=== PATIENT | female | born 1980 | race Caucasian/White ===

== ENCOUNTER → 2020-04-21 11:07 | Outpatient (BNVA) | payer OTHER, SELFPAY | PROVIDERS: Visit Provider Urology | DX: Z76.89 Persons encountering health services in other specified circumstances (principal) | CPT/HCPCS: 99212 ==

== ENCOUNTER 2020-05-02 12:10 | Outpatient (REF) | payer OTHER, SELFPAY ==
[2020-05-02 13:33] LABS: MANUAL DIFF FLAG NO
[2020-05-02 13:48] LABS: Basophils Percent Auto 0.5 % (0-2); Eosinophils Absolute Auto 0.1 X10*3/uL (0.0-0.4); Eosinophils Percent Auto 1.3 % (0-4); Hematocrit 39.8 % (37-47); Hemoglobin 13.7 g/dl (12.0-16.0); Imm Gran Abs Auto 0.02 X10*3/uL (0.00-0.03); Imm Gran Pct Auto 0.2 % (0.0-0.4); Lymphocytes Absolute Auto 1.7 X10*3/uL (1.2-4.9); Lymphocytes Percent Auto 19.8 % (20-40); Mean Corpuscular HGB Conc 34.4 g/dl (31.0-35.0); Mean Corpuscular Hemoglobin 33.8 pg (27.0-33.0); Mean Corpuscular Volume 98.3 fL (80-98); Mean Platelet Volume 10.6 fL (9.4-12.3); Monocytes Absolute Auto 0.6 X10*3/uL (0.1-1.2); Monocytes Percent Auto 7.7 % (2-11); Neutrophils Absolute Auto 5.9 X10*3/uL (2.0-8.3); Neutrophils Percent Auto 70.5 % (45-73); Platelet Count 312 X10*3/uL (160-400); Red Blood Count 4.05 X10*6/uL (4.20-5.50); Red Cell Distribution Width 11.7 % (11.0-16.0); White Blood Count 8.3 X10*3/uL (4.8-10.8)
[2020-05-02 13:51] LABS: Glucose Urine UA NEG (NEG); Leukocyte Esterase Urine NEG (NEG); Nitrite Urine NEG (NEG); PH 5.5 (5.0-8.0); Specific Gravity - Urine 1.025 (1.005-1.025); Urine Blood 2+ (NEG); Urine Ketones NEG (NEG); Urine Protein NEG (NEG-TRACE)
[2020-05-02 13:53] LABS: Appearance Urine HAZY; Color Urine YELLOW
[2020-05-02 14:01] LABS: UACC CULT YES
[2020-05-02 14:02] LABS: Bacteria Urine TRACE /LPF; Squamous Epithelial Cell Urine TRACE /LPF
[2020-05-02 14:38] LABS: Alanine Aminotransferase 17 U/L (0-31); Albumin Level 3.7 g/dL (3.5-5.0); Alkaline Phosphatase 40 U/L (39-117); Anion Gap 12 (12-20); Aspartate Amino Transferase 18 U/L (5-31); Bilirubin Total 0.6 mg/dL (0.0-1.0); Blood Urea Nitrogen 17 mg/dL (9-16); Calcium 8.5 mg/dL (8.4-10.2); Carbon Dioxide 23 mmol/L (22-29); Chloride 104 mmol/L (96-108); Estimated Glomerular Filt Rate > 60; Glucose Random 90 mg/dL (60-115); Potassium 4.1 mmol/l (3.3-5.1); Sodium 135 mmol/L (135-145); Total Protein 6.8 g/dL (6.5-8.0)
[2020-05-02 15:42] LABS: TSH reflex Free T4 1.54 mIU/mL (0.32-4.0)
[2020-05-09 14:22] LABS: Creatinine Random Urine 99 mg/dL (20-275); Metanephrine, Free Rand Ur 133 mcg/g cr (32-134); Normetanephrine, Free Rand Ur 228 mcg/g cr (67-390); Total Metanephrine, Free RU 361 mcg/g cr (94-445)
== END 2020-05-02 12:11 | disposition home or self-care (01) ==
LOC: HO.10HDL 12:10
PROVIDERS: Visit Provider Internal Medicine
DX: I10 Essential (primary) hypertension (principal); R00.0 Tachycardia, unspecified
CPT/HCPCS: 36415; 80053; 81001; 83835; 84443; 85025; 87086

== ENCOUNTER 2020-05-04 08:07 | Outpatient (REF) | payer OTHER, SELFPAY ==
--- NOTE | 2020-05-04 08:12 | US_ITS ---
EXAMINATION: US RENAL ARTERY DOPPLER CLINICAL INFORMATION: Essential hypertension COMPARISON: Ultrasound of October 13, [address] scan of January 10, 2015 TECHNIQUE: Renal ultrasound. . Real-time ultrasound and Doppler techniques (integrating B-mode 2D vascular images, Doppler spectral analysis and color flow Doppler imaging) were utilized to interrogate the renal arteries and aorta. FINDINGS: The right kidney measures 7.0 cm x 3.4 cm x 4.7 cm in sagittal, AP and transverse dimensions. There is a 1.3 x 1.1 x 1.5 cm simple-appearing midpole cyst. No hydronephrosis. No solid renal mass is seen. No cortical thinning is noted. There is normal cortical echogenicity with no evidence of medical renal disease. No obstructing calculi are identified. The left kidney measures 10.9 cm x 5.2 cm x 4.9 cm in sagittal, AP and transverse dimensions. There is a 1 cm midpole cyst which appears complex but is unchanged compared to study of October 13, 2017. There are regions of increased echogenicity consistent with calculi with 2 larger echogenic structures within the lower pole one measuring 3 mm in diameter and the other one 5 mm in diameter consistent with nonobstructing calculi. No hydronephrosis or cortical thinning. RENAL ARTERY VELOCITIES: Right: Proximally: 84 cm/s. Mid: 100 cm/s. Distal: 148 cm/s. Left: Proximally: 122 cm/s. Mid: 77 cm/s. Distally: 44 cm/s. The aortic velocity is 87 cm/s. The renal aortic ratio is 1.7 on the right and 1.4 on the left. These values are within normal limits. Segmental resistive indices: Right: Upper pole 0.52 Mid pole 0.59 Lower pole 0.56 Left: Upper pole 0.51 Midpole 0.57 Lower pole: 0.57 Both renal veins are patent. US/US renal doppler IMPRESSION: 1. Stable bilateral renal cysts with mildly complex left renal cyst compared to study of October 13, 2017. This has the appearance of a Bosniak 2F cyst however has been stable for greater than two-year period. 2. There is no evidence of hemodynamically significant renal artery stenosis. 3. Left nephrolithiasis. Previously noted right renal calculi not definitely identified.
== END 2020-05-04 08:08 | disposition home or self-care (01) ==
LOC: HO.US 08:07
PROVIDERS: PCP Internal Medicine; Visit Provider Urology
DX: N20.0 Calculus of kidney (principal); I10 Essential (primary) hypertension
CPT/HCPCS: 76775; 93975

== ENCOUNTER 2020-06-06 11:11 | Outpatient (REF) | payer OTHER, SELFPAY ==
[2020-06-06 14:18] LABS: Glucose Urine UA NEG (NEG); Leukocyte Esterase Urine 1+ (NEG); Nitrite Urine NEG (NEG); Specific Gravity - Urine 1.015 (1.005-1.025); Urine Blood 2+ (NEG); Urine Ketones NEG (NEG); Urine Protein NEG (NEG-TRACE)
[2020-06-06 14:23] LABS: Appearance Urine HAZY; Color Urine YELLOW
[2020-06-06 14:31] LABS: Cholesterol 168 mg/dL; HDL Cholesterol 53 mg/dL; LDL Cholesterol Calculated 93 mg/dl; Triglycerides 110 mg/dL
[2020-06-06 14:41] LABS: Mucus Urine 1+ /LPF; RBC Urine 0 /HPF (0); Squamous Epithelial Cell Urine 2+ /LPF
== END 2020-06-06 11:12 | disposition home or self-care (01) ==
LOC: HO.10HDL 11:11
PROVIDERS: PCP Internal Medicine; Visit Provider Internal Medicine
DX: R09.89 Other specified symptoms and signs involving the circulatory and respiratory systems (principal); R00.0 Tachycardia, unspecified; I10 Essential (primary) hypertension
CPT/HCPCS: 80061; 81001; 81003; 87086

== ENCOUNTER → 2020-06-14 08:33 | Outpatient (BNVA) | payer OTHER, SELFPAY | PROVIDERS: PCP Internal Medicine; Visit Provider Internal Medicine | DX: I10 Essential (primary) hypertension (principal); R09.89 Other specified symptoms and signs involving the circulatory and respiratory systems; R06.02 Shortness of breath; M45.9 Ankylosing spondylitis of unspecified sites in spine | CPT/HCPCS: 93005; 99202 ==

== ENCOUNTER → 2020-07-12 10:37 | Outpatient (REF) | payer OTHER, SELFPAY ==
--- NOTE | 2020-07-12 10:43 | CA_ITS ---
Acquisition Time: 2020-07-12 11:36:45 Total Exercise Time: 00:10:38 Test Indications: Dyspnea Medications: SEE CHART Protocol: BATOOL Max HR: 169 BPM 93% of Pred: 181 BPM Max BP: 180/100 mmHG Max Work Load: 12.7 METS Exercise stress ECHO using Batool protocol, total of 10 min 38 sec. METS 12.70 , TAPHR up to 93 % . Pt tolerated well. Denies any anginal sx. EKG with occ. PVC's. ECHO images taken at rest and immediately after peak exercise. Defenity contrast used. Hypertensive response to exercise. Test reviewed with Dr. Beebe. No ischemic changes seen during exercise or in recovery Referred By: Sameer Beebe Overread By: Deepthi Forde
--- NOTE | 2020-07-12 10:43 | CA_ITS ---
Transthoracic Echocardiogram Patient (Last, First, Middle): Erendira Joel, Gender: Female Date of : 1980 Age: 39 Procedure Date: 07/12/2020 Procedure Type: Transthoracic Echocardiogram Location: OP Height: 154.94 cm Weight: 58.97 kg BSA: 1.57 m2 Heart Rate: bpm BP: 135 / 90 mmHg Stunner Animal: [id number] Referring MD: Sameer Beebe MD Symptoms: R06.02 - Shortness of breath Study Quality: Good ECG Rhythm: Sinus Conclusions: - The left ventricular systolic function is normal. The visually estimated ejection fraction is between 60-65%. - No obvious valvular pathology seen on this study. Findings Left Ventricle Normal left ventricular cavity size. There is mildly increased left ventricular wall thickness. The left ventricular systolic function is normal. The visually estimated ejection fraction is between 60-65%. There is no evidence of regional wall motion abnormalities. Diastolic function is normal for age. Right Ventricle Normal right ventricular cavity size and systolic function. Atria The left atrium is normal in size. The right atrium is normal in size. Aortic Valve There is a normal trileaflet aortic valve. There is no aortic valve stenosis. There is no aortic valve regurgitation. Mitral Valve The mitral valve appears normal. There is trace mitral valve regurgitation. There is no mitral valve stenosis. Pulmonic Valve The pulmonic valve was not well visualized. Tricuspid Valve Normal tricuspid valve structure. There is trace tricuspid valve regurgitation. The pulmonary artery systolic pressure is normal. Great Vessels The aortic annulus, sinuses of valsalva, and asc aorta are normal in size. Venous The inferior vena cava is normal in size and collapses greater than 50% with inspiration. Pericardium/Pleural There is no evidence of pericardial effusion. Prior Study Comparison No prior study available for comparison. Recommendations, Care & Conclusions No obvious valvular pathology seen on this study. Measurements M-Mode Liner Measurements Normals - Women/Men IVSd: 1.36 0.6-0.9/0.6-1.0 cm LVIDd: 3.87 3.9-5.3/4.2-5.9 cm LVIDd Index: 2.46 1.9-3.2 cm/m2 LVPWd: 1.15 0.6-0.9/0.6-1.0 cm LV Mass: 209.80 67-162/88-224g LV Mass Index: 133.63 43-95/49-115 g/m2 M-Mode Volumes LV EDV: 64.70 2D Linear Measurements IVSd: 1.19 0.6-0.9/0.6-1.0 cm LVIDd: 4.12 3.9-5.3/4.2-5.9 cm LVIDd Index: 2.62 2.4-3.2/2.2-3.1 cm/m2 LVIDs: 2.76 2.0-3.6 cm LVPWd: 1.20 0.7-1.1 cm Ao Root: 2.60 2.1-3.5 cm LA Diam: 3.50 2.7-3.8/3.0-4.0 cm LAIDs Index: 2.23 1.5-2.3 cm/m2 LV Mass: 214.20 67-162/88-224 g LV Mass Index: 136.43 43-95/49-115 g/m2 LVOT Diam: 1.90 3.0+(-)1.3 cm 2D Systolic Function EF 4C: 68.20 >55% EF 2C: 53.00 >55% EF BiP: 62.20 >55% Mitral Valve MV Pk E: 0.63 MV PK A: 0.55 MV Decel Time: 148.00 E/A: 1.20 E'Lateral: 10.30 E'Medial: 8.61 E/E' Med: 7.30 E/E' Lat: 6.10 PHT: 43.00 MVA PHT: 5.12 Decel [place]: 4.[address] Valve AoV Pk [address]: 1.33 AoV Pk Grad: 7.[address]: 1.[address]: 0.76 LVOT VTI: 0.22 LVOT Pk Grad: 5.00 LVOT Mn Grad: 3.00 LVOT Diam: 1.90 LVOT Area: 2.84 Diastolic Function MV Pk E: 0.63 MV Pk A: 0.55 E/A: 1.20 E'Medial: 8.61 E/E' Med: 7.30 E' Laterial: 10.30 E/E' Lat: 6.[address]: 1.94 TR Pk Grad: 15.00 RA Press: 3.00 Great Vessels Aorta Ao Root-2D: 2.60 2.0-3.7 cm Ao Asc: 2.70 2.1-3.4 cm Updated in Other Vendor System with Status of Final Sameer Beebe MD electronically signed on 07/14/2020 4:01:42 PM with status of Final
== END ==
LOC: HO.CARD 10:37
PROVIDERS: Visit Provider Internal Medicine
DX: R06.02 Shortness of breath (principal)
CPT/HCPCS: 93306; 93350; Q9957

== ENCOUNTER → 2020-07-19 09:01 | Outpatient (BNVA) | payer OTHER, SELFPAY | PROVIDERS: PCP Internal Medicine; Visit Provider Internal Medicine | DX: R09.89 Other specified symptoms and signs involving the circulatory and respiratory systems (principal); R06.02 Shortness of breath; M45.9 Ankylosing spondylitis of unspecified sites in spine | CPT/HCPCS: 99212 ==

== ENCOUNTER 2020-07-21 18:06 | Outpatient (REF) | payer OTHER, SELFPAY | END 2020-07-21 18:07 | disposition home or self-care (01) | LOC: HO.LNP 18:06 | PROVIDERS: Visit Provider Internal Medicine | DX: J02.9 Acute pharyngitis, unspecified (principal); Z20.822 Contact with and (suspected) exposure to COVID-19 | CPT/HCPCS: U0003 ==

== ENCOUNTER → 2020-08-30 12:33 | Outpatient (BNVA) | payer OTHER, SELFPAY | PROVIDERS: PCP Internal Medicine; Visit Provider Internal Medicine | DX: R09.89 Other specified symptoms and signs involving the circulatory and respiratory systems (principal); R06.02 Shortness of breath; M54.9 Dorsalgia, unspecified; Z79.899 Other long term (current) drug therapy | CPT/HCPCS: Q3014 ==

== ENCOUNTER 2021-03-13 09:36 | Outpatient (REF) | payer OTHER, SELFPAY ==
[2021-03-13 10:07] LABS: Appearance Urine HAZY; Color Urine YELLOW; Glucose Urine UA NEG (NEG); Leukocyte Esterase Urine 2+ (NEG); Nitrite Urine NEG (NEG); Specific Gravity - Urine 1.025 (1.005-1.025); Urine Blood 2+ (NEG); Urine Ketones NEG (NEG); Urine Protein NEG (NEG-TRACE)
[2021-03-13 10:23] LABS: Bacteria Urine 2+ /LPF; Squamous Epithelial Cell Urine 2+ /LPF
== END 2021-03-13 09:37 | disposition home or self-care (01) ==
LOC: HO.10HDL 09:36
PROVIDERS: Visit Provider Urology
DX: N39.0 Urinary tract infection, site not specified (principal)
CPT/HCPCS: 81001; 87086

== ENCOUNTER 2021-06-26 17:19 | Outpatient (REF) | payer OTHER, SELFPAY | END 2021-06-26 17:20 | disposition home or self-care (01) | LOC: HO.LNP 17:19 | PROVIDERS: Visit Provider Nurse Practitioner Family | DX: R35.0 Frequency of micturition (principal) | CPT/HCPCS: 87086 ==

== ENCOUNTER 2021-07-23 10:03 | Outpatient (REF) | payer OTHER, SELFPAY ==
[2021-07-23 15:51] LABS: CT PCR NOT DETECTED (Not Detect.); NG PCR NOT DETECTED (Not Detect.)
[2021-07-24 15:47] LABS: BV Int Neg Control Negative (Negative); BV Int Pos Control Positive (Positive)
[2021-07-25 22:26] LABS: HPV mRNA E6/E7 rflx Not Detected (Not Detected)
== END 2021-07-23 10:04 | disposition home or self-care (01) ==
LOC: HO.LAB 10:03
PROVIDERS: PCP Internal Medicine; Visit Provider Advanced Practice Midwife
DX: Z01.411 Encounter for gynecological examination (general) (routine) with abnormal findings (principal); Z11.51 Encounter for screening for human papillomavirus (HPV); R10.2 Pelvic and perineal pain; Z20.2 Contact with and (suspected) exposure to infections with a predominantly sexual mode of transmission
CPT/HCPCS: 81003; 81025; 87086; 87480; 87491; 87510; 87591; 87624; 87660; 88142

== ENCOUNTER 2021-07-26 15:32 | Outpatient (REF) | payer OTHER, SELFPAY ==
--- NOTE | ~2021-07-26 | MM_ITS ---
EXAMINATION: MM SCREENING DIGITAL BREAST TOMOSYNTHESIS, BILATERAL CLINICAL INFORMATION: Screening. Asymptomatic. The lifetime risk of breast cancer based on the Tyrer-Cuzick Model is 11.8%. COMPARISON: Mammography: None TECHNIQUE: Digital mammography is performed in craniocaudal and mediolateral oblique views along with computer-aided detection (CAD). Digital breast tomosynthesis is performed in implant-displaced craniocaudal and implant-displaced mediolateral oblique views along with computer-aided detection (CAD). Synthesized 2D images are generated from the tomosynthesis. FINDINGS: The breasts are heterogeneously dense, which may obscure small masses (ACR BI-RADS breast composition Category c). There are no significant masses, abnormal calcifications, or other abnormalities. MM/MM tomosynthesis screen imp BI IMPRESSION: No mammographic evidence of malignancy. ASSESSMENT: BI-RADS 1: Negative RECOMMENDATION: Routine annual mammography screening. This patient's information was entered into a reminder system with a target due date for their next mammogram.
== END 2021-07-26 15:33 | disposition home or self-care (01) ==
LOC: HO.MAMMO 15:32
PROVIDERS: PCP Internal Medicine; Visit Provider Advanced Practice Midwife
DX: Z12.31 Encounter for screening mammogram for malignant neoplasm of breast (principal); Z98.82 Breast implant status
CPT/HCPCS: 77063; 77067

== ENCOUNTER 2021-08-07 11:30 | Outpatient (REF) | payer OTHER, SELFPAY ==
[2021-08-08 03:43] LABS: Syphilis Screen Nonreactive (Nonreactive)
[2021-08-08 03:46] LABS: HBc Num1 0.08 S/CO (0.00-0.79); HIV AB/AG Nonreactive (Nonreactive); HIV Num 1 0.08 S/CO (0.00-0.99); Hepatitis B Core Antibody Nonreactive (Nonreactive)
[2021-08-08 04:00] LABS: ~HepC Num1 0.09 S/CO (0.00-0.79); ~Hepatitis C Antibody Nonreactive (Nonreactive)
== END 2021-08-07 11:31 | disposition home or self-care (01) ==
LOC: HO.10HDL 11:30
PROVIDERS: Visit Provider Advanced Practice Midwife
DX: Z11.4 Encounter for screening for human immunodeficiency virus [HIV] (principal); Z20.2 Contact with and (suspected) exposure to infections with a predominantly sexual mode of transmission
CPT/HCPCS: 36415; 86704; 86780; 86803; 87389

== ENCOUNTER 2021-08-15 11:06 | Outpatient (REF) | payer OTHER, SELFPAY ==
--- NOTE | ~2021-08-15 | US_ITS ---
EXAMINATION: US PELVIS CLINICAL INFORMATION: Pelvic and perineal pain COMPARISON: None TECHNIQUE: Ultrasound of the pelvis is performed using both transabdominal and transvaginal transducers along with Doppler. Transvaginal imaging is performed due to inadequate visualization transabdominally. FINDINGS: The uterus is anteverted and measures 8.1 x 3.3 x 5.5 cm in dimension. No focal uterine lesion is seen. Endometrial thickness is normal measuring 0.6 cm. The ovaries are normal-appearing. The right ovary measures 3.5 x 1.2 x 2.9 cm. The left ovary measures 2.9 x 1.5 x 2 cm. There is no fluid in the pelvis. US/US pelvic and transvaginal IMPRESSION: Unremarkable exam.
== END 2021-08-15 11:07 | disposition home or self-care (01) ==
LOC: HO.US 11:06
PROVIDERS: Absent Provider Nurse Practitioner Family; PCP Internal Medicine; Visit Provider Advanced Practice Midwife
DX: R10.2 Pelvic and perineal pain (principal)
CPT/HCPCS: 76830; 76856

== ENCOUNTER 2021-08-20 12:47 | Outpatient (REF) | payer OTHER, SELFPAY ==
[2021-08-20 14:03] LABS: Hematocrit 38.8 % (37.0-47.0); Hemoglobin 13.2 g/dl (12.0-16.0); Mean Corpuscular Hemoglobin 33.4 pg (27.0-33.0); Mean Corpuscular Volume 98.2 fL (80.0-98.0); Mean Platelet Volume 10.5 fL (9.4-12.3); Platelet Count 310 X10*3/uL (160-400); Red Blood Count 3.95 X10*6/uL (4.20-5.50); Red Cell Distribution Width 11.6 % (11.0-16.0); White Blood Count 7.9 X10*3/uL (4.8-10.8)
[2021-08-20 14:25] LABS: Creatinine Urine 115.25 mg/dL; Microalbum/Creatinine Ratio Ur 7.8 ug/mg cr
[2021-08-20 14:33] LABS: Alanine Aminotransferase 18 U/L (0-31); Albumin Level 3.7 g/dL (3.5-5.0); Alkaline Phosphatase 47 U/L (39-117); Anion Gap 11 (12-20); Aspartate Amino Transferase 17 U/L (5-31); Bilirubin Direct 0.2 mg/dL (0.0-0.5); Bilirubin Total 0.5 mg/dL (0.0-1.0); Blood Urea Nitrogen 17 mg/dL (9-16); Carbon Dioxide 24 mmol/L (22-29); Chloride 106 mmol/L (96-108); Estimated Glomerular Filt Rate > 60; Glucose Random 88 mg/dL (60-115); Potassium 4.2 mmol/L (3.3-5.1); Sodium 137 mmol/L (135-145); Total Protein 6.7 g/dL (6.5-8.0)
== END 2021-08-20 12:48 | disposition home or self-care (01) ==
LOC: HO.10HDL 12:47
PROVIDERS: Visit Provider Physician Assistant
DX: I10 Essential (primary) hypertension (principal)
CPT/HCPCS: 36415; 80048; 80076; 82043; 85027

== ENCOUNTER 2021-08-25 13:00 | Emergency (ER) | payer OTHER, SELFPAY ==
--- NOTE | ~2021-08-25 | CT_ITS ---
EXAMINATION: CT HEAD WITHOUT CONTRAST CLINICAL INFORMATION: Hypertension. Headache. Nausea. COMPARISON: None TECHNIQUE: Contiguous axial imaging was performed from the skull base to vertex without intravenous administration of contrast. This CT examination was performed using dose optimization techniques as appropriate, variously including the following: *Automated exposure control *Adjustment of mA and/or kV according to patient size (this includes techniques or standardized protocols for targeted exams where dose is matched to indication/reason for exam; i.e. extremities or head) *Use of iterative reconstruction technique DLP: 609 mGy-cm FINDINGS: There is no evidence of acute intracranial hemorrhage or territorial infarction. No abnormal mass effect or midline shift is seen. Wang to white matter differentiation is well preserved. No extra-axial fluid collections are identified. The ventricles are normal in size. There is no abnormal attenuation within the brain parenchyma. The osseous structures and soft tissues are normal. The mastoid air cells and visualized portions of the paranasal sinuses are well aerated. CT/CT head/brain wo con IMPRESSION: Unremarkable exam.
[2021-08-25 13:14] VITALS: BP 140/89; PULSE 94; RESP 16; TEMP 36.5; O2SAT 100; BMI 24.5
--- NOTE | 2021-08-25 13:46 | ECG_ITS ---
Test Reason : hypertension Blood Pressure : / mmHG Vent. Rate : 070 BPM Atrial Rate : 070 BPM P-R Int : 154 ms QRS Dur : 086 ms QT Int : 384 ms P-R-T Axes : 046 039 030 degrees QTc Int : 414 ms Normal sinus rhythm with sinus arrhythmia Normal ECG No previous ECGs available Referred By: Maddi Garvey Electronically Signed By:Lewis Dotson
--- NOTE | 2021-08-25 13:48 | ED.GENADULT ---
HPI - General Adult General Chief complaint: General Medical <Maddi Garvey NP - Last Filed: 08/25/21 15:57> Stated complaint: high bp <Maddi Garvey NP - Last Filed: 08/25/21 15:57> Time Seen by Provider: 08/25/21 13:25 <Maddi Garvey NP - Last Filed: 08/25/21 15:57> Source: patient <Maddi Garvey NP - Last Filed: 08/25/21 15:57> Mode of arrival: ambulatory <Maddi Garvey NP - Last Filed: 08/25/21 15:57> Limitations: no limitations <Maddi Garvey NP - Last Filed: 08/25/21 15:57> History of Present Illness HPI narrative: 40yo female with past medical history significant for ankylosing spondylitis on embrel, tachycardia, chronic UTI, nephrolithiasis here with reports of intermittent headaches/nausea for the last month. Patient tells me that she has had some elevated blood pressure over the last year. She has been seen by her primary care doctor and they been monitoring it. She had been seen by Dr. Beebe from Cardiology and was started on amlodipine 5 mg daily. Patient reports she was intermittently compliant with this. She did have an outpatient stress test last year which she tells me was normal. Patient tells me she was trying to manage her blood pressure by exercising, limiting sodium and caffeine in her diet. Patient reports that she was doing this dental about 1 month ago when she started to have some headaches and nausea. She is our primary care doctor and she started back on her amlodipine 5 mg on August 20. She tells me she has been monitor her blood pressure and stool was noted that her diastolic blood pressure was over 100. She called back her primary care doctor and they added hydrochlorothiazide 12.5 mg which she has been taking for the last 48 hours. Patient tells me that she feels like her blood pressure is still elevated. She has been having continued headaches and nausea and after speaking to her primary care doctor today it was recommended she come to the emergency room to have a CT scan of her head. Patient tells me that she had labs, urine testing on August 20 by her primary care doctor which were all normal. She is scheduled to have an outpatient renal ultrasound on September 04. She has had a previous renal US 2020 was negative for renal artery stenosis <Maddi Garvey NP - Last Filed: 08/25/21 15:57> Related Data Home medications: Home Medications Medication Instructions Recorded Confirmed fexofenadine 180 mg tablet 180 mg PO DAILY PRN 05/03/21 08/20/21 etanercept 50 mg/mL (1 mL) mg SUBCUT 06/26/21 08/20/21 subcutaneous cartridge (Enbrel Mini) Previous Rx's Medication Instructions Recorded amlodipine 5 mg tablet 5 mg PO DAILY 30 Days #30 tab 08/20/21 hydrochlorothiazide 12.5 mg tablet 12.5 mg PO DAILY 30 Days #30 tab 08/23/21 <Maddi Garvey NP - Last Filed: 08/25/21 15:57> Allergies/adverse reactions: Allergies Allergy/AdvReac Type Severity Reaction Status Date / Time No Known Allergies Allergy Verified 08/29/21 11:36 <Maddi Garvey NP - Last Filed: 08/25/21 15:57> Review of Systems Review of Systems: Yes all other systems are reviewed and are negative <HEBERT Barillas Last Filed: 08/25/21 15:57> Constitutional: Constitutional: Reports no additional constitutional complaints, Denies body ache(s), Denies chills, Denies fever(s), Reports headache(s) and Denies weakness <Maddi Garvey NP - Last Filed: 08/25/21 15:57> Eyes: Eyes: Reports no additional eye complaints and Denies change in vision <Maddi Garvey NP - Last Filed: 08/25/21 15:57> ENT: Reports system reviewed and no additional complaints, except as documented, Denies dizziness, Reports headache(s), Denies nasal congestion, Denies nasal discharge and Denies neck pain <Maddi Garvey NP - Last Filed: 08/25/21 15:57> Cardiovascular: Cardiovascular: Reports no additional cardiovascular complaints, Denies chest pain, Denies leg edema and Denies dyspnea <HEBERT Barillas Last Filed: 08/25/21 15:57> Respiratory: Respiratory: Reports no additional respiratory complaints, Denies cough and Denies dyspnea <Maddi Garvey NP - Last Filed: 08/25/21 15:57> Gastrointestinal: Gastrointestinal: Reports no additional gastrointestinal complaints, Denies abdominal pain, Denies diarrhea, Reports nausea and Denies vomiting <Maddi Garvey NP - Last Filed: 08/25/21 15:57> Genitourinary: Genitourinary: Reports no additional female genitourinary complaints and Denies urinary incontinence <Maddi Garvey NP - Last Filed: 08/25/21 15:57> Musculoskeletal: Musculoskeletal: Reports no additional musculoskeletal complaints, Denies back pain, Denies arthralgias, Denies joint swelling, Denies neck pain, Denies numbness and Denies tingling <Maddi Garvey NP - Last Filed: 08/25/21 15:57> Integumentary/Breasts: Skin/Breast: Reports system reviewed and no additional complaints, except as docu and Denies rash <Maddi Garvey NP - Last Filed: 08/25/21 15:57> Neurologic: Reports system reviewed and no additional complaints, except as documented, Denies dizziness, Reports headache(s), Denies numbness, Denies tingling and Denies weakness <Maddi Garvey NP - Last Filed: 08/25/21 15:57> [facility], [facility] Past Medical History Attestation statement: The following information was validated with the patient. <Maddi Garvey NP - Last Filed: 08/25/21 15:57> Source: old records reviewed and nursing notes reviewed <Maddi Garevy NP - Last Filed: 08/25/21 15:57> Medical History: Medical History Ankylosing spondylitis Benign essential hypertension Echocardiogram abnormal (~12/2009) GERD without esophagitis History of kidney stones Labile hypertension Tachycardia Vitamin D deficiency <Maddi Garvey NP - Last Filed: 08/25/21 15:57> Surgical History: Surgical History History of arthroscopy of left knee History of augmentation of both breasts History of section History of cystoscopy History of esophagogastroduodenoscopy (EGD) <HEBERT Barillas Last Filed: 08/25/21 15:57> Family History Family History: Family History Father Hypercholesteremia Hypertension Mother Hypercholesteremia Hypertension Diabetes Maternal Grandmother History of breast cancer <HEBERT Barillas Last Filed: 08/25/21 15:57> Social History Social History: Social History Housing: House Alcohol intake: never Patient Tobacco Use Status: Never used Tobacco e-Cigarette/Vaping Use: Never Used Second Hand Smoke Exposure: No service: No Current occupational status: employed Cognitive needs: No Hearing needs: No Vision needs: No <HEBERT Barillas Last Filed: 08/25/21 15:57> Physical Exam ED Vital Signs: Vital Signs - 24 hr 08/25/21 13:14 Temperature 97.7 F Pulse Rate 94 Respiratory Rate 16 Blood Pressure 140/89 H Pulse Oximetry 100 BMI result Body Mass Index 24.5 <HEBERT Barillas Last Filed: 08/25/21 15:57> Const General: cooperative, healthy appearing, comfortable and no acute distress <HEBERT Barillas Last Filed: 08/25/21 15:57> Nutritional Appearance: average body habitus <HEBERT Barillas Last Filed: 08/25/21 15:57> Orientation/consciousness: patient oriented x3 <HEBERT Barillas Last Filed: 08/25/21 15:57> Limitations: no limitations <HEBERT Barillas Last Filed: 08/25/21 15:57> HENMT Head: Yes normal to inspection <HEBERT Barillas Last Filed: 08/25/21 15:57> Ears: hearing grossly normal bilaterally and TM's normal bilaterally <HEBERT Barillas Last Filed: 08/25/21 15:57> General nose exam: Normal external nose present <Maddi Garvey NP - Last Filed: 08/25/21 15:57> Face and sinus: Yes normal facial exam <Maddi Garvey NP - Last Filed: 08/25/21 15:57> Mouth: Normal oral and palatal mucosa present <Maddi Garvey NP - Last Filed: 08/25/21 15:57> Teeth and gingiva: dentition normal <Maddi Garvey NP - Last Filed: 08/25/21 15:57> Throat: Yes posterior oropharynx normal and Yes tonsils normal <Maddi Garvey NP - Last Filed: 08/25/21 15:57> Eyes General: appearance normal, both eyes and all related structures <Maddi Garvey NP - Last Filed: 08/25/21 15:57> Visual Dillon: normal visual dillon by confrontation <Maddi Garvey NP - Last Filed: 08/25/21 15:57> Alignment and Position: alignment normal <Maddi Garvey NP - Last Filed: 08/25/21 15:57> Periorbital: periorbital findings normal <Maddi Garvey NP - Last Filed: 08/25/21 15:57> Eyelids: Yes eyelids normal <Maddi Garvey NP - Last Filed: 08/25/21 15:57> Conjunctivae: conjunctivae normal <Maddi Garvey NP - Last Filed: 08/25/21 15:57> Sclerae: sclerae normal <Maddi Garvey NP - Last Filed: 08/25/21 15:57> Corneas: corneas normal <Maddi Garvey NP - Last Filed: 08/25/21 15:57> Pupils: Equal, round and reactive pupils present <Maddi Garvey NP - Last Filed: 08/25/21 15:57> EOM: EOMs intact bilaterally <Maddi Garvey NP - Last Filed: 08/25/21 15:57> Direct Ophthalmoscopy: normal light reflex <Maddi Garvey NP - Last Filed: 08/25/21 15:57> Neck Neck: Yes normal visual inspection, Yes full ROM and Yes no lymphadenopathy <Maddi Garvey NP - Last Filed: 08/25/21 15:57> Chest Chest palpation & inspection: normal inspection of the chest <Maddi Garvey NP - Last Filed: 08/25/21 15:57> Resp Effort & Inspection: normal respiratory effort <Maddi Garvey NP - Last Filed: 08/25/21 15:57> Auscultation: clear to auscultation bilaterally <Maddi Garvey NP - Last Filed: 08/25/21 15:57> Cardio Rate: regular rate <Maddi Garvey NP - Last Filed: 08/25/21 15:57> Rhythm: regular rhythm <Maddi Garvey NP - Last Filed: 08/25/21 15:57> GI Inspection: Yes normal to inspection <Maddi Garvey NP - Last Filed: 08/25/21 15:57> Palpation (GI): Soft to palpation and nontender <Maddi Garvey [employer] - Last Filed: 08/25/21 15:57> General: Yes no CVA tenderness <Maddi Garvey NP - Last Filed: 08/25/21 15:57> Back/Spine/Pelvis Back: no CVA tenderness <Maddi Garvey NP - Last Filed: 08/25/21 15:57> Skin General skin exam: no rashes or lesions noted <Maddi Garvey NP - Last Filed: 08/25/21 15:57> Neuro General: patient oriented x3 and moves all extremities <Maddi Garvey NP - Last Filed: 08/25/21 15:57> Cranial nerves: Yes CN's II-XII intact bilaterally, Yes Equal, round and reactive pupils present, Yes Bilaterally intact EOM present, Yes Nystagmus not present, Yes Normal facial strength present and Yes Midline tongue present <Maddi Garvey NP - Last Filed: 08/25/21 15:57> Gait exam (Neuro): Normal gait present <HEBERT Barillas Last Filed: 08/25/21 15:57> Motor exam (neuro): 5/5 motor strength present throughout <Maddi Garvey NP - Last Filed: 08/25/21 15:57> Sensory Exam: Normal double simultaneous stimulation for sensation <Maddi Garvey NP - Last Filed: 08/25/21 15:57> Extrem General: Yes normal to inspection, Yes no pedal edema and Yes no calf tenderness <HEBERT Barillas Last Filed: 08/25/21 15:57> Course Course Course Narrative: 40-year-old female here with reports of headache and nausea with associated high blood pressure and despite starting Norvasc on August 20 and hydrochlorothiazide on August 23. Normal neuro exam. Blood pressure 140/98. Patient had outpatient labs, urine testing on August 20 by her primary care doctor and I do not believe that we need to repeat those. She is scheduled for an outpatient renal ultrasound on August 07 and has already been worked up for renal artery stenosis. Will check EKG, CT head due to symptomatic hypertension 1540-EKG shows no signs of LVH. CT head negative for any intracranial abnormality. Discussed this with the patient. Her blood pressure here is 140/98. At this point would not change her medications. She can follow up as scheduled with her outpatient provider for any medication adjustments. Reviewed worrisome signs and symptoms of when to return to the emergency department. Comfortable discharge home. <HEBERT Barillas Last Filed: 08/25/21 15:57> Medical Decision Making Medical Records Medical records reviewed: Yes I reviewed the patient's medical records. <Maddi Garvey NP - Last Filed: 08/25/21 15:57> Lab Data Lab results reviewed: Yes I reviewed the patient's lab results. <HEBERT Barillas Last Filed: 08/25/21 15:57> Labs: Lab Results 08/25/21 Range/Units 14:06 Urine Test NEGATIVE (NEGATIVE) <HEBERT Barillas Last Filed: 08/25/21 15:57> Imaging Data CT scan - head: Attestation: I personally reviewed and interpreted this imaging study as follows: <Maddi Garvey NP - Last Filed: 08/25/21 15:57> Radiologist's impression: FINDINGS: There is no evidence of acute intracranial hemorrhage or territorial infarction. No abnormal mass effect or midline shift is seen. Wang to white matter differentiation is well preserved. No extra-axial fluid collections are identified. The ventricles are normal in size. There is no abnormal attenuation within the brain parenchyma. The osseous structures and soft tissues are normal. The mastoid air cells and visualized portions of the paranasal sinuses are well aerated. ? CT/CT head/brain wo con IMPRESSION: Unremarkable exam. <Maddi Garvey NP - Last Filed: 08/25/21 15:57> ECG Data Attestation: I personally reviewed and interpreted this ECG as follows: <Maddi Garvey NP - Last Filed: 08/25/21 15:57> Interpretation: Normal sinus rhythm with a rate of 70, normal [place], normal QRS, normal QT <HEBERT Barillas Last Filed: 08/25/21 15:57> Discharge Plan Discharge Clinical Impression: Hypertension <HEBERT Barillas Last Filed: 08/25/21 15:57> Patient Disposition: Home, Self-Care <HEBERT Barillas Last Filed: 08/25/21 15:57> Instructions: Hypertension (ED) <HEBERT Barillas Last Filed: 08/25/21 15:57> Additional Instructions: Continue your home medication Follow-up with primary care doctor as scheduled <Maddi Garvey NP - Last Filed: 08/25/21 15:57> Prescriptions: No Action hydrochlorothiazide 12.5 mg tablet 12.5 mg PO DAILY 30 Days Qty: 30 0RF fexofenadine 180 mg tablet 180 mg PO DAILY PRN (Reason: allergy symptoms) 0RF amlodipine 5 mg tablet 5 mg PO DAILY 30 Days Qty: 30 0RF Enbrel Mini 50 mg/mL (1 mL) cartridge subcut 0RF <HEBERT Barillas Last Filed: 08/25/21 15:57> Referrals: Juanpablo Javier MD [Primary Care Provider] - 1 week <Maddi Garvey NP - Last Filed: 08/25/21 15:57> Interventions: ED Discharge Assessment Last Done: 08/25/21 16:08 <Maddi Garvey NP - Last Filed: 08/25/21 15:57> Discharge Date/Time: 08/25/21 16:09 <Maddi Garvey NP - Last Filed: 08/25/21 15:57>
[2021-08-25 14:14] LABS: UPreg QC Valid YES; Urine Pregnancy NEGATIVE (NEGATIVE)
== END 2021-08-25 16:09 | disposition home or self-care (01) ==
PROVIDERS: Nurse Practitioner Family; Emergency Provider Emergency Medicine; PCP Internal Medicine
DX: I10 Essential (primary) hypertension (principal); R51.9 Headache, unspecified
CPT/HCPCS: 70450; 81025; 93005; 99283; 99284

== ENCOUNTER → 2021-08-29 11:36 | Outpatient (BNVA) | payer OTHER, SELFPAY | PROVIDERS: PCP Internal Medicine; Visit Provider Advanced Practice Midwife ==

== ENCOUNTER 2021-09-04 14:46 | Outpatient (REF) | payer OTHER, SELFPAY ==
--- NOTE | ~2021-09-04 | US_ITS ---
EXAMINATION: US RETROPERITONEAL LIMITED (RENAL ONLY) CLINICAL INFORMATION: Calculus of kidney. COMPARISON: Renal ultrasound 05/04/2020 and 10/13/2017. X-ray KUB 04/08/2017 and 04/20/2016. CT abdomen and pelvis 01/10/2015. TECHNIQUE: Real-time imaging of the kidneys. FINDINGS: RIGHT KIDNEY: 11.0 x 4.0 x 6.1 cm (SAG x AP x TRV). The kidney is normal in size, contour, and echogenicity. Renal cortical thickness is normal. No hydronephrosis. There is anechoic cyst measuring 1.8 x 1.2 x 1.8 cm in the midpole. There are multiple tiny echogenic calcification seen with the largest in the midpole measuring 0.22 x 1 0.15 x 0.17 cm. LEFT KIDNEY: 11.4 x 4.7 x 4.6 cm (SAG x AP x TRV). The kidney is normal in size, contour, and echogenicity. Renal cortical thickness is normal. No focal parenchymal lesions or hydronephrosis. There are several echogenic stones with the largest stone in the midpole measuring 0.3 x 0.2 cm. US/US renal BI IMPRESSION: There are multiple left echogenic stones with largest echogenic0.3 cm stone. No caliectasis or hydronephrosis. Small cyst right kidney midpole.
== END 2021-09-04 14:47 | disposition home or self-care (01) ==
LOC: HO.US 14:46
PROVIDERS: PCP Internal Medicine; Visit Provider Urology
DX: N20.0 Calculus of kidney (principal)
CPT/HCPCS: 76775

== ENCOUNTER → 2021-09-11 10:16 | Outpatient (BNVA) | payer OTHER, SELFPAY | PROVIDERS: PCP Internal Medicine; Visit Provider Urology | DX: N39.0 Urinary tract infection, site not specified (principal); Z87.442 Personal history of urinary calculi | CPT/HCPCS: Q3014 ==

== ENCOUNTER 2021-11-09 12:42 | Outpatient (REF) | payer OTHER, SELFPAY ==
[2021-11-09 13:00] LABS: MANUAL DIFF FLAG NO
[2021-11-09 13:50] LABS: Basophils Percent Auto 0.3 % (0-2); Eosinophils Absolute Auto 0.1 X10*3/uL (0.0-0.4); Eosinophils Percent Auto 1.8 % (0-4); Hematocrit 36.8 % (37.0-47.0); Hemoglobin 12.5 g/dl (12.0-16.0); Imm Gran Abs Auto 0.02 X10*3/uL (0.00-0.03); Imm Gran Pct Auto 0.3 % (0.0-0.4); Lymphocytes Absolute Auto 1.9 X10*3/uL (1.2-4.9); Lymphocytes Percent Auto 26.2 % (20-40); Mean Corpuscular Hemoglobin 32.8 pg (27.0-33.0); Mean Corpuscular Volume 96.6 fL (80.0-98.0); Mean Platelet Volume 10.2 fL (9.4-12.3); Monocytes Absolute Auto 0.7 X10*3/uL (0.1-1.2); Monocytes Percent Auto 8.9 % (2-11); Neutrophils Absolute Auto 4.6 x10*3/uL (2.0-8.3); Neutrophils Percent Auto 62.5 % (45-73); Platelet Count 318 X10*3/uL (160-400); Red Blood Count 3.81 X10*6/uL (4.20-5.50); Red Cell Distribution Width 12.1 % (11.0-16.0); White Blood Count 7.3 X10*3/uL (4.8-10.8)
[2021-11-09 14:14] LABS: Alanine Aminotransferase 25 U/L (0-31); Albumin Level 3.8 g/dL (3.5-5.0); Alkaline Phosphatase 51 U/L (39-117); Anion Gap 10 (12-20); Aspartate Amino Transferase 19 U/L (5-31); Bilirubin Total 0.7 mg/dL (0.0-1.0); Blood Urea Nitrogen 14 mg/dL (9-16); Calcium 9.1 mg/dL (8.4-10.2); Carbon Dioxide 27 mmol/L (22-29); Chloride 103 mmol/L (96-108); Cholesterol 187 mg/dL; Estimated Glomerular Filt Rate > 60; Glucose Fasting 86 mg/dL (60-99); HDL Cholesterol 51 mg/dL; LDL Cholesterol Calculated 122 mg/dl; Potassium 4.2 mmol/L (3.3-5.1); Sodium 136 mmol/L (135-145); Total Protein 6.7 g/dL (6.5-8.0); Triglycerides 70 mg/dL
[2021-11-09 14:39] LABS: TSH reflex Free T4 2.52 uIU/mL (0.32-4.0); Vitamin D 25-OH Total 26.6 ng/mL (>30)
[2021-11-09 15:06] LABS: Appearance Urine CLEAR; Color Urine YELLOW; Glucose Urine UA NEG (NEG); Leukocyte Esterase Urine 1+ (NEG); Nitrite Urine NEG (NEG); Specific Gravity - Urine 1.015 (1.005-1.025); UACC Culture Trigger YES; Urine Blood 1+ (NEG); Urine Ketones NEG (NEG); Urine Protein NEG (NEG-TRACE)
[2021-11-09 15:21] LABS: WBC Urine 0-2 /HPF (0-4)
[2021-11-09 15:22] LABS: Bacteria Urine 1+ /LPF; Squamous Epithelial Cell Urine 1+ /LPF
[2021-11-11 15:47] LABS: TS Negative Control Passed; TS Panel A 0; TS Panel B 1; TS Positive Control Passed; TSpotTB Negative (Negative)
== END 2021-11-09 12:43 | disposition home or self-care (01) ==
LOC: HO.LAB 12:42
PROVIDERS: Physician Assistant; PCP Internal Medicine; Visit Provider Internal Medicine
DX: Z00.00 Encounter for general adult medical examination without abnormal findings (principal); I10 Essential (primary) hypertension; E55.9 Vitamin D deficiency, unspecified; R76.12 Nonspecific reaction to cell mediated immunity measurement of gamma interferon antigen response without active tuberculosis
CPT/HCPCS: 36415; 80053; 80061; 81001; 81003; 82306; 84443; 85025; 86481; 87086

== ENCOUNTER 2022-03-18 17:09 | Outpatient (REF) | payer OTHER, SELFPAY ==
[2022-03-18 17:24] LABS: MANUAL DIFF FLAG NO
[2022-03-18 17:42] LABS: Basophils Percent Auto 0.4 % (0-2); Eosinophils Absolute Auto 0.1 X10*3/uL (0.0-0.4); Eosinophils Percent Auto 1.2 % (0-4); Hematocrit 38.1 % (37.0-47.0); Hemoglobin 12.8 g/dl (12.0-16.0); Imm Gran Abs Auto 0.03 X10*3/uL (0.00-0.03); Imm Gran Pct Auto 0.4 % (0.0-0.4); Lymphocytes Percent Auto 26.3 % (20-40); Mean Corpuscular HGB Conc 33.6 g/dl (31.0-35.0); Mean Corpuscular Hemoglobin 32.4 pg (27.0-33.0); Mean Corpuscular Volume 96.5 fL (80.0-98.0); Mean Platelet Volume 9.6 fL (9.4-12.3); Monocytes Absolute Auto 0.7 X10*3/uL (0.1-1.2); Monocytes Percent Auto 8.7 % (2-11); Neutrophils Absolute Auto 4.8 x10*3/uL (2.0-8.3); Platelet Count 308 X10*3/uL (160-400); Red Blood Count 3.95 X10*6/uL (4.20-5.50); Red Cell Distribution Width 12.1 % (11.0-16.0); White Blood Count 7.6 X10*3/uL (4.8-10.8)
[2022-03-18 17:46] LABS: Appearance Urine Clear; Color Urine Yellow; Glucose Urine UA Negative (Negative); Leukocyte Esterase Urine Trace (Negative); Nitrite Urine Negative (Negative); PH 5.5 (5.0-9.0); UMIC TRIGGER UACC YES; Urine Blood Moderate (2+) (Negative); Urine Ketones Negative (Negative); Urine Protein Negative (Neg-Trace)
[2022-03-18 17:55] LABS: Bacteria Urine None Seen (None Seen); Hyaline Casts Urine 0-2 /LPF (0-2); RBC Urine 0-2 /HPF (0-2); Squamous Epithelial Cell Urine 0-2 /HPF (0-2); WBC Urine 0-5 /HPF (0-5)
[2022-03-18 18:30] LABS: Erythrocyte Sedimentation Rate 6 MM/HR (0-20)
== END 2022-03-18 17:10 | disposition home or self-care (01) ==
LOC: HO.LAB 17:09
PROVIDERS: PCP Internal Medicine; Visit Provider Internal Medicine
DX: R10.32 Left lower quadrant pain (principal)
CPT/HCPCS: 36415; 81001; 85025; 85652

== ENCOUNTER 2022-03-25 07:17 | Outpatient (REF) | payer OTHER, SELFPAY ==
[2022-03-25 07:26] LABS: MANUAL DIFF FLAG NO
[2022-03-25 07:48] LABS: Basophils Percent Auto 0.5 % (0-2); Eosinophils Absolute Auto 0.1 X10*3/uL (0.0-0.4); Eosinophils Percent Auto 1.7 % (0-4); Hematocrit 39.5 % (37.0-47.0); Hemoglobin 13.6 g/dl (12.0-16.0); Imm Gran Abs Auto 0.02 X10*3/uL (0.00-0.03); Imm Gran Pct Auto 0.3 % (0.0-0.4); Lymphocytes Absolute Auto 1.7 X10*3/uL (1.2-4.9); Lymphocytes Percent Auto 26.1 % (20-40); Mean Corpuscular HGB Conc 34.4 g/dl (31.0-35.0); Mean Corpuscular Hemoglobin 33.1 pg (27.0-33.0); Mean Corpuscular Volume 96.1 fL (80.0-98.0); Mean Platelet Volume 9.7 fL (9.4-12.3); Monocytes Absolute Auto 0.6 X10*3/uL (0.1-1.2); Monocytes Percent Auto 9.9 % (2-11); Neutrophils Percent Auto 61.5 % (45-73); Platelet Count 313 X10*3/uL (160-400); Red Blood Count 4.11 X10*6/uL (4.20-5.50); Red Cell Distribution Width 11.7 % (11.0-16.0); White Blood Count 6.4 X10*3/uL (4.8-10.8)
[2022-03-25 08:19] LABS: Free T4 (Free Thyroxine) 1.51 ng/dL (0.71-1.85); Insulin 4 uU/mL (2-29); Vitamin D 25-OH Total 29.3 ng/mL (>30)
[2022-03-25 08:59] LABS: Gamma Glutamyl Transpeptidase 11 U/L (7-33)
[2022-03-25 09:09] LABS: Alanine Aminotransferase 15 U/L (0-31); Albumin Level 4.2 g/dL (3.5-5.0); Alkaline Phosphatase 58 U/L (39-117); Anion Gap 16 (12-20); Aspartate Amino Transferase 18 U/L (5-31); Bilirubin Total 0.9 mg/dL (0.0-1.0); Blood Urea Nitrogen 20 mg/dL (9-16); C Reactive Protein 0.03 mg/dL (< or = 0.50); Calcium 9.3 mg/dL (8.4-10.2); Carbon Dioxide 21 mmol/L (22-29); Chloride 105 mmol/L (96-108); Cholesterol 194 mg/dL; Estimated Glomerular Filt Rate > 60; Glucose Random 92 mg/dL (60-115); HDL Cholesterol 56 mg/dL; LDL Cholesterol Calculated 129 mg/dl; Sodium 138 mmol/L (135-145); Total Protein 7.1 g/dL (6.5-8.0); Triglycerides 48 mg/dL
[2022-03-27 05:52] LABS: DHEA Sulfate 161 mcg/dL (15-205); Follicle Stimulating Hormone 18.3 mIU/mL; Lutenizing Hormone 70.6 mIU/mL; Triiodothyronine T3 Free 3.7 pg/mL (2.3-4.2)
[2022-03-27 11:12] LABS: Thyroglobulin Antibodies <1 IU/mL (< or = 1); Thyroid Peroxidase Antibodies 2 IU/mL (<9)
[2022-03-27 12:37] LABS: Calcium (PTHI) 9.4 mg/dL (8.6-10.2); PTHI 36 pg/mL (16-77)
[2022-03-27 15:42] LABS: Venous Lead <1.0 mcg/dL (<3.5)
[2022-03-28 17:07] LABS: Mercury, Blood <4 mcg/L (<=10)
[2022-03-29 21:36] LABS: Estradiol Ultra Sensitive 253 pg/mL
[2022-03-30 11:52] LABS: Progesterone 0.7 ng/mL
[2022-03-30 13:21] LABS: Triiodothyronine T3 Reverse 15 ng/dL (8-25)
[2022-03-30 20:47] LABS: Testosterone, Free 3.5 pg/mL (0.1-6.4); Testosterone, Total 41 ng/dL (2-45)
[2022-03-31 02:02] LABS: Dihydrotestosterone 19 ng/dL (< OR = 20)
== END 2022-03-25 07:18 | disposition home or self-care (01) ==
LOC: HO.LAB 07:17
PROVIDERS: PCP Internal Medicine; Visit Provider Internal Medicine
DX: E03.9 Hypothyroidism, unspecified (principal); F32.81 Premenstrual dysphoric disorder; E11.9 Type 2 diabetes mellitus without complications; E55.9 Vitamin D deficiency, unspecified; D64.9 Anemia, unspecified; E28.2 Polycystic ovarian syndrome; E78.5 Hyperlipidemia, unspecified; K76.0 Fatty (change of) liver, not elsewhere classified; R53.83 Other fatigue
CPT/HCPCS: 36415; 80053; 80061; 82306; 82627; 82642; 82670; 82977; 83001; 83002; 83090; 83525; 83655; 83825; 83970; 84144; 84402; 84403; 84439; 84443; 84481; 84482; 85025; 86140; 86376; 86800

== ENCOUNTER 2022-07-11 16:30 | Outpatient (REF) | payer OTHER, SELFPAY ==
--- NOTE | ~2022-07-11 | US_ITS ---
EXAMINATION: US RETROPERITONEAL LIMITED (RENAL ONLY) CLINICAL INFORMATION: Calculus of kidney. COMPARISON: Renal ultrasound 09/04/2021 and 05/04/2020. X-ray abdomen KUB 04/08/2017. CT abdomen and pelvis 01/11/2015. TECHNIQUE: Real-time imaging of the kidneys. FINDINGS: RIGHT KIDNEY: 11.4 x 3.6 x 4.5 cm (SAG x AP x TRV). The kidney is normal in size, contour, and echogenicity. Renal cortical thickness is normal. No hydronephrosis. Echogenic structures likely nonobstructing stones largest 3 x 2 x 4 mm LEFT KIDNEY: 11.3 x 6.1 x 4.8 cm (SAG x AP x TRV). The kidney is normal in size, contour, and echogenicity. Renal cortical thickness is normal. No focal parenchymal lesions or hydronephrosis. Multiple nonobstructing stones largest lower pole 3 x 3 x 3 mm. US/US renal BI IMPRESSION: * Redemonstration of Bilateral nonobstructing kidney stones. * No ultrasound evidence of renal obstruction or hydronephrosis.
== END 2022-07-11 16:31 | disposition home or self-care (01) ==
LOC: HO.US 16:30
PROVIDERS: PCP Internal Medicine; Visit Provider Urology
DX: N20.0 Calculus of kidney (principal)
CPT/HCPCS: 76775

== ENCOUNTER 2022-08-12 12:31 | Outpatient (REF) | payer OTHER, SELFPAY ==
--- NOTE | ~2022-08-12 | MM_ITS ---
EXAMINATION: MM SCREENING DIGITAL BREAST TOMOSYNTHESIS, BILATERAL CLINICAL INFORMATION: Screening. Asymptomatic. The lifetime risk of breast cancer based on the Tyrer-Cuzick Model is 13%. COMPARISON: Mammography: 07/26/2021 (baseline) TECHNIQUE: Digital mammography is performed in craniocaudal and mediolateral oblique views along with computer-aided detection (CAD). Digital breast tomosynthesis is performed in implant-displaced craniocaudal and implant-displaced mediolateral oblique views along with computer-aided detection (CAD). Synthesized 2D images are generated from the tomosynthesis. FINDINGS: There are scattered areas of fibroglandular density (ACR BI-RADS breast composition Category b). There are no significant masses, abnormal calcifications, or other abnormalities. No architectural abnormality or developing density or significant change from prior baseline exam. The implant contours are smooth and similar to the baseline study. The axilla are unremarkable. No significant changes. MM/MM tomosynthesis screen imp BI IMPRESSION: No mammographic evidence of malignancy. ASSESSMENT: BI-RADS 1: Negative RECOMMENDATION: Routine annual mammography screening. This patient's information was entered into a reminder system with a target due date for their next mammogram.
== END 2022-08-12 12:32 | disposition home or self-care (01) ==
LOC: HO.MAMMO 12:31
PROVIDERS: PCP Internal Medicine; Visit Provider Advanced Practice Midwife
DX: Z12.31 Encounter for screening mammogram for malignant neoplasm of breast (principal)
CPT/HCPCS: 77063; 77067

== ENCOUNTER → 2022-08-14 09:44 | Outpatient (BNVA) | payer OTHER, SELFPAY | PROVIDERS: PCP Internal Medicine; Visit Provider Nurse Practitioner Family | DX: N20.0 Calculus of kidney (principal); N39.0 Urinary tract infection, site not specified | CPT/HCPCS: 51798 ==

== ENCOUNTER 2022-11-19 08:33 | Outpatient (REF) | payer OTHER, SELFPAY ==
[2022-11-19 08:52] LABS: MANUAL DIFF FLAG NO
[2022-11-19 10:00] LABS: Basophils Percent Auto 0.6 % (0-2); Eosinophils Absolute Auto 0.2 X10*3/uL (0.0-0.4); Eosinophils Percent Auto 3.1 % (0-4); Hemoglobin 12.1 g/dl (12.0-16.0); Imm Gran Abs Auto 0.02 X10*3/uL (0.00-0.03); Imm Gran Pct Auto 0.4 % (0.0-0.4); Lymphocytes Absolute Auto 1.7 X10*3/uL (1.2-4.9); Lymphocytes Percent Auto 35.7 % (20-40); Mean Corpuscular HGB Conc 33.6 g/dl (31.0-35.0); Mean Corpuscular Hemoglobin 33.2 pg (27.0-33.0); Mean Corpuscular Volume 98.6 fL (80.0-98.0); Mean Platelet Volume 10.5 fL (9.4-12.3); Monocytes Absolute Auto 0.6 X10*3/uL (0.1-1.2); Neutrophils Absolute Auto 2.3 x10*3/uL (2.0-8.3); Neutrophils Percent Auto 48.2 % (45-73); Platelet Count 265 X10*3/uL (160-400); Red Blood Count 3.65 X10*6/uL (4.20-5.50); Red Cell Distribution Width 11.9 % (11.0-16.0); White Blood Count 4.9 X10*3/uL (4.8-10.8)
[2022-11-19 10:22] LABS: Appearance Urine Clear; Color Urine Yellow; Glucose Urine UA Negative (Negative); Leukocyte Esterase Urine Small (1+) (Negative); Nitrite Urine Negative (Negative); PH 6.5 (5.0-9.0); UMIC TRIGGER UACC YES; Urine Blood Large (3+) (Negative); Urine Ketones Negative (Negative); Urine Protein Negative (Neg-Trace)
[2022-11-19 10:36] LABS: Bacteria Urine Trace (None Seen); Hyaline Casts Urine 0-2 /LPF (0-2); RBC Urine 0-2 /HPF (0-2); UACC Culture Trigger YES
[2022-11-19 10:42] LABS: Alanine Aminotransferase 65 U/L (0-31); Albumin Level 3.9 g/dL (3.5-5.0); Alkaline Phosphatase 57 U/L (39-117); Anion Gap 11 (12-20); Aspartate Amino Transferase 26 U/L (5-31); Bilirubin Total 1.1 mg/dL (0.0-1.0); Blood Urea Nitrogen 17 mg/dL (9-16); Calcium 9.3 mg/dL (8.4-10.2); Carbon Dioxide 26 mmol/L (22-29); Chloride 107 mmol/L (96-108); Cholesterol 189 mg/dL; Estimated Glomerular Filt Rate > 60; Glucose Fasting 90 mg/dL (60-99); HDL Cholesterol 63 mg/dL; LDL Cholesterol Calculated 116 mg/dl; Potassium 4.5 mmol/L (3.3-5.1); Sodium 139 mmol/L (135-145); Total Protein 6.6 g/dL (6.5-8.0); Triglycerides 50 mg/dL
[2022-11-19 11:12] LABS: Folate 11.3 ng/mL (> or = 4.0); TSH reflex Free T4 1.87 uIU/mL (0.32-4.0); Vitamin B12 862 pg/mL (200-900); Vitamin D 25-OH Total 31.9 ng/mL (>30)
== END 2022-11-19 08:34 | disposition home or self-care (01) ==
LOC: HO.LAB 08:33
PROVIDERS: PCP Internal Medicine; Visit Provider Internal Medicine
DX: Z00.00 Encounter for general adult medical examination without abnormal findings (principal); I10 Essential (primary) hypertension; E78.00 Pure hypercholesterolemia, unspecified; E55.9 Vitamin D deficiency, unspecified; E53.8 Deficiency of other specified B group vitamins; R82.90 Unspecified abnormal findings in urine
CPT/HCPCS: 36415; 80053; 80061; 81001; 81003; 82306; 82607; 82746; 84443; 85025; 87086

== ENCOUNTER 2023-09-15 12:39 | Outpatient (REF) | payer OTHER, SELFPAY ==
[2023-09-15 13:55] LABS: MANUAL DIFF FLAG NO
[2023-09-15 14:08] LABS: Basophils Percent Auto 0.3 % (0-2); Eosinophils Absolute Auto 0.1 X10*3/uL (0.0-0.4); Eosinophils Percent Auto 0.6 % (0-4); Hematocrit 36.7 % (37.0-47.0); Hemoglobin 12.5 g/dl (12.0-16.0); Imm Gran Abs Auto 0.02 X10*3/uL (0.00-0.03); Imm Gran Pct Auto 0.2 % (0.0-0.4); Lymphocytes Absolute Auto 2.4 X10*3/uL (1.2-4.9); Lymphocytes Percent Auto 22.8 % (20-40); Mean Corpuscular HGB Conc 34.1 g/dl (31.0-35.0); Mean Corpuscular Hemoglobin 33.2 pg (27.0-33.0); Mean Corpuscular Volume 97.6 fL (80.0-98.0); Mean Platelet Volume 10.2 fL (9.4-12.3); Monocytes Percent Auto 9.3 % (2-11); Neutrophils Absolute Auto 7.1 x10*3/uL (2.0-8.3); Neutrophils Percent Auto 66.8 % (45-73); Platelet Count 302 X10*3/uL (160-400); Red Blood Count 3.76 X10*6/uL (4.20-5.50); Red Cell Distribution Width 12.2 % (11.0-16.0); White Blood Count 10.7 X10*3/uL (4.8-10.8)
[2023-09-15 14:44] LABS: Alanine Aminotransferase 12 U/L (0-31); Albumin Level 3.7 g/dL (3.5-5.0); Alkaline Phosphatase 51 U/L (39-117); Anion Gap 11 (12-20); Aspartate Amino Transferase 12 U/L (5-31); Bilirubin Total 0.4 mg/dL (0.0-1.0); Blood Urea Nitrogen 16 mg/dL (9-16); Calcium 8.8 mg/dL (8.4-10.2); Carbon Dioxide 24 mmol/L (22-29); Chloride 107 mmol/L (96-108); Estimated Glomerular Filt Rate > 60; Glucose Random 99 mg/dL (60-115); Potassium 3.4 mmol/L (3.3-5.1); Sodium 139 mmol/L (135-145); Total Protein 6.7 g/dL (6.5-8.0)
== END 2023-09-15 12:40 | disposition home or self-care (01) ==
LOC: HO.10HDL 12:39
PROVIDERS: Visit Provider Nurse Practitioner
DX: L23.89 Allergic contact dermatitis due to other agents (principal)
CPT/HCPCS: 36415; 80053; 85025

== ENCOUNTER 2023-09-16 09:20 | Outpatient (AMB) | payer OTHER, SELFPAY ==
--- NOTE | 2023-09-16 09:21 | A.OFFPC_ITS ---
Vital Signs 09/16/23 09:23 Height 5 ft 1 in Weight 132 lb 8 oz BMI 25.0 BP 120/64 Blood Pressure Location Lt brachial Position Sitting Pulse 88 Pulse Source Pulse Oximeter Pulse Oximetry (%) 98 Oxygen Delivery Method Room Air Intake Visit Reasons: ? allergy ? hives Intake Note: Patient is here today to follow up on hives on left side of her rib area, on going for two week. No changes to food, lotion, soap, medication. Sonar Watchstander Required: No It Consulting Director: Not Required per policy Accompanied by: Self / Same As Patient Allergies No Known Allergies Allergy (Verified 10/13/23 03:15) Medication List - Last Reconciled 10/13/23 by Juanpablo Javier MD bupropion HCl XL (Wellbutrin XL) 300 mg PO QAM etanercept (Enbrel Mini) 50 mg subcut QWEEK fexofenadine 180 mg PO DAILY PRN Tobacco use date assessed: 09/16/23 Dental Screening Dental Screen Date: 09/16/23 Did you have a dental visit in the last 12 months?: Yes Did you have a dental problem in the last 6 months where you did not have access to dental care?: No Was dental information given to patient?: Patient has dentist HPI ? allergy ? hives HPI Details Patient comes in today for further evaluation States that she has been breaking out repeatedly in hives all over for more than a week now She went to an urgent care center this past Friday (3 days ago) for the same complaints and was started on oral Prednisone, which she is still currently on, and notes that her rash have been subsiding gradually States that she used to go to [facility] for allergy treatments but have not been back to see them in several years and will need a new referral to go back there again She denies any recent travel and states that she has not eaten or drank anything out of the ordinary lately She denies any fever or sore throat but relates that she's had a recurrent non- productive cough for the past couple of weeks Denies any chest pains, no SOB No nausea/vomiting but relates that she still has on and off left lower abdominal pain No change in bowel habits noted but she still sees (+) blood in her stools at times States that she had some labs done at [facility] yesterday that were ordered by the practitioner at the urgent care center that she was seen by recently and would like to know how they came out [facility] Medical History Ankylosing spondylitis Benign essential hypertension Echocardiogram abnormal (~12/2009) GERD without esophagitis History of kidney stones Labile hypertension Tachycardia Vitamin D deficiency Surgical History History of augmentation of both breasts History of esophagogastroduodenoscopy (EGD) History of cystoscopy History of arthroscopy of left knee History of section Family History Father Hypercholesteremia Hypertension Mother Hypercholesteremia Hypertension Diabetes Maternal Grandmother History of breast cancer Social History Housing: House Alcohol intake: never Patient Tobacco Use Status: Never used Tobacco e-Cigarette/Vaping Use: Never Used Second Hand Smoke Exposure: No service: No Current occupational status: employed Current occupational exposures/hazards: No Cognitive needs: No Hearing needs: No Vision needs: Yes Questionnaire PHQ-9 Over the last 2 weeks, how often have you been bothered by any of the following problems? 1. Little interest or pleasure in doing things: more than half the days 2. Feeling down, depressed, or hopeless: several days 3. Trouble falling or staying asleep, or sleeping too much: more than half the days 4. Feeling tired or having little energy: more than half the days 5. Poor appetite or overeating: several days 6. Feeling bad about yourself - or that you are a failure or have let yourself or your family down: not at all 7. Trouble concentrating on things, such as reading the newspaper or watching television: several days 8. Moving or speaking so slowly that other people could have noticed. Or the opposite - being so fidgety or restless that you have been moving around a lot more than usual: more than half the days 9. Thoughts that you would be better off or of hurting yourself in some way: not at all Total score: 11 Depression Screening Interpretation: Positive Depression Screening Follow-up: Existing condition and In treatment Depression Screening Done: Yes 13350 - PHQ-9 Billing: Yes Source: Developed by Drs. Pierce Clemente, Ciara Khalil, Maikel Zimmer and colleagues, with an educational joseline from [employer]. Thrive Questionnaire Date Thrive assessed: 09/16/23 I am a: Patient What is your living situation today?: I have a steady place to live Within the past 12 months, did the food you bought not last and you didn't have the money to get more?: Never true Within the past 12 months, did you worry whether your food would run out before you got money to buy more?: Never true Do you have trouble paying for medicines?: No Do you have trouble getting transportation to medical appointments?: No Do you have trouble paying your heating and electricity bill?: No Do you have trouble taking care of your child, family member or friend?: No Do you have trouble with day-to-day activities such as bathing, preparing meals, shopping, managing finances, etc.?: No Are you currently unemployed and looking for a job?: No Are you interested in more education?: No Currently or been in a relationship where the following occur: no concerns reported THRIVE Score: 0 AUDIT C Alcohol Use Questionnaire (AUDIT-C) 1. How often do you have a drink containing alcohol?: Monthly or less 2. How many drinks containing alcohol do you have on a typical day when you are drinking?: 1 or 2 3. How often do you have six or more drinks on one occasion?: Never Total Score: 1 Score Reviewed/Action Taken: Yes KEYA-7 AMB Questionnaire KEYA-7 Date KEYA - 7 assessed: 09/16/23 Feeling nervous, anxious, or on edge: 0 = Not at all Not being able to stop or control worryin = Not at all Worrying too much about different things: 0 = Not at all Trouble relaxin = Not at all Being so restless that it is hard to sit still: 0 = Not at all Becoming easily annoyed or irritable: 0 = Not at all Feeling afraid as if something awful might happen: 0 = Not at all Total KEYA-7 score (0-4 normal; 5-9 mild; 10-14 moderate; 15-21 severe): 0 Source: Developed by Ciara Rodríguez. Remi, Maikel Zimmer and colleagues, with an educational joseline from [employer]. Review of Systems Const Denies chills, Denies fatigue, Denies fever(s) and Denies headache(s) ENT Denies dysphagia, Denies dizziness, Denies otalgia, Denies headache(s) and Denies sore throat Card Denies chest pain, Denies palpitations and Denies dyspnea Resp Denies chest congestion, Reports cough (on and off, non-productive), Denies hemoptysis and Denies dyspnea GI Reports abdominal pain (over the left lower quadrant), Reports hematochezia (at times), Denies constipation, Denies dysphagia, Denies heartburn, Denies diarrhea, Denies nausea and Denies vomiting Denies difficulty voiding, Denies nocturia, Denies dysuria and Denies urinary urgency Musc Reports back pain (lower back) and Reports arthralgias Skin/Breast Reports rash (scattered erythematous urticarial rash/lesions) Neuro Denies dizziness and Denies headache(s) Endo Denies fatigue and Denies palpitations Physical exam (Primary Care) Vital Signs: Last Vital Signs Pulse 88 09/16/23 09:23 BP 120/64 09/16/23 09:23 Pulse Ox 98 09/16/23 09:23 Oxygen Delivery Method Room Air 09/16/23 09:23 BMI result Body Mass Index 25.0 Tobacco/Smoking Status: Tobacco use Status Tobacco use date assessed 09/16/23 09/16/23 09:31 Patient Tobacco Use Status Never used Tobacco 09/16/23 09:31 e-Cigarette/Vaping Use Never Used 09/16/23 09:31 PHQ-9: PHQ-9 Score PHQ-9: Total score 11 09/16/23 09:59 Depression Screening Interpretation: Positive Depression Screening Follow-up: Existing condition and In treatment Thrive Assessment: Date of Thrive Assessment Date Thrive assessed 09/16/23 09/16/23 09:31 Currently or been in a relationship where the following occur: no concerns reported Const General: no acute distress and alert HENMT Ears: TM's normal bilaterally and EAC's normal Throat: Yes posterior oropharynx normal and Yes tonsils normal Neck Neck: Yes no lymphadenopathy and Yes supple Thyroid: Thyroid normal Resp Auscultation: clear to auscultation bilaterally, no rales and no wheezes Cardio Rate: regular rate Rhythm: regular rhythm Heart sounds: no murmurs GI Palpation (GI): Soft to palpation, Tenderness to palpation present (GI) (mild) in the LLQ, no guarding, not rigid and No Rebound tenderness present Auscultation: normal bowel sounds General: Yes no CVA tenderness Back/Spine/Pelvis Back: no CVA tenderness Thoracic/Lumbar Spine: lumbar spinal tenderness Skin Other: (+) scattered erythematous urticarial lesions, especially over her back Extrem General: Yes no clubbing, cyanosis or edema Results Reviewed Results Reviewed: Laboratory Tests 09/15/23 12:50 WBC 10.7 Hgb 12.5 Hct 36.7 L Plt Count 302 Sodium 139 Potassium 3.4 Creatinine 0.73 Estimated GFR > 60 Random Glucose 99 Calcium 8.8 AST 12 ALT 12 Assessment and Plan Assessment & Plan (1) Urticaria: Code(s): L50.9 - Urticaria, unspecified Plan: Results of her labs done yesterday reviewed and discussed with patient Will send her for some additional labs ADOLFO for further evaluation Continue oral Prednisone taper for now Per request, will refer her back to [facility] for allergy evaluation and management/treatment (2) Blood in stool: Code(s): K92.1 - Melena Plan: Will refer her to GI for further evaluation and management of her on and off (+) blood in her stool (3) Ankylosing spondylitis: Code(s): M45.9 - Ankylosing spondylitis of unspecified sites in spine Qualifiers: Ankylosing spondylitis location: unspecified site of spine Qualified Code(s): M45.9 - Ankylosing spondylitis of unspecified sites in spine Plan: Continue Enbrel 50 mg once a week Follow up with rheumatology (Dr. [facility] at [facility]) as scheduled (4) Recurrent cough: Code(s): R05.8 - Other specified cough Plan: Will send patient for chest x-rays for further evaluation (5) Benign essential hypertension: Code(s): I10 - Essential (primary) hypertension Plan: Reinforced low sodium diet - goal is systolic BP of at 120 mm or less Was on Amlodipine 5 mg QD and HCTZ 12.5 mg QD in the past but patient stopped taking her Rx last year when they ran out a few months ago and she could not get them refilled at the pharmacy Her blood pressure appears to be doing well since and we have held off on starting her back on her BP meds Have reminded patient to continue monitoring her blood pressure regularly (6) Nephrolithiasis: Code(s): N20.0 - Calculus of kidney Plan: Renal US last done in June 2022 still showed (+) non-obstructing renal stones bilaterally Follow up with urology as scheduled for continuing management (7) Allergic rhinitis: Code(s): J30.9 - Allergic rhinitis, unspecified Qualifiers: Allergic rhinitis trigger: unspecified Allergic rhinitis seasonality: unspecified Qualified Code(s): J30.9 - Allergic rhinitis, unspecified Plan: Continue Fexofenadine 180 mg QD PRN (8) Mood disorder: Code(s): F39 - Unspecified mood [affective] disorder Plan: Continue Wellbutrin XL 300 mg QAM Plan Follow up as scheduled in December 2023 Orders: Orders Erythrocyte Sedimentation Rate 09/16/23 L50.9 - Urticaria, unspecified IgE Antibody (Anti-IgE IgG) 09/16/23 L50.9 - Urticaria, unspecified XR chest 2V 09/16/23 R05.9 - Cough, unspecified C Reactive Protein 09/16/23 L50.9 - Urticaria, unspecified TSH reflex Free T4 09/16/23 L50.9 - Urticaria, unspecified Referrals Allergy & Immunology Referral L50.9 - Urticaria, unspecified Gastroenterology Referral K92.1 - Melena Coding Level of Care Code Est Pt Level 4 (29425) Diagnoses Urticaria L50.9 Blood in stool K92.1 Ankylosing spondylitis, unspecified site of spine M45.9 Ankylosing spondylitis location: unspecified site of spine Recurrent cough R05.8 Benign essential hypertension I10 Nephrolithiasis N20.0 Allergic rhinitis, unspecified seasonality, unspecified trigger J30.9 Allergic rhinitis trigger: unspecified Allergic rhinitis seasonality: unspecified Mood disorder F39
[2023-09-16 09:23] VITALS: BP 120/64; PULSE 88; O2SAT 98; BMI 25.0
== END 2023-09-16 10:03 | disposition home or self-care (01) ==
PROVIDERS: PCP Internal Medicine; Visit Provider Internal Medicine
DX: L50.9 Urticaria, unspecified (principal); M45.9 Ankylosing spondylitis of unspecified sites in spine; F39 Unspecified mood [affective] disorder; K92.1 Melena; R05.8 Other specified cough; I10 Essential (primary) hypertension; N20.0 Calculus of kidney; J30.9 Allergic rhinitis, unspecified
CPT/HCPCS: 99214

== ENCOUNTER 2023-09-16 10:12 | Outpatient (REF) | payer OTHER, SELFPAY ==
--- NOTE | ~2023-09-16 | XR_ITS ---
EXAMINATION: XR CHEST CLINICAL INFORMATION: Cough unspecified. COMPARISON: Chest radiograph of 04/17/2008. TECHNIQUE: 2 views of the chest were obtained. FINDINGS: Levoscoliosis of the lumbar spine. There is no gross pneumothorax. Heart size is normal. Mild degenerative changes in the thoracic spine. No gross pleural effusion. Slight hazy opacity in the lower right lung may represent an inflammatory/infectious process and/or atelectasis. XR/XR chest 2V IMPRESSION: Slight hazy opacity in the lower right lung may represent an inflammatory/infectious process and/or atelectasis. Recommend follow-up imaging in 4-6 weeks to confirm resolution and exclude underlying pathology. Report provided as requested to the referring clinician at the time of interpretation.
[2023-09-16 13:19] LABS: TSH reflex Free T4 1.87 uIU/mL (0.32-4.0)
[2023-09-16 13:23] LABS: C Reactive Protein < 0.04 mg/dL (< or = 0.50)
[2023-09-16 13:31] LABS: Erythrocyte Sedimentation Rate 7 MM/HR (0-20)
[2023-09-24 16:08] LABS: IgE Antibody (Anti-IgE IgG) 44 ng/mL (<168)
== END 2023-09-16 10:13 | disposition home or self-care (01) ==
LOC: HO.LAB 10:12
PROVIDERS: PCP Internal Medicine; Visit Provider Internal Medicine
DX: R05.9 Cough, unspecified (principal); L50.9 Urticaria, unspecified
CPT/HCPCS: 36415; 71046; 83520; 84443; 85652; 86140

== ENCOUNTER 2023-12-04 07:53 | Outpatient (AMB) | payer OTHER, SELFPAY ==
--- NOTE | 2023-12-04 07:56 | MHC.OFFVIS ---
Vital Signs 12/04/23 07:57 Height 5 ft 1 in Weight 132 lb 11.492 oz BMI 25.1 BP 117/76 Blood Pressure Location Lt brachial Position Sitting Pulse 70 Intake Visit Reasons: Recurrent blood in stool Intake Note: Erendira presents in the office as a new patient for recurrent blood in the stool. CC: She states that this has been a recurrent problem for years. 2 years ago she was in the ED because there was nothing but blood coming out. She was told she has a small hemorrhoid but it has not bothered her. She states that she does not suffer from diarrhea but when she has to have a BM she will have the urge to go instantly - she will sometimes need to dross puller. A year ago she was told it was a colitis flare up. She was given an antibiotic which stopped the bleeding but gave her diarrhea. Certified Midwife Required: No Allergies cat dander Allergy (Mild, Verified 12/04/23 08:00) Unknown dog dander Allergy (Mild, Verified 12/04/23 08:00) Unknown Seasonal Allergies Allergy (Mild, Verified 12/04/23 08:00) Unknown HPI HPI Recurrent blood in stool: Details: 43-year-old female here for initial evaluation of rectal bleeding . She is referred by Juanpablo Javier of [facility] primary care. 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 Visualized Chest: Lung bases are clear. No pleural effusion. The heart is normal in size. No pericardial effusion. Diaphragm: Normal. Liver: Normal. Gallbladder: No CT evidence of gallbladder pathology. Bile ducts: No biliary ductal dilation. Spleen: Normal. Pancreas: Normal. Adrenal glands: Mild thickening of the left adrenal gland. Kidneys and ureters: There is a 1.9 cm renal cyst in the lower pole of the right kidney. No follow-up acquired. There is also a nonobstructing renal calculus in the right kidney. No hydronephrosis or suspicious masses. Bladder: Normal. Stomach, small bowel, and large bowel: There appears to be relatively diffuse wall thickening of the left colon suggesting relatively focal colitis. Appendix: Normal. Peritoneum, omentum, and mesentery: No ascites or pneumoperitoneum. No omental or mesenteric lesions. Lymph nodes: No enlarged lymph nodes. Blood vessels: Normal. No aneurysm. No evidence of venous thrombosis. Abdominal and pelvic wall: Unremarkable. Reproductive organs: Unremarkable. Bones: No acute abnormality. IMPRESSION: Left colitis. This is likely infectious or inflammatory. I have personally reviewed the images and I agree with this report. WSN: [id number] TODAY'S VISIT She has been seeing large strands of RB in her stools, she was seen at [facility] a few years ago and she was told she has a colitis (she was also vomiting) and she was treated with doxy. This was about 2 years ago. She is also experiencing fecal urgency about once a month. It will be so sudden that she will have to dross puller if she is driving. She had one recent episode of urgent vomiting as well. she was told she a small hemorrhoid when she was , she has never had a colonoscopy. No alarm sx, no FHX of stomach, colon or cancers of the GI sx. She will be seeing an abe teacher and so far no food allergies. She is on Enbrel. She will notice upper abd bloating with eating, and her body feels better when she can't eat. She uses OTC prilosec prn for her stomach. She has agreeable to a colonoscopy to diagnose the bleeding and make sure there is no concerning causes. There are no prior problems with anesthesia or sedation. She denies any cardiac or respiratory problems. There are no infectious disease problems. At this point I think a trial of Creon could be prudent but will also get some stool samples to see if there is any reason to suspect inflammatory bowel disease or exocrine pancreatic insufficiency. ROV 6 weeks. [facility] Medical History COVID-19 BP (high blood pressure) Tachycardia History of kidney stones Labile hypertension Shortness of breath Acute pharyngitis Elevated blood pressure reading Abdominal pain in female Urinary frequency Positive QuantiFERON-TB Gold test Annual physical exam Left lower quadrant abdominal pain Tachycardia Echocardiogram abnormal (~12/2009) GERD without esophagitis Vitamin D deficiency Ankylosing spondylitis Benign essential hypertension Surgical History History of augmentation of both breasts History of esophagogastroduodenoscopy (EGD) History of cystoscopy History of arthroscopy of left knee History of section Family History Father Hypercholesteremia Hypertension Mother Hypercholesteremia Hypertension Diabetes Maternal Grandmother History of breast cancer Social History Housing: House Alcohol intake: never Patient Tobacco Use Status: Never used Tobacco e-Cigarette/Vaping Use: Never Used Second Hand Smoke Exposure: No service: No Current occupational status: employed Current occupational exposures/hazards: No Cognitive needs: No Hearing needs: No Vision needs: Yes Review of Systems Const Denies fatigue, Denies fever(s), Denies night sweats, Denies poor appetite and Denies weight loss ENT Reports Normal hearing present, Denies dental pain, Denies dysphagia, Denies hearing loss, Denies mouth pain, Denies odynophagia, Denies throat swelling, Denies tongue swelling and Reports other (Dentition adequate) Card Reports no additional complaints Resp Reports no additional complaints GI Details: Denies abdominal pain, Denies melena, Reports bloating, Denies hematochezia, Denies constipation, Denies GI cramping, Denies dysphagia, Denies excessive flatus, Denies early satiety, Reports heartburn, Denies diarrhea, Reports loose stools, Reports nausea, Denies odynophagia, Reports vomiting and Denies hematemesis Musc Reports myalgias and Reports arthralgias Skin/Breast Denies pruritus, Denies lesions, Denies rash and Denies jaundice Neuro Reports Normal hearing present and Denies Abnormal speech present Endo Denies fatigue Aller/Immun Denies throat swelling and Denies tongue swelling Physical Exam Vital Signs: Last Vital Signs Pulse 70 12/04/23 07:57 BP 117/76 12/04/23 07:57 BMI result Body Mass Index 25.1 Const General: cooperative, no acute distress, well developed and well groomed Nutritional Appearance: average body habitus and well nourished Orientation/consciousness: oriented to person, oriented to place and oriented to time Limitations: No language barrier HEENT Head: Yes normocephalic and Yes atraumatic Eyes General: appearance normal, both eyes and all related structures Pupils: Equal, round and reactive pupils present Neck Neck: Yes normal visual inspection and Yes no lymphadenopathy Thyroid: Thyroid normal Resp Effort & Inspection: normal respiratory effort and able to speak in complete sentences Auscultation: clear to auscultation bilaterally Cardio Rate: regular rate Rhythm: regular rhythm Heart sounds: Normal, physiologic split S2 sound present Peripheral pulses: radial pulses present and posterior tibial pulses present GI Inspection: No distended and No Abdominal panniculus present Palpation (GI): Soft to palpation, nontender, no guarding, not rigid and No hepatosplenomegaly present Percussion: Yes normal to percussion Auscultation: normal bowel sounds Rectal Exam - Female: deferred Skin General skin exam: no rashes or lesions noted, turgor normal, skin not dry, no jaundice, No spider nevi and no striae Rashes: no rashes Nails: normal Neuro General: oriented to person, oriented to place and oriented to time Cranial nerves: Yes Equal, round and reactive pupils present and Yes Normal hearing present Speech: No Abnormal speech present Extrem General: Yes normal to inspection, No clubbing, No cyanosis and No edema Psych Appearance: grossly normal and well kempt Mental Status: mental status grossly normal Speech and movement: Normal speech and movement present Affect: normal affect Attitude: cooperative Thought process: Normal thought process present and not confabulating Thought content: Normal thought content present Insight: Fair insight present (Psych) and Limited insight present (Psych) Judgement: Fair judgement present (Psych) and Limited judgement present (Psych) Results Reviewed Results Reviewed: Laboratory Tests 09/15/23 09/16/23 12:50 10:43 WBC 10.7 RBC 3.76 L Hgb 12.5 Hct 36.7 L MCV 97.6 MCH 33.2 H Plt Count 302 Estimated GFR > 60 Total Bilirubin 0.4 AST 12 ALT 12 Alkaline Phosphatase [address] abdomen and pelvis 2021 from [facility] FINDINGS: [employer] Con[employer] Operator View Findings, Lines and Tubes: None. Visualized Chest: Lung bases are clear. No pleural effusion. The heart is normal in size. No pericardial effusion. Diaphragm: Normal. Liver: Normal. Gallbladder: No CT evidence of gallbladder pathology. Bile ducts: No biliary ductal dilation. Spleen: Normal. Pancreas: Normal. Adrenal glands: Mild thickening of the left adrenal gland. Kidneys and ureters: There is a 1.9 cm renal cyst in the lower pole of the right kidney. No follow-up acquired. There is also a nonobstructing renal calculus in the right kidney. No hydronephrosis or suspicious masses. Bladder: Normal. Stomach, small bowel, and large bowel: There appears to be relatively diffuse wall thickening of the left colon suggesting relatively focal colitis. Appendix: Normal. Peritoneum, omentum, and mesentery: No ascites or pneumoperitoneum. No omental or mesenteric lesions. Lymph nodes: No enlarged lymph nodes. Blood vessels: Normal. No aneurysm. No evidence of venous thrombosis. Abdominal and pelvic wall: Unremarkable. Reproductive organs: Unremarkable. Bones: No acute abnormality. IMPRESSION: Left colitis. This is likely infectious or inflammatory. I have personally reviewed the images and I agree with this report. WSN: [id number] Assessment & Plan Assessment & Plan (1) Hematochezia: Code(s): K92.1 - Melena Category: Medical (2) Pre-op examination: Code(s): Z01.818 - Encounter for other preprocedural examination Category: Medical (3) Fecal urgency: Code(s): R15.2 - Fecal urgency Category: Medical Plan She has been seeing large strands of RB in her stools, she was seen at [facility] a few years ago and she was told she has a colitis (she was also vomiting) and she was treated with doxy. This was about 2 years ago. She is also experiencing fecal urgency about once a month. It will be so sudden that she will have to dross puller if she is driving. She had one recent episode of urgent vomiting as well. she was told she a small hemorrhoid when she was , she has never had a colonoscopy. No alarm sx, no FHX of stomach, colon or cancers of the GI sx. She will be seeing an abe teacher and so far no food allergies. She is on Enbrel. She will notice upper abd bloating with eating, and her body feels better when she can't eat. She uses OTC prilosec prn for her stomach. She has agreeable to a colonoscopy to diagnose the bleeding and make sure there is no concerning causes. There are no prior problems with anesthesia or sedation. She denies any cardiac or respiratory problems. There are no infectious disease problems. At this point I think a trial of Creon could be prudent but will also get some stool samples to see if there is any reason to suspect inflammatory bowel disease or exocrine pancreatic insufficiency. ROV 6 weeks. Orders: Orders Pancreatic Elastase-1 Today K92.1 - Melena, R15.2 - Fecal urgency Colonoscopy - GI Use Only Today K92.1 - Melena, Z01.818 - Encounter for other preprocedural examination H Pylori Breath Test Today K92.1 - Melena, R15.2 - Fecal urgency Calprotectin, Fecal Today K92.1 - Melena, R15.2 - Fecal urgency C Reactive Protein Today K92.1 - Melena, R15.2 - Fecal urgency Medications: New sodium,potassium,mag sulfates 17.5-3.13-1.6 gram (Suprep Bowel Prep Kit) 480 mL orally; FOR COLONOSCOPY PREP 354 mL 0RF doyddb-dzignolz-yetnbiy 24,000-76,000 -120,000 unit (Creon) 2 caps PO BID 120 caps 3RF 30 days K58.9 - Irritable bowel syndrome without diarrhea Coding Level of Care Code New Pt Level 3 (92036) Diagnoses Hematochezia K92.1 Pre-op examination Z01.818 Fecal urgency R15.2
[2023-12-04 07:57] VITALS: BP 117/76; PULSE 70; BMI 25.1
== END 2023-12-04 08:58 | disposition home or self-care (01) ==
PROVIDERS: PCP Internal Medicine; Referring Provider Internal Medicine; Visit Provider Nurse Practitioner
DX: K92.1 Melena (principal); Z01.818 Encounter for other preprocedural examination; R15.2 Fecal urgency
CPT/HCPCS: 99203

== ENCOUNTER 2023-12-04 07:53 | Outpatient (REF) | payer OTHER, SELFPAY ==
[2023-12-04 11:24] LABS: C Reactive Protein < 0.04 mg/dL (< or = 0.50)
== END 2023-12-04 07:54 | disposition home or self-care (01) ==
LOC: HO.LAB 07:53
PROVIDERS: PCP Internal Medicine; Referring Provider Internal Medicine; Visit Provider Nurse Practitioner
DX: K92.1 Melena (principal); R15.2 Fecal urgency
CPT/HCPCS: 36415; 86140

== ENCOUNTER 2023-12-06 11:09 | Outpatient (REF) | payer OTHER, SELFPAY ==
[2023-12-13 10:59] LABS: Calprotectin, Fecal 84 mcg/g
[2023-12-15 20:33] LABS: Pancreatic Elastase-1 >500 mcg/g
== END 2023-12-06 11:10 | disposition home or self-care (01) ==
LOC: HO.LNP 11:09
PROVIDERS: Visit Provider Nurse Practitioner
DX: K92.1 Melena (principal); R15.2 Fecal urgency
CPT/HCPCS: 82656; 83993

== ENCOUNTER 2023-12-13 08:17 | Outpatient (REF) | payer OTHER, SELFPAY ==
--- NOTE | ~2023-12-13 | XR_ITS ---
EXAMINATION: XR ANKLE, LEFT CLINICAL INFORMATION: Trauma COMPARISON: Previous x-ray December 2019 TECHNIQUE: AP, lateral, and mortise views of the left ankle. FINDINGS: There is a nondisplaced fracture of the lateral malleolus. No other fracture seen. The ankle mortise is normal. There is lateral soft tissue swelling. XR/XR ankle LT min 3V IMPRESSION: Nondisplaced fracture of the left lateral malleolus. Findings will be communicated by the [employer] workflow talent acquisition partner.
== END 2023-12-13 08:18 | disposition home or self-care (01) ==
LOC: HO.XRAY 08:17
PROVIDERS: PCP Internal Medicine; Visit Provider Internal Medicine
DX: M25.572 Pain in left ankle and joints of left foot (principal)
CPT/HCPCS: 73610

== ENCOUNTER 2023-12-30 11:07 | Outpatient (REF) | payer OTHER, SELFPAY ==
--- NOTE | ~2023-12-30 | XR_ITS ---
EXAMINATION: XR ANKLE, LEFT CLINICAL INFORMATION: Pain ankle joints of foot. COMPARISON: 12/13/2023. TECHNIQUE: AP, lateral, and mortise views of the left ankle. FINDINGS: Lateral soft tissue swelling. Redemonstration of mildly displaced fracture of the lateral malleolus. Fracture line appears more conspicuous and there is mild displacement of the distal fracture fragment. XR/XR ankle LT min 3V IMPRESSION: Redemonstration of mildly displaced fracture of the lateral malleolus. Fracture line appears more conspicuous and there is mild displacement of the distal fracture fragment.
== END 2023-12-30 11:08 | disposition home or self-care (01) ==
LOC: HO.HOSX 11:07
PROVIDERS: Visit Provider Physician Assistant
DX: M25.571 Pain in right ankle and joints of right foot (principal)
CPT/HCPCS: 73610

== ENCOUNTER 2023-12-30 14:21 | Outpatient (AMB) | payer OTHER, SELFPAY ==
--- NOTE | 2023-12-30 14:26 | MHC.OFFVIS ---
Vital Signs 12/30/23 14:34 Height 5 ft 1 in Weight 132 lb BMI 24.9 Intake Visit Reasons: FC-left ankle fracture Intake Note: Erendira is a 43 year old female who presents today with a walking boot for a evaluation of her left ankle fx, DOI 12/12/23. Patient reports she was getting out of her jeep that is high off the ground and she feel rolling her ankle. Her pain is mainly on the lateral side of the ankle. Currently is having pain on the lateral aspect of her ankle and foot. Denies numbness and tingling in her toes. Allergies cat dander Allergy (Mild, Verified 12/30/23 14:33) Unknown dog dander Allergy (Mild, Verified 12/30/23 14:33) Unknown Seasonal Allergies Allergy (Mild, Verified 12/30/23 14:33) Unknown HPI HPI FC-left ankle fracture: Details: Erendira is a 43 year old female who presents today with a walking boot for a evaluation of her left ankle fx, DOI 12/12/23. Patient reports she was getting out of her jeep that is high off the ground and rolled her ankle. She points to where her pain is mainly located, along the lateral side of the ankle. Currently is having pain on the lateral aspect of her ankle and foot. Denies numbness and tingling in her toes. 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 She reports biking this past weekend with little discomfort but states that she tried to kept her ankle immobilized. [facility] Medical History COVID-19 BP (high blood pressure) Tachycardia History of kidney stones Labile hypertension Shortness of breath Acute pharyngitis Elevated blood pressure reading Abdominal pain in female Urinary frequency Positive QuantiFERON-TB Gold test Annual physical exam Left lower quadrant abdominal pain Tachycardia Echocardiogram abnormal (~12/2009) GERD without esophagitis Vitamin D deficiency Ankylosing spondylitis Benign essential hypertension Surgical History History of augmentation of both breasts History of esophagogastroduodenoscopy (EGD) History of cystoscopy History of arthroscopy of left knee History of section Family History Father Hypercholesteremia Hypertension Mother Hypercholesteremia Hypertension Diabetes Maternal Grandmother History of breast cancer Social History (Updated 12/30/23 @ 14:35 by Breanna Lebron) Housing: House Alcohol intake: never Patient Tobacco Use Status: Never used Tobacco e-Cigarette/Vaping Use: Never Used Second Hand Smoke Exposure: No service: No Current occupational status: employed 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 Current occupational exposures/hazards: No Cognitive needs: No Hearing needs: No Vision needs: Yes Review of Systems Const All systems reviewed & are unremarkable except as noted in HPI and below Physical Exam Vital Signs: BMI result Body Mass Index 24.9 Const General: cooperative, healthy appearing and no acute distress Resp Effort & Inspection: normal respiratory effort and able to speak in complete sentences Cardio Rate: regular rate Peripheral pulses: Peripheral pulses 2+ throughout GI Palpation (GI): Soft to palpation Skin Lesions: no lesions Rashes: no rashes Extrem Other: Left ankle lateral sided moderate edema accompanied by tenderness to palpation. Able to dorsifelx and plantarflex. Difficulty with platarflex due to weakness and pain. Full pronation and supination. Sensation intact. Pedal pulse intact. Office Procedures Fracture Care Fracture Billing Code: Fracture Billing Code Assessment & Plan Assessment & Plan (1) Fracture of lateral malleolus of left ankle: Code(s): S82.62XA - Displaced fracture of lateral malleolus of left fibula, initial encounter for closed fracture Category: Medical Plan Erendira is a 43 year old female who presents today with a walking boot for a evaluation of her left ankle fx, DOI 12/12/23. Patient reports she was getting out of her jeep that is high off the ground and rolled her ankle. She points to where her pain is mainly located, along the lateral side of the ankle. Currently is having pain on the lateral aspect of her ankle and foot. Denies numbness and tingling in her toes. 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 She reports biking this past weekend with little discomfort but states that she tried to kept her ankle immobilized. Patient has been in the boot for the past two weeks. She is able to demonstrate good ROM and therefore, I gave her a ankle lace up brace off the shelf while in the office today. She will also be referred to physical therapy to work on ROM and strengthening. She will remain out of work until her f/u appt. She will followup in 4 weeks, sooner if needed. X-rays obtained int he office today were reviewed by me, Tatianna Castro PA-C, and redemonstrated lateral malleolar fracture. Orders: Orders XR ankle LT min 3V Today M25.579 - Pain in unspecified ankle and joints of unspecified foot PT Evaluation and Treatment Today S82.62XA - Displaced fracture of lateral malleolus of left fibula, initial encounter for closed fracture Coding Level of Care Code New Pt Level 4 (80210) Diagnoses Fracture of lateral malleolus of left ankle S82.62XA CPT Codes Fracture Care - Fracture Billing Code: Fracture Billing Code ([id number])
[2023-12-30 14:34] VITALS: BMI 24.9
== END 2023-12-30 16:44 | disposition home or self-care (01) ==
PROVIDERS: PCP Internal Medicine; Visit Provider Physician Assistant
DX: S82.62XA Displaced fracture of lateral malleolus of left fibula, initial encounter for closed fracture (principal)
CPT/HCPCS: 99203

== ENCOUNTER 2024-01-13 09:37 | Outpatient (AMB) | payer OTHER, SELFPAY ==
[2024-01-13 09:39] VITALS: BP 100/86; PULSE 77; O2SAT 98; BMI 24.6
--- NOTE | 2024-01-13 09:39 | A.OFFPC_ITS ---
Vital Signs 01/13/24 09:39 Height 5 ft 1 in Weight 130 lb 0.3 oz BMI 24.6 BP 100/86 Blood Pressure Location Lt brachial Position Sitting Pulse 77 Pulse Source Pulse Oximeter Pulse Oximetry (%) 98 Oxygen Delivery Method Room Air Intake Visit Reasons: 6 month f/u Intake Note: Patient is here to follow up on 6 months Director Risk Required: No Allergies cat dander Allergy (Mild, Verified 01/13/24 10:09) Unknown dog dander Allergy (Mild, Verified 01/13/24 10:09) Unknown Seasonal Allergies Allergy (Mild, Verified 01/13/24 10:09) Unknown Medication List - Last Reconciled 01/13/24 by Juanpablo Javier MD bupropion HCl XL (Wellbutrin XL) 300 mg PO QAM celecoxib 200 mg PO DAILY etanercept (Enbrel Mini) 50 mg subcut QWEEK fexofenadine 180 mg PO DAILY PRN fluticasone propionate 50 mcg/actuation sprays intranasal woznkc-hocarfmo-nllfvxv 24,000-76,000 -120,000 unit (Creon) 2 caps PO BID 30 days sodium,potassium,mag sulfates 17.5-3.13-1.6 gram (Suprep Bowel Prep Kit) 480 mL orally; FOR COLONOSCOPY PREP Tobacco use date assessed: 09/16/23 Dental Screening Dental Screen Date: 01/13/24 Did you have a dental visit in the last 12 months?: Yes Did you have a dental problem in the last 6 months where you did not have access to dental care?: No Was dental information given to patient?: Patient has dentist HPI 6 month f/u HPI Details Patient comes in today for her follow up visit States that her left ankle still feels slightly sore at times but has been doing a lot better lately; her walking boot was removed when she was last seen by orthopedics a couple of weeks ago Notes that her ankle feels more stable after her recent physical therapy sessions Thinks that she currently has a bout of stomach virus again, with on and off nausea/vomiting and some diarrhea for the past couple of days although she feels that her symptoms are starting to ease up today She was seen by GI a few weeks ago for her recurrent blood in her stool and was supposed to be scheduled for colonoscopy for further evaluation but she has not yet heard back from GI about her schedule States that she also stopped taking her Wellbutrin XL a few weeks ago as she did not notice any improvement in her heart rate even when she is sleeping while she was on it Admits that her anxiety has gotten somewhat worse since but she is scheduled for her next appointment with her psychiatrist next week and she will be discussing these further with them She is also now seeing APRIL for allergy testing - was advised that her initial tests showed (+) allergies to several tree pollens and she is still undergoing further testings for additional allergies She currently denies any headaches or dizziness Denies any chest pains, no increased SOB Still has some mild nausea at times but denies any vomiting; relates (+) abdominal cramping at times with on and off mild diarrhea athough she feels that her symptoms are starting to ease up this morning She is also still on Enbrel for her ankylosing spondylitis and continues to follow up with rheumatology at the [facility] Medical History COVID-19 BP (high blood pressure) Tachycardia History of kidney stones Labile hypertension Shortness of breath Acute pharyngitis Elevated blood pressure reading Abdominal pain in female Urinary frequency Positive QuantiFERON-TB Gold test Annual physical exam Left lower quadrant abdominal pain Tachycardia Echocardiogram abnormal (~12/2009) GERD without esophagitis Vitamin D deficiency Ankylosing spondylitis Benign essential hypertension Surgical History History of augmentation of both breasts History of esophagogastroduodenoscopy (EGD) History of cystoscopy History of arthroscopy of left knee History of section Family History Father Hypercholesteremia Hypertension Mother Hypercholesteremia Hypertension Diabetes Maternal Grandmother History of breast cancer Social History Housing: House Alcohol intake: never Patient Tobacco Use Status: Never used Tobacco e-Cigarette/Vaping Use: Never Used Second Hand Smoke Exposure: No service: No Current occupational status: employed 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 How often do you have a drink containing alcohol?: Monthly or less 2. How many drinks containing alcohol do you have on a typical day when you are drinking?: 1 or 2 3. How often do you have six or more drinks on one occasion?: Never Total Score: 1 Score Reviewed/Action Taken: Yes KEYA-7 AMB Questionnaire KEYA-7 Date KEYA - 7 assessed: 09/16/23 Feeling nervous, anxious, or on edge: 0 = Not at all Not being able to stop or control worryin = Not at all Worrying too much about different things: 0 = Not at all Trouble relaxin = Not at all Being so restless that it is hard to sit still: 0 = Not at all Becoming easily annoyed or irritable: 0 = Not at all Feeling afraid as if something awful might happen: 0 = Not at all Total KEYA-7 score (0-4 normal; 5-9 mild; 10-14 moderate; 15-21 severe): 0 Source: Developed by Drs. Pierce Clemente, Ciara Khalil, Maikel Zimmer and colleagues, with an educational joseline from [employer]. Review of Systems Const Denies chills, Denies fatigue, Denies fever(s) and Denies headache(s) ENT Denies dysphagia, Denies dizziness, Denies otalgia, Denies headache(s), Denies neck pain, Denies odynophagia and Denies sore throat Card Denies chest pain, Denies palpitations and Denies dyspnea Resp Denies chest congestion, Denies cough, Denies hemoptysis and Denies dyspnea GI Reports abdominal pain (over the left lower quadrant, on and off), Reports hematochezia (at times), Denies constipation, Denies dysphagia, Denies he artburn, Reports diarrhea, Reports nausea (on and off over the past couple of days), Denies odynophagia and Denies vomiting Denies difficulty voiding, Denies nocturia, Denies dysuria and Denies urinary urgency Musc Reports back pain (lower back), Reports arthralgias (pain in left ankle has improved a lot) and Denies neck pain Skin/Breast Reports rash (scattered erythematous urticarial rash/lesions, on and off) Neuro Denies dizziness and Denies headache(s) Endo Denies fatigue and Denies palpitations Physical exam (Primary Care) Vital Signs: Last Vital Signs Pulse 77 01/13/24 09:39 BP 100/86 01/13/24 09:39 Pulse Ox 98 01/13/24 09:39 Oxygen Delivery Method Room Air 01/13/24 09:39 BMI result Body Mass Index 24.6 Tobacco/Smoking Status: Tobacco use Status Tobacco use date assessed 09/16/23 01/13/24 09:41 Patient Tobacco Use Status Never used Tobacco 01/13/24 09:41 e-Cigarette/Vaping Use Never Used 01/13/24 09:41 Thrive Assessment: Date of Thrive Assessment Date Thrive assessed 09/16/23 01/13/24 09:41 Const General: no acute distress and alert HENMT Ears: TM's normal bilaterally and EAC's normal Throat: Yes posterior oropharynx normal and Yes tonsils normal Neck Neck: Yes no lymphadenopathy and Yes supple Thyroid: Thyroid normal Resp Auscultation: clear to auscultation bilaterally, no rales and no wheezes Cardio Rate: regular rate Rhythm: regular rhythm Heart sounds: no murmurs GI Palpation (GI): Soft to palpation, Tenderness to palpation present (GI) (mild) in the LLQ, no guarding and No Rebound tenderness present Auscultation: normal bowel sounds General: Yes no CVA tenderness Back/Spine/Pelvis Back: no CVA tenderness Thoracic/Lumbar Spine: lumbar spinal tenderness (mild) Skin Other: (+) scattered erythematous urticarial lesions, especially over her back Extrem General: Yes no clubbing, cyanosis or edema Left lower extremity: ankle Details: tenderness (minimal) Location: of the lateral malleolus; no swelling Assessment and Plan Assessment & Plan (1) Ankylosing spondylitis: Code(s): M45.9 - Ankylosing spondylitis of unspecified sites in spine Qualifiers: Ankylosing spondylitis location: unspecified site of spine Qualified Code(s): M45.9 - Ankylosing spondylitis of unspecified sites in spine Plan: Continue Enbrel 50 mg once a week Follow up with rheumatology (Dr. Sheffield at the [facility]) as scheduled (2) Urticaria: Code(s): L50.9 - Urticaria, unspecified Plan: Patient is now going to [facility] for allergy evaluation and management/treatment States that she tested positive for some tree pollens but is still undergoing further evaluation at this time Will try to request for copies of her OV notes and test results sent over for review and documentation (3) Blood in stool: Code(s): K92.1 - Melena Plan: She was referred to and was recently seen by GI She also mentioned to them about her frequent diarrhea and recent bouts of fecal urgency She was advised that they are going to schedule her for a colonoscopy for further evaluation and she is currently still waiting to hear from them as to when she will be scheduled Follow up with GI as scheduled (4) Benign essential hypertension: Code(s): I10 - Essential (primary) hypertension Plan: Reinforced low sodium diet - goal is systolic BP of at 120 mm or less She was on Amlodipine 5 mg QD and HCTZ 12.5 mg QD in the past but patient stopped taking her Rx last year when they ran out a and she could not get them refilled at the pharmacy right away Her blood pressure appears to be doing well since and we have held off on starting her back on her BP meds so far Have reminded patient to continue monitoring her blood pressure regularly (5) Opacity of lung on imaging study: Code(s): R91.8 - Other nonspecific abnormal finding of lung field Plan: She had a faint/hazy opacity at the right lower lobe seen on chest x-rays done back in August 2023 when she was experiencing recurrent coughing for a while States that her cough has completely cleared up since and she denies any recent acute respiratory symptoms Will just have her get a repeat chest x-ray in 4 months when she goes for her annual labs to follow up and ensure resolution of her previous chest x-ray findings (6) Nephrolithiasis: Code(s): N20.0 - Calculus of kidney Plan: Renal US last done in June 2022 still showed (+) non-obstructing renal stones bilaterally Follow up with urology as scheduled for continuing management (7) Allergic rhinitis: Code(s): J30.9 - Allergic rhinitis, unspecified Qualifiers: Allergic rhinitis seasonality: unspecified Allergic rhinitis trigger: unspecified Qualified Code(s): J30.9 - Allergic rhinitis, unspecified Plan: Continue Fexofenadine 180 mg QD PRN (8) Fracture of lateral malleolus of left ankle: Code(s): S82.62XA - Displaced fracture of lateral malleolus of left fibula, initial encounter for closed fracture Qualifiers: Encounter type: sequela Fracture alignment: nondisplaced Fracture type: closed Qualified Code(s): S82.65XS - Nondisplaced fracture of lateral malleolus of left fibula, sequela Plan: Her injury was sustained on 12/12/23 - reports that she was getting out of her jeep (which is quite high off the ground) when she slipped and fell and rolled her ankle She requested for an ankle x-ray due to increased pain and swelling in the ankle and x-rays revealed a nondisplaced fracture of the left lateral malleolus She was advised to start wearing a boot and was referred to orthopedics and she has been following up with orhtopedics since She has not required surgical correction and states that her recent physical therapy sessions have helped a lot in alleviating the pain and weakness in her ankle when she is walking - she now no longer needs or has her walking boot on Follow up with orthopedics as scheduled (9) Mood disorder: Code(s): F39 - Unspecified mood [affective] disorder Plan: She was on Wellbutrin XL 300 mg QAM but she self-discontinued this a few weeks ago when she noticed that her heart rate stayed up even when she was sleeping Admits that her anxiety has increased since she stopped taking her Rx States that she has a follow up appointment with psychiatry next week and plans to discuss these further with them Plan To return in 4 months for her next annual physical examination Patient is advised to try getting her labs done BEFORE she comes in for her annual PE in April 2024 Orders: Orders Comprehensive S[place]ag. Panel Fast 4 Months E78.00 - Pure hypercholesterolemia, unspecified, Z00.00 - Encounter for general adult medical examination without abnormal findings UA CC w/rflx Micro + Cult 4 Months R30.0 - Dysuria, Z00.00 - Encounter for general adult medical examination without abnormal findings Vitamin D 25-OH Total 4 Months E55.9 - Vitamin D deficiency, unspecified, Z00.00 - Encounter for general adult medical examination without abnormal findings XR chest 2V 4 Months R91.8 - Other nonspecific abnormal finding of lung field Complete Blood Count Auto Diff 4 Months D64.9 - Anemia, unspecified, Z00.00 - Encounter for general adult medical examination without abnormal findings Lipid Panel 4 Months E78.00 - Pure hypercholesterolemia, unspecified, Z00.00 - Encounter for general adult medical examination without abnormal findings TSH reflex Free T4 4 Months E78.00 - Pure hypercholesterolemia, unspecified, Z00.00 - Encounter for general adult medical examination without abnormal fin dings Coding Level of Care Code Est Pt Level 4 (38236) Diagnoses Ankylosing spondylitis, unspecified site of spine M45.9 Ankylosing spondylitis location: unspecified site of spine Urticaria L50.9 Blood in stool K92.1 Benign essential hypertension I10 Opacity of lung on imaging study R91.8 Nephrolithiasis N20.0 Allergic rhinitis, unspecified seasonality, unspecified trigger J30.9 Allergic rhinitis seasonality: unspecified Allergic rhinitis trigger: unspecified Closed nondisplaced fracture of lateral malleolus of left fibula, sequela S82.65XS Encounter type: sequela Fracture alignment: nondisplaced Fracture type: closed Mood disorder F39
== END 2024-01-13 10:17 | disposition home or self-care (01) ==
PROVIDERS: PCP Internal Medicine; Visit Provider Internal Medicine
DX: M45.9 Ankylosing spondylitis of unspecified sites in spine (principal); F39 Unspecified mood [affective] disorder; L50.9 Urticaria, unspecified; K92.1 Melena; I10 Essential (primary) hypertension; R91.8 Other nonspecific abnormal finding of lung field; N20.0 Calculus of kidney; J30.9 Allergic rhinitis, unspecified; S82.65XA Nondisplaced fracture of lateral malleolus of left fibula, initial encounter for closed fracture
CPT/HCPCS: 99214

== ENCOUNTER 2024-01-22 09:07 | Outpatient (AMB) | payer OTHER, SELFPAY ==
[2024-01-22 09:15] VITALS: BP 117/85; PULSE 63; BMI 25.1
--- NOTE | 2024-01-22 09:15 | MHC.OFFVIS ---
Vital Signs 01/22/24 09:15 Height 5 ft 1 in Weight 132 lb 11.492 oz BMI 25.1 BP 117/85 Blood Pressure Location Lt brachial Position Sitting Pulse 63 Intake Visit Reasons: 6 week follow up Intake Note: Erendira presents to in office today in follow up of rectal bleeding. CC: Patient states that she would like to have colonoscopy as soon as possible. She states that last week she was having abdominal pain, diarrhea, and vomiting. Eap Clinician Required: No Accompanied by: Self / Same As Patient Allergies cat dander Allergy (Mild, Verified 01/22/24 09:19) Unknown dog dander Allergy (Mild, Verified 01/22/24 09:19) Unknown Seasonal Allergies Allergy (Mild, Verified 01/22/24 09:19) Unknown No Known Drug Allergies Allergy (Unknown, Verified 01/22/24 09:19) none HPI HPI 6 week follow up: Details: Assessment & Plan (1) Hematochezia: Code(s): K92.1 - Melena Category: Medical (2) Pre-op examination: Code(s): Z01.818 - Encounter for other preprocedural examination Category: Medical (3) Fecal urgency: Code(s): R15.2 - Fecal urgency Category: Medical Plan She has been seeing large strands of RB in her stools, she was seen at [facility] a few years ago and she was told she has a colitis (she was also vomiting) and she was treated with doxy. This was about 2 years ago. She is also experiencing fecal urgency about once a month. 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 She had one recent episode of urgent vomiting as well. she was told she a small hemorrhoid when she was , she has never had a colonoscopy. No alarm sx, no FHX of stomach, colon or cancers of the GI sx. She will be seeing an woodworking belt sander and so far no food allergies. She is on Enbrel. She will notice upper abd bloating with eating, and her body feels better when she can't eat. She uses OTC prilosec prn for her stomach. She has agreeable to a colonoscopy to diagnose the bleeding and make sure there is no concerning causes. There are no prior problems with anesthesia or sedation. She denies any cardiac or respiratory problems. There are no infectious disease problems. At this point I think a trial of Creon could be prudent but will also get some stool samples to see if there is any reason to suspect inflammatory bowel disease or exocrine pancreatic insufficiency. ROV 6 weeks. Orders: Orders Pancreatic Elastase-1 Today K92.1 - Melena, R15.2 - Fecal urgency Colonoscopy - GI Use Only Today K92.1 - Melena, Z01.818 - Encounter for other preprocedural examination H Pylori Breath Test Today K92.1 - Melena, R15.2 - Fecal urgency Calprotectin, Fecal Today K92.1 - Melena, R15.2 - Fecal urgency C Reactive Protein Today K92.1 - Melena, R15.2 - Fecal urgency Medications: New sodium,potassium,mag sulfates 17.5-3.13-1.6 gram (Suprep Bowel Prep Kit) 480 mL orally; FOR COLONOSCOPY PREP 354 mL 0RF ilfoeg-lttdenzh-hqafybd 24,000-76,000 -120,000 unit (Creon) 2 caps PO BID 120 caps 3RF 30 days K58.9 - Irritable bowel syndrome without diarrhea LABS: Laboratory Tests 12/04/23 12/06/23 10:25 10:20 C-Reactive Protein < 0.04 Stool Calprotectin 84 Stool Pancreat Elastase >500 COLONOSCOPY 05/17/2024 BIOPSY TODAY'S VISIT The crejazmin did help her gas, but she was sick for 2 days out of the blue with nausea vomiting and diarrhea. Then it just seemed to mysteriously Vanish. During this time she saw her new primary care provider at [place] and they did lab work which at least did not show any elevated white counts. She continues with her allergy testing and she does have some environmental allergies including trees but they have not yet proceeded to the food allergy testing. This will be interesting. Her fecal calprotectin is borderline elevated. I am uncertain if this is affected much by her Enbrel usually it would not be. This could be a harbinger of inflammatory bowel disease but also can cover other sources of inflammation including food allergies viral infections etc.. I think the colonoscopy will be diagnostic. We failed to get the H pylori breath test so will get that today. At this point I am going to add dicyclomine to see if bowel irritability is part of the problem and she can use this as needed or when she has a severe attack to see if it is helpful. She wants to be put on a cancellation list for her colonoscopy since she works a rotating schedule and does sometimes have days off during the week. I have sent a note to the schedulers and also encouraged her to call them to make sure the communication lines are clear. ROV 6 weeks. [facility] Medical History COVID-19 BP (high blood pressure) Tachycardia History of kidney stones Labile hypertension Shortness of breath Acute pharyngitis Elevated blood pressure reading Abdominal pain in female Urinary frequency Positive QuantiFERON-TB Gold test Annual physical exam Left lower quadrant abdominal pain Tachycardia Echocardiogram abnormal (~12/2009) GERD without esophagitis Vitamin D deficiency Ankylosing spondylitis Benign essential hypertension Surgical History History of augmentation of both breasts History of esophagogastroduodenoscopy (EGD) History of cystoscopy History of arthroscopy of left knee History of section Family History Father Hypercholesteremia Hypertension Mother Hypercholesteremia Hypertension Diabetes Maternal Grandmother History of breast cancer Social History Housing: House Alcohol intake: never Patient Tobacco Use Status: Never used Tobacco e-Cigarette/Vaping Use: Never Used Second Hand Smoke Exposure: No service: No Current occupational status: employed 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 Current occupational exposures/hazards: No Cognitive needs: No Hearing needs: No Vision needs: Yes Review of Systems Const Denies fatigue, Denies fever(s), Denies night sweats, Denies poor appetite and Denies weight loss ENT Reports Normal hearing present, Denies dental pain, Denies dysphagia, Denies hearing loss, Denies mouth pain, Denies odynophagia, Denies throat swelling, Denies tongue swelling and Reports other (Dentition adequate) Card Reports no additional complaints Resp Reports no additional complaints GI Details: Denies abdominal pain, Denies melena, Denies bloating, Denies hematochezia, Denies constipation, Denies GI cramping, Denies dysphagia, Denies excessive flatus, Denies early satiety, Reports heartburn, Reports diarrhea, Reports nausea, Denies odynophagia, Reports vomiting and Denies hematemesis Skin/Breast Denies pruritus, Denies lesions, Denies rash and Denies jaundice Neuro Reports Normal hearing present and Denies Abnormal speech present Endo Denies fatigue Aller/Immun Denies throat swelling and Denies tongue swelling Physical Exam Vital Signs: Last Vital Signs Pulse 63 01/22/24 09:15 BP 117/85 01/22/24 09:15 BMI result Body Mass Index 25.1 Const General: cooperative, no acute distress, well developed and well groomed Nutritional Appearance: average body habitus and well nourished Orientation/consciousness: oriented to person, oriented to place and oriented to time Limitations: No language barrier HEENT Head: Yes normocephalic and Yes atraumatic Eyes General: appearance normal, both eyes and all related structures Pupils: Equal, round and reactive pupils present Neck Neck: Yes normal visual inspection and Yes no lymphadenopathy Thyroid: Thyroid normal Resp Effort & Inspection: normal respiratory effort and able to speak in complete sentences Auscultation: clear to auscultation bilaterally Cardio Rate: regular rate Rhythm: regular rhythm Heart sounds: Normal, physiologic split S2 sound present Peripheral pulses: radial pulses present and posterior tibial pulses present GI Inspection: No distended and No Abdominal panniculus present Palpation (GI): Soft to palpation, nontender, no guarding, not rigid and No hepatosplenomegaly present Percussion: Yes normal to percussion Auscultation: normal bowel sounds Rectal Exam - Female: deferred Skin General skin exam: no rashes or lesions noted, turgor normal, skin not dry, no jaundice, No spider nevi and no striae Rashes: no rashes Nails: normal Neuro General: oriented to person, oriented to place and oriented to time Cranial nerves: Yes Equal, round and reactive pupils present and Yes Normal hearing present Speech: No Abnormal speech present Extrem General: Yes normal to inspection, No clubbing, No cyanosis and No edema Psych Appearance: grossly normal and well kempt Mental Status: mental status grossly normal Speech and movement: Normal speech and movement present Affect: normal affect Attitude: cooperative Thought process: Normal thought process present and not confabulating Thought content: Normal thought content present Insight: Fair insight present (Psych) Judgement: Fair judgement present (Psych) Assessment & Plan Assessment & Plan (1) GERD without esophagitis: Code(s): K21.9 - Gastro-esophageal reflux disease without esophagitis Category: Medical (2) Blood in stool: Code(s): K92.1 - Melena Category: Medical (3) Nausea vomiting and diarrhea: Code(s): R11.2 - Nausea with vomiting, unspecified; R19.7 - Diarrhea, unspecified Category: Medical Plan The creon did help her gas, but she was sick for 2 days out of the blue with nausea vomiting and diarrhea. Then it just seemed to mysteriously Vanish. During this time she saw her new primary care provider at the [place] and they did lab work which at least did not show any elevated white counts. She continues with her allergy testing and she does have some environmental allergies including trees but they have not yet proceeded to the food allergy testing. This will be interesting. Her fecal calprotectin is borderline elevated. I am uncertain if this is affected much by her Enbrel usually it would not be. This could be a harbinger of inflammatory bowel disease but also can cover other sources of inflammation including food allergies viral infections etc.. I think the colonoscopy will be diagnostic. We failed to get the H pylori breath test so will get that today. At this point I am going to add dicyclomine to see if bowel irritability is part of the problem and she can use this as needed or when she has a severe attack to see if it is helpful. She wants to be put on a cancellation list for her colonoscopy since she works a rotating schedule and does sometimes have days off during the week. I have sent a note to the schedulers and also encouraged her to call them to make sure the communication lines are clear. ROV 6 weeks. Medications: New dicyclomine 20 mg PO QID PRN 120 tabs 3RF abdominal pain 30 days Coding Level of Care Code Est Pt Level 3 (40374) Diagnoses GERD without esophagitis K21.9 Blood in stool K92.1 Nausea vomiting and diarrhea R11.2; R19.7
== END 2024-01-22 09:52 | disposition home or self-care (01) ==
PROVIDERS: PCP Internal Medicine; Referring Provider Internal Medicine; Visit Provider Nurse Practitioner
DX: K21.9 Gastro-esophageal reflux disease without esophagitis (principal); K92.1 Melena; R11.2 Nausea with vomiting, unspecified; R19.7 Diarrhea, unspecified
CPT/HCPCS: 99213

== ENCOUNTER 2024-01-22 09:07 | Outpatient (REF) | payer OTHER, SELFPAY ==
[2024-01-23 10:51] LABS: H Pylori Breath Test Negative (Negative)
== END 2024-01-22 09:08 | disposition home or self-care (01) ==
LOC: HO.LNP 09:07
PROVIDERS: PCP Internal Medicine; Visit Provider Nurse Practitioner
DX: K21.9 Gastro-esophageal reflux disease without esophagitis (principal); K92.1 Melena; R11.2 Nausea with vomiting, unspecified; R19.7 Diarrhea, unspecified; R15.2 Fecal urgency
CPT/HCPCS: 83013; 99212

== ENCOUNTER 2024-01-27 08:11 | Outpatient (REF) | payer OTHER, SELFPAY ==
--- NOTE | ~2024-01-27 | XR_ITS ---
EXAMINATION: XR ANKLE, LEFT CLINICAL INFORMATION: Pain in the ankle COMPARISON: X-ray left ankle December 2023 TECHNIQUE: AP, lateral, and mortise views of the left ankle. FINDINGS: transverse fracture of the distal fibula remains conspicuous laterally. Suspect partial osseous bridging along the medial aspect of the fracture. Remaining bones joints and soft tissues unremarkable. XR/XR ankle LT min 3V IMPRESSION: Suspect partial osseous bridging of the distal fibular fracture. Electronically signed by: Bk Abbott MD 02/20/2024 07:19 AM EDT
== END 2024-01-27 08:12 | disposition home or self-care (01) ==
LOC: HO.HOSX 08:11
PROVIDERS: PCP Internal Medicine; Visit Provider Physician Assistant
DX: S82.65XS Nondisplaced fracture of lateral malleolus of left fibula, sequela (principal)
CPT/HCPCS: 73610

== ENCOUNTER 2024-01-27 08:11 | Outpatient (AMB) | payer OTHER, SELFPAY ==
--- NOTE | 2024-01-27 08:23 | A.OFFVIS_ITS ---
Vital Signs 01/27/24 08:24 Height 5 ft 1 in Weight 132 lb BMI 24.9 Intake Visit Reasons: OV - left ankle fx, DOI 12/12/23(ROM check) Intake Note: Erendira is a 43 year old female who presents today for a ROM check of her left ankle fx, DOI 12/12/23. Patient reports she is doing well. She mentions that she was working with [facility] and she notices improvements in her ROM. Allergies cat dander Allergy (Mild, Verified 01/27/24 08:23) Unknown dog dander Allergy (Mild, Verified 01/27/24 08:23) Unknown Seasonal Allergies Allergy (Mild, Verified 01/27/24 08:23) Unknown No Known Drug Allergies Allergy (Unknown, Verified 01/27/24 08:23) none HPI HPI OV - left ankle fx, DOI 12/12/23(ROM check): Details: 43-year-old female who presents in the office today for a ROM check and follow- up of a left ankle lateral malleolus fracture, which occurred on 12/12/23 status post rolling her ankle while getting out of her Jeep. I last saw the patient in the office on 12/30/23 when she supplied with a lace up ankle brace and referred to physical therapy. She was also to remain out of work until her follow-up. ? ? While in the office today, the patient reports she is doing well. She confirms working with [facility] and states she has noticed improvements in her ROM.? [facility] Medical History COVID-19 BP (high blood pressure) Tachycardia History of kidney stones Labile hypertension Shortness of breath Acute pharyngitis Elevated blood pressure reading Abdominal pain in female Urinary frequency Positive QuantiFERON-TB Gold test Annual physical exam Left lower quadrant abdominal pain Tachycardia Echocardiogram abnormal (~12/2009) GERD without esophagitis Vitamin D deficiency Ankylosing spondylitis Benign essential hypertension Surgical History History of augmentation of both breasts History of esophagogastroduodenoscopy (EGD) History of cystoscopy History of arthroscopy of left knee History of section Family History Father Hypercholesteremia Hypertension Mother Hypercholesteremia Hypertension Diabetes Maternal Grandmother History of breast cancer Social History Housing: House Alcohol intake: never Patient Tobacco Use Status: Never used Tobacco e-Cigarette/Vaping Use: Never Used Second Hand Smoke Exposure: No service: No Current occupational status: employed 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 Current occupational exposures/hazards: No Cognitive needs: No Hearing needs: No Vision needs: Yes Review of Systems Const All systems reviewed & are unremarkable except as noted in HPI and below Physical Exam Vital Signs: BMI result Body Mass Index 24.9 Const General: cooperative, healthy appearing and no acute distress Resp Effort & Inspection: normal respiratory effort and able to speak in complete sentences Cardio Rate: regular rate Peripheral pulses: Peripheral pulses 2+ throughout GI Palpation (GI): Soft to palpation Skin Lesions: no lesions Rashes: no rashes Extrem Other: Left ankle: Normal to inspection. No ecchymosis, erythema, or edema. No tenderness to palpation over the lateral malleolus at the fracture site. Patient is able to demonstrate dorsiflexion, plantar flexion, pronation and supination. Negative anterior drawer. Sensation intact. Pedal Pulse intact.? ? Assessment & Plan Assessment & Plan (1) Fracture of lateral malleolus of left ankle: Code(s): S82.62XA - Displaced fracture of lateral malleolus of left fibula, initial encounter for closed fracture Category: Medical Qualifiers: Encounter type: sequela Fracture alignment: nondisplaced Fracture type: closed Qualified Code(s): S82.65XS - Nondisplaced fracture of lateral malleolus of left fibula, sequela Plan Ms. Joel is a 43-year-old female who presents in the office today for a ROM check and follow-up of a left ankle lateral malleolus fracture, which occurred on 12/12/23 status post rolling her ankle while getting out of her Jeep. I last saw the patient in the office on 12/30/23 when she supplied with a lace up ankle brace and referred to physical therapy. She was also to remain out of work until her follow-up. ? ? While in the office today, the patient reports she is doing well. She confirms working with [facility] and states she has noticed improvements in her ROM.? ? The patient may return to normal activities as tolerated. She will complete all remaining sessions of physical therapy. She may return to work full-time regular duty. Follow-up will be PRN, or sooner if needed. ? ? X-rays of the left ankle which were obtained while in the office today and were reviewed by me, Tatianna Castro PA-C, revealed routine healing of a left lateral malleolus fracture. ? Orders: Orders XR ankle LT min 3V Today M25.579 - Pain in unspecified ankle and joints of unspecified foot Patient Instructions: Scribed by Sally Pimentel medical office asst, for Tatianna Castro PA-C on 01/27/2024 at 8:27 am, EST.? Coding Level of Care Code Global (09054) Diagnoses Closed nondisplaced fracture of lateral malleolus of left fibula, sequela S82.65XS Encounter type: sequela Fracture alignment: nondisplaced Fracture type: closed
[2024-01-27 08:24] VITALS: BMI 24.9
== END 2024-01-27 08:48 | disposition home or self-care (01) ==
PROVIDERS: PCP Internal Medicine; Visit Provider Physician Assistant
DX: S82.65XS Nondisplaced fracture of lateral malleolus of left fibula, sequela (principal)
CPT/HCPCS: 99213

== ENCOUNTER 2024-03-09 08:39 | Outpatient (REF) | payer OTHER, SELFPAY ==
--- NOTE | ~2024-03-09 | MM_ITS ---
EXAMINATION: MM SCREENING DIGITAL BREAST TOMOSYNTHESIS, BILATERAL CLINICAL INFORMATION: Screening. Asymptomatic. COMPARISON: Mammography: Comparison is made with relevant avialable priors. TECHNIQUE: Digital mammography is performed in craniocaudal and mediolateral oblique views along with computer-aided detection (CAD). Digital breast tomosynthesis is performed in implant-displaced craniocaudal and implant-displaced mediolateral oblique views along with computer-aided detection (CAD). FINDINGS: There are scattered areas of fibroglandular density (ACR BI-RADS breast composition Category b). Bilateral retropectoral implants are stable appearing. There are no significant masses, abnormal calcifications, or other abnormalities. MM/MM tomosynthesis screen imp BI IMPRESSION: There are no significant changes from prior study. ASSESSMENT: BI-RADS BI-RADS 2 - Benign Findings RECOMMENDATION: Routine annual mammography screening. 1 year F/U This patient's information was entered into a reminder system with a target due date for their next mammogram. Electronically signed by: Alexandrea Schmidt DO 03/22/2024 03:56 PM EDT
== END 2024-03-09 08:40 | disposition home or self-care (01) ==
LOC: HO.MAMMO 08:39
PROVIDERS: PCP Internal Medicine; Referring Provider Nurse Practitioner Family; Visit Provider Nurse Practitioner Family
DX: Z12.31 Encounter for screening mammogram for malignant neoplasm of breast (principal)
CPT/HCPCS: 77063; 77067

== ENCOUNTER → 2024-03-09 08:45 | Outpatient (BNV) | payer OTHER, SELFPAY | PROVIDERS: PCP Internal Medicine; Referring Provider Nurse Practitioner Family; Visit Provider Internal Medicine | DX: Z12.31 Encounter for screening mammogram for malignant neoplasm of breast (principal) | CPT/HCPCS: 77063; 77067 ==

== ENCOUNTER 2024-05-18 10:41 | Outpatient (AMB) | payer OTHER, SELFPAY ==
[2024-05-18 11:16] VITALS: BP 110/60; PULSE 71; O2SAT 97; BMI 25.2
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
== END 2024-05-18 12:36 | disposition home or self-care (01) ==
PROVIDERS: PCP Internal Medicine; Visit Provider Internal Medicine
DX: M45.9 Ankylosing spondylitis of unspecified sites in spine (principal); F39 Unspecified mood [affective] disorder; L50.9 Urticaria, unspecified; K92.1 Melena; I10 Essential (primary) hypertension; R51.9 Headache, unspecified; R91.8 Other nonspecific abnormal finding of lung field; N20.0 Calculus of kidney; J30.9 Allergic rhinitis, unspecified; S82.65XS Nondisplaced fracture of lateral malleolus of left fibula, sequela

== ENCOUNTER 2024-05-18 12:00 | Day surgery (SDC) | payer OTHER, SELFPAY ==
[2024-05-14 15:13] VITALS: BMI 24.6
[2024-05-18 13:41] VITALS: BMI 25.2
[2024-05-18 13:47] LABS: UPreg QC Valid YES
[2024-05-18 13:48] VITALS: BP 133/81; PULSE 68; RESP 16; TEMP 36.6; O2SAT 100
[2024-05-18 13:51] LABS: Urine Pregnancy NEGATIVE (NEGATIVE)
[2024-05-18] MEDS: Lactated Ringers 1,000 ML 100 ML IVCONT (14:15)
--- NOTE | 2024-05-18 14:55 | P.HPSUR_ITS ---
Pre-Procedural Eval Section A - 24 Hr Update-Section A only Date of Service: 05/18/24 Section B - Complete if H&P > 30 days Chief Complaint: Fecal urgency Details of Present Illness: nausea and rectal bleeding Relevant Family History (Specify if Yes): No Relevant Social History: None Present Medications: see Short Stay Collaborative assessment Medical History: Significant History (OVID-19 BP (high blood pressure) Tachycardia History of kidney stones Labile hypertension Shortness of breath Acute pharyngitis Elevated blood pressure reading Abdominal pain in female Urinary frequency Positive QuantiFERON-TB Gold test Annual physical exam Left lower quadrant abdominal pain Tachyca) History of Previous Operations: Relevant previous surgery/procedure and date(s) (History of augmentation of both breasts History of esophagogastroduodenoscopy (EGD) History of cystoscopy History of arthroscopy of left knee History of section) Allergies: Allergies Allergy/AdvReac Type Severity Reaction Status Date / Time cat dander Allergy Mild Unknown Verified 05/18/24 11:43 dog dander Allergy Mild Unknown Verified 05/18/24 11:43 Seasonal Allergies Allergy Mild Unknown Verified 05/18/24 11:43 Review of Systems Sugical H&P ROS: Negative: Constitution, Cardiovascular, Respiratory, Neurological, Psychiatric, Hem-Onc, Allergic/Immunologic, Gastrointestinal, Genitourinary, Musculoskeletal, Integumentary, Endocrine and Eyes/Ears/No se/Throat Exam Surgical H&P Exam: Normal: HEENT, Normal: Heart, Normal: Lungs, Normal: Extremities, Normal: Abdomen, Normal: Skin and Normal: Neurological Plan Diagnosis/Plan: Unchanged I have reviewed the history and physical and performed a pertinent physical examination on my patient. No changes have occurred unless specified. nausea and rectal bleeding, EGD and colo for Ix Time Spent With Patient Time: Total time managing care of this patient today ____ minutes.
--- NOTE | 2024-05-18 15:51 | HO.OPN-COLON ---
Colonoscopy Operative Note Operative Note Date of Service: 05/18/24 Narrative: Operative Information Procedure Description: EGD, Colonoscopy Indication:nausea and abn bowel habits Anesthesia: MAC FLEXIBLE TRANSORAL UPPER GASTROINTESTINAL ENDOSCOPY AND COLONOSCOPY PROCEDURE NOTE UPPER ENDOSCOPY Consent: Indications for the procedure and potential complications of bleeding, perforation, reaction to medications and missed diagnosis were discussed with the patient and informed consent was obtained. Instrument: Olympus GIF H 190 J mid size upper endoscope Monitoring: Vital signs and clinical assessment, continuous EKG monitoring, Pulse oximetry, Carbon Dioxide monitoring and blood pressure monitoring were done throughout the procedure. Procedure: The patient was placed in the left lateral decubitis position and pre-procedure medications were administered and a bite block was placed. The endoscope was inserted into the mouth and advanced under direct vision to the third part of duodenum. A careful inspection was made as the upper endoscope was withdrawn including a retroflexed examination of the proximal stomach; Findings and interventions are described below. Findings: Larynx:normal Esophagus: GE junction at 35 cm, diaphragm hiatus at 37 cm, consistent with 2 cm sliding hiatal hernia, midl esophagitis noted, bx taken Stomach: patchy erythema with erosions. Biopsies were obtained. Grade 2 flap valve on retroflexed examination of the cardia. Duodenum: Normal bulb and descending duodenum, bx taken Intervention: Biopsies as noted above, COLONOSCOPY Instrument: Olympus variable stiffness pediatric scope 190L Colonoscopy Monitoring: Vital signs and clinical assessment, continuous EKG monitoring, Pulse oximetry, Carbon Dioxide monitoring and blood pressure monitoring were done throughout the procedure. Colon withdrawal time was 15 minutes. Procedure: The patient was placed in the left lateral decubitis position and pre-procedure medications were administered. After a digital rectal examination of the ano-rectum, the video colonoscope was inserted into the rectum and advanced through the colon to the cecum/TI. The colonoscope was slowly withdrawn in a retrograde panoramic fashion and the colon mucosa was carefully examined including a retroflexed view of the rectum. Findings and interventions are described below. Procedure Difficulty:moderate Findings: Tortuous colon ++ Terminal Ileum-normal- superficially intubated Random colon bx taken Cecum:normal Ascending Colon: normal Transverse Colon -normal Descending Colon:normal Sigmoid Colon: normal Rectum: Retroflexion with small internal hemorrhoids, grade I Anorectum - normal Colon preparation: [place] Bowel Preparation Scale Right colon; 1-2 Transverse colon: 2- Left colon; 1-2 (0 = Unprepared colon segment with mucosa not seen due to solid stool that cannot be cleared. 1 = Portion of mucosa of the colon segment seen, but other areas of the colon segment not well seen due to staining, residual stool and/or opaque liquid. 2 = Minor amount of residual staining, small fragments of stool and/or opaque liquid, but mucosa of colon segment seen well. 3 = Entire mucosa of colon segment seen well with no residual staining, small fragments of stool or opaque liquid) Impression and Post Procedure Diagnosis: Endoscopy Findings: esophagitis erosive gastritis hiatal hernia Colonoscopy Findings: tortuous colon internal hemorrhoids Plan: Await Pathology results Repeat Colonoscopy in 1 year due to fair prep on right side or earlier if clinically indicated High fiber diet leaflet avoid straining at stool, epsom salts and sitz bath, anusol supps or cream consider PPI given she has nausea Above findings were reviewed with the patient and relevant handouts were provided if indicated.
[2024-05-18 15:57] VITALS: BP 113/68; PULSE 72; RESP 18; TEMP 36.1; O2SAT 98
[2024-05-18 16:12] VITALS: BP 120/82; PULSE 78; RESP 18; TEMP 36.8; O2SAT 98
--- NOTE | 2024-05-18 17:11 | P.CONAN_ITS ---
HPI - Anesthesia Eval Consult details Narrative: 43 F for egd/colonoscopy PMF Active Problems Active Problems: All Active Problems Nausea vomiting and diarrhea (Acute) Opacity of lung on imaging study (Acute) Fracture of lateral malleolus of left ankle (Acute) Closed left ankle fracture (Acute) Left ankle pain (Acute) Fecal urgency (Acute) Pre-op examination (Acute) Hematochezia (Acute) Mood disorder (Acute) Recurrent cough (Acute) Urticaria (Acute) Blood in stool (Acute) Lipoma (Acute) HTN (hypertension) (Acute) Allergic rhinitis (Acute) Tachycardia (Acute) Chronic UTI (urinary tract infection) (Acute) Nephrolithiasis (Acute) Benign essential hypertension (Acute) GERD without esophagitis (Acute) Vitamin D deficiency (Acute) Ankylosing spondylitis (Acute) Past Medical History Medical History Nephrolithiasis Mood disorder Positive QuantiFERON-TB Gold test Urinary frequency Echocardiogram abnormal (~12/2009) GERD without esophagitis Vitamin D deficiency History of kidney stones Ankylosing spondylitis Tachycardia Benign essential hypertension Family History Family History Father Hypercholesteremia Hypertension Mother Hypercholesteremia Hypertension Diabetes Maternal Grandmother History of breast cancer Family history of problems with anesthesia: No Surgical History Surgical History History of augmentation of both breasts History of esophagogastroduodenoscopy (EGD) History of cystoscopy History of arthroscopy of left knee History of section History of Problems with Anesthesia: No Social History Social History Housing: House Are you a primary healthcare financial analyst to a significant other at home: No Do you presently have visiting nurse or other home services: No Alcohol intake: never Patient Tobacco Use Status: Never used Tobacco e-Cigarette/Vaping Use: Never Used Second Hand Smoke Exposure: No service: No Current occupational status: employed 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 Current occupational exposures/hazards: No Cognitive needs: No Hearing needs: No Vision needs: Yes Meds Allergies Allergy/AdvReac Type Severity Reaction Status Date / Time cat dander Allergy Mild Unknown Verified 05/18/24 11:43 dog dander Allergy Mild Unknown Verified 05/18/24 11:43 Seasonal Allergies Allergy Mild Unknown Verified 05/18/24 11:43 Home Medications ?Medication ?Instructions ?Recorded ?Confirmed ?Last Taken ?Type fexofenadine 180 mg tablet 180 mg PO DAILY PRN allergy 05/03/21 05/18/24 Unknown History symptoms etanercept 50 mg/mL (1 mL) 50 mg subcut QWEEK 10/30/21 05/18/24 Unknown History subcutaneous cartridge (Enbrel Mini) celecoxib 200 mg capsule 200 mg PO DAILY 12/04/23 05/18/24 Unknown History Exam Height,Weight and Vital Signs: Height 5 ft 1 in Weight 133 lb 4 oz Last Vital Signs Temp 98.3 F 05/18/24 16:12 Pulse 78 05/18/24 16:12 Resp 18 05/18/24 16:12 BP 120/82 05/18/24 16:12 Pulse Ox 98 05/18/24 16:12 O2 Del Method Room Air 05/18/24 16:12 Pertinent Lab Results Pertinent Lab Results: Laboratory Tests 05/18/24 13:28 Urine Test NEGATIVE Airway Mallampati Class: II TM Dist: >3cm Neck ROM: Full Loose/Missing/Broken Teeth: Yes Assessment and Plan Assessment Anesthesia Assessment: Anesthesia Plan Discussed and Chart Reviewed Final Anesthetic Review Family History of Problems with Anesthesia: No History of Problems with Anesthesia: No NPO: Yes ASA Class: II Final Preanesthetic Review: No Changes in Pt Med Stat, Meds/Allgs Chart Reviewed, Consent Obtained/Reviewed and Anes Risks/Benef Reviewed Patient Risk: Low Procedure Risk: Low Anesthetic Plan Anesthetic Plan: MAC: Disposition: Standard PACU
== END 2024-05-18 16:19 | disposition home or self-care (01) ==
PROVIDERS: Anesthesiology; PCP Internal Medicine; Visit Provider Internal Medicine Gastroenterology
PROC: (CPT 45380; principal; 2024-05-18 14:00)
DX: K56.2 Volvulus (principal); K64.0 First degree hemorrhoids; K20.90 Esophagitis, unspecified without bleeding; K29.00 Acute gastritis without bleeding; K44.9 Diaphragmatic hernia without obstruction or gangrene; K21.9 Gastro-esophageal reflux disease without esophagitis; I10 Essential (primary) hypertension; R15.2 Fecal urgency; K92.1 Melena; Z79.899 Other long term (current) drug therapy
CPT/HCPCS: 45380; 43239; 81025; 88305; 88313; 88342; 96127

== ENCOUNTER → 2024-05-18 12:00 | Outpatient (BNV) | payer OTHER, SELFPAY | PROVIDERS: PCP Internal Medicine; Visit Provider Internal Medicine Gastroenterology | DX: R11.0 Nausea (principal); K20.90 Esophagitis, unspecified without bleeding; K29.70 Gastritis, unspecified, without bleeding; R19.4 Change in bowel habit; Q43.8 Other specified congenital malformations of intestine; K64.0 First degree hemorrhoids | CPT/HCPCS: 43239; 45380 ==

== ENCOUNTER 2024-06-15 10:46 | Outpatient (AMB) | payer OTHER, SELFPAY ==
--- NOTE | 2024-06-15 10:48 | A.OFFVIS_ITS ---
Intake Visit Reasons: Recurrent UTI Follow Up(Needs Ultrasound) Intake Note: Patient is present for RECURRENT UTI F/U Urology Medication:NONE Antibiotic Allergy:NONE Blood Thinner:NONE [employer] [facility] Consultant Required: No Allergies cat dander Allergy (Mild, Verified 06/15/24 10:49) Unknown dog dander Allergy (Mild, Verified 06/15/24 10:49) Unknown Seasonal Allergies Allergy (Mild, Verified 06/15/24 10:49) Unknown HPI Comments Details: Erendira is a pleasant female. She is a patient of Dr. Javier. She is seen for the following urologic conditions - nephrolithiasis - recurring UTI Telemedicine evaluation 15 minute consultation [employer] Margie Video Remains on Enbrel for RA Known small stones bilateral - no recent US Needs letter for [facility] detailing that senior care Embrel use is associated with an immunocompromised state that can result in recurrent UTIs. Letter prepared and mailed to Erendira Urinary Tract Infection:?They present for recurrent UTI's - has had symptoms 5 times early 2015. Embrel since 2004 for RA ?The first infection began years ago.?The frequency of recurrences has been 2016 3 over past 6 months.?Therapy has included symptomatic use of antibiotics ? 2016 suppressive antibiotic regimen - doxy with side effects, macrobid ? - probiotic ? - symptomatic.?Prior cultures have shown 04/07 streptococcus.?Recent labs included a urinalysis, showing significant pyruria and blood.?Recent testing included Jan 2016 - KUB - possible renal stone ? an ultrasound, Feb 2016 - bilateral 4mm stones, emptying bladder effectively ? , a cystoscopy - cystitis 03/08.?Relevant medical history? diabetes? No ? constipation? No ? incomplete bladder emptying? No ? renal stones? Yes ? genitourinary surgery? No ? association of infections with intercourse? No ? history of vesicoureteral reflux? No ?Self-administered antibiotics 11/06 - Normal cystoscopy. Biopsies taken. Moderate edema. Suppression antibiotics for 3 months..?Therapeutic plan will include see in 6m - imaging for stones.?Risk, benefits and alternatives to therapy were discussed regarding the use and timing of prescribed medications. Pertinent side effects and interactions for medications were highlighted and adherence emphasized. Nephrolithiasis/Urolithiasis:?They are here for further evaluation of nephrolithiasis.?24 Hour urine evaluation 08/09 - Low Urine volume < 2.0 liters, High oxalate > 30mg, Low calcium <200, High Citrate.?Prior imaging includes 04/08 , a renal ultrasound, showing radiodense stone(s), bilaterally 5mm - 10/08 , a renal ultrasound, showing radiodense stone(s) 3mm R, 4mm L - 09/11 renal ultrasound with small stone on left, right renal cyst - 07/15 renal ultrasound multiple bilateral small 3 mm stones ?The stone's maximum size is <5mm.?UA today shows high specific gravity suggestive of relative dehydration.?Current therapeutic plan will be to continue with imaging surveillance, General advice to maintain good fluid intake for urine greater than 1.5 L per day, reduce salt and reduce protein and acid loads was provided [facility] Medical History Nephrolithiasis Mood disorder Positive QuantiFERON-TB Gold test Urinary frequency Echocardiogram abnormal (~12/2009) GERD without esophagitis Vitamin D deficiency History of kidney stones Ankylosing spondylitis Tachycardia Benign essential hypertension Surgical History History of augmentation of both breasts History of esophagogastroduodenoscopy (EGD) History of cystoscopy History of arthroscopy of left knee History of section Family History Father Hypercholesteremia Hypertension Mother Hypercholesteremia Hypertension Diabetes Maternal Grandmother History of breast cancer Social History Housing: House Are you a primary medicare contact specialist to a significant other at home: No Do you presently have visiting nurse or other home services: No Alcohol intake: never Patient Tobacco Use Status: Never used Tobacco e-Cigarette/Vaping Use: Never Used Second Hand Smoke Exposure: No service: No Current occupational status: employed 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 Current occupational exposures/hazards: No Cognitive needs: No Hearing needs: No Vision needs: Yes Review of Systems Const All systems reviewed & are unremarkable except as noted in HPI and below Reports no additional complaints Resp Reports no additional complaints GI Reports no additional complaints Reports as per HPI Musc Reports no additional complaints Physical Exam Telemedicine evaluation Appropriate responses Regular breathing rate and rhythm HEENT Head: Yes normal to inspection Ears: hearing grossly normal bilaterally Eyes General: appearance normal, both eyes and all related structures Neck Neck: Yes normal visual inspection Chest Chest palpation & inspection: normal inspection of the chest Resp Effort & Inspection: normal respiratory effort and able to speak in complete sentences Telehealth Telehealth Telehealth Platform: [employer] Location of provider rendering services: practice address Location of patient: address on file Patient Identification confirmed using: Name, : Yes Telehealth method: video Patient verbally consented to treatment: Yes Patient verbally consented to billing insurance company: Yes Patient informed of any privacy concerns related to visit: Yes Minutes spent on Phone/Video with Pt.: 15 Assessment & Plan Assessment & Plan (1) Chronic UTI (urinary tract infection): Code(s): N39.0 - Urinary tract infection, site not specified Category: Medical (2) Immunocompromised state due to drug therapy: Code(s): D84.821 - Immunodeficiency due to drugs; Z79.899 - Other long term acute care registered nurse (current) drug therapy Category: Medical Plan renal US Vit C Orders: Orders US renal BI 1 Month N20.0 - Calculus of kidney Medications: New ascorbic acid (vitamin C) 1 g PO DAILY 90 tabs 1RF 90 days N39.0 - Urinary tract infection, site not specified Patient Instructions: Imaging studies, laboratory and physical exam results were discussed and reviewed in detail. No major barriers to patient understanding were identified. An opportunity to ask questions regarding the treatment plan was provided. All questions were answered. The patient expressed understanding and agreement with the above treatment plan. The patient is aware they should contact our office by phone for worsening of their current condition or the appearance of new urologic symptoms. Compliance is encouraged with any medications and followup testing that is ordered. It is a privilege to participate in the urologic care of your patient. If you have any questions or concerns regarding treatment for the above conditions, or other urologic issues, please do not hesitate to contact me. The office telephone contact is [phone]. This note is constructed using voice recognition software. While every effort has been made to ensure accuracy roentgenologist errors may have been included. Yours sincerely, Dr Tariq Celis MD, [facility] - Urology Providers of Expert, Compassionate Care for the Genitourinary System Coding Level of Care Code Tele Est Pt Level 4 (54681) Diagnoses Chronic UTI (urinary tract infection) N39.0 Immunocompromised state due to drug therapy D84.821; Z79.899
--- OUTSIDE RECORDS SUMMARY | 2024-06-15 10:48 | XMS_ITS ---
Author Name Department of Vetera Affairs ([place]) Organization [facility] of [facility] ([place]) Address [address] [place] [address] Care Team Providers Care Fur Feeder Name Role Phone TRINH FRANCO Primary Care [...] Gibson's Name Patient's Relationship to Policy Gibson CAREMARK PRESCRIPT ION [facility] Dec 21, 2022 [id number] [phone] Jelani ALVAREZ PATIENT [employer] ([id number]) PRESCRIPT ION GIC Jun 07, 2022 [id number] Jelani ALVAREZ PATIENT [facility] ORGANIZAT ION [facility] Jun 07, 2022 [id number] [phone] Jelani ALVAREZ PATIENT Selected Encounter This section includes the information on record at [place] for the Encounter. Date/Time Encounter Type Encounter Description Reason Pro vider Source October 22, 2023 12:24 PM Outpatient Encounter PRIMARY CARE/MEDICINE IHE Encounter Template Text not used by VA Plan of Treatment: Future Appointments (+ 6 months) and Future Tests (+/- 45 days) The Plan of Treatment section includes future care activities for the patient from all [place] [facility]. This section includes future appointments and future orders which are active, pending or scheduled. Future Appointments This section includes appointments that were scheduled to occur 6 months from the date of the Encounter, up to a maximum of 20 appointments. The data comes from all [facility]. Appointment Date/Time Appointment Type Appointme nt Facility Name Jan 12, 2024 02:30 PM [facility] Jan 16, 2024 11:00 AM AM[facility]ULATORY [facility]AB [facility] Jan 22, 2024 09:15 AM [facility] Jan 28, 2024 09[facility]00 AM [facility] Feb 25, 2024 09:30 AM [facility]AB [facility] Feb 27, 2024 01:30 PM [facility] Mar 09, 2024 08:45 AM [facility]UL[facility] Apr 16, 2024 11:00 AM [facility] Advance Directives: All historical and current Section Date Range: From patient's date of to the date document was created. This section includes ALL of a patient's completed or amended [place] Advance and Rescinded Directives. The entries below indicate that a directive exists for the patient, but an actual copy is not included with this document. The data comes from all [facility]. Date Advance Directives Provider Source Mar 25, 2023 ADVANCE DIRECTIVE PETROS MOTLEY [facility] Encounter Notes: All associated encounter notes This section contains the clinical notes associated to the Encounter. Date/Time Encounter Note(s) Provider Source October 22, 2023 12:24 PM NURSING NOTE: LOCAL TITLE: NURSING NOTE STANDARD TITLE: NURSING NOTE DATE OF NOTE: OCTOBER 22, 2023@12:24 ENTRY DATE: OCTOBER 22, 2023@12:24:31 AUTHOR: CONCHA BENTON EXP COSIGNER: URGENCY: STATUS: COMPLETED REquested most recent mammogram from [facility] mammo dept by fax /es/ Concha Benton, RN, BSN Women's Healthcare Navigator, RN Signed: 10/22/2023 12:24 CONCHA BENTON
--- OUTSIDE RECORDS SUMMARY | 2024-06-15 10:48 | XMS_ITS ---
Author Name Department of Vetera Affairs ([place]) Organization [facility] ([place]) Address [address] [place] [address] Care Team Providers Care Cleaner Wall Name Role Phone TRINH FRANCO Primary Care [...] Relationship to Policy Gibson CAREMARK PRESCRIPT ION [facility] Dec 21, 2022 [id number] Jelani ALVAREZ PATIENT [employer] ([id number]) PRESCRIPT ION GIC Jun 07, 2022 [id number] [phone] Jelani ALVAREZ PATIENT [facility] CE ORGANIZAT ION [facility] Jun 07, 2022 [id number] Jelani ALVAREZ PATIENT Selected Encounter This section includes the information on record at [place] for the Encounter. Date/Time Encounter Type Encounter Description Reason Pro vider Source Jan 13, 2024 07:43 AM Outpatient Encounter PRIMARY CARE/MEDICINE IHE Encounter Template Text not used by VA Plan of Treatment: Future Appointments (+ 6 months) and Future Tests (+/- 45 days) The Plan of Treatment section includes future care activities for the patient from all [place] [facility]. This section includes future appointments and future orders which are active, pending or scheduled. Future Appointments This section includes appointments that were scheduled to occur 6 months from the date of the Encounter, up to a maximum of 20 appointments. The data comes from all [place] treatment [facility]. Appointment Date/Time Appointment Type Appointme nt Facility Name Jan 16, 2024 11:00 AM AMBULATORY - REHAB [facility] Jan 22, 2024 09:15 AM AMBULATORY - [place]IC[place] [facility] Jan 28, 2024 09:00 AM AMBULATORY - [place]ICINE [place] [facility] Feb 25, 2024 09:30 AM AMBULATORY - REHAB [facility] Feb 27, 2024 01:30 PM AMBULATORY - [facility] [place] [facility] Mar 09, 2024 08:45 AM AMBULATORY - MEDICINE [place] [facility] Apr 16, 2024 11:00 AM AMBULATORY - [facility] [place] [facility] [place] [facility] May 06, 2024 01:00 PM AMBULATORY - MEDICINE [place] [facility] [place] [facility] May 14, 2024 11:00 AM AMBULATORY - [place] [place] [facility] [place] [facility] May 14, 2024 01:00 PM AMBULATORY - PS[place]IATRY [place] [facility] [place] [facility] May 28, 2024 01:00 PM AMBULATORY - PS[place]IATRY [place] [facility] [place] [facility] Jun 11, 2024 01:30 PM AMBULATORY - PS[place]IATRY [place] [facility] [place] [facility] Jun 11, 2024 02:00 PM AMBULATORY - PS[place]CHIATRY [place] [facility] [place] [facility] Jun 15, 2024 10:45 AM AMBULATORY - MEDICINE [place] [facility] [place] [facility] Jun 18, 2024 01:00 PM AMBULATORY - PS[place]CHIATRY [place] [facility] [place] [facility] Jun 25, 2024 01:00 PM AMBULATORY - PS[facility]CHIATRY [place] [facility] [place] [facility] Jul 02, 2024 01:00 PM AMBULATORY - PS[facility]CHIATRY [place] [facility] [place] [facility] Jul 09, 2024 01:00 PM AMBULATORY - PS[facility]CHIATRY [place] [facility] [place] [facility] Lab Results: +/- 30 days of the encounter This section includes the Chemistry and Hematology Lab Results on record with [place] for the patient. Radiology Reports and Pathology Reports are provided separately, in subsequent sections. Lab Results This section contains the Chemistry/Hematology Results that were resulted 30 days before or 30 daysafter the date of the Encounter. Date/Time Source Result Type Result - Unit Interpretation Reference Range Comment Jan 12, 2024 03:32 PM [facility] BASIC METABOLIC PANEL (non-fasting) Specimen Type: SERUM No comment entered. Ordering Provider: TRINH FRANCO Report Released Date/Time: Jan 12, 2024 03:18 PM Reporting Lab: [address] [address] Performing Lab: [address] [address] UREA NITROGEN 18 mg/dL 7-25 GLUCOSE 108 mg/dL H 65-100 SODIUM 136 mmol/L 135-145 POTASSIUM 4.4 mmol/L 3.5-5.0 CHLORIDE 103 mmol/L 100-110 CO2 27 meq/L 20-30 CREATININE, Serum 0.90 mg/dL 0.50-1.40 eGFR(CKD-EPI 2020) 81 mL/min >60 Jan 12, 2024 03:32 PM [facility] LIPID PANEL FASTING Specimen Type: SERUM No comment entered. Ordering Provider: TRINH FRANCO Report Released Date/Time: Jan 12, 2024 03:18 PM Reporting Lab: [address] [id number] Performing Lab: [address] [address] CHOLESTEROL 200 mg/dL H TRIGLYCERIDE 64 mg/dL 0-150 LDL calculated 127 mg/dL 0-129 CHOL/HDL 3.3 HDL CHOLESTEROL 60 mg/dL 40-60 Jan 12, 2024 03:32 PM [facility] LIVER FUNCTION Specimen Type: SERUM No comment entered. Ordering Provider: TRINH FRANCO Report Released Date/Time: Jan 12, 2024 03:18 PM Reporting Lab: [facility] [address] [facility] [address] Performing Lab: [facility] [address] [facility] [address] PROTEIN,TOTAL 7.2 g/dL 6.0-8.3 ALBUMIN 3.8 g/dL 3.5-5.0 ALKALINE PHOSPHATASE 49 U/L 40-150 AST 15 U/L 5-34 ALT 18 U/L BILIRUBIN, TOTAL 0.8 mg/dL 0.2-1.2 Jan 12, 2024 03:32 PM [facility] CBC AND DIFF (AUTO) Specimen Type: BLOOD No comment entered. Ordering Provider: TRINH FRANCO Report Released Date/Time: Jan 12, 2024 03:18 PM Reporting Lab: [facility] [address] [facility] [address] Performing Lab: [address] [address] WBC 7.29 10*3/uL 4.50-11.00 RBC 3.82 10*6/uL L 3.93-5.16 HGB 12.6 g/dL 12-15.2 HCT 36.7 36.6-45.6 MCV 96.1 fL 82-99 MCHC 34.3 g/dL 30.8-35.1 PLT 308 10*3/uL 140-360 RDW-CV 11.7 L 12.0-16.0 MONO, ABS 0.86 10*3/uL 0.30-1.10 MCH 33.0 pg H 26.2-32.6 NEUT % 57.7 43.7-75.8 LYMPH % 27.8 14.0-42.3 MONO % 11.8 5.1-13.7 EOS % 1.9 0.4-6.8 BASO % 0.4 0.1-2.0 NEUT, ABS 4.20 10*3/uL 2.20-7.60 LYMPH, ABS 2.03 10*3/uL 1.00-3.20 EOS, ABS 0.14 10*3/uL 0.03-0.44 BASO, ABS 0.03 10*3/uL 0.01-0.13 IMMATURE GRAN % 0.4 0.0-0.7 IMMATURE GRAN, ABS 0.03 10*3/uL 0.00-0.06 NRBC % 0.0 0.0-0.0 NRBC, ABS 0.00 10*3/uL 0.00-0.00 Jan 12, 2024 03:32 PM [facility] HEMOGLOBIN A1C PANEL Specimen Type: BLOOD Comment: Values obtained from A1C measurements can vary. For atypical A1C assays, a reported value of 7.0 could actually be between 6.72 and 7.28 if measured by a reference method. A reported value of 9.0 could actually be between 8.73 and 9.27. Ref: http://www.ngs p.org/CAPdata. asp Ordering Provider: TRINH FRANCO Report Released Date/Time: Jan 12, 2024 03:18 PM Reporting Lab: [address] [address] Performing Lab: [address] [address] HEMOGLOBIN A1C 4.6 4.0-5.6 Jan 12, 2024 03:32 PM [facility] TSH Specimen Type: SERUM No comment entered. Ordering Provider: TRINH FRANCO Report Released Date/Time: Jan 12, 2024 03:18 PM Reporting Lab: [address] [address] Performing Lab: [address] [address] TSH 1.67 u[IU]/mL 0.35-5.00 Advance Directives: All historical and current Section Date Range: From patient's date of to the date document was created. This section includes ALL of a patient's completed or amended [place] Advance and Rescinded Directives. The entries below indicate that a directive exists for the patient, but an actual copy is not included with this document. The data comes from all [place] facilities. Date Advance Directives Provider Source Mar 25, 2023 ADVANCE DIRECTIVE PETROS MOTLEY [facility] Encounter Notes: All associated encounter notes This section contains the clinical notes associated to the Encounter. Date/Time Encounter Note(s) Provider Source Jan 13, 2024 07:43 AM ADMINISTRATIVE NOT E: LOCAL TITLE: ADMINISTRATIVE NOTE STANDARD TITLE: ADMINISTRATIVE NOTE DATE OF NOTE: JAN 13, 2024@07:43 ENTRY DATE: JAN 13, 2024@07:43:51 AUTHOR: KAYLA FIELD EXP COSIGNER: URGENCY: STATUS: COMPLETED ADMINISTRATIVE NOTE Has ADDENDA PCP requested JOSE R from [facility] for PAP, Mammo, recent office notes and labs. Fax sent, confirmation received. /mat/ KAYLA FIELD Advanced Cross Cut Sawyer Signed: 01/13/2024 07:45 01/13/2024 ADDENDUM STATUS: COMPLETED Also requested records from [facility] for Radiology reports, office visit notes. Fax sent, confirmation received. /mat/ KAYLA FIELD Advanced Cross Cut Sawyer Signed: 01/13/2024 07:47 KAYLA FIELD [place] [facility]
--- OUTSIDE RECORDS SUMMARY | 2024-06-15 10:48 | XMS_ITS | Encounter Summary ---
Author Name Department of Vetera Affairs ([place]) Organization [facility] of [facility] ([place]) Address [address] [place] [address] Care Team Providers Care Manager Psychiatry Name Role Phone TRINH FRANCO Primary Care [...] Relationship to Policy Gibson CAREMARK PRESCRIPT ION [facility] Dec 21, 2022 [id number] Jelani ALVAREZ PATIENT [employer] ([id number]) PRESCRIPT ION GIC Jun 07, 2022 [id number] [phone] Jelani ALVAREZ PATIENT [facility] CE ORGANIZAT ION [facility] Jun 07, 2022 [id number] [phone] Jelani ALVAREZ PATIENT Selected Encounter This section includes the information on record at [place] for the Encounter. Date/Time Encounter Type Encounter Description Reason Pro vider Source November 03, 2023 03:16 PM Outpatient Encounter PRIMARY CARE/MEDICINE IHE Encounter Template Text not used by VA Plan of Treatment: Future Appointments (+ 6 months) and Future Tests (+/- 45 days) The Plan of Treatment section includes future care activities for the patient from all [place] [facility]. This section includes future appointments and future orders which are active, pending or scheduled. Future Appointments This section includes appointments that were scheduled to occur 6 months from the date of the Encounter, up to a maximum of 20 appointments. The data comes from all [facility]. Appointment Date/Time Appointment Type Appointme nt Facility Name Jan 12, 2024 02:30 PM AMBULATORY MEDICINE [facility] Jan 16, 2024 11:00 AM AMBULATORY - REHAB [facility] Jan 22, 2024 09:15 AM [facility] Jan 28, 2024 09:00 AM AMBULATORY [facility] Feb 25, 2024 09:30 AM AMBULATORY - REHAB [facility] Feb 27, 2024 01:30 PM [facility] Mar 09, 2024 08:45 AM [facility] Apr 16, 2024 11:00 AM AMBULATORY PSYCHIATRY [facility] Advance Directives: All historical and current Section Date Range: From patient's date of to the date document was created. This section includes ALL of a patient's completed or amended [place] Advance and Rescinded Directives. The entries below indicate that a directive exists for the patient, but an actual copy is not included with this document. The data comes from all [facility]. Date Advance Directives Provider Source Mar 25, 2023 ADVANCE DIRECTIVE [facility] Encounter Notes: All associated encounter notes This section contains the clinical notes associated to the Encounter. Date/Time Encounter Note(s) Provider Source November 03, 2023 03:16 PM PRIMARY CARE SECURE MESSAGING: LOCAL TITLE: PRIMARY CARE SECURE MESSAGING STANDARD TITLE: PRIMARY CARE SECURE MESSAGING DATE OF NOTE: NOVEMBER 03, 2023@15:16 ENTRY DATE: NOVEMBER 03, 2023@16:16:41 AUTHOR: SHAAN INGRAM COSIGNER: URGENCY: STATUS: COMPLETED PRIMARY CARE SECURE MESSAGING Has ADDENDA ------Original Message ------ Sent: 11/03/2023 02:39 PM ET From: JAYLAN ALVAREZ To: Tracie GUERRERO,_PRIMARYCARE_SPOPC Subject: General:Referral Good afternoon, I am following up on this referral for fbi sharpshooter. I don't think I have received one yet. Although I did have an appointment with my current fbi sharpshooter (Dr. Sheffield) which I was not aware of, if that is the case I need a referral to a different fbi sharpshooter at a different group since I am looking for a second opinion. /mat/ MARY INGRAM ADVANCED MAIL CLERKS SUPERVISOR Signed: 11/03/2023 16:16 Receipt Acknowledged By: 11/05/2023 14:57 /mat/ CAROLYNN CINTRON RN-BC REGISTERED NURSE 11/05/2023 ADDENDUM STATUS: COMPLETED Reply sent to via secure message /CAROLYNN Eckert RN-BC REGISTERED NURSE Signed: 11/05/2023 15:04 SHAAN INGRAM [place] CNTRL [facility]
--- OUTSIDE RECORDS SUMMARY | 2024-06-15 10:48 | XMS_ITS | Encounter Summary ---
Author Name [facility] ([place]) Organization [facility] ([place]) Address [address] [place] [address] Care Team Providers Care Dealmaker Name Role Phone TRINH FRANCO Primary Care [...] Relationship to Policy Gibson CAREMARK PRESCRIPT ION [facility] Dec 21, 2022 [id number] [phone] Jelani ALVAREZ PATIENT [facility] ([id number]) PRESCRIPT ION [facility] Jun 07, 2022 [id number] Jelani ALVAREZ PATIENT [facility] CE ORGANIZAT ION [facility] Jun 07, 2022 [id number] [phone] Jelani ALVAREZ PATIENT Selected Encounter This section includes the information on record at [place] for the Encounter. Date/Time Encounter Type Encounter Description Reason Pro vider Source Dec 30, 2023 12:00 AM Outpatient Encounter EVENT (HISTORICAL) IHE Encounter Template Text not used by [facility] Plan of Treatment: Future Appointments (+ 6 months) and Future Tests (+/- 45 days) The Plan of Treatment section includes future care activities for the patient [facility] [place] [facility] This section includes future appointments and future orders which are active, pending or scheduled. Future Appointments This section includes appointments that were scheduled to occur 6 months from the date of the Encounter, up to a maximum of 20 appointments. The data comes from all [place] treatment facilities. Appointment Date/Time Appointment Type Appointme nt Facility Name Jan 12, 2024 02:30 PM [place]UL[place]ORY [place] [facility] Jan 16, 2024 11:00 AM AMBULATORY - REHAB [facility] Jan 22, 2024 09:15 AM [place] [facility] Jan 28, 2024 09:00 AM [place] [facility] Feb 25, 2024 09:30 AM AMBULATORY - REHAB [facility] Feb 27, 2024 01:30 PM AMBULATORY [place] [facility] [place] [facility] Mar 09, 2024 08:45 AM [place] [facility] Apr 16, 2024 11:00 AM AM[place]ULATORY [place] [facility] [place] [facility] May 06, 2024 01:00 PM AM[place]ULATORY [place] [facility] [place] [facility] May 14, 2024 11:00 AM AMBULATORY [place]RY [place] [facility] [place] [place] [facility] May 14, 2024 01:00 PM AMBULATORY - [place]RY [place] [facility] [place] [facility] May 28, 2024 01:00 PM AMBULATORY - [place]ATRY [place] [facility] [place] [facility] Jun 11, 2024 01:30 PM AMBULATORY - [place] [facility] [place] [facility] Jun 11, 2024 02:00 PM AMBULATORY - [place]RY [place] [facility] [place] [facility] Jun 15, 2024 10:45 AM AM[place]ULATORY [place] [facility] [place] [place] [facility] Jun 18, 2024 01:00 PM AMBULATORY - PS[place]ATRY [place] [facility] [place] [facility] Jun 25, 2024 01:00 PM AMBULATORY - [place] [facility] [place] [facility] Lab Results: +/- 30 days of the encounter This section includes the Chemistry and Hematology Lab Results on record with [place] for the patient. Radiology Reports and Pathology Reports are provided separately, in subsequent sections. Lab Results This section contains the Chemistry/Hematology Results that were resulted 30 days before or 30 daysafter the date of the Encounter. Date/Time Source Result Type Result - Unit Interpretation Reference Range Comment Jan 12, 2024 03:32 PM [facility] BASIC METABOLIC PANEL (non-fasting) Specimen Type: SERUM No comment entered. Ordering Provider: RTINH FRANCO Report Released Date/Time: Jan 12, 2024 03:18 PM Reporting Lab: [address] [address] Performing Lab: [address] [address] UREA NITROGEN 18 mg/dL 7-25 GLUCOSE 108 mg/dL H 65-100 SODIUM 136 mmol/L 135-145 POTASSIUM 4.4 mmol/L 3.5-5.0 CHLORIDE 103 mmol/L 100-110 CO2 27 meq/L 20-30 CREATININE, Serum 0.90 mg/dL 0.50-1.40 eGFR(CKD-EPI 2020) 81 mL/min >60 Jan 12, 2024 03:32 PM [facility] LIPID PANEL FASTING Specimen Type: SERUM No comment entered. Ordering Provider: TRINH FRANCO Report Released Date/Time: Jan 12, 2024 03:18 PM Reporting Lab: [address] [address] Performing Lab: [address] [address] CHOLESTEROL 200 mg/dL H TRIGLYCERIDE 64 mg/dL 0-150 LDL calculated 127 mg/dL 0-129 CHOL/HDL 3.3 HDL CHOLESTEROL 60 mg/dL 40-60 Jan 12, 2024 03:32 PM [facility] LIVER FUNCTION Specimen Type: SERUM No comment entered. Ordering Provider: TRINH FRANCO Report Released Date/Time: Jan 12, 2024 03:18 PM Reporting Lab: [address] [address] Performing Lab: [facility] [address] [facility] [address] PROTEIN,TOTAL 7.2 g/dL 6.0-8.3 ALBUMIN 3.8 g/dL 3.5-5.0 ALKALINE PHOSPHATASE 49 U/L 40-150 AST 15 U/L 5-34 ALT 18 U/L BILIRUBIN, TOTAL 0.8 mg/dL 0.2-1.2 Jan 12, 2024 03:32 PM [facility] CBC AND DIFF (AUTO) Specimen Type: BLOOD No comment entered. Ordering Provider: TRINH FRANCO Report Released Date/Time: Jan 12, 2024 03:18 PM Reporting Lab: [facility] [address] [facility] [address] Performing Lab: [facility] [address] [facility] [address] WBC 7.29 10*3/uL 4.50-11.00 RBC 3.82 10*6/uL [...] 10*3/uL 0.00-0.00 Jan 12, 2024 03:32 PM [facility] HEMOGLOBIN A1C PANEL Specimen Type: BLOOD Comment: [...] Jan 12, 2024 03:18 PM Reporting Lab: [facility] [address] [facility] [address] Performing Lab: [address] [address] HEMOGLOBIN A1C 4.6 4.0-5.6 Jan 12, 2024 03:32 PM [facility] TSH Specimen Type: SERUM No comment entered. Ordering Provider: TRINH FRANCO Report Released Date/Time: Jan 12, 2024 03:18 PM Reporting Lab: [facility] [address] [facility] [address] Performing Lab: [facility] [address] [facility] [address] TSH 1.67 u[IU]/mL 0.35-5.00 Advance Directives: All historical and current Section Date Range: From patient's date of to the date document was created. This section includes ALL of a patient's completed or amended [place] Advance and Rescinded Directives. The entries below indicate that a directive exists for the patient, but an actual copy is not included with this document. The data comes from all [place] facilities. Date Advance Directives Provider Source Mar 25, 2023 ADVANCE DIRECTIVE PETROS MOTLEY [facility] Encounter Notes: All associated encounter notes This section contains the clinical notes associated to the Encounter. Date/Time Encounter Note(s) Provider Source Dec 30, 2023 12:00 AM NONVA NOTE: LOCAL TITLE: NON-VA OUTPATIENT NOTES STANDARD TITLE: NONVA NOTE DATE OF NOTE: DEC 30, 2023 ENTRY DATE: JAN 15, 2024@13:26:21 AUTHOR: ZENIA AGUIAR EXP COSIGNER: URGENCY: STATUS: COMPLETED VistA Imaging - Scanned Document SCANNED DOCUMENT SIGNATURE NOT REQUIRED Electronically Filed: 01/15/2024 by: ZENIA HAM [place] [facility]
--- OUTSIDE RECORDS SUMMARY | 2024-06-15 10:48 | XMS_ITS | Encounter Summary ---
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 Name Role Phone TRINH FRANCO Primary Care Provider Lisa junior Insurance Providers: All historical and current Section [...] Relationship to Policy Gibson CAREMARK PRESCRIPT ION [facility] Dec 21, 2022 [id number] Jelani ALVAREZ PATIENT [facility] ([id number]) PRESCRIPT ION [facility] Jun 07, 2022 [id number] Jelani ALVAREZ PATIENT [facility] CE ORGANIZAT ION [facility] Jun 07, 2022 [id number] Jelani ALVAREZ PATIENT Selected Encounter This section includes the information on record at [place] for the Encounter. Date/Time Encounter Type Encounter Description Reason Provider Source Jan 16, 2024 11:00 AM SELF CARE MNGMENT TRAINING PHYSICAL THERAPY ICD-10-CM M84.472A Pathological fracture, left ankle, init encntr for fracture ISAURO COLEMAN Junior Encounter Template Text not used by [place] Assessments - Encounter Diagnoses This section includes the primary and secondary diagnoses documented for the Encounter. Date/Time Primary/Secondary Diagnosis Diagnosis Name Provider Source Jan 16, 2024 12:17 PM PRIMARY Pathological fracture, left ankle, init encntr for fracture KEN COLEMAN [facility] Plan of Treatment: Future Appointments (+ 6 months) and Future Tests (+/- 45 days) The Plan of Treatment section includes future care activities for the [facility] [place] [facility] This section includes future appointments and future orders which are active, pending or scheduled. Future Appointments This section includes appointments that were scheduled to occur 6 months from the date of the Encounter, up to a maximum of 20 appointments. The data comes from all [place] treatment facilities. Appointment Date/Time Appointment Type Appointme nt Facility Name Jan 22, 2024 09:15 AM AM[place]ULATORY [place] [facility] Jan 28, 2024 09:00 AM AMBULATORY - [place]ICINE [place] [facility] Feb 25, 2024 09:30 AM AMBULATORY - REHAB [facility] Feb 27, 2024 01:30 PM AMBULATORY - PS[place]CHIATRY [place] [facility] Mar 09, 2024 08:45 AM AMBULATORY - MEDICINE [place] [facility] Apr 16, 2024 11:00 AM AMBULATORY - PSYCHIATRY [place] [facility] [place] [place] [facility] May 06, 2024 01:00 PM AMBULATORY - MEDICINE [place] [facility] May 14, 2024 11:00 AM AMBULATORY - PS[place]CHIATRY [place] [facility] [place] [facility] May 14, 2024 01:00 PM AMBULATORY - PSYCHIATRY [place] [facility] [place] [facility] May 28, 2024 01:00 PM AMBULATORY - PSYCHIATRY [place] [facility] [place] [facility] Jun 11, 2024 01:30 PM AMBULATORY - PSYCHIATRY [place] [facility] [place] [facility] Jun 11, 2024 02:00 PM AMBULATORY - PSYCHIATRY [place] [facility] [place] [facility] Jun 15, 2024 10:45 AM AMBULATORY - MEDICINE [place] [facility] [place] [place] [facility] Jun 18, 2024 01:00 PM AMBULATORY - PSYCHIATRY [place] [facility] [place] [facility] Jun 25, 2024 01:00 PM [facility] Jul 02, 2024 01:00 PM [facility] Jul 09[facility] 2024 01:00 PM [facility] Jul 16, 2024 01:00 PM AMBULATORY - PSYCHIATRY [facility] Lab Results: +/- 30 days of the encounter This section includes the Chemistry and Hematology Lab Results on record with [place] for the patient. Radiology Reports and Pathology Reports are provided separately, in subsequent sections. Lab Results This section contains the Chemistry/Hematology Results that were resulted 30 days before or 30 daysafter the date of the Encounter. Date/Time Source Result Type Result - Unit Interpretation Reference Range Comment Jan 12, 2024 03:32 PM [facility] BASIC METABOLIC PANEL (non-fasting) Specimen Type: SERUM No comment entered. Ordering Provider: TRINH FRANCO Report Released Date/Time: Jan 12, 2024 03:18 PM Reporting Lab: [facility] [address] [facility] [address] Performing Lab: [facility] [address] [facility] [address] UREA NITROGEN 18 mg/dL 7-25 GLUCOSE 108 mg/dL H 65-100 SODIUM 136 mmol/L 135-145 POTASSIUM 4.4 mmol/L 3.5-5.0 CHLORIDE 103 mmol/L 100-110 CO2 27 meq/L 20-30 CREATININE, Serum 0.90 mg/dL 0.50-1.40 eGFR(CKD-EPI 2020) 81 mL/min >60 Jan 12, 2024 03:32 PM [facility] LIPID PANEL FASTING Specimen Type: SERUM No comment entered. Ordering Provider: TRINH FRANCO Report Released Date/Time: Jan 12, 2024 03:18 PM Reporting Lab: [facility] [address] [facility] [address] Performing Lab: [address] [address] CHOLESTEROL 200 mg/dL H TRIGLYCERIDE 64 mg/dL 0-150 LDL calculated 127 mg/dL 0-129 CHOL/HDL 3.3 HDL CHOLESTEROL 60 mg/dL 40-60 Jan 12, 2024 03:32 PM [facility] LIVER FUNCTION Specimen Type: SERUM No comment entered. Ordering Provider: TRINH FRANCO Report Released Date/Time: Jan 12, 2024 03:18 PM Reporting Lab: [address] [address] Performing Lab: [address] [address] PROTEIN,TOTAL 7.2 g/dL 6.0-8.3 ALBUMIN 3.8 g/dL 3.5-5.0 ALKALINE PHOSPHATASE 49 U/L 40-150 AST 15 U/L 5-34 ALT 18 U/L BILIRUBIN, TOTAL 0.8 mg/dL 0.2-1.2 Jan 12, 2024 03:32 PM [facility] CBC AND DIFF (AUTO) Specimen Type: BLOOD No comment entered. Ordering Provider: TRINH FRANCO Report Released Date/Time: Jan 12, 2024 03:18 PM Reporting Lab: [address] [address] Performing Lab: [address] [address] WBC 7.29 10*3/uL 4.50-11.00 RBC 3.82 10*6/uL [...] 10*3/uL 0.00-0.00 Jan 12, 2024 03:32 PM [facility] HEMOGLOBIN A1C PANEL Specimen Type: BLOOD Comment: [...] Jan 12, 2024 03:18 PM Reporting Lab: [facility] [address] [facility] [facility] [facility] [address] Performing Lab: [facility] [address] [facility] [facility] [address] HEMOGLOBIN A1C 4.6 4.0-5.6 Jan 12, 2024 03:32 PM [facility] TSH Specimen Type: SERUM No comment entered. Ordering Provider: TRINH FRANCO Report Released Date/Time: Jan 12, 2024 03:18 PM Reporting Lab: [facility] [address] [facility] [facility] [facility] [address] Performing Lab: [address] [address] TSH 1.67 u[IU]/mL 0.35-5.00 Social History: Smoking Status (Most current) and Tobacco Use (All prior to encounter date) This section includes the most current, and the historical, smoking and tobacco- related health factors from the [place] facility where the Encounter took place. Current Smoking Status This section includes the most current smoking, or tobacco-related health factor, from the [place] facility where the Encounter took place. Date/Time Current Smoking Status Comment Claudia tello Mar 18, 2023 09:00 AM VA-TOBACCO NEVER USED [facility] Advance Directives: All historical and current Section Date Range: From patient's date of to the date document was created. This section includes ALL of a patient's completed or amended [place] Advance and Rescinded Directives. The entries below indicate that a directive exists for the patient, but an actual copy is not included with this document. The data comes from all [place] facilities. Date Advance Directives Provider Source Mar 25, 2023 ADVANCE DIRECTIVE PETROS MOTLEY [facility] Encounter Notes: All associated encounter notes This section contains the clinical notes associated to the Encounter. Date/Time Encounter Note(s) Provider Source Jan 16, 2024 11:04 AM PHYSICAL THERAPY C ONSULT: [facility] TITLE: PHYSICAL THERAPY CONSULT STANDARD TITLE: PHYSICAL THERAPY CONSULT DATE OF NOTE: JAN 16, 2024@11:04 ENTRY DATE: JAN 16, 2024@11:04:38 AUTHOR: KEN COLEMAN COSIGNER: URGENCY: STATUS: COMPLETED Initial Evaluation date: 01/16/24 Progress Note Date: 02/16/24 Treatment #: eval Treatment time: 40 Diagnosis:Pathological Fracture, left Ankle, Initial Encounter for Fracture(ICD-10-CM M84.472A) Provider:TRINH FRANCO PT Treatment Precautions: Patient identified by full name and date of SUBJECTIVE: History of Current injury: Patient states they were getting out of their jeep 12/12/23, rolled their ankle out to the side and felt a pop and then had pain and swelling in the outside of the L ankle. Notes they went an got an x-ray the next day and was diagnosed with a displaced lateral malleolus fracture. Notes they have been RICE'ing. Saw Ortho at [facility] who recommended use of a boot. Patient is now out of boot and has transitioned to a lace up ankle brace. Currently only using the lace up ankle brace as need. Notes at their last ortho appt they got updated x- ray; was told the fracture remains displaced. Patient reports difficulty descending stairs, hiking and walking on uneven surfaces, martial arts. Notes they have begun to resume a lot of their normal exercise activities like biking, walking, martial arts, but is limiting their intensity. Patient reports their next appt with [facility] is january 26. 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 Patient Goal: learn what they can do to help rehab their ankle Number of days per week with pain: 12/27 SANE report Please rate your ability to use your injured area on a 0% to 100% scale, with 0% being unable to use the injured area and 100% being normal use of injured area in your daily activity: 80% OBJECTIVE: Red flags: Recent Trauma- Age (50+)- Hx of Cancer- Fever/chills/night sweats- Unexplained weight loss- Recent infection- Immunosuppression- Night pain- Saddle anesthesia- Bowel/bladder dysfunction- LE neurological deficit- Psychosocial flags: mental health dx+ entrenched/unhelpful beliefs about pain- clinically relevant catastrophization- signs of kinesiophobia- * = pain during testing ROM: Ankle Dorsiflexion L: 10 R: Ankle Plantarflexion L: 50* R: Ankle inversion L: 40 R: Ankle Eversion L: 20 R: Strength: Ankle DF L: 5/5 R: /5 Ankle DF L: 2+/5 R: /5 Ankle INV L: 4/5 R: /5 Ankle EV L: 4/5 R: /5 Palpation: min TTP distal lateral malleolus Joint Mobility: INTERVENTIONS: Therapeutic Exercise: Mins: Manual therapy: Mins: Neuro re-ed: Mins: Other: Mins: Modalities: Mins: [] contraindication screen completed prior to modality [] skin intact pre/post modality Access Code: [email or web address] URL: [email or web address] Date: 01/16/2024 Prepared by: Ken Coleman Exercises - Heel Raises with Counter Support - 1 x daily - 7 x weekly - 2-3 sets - 10-20 reps - Toe Raises with Counter Support - 1 x daily - 7 x weekly - 2-3 sets - 10-20 reps - Clamshell with Resistance - 1 x daily - 7 x weekly - 2-3 sets - 10-20 reps - Side Stepping with Resistance at Ankles - 1 x daily - 7 x weekly - 2-3 sets - 10-20 reps - Single Leg Stance on Foam Pad - 1 x daily - 7 x weekly - 3-5 sets - 30 hold - Long Sitting Ankle Inversion with Resistance - 1 x daily - 7 x weekly - 2-3 sets - 15-25 reps - Long Sitting Ankle Eversion with Resistance - 1 x daily - 7 x weekly - 2-3 sets - 15-25 reps Patient education: Mins: 20 Discussed potential etiology of symptoms with patient including potential structures involved and how this relates to exercises prescribed and POC discussing frequency and duration of services to be provided with patient verbalizing good understanding and agreement with POC. Provided written HEP to patient with therex from today reviewing proper form sets reps and frequency and safety precautions with patient verbalizing and demonstrating good understanding in clinic. Discussed typical rates of tissue healing for muscles tendons and bones. Discussed importance of avoiding any high intesity activities, avoiding any activity that involves impact. Advised slow progression of activity focusing more in light cardiovascular exercise, less on martial arts. ASSESSMENT: Patient is a 43yo seen for physical therapy evaluation following referral for L ankle fx. PMH significant for Exposure to potentially hazardous substance, Blood in stool, History of dysthymia, HTN - Hypertension, Vitamin D Deficiency, GERD - Gastro-Esophageal Reflux Disease, Allergic Rhinitis, History of nephrolithiasis, - Ankylosing spondylitis. Patient presents with primary complaint of L anterior/lateral ankle pain after forceful L ankle inversion getting out of their jeep resulting in displaced L lateral malleolus fracture. Pain rated 0/10 at current and at best, 5/10 at worst on NPRS. Primary aggravating factors include descending stairs, hiking and walking on uneven surfaces, martial arts. On physical assessment, patient present with normal L ankle ROM, some mild pain into plantarflexion ROM. IMpaired L ankle strength noted in plantarflexion, inversion, eversion. Today, provided education for tissue healing times and activities to modify or avoid, as well as guidelines for activity progression. Also provided written HEP for carryover at home. Patient verbalizes good understanding of education provided today. Patient reports these symptoms impact their ability to complete their normal daily tasks descending stairs, hiking and walking on uneven surfaces, martial arts. Patient requires skilled physical therapy services in order to address these impairments ad activity limitations and to achieve patient goal of learn what they can do to help rehab their ankle . GOALS: in 4-6weeks, patient will demonstrate: consistent carryover of HEP 5/7 days per week with patient able to independently teach back 75% of exercises 2pt decrease in pain level at worst to improve patient ability to complete most symptomatic tasks 10% improvement on SANE score to improve patient ability to complete typical daily tasks decrease in total days with pain by 2 days to improve patient QOL 10deg improvement in L ankle DF ROM 1/2 grade improvement in L ankle EV MMT 1/2 grade improvement in L ankle INV MMT full grade improvement in L ankle PF MMT PLAN: Discussed POC with patient who verbalizes agreement with skilled PT services focusing on progressive ankle and hip strengthening, LE flexibility, HPE teaching and progression, education regarding activity progression. Follow up in 4 weeks. [x]Low impact cardio: [x]Nustep []Recumbent bike []Recumbent elliptical []TM []Manual: []STM/DTM []METs/SCS []IASTM []Joint mobilizations [x]Therex: []Progressive UQ [x]Progressive Core [x]Progressive LQ []UQ flex [] Lumbar flex [x]LQ flex [x]Foam rolling [x]Proprioception []Neuro Re-education: []Static []Dynamic []Dual-Task [x]Education: []Posture []Ergonomics [x]Bodymechanics [x]Self-care strategies [] PNE []Modalities(PRN): []Heat/Ice []Estim/Tens []Mechanical traction []K-tape [] Biofreeze /es/ KEN COLEMAN PT, DPT PHYSICAL THERAPIST Signed: 01/16/2024 12:17 KEN COLEMAN [facility]
--- OUTSIDE RECORDS SUMMARY | 2024-06-15 10:48 | XMS_ITS | Encounter Summary ---
Author Name [facility] [place] [facility] [facility] [place] Address [address] [place] [address] Care Team Providers Care Sweep Molder Name Role Phone JAYDE FRANCO Primary Care Provider Unavailabl e Insurance [...] Relationship to Policy Gibson [facility] Dec 21, 2022 [id number] Jelani ALVAREZ PATIENT [employer] ([id number]) PRESCRIPT ION GIC Jun 07, 2022 [id number] Jelani ALVAREZ PATIENT [facility] CE ORGANIZAT ION [facility] [employer] Y Jun 07, 2022 [id number] Jelani ALVAREZ PATIENT Selected Encounter This section includes the information on record at [place] for the Encounter. Date/Time Encounter Type Encounter Description Reason Provider Source Jan 12, 2024 02:30 PM OFFICE O/P EST MOD 30 MIN PRIMARY CARE/MEDICINE ICD-10-CM I10 Essential (primary) hypertension JAYDE FRANCO E Encounter Template Text not used by [place] Assessments - Encounter Diagnoses This section includes the primary and secondary diagnoses documented for the Encounter. Date/Time Primary/Secondary Diagnosis Diagnosis Name Provider Source Jan 12, 2024 03:33 PM PRIMARY Essential (primary) hypertension JAYDE FRANCO [facility] [place] [facility] Jan 12, 2024 03:33 PM SECONDARY Allergic rhinitis, unspecified SALVADORJAYDE VALERA [facility] [place] [facility] Jan 12, 2024 03:33 PM SECONDARY Ankylosing spondylitis of unspecified sites in spine SALVADORJAYDE VALERA [facility] [place] [facility] Jan 12, 2024 03:33 PM SECONDARY Personal history of urinary calculi JAYDE FRANCO [facility] [place] [facility] Jan 12, 2024 03:33 PM SECONDARY Post-traumatic stress disorder, unspecified SALVADORJAYDE VALERA [facility] [place] [facility] Plan of Treatment: Future Appointments (+ 6 months) and Future Tests (+/- 45 days) The Plan of Treatment section includes future care activities for the patient [facility] [place] [facility] This section includes future appointments and future orders which are active, pending or scheduled. Future Appointments This section includes appointments that were scheduled to occur 6 months from the date of the Encounter, up to a maximum of 20 appointments. The data comes from all [place] treatment facilities. Appointment Date/Time Appointment Type Appointme nt Facility Name Jan 16, 2024 11:00 AM AMBULATORY - REHAB [facility] Jan 22, 2024 09:15 AM AMBULATORY - MEDICINE DE [facility] [place] [facility] Jan 28, 2024 09:00 AM AMBULATORY - MEDICINE DE [facility] [place] [facility] Feb 25, 2024 09:30 AM AMBULATORY - RE[facility]AB [facility] Feb 27, 2024 01:30 PM AMBULATORY - PSYCHIATRY [facility] [place] [facility] Mar 09, 2024 08:45 AM AMBULATORY - MEDICINE DE [facility] [place] [facility] Apr 16, 2024 11:00 AM AMBULATORY - PSYCHIATRY [facility] [place] [facility] May 06, 2024 01:00 PM AMBULATORY - MEDICINE DE [facility] [place] [facility] May 14, 2024 11:00 AM AMBULATORY - PSYCHIATRY [facility] [place] [facility] May 14, 2024 01:00 PM AMBULATORY - PSYCHIATRY [facility] [place] [facility] May 28, 2024 01:00 PM AMBULATORY - PSYCHIATRY [facility] [place] [facility] Jun 11, 2024 01:30 PM AMBULATORY - PSYCHIATRY [facility] [place] [facility] Jun 11, 2024 02:00 PM AMBULATORY - PSYCHIATRY [facility] [place] [facility] Jun 15, 2024 10:45 AM AMBULATORY - MEDICINE DE [facility] [place] [facility] Jun 18, 2024 01:00 PM AMBULATORY - PSYCHIATRY [facility] [place] [facility] Jun 25, 2024 01:00 PM AMBULATORY - PSYCHIATRY [facility] [place] [facility] Jul 02, 2024 01:00 PM AMBULATORY - PSYCHIATRY [facility] [place] [facility] Jul 09, 2024 01:00 PM [facility] Lab Results: +/- 30 days of the encounter This section includes the Chemistry and Hematology Lab Results on record with [place] for the patient. Radiology Reports and Pathology Reports are provided separately, in subsequent sections. Lab Results This section contains the Chemistry/Hematology Results that were resulted 30 days before or 30 daysafter the date of the Encounter. Date/Time Source Result Type Result - Unit Interpretation Reference Range Comment Jan 12, 2024 03:32 PM [facility] BASIC METABOLIC PANEL (non-fasting) Specimen Type: SERUM No comment entered. Ordering Provider: JAYDE FRANCO Report Released Date/Time: Jan 12, 2024 03:18 PM Reporting [facility]: [facility] [address] [address] Performing Lab: [facility] [address] [address] UREA NITROGEN 18 mg/dL 7-25 GLUCOSE 108 mg/dL H 65-100 SODIUM 136 mmol/L 135-145 POTASSIUM 4.4 mmol/L 3.5-5.0 CHLORIDE 103 mmol/L 100-110 CO2 27 meq/L 20-30 CREATININE, Serum 0.90 mg/dL 0.50-1.40 eGFR(CKD-EPI 2020) 81 mL/min >60 Jan 12, 2024 03:32 PM [facility] LIPID PANEL FASTING Specimen Type: SERUM No comment entered. Ordering Provider: JAYDE FRANCO Report Released Date/Time: Jan 12, 2024 03:18 PM Reporting Lab: [address] [address] Performing Lab: [address] [address] CHOLESTEROL 200 mg/dL H TRIGLYCERIDE 64 mg/dL 0-150 LDL calculated 127 mg/dL 0-129 CHOL/HDL 3.3 HDL CHOLESTEROL 60 mg/dL 40-60 Jan 12, 2024 03:32 PM [facility] LIVER FUNCTION Specimen Type: SERUM No comment entered. Ordering Provider: JAYDE FRANCO Report Released Date/Time: Jan 12, 2024 03:18 PM Reporting Lab: [address] [address] Performing Lab: [address] [address] PROTEIN,TOTAL 7.2 g/dL 6.0-8.3 ALBUMIN 3.8 g/dL 3.5-5.0 ALKALINE PHOSPHATASE 49 U/L 40-150 AST 15 U/L 5-34 ALT 18 U/L BILIRUBIN, TOTAL 0.8 mg/dL 0.2-1.2 Jan 12, 2024 03:32 PM [facility] CBC AND DIFF (AUTO) Specimen Type: BLOOD No comment entered. Ordering Provider: JAYDE FRANCO Report Released Date/Time: Jan 12, 2024 03:18 PM Reporting Lab: [address] [address] Performing Lab: [address] [address] WBC 7.29 10*3/uL 4.50-11.00 RBC 3.82 10*6/uL [...] 10*3/uL 0.00-0.00 Jan 12, 2024 03:32 PM [facility] HEMOGLOBIN A1C PANEL Specimen Type: BLOOD Comment: Values obtained from A1C measurements can vary. For atypical A1C assays, a reported value of 7.0 could actually be between 6.72 and 7.28 if measured by a reference method. A reported value of 9.0 could actually be between 8.73 and 9.27. Ref: http://www.ngs p.org/CAPdata. asp Ordering Provider: JAYDE FRANCO Report Released Date/Time: Jan 12, 2024 03:18 PM Reporting Lab: [address] [address] Performing Lab: [address] [address] HEMOGLOBIN A1C 4.6 4.0-5.6 Jan 12, 2024 03:32 PM [facility] TSH Specimen Type: SERUM No comment entered. Ordering Provider: JAYDE FRANCO Report Released Date/Time: Jan 12, 2024 03:18 PM Reporting Lab: [facility] [address] [address] Performing Lab: [facility] [address] [address] TSH 1.67 u[IU]/mL 0.35-5.00 Vital Signs: All taken on the encounter date This section contains inpatient and outpatient Vital Signs collected on the date of the Encounter. Date/Time Temperature Pulse Blood Pressure Respiratory Rate SP02 Pain Height Weight Body Mass Index Source Jan 12, 2024 02:25 PM 99.2 83 124/88 16 95 2 61 133 25 [facility] Advance Directives: All historical and current Section Date Range: From patient's date of to the date document was created. This section includes ALL of a patient's completed or amended [place] Advance and Rescinded Directives. The entries below indicate that a directive exists for the patient, but an actual copy is not included with this document. The data comes from all [place] facilities. Date Advance Directives Provider Source Mar 25, 2023 ADVANCE DIRECTIVE [facility] Encounter Notes: All associated encounter notes This section contains the clinical notes associated to the Encounter. Date/Time Encounter Note(s) Provider Source Jan 15, 2024 01:31 PM [facility] DIALOG NOTE: LOCAL TITLE: [place] STANDARD TITLE: [facility] DIALOG NOTE DATE OF NOTE: JAN 15, 2024@13:31 ENTRY DATE: JAN 15, 2024@13:31:08 AUTHOR: JAYDE FRANCO EXP COSIGNER: URGENCY: STATUS: COMPLETED Hi Jaylan, All your blood work looks great! HGB A1C (WR): 4.6 WBC: 7.29 RBC: 3.82 HGB: 12.6 HCT: 36.7 MCV: 96.1 MCHC: 34.3 RDW: 11.7 PLT: 308 MCH: 33.0 Neut %: 57.7 Lymph %: 27.8 Bell %: 11.8 Eos %: 1.9 Baso %: 0.4 Neut, Abs: 4.20 Lymph, Abs: 2.03 Bell, Abs: 0.86 Eos, Abs: 0.14 Baso, Abs: 0.03 Immature Granulocytes %: 0.4 Immature Granulocytes, Abs: 0.03 NRBC%: 0.0 NRBC#: 0.00 TSH (Access): 1.67 GLUCOSE: 108 UREA NITROGEN: 18 SODIUM: 136 POTASSIUM: 4.4 CHLORIDE: 103 CO2: 27 CHOLESTEROL: 200 PROTEIN,TOTAL: 7.2 ALBUMIN: 3.8 ALKALINE PHOSPHATASE: 49 SGOT: 15 SGPT: 18 TRIGLYCERIDE: 64 LDL CHOL: 127 CHOL/HDL RATIO: 3.3 HDL: 60 BILIRUBIN,TOT.: 0.8 CREATININE-EGFR: 0.90 eGFR CKD-EPI 2020: 81 Below are a listing of upcoming appointments you have scheduled at [facility]: 01/16/2024 11:00 CWM/SO/PHYSICAL THERAPY C 01/18/2025 09:00 CWM/NO/PACT 5 If you have any questions please let me know otherwise see you at your next scheduled visit. Sincerely, CLAUDIA Cast Family Nurse Practitioner Women's Health & PACT 5 Primary Care [facility] [address] [address] [place] [address] [phone] [facility] [address] [place] [address] [place] [address] /mat/ CLAUDIA DE LOS SANTOS Nurse Practitioner Signed: 01/15/2024 13:32 Receipt Acknowledged By: 01/15/2024 21:40 /es/ AUDREY DESHPANDE, MSN, RN, CNL PRIMARY CARE TEAM NURSE [facility] FRANCO [facility] Jan 12, 2024 02:33 PM PRIMARY CARE NURSE PRACTITIONER OUTPATIENT NOTE: LOCAL TITLE: NURSE PRACTITIONER OUTPATIENT NOTE STANDARD TITLE: PRIMARY CARE NURSE PRACTITIONER OUTPATIENT NOTE DATE OF NOTE: JAN 12, 2024@14:33 ENTRY DATE: JAN 12, 2024@14:33:42 AUTHOR: JAYDE FRANCO EXP COSIGNER: URGENCY: STATUS: COMPLETED Chief complaint: Pt is a 43 who comes in for follow up of medical problems as noted below. HPI: - Ankylosing spondylitis follows with rheum wants to come here for care and expertise, on Enbrel for about 20 years and Celebrex as needed which is rare Fracture left ankle while getting out of her Jeep, out of work for at least a few weeks, going back to work. Lateral malleolus non displaced was put in walking boot, following with ortho and working with PT has appt next week to get cleared to go back to work. Going through [employer] ortho. HTN in the past she feels like it was when she was on OCPs, no longer on OCPs and does not want to be since then no issues with BP GERD and diarrhea, started seeing GI and was referred for Colonoscopy for stool urgency 2 years ago went to ER had colitis she had CT scan showing colitis will happen the referral was placed by Dr Javier. Sees Stephania Du. Takes Cromolyn BID with meals Having allergy testing done through [facility]. Takes daily Joselin wants referral from us Kidney stones, she reports chronic and follows with Dr Cervantes also with cystic kidneys as well also having stones also gets chronic UTIs and was told GFR mildly low in past never saw renal PTSD depression had been seeing online. She was on also tried Lexapro made her too tired so was then switched to Wellbutrin and she felt like heart rate was too high on that med SURGICAL HISTORY: C section -05/2009 b/l breast implants - 07/2019 FAMILY HISTORY: mother- alive -HTN, HLD, DM type 2, Kidney stones father- alive- HTN, HLD Maternal grandmother breast cancer, kidney stones SOCIAL HISTORY: single with 2 children Smoking denies Drugs denies Alcohol denies PMH: Active problems - Computerized Problem List is the source for the followin. Exposure to potentially hazardous substance Connect Snomed Code to ICD 10 Code refer to note dated 03/25/23 2. Blood in stool 3. History of dysthymia 4. HTN - Hypertension (SCT 50642010) 5. Vitamin D Deficiency (SCT 15916785) 6. GERD - Gastro-Esophageal Reflux Disease ([facility] [id number]) 7. Allergic Rhinitis ([facility] [id number]) 8. History of nephrolithiasis 9. - Ankylosing spondylitis Allergies: Patient has answered NKA The following VA and Non-VA meds were reconciled with patient: Active and Recently Outpatient Medications (excluding Supplies): Active Non-VA Medications Status 1) Non-VA CEPHALEXIN 500MG CAP 500MG BY MOUTH TWICE ACTIVE DAILY 2) Non-VA CHOLECALCIF 10MCG/ML (D3-400UNT/ML) DROP 1ML ACTIVE (10MCG) BY MOUTH ONCE DAILY 3) Non-VA ETANERCEPT 25MG/0.5ML INJ SYRINGE 25MG ACTIVE SUBCUTANEOUSLY ON FRIDAY Allergies: Patient has answered NKA VITAL SIGNS: 99.2 F [37.3 C] (01/12/2024 14:25) 83 (01/12/2024 14:25) 16 (01/12/2024 14:25) 124/88 (01/12/2024 14:25) 2 (01/12/2024 14:25) 61 in [154.9 cm] (01/12/2024 14:25) 133 lb [60.33 kg] (01/12/2024 14:25) BMI: 25.2 ROS General: no fever, no unexplained weight loss or gain CV: denies CP, SOB, palpitations Lung: denies Dyspnea, cough, wheezing Breast: denies discharge, lumps or pain : denies vaginal pain, discharge, pruritis Ext: denies edema, weakness, falls Skin: denies rash or other lesions Psych: denies SI PHYSI FADI EXAM General: No acute distress, speech is clear, forming sentences. CV: S1S2, RRR, no m/r/g Lung: CTAB, no wheeze, rhonchi, or crackles, good breath sounds to bases b/l Ext: no edema, warm and well perfused bilat. Skin: no lesions or rashes NEURO CN II-XII grossly intact, gait steady without shuffle MENTAL A&Ox3 Appropriate, Pleasant, Cooperative LAB RESULTS LAST 1440 HRS - NONE FOUND Future Clinic Visits 01/16/2024 11:00 CWM/SO/PHYSICAL THERAPY C ASSESSMENT AND PLAN: #Ankylosing spondylitis -Cont Enbrel as rx'd by Rheum -Celebrex PRN #HTN -BP stable at this time -Cont to monitor #diarrhea -Started Cromolyn and follows with GI at [place], referral placed #[facility]ergies -[facility] -Cont daily Joselin = #Kidney stones -Follows with urology -Monitor renal function #PTSD -depression, would like to reseatblished with MH -Denies SI knows crisis and WIC Return to clinic to see me in 12 months, RTC sooner if needed. Clinical Reminders Hepatitis C Testing: Patient declines HCV lab test. /Intentions/Contr aception: The patient is medically able to conceive. The patient states that they are not . An automated review of this patient's chart indicates the following order is potentially harmful: Orderable Item Status Start Stop NON-VA OUTSIDE STUDY PENDING 02/12/2024 Action following medication review: Counseling not indicated at this time Patient previously counseled regarding risks/benefits of medication(s) The patient does not desire within the next year. The patient is doing nothing to prevent . Folic Acid for Women 18-46: Patient declines Folic Acid at this time Medication Reconciliation: Outpatient: Has the patient been taking medications as documented in the EMLR? YES: The patient has been taking medications as documented in the EMLR. Essential Medication List for Review used to complete this medication reconciliation. INCLUDED IN THIS LIST: Alphabetical list of active outpatient prescriptions dispensed from this [place] (local) and dispensed from another [place] or DoD facility (remote) as well as inpatient orders (local, pending and active), local clinic medications, locally documented non-VA medications, and local prescriptions that have or been discontinued in the past 90 days. - All changes in medications, including all non-VA/Herbal/OTC medications were entered into CPRS. - If there were any medications the patient should no longer take, they were discontinued. - The patient/caregiver was instructed to update this list, discard old lists, and take this list to the next appointment, whether with a VA or non-VA provider. Follow-Up Pos PTSD/Depression: I have reviewed the results of the Mental Health screens and have evaluated the patient. Based on the evaluation, the following disposition plan will be implemented: Patient to be evaluated by Mental Health Routine/Non-emergent Mental Health Evaluation needed. /mat/ CLAUDIA DE LOS SANTOS Nurse Practitioner Signed: 01/12/2024 15:32 JAYDE FRANCO [facility] [place] [facility] Jan 12, 2024 02:27 PM PREVENTIVE MEDICINE NURSING NOTE: LOCAL TITLE: CLINICAL REMINDERS/NURSING STANDARD TITLE: PREVENTIVE MEDICINE NURSING NOTE DATE OF NOTE: JAN 12, 2024@14:27 ENTRY DATE: JAN 12, 2024@14:27:49 AUTHOR: GABI HERNANDEZ EXP COSIGNER: URGENCY: STATUS: COMPLETED PTSD Screening: PC-PTSD-5 A PTSD screening test (PC-PTSD-5) was positive (score=5). IN THE PAST MONTH, have you ever had any experience that was so frightening, horrible or traumatic. For example: A serious accident or fire a physical or sexual assault or abuse An earthquake or flood A war Seeing someone be killed or seriously injured Having a loved one through homicide or suicide 1. Have you ever experienced this kind of event? YES 2. Had nightmares about the event(s) or thought about the event(s) when you did not want to? YES 3. Tried hard not to think about the event(s) or went out of your way to avoid situations that reminded you of the event(s)? YES 4. Been constantly on guard, watchful, or easily startled? YES 5. [place] numb or detached from people, activities, or your surroundings? YES 6. [place] guilty or unable to stop blaming yourself or others for the event(s) or any problems the event(s) may have caused? YES Licensed Independent Provider notified of positive screen and need for follow-up. Name of provider notified: Jayde murry/ GABI HERNANDEZ LPN License Practical Nurse Signed: 01/12/2024 14:29 G[facility] HER[facility]NDEZ [facility]
--- OUTSIDE RECORDS SUMMARY | 2024-06-15 10:48 | XMS_ITS | Encounter Summary ---
Author Name [facility] [place] ([place]) Organization [facility] ([place]) Address [address] [place] [address] Care Team Providers Care Rod Mill Tender Name Role Phone JAYDE FRANCO Primary Care [...] Relationship to Policy Gibson CAREMARK PRESCRIPT ION [facility] Dec 21, 2022 [id number] Jelani ALVAREZ PATIENT [facility] ([id number]) PRESCRIPT ION [facility] Jun 07, 2022 [id number] Jelani ALVAREZ PATIENT [facility] ORGAN[facility] Jun 07, 2022 [id number] Jelani ALVAREZ PATIENT Selected Encounter This section includes the information on record at [place] for the Encounter. Date/Time Encounter Type Encounter Description Reason Provider Source Jan 01, 2024 08:25 AM Outpatient Encounter PRIMARY CARE/MEDICINE AUDREY DESHPANDE IHE Encounter Template Text not used by [facility] Plan of Treatment: Future Appointments (+ 6 months) and Future Tests (+/- 45 days) The Plan of Treatment section includes future care activities for the patient from all [place] [facility] This section includes future appointments and future [...] 12, 2024 02:30 PM AM[place]ULATORY [place]IC[place] [facility] Jan 16, 2024 11:00 AM AMBULATORY - REHAB [facility] Jan 22, 2024 09:15 AM [place]ORY [place] [facility] Jan 28, 2024 09:00 AM AM[place]ORY [place] [facility] Feb 25, 2024 09:30 AM AMBULATORY - REHAB [facility] Feb 27, 2024 01:30 PM AMBULATORY - PS[place]CHIATRY [facility] Mar 09, 2024 08:45 AM [place]ULATORY [place] [facility] Apr 16, 2024 11:00 AM AMBULATORY - PS[facility]CHIATRY [facility] May 06, 2024 01:00 PM AM[place]ULATORY [place] [facility] May 14, 2024 11:00 AM AMBULATORY - PS[facility]CHIATRY [facility] May 14, 2024 01:00 PM AMBULATORY - PS[facility]CHIATRY [facility] May 28, 2024 01:00 PM AMBULATORY - PS[facility]CHIATRY [facility] Jun 11, 2024 01:30 PM AMBULATORY - PS[facility]CHIATRY [facility] Jun 11, 2024 02:00 PM AMBULATORY - PS[facility]CHIATRY [facility] Jun 15, 2024 10:45 AM AMBULATORY - MEDICINE [place] [facility] Jun 18, 2024 01:00 PM AMBULATORY - PSYCHIATRY [facility] Jun 25, 2024 01:00 PM AMBULATORY - PS[facility]CHIATRY [facility] Jul 02, 2024 01:00 PM AMBULATORY - [facility]RY [facility] Lab Results: +/- 30 days of the encounter This section includes the Chemistry and Hematology Lab Results on record with [place] for the patient. Radiology Reports and Pathology Reports are provided separately, in subsequent sections. Lab Results This section contains the Chemistry/Hematology Results that were resulted 30 days before or 30 daysafter the date of the Encounter. Date/Time Source Result Type Result - Unit Interpretation Reference Range Comment Jan 12, 2024 03:32 PM [facility] BASIC METABOLIC PANEL (non-fasting) Specimen Type: SERUM No comment entered. Ordering Provider: JAYDE FRANCO Report Released Date/Time: Jan 12, 2024 03:18 PM Reporting Lab: [address] [address] Performing Lab: [address] [address] UREA NITROGEN 18 mg/dL 7-25 GLUCOSE 108 mg/dL H 65-100 SODIUM 136 mmol/L 135-145 POTASSIUM 4.4 mmol/L 3.5-5.0 CHLORIDE 103 mmol/L 100-110 CO2 27 meq/L 20-30 CREATININE, Serum 0.90 mg/dL 0.50-1.40 eGFR(CKD-EPI 2020) 81 mL/min >60 Jan 12, 2024 03:32 PM [facility] LIPID PANEL FASTING Specimen Type: SERUM No comment entered. Ordering Provider: JAYDE FRANCO Report Released Date/Time: Jan 12, 2024 03:18 PM Reporting Lab: [address] [address] Performing Lab: [address] [address] CHOLESTEROL 200 mg/dL H TRIGLYCERIDE 64 mg/dL 0-150 LDL calculated 127 mg/dL 0-129 CHOL/HDL 3.3 HDL CHOLESTEROL 60 mg/dL 40-60 Jan 12, 2024 03:32 PM [facility] LIVER FUNCTION Specimen Type: SERUM No comment entered. Ordering Provider: JAYDE FRANCO Report Released Date/Time: Jan 12, 2024 03:18 PM Reporting Lab: [facility] [address] [facility] [address] Performing Lab: [facility] [address] [facility] [address] PROTEIN,TOTAL 7.2 g/dL 6.0-8.3 ALBUMIN 3.8 g/dL 3.5-5.0 ALKALINE PHOSPHATASE 49 U/L 40-150 AST 15 U/L 5-34 ALT 18 U/L BILIRUBIN, TOTAL 0.8 mg/dL 0.2-1.2 Jan 12, 2024 03:32 PM [facility] CBC AND DIFF (AUTO) Specimen Type: BLOOD No comment entered. Ordering Provider: JAYDE FRANCO Report Released Date/Time: Jan 12, 2024 03:18 PM Reporting Lab: [facility] [address] [facility] [address] Performing Lab: [address] [address] WBC 7.29 10*3/uL 4.50-11.00 RBC 3.82 10*6/uL [...] 10*3/uL 0.00-0.00 Jan 12, 2024 03:32 PM [facility] HEMOGLOBIN A1C PANEL Specimen Type: BLOOD [...] Jan 12, 2024 03:18 PM Reporting Lab: [address] [address] Performing Lab: [address] [address] HEMOGLOBIN A1C 4.6 4.0-5.6 Jan 12, 2024 03:32 PM [facility] TSH Specimen Type: SERUM No comment entered. Ordering Provider: JAYDE FRANCO Report Released Date/Time: Jan 12, 2024 03:18 PM Reporting Lab: [address] [address] Performing Lab: [address] [address] TSH 1.67 u[IU]/mL 0.35-5.00 Advance Directives: All [...] Mar 25, 2023 ADVANCE DIRECTIVE PETROS MOTLEY [facility] Encounter Notes: All associated encounter notes This section contains the clinical notes associated to the Encounter. Date/Time Encounter Note(s) Provider Source Jan 01, 2024 02:46 PM ADDENDUM: LOCAL TITLE: Addendum STANDARD TITLE: ADDENDUM DATE OF NOTE: JAN 01, 2024@14:46:51 ENTRY DATE: JAN 01, 2024@14:46:51 AUTHOR: JAYDE FRANCO EXP COSIGNER: URGENCY: STATUS: COMPLETED Hi Jaylan, I will be seeing you on 01/12/24 and looking foward to our visit. I will put in a physical therapy consult for you to see [place]. They will call you for appointment. Have a great weekend see you on 01/11 Best Jayde TAYLOR /mat/ CLAUDIA DE LOS SANTOS Nurse Practitioner Signed: 01/01/2024 14:48 Receipt Acknowledged By: 01/01/2024 14:49 /es/ AUDREY DESHPANDE, MSN, RN, CNL PRIMARY CARE TEAM NURSE ========= --- Original Document --- 01/01/24 PRIMARY CARE SECURE MESSAGING: ------Original Message -------- Sent: 12/31/2023 04:45 PM ET From: JAYLAN ALVAREZ To: Yuli FRANCO_PRIMARY CARE_[facility] Subject: Appointment:Referral for physical therapy Attachments: [id number] (353.95 KB), [id number] (416.43 KB) Good afternoon, I am being transferred to this office for primary care. I recently broke my ankle and currently being treated through [facility]. They are referring me for physical therapy. My appointment with this office is not for two weeks. I am wondering if I can be referred for physical therapy through the [place] for this. I am attaching the report from the orthopedic doctor at [facility]. /DANTE Vazquez, RN, CNL PRIMARY CARE TEAM NURSE Signed: 01/01/2024 09:25 Receipt Acknowledged By: 01/01/2024 14:06 /CLAUDIA Luna Nurse Practitioner 01/01/2024 ADDENDUM STATUS: COMPLETED There is a message from November that she is not elgiable for primary care? She has appt with nm 01/11/23 just want to make sure its ok to place PT appt prior to her being seen? not sure how that works do you know? /CLAUDIA Luna Nurse Practitioner Signed: 01/01/2024 14:15 Receipt Acknowledged By: * AWAITING SIGNATURE * AUDREY DESHPANDE 01/01/2024 14:24 /meet Rivera shotgun shell assembly machine adjuster Staff Nurse 01/01/2024 ADDENDUM STATUS: COMPLETED Secure message sent via [facility] /DANTE Vazquez, RN, CNL PRIMARY CARE TEAM NURSE Signed: 01/01/2024 14:49 JAYDE FRANCO [facility] [facility] Jan 01, 2024 02:12 PM ADDENDUM: LOCAL TITLE: Addendum STANDARD TITLE: ADDENDUM DATE OF NOTE: JAN 01, 2024@14:12:56 ENTRY DATE: JAN 01, 2024@14:12:56 AUTHOR: JAYDE FRANCO EXP COSIGNER: URGENCY: STATUS: COMPLETED There is a message from November that she is not elgiable for primary care? She has appt with nm 01/11/23 just want to make sure its ok to place PT appt prior to her being seen? not sure how that works do you know? /CLAUDIA Luna Nurse Practitioner Signed: 01/01/2024 14:15 Receipt Acknowledged By: 01/01/2024 15:09 /meet DESHPANDE MSN, RN, CNL PRIMARY CARE TEAM NURSE 01/01/2024 14:24 /meet Rivera shotgun shell assembly machine adjuster Staff Nurse ========= --- Original Document --- 01/01/24 PRIMARY CARE SECURE MESSAGING: ------Original Message -------- Sent: 12/31/2023 04:45 PM ET From: JAYLAN AVLAREZ To: Yuli FRANCO_PRIMARY CARE_[facility] Subject: Appointment:Referral for physical therapy Attachments: [id number] (353.95 KB), [id number] (416.43 KB) Good afternoon, I am being transferred to this office for primary care. I recently broke my ankle and currently being treated through [facility]. They are referring me for physical therapy. My appointment with this office is not for two weeks. I am wondering if I can be referred for physical therapy through the [place] for this. I am attaching the report from the orthopedic doctor at [facility]. /mat/ DANTE BRUNER, RN, CNL PRIMARY CARE TEAM NURSE Signed: 01/01/2024 09:25 Receipt Acknowledged By: 01/01/2024 14:06 /CLAUDIA Luna Nurse Practitioner 01/01/2024 ADDENDUM STATUS: COMPLETED Fortino Krishna, I will be seeing you on 01/12/24 and looking foward to our visit. I will put in a physical therapy consult for you to see our team [place] in [place]. They will call you for appointment. Have a great weekend see you on 01/11 Best Jayde TAYLOR /CLAUDIA Luna Nurse Practitioner Signed: 01/01/2024 14:48 Receipt Acknowledged By: 01/01/2024 14:49 /meet DESHPANDE MSN, RN, CNL PRIMARY CARE TEAM NURSE 01/01/2024 ADDENDUM STATUS: COMPLETED Secure message sent via [facility] /DANTE Vazquez, RN, CNL PRIMARY CARE TEAM NURSE Signed: 01/01/2024 14:49 JAYDE FRANCO [facility] Jan 01, 2024 08:25 AM PRIMARY CARE SECUR E MESSAGING: LOCAL TITLE: PRIMARY CARE SECURE MESSAGING STANDARD TITLE: PRIMARY CARE SECURE MESSAGING DATE OF NOTE: JAN 01, 2024@08:25 ENTRY DATE: JAN 01, 2024@09:25:07 AUTHOR: AUDREY DESHPANDE EXP COSIGNER: URGENCY: STATUS: COMPLETED PRIMARY CARE SECURE MESSAGING Has ADDENDA ------Original Message -------- Sent: 12/31/2023 04:45 PM ET From: JAYLAN ALVAREZ To: Yuli FRANCO_PRIMARY CARE_[facility] Subject: Appointment:Referral for physical therapy Attachments: [id number] (353.95 KB), [id number] (416.43 KB) Good afternoon, I am being transferred to this office for primary care. I recently broke my ankle and currently being treated through [facility]. They are referring me for physical therapy. My appointment with this office is not for two weeks. I am wondering if I can be referred for physical therapy through the [place] for this. I am attaching the report from the orthopedic doctor at [facility]. /meet DESHPANDE, MSN, RN, CNL PRIMARY CARE TEAM NURSE Signed: 01/01/2024 09:25 Receipt Acknowledged By: 01/01/2024 14:06 /mat/ CLAUDIA DE LOS SANTOS Nurse Practitioner 01/01/2024 ADDENDUM STATUS: COMPLETED There is a message from November that she is not elgiable for primary care? She has appt with me 01/11/23 just want to make sure its ok to place PT appt prior to her being seen? not sure how that works do you know? /CLAUDIA Luna Nurse Practitioner Signed: 01/01/2024 14:15 Receipt Acknowledged By: * AWAITING SIGNATURE * AUDREY DESHPANDE 01/01/2024 14:24 /es/ Bridget Rivera RN Primary Care Staff Nurse 01/01/2024 ADDENDUM STATUS: COMPLETED Hi Jaylan, I will be seeing you on 01/12/24 and looking foward to our visit. I will put in a physical therapy consult for you to see our team [place]. They will call you for appointment. Have a great weekend see you on 01/11 Matthias TAYLOR /mat/ CLAUDIA DE LOS SANTOS Nurse Practitioner Signed: 01/01/2024 14:48 Receipt Acknowledged By: 01/01/2024 14:49 /mat/ AUDREY DESHPANDE MSN, RN, CNL PRIMARY CARE TEAM NURSE 01/01/2024 ADDENDUM STATUS: COMPLETED Secure message sent via [facility] /mat/ AUDREY DESHPANDE MSN, RN, CNL PRIMARY CARE TEAM NURSE Signed: 01/01/2024 14:49 AUDREY DESHPANDE [facility]
--- OUTSIDE RECORDS SUMMARY | 2024-06-15 10:48 | XMS_ITS | Encounter Summary ---
Author Name [facility] [place] Organization [facility] [place] Address [address] [place] [address] Care Team Providers Care Fisheries Biologist Name Role Phone TRINH FRANCO Primary Care [...] Relationship to Policy Gibson CAREMARK PRESCRIPT ION [facility] Dec 21, 2022 [id number] Jelani ALVAREZ PATIENT [employer] [facility] ([id number]) PRESCRIPT ION [facility] Jun 07, 2022 [id number] Jelani ALVAREZ PATIENT [facility] ORGANIZ[facility] ION [facility] Jun 07, 2022 [id number] Jelani ALVAREZ PATIENT Selected Encounter This section includes the information on record at [place] for the Encounter. Date/Time Encounter Type Encounter Description Reason Provider Source Aug 04, 2023 01:00 PM OFFICE O/P EST LOW 20 MIN [facility] - IND ICD-10-CM F34.1 Dysthymic disorder JENNIFER PALUMBO IHE Encounter Template Text not used by [place] Assessments - Encounter Diagnoses This section includes the primary and secondary diagnoses documented for the Encounter. Date/Time Primary/Secondary Diagnosis Diagnosis Name Provider Source Aug 04, 2023 01:15 PM PRIMARY Dysthymic disorder JENNIFER PALUMBO Plan of Treatment: Future Appointments (+ 6 months) and Future Tests (+/- 45 days) The Plan of Treatment section includes future care activities for the patient from all [place] [facility]. This section includes future appointments and future orders which are active, pending or scheduled. Future Appointments This section includes appointments that were scheduled to occur 6 months from the date of the Encounter, up to a maximum of 20 appointments. The data comes from all [place] treatment facilities. Appointment Date/Time Appointment Type Appointme nt Facility Name Jan 12, 2024 02:30 PM AMBULATORY - MEDICINE [facility] Jan 16, 2024 11:00 AM AMBULATORY - REHAB [facility] Jan 22, 2024 09:15 AM AMBULATORY MEDICINE [facility] Jan 28, 2024 09:00 AM AMBULATORY MEDICINE [facility] Social History: Smoking Status (Most current) and Tobacco Use (All prior to encounter date) This section includes the most current, and the historical, smoking and tobacco- related health factors from the [place] facility where the Encounter took place. Current Smoking Status This section includes the most current smoking, or tobacco-related health factor, from the [place] facility where the Encounter took place. Date/Time Current Smoking Status Comment Claudia tello Mar 18, 2023 09:00 AM [place]-TOBACCO NEVER USED [place] Advance Directives: All historical and current Section Date Range: From patient's date of to the date document was created. This section includes ALL of a patient's completed or amended [place] Advance and Rescinded Directives. The entries below indicate that a directive exists for the patient, but an actual copy is not included with this document. The data comes from all [place] facilities. Date Advance Directives Provider Source Mar 25, 2023 [facility] Encounter Notes: All associated encounter notes This section contains the clinical notes associated to the Encounter. Date/Time Encounter Note(s) Provider Source Aug 04, 2023 01:01 PM TELEHEALTH NOTE: LOCAL TITLE: VA VIDEO CONNECT PSYCHIATRIST NOTE STANDARD TITLE: TELEHEALTH NOTE DATE OF NOTE: AUG 04, 2023@13:01 ENTRY DATE: AUG 04, 2023@13:01:56 AUTHOR: JENNIFER PALUMBO COSIGNER: URGENCY: STATUS: COMPLETED VA Video Connect (VVC) Standard Documentation VVC Clinician Resources Only: E911 (Emergency Call Relay Center): [phone] National Veterans Crisis Line - 988 then press #1. [place] Suicide Coordinator [phone], Ext. [phone]; Back-up Ext. [phone] [place] Police, DAVID, Kassandra [phone] Introduction: Visit is being conducted by [place] [employer]. identified with 2 identifiers: [X] Full Name [X] Date of [ ] [place] ID Card Emergency Plan: confirmed and/or provided the following information in case of emergency or technology failure. PATIENT PHONE - PHONE NUMBER [CELLULAR] - Is patient phone number correct, if not, enter below: [place]'s phone number: JAYLAN ALVAREZ [address], [place], [address] [place]'s present location and address for appointment: same as above [place]'s emergency contact name and phone number: unchanged reported that location is private and safe: Yes Informed Consent: [place] informed of the risks and benefits of Telehealth video care. [place] has the right to refuse video services. If refuses video visit, a [id number] visit will be scheduled. [place] verbalized consent for this video visit: Yes [place] provided consent for any other persons present for visit: N/A If yes, who and relationship to patient: Secure visit: Visit was locked for security and privacy:Yes CHART REVIEW: seen for initial MH Consult 03/18/23 noting: is a 42 year old [facility] [place] [employer] [place], presenting newly to the [facility] to engage [facility] services and presenting for mental health due to frequent tearfulness. 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 [place] [employer] [facility] [employer]. She built a good group of friends who she stayed in touch with for a long time. 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 Is planning to pursue a claim about possible link between her RA and the anthrax vaccine. 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 She is open to trying an SSRI for mood. Will begin on Lexapro 10mg daily. NOTED AT LAST OP VISIT: reports she is sleeping well, crying much less ; just moved to [place] [facility], father helping to remodel, appreciative of his help. A/P: : improvement seen since starting Lexapro. No changes indicated or desired. PRESENTING SYMPTOMS AND CONDITION ON TODAY'S VISIT: reports I feel like I'm drowsy a lot. It helps me but I don't get as emotional as easily . REVIEW OF SYSTEMS MENTAL HEALTH: SLEEP: good MOOD: depressed sometimes with lack of motivation/ energy 3-4 days/ week, still gets emotional about of Grandmother last year PTSD symptoms: denied ANXIETY: some, I'm able to control it more. Feeling overwhelmed ANGER/IRRITABILITY/AGGRESSION: Denies SUBSTANCE USE: Alcohol: rare Illegal/non-prescribed drugs: denies TOBACCO: Non-smoker RAJIV/HYPOMANIA: None evident PSYCHOTIC FEATURES: None evident Suicidal Thoughts/Intent/plan: denied Social Status/ Stressors: [facility] (Apr 2023), work CURRENT PSYCH meds: Lexapro 10mg ADVERSE EFFECTS: a little tired MENTAL STATUS EXAMINATION - Appearance and behavior: [...] CONDITION AND OVERALL PROGRESS TOWARD TREATMENT GOALS: partial improvement seen since starting Lexapro but this is offset by ongoing c/o fatigue since starting the medication. We agreed to taper off this (cut to 5mg daily) and start on Wellbutrin 150mg daily increase to 300mg daily. i. Severity of Illness: ()none (x)mild ( )moderately ill ()severely ill ()very severely ill ii. Global Improvement: ()very much ( )much ( )min (x)none (x)min worse ()much worse ()very much worse iii. [...] Reinforced: If urgent treatment is needed, call [phone] or go to the nearest Emergency Room 2. To schedule or change an appointment, inquire about medication refills, etc: call office number during normal office hours Medication Reconciliation: Outpatient: Has the patient been taking medications as documented in the EMLR? YES: The patient has been taking medications as documented in the EMLR. Essential Medication List for Review used to complete this medication reconciliation. INCLUDED IN THIS LIST: Alphabetical list of active outpatient prescriptions dispensed from this [place] (local) and dispensed from another [place] or [facility] facility (remote) as well as inpatient orders [...] whether with a VA or non-VA provider. /mat/ JENNIFER PALUMBO M.D. Signed: 08/04/2023 13:17 JENNIFER PALUMBO [place]
--- OUTSIDE RECORDS SUMMARY | 2024-06-15 10:48 | XMS_ITS | Encounter Summary ---
Author Name Department [place] Organization [facility] ([place]) Address [address] [place] [address] Care Team Providers Care Boat Outboard Engine Mechanic Name Role Phone JAYDE FRANCO Primary Care [...] Relationship to Policy Gibson CAREMARK PRESCRIPT ION [facility] Dec 21, 2022 [id number] Jelani ALVAREZ PATIENT [employer] ([id number]) PRESCRIPT ION GIC Jun 07, 2022 [id number] Jelani ALVAREZ PATIENT [facility] ORGANIZAT ION [facility] Jun 07, 2022 [id number] Jelani ALVAREZ PATIENT Selected Encounter This section includes the information on record at [place] for the Encounter. Date/Time Encounter Type Encounter Description Reason Provider Source Jan 14, 2024 10:01 AM Outpatient Encounter PRIMARY CARE/MEDICINE SAMANTHA GRIFFIN IHE Encounter Template Text not used by [facility] Plan of Treatment: Future Appointments (+ 6 months) and Future Tests (+/- 45 days) The Plan of Treatment section includes future care activities for the patient from all [place] [facility]. This section includes future appointments and future orders which are active, pending or scheduled. Future Appointments This section includes appointments that were scheduled to occur 6 months from the date of the Encounter, up to a maximum of 20 appointments. The data comes from all [place] treatment facilities. Appointment Date/Time Appointment Type Appointme nt Facility Name Jan 16, 2024 11:00 AM AMBULATORY - REHAB [facility] Jan 22, 2024 09:15 AM AMBULATORY - MEDICINE [place] [facility] [place] [facility] Jan 28, 2024 09:00 AM AMBULATORY - MEDICINE [place] [facility] [place] [facility] Feb 25, 2024 09:30 AM AMBULATORY - REHAB [facility] Feb 27, 2024 01:30 PM AMBULATORY - PSYCHIATRY [place] [facility] [place] [facility] Mar 09, 2024 08:45 AM AMBULATORY - MEDICINE [place] [facility] [place] [facility] Apr 16, 2024 11:00 AM AMBULATORY - PSYCHIATRY [place] [facility] [place] [facility] May 06, 2024 01:00 PM AMBULATORY - MEDICINE [place] [facility] [place] [place] [facility] May 14, 2024 11:00 AM AMBULATORY - PS[place]CHIATRY [place] [facility] [place] [facility] May 14, 2024 01:00 PM AMBULATORY - PS[place]CHIATRY [place] [facility] [place] [place] [facility] May 28, 2024 01:00 PM AMBULATORY - PS[place]CHIATRY [place] [facility] [place] [facility] Jun 11, 2024 01:30 PM AMBULATORY - PS[place]CHIATRY [facility] [place] [facility] Jun 11, 2024 02:00 PM AMBULATORY - PSYCHIATRY [place] [facility] [place] [facility] Jun 15, 2024 10:45 AM AMBULATORY - MEDICINE [place] [facility] [place] [place] [facility] Jun 18, 2024 01:00 PM AMBULATORY - PSYCHIATRY [place] [facility] [place] [facility] Jun 25, 2024 01:00 PM AMBULATORY - PSYCHIATRY [facility] [place] [facility] Jul 02, 2024 01:00 PM AMBULATORY - PSYCHIATRY [place] [facility] [place] [facility] Jul 09, 2024 01:00 PM AMBULATORY - PSYCHIATRY [facility] Jul 16, 2024 01:00 PM AMBULATORY - PSYCHIATRY [facility] Lab Results: +/- 30 days of the encounter This section includes the Chemistry and Hematology Lab Results on record with [place] for the patient. Radiology Reports and Pathology Reports are provided separately, in subsequent sections. Lab Results This section contains the Chemistry/Hematology Results that were resulted 30 days before or 30 daysafter the date of the Encounter. Date/Time Source Result Type Result - Unit Interpretation Reference Range Comment Jan 12, 2024 03:32 PM [facility] BASIC METABOLIC PANEL (non-fasting) Specimen Type: SERUM No comment entered. Ordering Provider: JAYDE FRANCO Report Released Date/Time: Jan 12, 2024 03:18 PM Reporting Lab: [address] [phone] Performing Lab: [address] [address] UREA NITROGEN 18 mg/dL 7-25 GLUCOSE 108 mg/dL H 65-100 SODIUM 136 mmol/L 135-145 POTASSIUM 4.4 mmol/L 3.5-5.0 CHLORIDE 103 mmol/L 100-110 CO2 27 meq/L 20-30 CREATININE, Serum 0.90 mg/dL 0.50-1.40 eGFR(CKD-EPI 2020) 81 mL/min >60 Jan 12, 2024 03:32 PM [facility] LIPID PANEL FASTING Specimen Type: SERUM No comment entered. Ordering Provider: JAYDE FRANCO Report Released Date/Time: Jan 12, 2024 03:18 PM Reporting Lab: [address] [address] Performing Lab: [address] [address] CHOLESTEROL 200 mg/dL H TRIGLYCERIDE 64 mg/dL 0-150 LDL calculated 127 mg/dL 0-129 CHOL/HDL 3.3 HDL CHOLESTEROL 60 mg/dL 40-60 Jan 12, 2024 03:32 PM [facility] LIVER FUNCTION Specimen Type: SERUM No comment entered. Ordering Provider: JAYDE FRANCO Report Released Date/Time: Jan 12, 2024 03:18 PM Reporting Lab: [facility] [address] [facility] [address] Performing Lab: [address] [address] PROTEIN,TOTAL 7.2 g/dL 6.0-8.3 ALBUMIN 3.8 g/dL 3.5-5.0 ALKALINE PHOSPHATASE 49 U/L 40-150 AST 15 U/L 5-34 ALT 18 U/L BILIRUBIN, TOTAL 0.8 mg/dL 0.2-1.2 Jan 12, 2024 03:32 PM [facility] CBC AND DIFF (AUTO) Specimen Type: BLOOD No comment entered. Ordering Provider: JAYDE FRANCO Report Released Date/Time: Jan 12, 2024 03:18 PM Reporting Lab: [address] [address] Performing Lab: [address] [address] WBC 7.29 10*3/uL 4.50-11.00 RBC 3.82 10*6/uL [...] 10*3/uL 0.00-0.00 Jan 12, 2024 03:32 PM [facility] HEMOGLOBIN A1C PANEL Specimen Type: BLOOD [...] Jan 12, 2024 03:18 PM Reporting Lab: [facility] [address] [facility] [address] Performing Lab: [address] [address] HEMOGLOBIN A1C 4.6 4.0-5.6 Jan 12, 2024 03:32 PM [facility] TSH Specimen Type: SERUM No comment entered. Ordering Provider: JAYDE FRANCO Report Released Date/Time: Jan 12, 2024 03:18 PM Reporting Lab: [facility] [address] [facility] [address] Performing Lab: [address] [address] TSH 1.67 u[IU]/mL 0.35-5.00 Advance Directives: All [...] this document. The data comes from all [place] facilities. Date Advance Directives Provider Source Mar 25, 2023 ADVANCE DIRECTIVE PETROS MOTLEY [facility] Encounter Notes: All associated encounter notes This section contains the clinical notes associated to the Encounter. Date/Time Encounter Note(s) Provider Source Jan 15, 2024 08:29 PM PRIMARY CARE SECURE MESSAGING: LOCAL TITLE: PRIMARY CARE SECURE MESSAGING STANDARD TITLE: PRIMARY CARE SECURE MESSAGING DATE OF NOTE: JAN 15, 2024@20:29 ENTRY DATE: JAN 15, 2024@21:29:08 AUTHOR: SAMANTHA GRIFFIN EXP COSIGNER: URGENCY: STATUS: COMPLETED PRIMARY CARE SECURE MESSAGING Has ADDENDA ------Original Message --- Sent: 01/14/2024 11:05 AM ET From: JAYLAN ALVAREZ To: Yuli FRANCO_PRIMARY CARE_[facility] Subject: General:General Inquiry Sure, can I try [facility] or [facility] please? Maybe they would have a morning opening prior to April. Thank you Jaylan Alvarez ------Original Message --- Sent: 01/15/2024 09:29 PM ET From: SAMANTHA GRIFFIN To: JAYLAN ALVAREZ Subject: General:General Inquiry Fortino Krishna, I reached out to our community health care department to see if either of those facilities will be able to see you sooner. Just awaiting their reply. Thanks, Samantha Griffin, neonatal intensive care nurse/Women's health team nurse /meet GRIFFIN MSN, RN, CNL PRIMARY CARE TEAM NURSE Signed: 01/15/2024 21:29 01/16/2024 ADDENDUM STATUS: COMPLETED Jaylan from [facility] reached out and spoke with [place]. [place] has an appt 01/22/24 at 0915 office visit with Stephania Du at [facility]. is going to stay with [facility] Gastro. /meet GRIFFIN MSN, RN, CNL PRIMARY CARE TEAM NURSE Signed: 01/16/2024 08:28 SAMANTHA GRIFFIN [facility] Jan 14, 2024 10:01 AM PRIMARY CARE SECURE MESSAGING: LOCAL TITLE: PRIMARY CARE SECURE MESSAGING STANDARD TITLE: PRIMARY CARE SECURE MESSAGING DATE OF NOTE: JAN 14, 2024@10:01 ENTRY DATE: JAN 14, 2024@11:01:40 AUTHOR: SAMANTHA GRIFFIN EXP COSIGNER: URGENCY: STATUS: COMPLETED ------Original Message --- Sent: 01/01/2024 02:49 PM ET From: SAMANTHA GRIFFIN To: JAYLAN ALVAREZ Subject: General:General Inquiry Message from Jayde: Fortino Krishna, I will be seeing you on 01/12/24 and looking foward to our visit. I will put in a physical therapy consult for you to see our team [place] in [place]. They will call you for appointment. Have a great weekend see you on 01/11 Best Jayde SCHAEFERP ------Original Message --- Sent: 01/13/2024 10:41 AM ET From: JAYLAN ALVAREZ To: Yuli FRANCO_PRIMARY CARE_[facility] Subject: General:General Inquiry Good morning, it was nice meeting with you yesterday. I have a follow up [facility]ast[facility] September next week but the scheduling department had not yet reached out yet to schedule a colonoscopy. I called this morning to schedule since I have been having challenges with gastro the last few days but they were not able to schedule me until April. Does the [place] do colonoscopies or is there another location I could get referred to in order to see if there is earlier availability? Thank you Jaylan Alvarez ------Original Message --- Sent: 01/14/2024 11:01 AM ET From: SAMANTHA GRIFFIN To: JAYLAN ALVAERZ Subject: General:General Inquiry Fortino Krishna, The [place] does colonoscopies but only the [place], [place], [place] and [place], [place] locations. Other community Technical Publications Writer in this area- [facility] [place], [facility], I'm not sure if they would be able to schedule you in sooner. I can reach out to our community care department if there's another Technical Publications Writer that you would like to see? Please let us know. Thanks, Samantha Griffni, neonatal intensive care nurse/Women's health team nurse /mat/ SAMANTHA GRIFFIN, MSN, RN, CNL PRIMARY CARE TEAM NURSE Signed: 01/14/2024 11:01 SAMANTHA GRIFFIN [facility]
--- OUTSIDE RECORDS SUMMARY | 2024-06-15 10:48 | XMS_ITS | Encounter Summary ---
Author Name [place] Organization [facility] Address [address] [place] [address] Care Team Providers Care Roving Hand Name Role Phone TRINH FRANCO Primary Care [...] Relationship to Policy Gibson CAREMARK PRESCRIPT ION [facility] Dec 21, 2022 [id number] Jelani ALVAREZ PATIENT [employer] ([id number]) PRESCRIPT ION GIC Jun 07, 2022 [id number] Jelani ALVAREZ PATIENT [facility] ORGANIZAT ION [facility] Jun 07, 2022 [id number] [phone] Jelani ALVAREZ PATIENT Selected Encounter This section includes the information on record at [place] for the Encounter. Date/Time Encounter Type Encounter Description Reason Provider Source Dec 05, 2023 08:41 AM Outpatient Encounter PRIMARY CARE/MEDICINE STALIN JOHN Encounter Template Text not used by VA Plan of Treatment: Future Appointments (+ 6 months) and Future Tests (+/- 45 days) The Plan of Treatment section includes future care activities for the patient from all [place] [facility] This section includes future appointments and future orders which are active, pending or scheduled. Future Appointments This section includes appointments that were scheduled to occur 6 months from the date of the Encounter, up to a maximum of 20 appointments. The data comes from all [facility]. Appointment Date/Time Appointment Type Appointme nt Facility Name Jan 12, 2024 02:30 PM AMBULATORY MEDICINE [place] [facility] Jan 16, 2024 11:00 AM AMBULATORY - REHAB [facility] Jan 22, 2024 09:15 AM AMBULATORY MEDICINE [place] [facility] Jan 28, 2024 09:00 AM AMBULATORY MEDICINE [place] [facility] Feb 25, 2024 09:30 AM AMBULATORY REHAB [facility] Feb 27, 2024 01:30 PM AMBULATORY PS[place]CHIATRY [place] [facility] Mar 09, 2024 08:45 AM AMBULATORY MEDICINE [place] [facility] Apr 16, 2024 11:00 AM AMBULATORY - PS[place]CHIATRY [place] [facility] May 06, 2024 01:00 PM AMBULATORY MEDICINE [place] [facility] May 14, 2024 11:00 AM AMBULATORY - PS[place]CHIATRY [place] [facility] May 14, 2024 01:00 PM AMBULATORY - PS[place]CHIATRY [place] [facility] May 28, 2024 01:00 PM AMBULATORY - PS[place]CHIATRY [place] [facility] Advance Directives: All historical and current Section Date Range: From patient's date of to the date document was created. This section includes ALL of a patient's completed or amended [place] Advance and Rescinded Directives. The entries below indicate that a directive exists for the patient, but an actual copy is not included with this document. The data comes from all [facility]. Date Advance Directives Provider Source Mar 25, 2023 ADVANCE DIRECTIVE PETROS MOTLEY Encounter Notes: All associated encounter notes This section contains the clinical notes associated to the Encounter. Date/Time Encounter Note(s) Provider Source Dec 05, 2023 08:41 AM PRIMARY CARE SECFAVIAN E MESSAGING: LOCAL TITLE: PRIMARY CARE SECURE MESSAGING STANDARD TITLE: PRIMARY CARE SECURE MESSAGING DATE OF NOTE: DEC 05, 2023@08:41 ENTRY DATE: DEC 05, 2023@09:41:46 AUTHOR: STALIN OJHN EXP COSIGNER: URGENCY: STATUS: COMPLETED ------Original Message ----- Sent: 12/05/2023 09:41 AM ET From: STALIN JOHN To: JAYLAN ALVAREZ Subject: General:General Inquiry Good morning, We have been notified that you are no longer eligible for care or services through the [place] health system. We were advised that a letter has been mailed to you in August 2023 with information that you are ineligible for VA services. I wanted to reach out to you to encourage you to follow up with your non VA medical providers for any future needs. You will no longer be receiving your medications previously provided through the [place] pharmacy services so should reach out to your non VA provider for prescriptions going forward. If you have any questions, please reach out to the [place] eligibility/enrollment office at [phone] for inquiries. Best regardsStalin RN /mat/ ROBBIE CINTRONN RN-BC REGISTERED NURSE Signed: 12/05/2023 09:41 STALIN JOHN [place] [facility]
--- OUTSIDE RECORDS SUMMARY | 2024-06-15 10:48 | XMS_ITS | Encounter Summary ---
Author Name [place] Organization [facility] [place] Address [address] [place] [address] Care Team Providers Care Hybrid Tester Name Role Phone TRINH FRANCO Primary Care [...] Relationship to Policy Gibson CAREMARK PRESCRIPT ION [facility] Dec 21, 2022 [id number] [phone] Jelani ALVAREZ PATIENT [employer] ([id number]) PRESCRIPT ION GIC Jun 07, 2022 [id number] [phone] Jelani ALVAREZ PATIENT [facility] CE ORGANIZAT ION [facility] Jun 07, 2022 [id number] Jelani ALVAREZ PATIENT Selected Encounter This section includes the information on record at [place] for the Encounter. Date/Time Encounter Type Encounter Description Reason Provider Source November 05, 2023 02:04 PM Outpatient Encounter PRIMARY CARE/MEDICINE STALIN JOHN Encounter Template Text not used by VA Plan of Treatment: Future Appointments (+ 6 months) and Future Tests (+/- 45 days) The Plan of Treatment section includes future care activities for the patient from all [place] [facility]. This section includes future appointments and future orders which are active, pending or scheduled. Future Appointments This section includes appointments that were scheduled to occur 6 months from the date of the Encounter, up to a maximum of 20 appointments. The data comes from all [facility]. Appointment Date/Time Appointment Type Appointme nt Facility Name Jan 12, 2024 02:30 PM AMBULATORY MEDICINE [facility] Jan 16, 2024 11:00 AM AMBULATORY - REHAB [facility] Jan 22, 2024 09:15 AM AMBULATORY MEDICINE [facility] Jan 28, 2024 09:00 AM AMBULATORY [facility] Feb 25, 2024 09:30 AM AMBULATORY REHAB [facility] Feb 27, 2024 01:30 PM [facility] Mar 09, 2024 08:45 AM AMBULATORY MEDICINE [facility] [place] [facility] Apr 16, 2024 11:00 AM [facility] May 06, 2024 01:00 PM [facility]UL[facility]ORY [facility] Advance Directives: All historical and current Section Date Range: From patient's date of to the date document was created. This section includes ALL of a patient's completed or amended [place] Advance and Rescinded Directives. The entries below indicate that a directive exists for the patient, but an actual copy is not included with this document. The data comes from all [facility]. Date Advance Directives Provider Source Mar 25, 2023 ADVANCE DIRECTIVE PETROS MOTLEY [facility] Encounter Notes: All associated encounter notes This section contains the clinical notes associated to the Encounter. Date/Time Encounter Note(s) Provider Source November 05, 2023 02:04 PM PRIMARY CARE SECUR E MESSAGING: LOCAL TITLE: PRIMARY CARE SECURE MESSAGING STANDARD TITLE: PRIMARY CARE SECURE MESSAGING DATE OF NOTE: NOVEMBER 05, 2023@14:04 ENTRY DATE: NOVEMBER 05, 2023@15:04:41 AUTHOR: JOHN,STALIN EXP COSIGNER: URGENCY: STATUS: COMPLETED PRIMARY CARE SECURE MESSAGING Has ADDENDA ------Original Message ------ Sent: 11/05/2023 03:03 PM ET From: STALIN JOHN To: LAKEISHA ALVAREZALLYSSA Epperson Subject: General:General Inquiry Good afternoon, I see a previously discontinued [facility] rheumatology consult placed by Dr Neves in your chart, but am unsure if you were seen at that clinic. I would recommend that you contact the [place] community care dept in [place] at [phone] to discuss why consult was discontinued. Best regards, Stalin RN /es/ CAROLYNN CINTRON RN-BC REGISTERED NURSE Signed: 11/05/2023 15:04 12/05/2023 ADDENDUM STATUS: COMPLETED Also called [place] and left voicemail advising that would send her a secure message with information from the [place] health services for her to review. /mat/ CAROLYNN CINTRON RN-BC REGISTERED NURSE Signed: 12/05/2023 09:42 STALIN JOHN [place] [facility] [facility]
--- OUTSIDE RECORDS SUMMARY | 2024-06-15 10:49 | XMS_ITS | Encounter Summary ---
Author Name Department of [place] Organization [place] Address [address] [place] [id number] Care Team Providers Care Engineering Associate Name Role Phone TRINH FRANCO Primary [...] Relationship to Policy Gibson CAREMARK PRESCRIPT ION [facility] Dec 21, 2022 [id number] [phone] Jelani ALVAREZ PATIENT [employer] ([id number]) PRESCRIPT ION [facility] Jun 07, 2022 [id number] Jelani ALVAREZ PATIENT [facility] CE ORGANIZAT ION [facility] Jun 07, 2022 [id number] Jelani ALVAREZ PATIENT Selected Encounter This section includes the information on record at [place] for the Encounter. Date/Time Encounter Type Encounter Description Reason Pro vider Source IHE Encounter Template Text not used by VA Advance Directives: All historical and current Section Date Range: From patient's date of to the date document was created. This section includes ALL of a patient's completed or amended [place] Advance and Rescinded Directives. The entries below indicate that a directive exists for the patient, but an actual copy is not included with this document. The data comes from all [place] facilities. Date Advance Directives Provider Source Mar 25, 2023 ADVANCE DIRECTIVE PETROS MOTLEY
--- OUTSIDE RECORDS SUMMARY | 2024-06-15 10:49 | XMS_ITS ---
Author Name Department of Vetera Affairs ([place]) Organization Department [place] Address [address] [place] [address] Care Team Providers Care Financial Services Professional Name Role Phone TRINH FRANCO Primary Care [...] Relationship to Policy Gibson CAREMARK PRESCRIPT ION [facility] Dec 21, 2022 [id number] Jelani ALVAREZ PATIENT [facility] ([id number]) PRESCRIPT ION [facility] Jun 07, 2022 [id number] [phone] Jelani ALVAREZ PATIENT [facility] CE ORGANIZAT ION [facility] Jun 07, 2022 [id number] [phone] [phone] Jelani ALVAREZ PATIENT Selected Encounter This section includes the information on record at [place] for the Encounter. Date/Time Encounter Type Encounter Description Reason Pro vider Source Feb 25, 2024 03:50 PM Outpatient Encounter PHYSICAL THERAPY IHE Encounter Template Text not used by VA Plan of Treatment: Future Appointments (+ 6 months) and Future Tests (+/- 45 days) The Plan of Treatment section includes future care activities for the patient from all [place] [facility]. This section includes future appointments and future orders which are active, pending or scheduled. Future Appointments This section includes appointments that were scheduled to occur 6 months from the date of the Encounter, up to a maximum of 20 appointments. The data comes from all [place] treatment facilities. Appointment Date/Time Appointment Type Appointme nt Facility Name Feb 27, 2024 01:30 PM AMBULATORY [facility] [place] [facility] Mar 09, 2024 08:45 AM AMBULATORY - MEDICINE [facility] [place] [facility] Apr 16, 2024 11:00 AM AMBULATORY - PS[facility]IATRY [facility] [place] [facility] May 06, 2024 01:00 PM AMBULATORY - MEDICINE [facility] [place] [facility] May 14, 2024 11:00 AM AMBULATORY - PS[facility]CHIATRY [facility] [place] [facility] May 14, 2024 01:00 PM AMBULATORY - PS[facility]IATRY [facility] [place] [facility] May 28, 2024 01:00 PM AMBULATORY - PS[facility]CHIATRY [facility] [place] [facility] Jun 11, 2024 01:30 PM AMBULATORY - PS[facility]CHIATRY [facility] [place] [facility] Jun 11, 2024 02:00 PM AMBULATORY - PS[facility]CHIATRY [facility] [place] [facility] Jun 15, 2024 10:45 AM AMBULATORY - MEDICINE [facility] [place] [facility] Jun 18, 2024 01:00 PM AMBULATORY - PS[facility]CHIATRY [facility] [place] [facility] Jun 25, 2024 01:00 PM AMBULATORY - PS[facility]CHIATRY [facility] [place] [facility] Jul 02, 2024 01:00 PM AMBULATORY - PS[facility]CHIATRY [facility] [place] [facility] Jul 09, 2024 01:00 PM AMBULATORY [facility] PS[facility]CHIATRY [facility] [place] [facility] Jul 16, 2024 01:00 PM AMBULATORY - PS[facility]CHIATRY [facility] [place] [facility] Jul 19, 2024 10:00 AM AMBULATORY - PS[facility]CHIATRY [facility] [place] [facility] Jul 23, 2024 01:00 PM AMBULATORY - PS[facility]CHIATRY [facility] [place] [facility] Aug 19, 2024 02:00 PM AMBULATORY - MEDICINE [facility] Advance Directives: All historical and current Section Date Range: From patient's date of to the date document was created. This section includes ALL of a patient's completed or amended [place] Advance and Rescinded Directives. The entries below indicate that a directive exists for the patient, but an actual copy is not included with this document. The data comes from all [place] facilities. Date Advance Directives Provider Source Mar 25, 2023 ADVANCE DIRECTIVE PETROS MOTLEY [facility] Radiology Reports: +/- 30 days [...] the Encounter. The data comes from all [place] treatment facilities. Date/Time Radiology Report Provider Source Mar 09, 2024 08:45 AM OUTSIDE MAMMO/SCRE ENING, INCLUDING CAD, BILAT: JAYLAN ALVAREZ [id number] -1980 F Exm Date: MAR 09, 2024@08:45 Req Phys: TRINH FRANCO Pat Loc: CWM/NO/PACT 5 (Req'g Loc) Img Loc: OUTSIDE GENERAL RADIOLOGY Service: Unknown Screen: Patient is unable to answer or is unsure Screen Comment: cc exam (Case 196 COMPLETE) OUTSIDE MAMMO/SCREENING, INCLUDIN(RAD Detailed) CPT:33690 Reason for Study: screening Clinical History: Report Status: Electronically Filed Date Reported: MAR 09, 2024 Report: Community care exam; see CPRS/JLV for outside radiology report/results Impression: Community care exam; see CPRS/JLV for outside radiology report/results Primary Diagnostic Code: BI-RADS CATEGORY 2 (Benign) VERIFIED BY: / *ELECTRONICALLY FILED* [facility] Encounter Notes: All associated encounter notes This section contains the clinical notes associated to the Encounter. Date/Time Encounter Note(s) Provider Source Feb 25, 2024 03:50 PM CLERICAL NOTE: LOCAL TITLE: APPOINTMENT NO SHOW STANDARD TITLE: CLERICAL NOTE DATE OF NOTE: FEB 25, 2024@15:50 ENTRY DATE: FEB 25, 2024@15:50:51 AUTHOR: SERVANDO RUSS EXP COSIGNER: URGENCY: STATUS: COMPLETED Patient Name: JAYLAN ALVAREZ Patient SSN: [id number] Date and time of Appointment No show : 02/25/24 15:50 PATIENT PHONE - PHONE NUMBER [CELLULAR] - Patient's medical record was reviewed. Follow-up actions were determined and initiated: Please check/complete as applies: [X]Telephoned Directly [ ]Re-scheduled for next available appt [X]Sent a N0-show letter ( must call for appointment) [ ]Other (Emergent/Overbook, etc.): Additional Comments: Future Clinic Visits 02/27/2024 13:30 CWM/SO/VVC/MHC/PSYTR 1 05/06/2024 13:00 CWM/NO/RHEUMATOLOGY B 01/18/2025 09:00 CWM/NO/PACT 5 /es/ SERVANDO RUSS SUPERVISORY CHIROPRACTIC PHYSICIAN Signed: 02/25/2024 15:51 SERVANDO RUSS [place]
--- OUTSIDE RECORDS SUMMARY | 2024-06-15 10:49 | XMS_ITS | Encounter Summary ---
Author Name Department of [place] Affairs ([place]) Organization Department of [facility] ([place]) Address [address] [place] [address] Care Team Providers Care Fast Food Supervisor Name Role Phone TRINH FRANCO Primary Care [...] to Policy Gibson CAREMARK PRESCRIPT ION [facility] Dec 21, 2022 [id number] Jelani ALVAREZ PATIENT [facility] ([id number]) PRESCRIPT ION [facility] Jun 07, 2022 [id number] [phone] Jelani ALVAREZ PATIENT [facility] CE ORGANIZAT ION [facility] Jun 07, 2022 [id number] [id number] [phone] Jelani ALVAREZ PATIENT Selected Encounter This section includes the information on record at [place] for the Encounter. Date/Time Encounter Type Encounter Description Reason Pro vider Source Feb 17, 2024 12:00 AM Outpatient Encounter EVENT (HISTORICAL) IHE Encounter Template Text not used by VA Plan of Treatment: Future Appointments (+ 6 months) and Future Tests (+/- 45 days) The Plan of Treatment section includes future care activities for the patient from all [place] [facility]. This section includes future appointments and future orders which are active, pending or scheduled. Future Appointments This section includes appointments that were scheduled to occur 6 months from the date of the Encounter, up to a maximum of 20 appointments. The data comes from all [place] treatment facilities. Appointment Date/Time Appointment Type Appointme nt Facility Name Feb 25, 2024 09:30 AM AMBULATORY - REHAB [facility] Feb 27, 2024 01:30 PM AMBULATORY - PS[facility]CHIATRY [facility] [place] [facility] Mar 09, 2024 08:45 AM AMBULATORY - MEDICINE [facility] [place] [facility] Apr 16, 2024 11:00 AM AMBULATORY - PSYCHIATRY [facility] [place] [facility] May 06, 2024 01:00 PM AMBULATORY - MEDICINE [facility] [place] [facility] May 14, 2024 11:00 AM AMBULATORY - PSYCHIATRY [facility] [place] [facility] May 14, 2024 01:00 PM AMBULATORY - PSYCHIATRY [facility] [place] [facility] May 28, 2024 01:00 PM AMBULATORY - PSYCHIATRY [facility] [place] [facility] Jun 11, 2024 01:30 PM AMBULATORY - PSYCHIATRY [facility] [place] [facility] Jun 11, 2024 02:00 PM AMBULATORY - PSYCHIATRY [facility] [place] [facility] Jun 15, 2024 10:45 AM AMBULATORY - MEDICINE [facility] [place] [facility] Jun 18, 2024 01:00 PM AMBULATORY - PSYCHIATRY [facility] [place] [facility] Jun 25, 2024 01:00 PM AMBULATORY - PSYCHIATRY [facility] [place] [facility] Jul 02, 2024 01:00 PM AMBULATORY - PSYCHIATRY [facility] [place] [facility] Jul 09, 2024 01:00 PM AMBULATORY - PSYCHIATRY [facility] [place] [facility] Jul 16, 2024 01:00 PM AMBULATORY - PSYCHIATRY [facility] [place] [facility] Jul 19, 2024 10:00 AM AMBULATORY - PSYCHIATRY [facility] [place] [facility] Jul 23, 2024 01:00 PM AMBULATORY - PSYCHIATRY [place] [facility] Aug 19, 2024 02:00 PM AMBULATORY - MEDICINE [place] C [facility] Advance Directives: All historical and current [...] Provider Source Mar 25, 2023 ADVANCE DIRECTIVE TOLUDAVIDJunior [facility] Radiology [...] MAMMO/SCRE ENING, INCLUDING CAD, BILAT: JAYLAN ALVAREZ [id number] -1980 F Exm Date: MAR 09, 2024@08:45 Req Phys: TRINH FRANCO Pat Loc: CWM/NO/PACT 5 (Req'g Loc) Img Loc: OUTSIDE GENERAL RADIOLOGY Service: Unknown Screen: Patient is unable to answer or is unsure Screen Comment: cc exam (Case 196 COMPLETE) OUTSIDE MAMMO/SCREENING, INCLUDIN(RAD Detailed) CPT:76571 Reason for Study: screening Clinical History: Report Status: Electronically Filed Date Reported: MAR 09, 2024 Report: Community care exam; see CPRS/JLV for outside radiology report/results Impression: Community care exam; see CPRS/JLV for outside radiology report/results Primary Diagnostic Code: BI-RADS CATEGORY 2 (Benign) VERIFIED BY: / *ELECTRONICALLY FILED* [facility] Encounter Notes: All associated encounter notes This section contains the clinical notes associated to the Encounter. Date/Time Encounter Note(s) Provider Source Feb 17, 2024 12:00 AM NONVA CONSULT: LOCAL TITLE: COMMUNITY CARE-CONSULT RESULT NOTE STANDARD TITLE: NONVA CONSULT DATE OF NOTE: FEB 17, 2024 ENTRY DATE: MAR 15, 2024@13:59:07 AUTHOR: TONY ZAMORANO COSIGNER: URGENCY: STATUS: COMPLETED VistA Imaging - Scanned Document SCANNED DOCUMENT SIGNATURE NOT REQUIRED Electronically Filed: 03/15/2024 by: KIET ZAMORANO [employer] KIET ZAMORANO [facility]
--- OUTSIDE RECORDS SUMMARY | 2024-06-15 10:49 | XMS_ITS | Encounter Summary ---
Author Name Department of [place] Organization Department of [place] Address [address] [place] [address] Care Team Providers Care Director Oracle Database Name Role Phone TRINH FRANCO Primary Care [...] Relationship to Policy Gibson CAREMARK PRESCRIPT ION [facility] Dec 21, 2022 [id number] [phone] Jelani ALVAREZ PATIENT [facility] ([phone]) PRESCRIPT ION [facility] Jun 07, 2022 [id number] Jelani ALVAREZ PATIENT [facility] CE ORGANIZAT ION [facility] Jun 07, 2022 [id number] [id number] Jelani ALVAREZ PATIENT Selected Encounter This section includes the information on record at [place] for the Encounter. Date/Time Encounter Type Encounter Description Reason Provider Source Feb 27, 2024 01:58 PM QNHP OL DIG ASSMT&MGMT 11-20 CLINICAL PHARMACY ICD-10-CM J30.9 Allergic rhinitis, unspecified WHEELER,QUE N IHJunior Encounter Template Text not used by [place] Assessments - Encounter Diagnoses This section includes the primary and secondary diagnoses documented for the Encounter. Date/Time Primary/Secondary Diagnosis Diagnosis Name Provider Source Feb 27, 2024 02:30 PM PRIMARY Allergic rhinitis, unspecified LINNEA WHEELER [facility] ([id number]) Plan of Treatment: Future Appointments (+ 6 [...] 09, 2024 08:45 AM AMBULATORY - MEDICINE [place] [facility] [place] [facility] Apr 16, 2024 11:00 AM AMBULATORY - PSYCHIATRY [facility] [place] [facility] May 06, 2024 01:00 PM AMBULATORY - MEDICINE [place] [facility] [facility] May 14, 2024 11:00 AM AMBULATORY - PSYCHIATRY [facility] [place] [facility] May 14, 2024 01:00 PM AMBULATORY - PSYCHIATRY [facility] [place] [facility] May 28, 2024 01:00 PM AMBULATORY - PSYCHIATRY [facility] [place] [facility] Jun 11, 2024 01:30 PM AMBULATORY - PSYCHIATRY [facility] [place] [facility] Jun 11, 2024 02:00 PM AMBULATORY - PSYCHIATRY [facility] [place] [facility] Jun 15, 2024 10:45 AM AMBULATORY - MEDICINE [place] [facility] [place] [facility] Jun 18, 2024 01:00 PM AMBULATORY - PSYCHIATRY [facility] [place] [facility] Jun 25, 2024 01:00 PM AMBULATORY - PSYCHIATRY [facility] [place] [facility] Jul 02, 2024 01:00 PM AMBULATORY - PSYCHIATRY [facility] [place] [facility] Jul 09, 2024 01:00 PM AMBULATORY - PSYCHIATRY [facility] [place] [facility] Jul 16, 2024 01:00 PM AMBULATORY - PSYCHIATRY [place] [facility] [place] [facility] Jul 19, 2024 10:00 AM AMBULATORY - PSYCHIATRY [place] [facility] [place] [facility] Jul 23, 2024 01:00 PM AMBULATORY - PSYCHIATRY [place] [facility] [facility] Aug 19, 2024 02:00 PM AMBULATORY - MEDICINE [place] [facility] Advance Directives: All historical and current [...] Provider Source Mar 25, 2023 ADVANCE DIRECTIVE KAIA MOTLEYFIORDALIZAMONICA [facility] Radiology Reports: +/- 30 days [...] the Encounter. The data comes from all [place] treatment facilities. Date/Time Radiology Report Provider Source Mar 09, 2024 08:45 AM OUTSIDE MAMMO/SCRE ENING, INCLUDING CAD, BILAT: KIMJAYLAN Zhou [id number] -1980 F Exm Date: MAR 09, 2024@08:45 Req Phys: TRINH FRANCO Pat Loc: CWM/NO/PACT 5 (Req'g Loc) Img Loc: OUTSIDE GENERAL RADIOLOGY Service: Unknown Screen: Patient is unable to answer or is unsure Screen Comment: cc exam (Case 196 COMPLETE) OUTSIDE MAMMO/SCREENING, INCLUDIN(RAD Detailed) CPT:62529 Reason for Study: screening Clinical History: Report Status: Electronically Filed Date Reported: MAR 09, 2024 Report: Community care exam; see CPRS/JLV for outside radiology report/results Impression: Community care exam; see CPRS/JLV for outside radiology report/results Primary Diagnostic Code: BI-RADS CATEGORY 2 (Benign) VERIFIED BY: / *ELECTRONICALLY FILED* [facility] [place] [facility] Encounter Notes: All associated encounter notes This section contains the clinical notes associated to the Encounter. Date/Time Encounter Note(s) Provider Source Feb 27, 2024 01:58 PM PHARMACY OUTPATIEN T MEDICATION MGT NOTE: LOCAL TITLE: COMMUNITY PHARMACY PRESCRIPTION NOTE STANDARD TITLE: PHARMACY OUTPATIENT MEDICATION MGT NOTE DATE OF NOTE: FEB 27, 2024@13:58 ENTRY DATE: FEB 27, 2024@13:58:33 AUTHOR: LINNEA WHEELER COSIGNER: URGENCY: STATUS: COMPLETED [place] was approved for community care [facility] [place] [address] option 3 Tax ID: [id number] GROUP Referral Number: [id number] Priority: Routine Referral Issue Date: 2024-01-19 Expiration [...] can be considered. Time Spent: 30 MIN /meet WHEELER PHARMD CLINICAL FLORAL ARTIST Signed: 02/27/2024 14:30 Receipt Acknowledged By: 02/27/2024 15:24 /mat/ PERLA ARANDA [employer] LINNEA WHEELER [facility] ([id number])
--- OUTSIDE RECORDS SUMMARY | 2024-06-15 10:49 | XMS_ITS | Encounter Summary ---
Author Name Department of [place] Organization Department [place] Address [address] [place] [address] Care Team Providers Care Hot Plate Plywood Press Feeder Name Role Phone TRINH FRANCO Primary [...] Relationship to Policy Gibson CAREMARK PRESCRIPT ION [facility] Dec 21, 2022 [id number] Jelani ALVAREZ PATIENT [employer] [facility] ([id number]) PRESCRIPT ION [facility] Jun 07, 2022 [id number] [phone] Jelani ALVAREZ PATIENT [facility] ORGANIZAT ION [facility] STATE [facility] Y Jun 07, 2022 [id number] [phone] Jelani ALVAREZ PATIENT Selected Encounter This section includes the information on record at [place] for the Encounter. Date/Time Encounter Type Encounter Description Reason Pro vider Source Mar 09, 2024 12:00 AM Outpatient Encounter COMMUNITY CARE CONSULT IHE Encounter Template Text not used by VA Plan of Treatment: Future Appointments (+ 6 months) and Future Tests (+/- 45 days) The Plan of Treatment section includes future care activities for the patient from all [place] [facility]. This section includes future appointments and future orders which are active, pending or scheduled. Future Appointments This section includes appointments that were scheduled to occur 6 months from the date of the Encounter, up to a maximum of 20 appointments. The data comes from all [place] treatment facilities. Appointment Date/Time Appointment Type Appointme nt Facility Name Apr 16, 2024 11:00 AM AMBULATORY - PSYCHIATRY [facility] [place] [facility] May 06, 2024 01:00 PM AMBULATORY - MEDICINE [facility] [place] [facility] May 14, 2024 11:00 AM AMBULATORY - PSYCHIATRY [facility] [place] [facility] May 14, 2024 01:00 PM AMBULATORY - PSYCHIATRY [facility] [place] [facility] May 28, 2024 01:00 PM AMBULATORY - PSYCHIATRY [facility] [place] [facility] Jun 11, 2024 01:30 PM AMBULATORY - PSYCHIATRY [facility] [place] [facility] Jun 11, 2024 02:00 PM AMBULATORY - PSYCHIATRY [facility] [place] [facility] Jun 15, 2024 10:45 AM AMBULATORY - MEDICINE [facility] [place] [facility] Jun 18, 2024 01:00 PM AMBULATORY - PSYCHIATRY [facility] [place] [facility] Jun 25, 2024 01:00 PM AMBULATORY - PSYCHIATRY [facility] [place] [facility] Jul 02, 2024 01:00 PM AMBULATORY - PSYCHIATRY [facility] [place] [facility] Jul 09, 2024 01:00 PM AMBULATORY - PSYCHIATRY [facility] [place] [facility] Jul 16, 2024 01:00 PM AMBULATORY - PSYCHIATRY [facility] [place] [facility] Jul 19, 2024 10:00 AM AMBULATORY - PSYCHIATRY [facility] [place] [facility] Jul 23, 2024 01:00 PM AMBULATORY - PSYCHIATRY [facility] [place] [facility] Aug 19, 2024 02:00 PM AMBULATORY - MEDICINE [place] C [facility] [place] [facility] Advance Directives: All historical and current Section Date Range: From patient's date of to the date document was created. This section includes ALL of a patient's completed or amended [place] Advance and Rescinded Directives. The entries below indicate that a directive exists for the patient, but an actual copy is not included with this document. The data comes from all [place] facilities. Date Advance Directives Provider Source Mar 25, 2023 ADVANCE DIRECTIVE PETROS MOTLEY [facility] Radiology Reports: +/- 30 days of [...] the Encounter. The data comes from all [place] treatment facilities. Date/Time Radiology Report Provider Source Mar 09, 2024 08:45 AM OUTSIDE MAMMO/SCRE ENING, INCLUDING CAD, BILAT: JAYLAN ALVAREZ [id number] -1980 F Exm Date: MAR 09, 2024@08:45 Req Phys: TRINH FRANCO Pat Loc: CWM/NO/PACT 5 (Req'g Loc) Img Loc: OUTSIDE GENERAL RADIOLOGY Service: Unknown Screen: Patient is unable to answer or is unsure Screen Comment: cc exam (Case 196 COMPLETE) OUTSIDE MAMMO/SCREENING, INCLUDIN(RAD Detailed) CPT:14756 Reason for Study: screening Clinical History: Report Status: Electronically Filed Date Reported: MAR 09, 2024 Report: Community care exam; see CPRS/JLV for outside radiology report/results Impression: Community care exam; see CPRS/JLV for outside radiology report/results Primary Diagnostic Code: BI-RADS CATEGORY 2 (Benign) VERIFIED BY: / *ELECTRONICALLY FILED* [place] [facility] [place] [facility] Encounter Notes: All associated encounter notes This section contains the clinical notes associated to the Encounter. Date/Time Encounter Note(s) Provider Source Mar 09, 2024 12:00 AM NONVA CONSULT: LOCAL TITLE: COMMUNITY CARE-CONSULT RESULT NOTE STANDARD TITLE: NONVA CONSULT DATE OF NOTE: MAR 09, 2024 ENTRY DATE: MAR 23, 2024@12:02:43 AUTHOR: DAVID CABRERA EXP COSIGNER: URGENCY: STATUS: COMPLETED VistA Imaging - Scanned Document SCANNED DOCUMENT SIGNATURE NOT REQUIRED Electronically Filed: 03/23/2024 by: DAVID LLOYD [facility]
--- OUTSIDE RECORDS SUMMARY | 2024-06-15 10:49 | XMS_ITS | Encounter Summary ---
Author Name Department of [place] ([place]) Organization [facility] ([place]) Address [address] [place] [address] Care Team Providers Care Filler Spreader Name Role Phone TRINH FRANCO Primary Care [...] Relationship to Policy Gibson CAREMARK PRESCRIPT ION [facility] Dec 21, 2022 [id number] Jelani ALVAREZ PATIENT [facility] ([id number]) PRESCRIPT ION [facility] Jun 07, 2022 [id number] [phone] Jelani ALVAREZ PATIENT [facility] CE ORGANIZAT ION [facility] Jun 07, 2022 [id number] Jelani ALVAREZ PATIENT Selected Encounter This section includes the information on record at [place] for the Encounter. Date/Time Encounter Type Encounter Description Reason Pro vider Source Dec 08, 2023 12:00 AM Outpatient Encounter EVENT (HISTORICAL) IHE Encounter Template Text not used by VA Plan of Treatment: Future Appointments (+ 6 months) and Future Tests (+/- 45 days) The Plan of Treatment section includes future care activities for the patient from all [place] [facility]. This section includes future appointments and future orders which are active, pending or scheduled. Future Appointments This section includes appointments that were scheduled to occur 6 months from the date of the Encounter, up to a maximum of 20 appointments. The data comes from all [facility]. Appointment Date/Time Appointment Type Appointme nt Facility Name Jan 12, 2024 02:30 PM AMBULATORY MEDICINE [place] [facility] [place] [facility] Jan 16, 2024 11:00 AM AMBULATORY - REHAB [facility] Jan 22, 2024 09:15 AM AMBULATORY MEDICINE [place] [facility] [place] [facility] Jan 28, 2024 09:00 AM AMBULATORY MEDICINE [place] [facility] [place] [facility] Feb 25, 2024 09:30 AM AMBULATORY - REHAB [facility] Feb 27, 2024 01:30 PM AMBULATORY PSYCHIATRY [place] [facility] [place] [facility] Mar 09, 2024 08:45 AM AMBULATORY MEDICINE [place] [facility] [place] [facility] Apr 16, 2024 11:00 AM AMBULATORY - PSYCHIATRY [place] [facility] [place] [facility] May 06, 2024 01:00 PM AMBULATORY MEDICINE [place] [facility] [place] [facility] May 14, 2024 11:00 AM AMBULATORY - PSYCHIATRY [place] [facility] [place] [facility] May 14, 2024 01:00 PM AMBULATORY PSYCHIATRY [place] [facility] [place] [facility] May 28, 2024 01:00 PM AMBULATORY - PSYCHIATRY [place] [facility] [place] [facility] Advance Directives: All historical and current Section Date Range: From patient's date of to the date document was created. This section includes ALL of a patient's completed or amended [place] Advance and Rescinded Directives. The entries below indicate that a directive exists for the patient, but an actual copy is not included with this document. The data comes from all [facility]. Date Advance Directives Provider Source Mar 25, 2023 ADVANCE DIRECTIVE [facility] Encounter Notes: All associated encounter notes This section contains the clinical notes associated to the Encounter. Date/Time Encounter Note(s) Provider Source Dec 08, 2023 12:00 AM NONVA NOTE: LOCAL TITLE: NON-VA OUTPATIENT NOTES STANDARD TITLE: NONVA NOTE DATE OF NOTE: DEC 08, 2023 ENTRY DATE: FEB 20, 2024@09:12:32 AUTHOR: ZENIA AGUIAR EXP COSIGNER: URGENCY: STATUS: COMPLETED VistA Imaging - Scanned Document SCANNED DOCUMENT SIGNATURE NOT REQUIRED Electronically Filed: 02/20/2024 by: ZENIA HAM [place] [facility] [facility]
--- OUTSIDE RECORDS SUMMARY | 2024-06-15 10:49 | XMS_ITS | Encounter Summary ---
Author Name Department of Vetera Affairs ([place]) Organization Department of Veter[facility] [place] Affairs [place]) Address [address] [place] [address] Care Team Providers Care Freight Weigher Name Role Phone TRINH FRANCO Primary Care [...] Relationship to Policy Gibson CAREMARK PRESCRIPT ION [facility] Dec 21, 2022 [id number] Jelani ALVAREZ PATIENT [facility] ([id number]) PRESCRIPT ION [facility] Jun 07, 2022 [id number] Jelani ALVAREZ PATIENT [facility] CE ORGANIZAT ION [facility] Jun 07, 2022 [id number] [phone] [phone] Jelani ALVAREZ PATIENT Selected Encounter This section includes the information on record at [place] for the Encounter. Date/Time Encounter Type Encounter Description Reason Provider Source Feb 27, 2024 01:30 PM OFFICE O/P EST LOW 20 MIN [facility] - IND ICD-10-CM F34.1 Dysthymic disorder JENNIFER PLAUMBO IHE Encounter Template Text not used by ID Assessments - Encounter Diagnoses This section includes the primary and secondary diagnoses documented for the Encounter. Date/Time Primary/Secondary Diagnosis Diagnosis Name Provider Source Feb 27, 2024 01:49 PM PRIMARY Dysthymic disorder JENNIFER PALUMBO Plan of Treatment: Future Appointments (+ 6 months) and Future Tests (+/- 45 days) The Plan of Treatment section includes future care activities for the patient from all [place] treatmentfacount includes [facility]. This section includes future appointments and future orders which are active, pending or scheduled. Future Appointments This section includes appointments that were scheduled to occur 6 months from the date of the Encounter, up to a maximum of 20 appointments. The data comes from all ID treatment facilities. Appointment Date/Time Appointment Type Appointme nt Facility Name Mar 09, 2024 08:45 AM AMBULATORY - MEDICINE [place] [facility] [place] [facility] Apr 16, 2024 11:00 AM AMBULATORY - PSYCHIATRY [facility] [place] [facility] May 06, 2024 01:00 PM AMBULATORY - MEDICINE [facility] [place] [facility] May 14, 2024 11:00 AM AMBULATORY - PSYCHIATRY [facility] [place] [facility] May 14, 2024 01:00 PM AMBULATORY - PSYCHIATRY [facility] [place] [facility] May 28, 2024 01:00 PM AMBULATORY - PSYCHIATRY [facility] [place] [facility] Jun 11, 2024 01:30 PM AMBULATORY - PSYCHIATRY [facility] [place] [facility] Jun 11, 2024 02:00 PM AMBULATORY - PSYCHIATRY [facility] [place] [facility] Jun 15, 2024 10:45 AM AMBULATORY - MEDICINE [facility] [place] [facility] Jun 18, 2024 01:00 PM AMBULATORY - PSYCHIATRY [facility] [place] [facility] Jun 25, 2024 01:00 PM AMBULATORY - PSYCHIATRY [facility] [place] [facility] Jul 02, 2024 01:00 PM AMBULATORY - PSYCHIATRY [facility] [place] [facility] Jul 09, 2024 01:00 PM AMBULATORY - PSYCHIATRY [facility] [place] [facility] Jul 16, 2024 01:00 PM AMBULATORY - PSYCHIATRY [facility] [place] [facility] Jul 19, 2024 10:00 AM [facility] Jul 23, 2024 01:00 PM AMBULATORY - PSYCHIATRY ID [facility] Aug 19, 2024 02:00 PM AMBULATORY - MEDICINE [facility] Social History: Smoking Status (Most current) and Tobacco Use (All prior to encounter date) This section includes the most current, and the historical, smoking and tobacco- related health factors from the ID facility where the Encounter took place. Current Smoking Status This section includes the most current smoking, or tobacco-related health factor, from the ID facility where the Encounter took place. Date/Time Current Smoking Status Comment Claudia tello Mar 18, 2023 09:00 AM ID-TOBACCO NEVER USED WIRT Advance Directives: All historical and current Section Date Range: From patient's date of to the date document was created. This section includes ALL of a patient's completed or amended [place] Advance and Rescinded Directives. The entries below indicate that a directive exists for the patient, but an actual copy is not included with this document. The data comes from all ID facilities. Date Advance Directives Provider Source Mar 25, 2023 ADVANCE DIRECTIVE [facility]ROS [facility] Radiology Reports: +/- 30 [...] the Encounter. The data comes from all ID treatment facilities. Date/Time Radiology Report Provider Source Mar 09, 2024 08:45 AM OUTSIDE MAMMO/SCRE ENING, INCLUDING CAD, BILAT: JAYLAN ALVAREZ [id number] -[id number] F Exm Date: MAR 09, 2024@08:45 Req Phys: TRINH FRANCO Pat Loc: CWM/NO/PACT 5 (Req'g Loc) Img Loc: OUTSIDE GENERAL RADIOLOGY Service: Unknown Screen: Patient is unable to answer or is unsure Screen Comment: cc exam (Case [id number] COMPLETE) OUTSIDE MAMMO/SCREENING, INCLUDIN(RAD Detailed) CPT:38448 Reason for Study: screening Clinical History: Report Status: Electronically Filed Date Reported: MAR 09, 2024 Report: Community care exam; see CPRS/JLV for outside radiology report/results Impression: Community care exam; see CPRS/JLV for outside radiology report/results Primary Diagnostic Code: BI-RADS CATEGORY 2 (Benign) VERIFIED BY: / *ELECTRONICALLY FILED* ID [facility] [place] [facility] Encounter Notes: All associated encounter notes This section contains the clinical notes associated to the Encounter. Date/Time Encounter Note(s) Provider Source Feb 27, 2024 01:30 PM TELEHEALTH NOTE: LOCAL TITLE: ID [employer] CONNECT PSYCHIATRIST NOTE STANDARD TITLE: TELEHEALTH NOTE DATE OF NOTE: FEB 27, 2024@13:30 ENTRY DATE: FEB 27, 2024@13:31:06 AUTHOR: JENNIFER PALUMBO EXP COSIGNER: URGENCY: STATUS: COMPLETED [employer] (VVC) Standard Documentation VVC Clinician Resources Only: E911 (Emergency Call Relay Center): [phone] National Veterans Crisis Line - 988 then press #1. [facility] Suicide Coordinator [phone], Ext. [phone]; Back-up Ext. [phone] [place] Police, Kassandra HERNANDEZ [phone] Introduction: Visit is being conducted by ID [employer]. Ingalls identified with 2 identifiers: [X] Full Name [X] Date of [ ] ID ID Card Emergency Plan: Ingalls confirmed and/or provided the following information in case of emergency or technology failure. PATIENT PHONE - PHONE NUMBER [CELLULAR] - Is patient phone number correct, if not, enter below: Ingalls's phone number: JAYLAN ALVAREZ [address], [place], [address] Ingalls's present location and address for appointment: same as above 's emergency contact name and phone number: unchanged reported that location is private and safe: Yes Informed Consent: Ingalls informed of the risks and benefits of Telehealth video care. Ingalls has the right to refuse video services. If refuses video visit, a mikb-sv-dlnv visit will be scheduled. verbalized consent for this video visit: Yes provided consent for any other persons present for visit: N/A If yes, who and relationship to patient: Secure visit: Visit was locked for security and privacy:Yes CHART REVIEW: seen for initial MH Consult 03/18/23 noting: Nash is a 42 year old [facility] Ingalls, presenting newly to the [facility] to engage in services and presenting for mental health due to frequent tearfulness. She presents with with depression and also screens positive for PTSD due to her job, which was in [employer] in [facility] and [...] TIME OF INITIAL VISIT WITH MYSELF 04/29/23: Ingalls reports no prior MH treatment. 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 She built a good group of friends who she stayed in touch with for a long time. 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 She was working in [employer] in [facility], in Jul 2002 and saw a lot of bodies as a result of that and friends that didn't come home. Is planning to pursue a claim about possible link between her RA and the anthrax vaccine. 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 Works 65 hours/ week INITIAL ASSESSMENT/ DIAGNOSIS AND RECOMMENDATIONS: Ingalls presents with dysthymic disorder, possible PTSD. She [...] PRESENTING SYMPTOMS AND CONDITION ON TODAY'S VISIT: Ingalls reports the Lexapro was more effective, it [...] Reinforced: If urgent treatment is needed, call [phone] or go to the nearest Emergency Room 2. To schedule or change an appointment, inquire about medication refills, etc: call office number during normal office hours Suicide Screen: C-SSRS Screening [place]-Suicide Severity Rating Scale (C-SSRS Screener) 1. Over [...]
--- OUTSIDE RECORDS SUMMARY | 2024-06-15 10:49 | XMS_ITS ---
Author Name Department of Vetera Affairs ([place]) Organization [facility] Address [address] [place] [address] Care Team Providers Care Electronic Industrial Controls Mechanic Name Role Phone TRINH FRANCO Primary Care [...] Relationship to Policy Gibson CAREMARK PRESCRIPT ION [facility] Dec 21, 2022 [id number] [phone] Jelani ALVAREZ PATIENT [facility] ([id number]) PRESCRIPT ION [facility] Jun 07, 2022 [id number] [phone] Jelani ALVAREZ PATIENT [facility] CE ORGANIZAT ION [facility] Jun 07, 2022 [id number] [id number] [phone] Jelani ALVAREZ PATIENT Selected Encounter This section includes the information on record at [place] for the Encounter. Date/Time Encounter Type Encounter Description Reason Pro vider Source Jan 19, 2024 09:26 AM Outpatient Encounter [facility] - IND IHE Encounter Template Text not used by VA Plan of Treatment: Future Appointments (+ 6 months) and Future Tests (+/- 45 days) The Plan of Treatment section includes future care activities for the patient from all [place] [facility]. This section includes future appointments and future orders which are active, pending or scheduled. Future Appointments This section includes appointments that were scheduled to occur 6 months from the date of the Encounter, up to a maximum of 20 appointments. The data comes from all [place] treatment facilities. Appointment Date/Time Appointment Type Appointme nt Facility Name Jan 22, 2024 09:15 AM AMBULATORY - MEDICINE [place] [facility] [place] [facility] Jan 28, 2024 09:00 AM AMBULATORY - MEDICINE [facility] [place] [facility] Feb 25, 2024 09:30 AM AMBULATORY - REHAB [facility] Feb 27, 2024 01:30 PM AMBULATORY - PSYCHIATRY [place] [facility] [place] [facility] Mar 09, 2024 08:45 AM AMBULATORY - MEDICINE [place] C [facility] [facility] Apr 16, 2024 11:00 AM AMBULATORY - PSYCHIATRY [facility] [place] [facility] May 06, 2024 01:00 PM AMBULATORY - MEDICINE [facility] [place] [facility] May 14, 2024 11:00 AM AMBULATORY - PSYCHIATRY [facility] [place] [facility] May 14, 2024 01:00 PM AMBULATORY - PSYCHIATRY [facility] [place] [facility] May 28, 2024 01:00 PM AMBULATORY - PSYCHIATRY [facility] [place] [facility] Jun 11, 2024 01:30 PM AMBULATORY - PSYCHIATRY [facility] [place] [facility] Jun 11, 2024 02:00 PM AMBULATORY - PSYCHIATRY [facility] [place] [facility] Jun 15, 2024 10:45 AM AMBULATORY - MEDICINE [facility] [place] [facility] Jun 18, 2024 01:00 PM AMBULATORY - PSYCHIATRY [facility] [place] [facility] Jun 25, 2024 01:00 PM AMBULATORY - PSYCHIATRY [facility] [place] [facility] Jul 02, 2024 01:00 PM AMBULATORY - PSYCHIATRY [facility] [place] [facility] Jul 09, 2024 01:00 PM AMBULATORY - PSYCHIATRY [facility] [place] [facility] Jul 16, 2024 01:00 PM AMBULATORY - PSYCHIATRY [facility] Jul 19, 2024 10:00 AM AMBULATORY - PSYCHIATRY [facility] Lab Results: +/- 30 days of the encounter This section includes the Chemistry and Hematology Lab Results on record with [place] for the patient. Radiology Reports and Pathology Reports are provided separately, in subsequent sections. Lab Results This section contains the Chemistry/Hematology Results that were resulted 30 days before or 30 daysafter the date of the Encounter. Date/Time Source Result Type Result - Unit Interpretation Reference Range Comment Jan 12, 2024 03:32 PM [facility] BASIC METABOLIC PANEL (non-fasting) Specimen Type: SERUM No comment entered. Ordering Provider: TRINH FRANCO Report Released Date/Time: Jan 12, 2024 03:18 PM Reporting Lab: [address] [address] Performing Lab: [facility] [address] [facility] [address] UREA NITROGEN 18 mg/dL 7-25 GLUCOSE 108 mg/dL H 65-100 SODIUM 136 mmol/L 135-145 POTASSIUM 4.4 mmol/L 3.5-5.0 CHLORIDE 103 mmol/L 100-110 CO2 27 meq/L 20-30 CREATININE, Serum 0.90 mg/dL 0.50-1.40 eGFR(CKD-EPI 2020) 81 mL/min >60 Jan 12, 2024 03:32 PM [facility] LIPID PANEL FASTING Specimen Type: SERUM No comment entered. Ordering Provider: TRINH FRANCO Report Released Date/Time: Jan 12, 2024 03:18 PM Reporting Lab: [facility] [address] [facility] [address] Performing Lab: [address] [address] CHOLESTEROL 200 mg/dL H TRIGLYCERIDE 64 mg/dL 0-150 LDL calculated 127 mg/dL 0-129 CHOL/HDL 3.3 HDL CHOLESTEROL 60 mg/dL 40-60 Jan 12, 2024 03:32 PM [facility] LIVER FUNCTION Specimen Type: SERUM No comment entered. Ordering Provider: TRINH FRANCO Report Released Date/Time: Jan 12, 2024 03:18 PM Reporting Lab: [facility] [address] [facility] [address] Performing Lab: [address] [address] PROTEIN,TOTAL 7.2 g/dL 6.0-8.3 ALBUMIN 3.8 g/dL 3.5-5.0 ALKALINE PHOSPHATASE 49 U/L 40-150 AST 15 U/L 5-34 ALT 18 U/L BILIRUBIN, TOTAL 0.8 mg/dL 0.2-1.2 Jan 12, 2024 03:32 PM [facility] CBC AND DIFF (AUTO) Specimen Type: BLOOD No comment entered. Ordering Provider: TRINH FRANCO Report Released Date/Time: Jan 12, 2024 03:18 PM Reporting Lab: [address] [address] Performing Lab: [address] [address] WBC 7.29 10*3/uL 4.50-11.00 RBC 3.82 10*6/uL [...] 10*3/uL 0.00-0.00 Jan 12, 2024 03:32 PM [facility] HEMOGLOBIN A1C PANEL Specimen Type: BLOOD [...] Jan 12, 2024 03:18 PM Reporting Lab: [facility] [address] [facility] [address] Performing Lab: [address] [address] HEMOGLOBIN A1C 4.6 4.0-5.6 Jan 12, 2024 03:32 PM [facility] TSH Specimen Type: SERUM No comment entered. Ordering Provider: TRINH FRANCO Report Released Date/Time: Jan 12, 2024 03:18 PM Reporting Lab: [facility] [address] [facility] [address] Performing Lab: [address] [address] TSH 1.67 u[IU]/mL 0.35-5.00 Advance Directives: All [...] this document. The data comes from all [place] facilities. Date Advance Directives Provider Source Mar 25, 2023 ADVANCE DIRECTIVE PETROS MOTLEY [facility] Encounter Notes: All associated encounter notes This section contains the clinical notes associated to the Encounter. Date/Time Encounter Note(s) Provider Source Jan 19, 2024 09:26 AM ADMINISTRATIVE NOT E: LOCAL TITLE: ADMINISTRATIVE NOTE STANDARD TITLE: ADMINISTRATIVE NOTE DATE OF NOTE: JAN 19, 2024@09:26 ENTRY DATE: JAN 19, 2024@09:27:01 AUTHOR: SWEHTA LR EXP COSIGNER: URGENCY: STATUS: COMPLETED ADMINISTRATIVE NOTE Has ADDENDA Budget Consultant received a message from looking to make an appointment with provider. Left a call back of [phone]. /mat/ SWETHA LR WORK FROM HOME Signed: 01/19/2024 09:28 Receipt Acknowledged By: 01/19/2024 09:41 /mat/ ANDREW GROSSMAN ADVANCED WORK FROM HOME 01/19/2024 09:47 /mat/ January Painting ADVANCED WORK FROM HOME 01/19/2024 ADDENDUM STATUS: COMPLETED leader writer spoke to and scd'd next vvc appt 02/27/2024 @ 1330. vvc link sent at this time. /mat/ ANDREW GROSSMAN ADVANCED WORK FROM HOME Signed: 01/19/2024 09:43 SWETHA LR
--- OUTSIDE RECORDS SUMMARY | 2024-06-15 10:49 | XMS_ITS | Encounter Summary ---
Author Name Department of Vetera Affairs ([place]) Organization [facility] ([place]) Address [address] [place] [address] Care Team Providers Care Cd Mixer Helper Name Role Phone TRINH FRANCO Primary [...] Relationship to Policy Gibson CAREMARK PRESCRIPT ION [facility] Dec 21, 2022 [id number] Jelani ALVAREZ PATIENT [employer] ([id number]) PRESCRIPT ION [facility] Jun 07, 2022 [id number] Jelani ALVAREZ PATIENT [facility] CE ORGANIZAT ION [facility] Jun 07, 2022 [id number] [phone] Jelani ALVAREZ PATIENT Selected Encounter This section includes the information on record at [place] for the Encounter. Date/Time Encounter Type Encounter Description Reason Provider Source Feb 20, 2024 02:48 PM Outpatient Encounter PRIMARY CARE/MEDICINE JYOTI MENSAH Encounter Template Text not used by [facility] Plan of Treatment: Future Appointments (+ 6 months) and Future Tests (+/- 45 days) The Plan of Treatment section includes future care activities for the patient from all [place] [facility]. This section includes future appointments and future orders which are active, pending or scheduled. Future Appointments This section includes appointments that were scheduled to occur 6 months from the date of the Encounter, up to a maximum of 20 appointments. The data comes from all [place] treatment facilities. Appointment Date/Time Appointment Type Appointme nt Facility Name Feb 25, 2024 09:30 AM AMBULATORY - REHAB [facility] Feb 27, 2024 01:30 PM AMBULATORY - [facility]CHIATRY [facility] [place] [facility] Mar 09, 2024 08:45 AM AMBULATORY - MEDICINE [place] [facility] [place] [facility] Apr 16, 2024 11:00 AM AMBULATORY - PS[facility]CHIATRY [facility] [place] [facility] May 06, 2024 01:00 PM AMBULATORY - MEDICINE [facility] [place] [facility] May 14, 2024 11:00 AM AMBULATORY - PS[facility]CHIATRY [facility] [place] [facility] May 14, 2024 01:00 PM AMBULATORY - PSYCHIATRY [facility] [place] [facility] May 28, 2024 01:00 PM AMBULATORY - PS[facility]CHIATRY [facility] [place] [facility] Jun 11, 2024 01:30 PM AMBULATORY - PS[facility]CHIATRY [facility] [place] [facility] Jun 11, 2024 02:00 PM AMBULATORY - PS[facility]CHIATRY [facility] [place] [facility] Jun 15, 2024 10:45 AM AMBULATORY - MEDICINE [facility] [place] [facility] Jun 18, 2024 01:00 PM AMBULATORY - PSYCHIATRY [facility] [place] [facility] Jun 25, 2024 01:00 PM AMBULATORY - PSYCHIATRY [facility] [place] [facility] Jul 02, 2024 01:00 PM AMBULATORY - PSYCHIATRY [facility] [place] [facility] Jul 09, 2024 01:00 PM AMBULATORY - PSYCHIATRY [facility] [place] [facility] Jul 16, 2024 01:00 PM AMBULATORY - PSYCHIATRY [facility] [place] [facility] Jul 19, 2024 10:00 AM AMBULATORY - PSYCHIATRY [facility] [place] [facility] Jul 23, 2024 01:00 PM AMBULATORY - PSYCHIATRY [place] [facility] Aug 19, 2024 02:00 PM AMBULATORY - MED[facility] [place] [facility] Advance Directives: All historical and current Section Date Range: From patient's date of to the date document was created. This section includes ALL of a patient's completed or amended [place] Advance and Rescinded Directives. The entries below indicate that a directive exists for the patient, but an actual copy is not included with this document. The data comes from all [place] facilities. Date Advance Directives Provider Source Mar 25, 2023 ADVANCE DIRECTIVE [facility]ROS [facility] Radiology Reports: +/- 30 days of [...] the Encounter. The data comes from all [place] treatment facilities. Date/Time Radiology Report Provider Source Mar 09, 2024 08:45 AM OUTSIDE MAMMO/SCRE ENING, INCLUDING CAD, BILAT: JAYLAN ALVAREZ [id number] -1980 F Exm Date: MAR 09, 2024@08:45 Req Phys: TRINH FRANCO Pat Loc: CWM/NO/PACT 5 (Req'g Loc) Img Loc: OUTSIDE GENERAL RADIOLOGY Service: Unknown Screen: Patient is unable to answer or is unsure Screen Comment: cc exam (Case [id number] COMPLETE) OUTSIDE MAMMO/SCREENING, INCLUDIN(RAD Detailed) CPT:65668 Reason for Study: screening Clinical History: Report Status: Electronically Filed Date Reported: MAR 09, 2024 Report: Community care exam; see CPRS/JLV for outside radiology report/results Impression: Community care exam; see CPRS/JLV for outside radiology report/results Primary Diagnostic Code: BI-RADS CATEGORY 2 (Benign) VERIFIED BY: / *ELECTRONICALLY FILED* [facility] Encounter Notes: All associated encounter notes This section contains the clinical notes associated to the Encounter. Date/Time Encounter Note(s) Provider Source Feb 20, 2024 02:48 PM PRIMARY CARE SECUR E MESSAGING: LOCAL TITLE: PRIMARY CARE SECURE MESSAGING STANDARD TITLE: PRIMARY CARE SECURE MESSAGING DATE OF NOTE: FEB 20, 2024@14:48 ENTRY DATE: FEB 20, 2024@14:48:46 AUTHOR: JYOTI MENSAH EXP COSIGNER: URGENCY: STATUS: COMPLETED ------Original Message ------ Sent: 02/18/2024 10:21 PM ET From: JAYLAN ALVAREZ To: Yuli FRANCO_PRIMARY CARE_[employer] [facility] [facility] [employer] Subject: Medication:Prescriptions Good evening, I went to refill prescriptions but noticed they show as no longer available because my services were stopped and reactivated. The prescriptions I am looking to refill at this time are fexofenadine for allergies and vitamin D ------Original Message ------ Sent: 02/20/2024 02:48 PM ET From: JYOTI MENSAH To: JAYLAN ALVAREZ Subject: Medication:Prescriptions Hello I will forward this to your provider Take Care Jyoti Mensah RN /mat/ Jyoti Mensah RN, BSN Primary Care Nurse Change Management Analyst Signed: 02/20/2024 14:48 Receipt Acknowledged By: 02/24/2024 14:17 /mat/ CLAUDIA DE LOS SANTOS Nurse Practitioner JYOTI MENSAH [facility]
--- OUTSIDE RECORDS SUMMARY | 2024-06-15 10:50 | XMS_ITS | Encounter Summary ---
Author Name Department of Vetera Affairs ([place]) Organization [facility] ([place]) Address [address] [place] [address] Care Team Providers Care Summer Camp Counselor Name Role Phone TRINH FRANCO Primary Care [...] Relationship to Policy Gibson CAREMARK PRESCRIPT ION [facility] Dec 21, 2022 [id number] [phone] Jelani ALVAREZ PATIENT [employer] ([id number]) PRESCRIPT ION [facility] Jun 07, 2022 [id number] [phone] Jelani ALVAREZ PATIENT [facility] ORGANIZAT ION [facility] Jun 07, 2022 [id number] [phone] Jelani ALVAREZ PATIENT Selected Encounter This section includes the information on record at [place] for the Encounter. Date/Time Encounter Type Encounter Description Reason Pro vider Source May 06, 2024 01:00 PM Outpatient Encounter RHEUMATOLOGY/ARTHRITI S IHE Encounter Template Text not used by VA Plan of Treatment: Future Appointments (+ 6 months) and Future Tests (+/- 45 days) The Plan of Treatment section includes future care activities for the patient from all [place] [facility]. This section includes future appointments and future orders which are active, pending or scheduled. Future Appointments This section includes appointments that were scheduled to occur 6 months from the date of the Encounter, up to a maximum of 20 appointments. The data comes from all [facility] facilities. Appointment Date/Time Appointment Type Appointme nt Facility Name May 14, 2024 11:00 AM AMBULATORY - PS[facility]CHIATRY [facility] [place] [facility] May 14, 2024 01:00 PM AMBULATORY - PSYCHIATRY [facility] [place] [facility] May 28, 2024 01:00 PM AMBULATORY - PSYCHIATRY [facility] [place] [facility] Jun 11, 2024 01:30 PM AMBULATORY - PSYCHIATRY [facility] [place] [facility] Jun 11, 2024 02:00 PM AMBULATORY - PSYCHIATRY [place] [facility] [place] [facility] Jun 15, 2024 10:45 AM AMBULATORY - MEDICINE [place] [facility] [place] [facility] Jun 18, 2024 01:00 PM AMBULATORY - PSYCHIATRY [facility] [place] [facility] Jun 25, 2024 01:00 PM AMBULATORY - PSYCHIATRY [facility] [place] [facility] Jul 02, 2024 01:00 PM AMBULATORY - PSYCHIATRY [facility] [place] [facility] Jul 09, 2024 01:00 PM AMBULATORY - PSYCHIATRY [facility] [place] [facility] Jul 16, 2024 01:00 PM AMBULATORY - PSYCHIATRY [place] [facility] [place] [facility] Jul 19, 2024 10:00 AM AMBULATORY - PSYCHIATRY [facility] [place] [facility] Jul 23, 2024 01:00 PM AMBULATORY - PSYCHIATRY [facility] [place] [facility] Aug 19, 2024 02:00 PM AMBULATORY - MEDICINE [place] [facility] [place] [facility] Active, Pending, and Scheduled Orders This section includes a listing of several types of active, pending, and scheduled orders, including clinic medications orders, diagnostic test orders, procedure orders and consult orders; where the start date of the order is 45 days before the date of the Encounter or 45 days after the date of theEncounter. The data comes from all [place] treatment facilities. Test Date/Time Test Type Test Details Facility Name May 10, 2024 03:43 PM Consult Order COMMUNITY CARE-UROLOGY Cons Family Worker's Choice [facility] Lab Results: +/- 30 days of the encounter This section includes the Chemistry and Hematology Lab Results on record with [place] for the patient. Radiology Reports and Pathology Reports are provided separately, in subsequent sections. Lab Results This section contains the Chemistry/Hematology Results that were resulted 30 days before or 30 daysafter the date of the Encounter. Date/Time Source Result Type Result - Unit Interpretation Reference Range Comment May 10, 2024 08:51 AM [facility] HLA-B27 (QU) Specimen Type: BLOOD Comment: normalcy status - Abnormal Test Performed by [facility] [employer] [facility], [address] [place] [address] Rodger Bender M.D., Ph.D., Director of Laboratories , [facility] [id number] TEST PERFORMED AT: , Ordering Provider: LEANDRA BAEZ V Report Released Date/Time: May 06, 2024 01:47 PM Reporting Lab: [facility] [address] [facility] [address] Performing Lab: [facility] [address] [address] HLA-B27 Positive Negative May 10, 2024 08:51 AM [facility] T-SPOT TB PANEL Specimen Type: BLOOD Comment: A negative test [...] test. For additional information, please refer to http://education .Promisec/faq/ELW411 (This link is being provided for informational/ educational purposes only.) Test Performed by [facility], [employer] [facility], [address] [place] [address] Rodger Bender M.D., Ph.D., Director of Laboratories , [place] [id number] TEST PERFORMED AT: , Ordering Provider: LEANDRA BAEZ V Report Released Date/Time: May 06, 2024 01:47 PM Reporting Lab: [address] [address] Performing Lab: [facility] [address] [address] [id number] T (o) Negative Negative T-SPOT-PNLA 0 T-SPOT-PNLB 2 F-TPOO-SPDOO RL Passed [id number] RL Passed May 10, 2024 08:51 AM [facility] JOSEPH SCREEN/TITER Specimen Type: SERUM No comment entered. Ordering Provider: LEANDRA BAEZ V Report Released Date/Time: May 06, 2024 01:47 PM Reporting Lab: [facility] [address] [facility] [address] Performing Lab: [facility] [address] [facility] [address] JOSEPH SCREEN NEG NEG <1:40 May 10, 2024 08:51 AM [facility] HEPATITIS B CORE (Total) Ab Specimen Type: SERUM Comment: Hep B Core, [...] May 06, 2024 01:47 PM Reporting Lab: [address] [address] Performing Lab: [address] [address] HEPATITIS B CORE (Total) Ab Non Reactive Non Reactive May 10, 2024 08:51 AM [facility] HEPATITIS B SURFACE ANTIBODY (HBsAb)-WH Specimen Type : SERUM Comment: Hep B Core, Total: This [...] May 06, 2024 01:47 PM Reporting Lab: [address] [address] Performing Lab: [address] [address] HBsAb REACTIVE Non Reactive May 10, 2024 08:51 AM [facility] CBC Specimen Type: BLOOD No comment entered. Ordering Provider: LEANDRA BAEZ V Report Released Date/Time: May 06, 2024 01:47 PM Reporting Lab: [address] [address] Performing Lab: [address] [address] WBC 5.62 10*3/uL 4.50-11.00 RBC 3.76 10*6/uL L 3.93-5.16 HGB 12.3 g/dL 12-15.2 HCT 35.8 L 36.6-45.6 MCV 95.2 fL 82-99 MCHC 34.4 g/dL 30.8-35.1 PLT 322 10*3/uL 140-360 RDW-CV 11.8 L 12.0-16.0 MCH 32.7 pg H 26.2-32.6 May 10, 2024 08:51 AM [facility] HEPATITIS C ANTIBODY (HCV)-ARC Specimen Type: SERUM Comment: Hep C Ab: No HCV antibody detected. If recent infection is suspected or other evidence suggests HCV infection, consider HCV nucleic acid testing Ordering Provider: LEANDRA BAEZ V Report Released Date/Time: May 06, 2024 01:47 PM Reporting Lab: [address] [address] Performing Lab: [address] [address] HEPATITIS C ANTIBODY NON-REACTIVE NON-REACTI VE May 10, 2024 08:51 AM [facility] LIVER FUNCTION Specimen Type: SERUM No comment entered. Ordering Provider: LEANDRA BAEZ V Report Released Date/Time: May 06, 2024 01:47 PM Reporting Lab: [address] [address] Performing Lab: [address] [address] PROTEIN,TOTA L 6.3 g/dL 6.0-8.3 ALBUMIN 3.5 g/dL 3.5-5.0 ALKALINE PHOSPHATASE 46 U/L 40-150 AST 14 U/L 5-34 ALT 11 U/L BILIRUBIN, TOTAL 0.4 mg/dL 0.2-1.2 May 10, 2024 08:51 AM [facility] URIC ACID Specimen Type: SERUM No comment entered. Ordering Provider: LEANDRA BAEZ V Report Released Date/Time: May 06, 2024 01:47 PM Reporting Lab: [facility]ITALRJACK[facility]ENTERTRN [facility]USETS [facility] [address] [facility] [address] Performing Lab: [facility]OS[facility]ITALRL TRN [facility]ENTERUSETS [facility] [address] [facility] [address] URIC ACID 4.4 mg/dL 2.6-6 May 10, 2024 08:51 AM [facility]ITALRL TRN [facility]ENTERUSETS [facility] PO4 Specimen Type: SERUM No comment entered. Ordering Provider: LEANDRA BAEZ V Report Released Date/Time: May 06, 2024 01:47 PM Reporting Lab: [facility]OSPITALRJACKSON MEDICAL CENTERTRN [facility]ENTERUSEBR[facility] [address] [facility] [address] Performing Lab: [facility] HOSPITALRRUSSELLVILLE HOSPITALN [facility]ENTERUSEBROOKD[facility] [address] [facility] [address] PO4 4.0 mg/dL 2.5-5.0 May 10, 2024 08:[address] TSH Specimen Type: SERUM No comment entered. Ordering Provider: LEANDRA BAEZ V Report Released Date/Time: May 06, 2024 01:47 PM Reporting Lab: [facility] HOSPITALRRUSSELLVILLE HOSPITALN [facility]ENTERUSEBR[facility] [address] [facility] [address] Performing Lab: [facility] HOSPITALRRUSSELLVILLE HOSPITALN [facility]ENTERUSETS [facility] [address] [facility] [address] TSH 1.38 u[IU]/mL 0.35-5.00 May 10, 2024 08:[address] [facility] BASIC METABOLIC PANEL (non-fasting) Specimen Type: SERUM No comment entered. Ordering Provider: LEANDRA BAEZ V Report Released Date/Time: May 06, 2024 01:47 PM Reporting Lab: [facility] HOSPITALRRUSSELLVILLE HOSPITALN [facility]ENTERUSETS [facility] [address] [facility] [address] Performing Lab: [facility] HOSPITALRRUSSELLVILLE HOSPITALN [facility] CENTERUSETS [address] [address] UREA NITROGEN 20 mg/dL 7-25 GLUCOSE 83 [...] 64 134/95 16 100 8 139 26 [facility] Advance Directives: All historical and current Section Date Range: From patient's date of to the date document was created. This section includes ALL of a patient's completed or amended [place] Advance and Rescinded Directives. The entries below indicate that a directive exists for the patient, but an actual copy is not included with this document. The data comes from all [place] facilities. Date Advance Directives Provider Source Mar 25, 2023 ADVANCE DIRECTIVE EPTROS [facility] Radiology Reports: +/- 30 days of [...] the Encounter. The data comes from all [place] treatment facilities. Date/Time Radiology Report Provider Source May 10, 2024 10:36 AM HAND 3 OR MORE VIEWS: JAYLAN ALVAREZ Zhou [id number] -1980 F Exm Date: MAY 10, 2024@10:36 Req Phys: ELANDRA BAEZ V Pat Loc: CWM/NO/RHEUMATOLOGY B (Req'g L Img Loc: [facility]/BUILDING 1 Service: Unknown Screen: Patient answered no [facility] [place] [address] (Case 27 COMPLETE) FOOT 3 OR MORE VIEWS (RIGHT) (RAD Detailed) CPT:65681 Proc Modifiers : RIGHT CPT Modifiers : RT RIGHT SIDE Reason for Study: Evaluate for evid of spondyloarthropathy/erosion (Case 28 COMPLETE) FOOT 3 OR MORE VIEWS(LEFT) (RAD Detailed) CPT:22403 Proc Modifiers : LEFT CPT Modifiers : LT LEFT SIDE Clinical History: Pt with hx of on etanercept. Reports hand swelling Report Status: Verified Date Reported: MAY 10, 2024 Date Verified: MAY 10, 2024 Syrup Maker Cook E-Sig:/ES/ANTONELLA BEARD JR Report: Study: Weight-bearing AP, [...] Primary Interpreting Staff: ANTONELLA BEARD JR, Radiologist (Syrup Maker Cook) /EAD ANTONELLA BEARD JR [facility] May 10, 2024 10:35 AM SPINE LUMBOSACRAL MIN 4 VIEWS: JAYLAN ALVAREZ [id number] -1980 F Exm Date: MAY 10, 2024@10:35 Req Phys: LEANDRA BAEZ V Pat Loc: CWM/NO/RHEUMATOLOGY B (Req'g L Img Loc: [facility] Service: Unknown Screen: Patient answered no [facility] [place] [address] (Case 25 COMPLETE) SPINE LUMBOSACRAL MIN 4 VIEWS (RAD Detailed) CPT:51754 Reason for Study: Evaluate for evid of spondyloarthropathy Clinical History: Pt with hx of on etanercept Report Status: Verified Date Reported: MAY 10, 2024 Date Verified: MAY 10, 2024 Syrup Maker Cook E-Sig:/ES/ANTONELLA BEARD JR Report: Study: AP, left [...] Primary Interpreting Staff: ANTONELLA BEARD JR, Radiologist (Syrup Maker Cook) /ANTONELLA CANO JR [facility] May 10, 2024 10:35 AM SPINE CERVICAL, 4 OR 5 VIEWS: KIMJAYLAN TOURE [id number] -1980 F Exm Date: MAY 10, 2024@10:35 Req Phys: LEANDRA BAEZ V Pat Loc: CWM/NO/RHEUMATOLOGY B (Req'g L Img Loc: [facility] 1 Service: Unknown Screen: Patient answered no [facility]OSPITALRRUSSE[place] [address] (Case 26 COMPLETE) SPINE CERVICAL, 4 OR 5 VIEWS (RAD Detailed) CPT:26364 Reason for Study: Evaluate for evid of spondyloarthropathy Clinical History: Pt with hx of on etanercept Report Status: Verified Date Reported: MAY 10, 2024 Date Verified: MAY 10, 2024 Syrup Maker Cook E-Sig:/ES/ANTONELLA BEARD JR Report: Study: AP, lateral [...] Primary Interpreting Staff: ANTONELLA BEARD JR, Radiologist (Syrup Maker Cook) /ANTONELLA CANO JR [facility]OS[facility]ITALRRUSSELLVILLE HOSPITALN [facility] May 10, 2024 10:34 AM FOOT 3 OR MORE VIEWS (RIGHT): KIMJAYLAN G [id number] -1980 F Exm Date: MAY 10, 2024@10:34 Req Phys: LEANDRA BAEZ V Pat Loc: CWM/NO/RHEUMATOLOGY B (Req'g L Img Loc: [facility]/BUILDING 1 Service: Unknown Screen: Patient answered no [facility] [address] (Case 23 COMPLETE) HAND 3 OR MORE VIEWS(LEFT) (RAD Detailed) CPT:68702 Reason for Study: Evaluate for evid of erosion - bilateral exam (Case 24 COMPLETE) HAND3 OR MORE VIEWS(RIGHT) (RAD Detailed) CPT:48728 Clinical History: Pt with hx of on etanercept. Reports foot swelling also hx of kidney stones Report Status: Verified Date Reported: MAY 10, 2024 Date Verified: MAY 10, 2024 Syrup Maker Cook E-Sig:/ES/ANTONELLA BEARD JR Report: Study: AP, [place], [...] Primary Interpreting Staff: ANTONELLA BEARD JR, Radiologist (Syrup Maker Cook) /ANTONELLA CANO JR [facility] Encounter Notes: All associated encounter notes This section contains the clinical notes associated to the Encounter. Date/Time Encounter Note(s) Provider Source May 06, 2024 01:11 PM RHEUMATOLOGY CONSULT: LOCAL TITLE: CONSULT REPORT/RHEUMATOLOGY STANDARD TITLE: RHEUMATOLOGY CONSULT DATE OF NOTE: MAY 06, 2024@13:11 ENTRY DATE: MAY 06, 2024@13:11:51 AUTHOR: LEANDRA BAEZ V EXP COSIGNER: URGENCY: STATUS: COMPLETED CONSULT REPORT/RHEUMATOLOGY Has [...] states 2 years ago - was in [facility] and diagnosed with colitis - but on Abx - she has had recurrence of bowel symptoms - getting colonoscopy week before Thanksgiving. September [facility] + pain in outer hips. 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 /mat/ LEANDRA BAEZ STAFF PHYSICIAN Signed: 05/13/2024 13:49 LEANDRA BAEZ CNTRL W[facility]N [facility]
--- OUTSIDE RECORDS SUMMARY | 2024-06-15 10:50 | XMS_ITS | Encounter Summary ---
Author Name [facility] [place] Organization [facility] [place] [facility] [place] Address [address] [place] [address] Care Team Providers Care Radiography Technician Name Role Phone TRINH FRANCO Primary [...] Relationship to Policy Gibson CAREMARK PRESCRIPT ION [facility] Dec 21, 2022 [phone] Jelani ALVAREZ PATIENT [employer] ([id number]) PRESCRIPT ION [facility] Jun 07, 2022 [id number] [phone] Jelani ALVAREZ PATIENT [facility] CE ORGANIZAT ION [facility] Y Jun 07, 2022 [id number] [phone] Jelani ALVAREZ PATIENT Selected Encounter This section includes the information on record at [place] for the Encounter. Date/Time Encounter Type Encounter Description Reason Provider Source Apr 16, 2024 11:00 AM OFFICE O/P EST MOD 30 [facility] - IND ICD-10-CM F34.1 Dysthymic disorder JENNIFER PALUMBO IHE Encounter Template Text not used by [place] Assessments - Encounter Diagnoses This section includes the primary and secondary diagnoses documented for the Encounter. Date/Time Primary/Secondary Diagnosis Diagnosis Name Provider Source Apr 16, 2024 11:15 AM PRIMARY Dysthymic disorder JENNIFER PALUMBO Plan of Treatment: Future Appointments (+ 6 months) and Future Tests (+/- 45 days) The Plan of Treatment section includes future care activities for the patient from all [place] treatmentfa[facility] health ch[facility]ities. This section includes future appointments and future orders which are active, pending or scheduled. Future Appointments This section includes appointments that were scheduled to occur 6 months from the date of the Encounter, up to a maximum of 20 appointments. The data comes from all [place] treatment facilities. Appointment Date/Time Appointment Type Appointme nt Facility Name May 06, 2024 01:00 PM AMBULATORY [facility] MEDICINE [facility] [place] [facility] May 14, 2024 11:00 AM AMBULATORY - PSYCHIATRY [facility] [place] [facility] May 14, 2024 01:00 PM AMBULATORY - PSYCHIATRY [facility] [place] [facility] May 28, 2024 01:00 PM AMBULATORY - PSYCHIATRY [facility] [place] [facility] Jun 11, 2024 01:30 PM AMBULATORY - PSYCHIATRY [facility] [place] [facility] Jun 11, 2024 02:00 PM AMBULATORY - PSYCHIATRY [facility] [place] [facility] Jun 15, 2024 10:45 AM AMBULATORY - MEDICINE [facility] [place] [facility] Jun 18, 2024 01:00 PM AMBULATORY - PSYCHIATRY [facility] [place] [facility] Jun 25, 2024 01:00 PM AMBULATORY - PSYCHIATRY [facility] [place] [facility] Jul 02, 2024 01:00 PM AMBULATORY - PSYCHIATRY [facility] [place] [facility] Jul 09, 2024 01:00 PM AMBULATORY - PSYCHIATRY [facility] [place] [facility] Jul 16, 2024 01:00 PM AMBULATORY - PSYCHIATRY [facility] [place] [facility] Jul 19, 2024 10:00 AM AMBULATORY - PSYCHIATRY [facility] [place] [facility] Jul 23, 2024 01:00 PM AMBULATORY - PSYCHIATRY [facility] [place] [facility] Aug 19, 2024 02:00 PM AMBULATORY - MEDICINE [facility] [place] Active, Pending, and Scheduled Orders This section includes a listing of several types of active, pending, and scheduled orders, including clinic medications orders, diagnostic test orders, procedure orders and consult orders; where the start date of the order is 45 days before the date of the Encounter or 45 days after the date of theEncounter. The data comes from all [place] treatment facilities. Test Date/Time Test Type Test Details Facility Name May 10, 2024 03:43 PM Consult Order COMMUNITY CARE-UROLOGY Cons Prepress Stripper[employer] Choice [facility] Lab Results: +/- 30 days of the encounter This section includes the Chemistry and Hematology Lab Results on record with [place] for the patient. Radiology Reports and Pathology Reports are provided separately, in subsequent sections. Lab Results This section contains the Chemistry/Hematology Results that were resulted 30 days before or 30 daysafter the date of the Encounter. Date/Time Source Result Type Result - Unit Interpretation Reference Range Comment May 10, 2024 08:51 AM [facility] HLA-B27 (QU) Specimen Type: BLOOD Comment: normalcy status - Abnormal Test [facility] by [facility], [address] [place] [address] Rodger Bender M.D., Ph.D., Director of Laboratories , [place] [id number] TEST PERFORMED AT: , Ordering Provider: LEANDRA BAEZ V Report Released Date/Time: May 06, 2024 01:47 PM Reporting Lab: [facility] [address] [address] Performing Lab: [facility] [address] [address] HLA-B27 Positive Negative May 10, 2024 08:51 AM [facility] T-SPOT TB PANEL Specimen Type: BLOOD Comment: [...] For additional information, please refer to http://education .[employer]/faq/ICM873 (This link is being provided for informational/ educational purposes only.) Test Performed by [employer] [place], [facility], [address] [place] [address] Rodger Bender M.D., Ph.D., Director of Laboratories , [facility] [id number] TEST PERFORMED AT: , Ordering Provider: LEANDRA BAEZ V Report Released Date/Time: May 06, 2024 01:47 PM Reporting Lab: [facility] [employer] [facility] [employer] [address] Performing Lab: [facility] [employer] [facility] [address] [address] C-GAOQ-VSXUJ T (o) Negative Negative T-SPOT-PNLA 0 T-SPOT-PNLB 2 M-FZRZ-RLGBC RL Passed R-DPEX-HLVCJ RL Passed May 10, 2024 08:51 AM [facility] [employer] [facility] JOSEPH SCREEN/TITER Specimen Type: SERUM No comment entered. Ordering Provider: LEANDRA BAEZ V Report Released Date/Time: May 06, 2024 01:47 PM Reporting Lab: [facility] [employer] [facility] [address] [address] Performing Lab: [facility] [employer] [employer] [facility] [address] [facility] [address] JOSEPH SCREEN NEG NEG <1:40 May 10, 2024 08:51 AM [facility] HEPATITIS B CORE (Total) Ab Specimen Type: [...] May 06, 2024 01:47 PM Reporting Lab: [address] [address] Performing Lab: [address] [address] HEPATITIS B CORE (Total) Ab Non Reactive Non Reactive May 10, 2024 08:51 AM [facility] HEPATITIS B SURFACE ANTIBODY (HBsAb)-WH Specimen Type [...] May 06, 2024 01:47 PM Reporting Lab: [address] [address] Performing Lab: [address] [address] HBsAb REACTIVE Non Reactive May 10, 2024 08:51 AM [facility] CBC Specimen Type: BLOOD No comment entered. Ordering Provider: LEANDRA BAEZ V Report Released Date/Time: May 06, 2024 01:47 PM Reporting Lab: [facility] [address] [address] Performing Lab: [address] [address] WBC 5.62 10*3/uL 4.50-11.00 RBC 3.76 10*6/uL L 3.93-5.16 HGB 12.3 g/dL 12-15.2 HCT 35.8 L 36.6-45.6 MCV 95.2 fL 82-99 MCHC 34.4 g/dL 30.8-35.1 PLT 322 10*3/uL 140-360 RDW-CV 11.8 L 12.0-16.0 MCH 32.7 pg H 26.2-32.6 May 10, 2024 08:51 AM [facility] HEPATITIS C ANTIBODY (HCV)-ARC Specimen Type: SERUM Comment: Hep C Ab: No HCV antibody detected. If recent infection is suspected or other evidence suggests HCV infection, consider HCV nucleic acid testing Ordering Provider: LEANDRA BAEZ V Report Released Date/Time: May 06, 2024 01:47 PM Reporting Lab: [address] [address] Performing Lab: [address] [address] HEPATITIS C ANTIBODY NON-REACTIVE NON-REACTI VE May 10, 2024 08:51 AM [facility] LIVER FUNCTION Specimen Type: SERUM No comment entered. Ordering Provider: LEANDRA BAEZ V Report Released Date/Time: May 06, 2024 01:47 PM Reporting Lab: [address] [address] Performing Lab: [address] [address] PROTEIN,TOTA L 6.3 g/dL 6.0-8.3 ALBUMIN 3.5 g/dL 3.5-5.0 ALKALINE PHOSPHATASE 46 U/L 40-150 AST 14 U/L 5-34 ALT 11 U/L BILIRUBIN, TOTAL 0.4 mg/dL 0.2-1.2 May 10, 2024 08:51 AM [facility] URIC ACID Specimen Type: SERUM No comment entered. Ordering Provider: LEANDRA BAEZ V Report Released Date/Time: May 06, 2024 01:47 PM Reporting Lab: [facility] [place] [address] [address] Performing Lab: [address] [address] URIC ACID 4.4 mg/dL 2.6-6 May 10, 2024 08:51 AM [facility] PO4 Specimen Type: SERUM No comment entered. Ordering Provider: LEANDRA BAEZ V Report Released Date/Time: May 06, 2024 01:47 PM Reporting Lab: [address] [address] Performing Lab: [address] [address] PO4 4.0 mg/dL 2.5-5.0 May 10, 2024 08:51 AM [facility] TSH Specimen Type: SERUM No comment entered. Ordering Provider: LEANDRA BAEZ V Report Released Date/Time: May 06, 2024 01:47 PM Reporting Lab: [address] [address] Performing Lab: [facility] [address] TSH 1.38 u[IU]/mL 0.35-5.00 May 10, 2024 08:51 AM [facility] BASIC METABOLIC PANEL (non-fasting) Specimen Type: SERUM No comment entered. Ordering Provider: LEANDRA BAEZ V Report Released Date/Time: May 06, 2024 01:47 PM Reporting Lab: [address] [place] [address] Performing Lab: [place] [facility] [address] [address] UREA NITROGEN 20 mg/dL 7-25 GLUCOSE 83 [...] and tobacco- related health factors from the [place] facility where the Encounter took place. Current Smoking Status This section includes the most current smoking, or tobacco-related health factor, from the [place] facility where the Encounter took place. Date/Time Current Smoking Status Comment Facil ity Mar 18, 2023 09:00 AM VA-TO[facility]ACCO NEVER USED [place] Advance Directives: All historical and current Section Date Range: From patient's date of to the date document was created. This section includes ALL of a patient's completed or amended [place] Advance and Rescinded Directives. The entries below indicate that a directive exists for the patient, but an actual copy is not included with this document. The data comes from all [place] facilities. Date Advance Directives Provider Source Mar 25, 2023 ADVANCE DIRECTIVE [facility] Radiology Reports: +/- 30 [...] the Encounter. The data comes from all [place] treatment facilities. Date/Time Radiology Report Provider Source May 10, 2024 10:36 AM HAND 3 OR MORE VIEWS: JAYLAN ALVAREZ [id number] -1980 F Exm Date: MAY 10, 2024@10:36 Req Phys: LEANDRA BAEZ V Pat Loc: CWM/NO/RHEUMATOLOGY B (Req'g L Img Loc: [facility] Service: Unknown Screen: Patient answered no [facility] [place] [place] (Case 27 COMPLETE) FOOT 3 OR MORE VIEWS (RIGHT) (RAD Detailed) CPT:85009 Proc Modifiers : RIGHT CPT Modifiers : RT RIGHT SIDE Reason for Study: Evaluate for evid of spondyloarthropathy/erosion (Case 28 COMPLETE) FOOT 3 OR MORE VIEWS(LEFT) (RAD Detailed) CPT:83950 Proc Modifiers : LEFT CPT Modifiers : LT LEFT SIDE Clinical History: Pt with hx of on etanercept. Reports hand swelling Report Status: Verified Date Reported: MAY 10, 2024 Date Verified: MAY 10, 2024 Complaint Specialist E-Sig:/ES/ANTONELLA BEARD JR Report: Study: Weight-bearing AP, [...] Primary Interpreting Staff: ANTONELLA BEARD JR, Radiologist (Complaint Specialist) /EAD ANTONELLA BEARD JR [facility] May 10, 2024 10:35 AM SPINE LUMBOSACRAL MIN 4 VIEWS: JAYLAN ALVAREZ [id number] -1980 F Exm Date: MAY 10, 2024@10:35 Req Phys: LEANDRA BAEZ Loc: [facility]/NO/RHEUMATOLOGY B (Req'g L Img Loc: [facility] 1 Service: Unknown Screen: Patient answered no [facility] [place] [place] [address] (Case 25 COMPLETE) SPINE LUMBOSACRAL MIN 4 VIEWS (RAD Detailed) CPT:71099 Reason for Study: Evaluate for evid of spondyloarthropathy Clinical History: Pt with hx of on etanercept Report Status: Verified Date Reported: MAY 10, 2024 Date Verified: MAY 10, 2024 Complaint Specialist E-Sig:/ES/ANTONELLA BEARD JR Report: Study: AP, left [...] Primary Interpreting Staff: ANTONELLA BEARD JR, Radiologist (Complaint Specialist) /EAANTONELLA ODEN JR [facility] May 10, 2024 10:35 AM SPINE CERVICAL, 4 OR 5 VIEWS: JAYLAN ALVAREZ [id number] -1980 F Exm Date: MAY 10, 2024@10:35 Req Phys: LEANDRA BAEZ V Pat Loc: CWM/NO/RHEUMATOLOGY B (Req'g L Img Loc: [facility] 1 Service: Unknown Screen: Patient answered no [facility] [place] [place] [address] (Case 26 COMPLETE) SPINE CERVICAL, 4 OR 5 VIEWS (RAD Detailed) CPT:26380 Reason for Study: Evaluate for evid of spondyloarthropathy Clinical History: Pt with hx of on etanercept Report Status: Verified Date Reported: MAY 10, 2024 Date Verified: MAY 10, 2024 Complaint Specialist E-Sig:/ES/ANTONELLA BEARD JR Report: Study: AP, lateral [...] Primary Interpreting Staff: ANTONELLA BEARD JR, Radiologist (Complaint Specialist) /ANTONELLA CANO JR [facility] May 10, 2024 10:34 AM FOOT 3 OR MORE VIEWS (RIGHT): JAYLAN ALVAREZ [id number] -1980 F Exm Date: MAY 10, 2024@10:34 Req Phys: LEANDRA BAEZ V Pat Loc: CWM/NO/RHEUMATOLOGY B (Req'g L Img Loc: [facility] 1 Service: Unknown Screen: Patient answered no [facility] [place] [address] (Case 23 COMPLETE) HAND 3 OR MORE VIEWS(LEFT) (RAD Detailed) CPT:88947 Reason for Study: Evaluate for evid of erosion - bilateral exam (Case 24 COMPLETE) HAND3 OR MORE VIEWS(RIGHT) (RAD Detailed) CPT:35448 Clinical History: Pt with hx of on etanercept. Reports foot swelling also hx of kidney stones Report Status: Verified Date Reported: MAY 10, 2024 Date Verified: MAY 10, 2024 Complaint Specialist E-Sig:/ES/ANTONELLA BEARD JR Report: Study: AP, [place], [...] Primary Interpreting Staff: ANTONELLA BEARD JR, Radiologist (Complaint Specialist) /ANTONELLA CANO JR [facility] Encounter Notes: All associated encounter notes This section contains the clinical notes associated to the Encounter. Date/Time Encounter Note(s) Provider Source Apr 16, 2024 11:01 AM TELEHEALTH NOTE: LOCAL TITLE: [place] VIDEO CONNECT PSYCHIATRIST NOTE STANDARD TITLE: TELEHEALTH NOTE DATE OF NOTE: APR 16, 2024@11:01 ENTRY DATE: APR 16, 2024@11:02:17 AUTHOR: PALUMBO,JENNIFER G EXP COSIGNER: URGENCY: STATUS: COMPLETED [facility] ([facility]VC) Standard Documentation VVC Clinician Resources Only: E911 (Emergency Call Relay Center): [phone] National Veterans Crisis Line - 988 then press #1. DAVID Suicide Coordinator [phone], Ext. [phone]; Back-up Ext. [phone] [place] Police, Yuval HERNANDEZ [phone] Introduction: Visit is being conducted by [place] [facility] Connect. identified with 2 identifiers: [X] Full Name [X] Date of [ ] VA ID Card Emergency Plan: confirmed and/or provided the following information in case of emergency or technology failure. PATIENT PHONE - PHONE NUMBER [CELLULAR] - Is patient phone number correct, if not, enter below: 's phone number: JAYLAN ALVAREZ [address], [place], [address] [place]'s present location and address for appointment: same as above [place]'s emergency contact name and phone number: unchanged [place] reported that location is private and safe: Yes Informed Consent: [place] informed of the risks and benefits of Telehealth video care. [place] has the right to refuse video services. If refuses video visit, a [id number] visit will be scheduled. verbalized consent for this video visit: Yes provided consent for any other persons present for visit: N/A If yes, who and relationship to patient: Secure visit: Visit was locked for security and privacy:Yes CHART REVIEW: seen for initial MH Consult 03/18/23 noting: [place] is a 42 year old [employer] [facility] , [facility] and presenting for mental health due to frequent tearfulness. 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 [employer] [employer] [facility]. She built a good group of friends who she stayed in touch with for a long time. 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 Is planning to pursue a claim about possible link between her RA and the anthrax vaccine. 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 Works 65 hours/ week INITIAL ASSESSMENT/ DIAGNOSIS AND RECOMMENDATIONS: [place] presents with dysthymic disorder, possible PTSD. She [...] I recently traveled with my kids to [facility]. It was good. REVIEW OF SYSTEMS MENTAL [...] Reinforced: If urgent treatment is needed, call [phone] or go to the nearest Emergency Room 2. To schedule or change an appointment, inquire about medication refills, etc: call office number during normal office hours Diagnoses: History of dysthymia ([facility] [id number]) - Dysthymic disorder (ICD-10-CM F34.1) (Primary) /mat/ JENNIFER PALUMBO M.D. Signed: 04/16/2024 11:16 JENNIFER PALUMBOFIELD
--- OUTSIDE RECORDS SUMMARY | 2024-06-15 10:50 | XMS_ITS | Encounter Summary ---
Author Name [facility] [place] [facility] [place] Address [address] [place] [address] Care Team Providers Care [employer] Name Role Phone TRINH FRANCO Primary Care [...] to Policy Gibson CAREMARK PRESCRIPT ION [facility] Dec 21, 2022 [id number] Jelani ALVAREZ PATIENT [employer] ([id number]) PRESCRIPT ION GIC Jun 07, 2022 [id number] Jelani ALVAREZ PATIENT [facility] CE ORGANIZAT ION [facility] STATE [facility] Y Jun 07, 2022 [id number] [phone] Jelani ALVAREZ PATIENT Selected Encounter This section includes the information on record at [place] for the Encounter. Date/Time Encounter Type Encounter Description Reason Provider Source May 14, 2024 01:00 PM PSYTX W PT 45 MINUTES [facility] - IND ICD-10-CM F43.12 Post-traumatic stress disorder, chronic CAMPONOGARA,SA LIYAH IHE Encounter Template Text not used by [place] Assessments - Encounter Diagnoses This section includes the primary and secondary diagnoses documented for the Encounter. Date/Time Primary/Secondary Diagnosis Diagnosis Name Provider Source May 14, 2024 03:38 PM PRIMARY Post-traumatic stress disorder, chronic CAMPONOGARA,SA LIYAH [facility] [place] [facility] May 14, 2024 03:38 PM SECONDARY Major depressive disorder, recurrent, moderate CAMPONOGARA,SA LIYAH [place] [facility] [place] [facility] Plan of Treatment: Future Appointments (+ 6 months) and Future Tests (+/- 45 days) The Plan of Treatment section includes future care activities for the patient [facility] [place] [facility] This section includes future appointments [...] AMBULATORY - PSYCHIATRY [facility] [place] [facility] Jun 11, 2024 01:30 PM AMBULATORY - PSYCHIATRY [facility] [place] [facility] Jun 11, 2024 02:00 PM AMBULATORY - PSYCHIATRY [facility] [place] [facility] Jun 15, 2024 10:45 AM AMBULATORY - MEDICINE [place] [facility] [place] [facility] Jun 18, 2024 01:00 PM AMBULATORY - PSYCHIATRY [facility] [place] [facility] Jun 25, 2024 01:00 PM AMBULATORY - PSYCHIATRY [facility] [place] [facility] Jul 02, 2024 01:00 PM AMBULATORY - PSYCHIATRY [facility] [place] [facility] Jul 09, 2024 01:00 PM AMBULATORY - PSYCHIATRY [facility] [place] [facility] Jul 16, 2024 01:00 PM AMBULATORY - PSYCHIATRY [facility] [place] [facility] Jul 19, 2024 10:00 AM AMBULATORY - PSYCHIATRY [facility] [place] [facility] Jul 23, 2024 01:00 PM AMBULATORY - PSYCHIATRY [facility] [place] [facility] Aug 19, 2024 02:00 PM AMBULATORY - MEDICINE [facility] Active, Pending, and Scheduled Orders This section includes a listing of several types of active, pending, and scheduled orders, including clinic medications orders, diagnostic test orders, procedure orders and consult orders; where the start date of the order is 45 days before the date of the Encounter or 45 days after the date of theEncounter. The data comes from all [place] treatment facilities. Test Date/Time Test Type Test Details Facility Name May 10, 2024 03:43 PM Consult Order COMMUNITY CARE-UROLOGY Cons Heel Molder's Choice [facility] Lab Results: +/- 30 days of the encounter This section includes the Chemistry and Hematology Lab Results on record with [place] for the patient. Radiology Reports and Pathology Reports are provided separately, in subsequent sections. Lab Results This section contains the Chemistry/Hematology Results that were resulted 30 days before or 30 daysafter the date of the Encounter. Date/Time Source Result Type Result - Unit Interpretation Reference Range Comment May 10, 2024 08:51 AM [facility] HLA-B27 (QU) Specimen Type: BLOOD Comment: normalcy status - Abnormal Test Performed by [facility] [place], [facility], [address] [place] [address] Rodger Bender M.D., Ph.D., Director of Laboratories , [facility] [id number] TEST PERFORMED AT: , Ordering Provider: LEANDRA BAEZ V Report Released Date/Time: May 06, 2024 01:47 PM Reporting Lab: [facility] [address] [facility] [facility] [address] Performing Lab: [facility] [address] [address] HLA-B27 Positive Negative May 10, 2024 08:51 AM [facility] T-SPOT TB PANEL Specimen Type: BLOOD Comment: [...] For additional information, please refer to [email or web address] (This link is being provided for informational/ educational purposes only.) Test Performed by uMentionedGaetano, Opez [facility], [address] [place] [address] Rodger Bender M.D., Ph.D., Director of Laboratories , [facility] [id number] TEST PERFORMED AT: , Ordering Provider: LEANDRA BAEZ V Report Released Date/Time: May 06, 2024 01:47 PM Reporting Lab: [facility] [address] Performing Lab: [facility] [address] [address] G-VDYW-[id number] T (o) Negative Negative T-SPOT-PNLA 0 T-SPOT-PNLB 2 N-UTGV-KBSED RL Passed V-LQQB-PBTCQ RL Passed May 10, 2024 08:51 AM [facility] JOSEPH SCREEN/TITER Specimen Type: SERUM No comment entered. Ordering Provider: LEANDRA BAEZ V Report Released Date/Time: May 06, 2024 01:47 PM Reporting Lab: [facility] [address] [facility] [address] Performing Lab: [facility]24[employer] [facility] [address] [facility] [address] JOSEPH SCREEN NEG NEG <1:40 May 10, 2024 08:51 AM [facility] HEPATITIS B CORE (Total) Ab Specimen [...] May 06, 2024 01:47 PM Reporting Lab: [address] [address] Performing Lab: [address] [address] HEPATITIS B CORE (Total) Ab Non Reactive Non Reactive May 10, 2024 08:51 AM [facility] HEPATITIS B SURFACE ANTIBODY (HBsAb)-WH Specimen Type [...] May 06, 2024 01:47 PM Reporting Lab: [address] [address] Performing Lab: [address] [address] HBsAb REACTIVE Non Reactive May 10, 2024 08:51 AM [facility] CBC Specimen Type: BLOOD No comment entered. Ordering Provider: LEANDRA BAEZ V Report Released Date/Time: May 06, 2024 01:47 PM Reporting Lab: [facility] [address] [facility] [facility] [address] Performing Lab: [address] [address] WBC 5.62 10*3/uL 4.50-11.00 RBC 3.76 10*6/uL L 3.93-5.16 HGB 12.3 g/dL 12-15.2 HCT 35.8 L 36.6-45.6 MCV 95.2 fL 82-99 MCHC 34.4 g/dL 30.8-35.1 PLT 322 10*3/uL 140-360 RDW-CV 11.8 L 12.0-16.0 MCH 32.7 pg H 26.2-32.6 May 10, 2024 08:51 AM [facility] HEPATITIS C ANTIBODY (HCV)-ARC Specimen Type: SERUM Comment: Hep C Ab: No HCV antibody detected. If recent infection is suspected or other evidence suggests HCV infection, consider HCV nucleic acid testing Ordering Provider: LEANDRA BAEZ V Report Released Date/Time: May 06, 2024 01:47 PM Reporting Lab: [address] [address] Performing Lab: [address] [address] HEPATITIS C ANTIBODY NON-REACTIVE NON-REACTI VE May 10, 2024 08:51 AM [facility] LIVER FUNCTION Specimen Type: SERUM No comment entered. Ordering Provider: LEANDRA BAEZ V Report Released Date/Time: May 06, 2024 01:47 PM Reporting Lab: [address] [address] Performing Lab: [address] [address] PROTEIN,TOTA L 6.3 g/dL 6.0-8.3 ALBUMIN 3.5 g/dL 3.5-5.0 ALKALINE PHOSPHATASE 46 U/L 40-150 AST 14 U/L 5-34 ALT 11 U/L BILIRUBIN, TOTAL 0.4 mg/dL 0.2-1.2 May 10, 2024 08:51 AM [facility] URIC ACID Specimen Type: SERUM No comment entered. Ordering Provider: LEANDRA BAEZ V Report Released Date/Time: May 06, 2024 01:47 PM Reporting Lab: [facility] [address] [facility] [facility] [address] Performing Lab: [facility] [address] [facility] [address] URIC ACID 4.4 mg/dL 2.6-6 May 10, 2024 08:51 AM [facility] PO4 Specimen Type: SERUM No comment entered. Ordering Provider: LEANDRA BAEZ V Report Released Date/Time: May 06, 2024 01:47 PM Reporting Lab: [facility] [address] [facility] [facility] [address] Performing Lab: [facility] [address] [address] PO4 4.0 mg/dL 2.5-5.0 May 10, 2024 08:51 AM [facility] TSH Specimen Type: SERUM No comment entered. Ordering Provider: LEANDRA BAEZ V Report Released Date/Time: May 06, 2024 01:47 PM Reporting Lab: [facility] [address] [facility] [facility] [address] Performing Lab: [facility] [address] [address] TSH 1.38 u[IU]/mL 0.35-5.00 May 10, 2024 08:51 AM [facility] BASIC METABOLIC PANEL (non-fasting) Specimen Type: SERUM No comment entered. Ordering Provider: LEANDRA BAEZ V Report Released Date/Time: May 06, 2024 01:47 PM Reporting Lab: [facility] [address] [address] Performing Lab: [facility] [address] [facility] [facility] [address] UREA NITROGEN 20 mg/dL 7-25 GLUCOSE 83 [...] Facil ity May 14, 2024 01:00 PM [place]-TOBACCO NEVER U SED CIGARETTES [facility] Tobacco Use History This section includes a history of the smoking, or tobacco-related health factors, that were collected on or before the date of the Encounter. The data comes from the [place] facility where the Encounter took place. Date/Time Smoking Status/Tobacco Use Comment F acility May 14, 2024 01:00 PM [place]-TOBACCO NEVER U SED OTHER TYPE [facility] Advance Directives: All historical and current Section Date Range: From patient's date of to the date document was created. This section includes ALL of a patient's completed or amended [place] Advance and Rescinded Directives. The entries below indicate that a directive exists for the patient, but an actual copy is not included with this document. The data comes from all [place] facilities. Date Advance Directives Provider Source Mar 25, 2023 ADVANCE DIRECTIVE PETROS MOTLEY [facility] Radiology Reports: +/- 30 days of [...] HAND 3 OR MORE VIEWS: JAYLAN ALVAREZ [id number] -1980 F Exm Date: MAY 10, 2024@10:36 Req Phys: LEANDRA BAEZ V Pat Loc: CWM/NO/RHEUMATOLOGY B (Req'g L Img Loc: [facility]/BUILDING 1 Service: Unknown Screen: Patient answered no [facility] [place] [address] (Case 27 COMPLETE) FOOT 3 OR MORE VIEWS (RIGHT) (RAD Detailed) CPT:90066 Proc Modifiers : RIGHT CPT Modifiers : RT RIGHT SIDE Reason for Study: Evaluate for evid of spondyloarthropathy/erosion (Case 28 COMPLETE) FOOT 3 OR MORE VIEWS(LEFT) (RAD Detailed) CPT:97510 Proc Modifiers : LEFT CPT Modifiers : LT LEFT SIDE Clinical History: Pt with hx of on etanercept. Reports hand swelling Report Status: Verified Date Reported: MAY 10, 2024 Date Verified: MAY 10, 2024 Care Director Rn E-Sig:/ES/ANTONELLA BEARD JR Report: Study: Weight-bearing AP, [...] Primary Interpreting Staff: ANTONELLA BEARD JR, Radiologist (Care Director Rn) /ANTONELLA CANO JR [facility] May 10, 2024 10:35 AM SPINE LUMBOSACRAL MIN 4 VIEWS: JAYLAN ALVAREZ [id number] -1980 F Exm Date: MAY 10, 2024@10:35 Req Phys: LEANDRA BAEZ V Pat Loc: CWM/NO/RHEUMATOLOGY B (Req'g L Img Loc: [facility] 1 Service: Unknown Screen: Patient answered no [facility] [place] [address] (Case 25 COMPLETE) SPINE LUMBOSACRAL MIN 4 VIEWS (RAD Detailed) CPT:78235 Reason for Study: Evaluate for evid of spondyloarthropathy Clinical History: Pt with hx of on etanercept Report Status: Verified Date Reported: MAY 10, 2024 Date Verified: MAY 10, 2024 Care Director Rn E-Sig:/ES/ANTONELLA BEARD JR Report: Study: AP, left [...] Primary Interpreting Staff: ANTONELLA BEARD JR, Radiologist (Care Director Rn) /EAD ANTONELLA BEARD JR [facility] May 10, 2024 10:35 AM SPINE CERVICAL, 4 OR 5 VIEWS: JAYLAN ALVAREZ [id number] -1980 F Exm Date: MAY 10, 2024@10:35 Req Phys: LEANDRA BAEZ V Pat Loc: CWM/NO/RHEUMATOLOGY B (Req'g L Img Loc: [facility] 1 Service: Unknown Screen: Patient answered no [facility] [place] [address] (Case 26 COMPLETE) SPINE CERVICAL, 4 OR 5 VIEWS (RAD Detailed) CPT:10237 Reason for Study: Evaluate for evid of spondyloarthropathy Clinical History: Pt with hx of on etanercept Report Status: Verified Date Reported: MAY 10, 2024 Date Verified: MAY 10, 2024 Care Director Rn E-Sig:/ES/ANTONELLA BEARD JR Report: Study: AP, lateral [...] Primary Interpreting Staff: ANTONELLA BEARD JR, Radiologist (Care Director Rn) /ANTONELLA CANO JR [facility] May 10, 2024 10:34 AM FOOT 3 OR MORE VIEWS (RIGHT): JAYLAN ALVAREZ [id number] -1980 F Exm Date: MAY 10, 2024@10:34 Req Phys: LEANDRA BAEZ V Pat Loc: CWM/NO/RHEUMATOLOGY B (Req'g L Img Loc: [facility] 1 Service: Unknown Screen: [place] [address] (Case 23 COMPLETE) HAND 3 OR MORE VIEWS(LEFT) (RAD Detailed) CPT:80892 Reason for Study: Evaluate for evid of erosion - bilateral exam (Case 24 COMPLETE) HAND3 OR MORE VIEWS(RIGHT) (RAD Detailed) CPT:56372 Clinical History: Pt with hx of on etanercept. Reports foot swelling also hx of kidney stones Report Status: Verified Date Reported: MAY 10, 2024 Date Verified: MAY 10, 2024 Care Director Rn E-Sig:/ES/ANTONELLA BEARD JR Report: Study: AP, [place], [...] Primary Interpreting Staff: ANTONELLA BEARD JR, Radiologist (Care Director Rn) /ANTONELLA CANO JR [facility] Encounter Notes: All associated encounter notes This section contains the clinical notes associated to the Encounter. Date/Time Encounter Note(s) Provider Source May 14, 2024 02:56 PM TELEHEALTH CONSULT: LOCAL TITLE: CONSULT REPORT/[facility] [facility] VIDEO CONNECT PSYCHOLOGY NOTE STANDARD TITLE: TELEHEALTH CONSULT DATE OF NOTE: MAY 14, 2024@14:56 ENTRY DATE: MAY 14, 2024@14:56:34 AUTHOR: AZALEA RODRIGUEZ EXP COSIGNER: URGENCY: STATUS: COMPLETED [place] Video Connect (VVC) Standard Documentation VVC Clinician Resources Only: E911 (Emergency Call Relay Center): [phone] National RRsat Crisis Line - 988 then press #1. [facility] Suicide Coordinator [phone], Ext. [phone]; Back-up Ext. [phone] [place] Police, Kassandra HERNANDEZ [phone] Introduction: Visit is being conducted by [employer]. identified with 2 identifiers: [X] Full Name [X] Date of [ ] [place] ID Card Emergency Plan: confirmed and/or provided the following information in case of emergency or technology failure. PATIENT PHONE - PHONE NUMBER [CELLULAR] - Is patient phone number correct, if not, enter below: [place]'s phone number: JAYLAN ALVAREZ [address], [place], [address] [place]'s present location and address for appointment: see chart [place]'s emergency contact name and phone number: see chart [place] reported that location is private and safe: Yes Informed Consent: informed of the risks and benefits of Telehealth video care. has the right to refuse video services. If refuses video visit, a avib-ug-htyd visit will be scheduled. 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 She typically works 2nd shift. Her hobbies [...] the next session. HISTORY: Nash joined the [employer] in 1998 and served for 8 years. Nash worked in [employer] affairs in [facility] and was deployed twice. She reported seeing many bodies and that she lost friends in that deployment. See more below. 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 She stated that this was her first [...] intent and behavior (attempts and preparatory behavior). [place] is aware of actions to take if he/she feels unsafe including the use of the VCL ([phone]), 911, walk in services, and urgent care/emergency room. The is aware of how to contact the clinic should he/she require additional services prior to the next appointment. Please see CSSR below. MENTAL STATUS AND BEHAVIORAL OBSERVATIONS: Nash arrived to the appointment on time and was dressed appropriate to context. [place] was oriented x4, and her thought process was linear, logical, and coherent. There was no evidence of a thought disorder. She described her mood as depressed and her affect was expressive, stable, and consistent with stated mood. She was tearful at times. Speech and motor activity fell within normal limits. [place] was polite, cooperative, and engaged. DSM5 DIAGNOSES: Major Depressive Disorder, Moderate, Recurrent; R/O PTSD NEXT STEPS: Our next session is scheduled for 05/28 at 1pm [facility]. The plan is to continue diagnostic assessment, focused on PTSD, in the next session. Suicide Screen: C-SSRS Screening Mchenry-Suicide Severity Rating Scale (C-SSRS Screener) 1. Over [...] sexual orientation as: Straight or Heterosexual /mat/ Azalea Rodriguez Psy.D. SEXUAL TRAUMA/WOMEN'S PSYCHOLOGIST Signed: 05/14/2024 15:39 AZALEA RODRIGUEZ [facility]
--- OUTSIDE RECORDS SUMMARY | 2024-06-15 10:50 | XMS_ITS | Encounter Summary ---
Author Name Department of Vetera Affairs ([place]) Organization [facility] ([place]) Address [address] [place] [address] Care Team Providers Care Bisque Kiln Placer Name Role Phone TRINH FRANCO Primary Care [...] Relationship to Policy Gibson CAREMARK PRESCRIPT ION [facility] Dec 21, 2022 [id number] Jelani ALVAREZ PATIENT [employer] [facility] ([id number]) PRESCRIPT ION [facility] Jun 07, 2022 [id number] Jelani ALVAREZ PATIENT [facility] CE ORGANIZAT ION [facility] Jun 07, 2022 [id number] Jelani ALVAREZ PATIENT Selected Encounter This section includes the information on record at MD for the Encounter. Date/Time Encounter Type Encounter Description Reason Pro vider Source Mar 12, 2024 12:00 AM Outpatient Encounter EVENT (HISTORICAL) IHE Encounter Template Text not used by VA Plan of Treatment: Future Appointments (+ 6 months) and Future Tests (+/- 45 days) The Plan of Treatment section includes future care activities for the patient from all [facility]. This section includes future appointments and future orders which are active, pending or scheduled. Future Appointments This section includes appointments that were scheduled to occur 6 months from the date of the Encounter, up to a maximum of 20 appointments. The data comes from all MD treatment facilities. Appointment Date/Time Appointment Type Appointme nt Facility Name Apr 16, 2024 11:00 AM AMBULATORY [facility]AT[facility] [place] [facility] May 06, 2024 01:00 PM AMBULATORY [facility] MEDICINE [facility] [place] [facility] May 14, 2024 11:00 AM AMBULATORY - PS[facility]IATRY [facility] [place] [facility] May 14, 2024 01:00 PM AMBULATORY - PS[facility]CHIATRY [facility] [place] [facility] May 28, 2024 01:00 PM AMBULATORY [facility]RY [facility] [place] [facility] Jun 11, 2024 01:30 PM AMBULATORY - PS[facility]IATRY [facility] [place] [facility] Jun 11, 2024 02:00 PM AMBULATORY - PS[facility]IATRY [facility] [place] [facility] Jun 15, 2024 10:45 AM AMBULATORY - MEDICINE [facility] [place] [facility] Jun 18, 2024 01:00 PM AMBULATORY - PS[facility]CHIATRY [facility] [place] [facility] Jun 25, 2024 01:00 PM AMBULATORY - PS[facility]CHIATRY [facility] [place] [facility] Jul 02, 2024 01:00 PM AMBULATORY - PS[facility]CHIATRY [facility] [place] [facility] Jul 09, 2024 01:00 PM AMBULATORY - PSYCHIATRY [facility] [place] [facility] Jul 16, 2024 01:00 PM AMBULATORY - PS[facility]CHIATRY [facility] [place] [facility] Jul 19, 2024 10:00 AM AMBULATORY - PS[facility]CHIATRY [facility] [place] [facility] Jul 23, 2024 01:00 PM AMBULATORY - PS[facility]CHIATRY [facility] [place] [facility] Aug 19, 2024 02:00 PM AMBULATORY - MEDICINE [facility] [place] [facility] Advance Directives: All historical and current Section Date Range: From patient's date of to the date document was created. This section includes ALL of a patient's completed or amended VA Advance and Rescinded Directives. The entries below indicate that a directive exists for the patient, but an actual copy is not included with this document. The data comes from all MD facilities. Date Advance Directives Provider Source Mar 25, 2023 ADVANCE DIRECTIVE PETROS MOTLEY [facility] Radiology Reports: +/- 30 days [...] the Encounter. The data comes from all MD treatment facilities. Date/Time Radiology Report Provider Source Mar 09, 2024 08:45 AM OUTSIDE MAMMO/SCRE ENING, INCLUDING CAD, BILAT: JAYLAN ALVAREZ [id number] -1980 F Exm Date: MAR 09, 2024@08:45 Req Phys: TRINH FRANCO Pat Loc: CWM/NO/PACT 5 (Req'g Loc) Img Loc: OUTSIDE GENERAL RADIOLOGY Service: Unknown Screen: Patient is unable to answer or is unsure Screen Comment: cc exam (Case [id number] COMPLETE) OUTSIDE MAMMO/SCREENING, INCLUDIN(RAD Detailed) CPT:40182 Reason for Study: screening Clinical History: Report Status: Electronically Filed Date Reported: MAR 09, 2024 Report: Community care exam; see CPRS/JLV for outside radiology report/results Impression: Community care exam; see CPRS/JLV for outside radiology report/results Primary Diagnostic Code: BI-RADS CATEGORY 2 (Benign) VERIFIED BY: / *ELECTRONICALLY FILED* [facility] [place] [facility] Encounter Notes: All associated encounter notes This section contains the clinical notes associated to the Encounter. Date/Time Encounter Note(s) Provider Source Mar 12, 2024 12:00 AM NONVA DIAGNOSTIC S BRITTDY REPORT: LOCAL TITLE: NON-VA DIAGNOSTICS STANDARD TITLE: NONVA DIAGNOSTIC STUDY REPORT DATE OF NOTE: MAR 12, 2024 ENTRY DATE: JUN 08, 2024@12:12:34 AUTHOR: TONY ZAMORANO EXP COSIGNER: URGENCY: STATUS: COMPLETED VistA Imaging - Scanned Document SCANNED DOCUMENT SIGNATURE NOT REQUIRED Electronically Filed: 06/08/2024 by: KIET ZAMORANO Natural Resource Officer TONY ZAMORANO [facility] Mar 12, 2024 12:00 AM NONVA NOTE: LOCAL TITLE: NON-VA OUTPATIENT NOTES STANDARD TITLE: NONVA NOTE DATE OF NOTE: MAR 12, 2024 ENTRY DATE: JUN 08, 2024@12:14:31 AUTHOR: TONY ZAMORANO EXP COSIGNER: URGENCY: STATUS: COMPLETED VistA Imaging - Scanned Document SCANNED DOCUMENT SIGNATURE NOT REQUIRED Electronically Filed: 06/08/2024 by: KIET ZAMORANO Natural Resource Officer TONY ZAMORANO [facility]
--- OUTSIDE RECORDS SUMMARY | 2024-06-15 10:50 | XMS_ITS | Encounter Summary ---
Author Name Department of Vetera Affairs ([place]) Organization [facility] ([place]) Address [address] [place] [address] Care Team Providers Care Carton Counter Feeder Name Role Phone TRINH FRANCO Primary [...] Gibson CAREMARK PRESCRIPT ION [facility] Dec 21, 2022 [id number] [phone] Jelani ALVAREZ PATIENT [employer] ([id number]) PRESCRIPT ION [facility] Jun 07, 2022 [id number] Jelani ALVAREZ PATIENT [facility] ORGANIZAT ION [facility] Jun 07, 2022 [id number] Jelani ALVAREZ PATIENT Selected Encounter This section includes the information on record at [place] for the Encounter. Date/Time Encounter Type Encounter Description Reason Pro vider Source Mar 24, 2024 08:41 AM Outpatient Encounter PRIMARY CARE/MEDICINE IHE Encounter Template Text not used by VA Plan of Treatment: Future Appointments (+ 6 months) and Future Tests (+/- 45 days) The Plan of Treatment section includes future care activities for the patient from all [place] treatmentfacritical access hospitalities. This section includes future appointments and [...] AMBULATORY - [facility]IAT[facility] [place] [facility] May 06, 2024 01:00 PM AMBULATORY - MEDICINE [facility] [place] [facility] May 14, 2024 11:00 AM AMBULATORY - PSYCHIATRY [facility] [place] [facility] May 14, 2024 01:00 PM AMBULATORY - PS[facility]CHIATRY [facility] [place] [facility] May 28, 2024 01:00 PM AMBULATORY - PSYCHIATRY [facility] [place] [facility] Jun 11, 2024 01:30 PM AMBULATORY - PSYCHIATRY [facility] [place] [facility] Jun 11, 2024 02:00 PM AMBULATORY - PSYCHIATRY [facility] [place] [facility] Jun 15, 2024 10:45 AM AMBULATORY - MEDICINE [facility] [place] [facility] Jun 18, 2024 01:00 PM AMBULATORY - PSYCHIATRY [facility] [place] [facility] Jun 25, 2024 01:00 PM AMBULATORY - PSYCHIATRY [facility] [place] [facility] Jul 02, 2024 01:00 PM AMBULATORY - PSYCHIATRY [facility] [place] [facility] Jul 09, 2024 01:00 PM AMBULATORY - PSYCHIATRY [facility] [place] [facility] Jul 16, 2024 01:00 PM AMBULATORY - PSYCHIATRY [facility] [place] [facility] Jul 19, 2024 10:00 AM AMBULATORY - PSYCHIATRY [facility] [place] [facility] Jul 23, 2024 01:00 PM AMBULATORY - PSYCHIATRY [facility] [place] [facility] Aug 19, 2024 02:00 PM AMBULATORY - MEDICINE [facility] [place] [facility] Advance Directives: All historical and current [...] ADVANCE DIRECTIVE PETROS MOTLEY [facility] Radiology Reports: +/- 30 days of [...] MAMMO/SCRE ENING, INCLUDING CAD, BILAT: JAYLAN ALVAREZ [id number] -1980 F Exm Date: MAR 09, 2024@08:45 Req Phys: TRINH FRANCO Pat Loc: CWM/NO/PACT 5 (Req'g Loc) Img Loc: OUTSIDE GENERAL RADIOLOGY Service: Unknown Screen: Patient is unable to answer or is unsure Screen Comment: cc exam (Case [id number] COMPLETE) OUTSIDE MAMMO/SCREENING, INCLUDIN(RAD Detailed) CPT:82834 Reason for Study: screening Clinical History: Report Status: Electronically Filed Date Reported: MAR 09, 2024 Report: Community care exam; see CPRS/JLV for outside radiology report/results Impression: Community care exam; see CPRS/JLV for outside radiology report/results Primary Diagnostic Code: BI-RADS CATEGORY 2 (Benign) VERIFIED BY: / *ELECTRONICALLY FILED* [facility] [place] [facility] Encounter Notes: All associated encounter notes This section contains the clinical notes associated to the Encounter. Date/Time Encounter Note(s) Provider Source Mar 24, 2024 08:44 AM LETTERS: LOCAL TITLE: PATIENT LETTER (T) STANDARD TITLE: LETTERS DATE OF NOTE: MAR 24, 2024@08:44 ENTRY DATE: MAR 24, 2024@08:44:08 AUTHOR: CONCHA BENTON COSIGNER: URGENCY: STATUS: COMPLETED [facility] Toll Free Number Primary Care Telephone Assistance can be reached at extension [phone] [facility] scheduling can be reached at extension [phone] [facility] scheduling can be reached at ext [phone] JAYLAN Zhou ALVAREZ [address], [place], [address] March 24, 2024 Dear Nash Alvarez, Thank you for having your mammogram done. I have received the results of the mammogram performed on March 09, 2024 at [place] [facility] and the study was normal (BI-RADS 2, Density B). According to the recommendations of the [place] [employer], you should have this study repeated in 1 year. If you have any changes to your breasts or any concerns, please call to have an exam. Please feel free to call with any questions at [phone]. Sincerely, CLAUDIA Cast [facility] [place], [place] Sincerely, Your Primary Care Team [facility] [address] [facility] [address] [place] [address] [place] [address] [phone] [facility] [address] [place] [address] [place] [address] [phone] [facility] [address] [facility] [place] [id number] [place] [address] CONCHA BENTON [place] [facility] Mar 24, 2024 08:41 AM [place] NOTE : LOCAL TITLE: SMART BREAST IMAGING FOLLOW-UP STANDARD TITLE: [place] NOTE DATE OF NOTE: MAR 24, 2024@08:41 ENTRY DATE: MAR 24, 2024@08:41:59 AUTHOR: CONCHA BENTON EXP COSIGNER: URGENCY: STATUS: COMPLETED Record prior or outside mammogram: Written Report Available Outside report Received on: March 24, 2024 Location: [facility] Breast Tomosynthesis Date: March 09, 2024 Patient does not have dense breast tissue Interpretation of results and decision making Summary of results: BIRAD 2:Density B Radiologist recommends the following: Return for screening mammogram in one year Method patient contacted by: Non-Registered Letter Date: March 24, 2024 Additional Information: Additional Information: /mat/ Concha Benton RN, BSN Women's Healthcare Navigator, RN Signed: 03/24/2024 08:43 Receipt Acknowledged By: 03/30/2024 11:33 /mat/ EVANS MELTON ORDER ENTRY SPECIALIST CONCHA BENTON [facility]
--- OUTSIDE RECORDS SUMMARY | 2024-06-15 10:50 | XMS_ITS | Encounter Summary ---
Author Name [facility] of [facility] ([place]) Organization [facility] of [facility] ([place]) Address [address] [place] [address] Care Team Providers Care Research Affiliate Name Role Phone TRINH FRANCO Primary Care [...] Relationship to Policy Gibson CAREMARK PRESCRIPT ION [facility] Dec 21, 2022 [id number] [phone] Jelani ALVAREZ PATIENT [facility] ([id number]) PRESCRIPT ION GIC Jun 07, 2022 [id number] [phone] Jelani ALVAREZ PATIENT [facility] ORGANIZAT ION [facility] STATE AGENC Y Jun 07, 2022 [id number] [phone] Jelani ALVAREZ PATIENT Selected Encounter This section includes the information on record at [place] for the Encounter. Date/Time Encounter Type Encounter Description Reason Provider Source May 10, 2024 03:35 PM Outpatient Encounter PRIMARY CARE/MEDICINE SAMANTHA GRIFFIN IHE Encounter Template Text not used by [facility] Plan of Treatment: Future Appointments (+ 6 months) and Future Tests (+/- 45 days) The Plan of Treatment section includes future care activities for the patient from all [place] [facility]. This section includes future appointments [...] 14, 2024 11:00 AM AMBULATORY - PSYCHIATRY [place] [facility] [place] [place] [facility] May 14, 2024 01:00 PM AMBULATORY - PSYCHIATRY [place] [facility] [place] [facility] May 28, 2024 01:00 PM AMBULATORY - PSYCHIATRY [place] [facility] [place] [facility] Jun 11, 2024 01:30 PM AMBULATORY - PSYCHIATRY [place] [facility] [place] [facility] Jun 11, 2024 02:00 PM AMBULATORY - PSYCHIATRY [place] [facility] [place] [facility] Jun 15, 2024 10:45 AM AMBULATORY - MEDICINE [place] C [facility] [place] [facility] Jun 18, 2024 01:00 PM AMBULATORY - PSYCHIATRY [place] [facility] [place] [place] [facility] Jun 25, 2024 01:00 PM AMBULATORY - PSYCHIATRY [place] [facility] [place] [facility] Jul 02, 2024 01:00 PM AMBULATORY - PSYCHIATRY [place] [facility] [place] [facility] Jul 09, 2024 01:00 PM AMBULATORY - PSYCHIATRY [place] [facility] [place] [facility] Jul 16, 2024 01:00 PM AMBULATORY - PSYCHIATRY [place] [facility] [place] [facility] Jul 19, 2024 10:00 AM AMBULATORY - PSYCHIATRY [place] [facility] [place] [facility] Jul 23, 2024 01:00 PM AMBULATORY - PSYCHIATRY [place] [facility] [place] [facility] Aug 19, 2024 02:00 PM AMBULATORY - MEDICINE [place] C [facility] [place] [facility] Active, Pending, and Scheduled Orders This section includes a listing of several types of active, pending, and scheduled orders, including clinic medications orders, diagnostic test orders, procedure orders and consult orders; where the start date of the order is 45 days before the date of the Encounter or 45 days after the date of theEncounter. The data comes from all [place] treatment facilities. Test Date/Time Test Type Test Details Facility Name May 10, 2024 03:43 PM Consult Order COMMUNITY CARE-UROLOGY Cons Wool Hat Hydraulicker's Choice [facility] Lab Results: +/- 30 days of [...] Range Comment May 10, 2024 08:51 AM [facility] HLA-B27 (QU) Specimen Type: BLOOD Comment: normalcy status - Abnormal Test Performed by JRKICKZGaetano, Compare And Share [facility], [address] [place] [address] Rodger Bender M.D., Ph.D., Director of Laboratories , [facility] [id number] TEST PERFORMED AT: , Ordering Provider: LEADNRA BAEZ V Report Released Date/Time: May 06, 2024 01:47 PM Reporting Lab: [facility] [address] [facility] [address] Performing Lab: [facility] [address] [address] HLA-B27 Positive Negative May 10, 2024 08:51 AM [facility] T-SPOT TB PANEL Specimen Type: BLOOD [...] For additional information, please refer to http://education .[employer]/faq/ZBV139 (This link is being provided for informational/ educational purposes only.) Test Performed by JRKICKZConorLake Clear, Compare And Share [facility], [address] [place] [address] Rodger Bender M.D., Ph.D., Director of Laboratories , [place] [id number] TEST PERFORMED AT: , Ordering Provider: LEANDRA BAEZ V Report Released Date/Time: May 06, 2024 01:47 PM Reporting Lab: [address] [address] Performing Lab: [facility] [address] [address] M-[id number] T (o) Negative Negative T-SPOT-PNLA 0 T-SPOT-PNLB 2 Q-BZIS-UBHJX RL Passed T-KWQK-BUKVI RL Passed May 10, 2024 08:51 AM [facility] JOSEPH SCREEN/TITER Specimen Type: SERUM No comment entered. Ordering Provider: LEANDRA BAEZ V Report Released Date/Time: May 06, 2024 01:47 PM Reporting Lab: [address] [address] Performing Lab: [facility] [address] [facility] [address] JOSEPH SCREEN NEG NEG <1:40 May 10, 2024 08:51 AM [facility] HEPATITIS B CORE (Total) Ab Specimen [...] A Reactive result ( Positive prior to 10/14/13) may indicate either current or previous hepatitis B infection. Antibodies to Hepatitis B Core may be the only marker of recent hepatitis B infection during the window period when Hepatitis B surface antigen has disappeared and Hepatitis B surface antibodies are not yet detectable. Ordering Provider: LEANDRA BAEZ V Report Released Date/Time: May 06, 2024 01:47 PM Reporting Lab: [facility] [address] [facility] [address] Performing Lab: [address] [address] HEPATITIS B CORE (Total) Ab Non Reactive Non Reactive May 10, 2024 08:51 AM [facility] HEPATITIS B SURFACE ANTIBODY (HBsAb)-WH Specimen [...] May 06, 2024 01:47 PM Reporting Lab: [address] [address] Performing Lab: [address] [address] HBsAb REACTIVE Non Reactive May 10, 2024 08:51 AM [facility] CBC Specimen Type: BLOOD No comment entered. Ordering Provider: LEANDRA BAEZ V Report Released Date/Time: May 06, 2024 01:47 PM Reporting Lab: [address] [address] Performing Lab: [address] [address] WBC 5.62 10*3/uL 4.50-11.00 RBC 3.76 10*6/uL L 3.93-5.16 HGB 12.3 g/dL 12-15.2 HCT 35.8 L 36.6-45.6 MCV 95.2 fL 82-99 MCHC 34.4 g/dL 30.8-35.1 PLT 322 10*3/uL 140-360 RDW-CV 11.8 L 12.0-16.0 MCH 32.7 pg H 26.2-32.6 May 10, 2024 08:51 AM [facility] HEPATITIS C ANTIBODY (HCV)-ARC Specimen Type: SERUM Comment: Hep C Ab: No HCV antibody detected. If recent infection is suspected or other evidence suggests HCV infection, consider HCV nucleic acid testing Ordering Provider: LEANDRA BAEZ V Report Released Date/Time: May 06, 2024 01:47 PM Reporting Lab: [address] [address] Performing Lab: [address] [address] HEPATITIS C ANTIBODY NON-REACTIVE NON-REACTI VE May 10, 2024 08:51 AM [facility] LIVER FUNCTION Specimen Type: SERUM No comment entered. Ordering Provider: LEANDRA BAEZ V Report Released Date/Time: May 06, 2024 01:47 PM Reporting Lab: [address] [address] Performing Lab: [address] [address] PROTEIN,TOTA L 6.3 g/dL 6.0-8.3 ALBUMIN 3.5 g/dL 3.5-5.0 ALKALINE PHOSPHATASE 46 U/L 40-150 AST 14 U/L 5-34 ALT 11 U/L BILIRUBIN, TOTAL 0.4 mg/dL 0.2-1.2 May 10, 2024 08:51 AM [facility] URIC ACID Specimen Type: SERUM No comment entered. Ordering Provider: LEANDRA BAEZ V Report Released Date/Time: May 06, 2024 01:47 PM Reporting Lab: [facility] [place] [facility] [address] [facility] [address] Performing Lab: [facility] [address] [facility] [address] URIC ACID 4.4 mg/dL 2.6-6 May 10, 2024 08:51 AM [facility]ITALTRN [facility]ITAL[facility] PO4 Specimen Type: SERUM No comment entered. Ordering Provider: LEANDRA BAEZ V Report Released Date/Time: May 06, 2024 01:47 PM Reporting Lab: [facility]OSPITALTRN [facility]ITALUSEMARIA [facility] [address] [facility] [address] Performing Lab: [facility]OSPITALUSETS [address] [address] PO4 4.0 mg/dL 2.5-5.0 May 10, 2024 08:51 AM [facility] TSH Specimen Type: SERUM No comment entered. Ordering Provider: LEANDRA BAEZ V Report Released Date/Time: May 06, 2024 01:47 PM Reporting Lab: [facility]ERRMON[facility] HOSPITALN [facility]OSPITALUSE[address] [address] Performing Lab: [facility]ERRJ[facility] HOSPITALTRN [facility] HOSPITALUSETS [address] [address] TSH 1.38 u[IU]/mL 0.35-5.00 May 10, 2024 08:51 AM [facility] BASIC METABOLIC PANEL (non-fasting) Specimen Type: SERUM No comment entered. Ordering Provider: LEANDRA BAEZ V Report Released Date/Time: May 06, 2024 01:47 PM Reporting Lab: [facility] HOSPITALTRN [facility] HOSPITALUSETS [address] [address] Performing Lab: [facility]ERRMONRO[facility] COUNTY HOSPITALN [facility]OSPITALUSETS [address] [address] UREA NITROGEN 20 mg/dL 7-25 GLUCOSE 83 mg/dL 65-100 SODIUM 136 mmol/L 135-145 POTASSIUM 4.4 mmol/L 3.5-5.0 CHLORIDE 107 mmol/L 100-110 CO2 21 meq/L 20-30 CREATININE, Serum 0.75 mg/dL 0.50-1.40 eGFR(CKD-EPI 2020) >90 mL/min >60 Advance Directives: All historical and current Section [...] HAND 3 OR MORE VIEWS: JAYLAN ALVAREZ [id number] -1980 F Exm Date: MAY 10, 2024@10:36 Req Phys: LEANDRA BAEZ V Pat Loc: CWM/NO/RHEUMATOLOGY B (Req'g L Img Loc: [facility]/BUILDING 1 Service: Unknown Screen: Patient answered no [facility] [place] [address] (Case 27 COMPLETE) FOOT 3 OR MORE VIEWS (RIGHT) (RAD Detailed) CPT:68955 Proc Modifiers : RIGHT CPT Modifiers : RT RIGHT SIDE Reason for Study: Evaluate for evid of spondyloarthropathy/erosion (Case 28 COMPLETE) FOOT 3 OR MORE VIEWS(LEFT) (RAD Detailed) CPT:41199 Proc Modifiers : LEFT CPT Modifiers : LT LEFT SIDE Clinical History: Pt with hx of on etanercept. Reports hand swelling Report Status: Verified Date Reported: MAY 10, 2024 Date Verified: MAY 10, 2024 Automatic Casting Machine Operator E-Sig:/ES/ANTONELLA BEARD JR Report: Study: Weight-bearing [...] Primary Interpreting Staff: ANTONELLA BEARD JR, Radiologist (Automatic Casting Machine Operator) /ANTONELLA CANO JR [facility] May 10, 2024 10:35 AM SPINE LUMBOSACRAL MIN 4 VIEWS: JAYLAN ALVAREZ [id number] -1980 F Exm Date: MAY 10, 2024@10:35 Req Phys: LEANDRA BAEZ V Pat Loc: M/NO/RHEUMATOLOGY B (Req'g L Img Loc: [facility] 1 Service: Unknown Screen: Patient answered no [facility] [place] [place] [address] (Case 25 COMPLETE) SPINE LUMBOSACRAL MIN 4 VIEWS (RAD Detailed) CPT:74154 Reason for Study: Evaluate for evid of spondyloarthropathy Clinical History: Pt with hx of on etanercept Report Status: Verified Date Reported: MAY 10, 2024 Date Verified: MAY 10, 2024 Automatic Casting Machine Operator E-Sig:/ES/ANTONELLA BEARD JR Report: Study: AP, [...] Primary Interpreting Staff: ANTONELLA BEARD JR, Radiologist (Automatic Casting Machine Operator) /ANTONELLA CANO JR [facility] May 10, 2024 10:35 AM SPINE CERVICAL, 4 OR 5 VIEWS: JAYLAN ALVAREZ [id number] -1980 F Exm Date: MAY 10, 2024@10:35 Req Phys: LEANDRA BAEZ V Pat Loc: [facility]/NO/RHEUMATOLOGY B (Req'g L Img Loc: [facility] 1 Service: Unknown Screen: Patient answered no [facility] [place] [address] (Case 26 COMPLETE) SPINE CERVICAL, 4 OR 5 VIEWS (RAD Detailed) CPT:20504 Reason for Study: Evaluate for evid of spondyloarthropathy Clinical History: Pt with hx of on etanercept Report Status: Verified Date Reported: MAY 10, 2024 Date Verified: MAY 10, 2024 Automatic Casting Machine Operator E-Sig:/ES/ANTONELLA BEARD JR Report: Study: AP, [...] Primary Interpreting Staff: ANTONELLA BEARD JR, Radiologist (Automatic Casting Machine Operator) /ANTONELLA CANO JR [place] [facility] May 10, 2024 10:34 AM FOOT 3 OR MORE VIEWS (RIGHT): JAYLAN ALVAREZ [id number] -1980 F Exm Date: MAY 10, 2024@10:34 Req Phys: LEANDRA BAEZ V Pat Loc: CW/NO/RHEUMATOLOGY B (Req'g L Img Loc: [facility] 1 Service: Unknown Screen: Patient answered no [facility] [place] [address] (Case 23 COMPLETE) HAND 3 OR MORE VIEWS(LEFT) (RAD Detailed) CPT:26623 Reason for Study: Evaluate for evid of erosion - bilateral exam (Case 24 COMPLETE) HAND3 OR MORE VIEWS(RIGHT) (RAD Detailed) CPT:70808 Clinical History: Pt with hx of on etanercept. Reports foot swelling also hx of kidney stones Report Status: Verified Date Reported: MAY 10, 2024 Date Verified: MAY 10, 2024 Automatic Casting Machine Operator E-Sig:/ES/ANTONELLA BEARD JR Report: Study: AP, [...] Primary Interpreting Staff: ANTONELLA BEARD JR, Radiologist (Automatic Casting Machine Operator) /ANTONELLA CANO JR [place] [facility] [place] [facility] Encounter Notes: All associated encounter notes This section contains the clinical notes associated to the Encounter. Date/Time Encounter Note(s) Provider Source May 10, 2024 03:35 PM PRIMARY CARE [facility] E MESSAGING: LOCAL TITLE: PRIMARY CARE SECURE MESSAGING STANDARD TITLE: PRIMARY CARE SECURE MESSAGING DATE OF NOTE: MAY 10, 2024@15:35 ENTRY DATE: MAY 10, 2024@15:35:47 AUTHOR: SAMANTHA GRIFFIN EXP COSIGNER: URGENCY: STATUS: COMPLETED PRIMARY CARE SECURE MESSAGING Has ADDENDA ------Original Message ------- Sent: 05/10/2024 10:41 AM ET From: JAYLAN ALVAREZ To: Yuli FRANCO_PRIMARY CARE_[facility] Subject: Appointment:Community care appointment Good morning, I have an appointment with urologist Dr Celis at [facility] on June 15, 2024. I have been seeing Dr Celis for over ten years regarding kidney stones and uti etc. I am working on transferring all [place] healthcare needs to the [place] but I am wondering if I can have a community care referral to see Dr Celis for this appointment. ------Original Message ------- Sent: 05/10/2024 03:35 PM ET From: SAMANTHA GRIFFIN To: JAYLAN ALVAREZ Subject: Appointment:Community care appointment Fortino Krishna, Yes, we will place a community care Urology consult for you can continuing seeing Dr. Celis. Take good care Samantha Griffin, customer care agent/Women's health team nurse /mat/ SAMANTHA GRIFFIN, MSN, RN, CNL PRIMARY CARE TEAM NURSE Signed: 05/10/2024 15:35 05/10/2024 ADDENDUM STATUS: COMPLETED A CC Urology consult placed and held for provider signature /mat/ SAMANTHA GRIFFIN, MSN, RN, CNL PRIMARY CARE TEAM NURSE Signed: 05/10/2024 15:36 SAMANTHA GRIFFIN [place] [facility]
--- OUTSIDE RECORDS SUMMARY | 2024-06-15 10:50 | XMS_ITS ---
Author Name Department of Vetera Affairs ([place]) Organization [facility] ([place]) Address [address] [place] [address] Care Team Providers Care Machine Wood Sander Name Role Phone TRINH FRANCO Primary Care [...] Relationship to Policy Gibson CAREMARK PRESCRIPT ION [facility] Dec 21, 2022 [id number] Jelani ALVAREZ PATIENT [employer] ([id number]) PRESCRIPT ION GI Jun 07, 2022 [id number] Jelani ALVAREZ PATIENT [facility] CE ORGANIZAT ION [facility] STATE AGENC Y Jun 07, 2022 [id number] [phone] Jelani ALVAREZ PATIENT Selected Encounter This section includes the information on record at [place] for the Encounter. Date/Time Encounter Type Encounter Description Reason Pro vider Source Apr 06, 2024 12:00 AM Outpatient Encounter EVENT (HISTORICAL) IHE Encounter Template Text not used by VA Plan of Treatment: Future Appointments (+ 6 months) and Future Tests (+/- 45 days) The Plan of Treatment section includes future care activities for the patient from all [place] [facility]. This section includes future appointments and future orders which are active, pending or scheduled. Future Appointments This section includes appointments that were scheduled to occur 6 months from the date of the Encounter, up to a maximum of 20 appointments. The data comes from all [place] treatment facilities. Appointment Date/Time Appointment Type Appointme nt Facility Name Apr 16, 2024 11:00 AM AMBULATORY - PSYCHIATRY [place] [facility] [place] [facility] May 06, 2024 01:00 PM AMBULATORY - MEDICINE [place] [facility] May 14, 2024 11:00 AM AMBULATORY - PSYCHIATRY [facility] [place] [facility] May 14, 2024 01:00 PM AMBULATORY - PSYCHIATRY [place] [facility] [place] [facility] May 28, 2024 01:00 PM AMBULATORY - PSYCHIATRY [place] [facility] [place] [facility] Jun 11, 2024 01:30 PM AMBULATORY - PSYCHIATRY [facility] [place] [facility] Jun 11, 2024 02:00 PM AMBULATORY - PSYCHIATRY [place] [facility] [place] [facility] Jun 15, 2024 10:45 AM AMBULATORY - MEDICINE [place] [facility] Jun 18, 2024 01:00 PM AMBULATORY - PSYCHIATRY [place] [facility] [place] [facility] Jun 25, 2024 01:00 PM AMBULATORY - PSYCHIATRY [facility] [place] [facility] Jul 02, 2024 01:00 PM AMBULATORY - PSYCHIATRY [facility] [place] [facility] Jul 09, 2024 01:00 PM AMBULATORY - PSYCHIATRY [place] [facility] [place] [facility] Jul 16, 2024 01:00 PM AMBULATORY - PSYCHIATRY [facility] [place] [facility] Jul 19, 2024 10:00 AM AMBULATORY - PSYCHIATRY [facility] [place] [facility] Jul 23, 2024 01:00 PM AMBULATORY - PSYCHIATRY [place] [facility] [place] [facility] Aug 19, 2024 02:00 PM AMBULATORY - MEDICINE [place] [facility] Active, Pending, and Scheduled Orders This section includes a listing of several types of active, pending, and scheduled orders, including clinic medications orders, diagnostic test orders, procedure orders and consult orders; where the start date of the order is 45 days before the date of the Encounter or 45 days after the date of theEncounter. The data comes from all [facility] facilities. Test Date/Time Test Type Test Details Facility Name May 10, 2024 03:43 PM Consult Order COMMUNITY CARE-UROLOGY Cons Souvenir Assembler's Choice [place] [facility] Advance Directives: All historical and [...] Mar 25, 2023 ADVANCE DIRECTIVE PETROS [facility] Radiology Reports: +/- 30 [...] the Encounter. The data comes from all [facility] facilities. Date/Time Radiology Report Provider Source Mar 09, 2024 08:45 AM OUTSIDE MAMMO/SCRE ENING, INCLUDING CAD, BILAT: JAYLAN ALVAREZ [id number] -1980 F Exm Date: MAR 09, 2024@08:45 Req Phys: TRINH FRANCO Pat Loc: CWM/NO/PACT 5 (Req'g Loc) Img Loc: OUTSIDE GENERAL RADIOLOGY Service: Unknown Screen: Patient is unable to answer or is unsure Screen Comment: cc exam (Case 196 COMPLETE) OUTSIDE MAMMO/SCREENING, INCLUDIN(RAD Detailed) CPT:18043 Reason for Study: screening Clinical History: Report Status: Electronically Filed Date Reported: MAR 09, 2024 Report: Community care exam; see CPRS/JLV for outside radiology report/results Impression: Community care exam; see CPRS/JLV for outside radiology report/results Primary Diagnostic Code: BI-RADS CATEGORY 2 (Benign) VERIFIED BY: / *ELECTRONICALLY FILED* [facility] Encounter Notes: All associated encounter notes This section contains the clinical notes associated to the Encounter. Date/Time Encounter Note(s) Provider Source Apr 06, 2024 12:00 AM NONVA NOTE: LOCAL TITLE: NON-VA OUTPATIENT NOTES STANDARD TITLE: NONVA NOTE DATE OF NOTE: APR 06, 2024 ENTRY DATE: JUN 08, 2024@12:15:25 AUTHOR: TONY ZAMORANO COSIGNER: URGENCY: STATUS: COMPLETED VistA Imaging - Scanned Document SCANNED DOCUMENT SIGNATURE NOT REQUIRED Electronically Filed: 06/08/2024 by: KIET ZAMORANO Chemical Detection Expert KIET ZAMORANO [facility]
--- OUTSIDE RECORDS SUMMARY | 2024-06-15 10:50 | XMS_ITS | Encounter Summary ---
Author Name [facility] [place] Organization [facility] [place] Address [address] [place] [address] Care Team Providers Care Frame Builder Name Role Phone TRINH FRANCO Primary Care [...] Relationship to Policy Gibson CAREMARK [facility] Dec 21, 2022 [id number] Jelani ALVAREZ PATIENT [facility] ([id number]) [facility] Jun 07, 2022 [id number] Jelani ALVAREZ PATIENT [facility] CE ORGANIZAT ION [facility] Jun 07, 2022 [id number] Jelani ALVAREZ PATIENT Selected Encounter This section includes the information on record at [place] for the Encounter. Date/Time Encounter Type Encounter Description Reason Provider Source May 14, 2024 11:00 AM OFFICE O/P EST LOW 20 [facility] - IND ICD-10-CM F34.1 Dysthymic disorder JENNIFER PALUMBO IHE Encounter Template Text not used by [place] [...] activities for the [facility] [place] [facility]. This section includes future appointments and [...] 28, 2024 01:00 PM AMBULATORY - PSYCHIATRY [place] [facility] [place] [facility] Jun 11, 2024 01:30 PM AMBULATORY - PSYCHIATRY [facility] [place] [facility] Jun 11, 2024 02:00 PM AMBULATORY - PSYCHIATRY [facility] [place] [facility] Jun 15, 2024 10:45 AM AMBULATORY - MEDICINE DE C [facility] [place] [facility] Jun 18, 2024 01:00 PM AMBULATORY - PSYCHIATRY [facility] [place] [facility] Jun 25, 2024 01:00 PM AMBULATORY - PSYCHIATRY [facility] [place] [facility] Jul 02, 2024 01:00 PM AMBULATORY - PSYCHIATRY [facility] [place] [facility] Jul 09, 2024 01:00 PM AMBULATORY - PSYCHIATRY [facility] [place] [facility] Jul 16, 2024 01:00 PM AMBULATORY - PSYCHIATRY [facility] [place] [facility] Jul 19, 2024 10:00 AM AMBULATORY - PSYCHIATRY [facility] [place] [facility] Jul 23, 2024 01:00 PM AMBULATORY - PSYCHIATRY [facility] [place] [facility] Aug 19, 2024 02:00 PM AMBULATORY - MEDICINE DE C [facility] [place] [facility] Active, Pending, and Scheduled Orders This section includes a listing of several types of active, pending, and scheduled orders, including clinic medications orders, diagnostic test orders, procedure orders and consult orders; where the start date of the order is 45 days before the date of the Encounter or 45 days after the date of theEncounter. The data comes from all [place] treatment facilities. Test Date/Time Test Type Test Details Facility Name May 10, 2024 03:43 PM Consult Order [facility]-UROLOGY Cons Bar [facility] Lab Results: +/- 30 days [...] Range Comment May 10, 2024 08:51 AM [facility] HLA-B27 (QU) Specimen Type: BLOOD Comment: normalcy status - Abnormal Test [email or web address], [facility], [address] [place] [address] Rodger Bender M.D., Ph.D., Director of Laboratories , [place] [id number] TEST PERFORMED AT: , Ordering Provider: LEANDRA BAEZ V Report Released Date/Time: May 06, 2024 01:47 PM Reporting Lab: [facility] [address] [facility] [address] Performing Lab: [facility] [address] [address] HLA-B27 Positive Negative May 10, 2024 08:51 AM [facility] T-SPOT TB PANEL Specimen Type: BLOOD [...] For additional information, please refer to http://education .mana.bo/faq/EHN854 (This link is being provided for informational/ educational purposes only.) Test Performed by [facility], [facility], [address] [place] [address] Rodger Bender M.D., Ph.D., Director of Laboratories , [facility] [id number] TEST PERFORMED AT: , Ordering Provider: LEANDRA BAEZ V Report Released Date/Time: May 06, 2024 01:47 PM Reporting Lab: [facility] [address] [facility] [address] Performing Lab: [facility] [address] [address] E-QPES-FWAEG T (o) Negative Negative T-SPOT-PNLA 0 T-SPOT-PNLB 2 L-WAFF-NEUHY RL Passed P-HRZY-DAHEZ RL Passed May 10, 2024 08:51 AM [facility] JOSEPH SCREEN/TITER Specimen Type: SERUM No comment entered. Ordering Provider: LEANDRA BAEZ V Report Released Date/Time: May 06, 2024 01:47 PM Reporting Lab: [facility] [address] [facility] [address] Performing Lab: [facility] [address] [facility] [address] JOSEPH SCREEN NEG NEG <1:40 May 10, 2024 08:51 AM [facility] HEPATITIS B CORE (Total) Ab Specimen [...] May 06, 2024 01:47 PM Reporting Lab: [facility] [address] [facility] [address] Performing Lab: [address] [address] HEPATITIS B CORE (Total) Ab Non Reactive Non Reactive May 10, 2024 08:51 AM [facility] HEPATITIS B SURFACE ANTIBODY (HBsAb)-WH Specimen [...] May 06, 2024 01:47 PM Reporting Lab: [address] [address] Performing Lab: [address] [address] HBsAb REACTIVE Non Reactive May 10, 2024 08:51 AM [facility] CBC Specimen Type: BLOOD No comment entered. Ordering Provider: LEANDRA BAEZ V Report Released Date/Time: May 06, 2024 01:47 PM Reporting Lab: [facility] [address] [facility] [address] Performing Lab: [address] [address] WBC 5.62 10*3/uL 4.50-11.00 RBC 3.76 10*6/uL L 3.93-5.16 HGB 12.3 g/dL 12-15.2 HCT 35.8 L 36.6-45.6 MCV 95.2 fL 82-99 MCHC 34.4 g/dL 30.8-35.1 PLT 322 10*3/uL 140-360 RDW-CV 11.8 L 12.0-16.0 MCH 32.7 pg H 26.2-32.6 May 10, 2024 08:51 AM [facility] HEPATITIS C ANTIBODY (HCV)-ARC Specimen Type: SERUM Comment: Hep C Ab: No HCV antibody detected. If recent infection is suspected or other evidence suggests HCV infection, consider HCV nucleic acid testing Ordering Provider: LEANDRA BAEZ V Report Released Date/Time: May 06, 2024 01:47 PM Reporting Lab: [address] [address] Performing Lab: [address] [address] HEPATITIS C ANTIBODY NON-REACTIVE NON-REACTI VE May 10, 2024 08:51 AM [facility] LIVER FUNCTION Specimen Type: SERUM No comment entered. Ordering Provider: LEANDRA BAEZ V Report Released Date/Time: May 06, 2024 01:47 PM Reporting Lab: [address] [address] Performing Lab: [address] [address] PROTEIN,TOTA L 6.3 g/dL 6.0-8.3 ALBUMIN 3.5 g/dL 3.5-5.0 ALKALINE PHOSPHATASE 46 U/L 40-150 AST 14 U/L 5-34 ALT 11 U/L BILIRUBIN, TOTAL 0.4 mg/dL 0.2-1.2 May 10, 2024 08:51 AM [facility] URIC ACID Specimen Type: SERUM No comment entered. Ordering Provider: LEANDRA BAEZ V Report Released Date/Time: May 06, 2024 01:47 PM Reporting Lab: [facility]MAR [place] [facility] [address] [facility] [address] Performing Lab: [facility] ALMARL W[facility]N [facility] [address] [facility] [address] URIC ACID 4.4 mg/dL 2.6-6 May 10, 2024 08:51 AM [facility] ALMARL TRN [facility] PO4 Specimen Type: SERUM No comment entered. Ordering Provider: LEANDRA BAEZ V Report Released Date/Time: May 06, 2024 01:47 PM Reporting Lab: [facility]ITAL[facility] [address] [facility] [address] Performing Lab: [facility]ITALTRN [facility]ITAL[facility]ETS [address] [address] PO4 4.0 mg/dL 2.5-5.0 May 10, 2024 08:51 AM [facility]MARUAB MEDICAL WESTN [facility] TSH Specimen Type: SERUM No comment entered. Ordering Provider: LEANDRA BAEZ V Report Released Date/Time: May 06, 2024 01:47 PM Reporting Lab: [facility]MAR[facility]OSPITALTRN [facility] [address] [facility] [address] Performing Lab: [facility]MAR[facility]OSPITALTRN [facility]ITAL[facility]ETS [address] [address] TSH 1.38 u[IU]/mL 0.35-5.00 May 10, 2024 08:51 AM [facility] ALMARL [facility] BASIC METABOLIC PANEL (non-fasting) Specimen Type: SERUM No comment entered. Ordering Provider: LEANDRA BAEZ V Report Released Date/Time: May 06, 2024 01:47 PM Reporting Lab: [facility] ALMARGR[facility] HOSPITALTRN [facility]ITAL[facility] [address] [facility] [address] Performing Lab: [facility] ALMARGR[facility] HOSPITALTRN [facility]ITALUSETS [address] [address] UREA NITROGEN 20 mg/dL 7-25 GLUCOSE 83 [...] and tobacco- related health factors from the [place] facility where the Encounter took place. Current Smoking Status This section includes the most current smoking, or tobacco-related health factor, from the [place] facility where the Encounter took place. Date/Time Current Smoking Status Comment Facil ity Mar 18, 2023 09:00 AM [place]-TOBACCO NEVER USED [place] Advance Directives: All historical and current Section [...] PETROS MOTLEY [facility] Radiology Reports: +/- 30 [...] the Encounter. The data comes from all [place] treatment facilities. Date/Time Radiology Report Provider Source May 10, 2024 10:36 AM HAND 3 OR MORE VIEWS: JAYLAN ALVAREZ [id number] -1980 F Exm Date: MAY 10, 2024@10:36 Req Phys: LEANDRA BAEZ V Pat Loc: CWM/NO/RHEUMATOLOGY B (Req'g L Img Loc: [facility]/BUILDING 1 Service: Unknown Screen: Patient answered no [facility] [place] [place] [address] (Case 27 COMPLETE) FOOT 3 OR MORE VIEWS (RIGHT) (RAD Detailed) CPT:39717 Proc Modifiers : RIGHT CPT Modifiers : RT RIGHT SIDE Reason for Study: Evaluate for evid of spondyloarthropathy/erosion (Case 28 COMPLETE) FOOT 3 OR MORE VIEWS(LEFT) (RAD Detailed) CPT:59867 Proc Modifiers : LEFT CPT Modifiers : LT LEFT SIDE Clinical History: Pt with hx of on etanercept. Reports hand swelling Report Status: Verified Date Reported: MAY 10, 2024 Date Verified: MAY 10, 2024 Pewter Caster E-Sig:/ES/ANTONELLA BEARD JR Report: Study: Weight-bearing AP, [...] Primary Interpreting Staff: ANTONELLA BEARD JR, Radiologist (Pewter Caster) /ANTONELLA CANO JR [facility] May 10, 2024 10:35 AM SPINE LUMBOSACRAL MIN 4 VIEWS: JAYLAN ALVAREZ [id number] -1980 F Exm Date: MAY 10, 2024@10:35 Req Phys: LEANDRA BAEZ V Pat Loc: CWM/NO/RHEUMATOLOGY B (Req'g L Img Loc: [facility] 1 Service: Unknown Screen: Patient answered no [place] [address] (Case 25 COMPLETE) SPINE LUMBOSACRAL MIN 4 VIEWS (RAD Detailed) CPT:70291 Reason for Study: Evaluate for evid of spondyloarthropathy Clinical History: Pt with hx of on etanercept Report Status: Verified Date Reported: MAY 10, 2024 Date Verified: MAY 10, 2024 Pewter Caster E-Sig:/ES/ANTONELLA BEARD JR Report: Study: AP, left [...] Primary Interpreting Staff: ANTONELLA BEARD JR, Radiologist (Pewter Caster) /ANTONELLA CANO JR [place] RealOpsRL WSTRN MeetMeTixUSETS [facility] May 10, 2024 10:35 AM SPINE CERVICAL, 4 OR 5 VIEWS: JAYLAN ALVAREZ [id number] -1980 F Exm Date: MAY 10, 2024@10:35 Req Phys: LEANDRA BAEZ V Pat Loc: M/NO/RHEUMATOLOGY B (Req'g L Img Loc: [facility] 1 Service: Unknown Screen: Patient answered no [place] RealOpsRL SandagTRN Informaat [place] [address] (Case 26 COMPLETE) SPINE CERVICAL, 4 OR 5 VIEWS (RAD Detailed) CPT:92173 Reason for Study: Evaluate for evid of spondyloarthropathy Clinical History: Pt with hx of on etanercept Report Status: Verified Date Reported: MAY 10, 2024 Date Verified: MAY 10, 2024 Pewter Caster E-Sig:/MATEO/ANTONELLA BEARD JR Report: Study: AP, lateral and [...] Primary Interpreting Staff: ANTONELLA BEARD JR, Radiologist (Pewter Caster) /ANTONELLA CANO JR [facility] May 10, 2024 10:34 AM FOOT 3 OR MORE VIEWS (RIGHT): JAYLAN ALVAREZ [id number] -1980 F Exm Date: MAY 10, 2024@10:34 Req Phys: LEANDRA BAEZ V Pat Loc: CWM/NO/RHEUMATOLOGY B (Req'g L Img Loc: [facility]/BUILD[facility] 1 Service: Unknown Screen: [place] [address] (Case 23 COMPLETE) HAND 3 OR MORE VIEWS(LEFT) (RAD Detailed) CPT:42493 Reason for Study: Evaluate for evid of erosion - bilateral exam (Case 24 COMPLETE) HAND3 OR MORE VIEWS(RIGHT) (RAD Detailed) CPT:28874 Clinical History: Pt with hx of on etanercept. Reports foot swelling also hx of kidney stones Report Status: Verified Date Reported: MAY 10, 2024 Date Verified: MAY 10, 2024 Pewter Caster E-Sig:/ES/ANTONELLA BEARD JR Report: Study: AP, [place], [...] Primary Interpreting Staff: ANTONELLA BEARD JR, Radiologist (Pewter Caster) /ANTONELLA CANO JR [facility] Encounter Notes: All associated encounter notes This section contains the clinical notes associated to the Encounter. Date/Time Encounter Note(s) Provider Source May 14, 2024 11:02 AM TELEHEALTH NOTE: LOCAL TITLE: [place] VIDEO CONNECT PSYCHIATRIST NOTE STANDARD TITLE: TELEHEALTH NOTE DATE OF NOTE: MAY 14, 2024@11:02 ENTRY DATE: MAY 14, 2024@11:03:01 AUTHOR: JENNIFER PALUMBO COSIGNER: URGENCY: STATUS: COMPLETED [facility] Video Connect (VVC) Standard Documentation VVC Clinician Resources Only: E911 (Emergency Call Relay Center): [phone] National Veterans Crisis Line - 988 then press #1. CW Suicide Coordinator [phone], Ext. [phone]; Back-up Ext. [phone] [facility] Police, Kassandra HERNANDEZ [phone] Introduction: Visit is being conducted by [place] Video Connect. identified with 2 identifiers: [X] Full Name [X] Date of [ ] VA ID Card Emergency Plan: confirmed and/or provided the following information in case of emergency or technology failure. PATIENT PHONE - PHONE NUMBER [CELLULAR] - Is patient phone number correct, if not, enter below: Stratham's phone number: JAYLAN ALVAREZ [address], [place], [address] Stratham's present location and address for appointment: same as above Stratham's emergency contact name and phone number: unchanged reported that location is private and safe: Yes Informed Consent: Stratham informed of the risks and benefits of Telehealth video care. has the right to refuse video services. If refuses video visit, a [id number] visit will be scheduled. verbalized consent for this video visit: Yes provided consent for any other persons present for visit: N/A If yes, who and relationship to patient: Secure visit: Visit was locked for security and privacy:Yes CHART REVIEW: seen for initial MH Consult 03/18/23 noting: Stratham is a 42 year old [facility] [employer] [place], [facility] the [facility] to [facility] services and presenting for mental health due to frequent tearfulness. 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 She built a good group of friends who she stayed in touch with for a long time. 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 Is planning to pursue a claim about possible link between her RA and the anthrax vaccine. 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 Works 65 hours/ week INITIAL [...] SYMPTOMS AND CONDITION ON TODAY'S VISIT: reports my emotions are up and [...] If urgent treatment is needed, call [phone] or go to the nearest Emergency Room 2. To schedule or change an appointment, inquire about medication refills, etc: call office number during normal office hours Diagnoses: History of dysthymia ([facility] [id number]) - Dysthymic disorder (ICD-10-CM F34.1) (Primary) Chronic post-traumatic stress disorder (SCT [id number]) - Post-traumatic stress disorder, chronic (ICD-10-CM F43.12) /mateo/ JENNIFER PALUMBO M.D. Signed: 05/14/2024 11:16 JENNIFER PALUMBO
--- OUTSIDE RECORDS SUMMARY | 2024-06-15 10:50 | XMS_ITS | Encounter Summary ---
Author Name Department of [employer] Affairs ([place]) Organization Department of [facility] Affairs ([place]) Address [address] [place] [address] Care Team Providers Care Field Marketing Representative Name Role Phone TRINH FRANCO Primary Care [...] Relationship to Policy Gibson CAREMARK PRESCRIPT ION [facility] Dec 21, 2022 [id number] [phone] Jelani ALVAREZ PATIENT [employer] ([id number]) PRESCRIPT ION [facility] Jun 07, 2022 [id number] Jelani ALVAREZ PATIENT [facility] ORGANIZAT ION [facility] Jun 07, 2022 [id number] Jelani ALVAREZ PATIENT Selected Encounter This section includes the information on record at [place] for the Encounter. Date/Time Encounter Type Encounter Description Reason Provider Source May 13, 2024 09:40 AM Outpatient Encounter RHEUMATOLOGY/ARTHRI TIS LEANDRA RICHARD V IHJunior Encounter Template Text not used by [facility] Plan of Treatment: Future Appointments (+ 6 months) and Future Tests (+/- 45 days) The Plan of Treatment section includes future care activities for the patient from all [place] [facility] This section includes future appointments [...] AMBULATORY - PSYCHIATRY [facility] [place] [facility] May 14, 2024 01:00 PM AMBULATORY - PSYCHIATRY [facility] [place] [facility] May 28, 2024 01:00 PM AMBULATORY - PSYCHIATRY [facility] [place] [facility] Jun 11, 2024 01:30 PM AMBULATORY - PSYCHIATRY [facility] [place] [facility] Jun 11, 2024 02:00 PM AMBULATORY - PSYCHIATRY [facility] [place] [facility] Jun 15, 2024 10:45 AM AMBULATORY - MEDICINE [place] [facility] [place] [facility] Jun 18, 2024 01:00 PM AMBULATORY - PSYCHIATRY [facility] [place] [facility] Jun 25, 2024 01:00 PM AMBULATORY - PSYCHIATRY [facility] [place] [facility] Jul 02, 2024 01:00 PM AMBULATORY - PSYCHIATRY [facility] [place] [facility] Jul 09, 2024 01:00 PM AMBULATORY - PSYCHIATRY [facility] [place] [facility] Jul 16, 2024 01:00 PM AMBULATORY - PSYCHIATRY [facility] [place] [facility] Jul 19, 2024 10:00 AM AMBULATORY - PSYCHIATRY [facility] [place] [facility] Jul 23, 2024 01:00 PM AMBULATORY - PSYCHIATRY [facility] [place] [facility] Aug 19, 2024 02:00 PM AMBULATORY - MEDICINE [place] [facility] [place] [facility] Active, Pending, and Scheduled Orders This section includes a listing of several types of active, pending, and scheduled orders, including clinic medications orders, diagnostic test orders, procedure orders and consult orders; where the start date of the order is 45 days before the date of the Encounter or 45 days after the date of theEncounter. The data comes from all [place] treatment facilities. Test Date/Time Test Type Test Details Facility Name May 10, 2024 03:43 PM Consult Order COMMUNITY CARE-UROLOGY Cons Paver Operator's Choice [facility] Lab Results: +/- 30 days of [...] Range Comment May 10, 2024 08:51 AM [facility] HLA-B27 (QU) Specimen Type: BLOOD Comment: normalcy status - Abnormal Test Performed by [employer], [employer] [facility], [address] [place] [address] Rodger Bender M.D., Ph.D., Director of Laboratories , [facility] [id number] TEST PERFORMED AT: , Ordering Provider: LEANDRA RICHARD V Report Released Date/Time: May 06, 2024 01:47 PM Reporting Lab: [facility] [address] [facility] [address] Performing Lab: [facility] [address] [address] HLA-B27 Positive Negative May 10, 2024 08:51 AM [facility] T-SPOT TB PANEL Specimen Type: BLOOD [...] For additional information, please refer to http://[email or web address] .Radario/faq/ZNU866 (This link is being provided for informational/ educational purposes only.) Test Performed by [employer] [place], [employer] [facility], [address] [place] [address] Rodger Bender M.D., Ph.D., Director of Laboratories , [place] [id number] TEST PERFORMED AT: , Ordering Provider: LEANDRA RICHARD V Report Released Date/Time: May 06, 2024 01:47 PM Reporting Lab: [address] [address] Performing Lab: [facility] [address] [address] L-WMHF-YMPVT T (o) Negative Negative T-SPOT-PNLA 0 T-SPOT-PNLB 2 B-PCQI-YUDNZ RL Passed G-LLZX-MTXOA RL Passed May 10, 2024 08:51 AM [facility] JOSEPH SCREEN/TITER Specimen Type: SERUM No comment entered. Ordering Provider: LEANDRA RICHARD V Report Released Date/Time: May 06, 2024 01:47 PM Reporting Lab: [facility] [address] [facility] [address] Performing Lab: [facility] [address] [facility] [address] JOSEPH SCREEN NEG NEG <1:40 May 10, 2024 08:51 AM [facility] HEPATITIS B CORE (Total) Ab Specimen [...] are not yet detectable. Ordering Provider: LEANDRA RICHARD V Report Released Date/Time: May 06, 2024 01:47 PM Reporting Lab: [facility] [address] [facility] [address] Performing Lab: [facility] [address] HEPATITIS B CORE (Total) Ab Non Reactive Non Reactive May 10, 2024 08:51 AM [facility] HEPATITIS B SURFACE ANTIBODY (HBsAb)-WH Specimen [...] are not yet detectable. Ordering Provider: LEANDRA RICHARD V Report Released Date/Time: May 06, 2024 01:47 PM Reporting Lab: [address] [address] Performing Lab: [address] [address] HBsAb REACTIVE Non Reactive May 10, 2024 08:51 AM [facility] CBC Specimen Type: BLOOD No comment entered. Ordering Provider: LEANDRA RICHARD V Report Released Date/Time: May 06, 2024 01:47 PM Reporting Lab: [address] [address] Performing Lab: [address] [address] WBC 5.62 10*3/uL 4.50-11.00 RBC 3.76 10*6/uL L 3.93-5.16 HGB 12.3 g/dL 12-15.2 HCT 35.8 L 36.6-45.6 MCV 95.2 fL 82-99 MCHC 34.4 g/dL 30.8-35.1 PLT 322 10*3/uL 140-360 RDW-CV 11.8 L 12.0-16.0 MCH 32.7 pg H 26.2-32.6 May 10, 2024 08:51 AM [facility] HEPATITIS C ANTIBODY (HCV)-ARC Specimen Type: SERUM Comment: Hep C Ab: No HCV antibody detected. If recent infection is suspected or other evidence suggests HCV infection, consider HCV nucleic acid testing Ordering Provider: LEANDRA RICHARD V Report Released Date/Time: May 06, 2024 01:47 PM Reporting Lab: [address] [address] Performing Lab: [address] [address] HEPATITIS C ANTIBODY NON-REACTIVE NON-REACTI VE May 10, 2024 08:51 AM [facility] LIVER FUNCTION Specimen Type: SERUM No comment entered. Ordering Provider: LEANDRA RICHARD V Report Released Date/Time: May 06, 2024 01:47 PM Reporting Lab: [address] [address] Performing Lab: [address] [address] PROTEIN,TOTA L 6.3 g/dL 6.0-8.3 ALBUMIN 3.5 g/dL 3.5-5.0 ALKALINE PHOSPHATASE 46 U/L 40-150 AST 14 U/L 5-34 ALT 11 U/L BILIRUBIN, TOTAL 0.4 mg/dL 0.2-1.2 May 10, 2024 08:51 AM [facility] URIC ACID Specimen Type: SERUM No comment entered. Ordering Provider: LEANDRA RICHARD V Report Released Date/Time: May 06, 2024 01:47 PM Reporting Lab: [facility] [address] [facility] [address] Performing Lab: [facility] [address] [facility] [address] URIC ACID 4.4 mg/dL 2.6-6 May 10, 2024 08:51 AM [facility] PO4 Specimen Type: SERUM No comment entered. Ordering Provider: LEANDRA RICHARD V Report Released Date/Time: May 06, 2024 01:47 PM Reporting Lab: [facility] [address] [facility] [address] Performing Lab: [facility] [address] PO4 4.0 mg/dL 2.5-5.0 May 10, 2024 08:51 AM [facility] TSH Specimen Type: SERUM No comment entered. Ordering Provider: LEANDRA RICHARD V Report Released Date/Time: May 06, 2024 01:47 PM Reporting Lab: [facility] [address] [address] Performing Lab: [facility] [address] TSH 1.38 u[IU]/mL 0.35-5.00 May 10, 2024 08:51 AM [facility] BASIC METABOLIC PANEL (non-fasting) Specimen Type: SERUM No comment entered. Ordering Provider: LEANDRA RICHARD V Report Released Date/Time: May 06, 2024 01:47 PM Reporting Lab: [facility] [address] [address] Performing Lab: [facility] [address] [address] UREA NITROGEN 20 mg/dL 7-25 GLUCOSE 83 [...] the Encounter. The data comes from all [place] treatment facilities. Date/Time Radiology Report Provider Source May 10, 2024 10:36 AM HAND 3 OR MORE VIEWS: JAYLAN ALVAREZ [id number] -1980 F Exm Date: MAY 10, 2024@10:36 Req Phys: LEANDRA RICHARD V Pat Loc: CWM/NO/RHEUMATOLOGY B (Req'g L Img Loc: [facility]/BUILDING 1 Service: Unknown Screen: Patient answered no [place] [address] (Case 27 COMPLETE) FOOT 3 OR MORE VIEWS (RIGHT) (RAD Detailed) CPT:25411 Proc Modifiers : RIGHT CPT Modifiers : RT RIGHT SIDE Reason for Study: Evaluate for evid of spondyloarthropathy/erosion (Case 28 COMPLETE) FOOT 3 OR MORE VIEWS(LEFT) (RAD Detailed) CPT:71336 Proc Modifiers : LEFT CPT Modifiers : LT LEFT SIDE Clinical History: Pt with hx of on etanercept. Reports hand swelling Report Status: Verified Date Reported: MAY 10, 2024 Date Verified: MAY 10, 2024 Director Data Management E-Sig:/ES/ANTONELLA BEARD JR Report: Study: Weight-bearing AP, [...] Primary Interpreting Staff: ANTONELLA BEARD JR, Radiologist (Director Data Management) /ANTONELLA CANO JR [facility] May 10, 2024 10:35 AM SPINE LUMBOSACRAL MIN 4 VIEWS: JAYLAN ALVAREZ [id number] -1980 F Exm Date: MAY 10, 2024@10:35 Req Phys: LEANDRA RICHARD V Pat Loc: M/NO/RHEUMATOLOGY B (Req'g L Img Loc: [facility] 1 Service: Unknown Screen: Patient answered no [place] Protection PlusRAT[facility]ITALN [place] [address] (Case 25 COMPLETE) SPINE LUMBOSACRAL MIN 4 VIEWS (RAD Detailed) CPT:60089 Reason for Study: Evaluate for evid of spondyloarthropathy Clinical History: Pt with hx of on etanercept Report Status: Verified Date Reported: MAY 10, 2024 Date Verified: MAY 10, 2024 Director Data Management E-Sig:/ES/ANTONELLA BEARD JR Report: Study: AP, left [...] Primary Interpreting Staff: ANTONELLA BEARD JR, Radiologist (Director Data Management) /ANTONELLA CANO JR [facility] May 10, 2024 10:35 AM SPINE CERVICAL, 4 OR 5 VIEWS: JAYLAN ALVAREZ [id number] -1980 F Exm Date: MAY 10, 2024@10:35 Req Phys: LEANDRA RICHARD V Pat Loc: [facility]/NO/RHEUMATOLOGY B (Req'g L Img Loc: [facility] 1 Service: Unknown Screen: Patient answered no [facility] [place] [address] (Case 26 COMPLETE) SPINE CERVICAL, 4 OR 5 VIEWS (RAD Detailed) CPT:06586 Reason for Study: Evaluate for evid of spondyloarthropathy Clinical History: Pt with hx of on etanercept Report Status: Verified Date Reported: MAY 10, 2024 Date Verified: MAY 10, 2024 Director Data Management E-Sig:/ES/ANTONELLA BEARD JR Report: Study: AP, lateral [...] Primary Interpreting Staff: ANTONELLA BEARD JR, Radiologist (Director Data Management) /ANTONELLA CANO JR [facility] May 10, 2024 10:34 AM FOOT 3 OR MORE VIEWS (RIGHT): JAYLAN ALVAREZ [id number] -1980 F Exm Date: MAY 10, 2024@10:34 Req Phys: LEANDRA RICHARD V Pat Loc: CWM/NO/RHEUMATOLOGY B (Req'g L Img Loc: [facility] 1 Service: Unknown Screen: Patient answered no [facility] [address] (Case 23 COMPLETE) HAND 3 OR MORE VIEWS(LEFT) (RAD Detailed) CPT:72965 Reason for Study: Evaluate for evid of erosion - bilateral exam (Case 24 COMPLETE) HAND3 OR MORE VIEWS(RIGHT) (RAD Detailed) CPT:98788 Clinical History: Pt with hx of on etanercept. Reports foot swelling also hx of kidney stones Report Status: Verified Date Reported: MAY 10, 2024 Date Verified: MAY 10, 2024 Director Data Management E-Sig:/ES/ANTONELLA BEARD JR Report: Study: AP, [place], [...] Primary Interpreting Staff: ANTONELLA BEARD JR, Radiologist (Director Data Management) /ANTONELLA CANO JR [facility] [place] [facility] Encounter Notes: All associated encounter notes This section contains the clinical notes associated to the Encounter. Date/Time Encounter Note(s) Provider Source May 25, 2024 11:16 AM RHEUMATOLOGY [place] E MESSAGING: LOCAL TITLE: RHEUMATOLOGY SECURE MESSAGING STANDARD TITLE: RHEUMATOLOGY SECURE MESSAGING DATE OF NOTE: MAY 25, 2024@11:16 ENTRY DATE: MAY 25, 2024@11:16:56 AUTHOR: KATHY FRANCIS COSIGNER: URGENCY: STATUS: COMPLETED ------Original Message ------- Sent: 05/20/2024 03:17 PM ET From: JAYLAN ALVAREZ To: RHEUMATOLOGY_[facility]@ Subject: General:Follow up with Dr Richard Attachments: [id number].jpg (347.45 KB), [id number].jpg (554.95 KB), [id number].jpg (344.03 KB), [id number].jpg (180.36 KB) Good afternoon, I had a colonoscopy and endoscopy on Friday 05/18. I have attached the report from the initial findings. ------Original Message ------- Sent: 05/21/2024 09:46 AM ET From: LEANDRA RICHARD V To: JAYLAN ALVAREZ Subject: General:Follow up with Dr Richard Thank you so much for sharing. Did they change your medicine based on the findings?? ------Original Message ------- Sent: 05/21/2024 10:43 AM ET From: JAYLAN ALVAREZ To: RHEUMATOLOGY_[facility]@ Subject: General:Follow up with Dr Rihcard No, this was the report back from the surgeon on [facility] portal. I have not met with anyone else yet /mat/ KATHY FRANCIS LPN LICENSED PRACTICAL NURSE Signed: 05/25/2024 11:16 Receipt Acknowledged By: * AWAITING SIGNATURE * LEANDRA RICHARD T[facility]MY [facility] [place] [facility] May 13, 2024 01:55 PM RHEUMATOLOGY SECUR E MESSAGING: LOCAL TITLE: RHEUMATOLOGY SECURE MESSAGING STANDARD TITLE: RHEUMATOLOGY SECURE MESSAGING DATE OF NOTE: MAY 13, 2024@13:55 ENTRY DATE: MAY 13, 2024@13:55:44 AUTHOR: LEANDRA RICHARD V EXP COSIGNER: URGENCY: STATUS: COMPLETED ------Original Message ------- Sent: 05/13/2024 01:47 PM ET From: JAYLAN ALVAREZ To: RHEUMATOLOGY_[facility]@ Subject: General:Follow up with Dr Richard I stopped into the [facility] in [place] on Friday to sign the additional release they needed. The additional records should be sent shortly ------Original Message ------- Sent: 05/13/2024 01:55 PM ET From: LEANDRA RICHARD V To: JAYLAN ALVAREZ Subject: General:Follow up with Dr Richard Thank you. Your tests came back with a neg TB test, neg hep C and Hep B labs consistent with being immunized. I put in the request for the etanercept. /mat/ LEANDRA RICHARD STAFF PHYSICIAN Signed: 05/13/2024 13:55 LEANDRA RICHARD V [facility] [place] May 13, 2024 09:40 AM RHEUMATOLOGY SECUR E MESSAGING: LOCAL TITLE: RHEUMATOLOGY SECURE MESSAGING STANDARD TITLE: RHEUMATOLOGY SECURE MESSAGING DATE OF NOTE: MAY 13, 2024@09:40 ENTRY DATE: MAY 13, 2024@09:40:40 AUTHOR: LEANDRA RICHARD V EXP COSIGNER: URGENCY: STATUS: COMPLETED ------Original Message ------- Sent: 05/10/2024 09:19 AM ET From: JAYLAN ALVAREZ To: RHEUMATOLOGY_[facility]@ Subject: General:Follow up with Dr Richard Attachments: [id number].png (188.31 KB), [id number].png (204.66 KB), [id number].png (217.31 KB), [id number].png (215.21 KB) Good morning, I had an appointment with Dr Pace on 05/06. I am headed [facility] to sign a release of records but she asked me to send screen shots from portal since it may take some time for the information ------Original Message ------- Sent: 05/13/2024 09:40 AM ET From: LEANDRA RICHARD V To: JAYLAN ALVAREZ Subject: General:Follow up with Dr Richard Thank you for sending - I do see the positive quantiferon (TB) that we discussed. Thank you for signing the release. Please have them send the records to us. /mat/ LEANDRA RICHARD STAFF PHYSICIAN Signed: 05/13/2024 09:40 LEANDRA RICHARD V [facility]
--- OUTSIDE RECORDS SUMMARY | 2024-06-15 10:50 | XMS_ITS | Encounter Summary ---
Author Name [facility] [place] [facility] [place] Address [address] [place] [address] Care Team Providers Care Process Pumper Name Role Phone TRINH FRANCO Primary Care [...] Relationship to Policy Gibson CAREMARK PRESCRIPT ION [facility] Dec 21, 2022 [id number] Jelani ALVAREZ PATIENT [facility] ([id number]) PRESCRIPT ION GIC Jun 07, 2022 [id number] Jelani ALVAREZ PATIENT [facility] CE ORGANIZAT ION [facility] Jun 07, 2022 [id number] [phone] Jelani ALVAREZ PATIENT Selected Encounter This section includes the information on record at [place] for the Encounter. Date/Time Encounter Type Encounter Description Reason Provider Source May 28, 2024 01:00 PM PSYTX W PT 45 MINUTES [facility] - IND ICD-10-CM F43.12 Post-traumatic stress disorder, chronic CAMPONOGARA,SA LIYAH IHE Encounter Template Text not used by [place] Assessments - Encounter Diagnoses This section includes the primary and secondary diagnoses documented for the Encounter. Date/Time Primary/Secondary Diagnosis Diagnosis Name Provider Source May 28, 2024 03:18 PM PRIMARY Post-traumatic stress disorder, chronic CAMPBEVERLYA,SA LIYAH [facility] [place] [facility] May 28, 2024 03:18 PM SECONDARY Dysthymic disorder MARYURIA, LIYAH [facility] [place] [facility] Plan of Treatment: Future Appointments (+ 6 months) and Future Tests (+/- 45 days) The Plan of Treatment section includes future care activities for the patient from all [place] [facility] This section includes future appointments [...] AMBULATORY - PSYCHIATRY [facility] [place] [facility] Jun 11, 2024 02:00 PM AMBULATORY - PSYCHIATRY [facility] [place] [facility] Jun 15, 2024 10:45 AM AMBULATORY - MEDICINE [place] C [facility] [place] [facility] Jun 18, 2024 01:00 PM AMBULATORY - PSYCHIATRY [facility] [place] [facility] Jun 25, 2024 01:00 PM AMBULATORY - PSYCHIATRY [facility] [place] [facility] Jul 02, 2024 01:00 PM AMBULATORY - PSYCHIATRY [facility] [place] [facility] Jul 09, 2024 01:00 PM AMBULATORY - PSYCHIATRY [facility] [place] [facility] Jul 16, 2024 01:00 PM AMBULATORY - PSYCHIATRY [facility] [place] [facility] Jul 19, 2024 10:00 AM AMBULATORY - PSYCHIATRY [facility] [place] [facility] Jul 23, 2024 01:00 PM AMBULATORY - PSYCHIATRY [facility] [place] [facility] Aug 19, 2024 02:00 PM AMBULATORY - MEDICINE [place] C [facility] [place] [facility] Active, Pending, and Scheduled Orders This section [...] 03:43 PM Consult Order COMMUNITY CARE-UROLOGY Cons Respiratory Care Faculty's Choice [facility] Lab Results: +/- 30 days [...] Range Comment May 10, 2024 08:51 AM [facility] HLA-B27 (QU) Specimen Type: BLOOD Comment: normalcy status - Abnormal Test Performed by CalendargodGaetano, Sinimanes [facility], [address] [place] [address] Rodger Bender M.D., Ph.D., Director of Laboratories , [facility] [id number] TEST PERFORMED AT: , Ordering Provider: LEANDRA BAEZ V Report Released Date/Time: May 06, 2024 01:47 PM Reporting Lab: [facility] [address] [facility] [address] Performing Lab: [facility] [address] [address] HLA-B27 Positive Negative May 10, 2024 08:51 AM [facility] T-SPOT TB PANEL Specimen Type: [...] For additional information, please refer to [email or web address]/faq/UPJ768 (This link is being provided for informational/ educational purposes only.) Test Performed by Sagoon, Sinimanes [facility], [address] [place] [id number] Rodger Bender M.D., Ph.D., Director of Laboratories , [facility] [id number] TEST PERFORMED AT: , Ordering Provider: LEANDRA BAEZ V Report Released Date/Time: May 06, 2024 01:47 PM Reporting Lab: [facility] [address] [facility] [address] Performing Lab: [facility] [address] [address] G-[id number] T (o) Negative Negative T-SPOT-PNLA 0 T-SPOT-PNLB 2 B-SUGS-YNVUC RL Passed Y-ZVNH-RRIGP RL Passed May 10, 2024 08:51 AM [facility] JOSEPH SCREEN/TITER Specimen Type: SERUM No comment entered. Ordering Provider: LEANDRA BAEZ V Report Released Date/Time: May 06, 2024 01:47 PM Reporting Lab: [facility] [address] [facility] [address] Performing Lab: [facility] [address] [facility] [address] JOSEPH SCREEN NEG NEG <1:40 May 10, 2024 08:51 AM [facility] HEPATITIS B CORE (Total) Ab [...] May 06, 2024 01:47 PM Reporting Lab: [address] [address] Performing Lab: [address] [address] HEPATITIS B CORE (Total) Ab Non Reactive Non Reactive May 10, 2024 08:51 AM [facility] HEPATITIS B SURFACE ANTIBODY (HBsAb)-WH [...] May 06, 2024 01:47 PM Reporting Lab: [address] [address] Performing Lab: [address] [address] HBsAb REACTIVE Non Reactive May 10, 2024 08:51 AM [facility] CBC Specimen Type: BLOOD No comment entered. Ordering Provider: LEANDRA BAEZ V Report Released Date/Time: May 06, 2024 01:47 PM Reporting Lab: [facility] [address] [facility] [address] Performing Lab: [address] [address] WBC 5.62 10*3/uL 4.50-11.00 RBC 3.76 10*6/uL L 3.93-5.16 HGB 12.3 g/dL 12-15.2 HCT 35.8 L 36.6-45.6 MCV 95.2 fL 82-99 MCHC 34.4 g/dL 30.8-35.1 PLT 322 10*3/uL 140-360 RDW-CV 11.8 L 12.0-16.0 MCH 32.7 pg H 26.2-32.6 May 10, 2024 08:51 AM [facility] HEPATITIS C ANTIBODY (HCV)-ARC Specimen Type: SERUM Comment: Hep C Ab: No HCV antibody detected. If recent infection is suspected or other evidence suggests HCV infection, consider HCV nucleic acid testing Ordering Provider: LEANDRA BAEZ V Report Released Date/Time: May 06, 2024 01:47 PM Reporting Lab: [address] [address] Performing Lab: [address] [address] HEPATITIS C ANTIBODY NON-REACTIVE NON-REACTI VE May 10, 2024 08:51 AM [facility] LIVER FUNCTION Specimen Type: SERUM No comment entered. Ordering Provider: LEANDRA BAEZ V Report Released Date/Time: May 06, 2024 01:47 PM Reporting Lab: [address] [address] Performing Lab: [address] [address] PROTEIN,TOTA L 6.3 g/dL 6.0-8.3 ALBUMIN 3.5 g/dL 3.5-5.0 ALKALINE PHOSPHATASE 46 U/L 40-150 AST 14 U/L 5-34 ALT 11 U/L BILIRUBIN, TOTAL 0.4 mg/dL 0.2-1.2 May 10, 2024 08:51 AM [facility] URIC ACID Specimen Type: SERUM No comment entered. Ordering Provider: LEANDRA BAEZ V Report Released Date/Time: May 06, 2024 01:47 PM Reporting Lab: [facility] [address] [facility] [address] Performing Lab: [facility] [address] [facility] [address] URIC ACID 4.4 mg/dL 2.6-6 May 10, 2024 08:51 AM [facility] PO4 Specimen Type: SERUM No comment entered. Ordering Provider: LEANDRA BAEZ V Report Released Date/Time: May 06, 2024 01:47 PM Reporting Lab: [facility] [address] [address] Performing Lab: [facility] [address] [address] PO4 4.0 mg/dL 2.5-5.0 May 10, 2024 08:51 AM [facility] TSH Specimen Type: SERUM No comment entered. Ordering Provider: LEANDRA BAEZ V Report Released Date/Time: May 06, 2024 01:47 PM Reporting Lab: [facility] [address] [address] Performing Lab: [facility] [address] [address] TSH 1.38 u[IU]/mL 0.35-5.00 May 10, 2024 08:51 AM [facility] BASIC METABOLIC PANEL (non-fasting) Specimen Type: SERUM No comment entered. Ordering Provider: LEANDRA BAEZ V Report Released Date/Time: May 06, 2024 01:47 PM Reporting Lab: [facility] [address] [address] Performing Lab: [facility] [address] [address] UREA NITROGEN 20 mg/dL 7-25 GLUCOSE 83 [...] Facil ity May 14, 2024 01:00 PM PR-TOBACCO NEVER U SED CIGARETTES [facility] Tobacco Use History This section includes a history of the smoking, or tobacco-related health factors, that were collected on or before the date of the Encounter. The data comes from the [place] facility where the Encounter took place. Date/Time Smoking Status/Tobacco Use Comment F acility May 14, 2024 01:00 PM PR-TOBACCO NEVER U SED OTHER TYPE [facility] Advance Directives: All historical and [...] HAND 3 OR MORE VIEWS: JAYLAN ALVAREZ [id number] -1980 F Exm Date: MAY 10, 2024@10:36 Req Phys: LEANDRA BAEZ V Pat Loc: CWM/NO/RHEUMATOLOGY B (Req'g L Img Loc: [facility]/BUILDING 1 Service: Unknown Screen: Patient answered no [place] [address] (Case 27 COMPLETE) FOOT 3 OR MORE VIEWS (RIGHT) (RAD Detailed) CPT:49022 Proc Modifiers : RIGHT CPT Modifiers : RT RIGHT SIDE Reason for Study: Evaluate for evid of spondyloarthropathy/erosion (Case 28 COMPLETE) FOOT 3 OR MORE VIEWS(LEFT) (RAD Detailed) CPT:87018 Proc Modifiers : LEFT CPT Modifiers : LT LEFT SIDE Clinical History: Pt with hx of on etanercept. Reports hand swelling Report Status: Verified Date Reported: MAY 10, 2024 Date Verified: MAY 10, 2024 Digital Project Manager E-Sig:/ES/ANTONELLA BEARD JR Report: Study: Weight-bearing AP, [...] Primary Interpreting Staff: ANTONELLA BEARD JR, Radiologist (Digital Project Manager) /ANTONELLA CANO JR [facility] May 10, 2024 10:35 AM SPINE LUMBOSACRAL MIN 4 VIEWS: JAYLAN ALVAREZ [id number] -1980 F Exm Date: MAY 10, 2024@10:35 Req Phys: LEANDRA BAEZ V Pat Loc: CWM/NO/RHEUMATOLOGY B (Req'g L Img Loc: [facility] 1 Service: Unknown Screen: Patient answered no [facility] [place] [address] (Case 25 COMPLETE) SPINE LUMBOSACRAL MIN 4 VIEWS (RAD Detailed) CPT:85077 Reason for Study: Evaluate for evid of spondyloarthropathy Clinical History: Pt with hx of on etanercept Report Status: Verified Date Reported: MAY 10, 2024 Date Verified: MAY 10, 2024 Digital Project Manager E-Sig:/ES/ANTONELLA BEARD JR Report: Study: AP, left [...] Primary Interpreting Staff: ANTONELLA BEARD JR, Radiologist (Digital Project Manager) /EAD ANTONELLA BEARD JR [facility] May 10, 2024 10:35 AM SPINE CERVICAL, 4 OR 5 VIEWS: JAYLAN ALVAREZ [id number] -1980 F Exm Date: MAY 10, 2024@10:35 Req Phys: LEANDRA BAEZ V Pat Loc: M/NO/RHEUMATOLOGY B (Req'g L Img Loc: [facility] 1 Service: Unknown Screen: Patient answered no [facility] [place] [address] (Case 26 COMPLETE) SPINE CERVICAL, 4 OR 5 VIEWS (RAD Detailed) CPT:29400 Reason for Study: Evaluate for evid of spondyloarthropathy Clinical History: Pt with hx of on etanercept Report Status: Verified Date Reported: MAY 10, 2024 Date Verified: MAY 10, 2024 Digital Project Manager E-Sig:/ES/ANTONELLA BEARD JR Report: Study: AP, lateral [...] Primary Interpreting Staff: ANTONELLA BEARD JR, Radiologist (Digital Project Manager) /ANTONELLA CANO JR [facility] May 10, 2024 10:34 AM FOOT 3 OR MORE VIEWS (RIGHT): JAYLAN ALVAREZ [id number] -1980 F Exm Date: MAY 10, 2024@10:34 Req Phys: LEANDRA BAEZ V Pat Loc: M/NO/RHEUMATOLOGY B (Req'g L Img Loc: [facility] 1 Service: Unknown Screen: [place] [address] (Case 23 COMPLETE) HAND 3 OR MORE VIEWS(LEFT) (RAD Detailed) CPT:52476 Reason for Study: Evaluate for evid of erosion - bilateral exam (Case 24 COMPLETE) HAND3 OR MORE VIEWS(RIGHT) (RAD Detailed) CPT:22221 Clinical History: Pt with hx of on etanercept. Reports foot swelling also hx of kidney stones Report Status: Verified Date Reported: MAY 10, 2024 Date Verified: MAY 10, 2024 Digital Project Manager E-Sig:/ES/ANTONELLA BEARD JR Report: Study: AP, [place], [...] Primary Interpreting Staff: ANTONELLA BEARD JR, Radiologist (Digital Project Manager) /ANTONELLA CANO JR [facility] Encounter Notes: All associated encounter [...] appointment. We rescheduled for 06/11 at 2pm [facility]. /mat/ Azalea Rodriguez Psy.D. SEXUAL TRAUMA/WOMEN'S PSYCHOLOGIST Signed: 05/28/2024 15:20 Receipt Acknowledged By: 05/31/2024 14:15 /es/ NO[employer]CH FOUNDER AND CHIEF EXECUTIVE OFFICER AZALEA RODRIGUEZ [facility] May 28, 2024 02:55 PM TELEHEALTH NOTE: LOCAL TITLE: [place] VIDEO CONNECT PSYCHOLOGY NOTE STANDARD TITLE: TELEHEALTH NOTE DATE OF NOTE: MAY 28, 2024@14:55 ENTRY DATE: MAY 28, 2024@14:55:51 AUTHOR: AZALEA RODRIGUEZIGNER: URGENCY: STATUS: COMPLETED [facility] ([facility]VC) Standard Documentation VVC Clinician Resources Only: E911 (Emergency Call Relay Center): [phone] National Veterans Crisis Line - 988 then press #1. [facility] Suicide Coordinator [phone], Ext. [phone]; Back-up Ext. [phone] [place] Police, Kassandra HERNANDEZ [phone] Introduction: Visit is being conducted by [place] [facility]. [place] identified with 2 identifiers: [X] Full Name [X] Date of [ ] VA ID Card Emergency Plan: confirmed and/or provided the following information in case of emergency or technology failure. PATIENT PHONE - PHONE NUMBER [CELLULAR] - Is patient phone number correct, if not, enter below: [place]'s phone number: JAYLAN Epperson [address] [place], [place], [address] [place]'s present location and address for appointment: see chart 's emergency contact name and phone number: see chart reported that location is private and safe: Yes Informed Consent: [place] informed of the risks and benefits of Telehealth video care. [place] has the right to refuse video services. If refuses video visit, a aofn-ch-njot visit will be scheduled. Nash verbalized consent for this video visit: Yes [...] court of law and presented to a gelatin powder mixer), and DOD access for active duty service [...] intent and behavior (attempts and preparatory behavior). is aware of actions to take if he/she feels unsafe including the use of the VCL ([phone]), 911, walk in services, and urgent care/emergency [...] session is scheduled for 06/11 at 2pm [facility]. The plan is to continue [...] one occasion in the past year? Never /mat/ Azalea Rodriguez Psy.D. SEXUAL TRAUMA/WOMEN'S PSYCHOLOGIST Signed: 05/28/2024 15:19 AZALEA RODRIGUEZ CNTRL TRN [facility]
--- OUTSIDE RECORDS SUMMARY | 2024-06-15 10:50 | XMS_ITS ---
Author Name [facility] [place] [facility] [place] Address [address] [place] [address] Care Team Providers Care Electronic Gluer Name Role Phone TRINH FRANCO Primary Care [...] PRESCRIPT ION GIC Dec 21, 2022 [id number] Jelani ALVAREZ PATIENT [employer] ([id number]) PRESCRIPT ION GIC Jun 07, 2022 [id number] Jelani ALVAREZ PATIENT [facility] CE ORGANIZAT ION [facility] Jun 07, 2022 [id number] [id number] Jelani ALVAREZ PATIENT Selected Encounter This section includes the information on record at [place] for the Encounter. Date/Time Encounter Type Encounter Description Reason Provider Source May 14, 2024 01:34 PM QNHP OL DIG ASSMT&MGMT 21+ CLINICAL PHARMACY ICD-10-CM M45.9 Ankylosing spondylitis of unspecified sites in spine [facility] IHE Encounter Template Text not used by [place] Assessments - Encounter Diagnoses This section includes the primary and secondary diagnoses documented for the Encounter. Date/Time Primary/Secondary Diagnosis Diagnosis Name Provider Source May 14, 2024 01:54 PM PRIMARY Ankylosing spondylitis of unspecified sites in spine [facility] [place] [facility] Plan of Treatment: Future Appointments (+ 6 months) and Future Tests (+/- 45 days) The Plan of Treatment section includes future care activities for the patient from all [place] treatmentfacilities. This section includes future appointments and future orders which are active, pending or scheduled. Future Appointments This section includes appointments that were scheduled to occur 6 months from the date of the Encounter, up to a maximum of 20 appointments. The data comes from all [place] treatment facilities. Appointment Date/Time Appointment Type Appointme nt Facility Name May 28, 2024 01:00 PM AMBULATORY - PSYCHIATRY [facility] [place] [facility] Jun 11, 2024 01:30 PM AMBULATORY - PS[facility]CHIATRY [facility] [place] [facility] Jun 11, 2024 02:00 PM AMBULATORY - PSYCHIATRY [facility] [place] [facility] Jun 15, 2024 10:45 AM AMBULATORY - MEDICINE [place] C [place] [facility] Jun 18, 2024 01:00 PM AMBULATORY - PSYCHIATRY [facility] [place] [facility] Jun 25, 2024 01:00 PM AMBULATORY - PSYCHIATRY [facility] [place] [facility] Jul 02, 2024 01:00 PM AMBULATORY - PSYCHIATRY [facility] [place] [facility] Jul 09, 2024 01:00 PM AMBULATORY - PSYCHIATRY [facility] [place] [facility] Jul 16, 2024 01:00 PM AMBULATORY - PSYCHIATRY [facility] [place] [facility] Jul 19, 2024 10:00 AM AMBULATORY - PSYCHIATRY [facility] [place] [facility] Jul 23, 2024 01:00 PM AMBULATORY - PSYCHIATRY [facility] [place] [facility] Aug 19, 2024 02:00 PM AMBULATORY - MEDICINE [place] [place] [facility] Active, Pending, and Scheduled Orders This section includes a listing of several types of active, pending, and scheduled orders, including clinic medications orders, diagnostic test orders, procedure orders and consult orders; where the start date of the order is 45 days before the date of the Encounter or 45 days after the date of theEncounter. The data comes from all [place] treatment facilities. Test Date/Time Test Type Test Details Facility Name May 10, 2024 03:43 PM Consult Order COMMUNITY CARE-UROLOGY Cons [employer] Director's Choice [facility] Lab Results: +/- 30 days of the encounter This section includes the Chemistry and Hematology Lab Results on record with [place] for the patient. Radiology Reports and Pathology Reports are provided separately, in subsequent sections. Lab Results This section contains the Chemistry/Hematology Results that were resulted 30 days before or 30 daysafter the date of the Encounter. Date/Time Source Result Type Result - Unit Interpretation Reference Range Comment May 10, 2024 08:51 AM [facility] HLA-B27 (QU) Specimen Type: BLOOD Comment: normalcy status - Abnormal Test Performed by [employer], [employer] [facility], [address] [place] [address] Rodger Bender M.D., Ph.D., Director of Laboratories , [facility] [id number] TEST PERFORMED AT: , Ordering Provider: LEANDRA BAEZ V Report Released Date/Time: May 06, 2024 01:47 PM Reporting Lab: [facility] [address] [facility] [address] Performing Lab: [facility] [address] [address] HLA-B27 Positive Negative May 10, 2024 08:51 AM [facility] T-SPOT TB PANEL Specimen Type: BLOOD [...] For additional information, please refer to [email or web address]://education .Mikro Odeme | 3pay/faq/NWY031 (This link is being provided for informational/ educational purposes only.) Test Performed by [employer], [employer] [facility], [address] [place] [address] Rodger Bender M.D., Ph.D., Director of Laboratories , [facility] [id number] TEST PERFORMED AT: , Ordering Provider: LEANDRA BAEZ V Report Released Date/Time: May 06, 2024 01:47 PM Reporting Lab: [facility] [employer] [facility] [address] [facility] [address] Performing Lab: [facility] [employer] [facility] [address] [address] [id number] T (o) Negative Negative T-SPOT-PNLA 0 T-SPOT-PNLB 2 N-[id number] RL Passed C-[id number]-[id number] RL Passed May 10, 2024 08:51 AM [facility] JOSEPH SCREEN/TITER Specimen Type: SERUM No comment entered. Ordering Provider: LEANDRA BAEZ V Report Released Date/Time: May 06, 2024 01:47 PM Reporting Lab: [facility] [employer] [facility] [address] [facility] [address] Performing Lab: [facility] [employer] [address] [facility] [address] JOSEPH SCREEN NEG NEG <1:40 May 10, 2024 08:51 AM [facility] HEPATITIS B CORE (Total) Ab Specimen [...] May 06, 2024 01:47 PM Reporting Lab: [address] [address] Performing Lab: [address] [address] HEPATITIS B CORE (Total) Ab Non Reactive Non Reactive May 10, 2024 08:51 AM [facility] HEPATITIS B SURFACE ANTIBODY (HBsAb)-WH Specimen [...] May 06, 2024 01:47 PM Reporting Lab: [address] [address] Performing Lab: [address] [address] HBsAb REACTIVE Non Reactive May 10, 2024 08:51 AM [facility] CBC Specimen Type: BLOOD No comment entered. Ordering Provider: LEANDRA BAEZ V Report Released Date/Time: May 06, 2024 01:47 PM Reporting Lab: [address] [address] Performing Lab: [address] [address] WBC 5.62 10*3/uL 4.50-11.00 RBC 3.76 10*6/uL L 3.93-5.16 HGB 12.3 g/dL 12-15.2 HCT 35.8 L 36.6-45.6 MCV 95.2 fL 82-99 MCHC 34.4 g/dL 30.8-35.1 PLT 322 10*3/uL 140-360 RDW-CV 11.8 L 12.0-16.0 MCH 32.7 pg H 26.2-32.6 May 10, 2024 08:51 AM [facility] HEPATITIS C ANTIBODY (HCV)-ARC Specimen Type: SERUM Comment: Hep C Ab: No HCV antibody detected. If recent infection is suspected or other evidence suggests HCV infection, consider HCV nucleic acid testing Ordering Provider: LEANDRA BAEZ V Report Released Date/Time: May 06, 2024 01:47 PM Reporting Lab: [address] [address] Performing Lab: [address] [address] HEPATITIS C ANTIBODY NON-REACTIVE NON-REACTI VE May 10, 2024 08:51 AM [facility] LIVER FUNCTION Specimen Type: SERUM No comment entered. Ordering Provider: LEANDRA BAEZ V Report Released Date/Time: May 06, 2024 01:47 PM Reporting Lab: [address] [address] Performing Lab: [address] [address] PROTEIN,TOTA L 6.3 g/dL 6.0-8.3 ALBUMIN 3.5 g/dL 3.5-5.0 ALKALINE PHOSPHATASE 46 U/L 40-150 AST 14 U/L 5-34 ALT 11 U/L BILIRUBIN, TOTAL 0.4 mg/dL 0.2-1.2 May 10, 2024 08:51 AM [facility] [place] [facility] URIC ACID Specimen Type: SERUM No comment entered. Ordering Provider: LEANDRA BAEZ V Report Released Date/Time: May 06, 2024 01:47 PM Reporting Lab: [facility] [place] [facility] [address] [facility] [address] Performing Lab: [place] [facility] [address] [facility] [address] URIC ACID 4.4 mg/dL 2.6-6 May 10, 2024 08:51 AM [facility] [place] [facility] PO4 Specimen Type: SERUM No comment entered. Ordering Provider: LEANDRA BAEZ V Report Released Date/Time: May 06, 2024 01:47 PM Reporting Lab: [facility] [address] [facility] [address] Performing Lab: [facility] [address] [address] PO4 4.0 mg/dL 2.5-5.0 May 10, 2024 08:51 AM [facility] TSH Specimen Type: SERUM No comment entered. Ordering Provider: LEANDRA BEAZ V Report Released Date/Time: May 06, 2024 01:47 PM Reporting Lab: [facility] [address] [facility] [address] Performing Lab: [facility] [place] [address] [address] TSH 1.38 u[IU]/mL 0.35-5.00 May 10, 2024 08:51 AM [facility] BASIC METABOLIC PANEL (non-fasting) Specimen Type: SERUM No comment entered. Ordering Provider: LEANDRA BAEZ V Report Released Date/Time: May 06, 2024 01:47 PM Reporting Lab: [facility] [address] [facility] [address] Performing Lab: [facility] [address] [address] UREA NITROGEN 20 mg/dL 7-25 GLUCOSE 83 [...] and tobacco- related health factors from the [place] facility where the Encounter took place. Current Smoking Status This section includes the most current smoking, or tobacco-related health factor, from the [place] facility where the Encounter took place. Date/Time Current Smoking Status Comment Facil ity May 14, 2024 01:00 PM [place]-TOBACCO NEVER U SED CIGARETTES [facility] Tobacco Use History This section includes a history of the smoking, or tobacco-related health factors, that were collected on or before the date of the Encounter. The data comes from the [place] facility where the Encounter took place. Date/Time Smoking Status/Tobacco Use Comment F acility May 14, 2024 01:00 PM VA-TOBACCO NEVER U SED OTHER TYPE [facility] Advance Directives: All historical and current Section Date Range: From patient's date of to the date document was created. This section includes ALL of a patient's completed or amended [place] Advance and Rescinded Directives. The entries below indicate that a directive exists for the patient, but an actual copy is not included with this document. The data comes from all [place] facilities. Date Advance Directives Provider Source Mar [...] the Encounter. The data comes from all [place] treatment facilities. Date/Time Radiology Report Provider Source May 10, 2024 10:36 AM HAND 3 OR MORE VIEWS: JAYLAN ALVAREZ [id number] -1980 F Exm Date: MAY 10, 2024@10:36 Req Phys: LEANDRA BAEZ V Pat Loc: CWM/NO/RHEUMATOLOGY B (Req'g L Img Loc: [facility]/BUILDING 1 Service: Unknown Screen: Patient answered [place] [address] (Case 27 COMPLETE) FOOT 3 OR MORE VIEWS (RIGHT) (RAD Detailed) CPT:26250 Proc Modifiers : RIGHT CPT Modifiers : RT RIGHT SIDE Reason for Study: Evaluate for evid of spondyloarthropathy/erosion (Case 28 COMPLETE) FOOT 3 OR MORE VIEWS(LEFT) (RAD Detailed) CPT:73325 Proc Modifiers : LEFT CPT Modifiers : LT LEFT SIDE Clinical History: Pt with hx of on etanercept. Reports hand swelling Report Status: Verified Date Reported: MAY 10, 2024 Date Verified: MAY 10, 2024 [employer] Technician E-Sig:/ES/ANTONELLA BEARD JR Report: Study: Weight-bearing AP, [...] Primary Interpreting Staff: ANTONELLA BEARD JR, Radiologist ([employer] Technician) /ANTONELLA CANO JR [facility] May 10, 2024 10:35 AM SPINE LUMBOSACRAL MIN 4 VIEWS: JAYLAN ALVAREZ [id number] -1980 F Exm Date: MAY 10, 2024@10:35 Req Phys: LEANDRA BAEZ Loc: CWM/NO/RHEUMATOLOGY B (Req'g L Img Loc: [facility] 1 Service: Unknown Screen: [place] [address] (Case 25 COMPLETE) SPINE LUMBOSACRAL MIN 4 VIEWS (RAD Detailed) CPT:73227 Reason for Study: Evaluate for evid of spondyloarthropathy Clinical History: Pt with hx of on etanercept Report Status: Verified Date Reported: MAY 10, 2024 Date Verified: MAY 10, 2024 [employer] Opt[employer] Technician E-Sig:/ES/ANTONELLA BEARD JR Report: Study: AP, left [...] Primary Interpreting Staff: ANTONELLA BEARD JR, Radiologist ([employer] Technician) /EAD ANTONELLA BEARD JR [facility] May 10, 2024 10:35 AM SPINE CERVICAL, 4 OR 5 VIEWS: JAYLAN ALVAREZ Zhou [id number] -1980 F Exm Date: MAY 10, 2024@10:35 Req Phys: LEANDRA BAEZ V Pat Loc: M/NO/RHEUMATOLOGY B (Req'g L Img Loc: [facility] 1 Service: Unknown Screen: Patient answered no [facility] [place] [address] (Case 26 COMPLETE) SPINE CERVICAL, 4 OR 5 VIEWS (RAD Detailed) CPT:43103 Reason for Study: Evaluate for evid of spondyloarthropathy Clinical History: Pt with hx of on etanercept Report Status: Verified Date Reported: MAY 10, 2024 Date Verified: MAY 10, 2024 Precision Optics Technician E-Sig:/ES/ANTONELLA BEARD JR Report: Study: AP, lateral [...] Primary Interpreting Staff: ANTONELLA BEARD JR, Radiologist ([employer]ision Opt[employer] Technician) /ANTONELLA CANO JR [facility] May 10, 2024 10:34 AM FOOT 3 OR MORE VIEWS (RIGHT): JAYLAN ALVAREZ [id number] -1980 F Exm Date: MAY 10, 2024@10:34 Req Phys: LEANDRA BAEZ V Pat Loc: CWM/NO/RHEUMATOLOGY B (Req'g L Img Loc: [facility] 1 Service: Unknown Screen: [place] [address] (Case 23 COMPLETE) HAND 3 OR MORE VIEWS(LEFT) (RAD Detailed) CPT:30536 Reason for Study: Evaluate for evid of erosion - bilateral exam (Case 24 COMPLETE) HAND3 OR MORE VIEWS(RIGHT) (RAD Detailed) CPT:06046 Clinical History: Pt with hx of on etanercept. Reports foot swelling also hx of kidney stones Report Status: Verified Date Reported: MAY 10, 2024 Date Verified: MAY 10, 2024 Precision Optics Technician E-Sig:/ES/ANTONELLA BEARD JR Report: Study: AP, [place], [...] Primary Interpreting Staff: ANTONELLA BEARD JR, Radiologist ([employer]ision Opt[employer] Technician) /ANTONELLA CANO JR 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
--- OUTSIDE RECORDS SUMMARY | 2024-06-15 10:50 | XMS_ITS | Encounter Summary ---
Author Name [facility] [place] Address [address] [place] [address] Care Team Providers Care Assistance Coordinator Name Role Phone TRINH FRANCO Primary Care [...] Relationship to Policy Gibson [employer] PRESCRIPT ION [facility] Dec 21, 2022 [id number] [phone] Jelani ALVAREZ PATIENT [employer] ([id number]) PRESCRIPT ION GI Jun 07, 2022 [id number] Jelani ALVAREZ PATIENT [facility] ORGANIZAT ION [facility] STATE AGENC Y Jun 07, 2022 [id number] Jelani ALVAREZ PATIENT Selected Encounter This section includes the information on record at [place] for the Encounter. Date/Time Encounter Type Encounter Description Reason Pro vider Source Jan 22, 2024 12:00 AM Outpatient Encounter COMMUNITY CARE CONSULT IHE Encounter Template Text not used by [place] Plan of Treatment: Future Appointments (+ 6 months) and Future Tests (+/- 45 days) The Plan of Treatment section includes future care activities for the patient from all [place] [facility]. This section includes future appointments and future orders which are active, pending or scheduled. Future Appointments This section includes appointments that were scheduled to occur 6 months from the date of the Encounter, up to a maximum of 20 appointments. The data comes from all [place] treatment facilities. Appointment Date/Time Appointment Type Appointme nt Facility Name Jan 28, 2024 09:00 AM AMBULATORY - MEDICINE [place] [facility] Feb 25, 2024 09:30 AM AMBULATORY - REHAB [facility] Feb 27, 2024 01:30 PM AMBULATORY - PSYCHIATRY [facility] [place] [facility] Mar 09, 2024 08:45 AM AMBULATORY - MEDICINE [place] [facility] [place] [place] [facility] Apr 16, 2024 11:00 AM AMBULATORY - PSYCHIATRY [facility] [place] [facility] May 06, 2024 01:00 PM AMBULATORY - MEDICINE [facility] [place] [facility] May 14, 2024 11:00 AM AMBULATORY - PSYCHIATRY [facility] [place] [facility] May 14, 2024 01:00 PM AMBULATORY - PSYCHIATRY [facility] [place] [facility] May 28, 2024 01:00 PM AMBULATORY - PSYCHIATRY [facility] [place] [facility] Jun 11, 2024 01:30 PM AMBULATORY - PSYCHIATRY [facility] [place] [facility] Jun 11, 2024 02:00 PM AMBULATORY - PSYCHIATRY [facility] [place] [facility] Jun 15, 2024 10:45 AM AMBULATORY - MEDICINE [facility] [place] [place] [facility] Jun 18, 2024 01:00 PM AMBULATORY - PSYCHIATRY [facility] [place] [facility] Jun 25, 2024 01:00 PM AMBULATORY - PSYCHIATRY [facility] [place] [facility] Jul 02, 2024 01:00 PM AMBULATORY - PSYCHIATRY [facility] [place] [facility] Jul 09, 2024 01:00 PM AMBULATORY - PSYCHIATRY [facility] [place] [facility] Jul 16, 2024 01:00 PM AMBULATORY - PSYCHIATRY [facility] [place] [facility] Jul 19, 2024 10:00 AM AMBULATORY - PSYCHIATRY [facility] [facility] Jul 23, 2024 01:00 PM AMBULATORY - PSYCHIATRY [facility] Lab Results: +/- 30 days of the encounter This section includes the Chemistry and Hematology Lab Results on record with [place] for the patient. Radiology Reports and Pathology Reports are provided separately, in subsequent sections. Lab Results This section contains the Chemistry/Hematology Results that were resulted 30 days before or 30 daysafter the date of the Encounter. Date/Time Source Result Type Result - Unit Interpretation Reference Range Comment Jan 12, 2024 03:32 PM [facility] BASIC METABOLIC PANEL (non-fasting) Specimen Type: SERUM No comment entered. Ordering Provider: TRINH FRANCO Report Released Date/Time: Jan 12, 2024 03:18 PM Reporting Lab: [address] [address] Performing Lab: [address] [address] UREA NITROGEN 18 mg/dL 7-25 GLUCOSE 108 mg/dL H 65-100 SODIUM 136 mmol/L 135-145 POTASSIUM 4.4 mmol/L 3.5-5.0 CHLORIDE 103 mmol/L 100-110 CO2 27 meq/L 20-30 CREATININE, Serum 0.90 mg/dL 0.50-1.40 eGFR(CKD-EPI 2020) 81 mL/min >60 Jan 12, 2024 03:32 PM [facility] LIPID PANEL FASTING Specimen Type: SERUM No comment entered. Ordering Provider: TRINH FRANCO Report Released Date/Time: Jan 12, 2024 03:18 PM Reporting Lab: [address] [address] Performing Lab: [address] [address] CHOLESTEROL 200 mg/dL H TRIGLYCERIDE 64 mg/dL 0-150 LDL calculated 127 mg/dL 0-129 CHOL/HDL 3.3 HDL CHOLESTEROL 60 mg/dL 40-60 Jan 12, 2024 03:32 PM [facility] LIVER FUNCTION Specimen Type: SERUM No comment entered. Ordering Provider: TRINH FRANCO Report Released Date/Time: Jan 12, 2024 03:18 PM Reporting Lab: [facility] [address] [facility] [address] Performing Lab: [address] [address] PROTEIN,TOTAL 7.2 g/dL 6.0-8.3 ALBUMIN 3.8 g/dL 3.5-5.0 ALKALINE PHOSPHATASE 49 U/L 40-150 AST 15 U/L 5-34 ALT 18 U/L BILIRUBIN, TOTAL 0.8 mg/dL 0.2-1.2 Jan 12, 2024 03:32 PM [facility] CBC AND DIFF (AUTO) Specimen Type: BLOOD No comment entered. Ordering Provider: TRINH FRANCO Report Released Date/Time: Jan 12, 2024 03:18 PM Reporting Lab: [address] [address] Performing Lab: [address] [address] WBC 7.29 10*3/uL 4.50-11.00 RBC 3.82 10*6/uL [...] 10*3/uL 0.00-0.00 Jan 12, 2024 03:32 PM [facility] HEMOGLOBIN A1C PANEL Specimen Type: BLOOD [...] Jan 12, 2024 03:18 PM Reporting Lab: [facility] [address] [facility] [address] Performing Lab: [address] [address] HEMOGLOBIN A1C 4.6 4.0-5.6 Jan 12, 2024 03:32 PM [facility] TSH Specimen Type: SERUM No comment entered. Ordering Provider: TRINH FRANCO Report Released Date/Time: Jan 12, 2024 03:18 PM Reporting Lab: [facility] [address] [facility] [address] Performing Lab: [address] [address] TSH 1.67 u[IU]/mL 0.35-5.00 Advance Directives: All [...] this document. The data comes from all [place] facilities. Date Advance Directives Provider Source Mar 25, 2023 ADVANCE DIRECTIVE PETROS MOTLEY [facility] Encounter Notes: All associated encounter notes This section contains the clinical notes associated to the Encounter. Date/Time Encounter Note(s) Provider Source Jan 22, 2024 12:00 AM NONVA CONSULT: LOCAL TITLE: COMMUNITY CARE-CONSULT RESULT NOTE STANDARD TITLE: NONVA CONSULT DATE OF NOTE: JAN 22, 2024 ENTRY DATE: APR 22, 2024@15:06:08 AUTHOR: DAVID CABRERA EXP COSIGNER: URGENCY: STATUS: COMPLETED VistA Imaging - Scanned Document SCANNED DOCUMENT SIGNATURE NOT REQUIRED Electronically Filed: 04/22/2024 by: DAVID LLOYD CNTRL WSTRN [facility]
--- OUTSIDE RECORDS SUMMARY | 2024-06-15 10:51 | XMS_ITS ---
Author Name Department of Vetera Affairs ([place]) Organization Department of [facility] ([place]) Address [address] [place] [address] Care Team Providers Care Division Sales Manager Name Role Phone TRINH FRANCO Primary Care [...] to Policy Gibson CAREMARK PRESCRIPT ION [facility] Dec 21, 2022 [id number] Jelani ALVAREZ PATIENT [employer] SCRIP[employer] ([id number]) PRESCRIPT ION [facility] Jun 07, 2022 [id number] Jelani ALVAREZ PATIENT [facility] CE ORGANIZAT ION [facility] Jun 07, 2022 [id number] Jelani ALVAREZ PATIENT Selected Encounter This section includes the information on record at [place] for the Encounter. Date/Time Encounter Type Encounter Description Reason Provider Source Jun 11, 2024 02:44 PM Outpatient Encounter MENTAL HEALTH [facility] PALMER RODRIGUEZ Encounter Template Text not used by [place] Plan of Treatment: Future Appointments (+ 6 months) and Future Tests (+/- 45 days) The Plan of Treatment section includes future care activities for the patient from all [place] [facility]. This section includes future appointments and future orders which are active, pending or scheduled. Future Appointments This section includes appointments that were scheduled to occur 6 months from the date of the Encounter, up to a maximum of 20 appointments. The data comes from all [facility]. Appointment Date/Time Appointment Type Appointme nt Facility Name Jun 15, 2024 10:45 AM AMBULATORY - MEDICINE [place] C [facility] [place] [facility] Jun 18, 2024 01:00 PM AMBULATORY PSYCHIATRY NM [facility] [place] [facility] Jun 25, 2024 01:00 PM AMBULATORY PSYCHIATRY NM [facility] [place] [facility] Jul 02, 2024 01:00 PM AMBULATORY PSYCHIATRY NM [facility] [place] [facility] Jul 09, 2024 01:00 PM AMBULATORY PSYCHIATRY NM [facility] [place] [facility] Jul 16, 2024 01:00 PM AMBULATORY PSYCHIATRY NM [facility] [place] [facility] Jul 19, 2024 10:00 AM AMBULATORY - PSYCHIATRY NM [facility] [place] [facility] Jul 23, 2024 01:00 PM AMBULATORY PSYCHIATRY NM [facility] [place] [facility] Aug 19, 2024 02:00 PM AMBULATORY - MEDICINE NM C [facility] [place] [facility] Active, Pending, and Scheduled Orders This section includes a listing of several types of active, pending, and scheduled orders, including clinic medications orders, diagnostic test orders, procedure orders and consult orders; where the start date of the order is 45 days before the date of the Encounter or 45 days after the date of theEncounter. The data comes from all [facility]. Test Date/Time Test Type Test Details Facility Name May 10, 2024 03:43 PM Consult Order COMMUNITY CARE-UROLOGY Cons Mig Tig [facility] [place] [facility] Social History: Smoking Status (Most current) [...] Facil ity May 14, 2024 01:00 PM VA-TOBACCO NEVER U SED CIGARETTES [facility] Tobacco Use History This section includes a history of the smoking, or tobacco-related health factors, that were collected on or before the date of the Encounter. The data comes from the [place] facility where the Encounter took place. Date/Time Smoking Status/Tobacco Use Comment F acility May 14, 2024 01:00 PM VA-TOBACCO NEVER U SED OTHER TYPE [facility] [...] Mar 25, 2023 ADVANCE DIRECTIVE PETROS MOTLEY [facility] Encounter Notes: All associated encounter notes This section contains the clinical notes associated to the Encounter. Date/Time Encounter Note(s) Provider Source Jun 11, 2024 02:44 PM MENTAL HEALTH DIAGNOSTIC STUDY NOTE: LOCAL TITLE: MENTAL HEALTH DIAGNOSTIC STUDY STANDARD TITLE: MENTAL HEALTH DIAGNOSTIC STUDY NOTE DATE OF NOTE: JUN 11, 2024@14:44:55 ENTRY DATE: JUN 11, 2024@14:44:55 AUTHOR: ROBERT RODRIGUEZ EXP COSIGNER: URGENCY: STATUS: COMPLETED PCL-5 Date Given: 06/11/2024 Clinician: Robert Rodriguez Location: [facility] [place]: Jaylan Alvarze SSN: [id number] : [birth year]) Gender: Female PCL-5 Score: 39 This measure assesses an individual's perception of the distress associated with possible PTSD symptoms. It is not used to diagnose PTSD. Symptoms are rated from 0-4 in terms of distress they cause the individual. Scores that are greater than or equal to 31-33 suggest that the may meet the criteria for a PTSD diagnosis. However, it is important to use caution when using this cutoff since it is possible for some Veterans with scores lower than 31-33 to meet criteria for PTSD. Additional testing using a structured diagnostic interview, such as the Clinician Administered PTSD Scale for DSM-5, is recommended to confirm diagnostic status. Values range from 0 to 80 with higher scores indicating more probable PTSD. Questions and Answers: 1. Repeated, disturbing, and unwanted memories of the stressful experience? Quite a bit 2. Repeated, disturbing dreams of the stressful experience? Moderately 3. Suddenly feeling or acting as if the stressful experience were actually happening again (as if you were actually back there reliving it)? Not at all 4. Feeling very upset when something reminded you of the stressful experience? Quite a bit 5. Having strong physical reactions when something reminded you of the stressful experience (for example, heart pounding, trouble breathing, sweating)? Moderately 6. Avoiding memories, thoughts, or feelings related to the stressful experience? Moderately 7. Avoiding external reminders of the stressful experience (for example, people, places, conversations, activities, objects, or situations)? Quite a bit 8. Trouble remembering important parts of the stressful experience? Quite a bit 9. Having strong negative beliefs about yourself, other people, or the world (for example, having thoughts such as: I am bad, there is something seriously wrong with me, no one can be trusted, the world is completely dangerous)? Quite a bit 10. Blaming yourself or someone else for the stressful experience or what happened after it? Not at all 11. Having strong negative feelings such as fear, horror, anger, guilt, or shame? Moderately 12. Loss of interest in activities that you used to enjoy? Extremely 13. Feeling distant or cut off from other people? Quite a bit 14. Trouble experiencing positive feelings (for example, being unable to feel happiness or have loving feelings for people close to you)? A little bit 15. Irritable behavior, angry outbursts, or acting aggressively? Not at all 16. Taking too many risks or doing things that could cause you harm? Not at all 17. Being superalert or watchful or on guard? Quite a bit 18. Feeling jumpy or easily startled? Quite a bit 19. Having difficulty concentrating? Moderately 20. Trouble falling or staying asleep? Not at all Information contained in this note is based on a self-report assessment and is not sufficient to use alone for diagnostic purposes. Assessment results should be verified for accuracy and used in conjunction with other diagnostic activities and procedures. /mat/ Robert Rodriguez Psy.D. SEXUAL TRAUMA/WOMEN'S PSYCHOLOGIST Signed: 06/11/2024 15:13 ROBERT RODRIGUEZ CNTRL [facility]
--- OUTSIDE RECORDS SUMMARY | 2024-06-15 10:51 | XMS_ITS | Encounter Summary ---
Author Name Department of [place] Organization [facility] [place] Address [address] [place] [address] Care Team Providers Care Planograph Operator Name Role Phone TRINH FRANCO Primary [...] [facility] Dec 21, 2022 [id number] Jelani ALVAREZ PATIENT [employer] ([id number]) PRESCRIPT ION [facility] Jun 07, 2022 [id number] [phone] Jelani ALVAREZ PATIENT [facility] CE ORGANIZAT ION [facility] Jun 07, 2022 [id number] [phone] Jelani ALVAREZ PATIENT Selected Encounter This section includes the information on record at [place] for the Encounter. Date/Time Encounter Type Encounter Description Reason Provider Source Jun 11, 2024 02:00 PM PSYTX W PT 45 MINUTES MENTAL HEALTH CLINIC - IND ICD-10-CM F43.12 Post-traumatic stress disorder, chronic CAMPONOGARA,SA LIYAH IHE Encounter Template Text not used by [place] Assessments - Encounter Diagnoses This section includes the primary and secondary diagnoses documented for the Encounter. Date/Time Primary/Secondary Diagnosis Diagnosis Name Provider Source Jun 11, 2024 04:04 PM PRIMARY Post-traumatic stress disorder, chronic CAMPONOGARA,SA LIYAH [place] [facility] [place] [facility] Jun 11, 2024 04:04 PM SECONDARY Major depressive disorder, recurrent, moderate CAMPONOGARA,SA LIYAH [place] [facility] [place] [facility] Plan of Treatment: Future Appointments (+ 6 months) and Future Tests (+/- 45 days) The Plan of Treatment section includes future care activities for the patient from all [place] [facility] This section includes future appointments and future [...] - MEDICINE [place] C [facility] [place] [place] [facility] Jun 18, 2024 01:00 PM AMBULATORY - PSYCHIATRY NM [facility] [place] [place] [facility] Jun 25, 2024 01:00 PM AMBULATORY - PSYCHIATRY NM [facility] [place] [facility] Jul 02, 2024 01:00 PM AMBULATORY - PSYCHIATRY NM [facility] [place] [facility] Jul 09, 2024 01:00 PM AMBULATORY - PSYCHIATRY NM [facility] [place] [facility] Jul 16, 2024 01:00 PM AMBULATORY - PSYCHIATRY NM [facility] [place] [facility] Jul 19, 2024 10:00 AM AMBULATORY - PSYCHIATRY NM [facility] [place] [facility] Jul 23, 2024 01:00 PM AMBULATORY - PSYCHIATRY NM [facility] [place] [facility] Aug 19, 2024 02:00 PM AMBULATORY - MEDICINE NM C [facility]TR[facility] [place] [facility] Active, Pending, and Scheduled Orders This section includes a listing of several types of active, pending, and scheduled orders, including clinic medications orders, diagnostic test orders, procedure orders and consult orders; where the start date of the order is 45 days before the date of the Encounter or 45 days after the date of theEncounter. The data comes from all [place] treatment facilities. Test Date/Time Test Type Test Details Facility Name May 10, 2024 03:43 PM Consult Order COMMUNITY CARE-UROLOGY Cons Transverse Abdominal Muscle Surgeon's Choice [facility] Social History: Smoking Status (Most current) [...] Facil ity May 14, 2024 01:00 PM NM-TOBACCO NEVER U SED CIGARETTES [facility] Tobacco Use History This section includes a history of the smoking, or tobacco-related health factors, that were collected on or before the date of the Encounter. The data comes from the [place] facility where the Encounter took place. Date/Time Smoking Status/Tobacco Use Comment F acility May 14, 2024 01:00 PM NM-TOBACCO NEVER U SED OTHER TYPE [facility] Advance Directives: All historical and current [...] Mar 25, [address] [facility] Encounter Notes: All associated encounter notes This section contains the clinical notes associated to the Encounter. Date/Time Encounter Note(s) Provider Source Jun 11, 2024 01:46 PM TELEHEALTH NOTE: LOCAL TITLE: VA VIDEO CONNECT PSYCHOLOGY NOTE STANDARD TITLE: TELEHEALTH NOTE DATE OF NOTE: JUN 11, 2024@13:46 ENTRY DATE: JUN 11, 2024@13:46:07 AUTHOR: ROBERT RODRIGUEZ COSIGNER: URGENCY: STATUS: COMPLETED VA Video Connect (VVC) Standard Documentation VVC Clinician Resources Only: E911 (Emergency Call Relay Center): [phone] National Veterans Crisis Line - 988 then press #1. [place] Suicide Coordinator [phone], Ext. [phone]; Back-up Ext. [phone] [place] Police, Kassandra HERNANDEZ [phone] Introduction: Visit is being conducted by [place] Video Connect. identified with 2 identifiers: [X] Full Name [X] Date of [ ] VA ID Card Emergency Plan: [place] confirmed and/or provided the following information in case of emergency or technology failure. PATIENT PHONE - PHONE NUMBER [CELLULAR] - Is patient phone number correct, if not, enter below: Dos Rios's phone number: JAYLAN ALVAREZ [address], [place], [address] D[place] Rios's present location and address for appointment: see chart 's emergency contact name and phone number: see chart reported that location is private and safe: Yes Informed Consent: [place] informed of the risks and benefits of Telehealth video care. [place] has the right to refuse video services. If refuses video visit, a [id number] visit will be scheduled. verbalized consent for this video visit: Yes Dos [place]ios provided consent for any other persons present [...] court of law and presented to a tower erector helper), and DOD access for active duty service members. Provided Suicide Prevention Hotline number, and other contact numbers as necessary. [place] identified with 2 identifiers: [X] Patient Name [X] Visual recognition SESSION: 3 VISIT DURATION: 50 min DSM5 DIAGNOSES: PTSD; Major Depressive Disorder, Moderate, Recurrent RISK ASSESSMENT: Dos [place]ios endorsed passive suicidal ideation (i.e,. If something happened to me, I wouldn't mind My kids would be okay if I was gone Nothing matters ) but denied thoughts of killing or harming herself. She denied a history of suicidal intent and behavior (attempts and preparatory behavior). Nash is aware of actions to take if he/she feels unsafe including the use of the VCL ([phone]), 911, walk in services, and urgent care/emergency [...] prior to each session and reviewed weekly. Floating Derrick Operator reviewed with Nash the use of Behavioral [...] close to someone, she will lose them. Nash reported that her belief that she is [...] and produces feelings of shame. In addition, Dos [place]ios accepted information about online educational resources about PTSD and depression treatment options including https://www.ptsd.va.gov/a pps/decisionaid/ and https://www.ptsd.va.gov/a pps/AboutFace/. The plan is to engage in shared decision making and collaborative treatment planning in the next session. NEXT STEPS: Our next session is scheduled for 06/18 at 1pm [facility]. The plan is to engage in shared decision making regarding treatment plan. /mat/ Robert Rodriguez Psy.D. SEXUAL TRAUMA/WOMEN'S PSYCHOLOGIST Signed: 06/11/2024 16:08 ROBERT RODRIGUEZ CNTRL WSTRN [facility]
--- OUTSIDE RECORDS SUMMARY | 2024-06-15 10:51 | XMS_ITS | Encounter Summary ---
Author Name Department [place] Organization [place] Address [address] [place] [address] Care Team Providers Care Rubber Cutter And Shape Carver Name Role Phone TRINH FRANCO Primary Care [...] Relationship to Policy Gibson CAREMARK PRESCRIPT ION [facility] Dec 21, 2022 [id number] Jelani ALVAREZ PATIENT [employer] SCRIPTS ([id number]) PRESCRIPT ION [facility] Jun 07, 2022 [id number] Jelani ALVAREZ PATIENT [facility] CE ORGANIZAT ION [facility] Jun 07, 2022 [id number] [phone] [id number] [phone] Jelani ALVAREZ PATIENT Selected Encounter This section includes the information on record at [place] for the Encounter. Date/Time Encounter Type Encounter Description Reason Provider Source Jun 11, 2024 01:30 PM OFFICE O/P EST LOW 20 MIN MENTAL HEALTH CLINIC - IND ICD-10-CM F34.1 Dysthymic disorder JENNIFER PALUMBO IHE Encounter Template Text not used by [place] Assessments - Encounter Diagnoses This section includes the primary and secondary diagnoses documented for the Encounter. Date/Time Primary/Secondary Diagnosis Diagnosis Name Provider Source Jun 11, 2024 01:46 PM PRIMARY Dysthymic disorder JENNIFER PALUMBO Plan of Treatment: Future Appointments (+ 6 months) and Future Tests (+/- 45 days) The Plan of Treatment section includes future care activities for the patient from all [place] [facility]. This section includes future appointments and future orders which are active, pending or scheduled. Future Appointments This section includes appointments that were scheduled to occur 6 months from the date of the Encounter, up to a maximum of 20 appointments. The data comes from all [place] treatment [facility]. Appointment Date/Time Appointment Type Appointme nt Facility Name Jun 15, 2024 10:45 AM AMBULATORY - MEDICINE [place] [facility] [place] [facility] Jun 18, 2024 01:00 PM AMBULATORY - PSYCHIATRY [place] [facility] [place] [facility] Jun 25, 2024 01:00 PM AMBULATORY - PSYCHIATRY [place] [facility] [place] [facility] Jul 02, 2024 01:00 PM AMBULATORY - PSYCHIATRY [place] [facility] [place] [facility] Jul 09, 2024 01:00 PM AMBULATORY - PSYCHIATRY [place] [facility] [place] [facility] Jul 16, 2024 01:00 PM AMBULATORY - PSYCHIATRY [place] [facility] [place] [facility] Jul 19, 2024 10:00 AM AMBULATORY - PSYCHIATRY [place] [facility] [place] [facility] Jul 23, 2024 01:00 PM AMBULATORY - PSYCHIATRY [place] [facility] [place] [facility] Aug 19, 2024 02:00 PM AMBULATORY - MEDICINE [place] C [facility] [place] [facility] Active, Pending, and Scheduled Orders This section includes a listing of several types of active, pending, and scheduled orders, including clinic medications orders, diagnostic test orders, procedure orders and consult orders; where the start date of the order is 45 days before the date of the Encounter or 45 days after the date of theEncounter. The data comes from all [facility]. Test Date/Time Test Type Test Details Facility Name May 10, 2024 03:43 PM Consult Order COMMUNITY CARE-UROLOGY Cons Personal Lines Insurance Advisor's Choice [place] [facility] [facility] Social History: Smoking Status (Most current) and Tobacco Use (All prior to encounter date) This section includes the most current, and the historical, smoking and tobacco- related health factors from the [place] facility where the Encounter took place. Current Smoking Status This section includes the most current smoking, or tobacco-related health factor, from the [place] facility where the Encounter took place. Date/Time Current Smoking Status Comment Claudia tello Mar 18, 2023 09:00 AM VA-TOBACCO NEVER USED [place] Advance Directives: All historical and current Section Date Range: From patient's date of to the date document was created. This section includes ALL of a patient's completed or amended VA Advance and Rescinded Directives. The entries below indicate that a directive exists for the patient, but an actual copy is not included with this document. The data comes from all [place] facilities. Date Advance Directives Provider Source Mar 25, 2023 ADVANCE DIRECTIVE PETROS MOTLEY [facility] Encounter Notes: All associated encounter notes This section contains the clinical notes associated to the Encounter. Date/Time Encounter Note(s) Provider Source Jun 11, 2024 01:30 PM TELEHEALTH NOTE: LOCAL TITLE: [place] VIDEO CONNECT PSYCHIATRIST NOTE STANDARD TITLE: TELEHEALTH NOTE DATE OF NOTE: JUN 11, 2024@13:30 ENTRY DATE: JUN 11, 2024@13:31:41 AUTHOR: JENNIFER PALUMBO COSIGNER: URGENCY: STATUS: COMPLETED VA Video Connect (VVC) Standard Documentation VVC Clinician Resources Only: E911 (Emergency Call Relay Center): [phone] National Veterans Crisis Line - 988 then press #1. [facility] Suicide Coordinator [phone], Ext. [phone]; Back-up Ext. [phone] [place] Police, Kassandra HERNANDEZ [phone] Introduction: Visit is being conducted by [place] A[facility] - Financial Reconciliation Connect. [place] identified with 2 identifiers: [X] Full Name [X] Date of [ ] VA ID Card Emergency Plan: confirmed and/or provided the following information in case of emergency or technology failure. PATIENT PHONE - PHONE NUMBER [CELLULAR] - Is patient phone number correct, if not, enter below: 's phone number: JAYLAN ALVAREZ [address], [place], [address] Rumford's present location and address for appointment: same as above 's emergency contact name and phone number: unchanged reported that location is private and safe: Yes Informed Consent: informed of the risks and benefits of Telehealth video care. has the right to refuse video services. If refuses video visit, a [id number] visit will be scheduled. [place]ford verbalized consent for this video visit: Yes Rumford provided consent for any other persons present for visit: N/A If yes, who and relationship to patient: Secure visit: Visit was locked for security and privacy:Yes CHART REVIEW: seen for initial MH Consult 03/18/23 noting: Nash is a 42 year old [facility] [employer] [place], [facility] the [facility] to [facility] services and presenting for mental health due to frequent tearfulness. 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 [employer]. She built a good group of friends who she stayed in touch with for a long time. 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 She was working in [employer] affairs in [employer] [facility], in Jul 2002 and saw a lot of bodies as a result of that and friends that didn't come home. Is planning to pursue a claim about possible link between her RA and the anthrax vaccine. 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 Works 65 hours/ week [...] different agent. NOTED AT LAST OP VISIT: Rumford reports my emotions are up and down. [...] PRESENTING SYMPTOMS AND CONDITION ON TODAY'S VISIT: Rumford reports I've been good. Meeting with the [...] Reinforced: If urgent treatment is needed, call [phone] or go to the nearest Emergency Room 2. To schedule or change an appointment, inquire about medication refills, etc: call office number during normal office hours Diagnoses: History of dysthymia (SCT [id number]) - Dysthymic disorder (ICD-10-CM F34.1) (Primary) Chronic post-traumatic stress disorder (SCT [id number]) - Post-traumatic stress disorder, chronic (ICD-10-CM F43.12) /mat/ JENNIFER PALUMBO M.D. Signed: 06/11/2024 13:46 JENNIFER PALUMBO
== END 2024-06-15 11:37 | disposition home or self-care (01) ==
PROVIDERS: PCP Internal Medicine; Visit Provider Urology
DX: N39.0 Urinary tract infection, site not specified (principal); D84.821 Immunodeficiency due to drugs; Z79.899 Other long term (current) drug therapy
CPT/HCPCS: 99214

== ENCOUNTER → 2024-06-15 10:46 | Outpatient (BNVA) | payer OTHER, SELFPAY | PROVIDERS: PCP Internal Medicine; Visit Provider Urology ==

== ENCOUNTER 2024-06-30 14:45 | Outpatient (AMB) | payer OTHER, SELFPAY ==
[2024-06-30 14:48] VITALS: BP 120/87; BMI 27.7
--- NOTE | 2024-06-30 14:48 | A.OFFVIS_ITS ---
Vital Signs 06/30/24 14:48 Height 5 ft 1 in Weight 146 lb 13.246 oz BMI 27.7 BP 120/87 Blood Pressure Location Lt brachial Position Sitting Intake Visit Reasons: S/p colon Intake Note: Erendira present in follow up s/p EGD and colonoscopy. CC: Patient c/o a lot of nausea, she states that she feels that everytime she twist in different directions she gets nausea. Denies other GI symptoms today. Home Care Manager Rn Required: No Accompanied by: Self / Same As Patient Allergies cat dander Allergy (Mild, Verified 06/30/24 14:54) Unknown dog dander Allergy (Mild, Verified 06/30/24 14:54) Unknown Seasonal Allergies Allergy (Mild, Verified 06/30/24 14:54) Unknown No Known Drug Allergies Allergy (Unknown, Verified 06/30/24 14:54) none HPI HPI S/p colon: Details: Assessment & Plan (1) GERD without esophagitis: Code(s): K21.9 - Gastro-esophageal reflux disease without esophagitis Category: Medical (2) Blood in stool: Code(s): K92.1 - Melena Category: Medical (3) Nausea vomiting and diarrhea: Code(s): R11.2 - Nausea with vomiting, unspecified; R19.7 - Diarrhea, unspecified Category: Medical Plan The creon did help her gas, but she was sick for 2 days out of the blue with nausea vomiting and diarrhea. Then it just seemed to mysteriously Vanish. During this time she saw her new primary care provider at the [facility] and they did lab work which at least did not show any elevated white counts. She continues with her allergy testing and she does have some environmental allergies including trees but they have not yet proceeded to the food allergy testing. This will be interesting. Her fecal calprotectin is borderline elevated. I am uncertain if this is affected much by her Enbrel usually it would not be. This could be a harbinger of inflammatory bowel disease but also can cover other sources of inflammation including food allergies viral infections etc.. I think the colonoscopy will be diagnostic. We failed to get the H pylori breath test so will get that today. At this point I am going to add dicyclomine to see if bowel irritability is part of the problem and she can use this as needed or when she has a severe attack to see if it is helpful. She wants to be put on a cancellation list for her colonoscopy since she works a rotating schedule and does sometimes have days off during the week. I have sent a note to the schedulers and also encouraged her to call them to make sure the communication lines are clear. ROV 6 weeks. Medications: New dicyclomine 20 mg PO QID PRN 120 tabs 3RF abdominal pain 30 days LABS: EGD/ COLONOSCOPY 05/19/24 Findings: Larynx:normal Esophagus: GE junction at 35 cm, diaphragm hiatus at 37 cm, consistent with 2 cm sliding hiatal hernia, midl esophagitis noted, bx taken Stomach: patchy erythema with erosions. Biopsies were obtained. Grade 2 flap valve on retroflexed examination of the cardia. Duodenum: Normal bulb and descending duodenum, bx taken Findings: Tortuous colon ++ Terminal Ileum-normal- superficially intubated Random colon bx taken Cecum:normal Ascending Colon: normal Transverse Colon -normal Descending Colon:normal Sigmoid Colon: normal Rectum: Retroflexion with small internal hemorrhoids, grade I Anorectum - normal Impression and Post Procedure Diagnosis: Endoscopy Findings: esophagitis erosive gastritis hiatal hernia Colonoscopy Findings: tortuous colon internal hemorrhoids Plan: Await Pathology results Repeat Colonoscopy in 1 year due to fair prep on right side or earlier if clinically indicated High fiber diet leaflet avoid straining at stool, epsom salts and sitz bath, anusol supps or cream consider PPI given she has nausea BIOPSY Received: 05/19/24 Diagnosis A. Duodenum, biopsy: Duodenal mucosa with preserved villi and no specific change. B. Stomach, biopsy: Gastric antral and body mucosa with congested vessels and minimal chronic inactive gastritis with moderate reactive changes and focal active erosion in the antral mucosa; negative for H.pylori, intestinal metaplasia and dysplasia. C. Gastroesophageal junction, biopsy: Squamocolumnar mucosa with mild chronic inflammation; negative for intestinal metaplasia and dysplasia. D. Esophagus, random, biopsy: Squamous mucosa with rare intraepithelial neutrophils suggesting esophagitis, and fragment of columnar mucosa with mild chronic inflammation; negative for intestinal metaplasia and dysplasia. E. Terminal ileum and random colon, biopsy: Ileal and colonic mucosa with no specific change TODAY'S VISIT The procedure needs to be repeated in 1 year due to fair prep on the right side. She says her stooling was clear at the end of the prep, yet the report. She had suprep, so perhaps bisacodal with this and low fiber diet week before. She continues to have diarrhea but only right before her menses so this is likely. The procedure was well tolerated. The results were explained and the patient is agreeable to the follow-up interval as stated. Education was provided to tell any 1st degree relatives about their findings to be sure that they are screened by age 45. Educated that they will be put on a recall list when it is time for their repeat scope but should they move out of state or away from the hospital they will need to remember along with their primary to repeat the procedure in a timely fashion to avoid any adverse complications. The EGD showed an antral erosion. She has used omeprazole but not consistently, only when I have stomach pain. She does notice that pain and nausea seem to go together particularly when she is doing yoga. I have encouraged her to use the pantoprazole daily for at least 6 weeks to try to allow the ulcer to heal and see if that helps with the underlying nausea. She also has Zofran that was prescribed by her primary care provider. She is going through quite a lot of workup right now because there is definitely something going on with her immune system that her wastewater analyst lab analyst is having trouble pinning down. She does have diarrhea but this seems to be hormonal just before her menses. This is a relatively normal thing as is with some women, nausea right before the menses especially during the premenopausal. When the hormones begin becoming somewhat erratic. The Creon continues to work well in controlling her gas and bloating. ROV 6 mos. [facility] Medical History (Updated 06/30/24 @ 15:55 by Stephania Du, ANP-C) Blood in stool Hematochezia Pre-op examination Fecal urgency Left ankle pain Closed left ankle fracture Nephrolithiasis Mood disorder Positive QuantiFERON-TB Gold test Urinary frequency Echocardiogram abnormal (~12/2009) GERD without esophagitis Vitamin D deficiency History of kidney stones Ankylosing spondylitis Tachycardia Benign essential hypertension Surgical History (Updated 06/30/24 @ 14:55 by DONTE Valentin) H/O colonoscopy History of augmentation of both breasts History of esophagogastroduodenoscopy (EGD) History of cystoscopy History of arthroscopy of left knee History of section Family History Father Hypercholesteremia Hypertension Mother Hypercholesteremia Hypertension Diabetes Maternal Grandmother History of breast cancer Social History Housing: House Are you a primary care mgr to a significant other at home: No Do you presently have visiting nurse or other home services: No Alcohol intake: never Patient Tobacco Use Status: Never used Tobacco e-Cigarette/Vaping Use: Never Used Second Hand Smoke Exposure: No service: No Current occupational status: employed 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 Current occupational exposures/hazards: No Cognitive needs: No Hearing needs: No Vision needs: Yes Review of Systems Const Denies fatigue, Denies fever(s), Denies night sweats, Denies poor appetite and Denies weight loss ENT Reports Normal hearing present, Denies dental pain, Denies dysphagia, Denies hearing loss, Denies mouth pain, Denies odynophagia, Denies throat swelling, Denies tongue swelling and Reports other (Dentition adequate) Card Reports no additional complaints Resp Reports no additional complaints and Reports wheezing GI Details: Reports abdominal pain, Denies melena, Reports bloating, Denies hematochezia, Denies constipation, Denies GI cramping, Denies dysphagia, Denies excessive flatus, Denies early satiety, Denies heartburn, Denies diarrhea, Reports nausea, Denies odynophagia, Denies vomiting and Denies hematemesis Musc Reports back pain and Reports arthralgias Skin/Breast Reports alopecia, Denies pruritus, Denies lesions, Denies rash and Denies jaundice Neuro Reports Normal hearing present and Denies Abnormal speech present Endo Denies fatigue Aller/Immun Reports urticaria, Denies throat swelling, Denies tongue swelling and Reports wheezing Physical Exam Vital Signs: Last Vital Signs BP 120/87 06/30/24 14:48 BMI result Body Mass Index 27.7 Const General: cooperative, no acute distress, well developed and well groomed Nutritional Appearance: average body habitus and well nourished Orientation/consciousness: oriented to person, oriented to place and oriented to time Limitations: No language barrier HEENT Head: Yes normocephalic and Yes atraumatic Eyes General: appearance normal, both eyes and all related structures Pupils: Equal, round and reactive pupils present Neck Neck: Yes normal visual inspection and Yes no lymphadenopathy Thyroid: Thyroid normal Resp Effort & Inspection: normal respiratory effort and able to speak in complete sen tences Auscultation: clear to auscultation bilaterally Cardio Rate: regular rate Rhythm: regular rhythm Heart sounds: Normal, physiologic split S2 sound present Peripheral pulses: radial pulses present and posterior tibial pulses present GI Inspection: No distended and No Abdominal panniculus present Palpation (GI): Soft to palpation, nontender, no guarding, not rigid and No hepa tosplenomegaly present Percussion: Yes normal to percussion Auscultation: normal bowel sounds Rectal Exam - Female: deferred Skin General skin exam: no rashes or lesions noted, turgor normal, skin not dry, no jaundice, No spider nevi and no striae Rashes: no rashes Nails: normal Neuro General: oriented to person, oriented to place and oriented to time Cranial nerves: Yes Equal, round and reactive pupils present and Yes Normal hearing present Speech: No Abnormal speech present Extrem General: Yes normal to inspection, No clubbing, No cyanosis and No edema Psych Appearance: grossly normal and well kempt Mental Status: mental status grossly normal Speech and movement: Normal speech and movement present Affect: normal affect Attitude: cooperative Thought process: Normal thought process present and not confabulating Thought content: Normal thought content present Insight: Fair insight present (Psych) Assessment & Plan Assessment & Plan (1) Erosive gastritis: Code(s): K29.60 - Other gastritis without bleeding Category: Medical (2) GERD without esophagitis: Code(s): K21.9 - Gastro-esophageal reflux disease without esophagitis Category: Medical Plan The procedure needs to be repeated in 1 year due to fair prep on the right side. She says her stooling was clear at the end of the prep, yet the report. She had suprep, so perhaps bisacodal with this and low fiber diet week before. She continues to have diarrhea but only right before her menses so this is likely. The procedure was well tolerated. The results were explained and the patient is agreeable to the follow-up interval as stated. Education was provided to tell any 1st degree relatives about their findings to be sure that they are screened by age 45. Educated that they will be put on a recall list when it is time for their repeat scope but should they move out of state or away from the hospital they will need to remember along with their primary to repeat the procedure in a timely fashion to avoid any adverse complications. The EGD showed an antral erosion. She has used omeprazole but not consistently, only when I have stomach pain. She does notice that pain and nausea seem to go together particularly when she is doing yoga. I have encouraged her to use the pantoprazole daily for at least 6 weeks to try to allow the ulcer to heal and see if that helps with the underlying nausea. She also has Zofran that was prescribed by her primary care provider. She is going through quite a lot of workup right now because there is definitely something going on with her immune system that her wastewater analyst lab analyst is having bj rai pinning down. She does have diarrhea but this seems to be hormonal just before her menses. This is a relatively normal thing as is with some women, nausea right before the menses especially during the premenopausal. When the hormones begin becoming somewhat erratic. The Creon continues to work well in controlling her gas and bloating. ROV 6 mos. We will discuss her recall colonoscopy at the next visit. Medications: Changed From pantoprazole 40 mg PO DAILY 60 tabs 2RF To pantoprazole 40 mg PO BID 60 tabs 6RF Refilled [id number] 24,000-76,000 -120,000 unit (Creon) 2 caps PO BID 120 caps 3RF 30 days K58.9 - Irritable bowel syndrome, unspecified Coding Level of Care Code Est Pt Level 3 (13868) Diagnoses Erosive gastritis K29.60 GERD without esophagitis K21.9
--- OUTSIDE RECORDS SUMMARY | 2024-06-30 14:49 | XMS_ITS | Encounter Summary ---
Author Name [facility] of [facility] ([place] Organization [facility] Address [address] [place] [address] Care Team Providers Care Haulpak Driver Name Role Phone TRINH FRANCO Primary [...] Relationship to Policy Gibson [facility]EM[facility] Dec 21, 2022 [id number] Jelani ALVAREZ PATIENT [employer] ([id number]) [facility] Jun 07, 2022 [id number] [phone] Jelani ALVAREZ PATIENT [facility] Jun 07, 2022 [id number] [phone] Jelain ALVAREZ PATIENT Selected Encounter This section includes the information on record at [place] for the Encounter. Date/Time Encounter Type Encounter Description Reason Provider Source May 13, 2024 09:40 AM Outpatient Encounter RHEUMATOLOGY/ARTHRI TIS LEANDRA RICHARD V IHJunior Encounter Template Text not used by [facility] Plan of Treatment: Future Appointments (+ 6 months) and Future Tests (+/- 45 days) The Plan of Treatment section includes future care activities for the patient from all [place] [facility]. This section includes future appointments and future orders which are active, pending or scheduled. Future Appointments This section includes appointments that were scheduled to occur 6 months from the date of the Encounter, up to a maximum of 20 appointments. The data comes from all [facility]. Appointment Date/Time Appointment Type Appointme nt Facility Name May 14, 2024 11:00 AM AMBULATORY - PSYCHIATRY [place] [facility] [place] [facility] May 14, 2024 01:00 PM AMBULATORY - PSYCHIATRY [place] [facility] [place] [facility] May 28, 2024 01:00 PM AMBULATORY - PS[facility]CHIATRY [facility] [place] [place] [facility] Jun 11, 2024 01:30 PM AMBULATORY - PSYCHIATRY [place] [facility] [place] [facility] Jun 11, 2024 02:00 PM AMBULATORY PSYCHIATRY [place] [facility] [place] [facility] Jun 15, 2024 10:45 AM AMBULATORY - MEDICINE IN [place] [facility] [place] [facility] Jun 18, 2024 01:00 PM AMBULATORY - PSYCHIATRY [facility] [place] [place] [facility] Jul 02, 2024 01:00 PM AMBULATORY - PS[facility]CHIATRY [facility] [place] [place] [facility] Jul 09, 2024 01:00 PM AMBULATORY - PSYCHIATRY [place] [facility] [place] [facility] Jul 16, 2024 01:00 PM AMBULATORY - PSYCHIATRY [place] [facility] [place] [facility] Jul 19, 2024 10:00 AM AMBULATORY - PSYCHIATRY [place] [place] [facility] Jul 23, 2024 01:00 PM AMBULATORY - PSYCHIATRY [place] [facility] [place] [facility] Aug 19, 2024 02:00 PM AMBULATORY - MEDICINE IN [place] [facility] [place] [facility] Active, Pending, and Scheduled Orders This section includes a listing of several types of active, pending, and scheduled orders, including clinic medications orders, diagnostic test orders, procedure orders and consult orders; where the start date of the order is 45 days before the date of the Encounter or 45 days after the date of theEncounter. The data comes from all [facility]. Test Date/Time Test Type Test Details Facility Name May 10, 2024 03:43 PM Consult Order COMMUNITY CARE-UROLOGY Cons [facility] Lab Results: +/- 30 days of the encounter This section includes the Chemistry and Hematology Lab Results on record with [place] for the patient. Radiology Reports and Pathology Reports are provided separately, in subsequent sections. Lab Results This section contains the Chemistry/Hematology Results that were resulted 30 days before or 30 daysafter the date of the Encounter. Date/Time Source Result Type Result - Unit Interpretation Reference Range Comment May 10, 2024 08:51 AM [facility] HLA-B27 (QU) Specimen Type: BLOOD Comment: normalcy status - Abnormal Test Performed by [facility] [place] [facility] [place], [address] [place] [address] Rodger Bender M.D., Ph.D., Director of Laboratories , [place] [id number] TEST PERFORMED AT: , Ordering Provider: LEANDRA RICHARD V Report Released Date/Time: May 06, 2024 01:47 PM Reporting Lab: [facility] [address] [facility] [address] Performing Lab: [facility] [address] [address] HLA-B27 Positive Negative May 10, 2024 08:51 AM [facility] T-SPOT TB PANEL Specimen Type: BLOOD [...] For additional information, please refer to http://education .VeraLight/faq/FJU885 (This link is being provided for informational/ educational purposes only.) Test Performed by [facility], [place] [facility] [place], [address] [place] [address] Rodger Bender M.D., Ph.D., Director of Laboratories , [facility] [id number] TEST PERFORMED AT: , Ordering Provider: LEANDRA RICHARD V Report Released Date/Time: May 06, 2024 01:47 PM Reporting Lab: [address] [address] Performing Lab: [facility] [address] [address] [id number] T (o) Negative Negative T-SPOT-PNLA 0 T-SPOT-PNLB 2 F-YYIG-TTADX RL Passed O-LFAU-MJHCS RL Passed May 10, 2024 08:51 AM [facility] JOSEPH SCREEN/TITER Specimen Type: SERUM No comment entered. Ordering Provider: LEANDRA RICHARD V Report Released Date/Time: May 06, 2024 01:47 PM Reporting Lab: [facility] [address] [facility] [address] Performing Lab: [facility] [address] [facility] [address] JOSEPH SCREEN NEG NEG <1:40 May 10, 2024 08:51 AM [facility] HEPATITIS B CORE (Total) Ab Specimen [...] May 06, 2024 01:47 PM Reporting Lab: [facility] [address] [facility] [address] Performing Lab: [address] [address] HEPATITIS B CORE (Total) Ab Non Reactive Non Reactive May 10, 2024 08:51 AM [facility] HEPATITIS B SURFACE ANTIBODY (HBsAb)-WH Specimen [...] May 06, 2024 01:47 PM Reporting Lab: [address] [address] Performing Lab: [address] [address] HBsAb REACTIVE Non Reactive May 10, 2024 08:51 AM [facility] CBC Specimen Type: BLOOD No comment entered. Ordering Provider: LEANDRA RICHARD V Report Released Date/Time: May 06, 2024 01:47 PM Reporting Lab: [address] [address] Performing Lab: [address] [address] WBC 5.62 10*3/uL 4.50-11.00 RBC 3.76 10*6/uL L 3.93-5.16 HGB 12.3 g/dL 12-15.2 HCT 35.8 L 36.6-45.6 MCV 95.2 fL 82-99 MCHC 34.4 g/dL 30.8-35.1 PLT 322 10*3/uL 140-360 RDW-CV 11.8 L 12.0-16.0 MCH 32.7 pg H 26.2-32.6 May 10, 2024 08:51 AM [facility] HEPATITIS C ANTIBODY (HCV)-ARC Specimen Type: SERUM Comment: Hep C Ab: No HCV antibody detected. If recent infection is suspected or other evidence suggests HCV infection, consider HCV nucleic acid testing Ordering Provider: LEANDRA RICHARD V Report Released Date/Time: May 06, 2024 01:47 PM Reporting Lab: [address] [address] Performing Lab: [address] [address] HEPATITIS C ANTIBODY NON-REACTIVE NON-REACTI VE May 10, 2024 08:51 AM [facility] LIVER FUNCTION Specimen Type: SERUM No comment entered. Ordering Provider: LEANDRA RICHARD V Report Released Date/Time: May 06, 2024 01:47 PM Reporting Lab: [address] [address] Performing Lab: [address] [address] PROTEIN,TOTA L 6.3 g/dL 6.0-8.3 ALBUMIN 3.5 g/dL 3.5-5.0 ALKALINE PHOSPHATASE 46 U/L 40-150 AST 14 U/L 5-34 ALT 11 U/L BILIRUBIN, TOTAL 0.4 mg/dL 0.2-1.2 May 10, 2024 08:51 AM [facility] URIC ACID Specimen Type: SERUM No comment entered. Ordering Provider: LEANDRA RICHARD V Report Released Date/Time: May 06, 2024 01:47 PM Reporting Lab: [facility] [address] [facility] [address] Performing Lab: [facility] [place] [facility] [address] [facility] [address] URIC ACID 4.4 mg/dL 2.6-6 May 10, 2024 08:51 AM [facility] [place] [place] [facility] PO4 Specimen Type: SERUM No comment entered. Ordering Provider: LEANDRA RICHARD V Report Released Date/Time: May 06, 2024 01:47 PM Reporting Lab: [facility] [place] [facility] [address] [facility] [address] Performing Lab: [facility] [address] [facility] [address] PO4 4.0 mg/dL 2.5-5.0 May 10, 2024 08:51 AM [facility] TSH Specimen Type: SERUM No comment entered. Ordering Provider: LEANDRA RICHARD V Report Released Date/Time: May 06, 2024 01:47 PM Reporting Lab: [facility]TRN [facility]ITAL[facility] [address] [facility] [address] Performing Lab: [facility]TRN [facility] [address] [facility] [address] TSH 1.38 u[IU]/mL 0.35-5.00 May 10, 2024 08:51 AM [facility]N [facility] BASIC METABOLIC PANEL (non-fasting) Specimen Type: SERUM No comment entered. Ordering Provider: LEANDRA RICHARD V Report Released Date/Time: May 06, 2024 01:47 PM Reporting Lab: [facility] [place] [facility] [address] [facility] [address] Performing Lab: [facility]ITALR[facility] DOTHANTRN [facility]ITAL[facility] [address] [facility] [address] UREA NITROGEN 20 mg/dL 7-25 GLUCOSE 83 [...] this document. The data comes from all [place] facilities. Date Advance Directives Provider Source Mar 25, 2023 ADVANCE DIRECTIVE PETROS MOTLEY JENNYAmberly [facility] Radiology [...] the Encounter. The data comes from all [place] treatment facilities. Date/Time Radiology Report Provider Source May 10, 2024 10:36 AM HAND 3 OR MORE VIEWS: JAYLAN ALVAREZ [id number] -1980 F Exm Date: MAY 10, 2024@10:36 Req Phys: LEANDRA RICHARD V Pat Loc: CWM/NO/RHEUMATOLOGY B (Req'g L Img Loc: [facility] Service: Unknown Screen: Patient answered no [facility] [place] [address] (Case 27 COMPLETE) FOOT 3 OR MORE VIEWS (RIGHT) (RAD Detailed) CPT:13228 Proc Modifiers : RIGHT CPT Modifiers : RT RIGHT SIDE Reason for Study: Evaluate for evid of spondyloarthropathy/erosion (Case 28 COMPLETE) FOOT 3 OR MORE VIEWS(LEFT) (RAD Detailed) CPT:02090 Proc Modifiers : LEFT CPT Modifiers : LT LEFT SIDE Clinical History: Pt with hx of on etanercept. Reports hand swelling Report Status: Verified Date Reported: MAY 10, 2024 Date Verified: MAY 10, 2024 Maths Tutor E-Sig:/ES/ANTONELLA BEARD JR Report: Study: Weight-bearing AP, [...] Primary Interpreting Staff: ANTONELLA BEARD JR, Radiologist (Maths Tutor) /ANTONELLA CANO JR [facility] May 10, 2024 10:35 AM SPINE LUMBOSACRAL MIN 4 VIEWS: JAYLAN ALVAREZ [id number] -1980 F Exm Date: MAY 10, 2024@10:35 Req Phys: LEANDRA RICHARD V Pat Loc: CWM/NO/RHEUMATOLOGY B (Req'g L Img Loc: [facility] 1 Service: Unknown Screen: Patient answered no [place] [facility] [place] [address] (Case 25 COMPLETE) SPINE LUMBOSACRAL MIN 4 VIEWS (RAD Detailed) CPT:50217 Reason for Study: Evaluate for evid of spondyloarthropathy Clinical History: Pt with hx of on etanercept Report Status: Verified Date Reported: MAY 10, 2024 Date Verified: MAY 10, 2024 Maths Tutor E-Sig:/ES/ANTONELLA BEARD JR Report: Study: AP, left [...] Primary Interpreting Staff: ANTONELLA BEARD JR, Radiologist (Maths Tutor) /ANTONELLA CANO JR [facility] May 10, 2024 10:35 AM SPINE CERVICAL, 4 OR 5 VIEWS: JAYLAN ALVAREZ [id number] -1980 F Exm Date: MAY 10, 2024@10:35 Req Phys: LEANDRA RICHARD V Pat Loc: CWM/NO/RHEUMATOLOGY B (Req'g L Img Loc: [facility] 1 Service: Unknown Screen: Patient answered no [facility] [place] [place] (Case 26 COMPLETE) SPINE CERVICAL, 4 OR 5 VIEWS (RAD Detailed) CPT:38911 Reason for Study: Evaluate for evid of spondyloarthropathy Clinical History: Pt with hx of on etanercept Report Status: Verified Date Reported: MAY 10, 2024 Date Verified: MAY 10, 2024 Maths Tutor E-Sig:/ES/ANTONELLA BEARD JR Report: Study: AP, lateral [...] Primary Interpreting Staff: ANTONELLA BEARD JR, Radiologist (Maths Tutor) /EAD ANTONELLA BEARD JR [facility] May 10, 2024 10:34 AM FOOT 3 OR MORE VIEWS (RIGHT): JAYLAN ALVAREZ [id number] -1980 F Exm Date: MAY 10, 2024@10:34 Req Phys: LEANDRA RICHARD V Pat Loc: CWM/NO/RHEUMATOLOGY B (Req'g L Img Loc: [facility] 1 Service: Unknown Screen: Patient answered no [place] [address] (Case 23 COMPLETE) HAND 3 OR MORE VIEWS(LEFT) (RAD Detailed) CPT:16101 Reason for Study: Evaluate for evid of erosion - bilateral exam (Case 24 COMPLETE) HAND3 OR MORE VIEWS(RIGHT) (RAD Detailed) CPT:10727 Clinical History: Pt with hx of on etanercept. Reports foot swelling also hx of kidney stones Report Status: Verified Date Reported: MAY 10, 2024 Date Verified: MAY 10, 2024 Maths Tutor E-Sig:/ES/ANTONELLA BEARD JR Report: Study: AP, [place], [...] Primary Interpreting Staff: ANTONELLA BEARD JR, Radiologist (Maths Tutor) /ANTONELLA CANO JR [facility] Encounter Notes: All associated encounter notes This section contains the clinical notes associated to the Encounter. Date/Time Encounter Note(s) Provider Source May 25, 2024 11:16 AM RHEUMATOLOGY GigDropper MESSAGING: LOCAL TITLE: RHEUMATOLOGY SECURE MESSAGING STANDARD TITLE: RHEUMATOLOGY SECURE MESSAGING DATE OF NOTE: MAY 25, 2024@11:16 ENTRY DATE: MAY 25, 2024@11:16:56 AUTHOR: KATHY FRANCIS COSIGNER: URGENCY: STATUS: COMPLETED ------Original Message ------- Sent: 05/20/2024 03:17 PM ET From: JAYLAN ALVAREZ To: RHEUMATOLOGY_[facility]@ Subject: General:Follow up with Dr Richard Attachments: [id number].jpg (347.45 KB), [id number].jpg (554.95 KB), [id number].jpg (344.03 KB), [id number].jpg (363.36 KB) Good afternoon, I had a colonoscopy [...] 10:43 AM ET From: JAYLAN ALVAREZ To: RHEUMATOLOGY_[facility]@ Subject: General:Follow up with Dr Richard No, this was the report back from the surgeon on [facility] portal. I have not met with anyone else yet /mat/ KATHY FRANCIS LPN LICENSED PRACTICAL NURSE Signed: 05/25/2024 11:16 Receipt Acknowledged By: 06/27/2024 22:19 /meet RICHARD STAFF PHYSICIAN KATHY FRANCIS [facility] [place] [facility] May 13, 2024 01:55 PM RHEUMATOLOGY IsoteraUR E MESSAGING: LOCAL TITLE: RHEUMATOLOGY SECURE MESSAGING STANDARD TITLE: RHEUMATOLOGY SECURE MESSAGING DATE OF NOTE: MAY 13, 2024@13:55 ENTRY DATE: MAY 13, 2024@13:55:44 AUTHOR: LEANDRA RICHARD V EXP COSIGNER: URGENCY: STATUS: COMPLETED ------Original Message ------- Sent: 05/13/2024 01:47 PM ET From: JAYLAN ALVAREZ To: RHEUMATOLOGY_[facility]@ Subject: General:Follow up with Dr Richard I [facility] into [facility] [place] on Friday to sign the additional release [...] PHYSICIAN Signed: 05/13/2024 13:55 LEANDRA RICHARD V [facility] [place] [facility] May 13, 2024 09:40 AM RHEUMATOLOGY SECUR E MESSAGING: LOCAL TITLE: RHEUMATOLOGY SECURE MESSAGING STANDARD TITLE: RHEUMATOLOGY SECURE MESSAGING DATE OF NOTE: MAY 13, 2024@09:40 ENTRY DATE: MAY 13, 2024@09:40:40 AUTHOR: LEANDRA RICHARD V EXP COSIGNER: URGENCY: STATUS: COMPLETED ------Original Message ------- Sent: 05/10/2024 09:19 AM ET From: JAYLAN ALVAREZ To: RHEUMATOLOGY_[facility]@ Subject: General:Follow up with Dr Richard Attachments: [id number].png (188.31 KB), [id number].png (204.66 KB), [id number].png (217.31 KB), [id number].png (215.21 KB) Good morning, I had an [...] 09:40 LEANDRA RICHARD V [facility]
--- OUTSIDE RECORDS SUMMARY | 2024-06-30 14:50 | XMS_ITS ---
Author Name Department of Vetera Affairs ([place]) Organization [facility] Address [address] [place] [address] Care Team Providers Care Nail Sticker Name Role Phone TRINH FRANCO Primary Care [...] [facility] Dec 21, 2022 [id number] [phone] Jelani ALVAREZ PATIENT [employer] ([id number]) PRESCRIPT ION [facility] Jun 07, 2022 [id number] [phone] Jelani ALVAREZ PATIENT [facility] ORGANIZAT ION [facility] STATE AGENC Y Jun 07, 2022 [id number] [phone] Jelani ALVAREZ PATIENT Selected Encounter This section includes the information on record at [place] for the Encounter. Date/Time Encounter Type Encounter Description Reason Pro vider Source Jun 25, 2024 01:00 PM Outpatient Encounter [facility] Encounter Template Text not used by VA Plan of Treatment: Future Appointments (+ 6 months) and Future Tests (+/- 45 days) The Plan of Treatment section includes future care activities for the patient from all [place] [facility]. This section includes future appointments and [...] 02, 2024 01:00 PM AMBULATORY - PSYCHIATRY [facility] Jul 09, 2024 01:00 PM [facility] Jul 16, 2024 01:00 PM [facility] Jul 19, 2024 10:00 AM [facility] Jul 23, 2024 01:00 PM [facility] Aug 19, 2024 02:00 PM [facility]UL[facility] Social History: Smoking Status (Most current) [...] Facil ity May 14, 2024 01:00 PM DE-TOBACCO NEVER U SED CIGARETTES [facility] Tobacco Use History This section includes a history of the smoking, or tobacco-related health factors, that were collected on or before the date of the Encounter. The data comes from the [place] facility where the Encounter took place. Date/Time Smoking Status/Tobacco Use Comment F acility May 14, 2024 01:00 PM DE-TOBACCO NEVER U SED OTHER TYPE [facility] Advance Directives: All historical and current [...] Provider Source Mar 25, 2023 ADVANCE DIRECTIVE [facility]MON[facility] Encounter Notes: All associated encounter notes This section contains the clinical notes associated to the Encounter. Date/Time Encounter Note(s) Provider Source Jun 25, 2024 12:43 PM ADMINISTRATIVE NOTE: LOCAL TITLE: ADMINISTRATIVE NOTE STANDARD TITLE: ADMINISTRATIVE NOTE DATE OF NOTE: JUN 25, 2024@12:43 ENTRY DATE: JUN 25, 2024@12:44 AUTHOR: AZALEA RODRIGUEZ COSIGNER: URGENCY: STATUS: COMPLETED sent a secure message requesting to cancel 06/25 1pm [facility] appointment. We are scheduled for 07/02 at 1pm [facility]. /mat/ Azalea Rodriguez Psy.D. SEXUAL TRAUMA/WOMEN'S PSYCHOLOGIST Signed: 06/25/2024 12:44 Receipt Acknowledged By: * AWAITING SIGNATURE * NOBLE BURCH SABINA [facility]
--- OUTSIDE RECORDS SUMMARY | 2024-06-30 14:50 | XMS_ITS | Encounter Summary ---
Author Name Department of Vetera Affairs ([place]) Organization [facility] Address [address] [place] [address] Care Team Providers Care Link Trainer Mechanic Name Role Phone TRINH FRANCO Primary [...] [facility] Dec 21, 2022 [id number] [phone] Jelani ALVAREZ PATIENT [employer] ([id number]) PRESCRIPT ION [facility] Jun 07, 2022 [id number] [phone] Jelani ALVAREZ PATIENT [facility] ORGANIZAT ION [facility] Jun 07, 2022 [phone] Jelani ALVAREZ PATIENT Selected Encounter This section includes the information on record at [place] for the Encounter. Date/Time Encounter Type Encounter Description Reason Pro vider Source Jun 17, 2024 08:42 AM Outpatient Encounter TELEPHONE PRIMARY CARE IHE Encounter Template Text not used by [facility] Plan of Treatment: Future Appointments (+ 6 months) and Future Tests (+/- 45 days) The Plan of Treatment section includes future care activities for the patient from all [place] [facility]. This section includes future appointments and future orders which are active, pending or scheduled. Future Appointments This section includes appointments that were scheduled to occur 6 months from the date of the Encounter, up to a maximum of 20 appointments. The data comes from all [facility]. Appointment Date/Time Appointment Type Appointme nt Facility Name Jun 18, 2024 01:00 PM [facility] Jul 02, 2024 01:00 PM [facility] Jul 09, 2024 01:00 PM [facility] Jul 16, 2024 01:00 PM [facility] Jul 19, 2024 10:00 AM [facility] Jul 23, 2024 01:00 PM [facility] Aug 19, 2024 02:00 PM [facility] Active, Pending, and Scheduled Orders This section includes a listing of several types of active, pending, and scheduled orders, including clinic medications orders, diagnostic test orders, procedure orders and consult orders; where the start date of the order is 45 days before the date of the Encounter or 45 days after the date of theEncounter. The data comes from all [facility]. Test Date/Time Test Type Test Details Facility Name May 10, 2024 03:43 PM Consult Order COMMUNITY CARE-UROLOGY Cons Theatrical Rigger's Choice [facility] Social History: Smoking Status (Most current) and Tobacco Use (All prior to encounter date) This section includes the most current, and the historical, smoking and tobacco- related health factors from the [place] facility where the Encounter took place. Current Smoking Status This section includes the most current smoking, or tobacco-related health factor, from the [place] facility where the Encounter took place. Date/Time Current Smoking Status Nahomy tello May 14, 2024 01:00 PM [place]-TOBACCO NEVER U SED CIGARETTES [facility] Tobacco Use History This section includes a history of the smoking, or tobacco-related health factors, that were collected on or before the date of the Encounter. The data comes from the [place] facility where the Encounter took place. Date/Time Smoking Status/Tobacco Use Comment F acility May 14, 2024 01:00 PM VA-TOBACCO NEVER U SED OTHER TYPE [facility] Advance Directives: All historical and current Section Date Range: From patient's date of to the date document was created. This section includes ALL of a patient's completed or amended [place] Advance and Rescinded Directives. The entries below indicate that a directive exists for the patient, but an actual copy is not included with this document. The data comes from all [place] facilities. Date Advance Directives Provider Source Mar 25, 2023 ADVANCE DIRECTIVE [facility] Encounter Notes: All associated encounter notes This section contains the clinical notes associated to the Encounter. Date/Time Encounter Note(s) Provider Source Jun 17, 2024 08:42 AM PREVENTIVE MEDICIN E NURSING NOTE: LOCAL TITLE: CLINICAL REMINDERS/NURSING STANDARD TITLE: PREVENTIVE MEDICINE NURSING NOTE DATE OF NOTE: JUN 17, 2024@08:42 ENTRY DATE: JUN 17, 2024@08:42:46 AUTHOR: ALENA PULLIAM EXP COSIGNER: URGENCY: STATUS: COMPLETED Colonoscopy GAP Reminder: Recommendations are needed in the clinical reminder system following the patient's most recent colorectal cancer screening/surveillance test (Colonoscopy, Sigmoidoscopy or CT Colonography) Prior/outside colonoscopy results: [place] done 05/18/24, repeat 1yr Found in [facility] Date: May 18, 2024 Colonoscopy reminder set 1 year from JUN 17, 2024. Taken from [facility]: [facility] [place] 05/18/24 Provider: Dr. Weldon Colonoscopy report Plan: Await Pathology results Repeat Colonoscopy in 1 year due to fair prep on right side or earlier if clinically indicated High fiber diet leaflet avoid straining at stool, epsom salts and sitz bath, anusol supps or cream consider PPI given she has nausea /es/ Alena HOWELL RN CNL Primary Care RN Signed: 06/17/2024 08:44 ALENA PULLIAM [facility]
--- OUTSIDE RECORDS SUMMARY | 2024-06-30 14:50 | XMS_ITS | Encounter Summary ---
Author Name Department of [place] Organization [facility] ([place]) Address [address] [place] [address] Care Team Providers Care Director Of Acquisitions Name Role Phone TRINH FRANCO Primary Care [...] Relationship to Policy Gibson [place] PRESCRIPT ION [facility] Dec 21, 2022 [id number] [phone] Jelani ALVAREZ PATIENT [employer] ([id number]) PRESCRIPT ION [facility] Jun 07, 2022 [id number] [phone] Jelani ALVAREZ PATIENT [facility] CE ORGANIZAT ION [facility] Jun 07, 2022 [id number] [phone] Jelani ALVAREZ PATIENT Selected Encounter This section includes the information on record at [place] for the Encounter. Date/Time Encounter Type Encounter Description Reason Pro vider Source Jun 17, 2024 12:00 AM Outpatient Encounter EVENT (HISTORICAL) IHE Encounter Template Text not used by [facility] Plan of Treatment: Future Appointments (+ 6 months) and Future Tests (+/- 45 days) The Plan of Treatment section includes future care activities for the patient from all [place] [facility]. This section includes future appointments and future orders which are active, pending or scheduled. Future Appointments This section includes appointments that were scheduled to occur 6 months from the date of the Encounter, up to a maximum of 20 appointments. The data comes from all [facility]. Appointment Date/Time Appointment Type Appointme nt Facility Name Jun 18, 2024 01:00 PM [facility]ULAT[facility] Jul 02, 2024 01:00 PM [facility] Jul 09, 2024 01:00 PM [facility] Jul 16, 2024 01:00 PM [facility] Jul 19, 2024 10:00 AM [facility] Jul 23, 2024 01:00 PM [facility] Aug 19, 2024 02:00 PM [facility] Active, Pending, and Scheduled Orders This section includes a listing of several types of active, pending, and scheduled orders, including clinic medications orders, diagnostic test orders, procedure orders and consult orders; where the start date of the order is 45 days before the date of the Encounter or 45 days after the date of theEncounter. The data comes from all [facility]. Test Date/Time Test Type Test Details Facility Name May 10, 2024 03:43 PM Consult Order COMMUNITY CARE-UROLOGY Cons [employer] [facility] Social History: Smoking Status (Most current) and Tobacco Use (All prior to encounter date) This section includes the most current, and the historical, smoking and tobacco- related health factors from the [place] facility where the Encounter took place. Current Smoking Status This section includes the most current smoking, or tobacco-related health factor, from the [place] facility where the Encounter took place. Date/Time Current Smoking Status Nahomy tello May 14, 2024 01:00 PM [place]-TOBACCO NEVER U SED CIGARETTES [facility] Tobacco Use History This section includes a history of the smoking, or tobacco-related health factors, that were collected on or before the date of the Encounter. The data comes from the [place] facility where the Encounter took place. Date/Time Smoking Status/Tobacco Use Comment F acility May 14, 2024 01:00 PM VA-TOBACCO NEVER U SED OTHER TYPE [place] [facility] [place] [facility] Advance Directives: All historical and current Section Date Range: From patient's date of to the date document was created. This section includes ALL of a patient's completed or amended [place] Advance and Rescinded Directives. The entries below indicate that a directive exists for the patient, but an actual copy is not included with this document. The data comes from all [place] facilities. Date Advance Directives Provider Source Mar 25, 2023 ADVANCE DIRECTIVE PETROS MOTLEY
--- OUTSIDE RECORDS SUMMARY | 2024-06-30 14:50 | XMS_ITS | Encounter Summary ---
Author Name Department of Vetera Affairs ([place]) Organization Department of [facility] ([place]) Address [address] [place] [address] Care Team Providers Care Vocational Rehabilitation Technician Name Role Phone TRINH FRANCO Primary [...] Relationship to Policy Gibson CAREMARK PRESCRIPT ION [facility] Dec 21, 2022 [id number] Jelani ALVAREZ PATIENT [employer] ([id number]) PRESCRIPT ION GIC Jun 07, 2022 [id number] Jelani ALVAREZ PATIENT [facility] CE ORGANIZAT ION [facility] STATE [facility] Y Jun 07, 2022 [id number] Jelani ALVAREZ PATIENT Selected Encounter This section includes the information on record at [place] for the Encounter. Date/Time Encounter Type Encounter Description Reason Pro vider Source May 18, 2024 12:00 AM Outpatient Encounter EVENT (HISTORICAL) IHE Encounter Template Text not used by VA Plan of Treatment: Future Appointments (+ 6 months) and Future Tests (+/- 45 days) The Plan of Treatment section includes future care activities for the patient from all [facility]. This section includes future appointments and future orders which are active, pending or scheduled. Future Appointments This section includes appointments that were scheduled to occur 6 months from the date of the Encounter, up to a maximum of 20 appointments. The data comes from all [facility]. Appointment Date/Time Appointment Type Appointme nt Facility Name May 28, 2024 01:00 PM AMBULATORY - PSYCHIATRY [facility] [place] [facility] Jun 11, 2024 01:30 PM AMBULATORY - PSYCHIATRY [facility] [place] [facility] Jun 11, 2024 02:00 PM AMBULATORY PSYCHIATRY [facility] [place] [facility] Jun 15, 2024 10:45 AM AMBULATORY - MEDICINE [facility] [place] [facility] Jun 18, 2024 01:00 PM AMBULATORY PSYCHIATRY [facility] [place] [facility] Jul 02, 2024 01:00 PM AMBULATORY PSYCHIATRY [facility] [place] [facility] Jul 09, 2024 01:00 PM AMBULATORY PSYCHIATRY [facility] [place] [facility] Jul 16, 2024 01:00 PM AMBULATORY PSYCHIATRY [facility] [place] [facility] Jul 19, 2024 10:00 AM AMBULATORY PSYCHIATRY [facility] [place] [facility] Jul 23, 2024 01:00 PM AMBULATORY PSYCHIATRY [facility] [place] [facility] Aug 19, 2024 02:00 PM AMBULATORY - MEDICINE [facility] [place] [facility] Active, Pending, and Scheduled Orders This section includes a listing of several types of active, pending, and scheduled orders, including clinic medications orders, diagnostic test orders, procedure orders and consult orders; where the start date of the order is 45 days before the date of the Encounter or 45 days after the date of theEncounter. The data comes from all [facility]. 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 Radiology Reports and Pathology Reports are provided separately, in subsequent sections. Lab Results This section contains the Chemistry/Hematology Results that were resulted 30 days before or 30 daysafter the date of the Encounter. Date/Time Source Result Type Result - Unit Interpretation Reference Range Comment May 10, 2024 08:51 AM [facility] HLA-B27 (QU) Specimen Type: BLOOD Comment: normalcy status - Abnormal Test Performed by [facility], [facility], [address] [place] [address] Rodger Bender M.D., Ph.D., Director of Laboratories , [place] [id number] TEST PERFORMED AT: , Ordering Provider: LEANDRA BAEZ V Report Released Date/Time: May 06, 2024 01:47 PM Reporting Lab: [facility] [address] [facility] [address] Performing Lab: [facility] [address] [address] HLA-B27 Positive Negative May 10, 2024 08:51 AM [facility] T-SPOT TB PANEL Specimen Type: BLOOD [...] For additional information, please refer to http://education .[employer]/faq/GNH467 (This link is being provided for informational/ educational purposes only.) Test Performed by Gaetano Thomas, [facility], [address] [place], [place] Rodger Bender M.D., Ph.D., Director of Laboratories , CLIA [id number] TEST PERFORMED AT: , Ordering Provider: LEANDRA BAEZ V Report Released Date/Time: May 06, 2024 01:47 PM Reporting Lab: [facility] [address] [facility] [address] Performing Lab: [facility] [address] [address] H-[id number]-[id number] T (o) Negative Negative T-SPOT-PNLA 0 T-SPOT-PNLB 2 G-EZJO-MCQTP RL Passed Z-HUMP-MZINQ RL Passed May 10, 2024 08:51 AM [facility] JOSEPH SCREEN/TITER Specimen Type: SERUM No comment entered. Ordering Provider: LEANDRA BAEZ V Report Released Date/Time: May 06, 2024 01:47 PM Reporting Lab: [facility] [address] [facility] [address] Performing Lab: [facility] [address] [facility] [address] JOSEPH SCREEN NEG NEG <1:40 May 10, 2024 08:51 AM [facility] HEPATITIS B CORE (Total) Ab Specimen [...] May 06, 2024 01:47 PM Reporting Lab: [address] [address] Performing Lab: [address] [address] HEPATITIS B CORE (Total) Ab Non Reactive Non Reactive May 10, 2024 08:51 AM [facility] HEPATITIS B SURFACE ANTIBODY (HBsAb)-WH Specimen [...] May 06, 2024 01:47 PM Reporting Lab: [address] [address] Performing Lab: [address] [address] HBsAb REACTIVE Non Reactive May 10, 2024 08:51 AM [facility] CBC Specimen Type: BLOOD No comment entered. Ordering Provider: LEANDRA BAEZ V Report Released Date/Time: May 06, 2024 01:47 PM Reporting Lab: [address] [address] Performing Lab: [address] [address] WBC 5.62 10*3/uL 4.50-11.00 RBC 3.76 10*6/uL L 3.93-5.16 HGB 12.3 g/dL 12-15.2 HCT 35.8 L 36.6-45.6 MCV 95.2 fL 82-99 MCHC 34.4 g/dL 30.8-35.1 PLT 322 10*3/uL 140-360 RDW-CV 11.8 L 12.0-16.0 MCH 32.7 pg H 26.2-32.6 May 10, 2024 08:51 AM [facility] HEPATITIS C ANTIBODY (HCV)-ARC Specimen Type: SERUM Comment: Hep C Ab: No HCV antibody detected. If recent infection is suspected or other evidence suggests HCV infection, consider HCV nucleic acid testing Ordering Provider: LEANDRA BAEZ V Report Released Date/Time: May 06, 2024 01:47 PM Reporting Lab: [address] [address] Performing Lab: [address] [address] HEPATITIS C ANTIBODY NON-REACTIVE NON-REACTI VE May 10, 2024 08:51 AM [facility] LIVER FUNCTION Specimen Type: SERUM No comment entered. Ordering Provider: LEANDRA BAEZ V Report Released Date/Time: May 06, 2024 01:47 PM Reporting Lab: [address] [address] Performing Lab: [address] [address] PROTEIN,TOTA L 6.3 g/dL 6.0-8.3 ALBUMIN 3.5 g/dL 3.5-5.0 ALKALINE PHOSPHATASE 46 U/L 40-150 AST 14 U/L 5-34 ALT 11 U/L BILIRUBIN, TOTAL 0.4 mg/dL 0.2-1.2 May 10, 2024 08:51 AM [facility] URIC ACID Specimen Type: SERUM No comment entered. Ordering Provider: LEANDRA BAEZ V Report Released Date/Time: May 06, 2024 01:47 PM Reporting Lab: [address] [address] Performing Lab: [address] [address] URIC ACID 4.4 mg/dL 2.6-6 May 10, 2024 08:51 AM [facility] [place] [facility] PO4 Specimen Type: SERUM No comment entered. Ordering Provider: LEANDRA BAEZ V Report Released Date/Time: May 06, 2024 01:47 PM Reporting Lab: [facility] [place] [facility] [address] [facility] [address] Performing Lab: [facility] [address] [facility] [address] PO4 4.0 mg/dL 2.5-5.0 May 10, 2024 08:51 AM [facility] TRN [facility] TSH Specimen Type: SERUM No comment entered. Ordering Provider: LEANDRA BAEZ V Report Released Date/Time: May 06, 2024 01:47 PM Reporting Lab: [facility] [address] [facility] [address] Performing Lab: [facility]USETS [address] [address] TSH 1.38 u[IU]/mL 0.35-5.00 May 10, 2024 08:51 AM [facility] BASIC METABOLIC PANEL (non-fasting) Specimen Type: SERUM No comment entered. Ordering Provider: LEANDRA BAEZ V Report Released Date/Time: May 06, 2024 01:47 PM Reporting Lab: [facility]TR[facility]ETS [address] [address] Performing Lab: [facility] [place] [address] [address] UREA NITROGEN 20 mg/dL 7-25 GLUCOSE 83 [...] and tobacco- related health factors from the AR facility where the Encounter took place. Current Smoking Status This section includes the most current smoking, or tobacco-related health factor, from the AR facility where the Encounter took place. Date/Time Current Smoking Status Comment Claudia ity May 14, 2024 01:00 PM VA-TOBACCO NEVER U SED CIGARETTES [facility] Tobacco Use History This section includes a history of the smoking, or tobacco-related health factors, that were collected on or before the date of the Encounter. The data comes from the AR facility where the Encounter took place. Date/Time Smoking Status/Tobacco Use Comment F acility May 14, 2024 01:00 PM VA-TOBACCO NEVER U SED OTHER TYPE [facility] Advance Directives: All historical and current Section Date Range: From patient's date of to the date document was created. This section includes ALL of a patient's completed or amended [place] Advance and Rescinded Directives. The entries below indicate that a directive exists for the patient, but an actual copy is not included with this document. The data comes from all [place] facilities. Date Advance Directives Provider Source Mar 25, 2023 ADVANCE DIRECTIVE PETROS MOTLEY [facility] Radiology Reports: +/- 30 days [...] the Encounter. The data comes from all [place] treatment facilities. Date/Time Radiology Report Provider Source May 10, 2024 10:36 AM HAND 3 OR MORE VIEWS: JAYLAN ALVAREZ Zhou [id number] -1980 F Exm Date: MAY 10, 2024@10:36 Req Phys: LEANDRA BAEZ V Pat Loc: CWM/NO/RHEUMATOLOGY B (Req'g L Img Loc: [facility] 1 Service: Unknown Screen: Patient answered no [facility] JANET BARAKAT [id number] (Case 27 COMPLETE) FOOT 3 OR MORE VIEWS (RIGHT) (RAD Detailed) CPT:57478 Proc Modifiers : RIGHT CPT Modifiers : RT RIGHT SIDE Reason for Study: Evaluate for evid of spondyloarthropathy/erosion (Case 28 COMPLETE) FOOT 3 OR MORE VIEWS(LEFT) (RAD Detailed) CPT:73895 Proc Modifiers : LEFT CPT Modifiers : LT LEFT SIDE Clinical History: Pt with hx of on etanercept. Reports hand swelling Report Status: Verified Date Reported: MAY 10, 2024 Date Verified: MAY 10, 2024 [facility] E-Sig:/ES/ANTONELLA BEARD JR Report: Study: Weight-bearing AP, [...] Primary Interpreting Staff: ANTONELLA BEARD JR, Radiologist ([facility]) /EAD ANTONELLA BEARD JR [facility] May 10, 2024 10:35 AM SPINE LUMBOSACRAL MIN 4 VIEWS: JAYLAN ALVAREZ [id number] -1980 F Exm Date: MAY 10, 2024@10:35 Req Phys: LEANDRA BAEZ V Pat Loc: CWM/NO/RHEUMATOLOGY B (Req'g L Img Loc: [facility] 1 Service: Unknown Screen: Patient answered no [facility] [place] [address] (Case 25 COMPLETE) SPINE LUMBOSACRAL MIN 4 VIEWS (RAD Detailed) CPT:45737 Reason for Study: Evaluate for evid of spondyloarthropathy Clinical History: Pt with hx of on etanercept Report Status: Verified Date Reported: MAY 10, 2024 Date Verified: MAY 10, 2024 [facility] E-Sig:/ES/ANTONELLA BEARD JR Report: Study: AP, left [...] Primary Interpreting Staff: ANTONELLA BEARD JR, Radiologist ([facility]) /ANTONELLA CANO JR [facility] May 10, 2024 10:35 AM SPINE CERVICAL, 4 OR 5 VIEWS: JAYLAN ALVAREZ [id number] -1980 F Exm Date: MAY 10, 2024@10:35 Req Phys: LEANDRA BAEZ V Pat Loc: CWM/NO/RHEUMATOLOGY B (Req'g L Img Loc: [facility] 1 Service: Unknown Screen: Patient answered no [facility] [place] [address] (Case 26 COMPLETE) SPINE CERVICAL, 4 OR 5 VIEWS (RAD Detailed) CPT:39101 Reason for Study: Evaluate for evid of spondyloarthropathy Clinical History: Pt with hx of on etanercept Report Status: Verified Date Reported: MAY 10, 2024 Date Verified: MAY 10, 2024 [facility] E-Sig:/ES/ANTONELLA BEARD JR Report: Study: AP, lateral [...] Primary Interpreting Staff: ANTONELLA BEARD JR, Radiologist ([facility]) /ANTONELLA CANO JR [facility] May 10, 2024 10:34 AM FOOT 3 OR MORE VIEWS (RIGHT): JAYLAN ALVAREZ [id number] -1980 F Exm Date: MAY 10, 2024@10:34 Req Phys: LEANDRA BAEZ V Pat Loc: CWM/NO/RHEUMATOLOGY B (Req'g L Img Loc: [facility] 1 Service: Unknown Screen: Patient answered no [place] [address] (Case 23 COMPLETE) HAND 3 OR MORE VIEWS(LEFT) (RAD Detailed) CPT:12999 Reason for Study: Evaluate for evid of erosion - bilateral exam (Case 24 COMPLETE) HAND3 OR MORE VIEWS(RIGHT) (RAD Detailed) CPT:85572 Clinical History: Pt with hx of on etanercept. Reports foot swelling also hx of kidney stones Report Status: Verified Date Reported: MAY 10, 2024 Date Verified: MAY 10, 2024 [facility] E-Sig:/ES/ANTONELLA BEARD JR Report: Study: AP, [place], [...] Primary Interpreting Staff: ANTONELLA BEARD JR, Radiologist ([facility]) /ANTONELLA CANO JR [facility]
--- OUTSIDE RECORDS SUMMARY | 2024-06-30 14:50 | XMS_ITS ---
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 Coating Machine Operator Name Role Phone TRINH FRANCO [...] Policy Gibson CAREMARK PRESCRIPT ION [facility] Dec 21, 2022 [id number] [phone] Jelani ALVAREZ PATIENT [employer] ([id number]) PRESCRIPT ION GIC Jun 07, 2022 [id number] Jelani ALVAREZ PATIENT [facility] CE ORGANIZAT ION [facility] STATE [facility] Y Jun 07, 2022 [id number] Jelani ALVAREZ PATIENT Selected Encounter This [...] PRIMARY Post-traumatic stress disorder, chronic CAMPONOGARA,SA LIYAH [facility] Plan of Treatment: Future Appointments (+ 6 months) and Future Tests (+/- 45 days) The Plan of Treatment section includes future care activities for the patient from all [place] [facility]. This section includes future appointments and future orders which are active, pending or scheduled. Future Appointments This section includes appointments that were scheduled to occur 6 months from the date of the Encounter, up to a maximum of 20 appointments. The data comes from all [facility]. Appointment Date/Time Appointment Type Appointme nt Facility Name Jul 02, 2024 01:00 PM AMBULATORY [facility] Jul 09, 2024 01:00 PM AMBULATORY PS[facility]CHIATRY [facility] Jul 16, 2024 01:00 PM AMBULATORY [facility] Jul 19, 2024 10:00 AM AMBULATORY [facility] Jul 23, 2024 01:00 PM [facility] Aug 19, 2024 02:00 PM [facility] Active, Pending, and Scheduled Orders This section includes a listing of several types of active, pending, and scheduled orders, including clinic medications orders, diagnostic test orders, procedure orders and consult orders; where the start date of the order is 45 days before the date of the Encounter or 45 days after the date of theEncounter. The data comes from all [facility]. Test Date/Time Test Type Test Details Facility Name May 10, 2024 03:43 PM Consult Order COMMUNITY CARE-UROLOGY Cons School Cook's Choice [facility] Social History: Smoking Status (Most [...] 01:00 PM PR-TOBACCO NEVER U SED CIGARETTES [facility] Tobacco Use History This section includes a history of the smoking, or tobacco-related health factors, that were collected on or before the date of the Encounter. The data comes from the [place] facility where the Encounter took place. Date/Time Smoking Status/Tobacco Use Comment F acility May 14, 2024 01:00 PM VA-TOBACCO NEVER U SED OTHER TYPE [facility] Advance Directives: All historical [...] Mar 25, 2023 ADVANCE DIRECTIVE PETROS MOTLEY [facility] Encounter Notes: All associated encounter notes This section contains the clinical notes associated to the Encounter. Date/Time Encounter Note(s) Provider Source Jun 18, 2024 02:16 PM MENTAL HEALTH TREATMENT PLAN NOTE: LOCAL TITLE: MH TREATMENT PLAN STANDARD TITLE: MENTAL HEALTH TREATMENT PLAN NOTE DATE OF NOTE: JUN 18, 2024@14:16:50 ENTRY DATE: JUN 18, 2024@14:17:12 AUTHOR: ROBERT RODRIGUEZ EXP COSIGNER: URGENCY: STATUS: COMPLETED MH TREATMENT PLAN - May, @ 02:16PM Visit Date: May, @ 13:00 - CWM/NO/VVC/MHC/[facility] not assigned PRESENTING PROBLEM: Hokah presented to [facility] for individual psychotherapy to treat chronic depression [...] Date: 06/18/2025 Anticipated Discharge: 06/17/2025 Discharge Criteria: successfully completed treatment goals [place] utilizes effective coping skills PATIENT ACTION: PATIENT AGREED TO PLAN DISCUSSED. FAMILY ACTION: PATIENT DECLINED FAMILY PARTICIPATION. INTERDISCIPLINARY TEAM: ROBERT RODRIGUEZ: PSYCHOLOGIST COMMUNICATION: Relevant treatment options, including evidence-based interventions, were considered and discussed with the [place]ah. YES A copy of the treatment plan was given to the . YES Risks, benefits, and potential complications were discussed with the [place]. YES /mat/ Robert Rodriguez Psy.DKitty SEXUAL TRAUMA/WOMEN'S PSYCHOLOGIST Signed: 06/18/2024 14:17 ROBERT RODRIGUEZ [place] [facility]TRL [facility] [place] [facility] Jun 18, 2024 02:01 PM MENTAL HEALTH NOTE: LOCAL TITLE: CBT DEPRESSION THERAPY NOTE STANDARD TITLE: MENTAL HEALTH NOTE DATE OF NOTE: JUN 18, 2024@14:01 ENTRY DATE: JUN 18, 2024@14:02 AUTHOR: ROBERT RODRIGUEZ EXP COSIGNER: URGENCY: STATUS: COMPLETED [facility] (VVC) Standard Documentation [facility] Clinician Resources Only: E911 (Emergency Call Relay Center): [phone] National Veterans Crisis Line - 988 then press #1. [facility] Suicide Coordinator [phone], Ext. [phone]; Back-up Ext. [phone] [place] Police, Kassandra HERNANDEZ [phone] Introduction: Visit is being conducted by [employer]. [place]ah identified with 2 identifiers: [X] Full Name [X] Date of [ ] VA ID Card Emergency Plan: [place]ah confirmed and/or provided the following information in case of emergency or technology failure. PATIENT PHONE - PHONE NUMBER [CELLULAR] - Is patient phone number correct, if not, enter below: Hokah's phone number: JAYLAN ALVAREZ [address], [place], [address] 's present location and address for appointment: see chart 's emergency contact name and phone number: see chart Hokah reported that location is private and safe: Yes Informed Consent: informed of the risks and benefits of Telehealth video care. has the right to refuse video services. If refuses video visit, a uaip-qo-nyye visit will be scheduled. H[place]ah verbalized consent for this video visit: Yes H[place]ah provided consent for any other persons present [...] court of law and presented to a criminal court judge), and DOD access for active duty service members. Provided Suicide Prevention Hotline number, and other contact numbers as necessary. [place]ah identified with 2 identifiers: [X] Patient Name [X] Visual recognition COGNITIVE BEHAVIORAL THERAPY FOR DEPRESSION (CBT-D): INITIAL PHASE Time in session (in minutes): 50 SESSION NUMBER: 1 DIAGNOSIS: Primary (focus of treatment): Major Depressive Disorder, Moderate, Recurrent Secondary (if applicable): PTSD, Chronic ASSESSMENT Date Instrument Raw Trans Scale 06/18/2024 12:38 PHQ9 21 PHQ9 03/18/2023 10:12 PHQ9 10 PHQ9 RISK ASSESSMENT: endorsed passive suicidal ideation (i.e,. If something happened to me, I wouldn't mind My kids would be okay if I was gone Nothing matters ) but denied thoughts of killing or harming herself. She denied a history of suicidal intent and behavior (attempts and preparatory behavior). is aware of actions to take if he/she feels unsafe including the use of the VCL ([phone]), 911, walk in services, and urgent care/emergency [...] in today's session. FINAL SUMMARY AND FEEDBACK: Nash reported that she relates to having a negative cognitive triad with particularly negative beliefs about herself (e.g., I am inadequate) and the future (e.g., things will not get better). Nash described feeling frustrated by others at her job and in her personal life who do not put effort into improving themselves or their circumstances. PLAN Next session planned for agreed upon date/time of: 06/25 at 1pm [facility], continue CBT-D /mat/ Robert Rodriguez Psy.D. SEXUAL TRAUMA/WOMEN'S PSYCHOLOGIST Signed: 06/18/2024 14:10 ROBERT RODRIGUEZ PR [facility]TRL [facility] [place] [facility] Jun 18, 2024 12:43 PM MENTAL HEALTH DIAGNOSTIC STUDY NOTE: LOCAL TITLE: MENTAL HEALTH DIAGNOSTIC STUDY STANDARD TITLE: MENTAL HEALTH DIAGNOSTIC STUDY NOTE DATE OF NOTE: JUN 18, 2024@12:43:59 ENTRY DATE: JUN 18, 2024@12:43:59 AUTHOR: ROBERT RODRIGUEZ EXP COSIGNER: URGENCY: STATUS: COMPLETED Assessments were sent to the [place]ah via text/email. These assessments were completed by [...] TRAUMA/WOMEN'S PSYCHOLOGIST Signed: 06/18/2024 14:00 ROBERT RODRIGUEZ [facility]
== END 2024-06-30 15:34 | disposition home or self-care (01) ==
PROVIDERS: PCP Internal Medicine; Visit Provider Nurse Practitioner
DX: K29.60 Other gastritis without bleeding (principal); K21.9 Gastro-esophageal reflux disease without esophagitis
CPT/HCPCS: 99213

== ENCOUNTER 2025-01-27 16:24 | Outpatient (REF) | payer OTHER, SELFPAY ==
--- NOTE | ~2025-01-27 | US_ITS ---
EXAMINATION: US KIDNEY BILATERAL HISTORY: N20.0 - Calculus of kidney TECHNIQUE: Real-time grayscale ultrasound imaging of the kidneys was performed and images were reviewed. COMPARISON: Comparison is made with the prior examination dated 07/11/2022. FINDINGS: Right kidney: The right kidney measures 11.6 x 4.2 x 5.1 cm. Renal parenchymal echotexture and thickness are normal. Again seen is a septated cyst in the interpolar region measuring 1.9 x 1.4 x 1.8 cm. There is a 4 mm nonobstructing calculus at the lower pole. There is no hydronephrosis. Left Kidney: The left kidney measures 10.0 x 4.7 x 5.2 cm. Renal parenchymal echotexture and thickness are normal. There are no masses. There is a nonobstructing calculus at the lower pole measuring 2 mm. There is no hydronephrosis. US/US renal BI IMPRESSION: 1. Bilateral nephrolithiasis as described. 2. 1.9 x 1.4 x 1.8 cm septated right renal cyst. Electronically signed by: Pierce Madison MD 01/28/2025 07:03 AM EDT
--- OUTSIDE RECORDS SUMMARY | 2025-01-27 16:26 | XMS_ITS | Clinical Summary ---
Author Organization [employer] Address [address] [place] [address] [address] [place] [address] Care Team Providers Care Summer Child Caregiver Name Role Phone Unavailable Primary Care Provider Unavailabl e Allergies No known active allergies Medications etanercept (Enbrel) 50 MG/ML injection Inject 1 mL under the skin once a week. 07/23/2021 Active Social History Tobacco Use Types Packs/Day Years Used Date Smoking Tobacco: Never Passive Smoke Exposure: Never Smokeless Tobacco: Never Tobacco Cessation:Counseling Given: Not Answered Comments Unknown Sex and Gender Information Value Date Recorded Sex Assigned at Female 04/22/2022 10:33 AM EDT Legal Sex Female 10:33 AM EDT Gender Identity Female 04/22/2022 10:33 AM EDT Sexual Orientation Straight 06/07/2022 2: 47 PM EST Last Filed Vital Signs Vital Sign Reading Time Taken Comments Blood Pressure 116/70 10/28/2023 10:10 AM EDT Pulse 68 10/28/2023 10:10 AM EDT Temperature - - Respiratory Rate - - Oxygen Saturation - - Inhaled Oxygen Concentration - - Weight - - Height - - Body Mass Index - - Plan of Treatment Health Maintenance Due Date Last Done Comments Depression Screening 1980 HIV Screening 1980 Lipid Panel 1980 SDOH Screening 1980 Disability Screening 1980 Alcohol/Substance Use Screening 1992 Family Planning (PISQ) 10/19/1995 HPV Vaccines (1 - 3-dose series) 10/19/1995 Hepatitis C Screening 1998 DTaP/Tdap/Td Vaccines (1 - Tdap) 10/19/1999 Hepatitis B Vaccines (1 of 3 - 19+ 3-dose series) 10/19/1999 Pap Smear 2001 Cervical Cancer Screening 2010 HPV/Cotest 2010 Mammogram 2020 COVID-19 Vaccine ( - 2023-2 5 season) 2024 Dental X-Ray: Full Mouth 04/26/2024 04/25/2021 Dental Oral Exam 04/30/2024 10/28/2023, 06/07/2022 Dental Prophylaxis 04/30/2024 10/28/2023, 06/07/2022 Tobacco Screening 10/27/2024 10/28/2023 Dental X-Ray: Bitewings 10/28/2024 10/28/19 24, 06/07/2022 Influenza Vaccine (#1) 2025 Zoster Vaccines (1 of 2) 2030 RSV Patients and Patients Aged 60 years or older (1 - 1-dose 75+ series) 10/19/2055 HIB Vaccines Aged Out No longer eligi ble based on patient's age to complete this topic Hepatitis A Vaccines Aged Out No long er eligible based on patient's age to complete this topic IPV Vaccines Aged Out No longer eligi ble based on patient's age to complete this topic Meningococcal B Vaccine Aged Out No l onger eligible based on patient's age to complete this topic Meningococcal Vaccine Aged Out No [employer] eligible based on patient's age to complete this topic Pneumococcal Vaccine: Pediatrics (0 to 5 Years) and At-Risk Patients (6 to 49) Years Aged Out No longer eligible b ased on patient's age to complete this topic RSV under 20 months Aged Out No longe r eligible based on patient's age to complete this topic Rotavirus Vaccines Aged Out No longer eligible based on patient's age to complete this topic Procedures Procedure Name Priority Date/Time Associated Diagnosis Comments PROPHYLAXIS - ADULT Routine 10/28/2023 1 0:00 AM EDT Dental plaque BITEWINGS - 4 RADIOGRAPHIC IMAGES Routine 10/28/2023 10:00 AM EDT Dental plaque PERIODIC ORAL EVALUATION - ESTABLISHED PATIENT Routine 10/28/2023 10:00 AM EDT from Last 3 Months or Most Recently Relevant to Health Maintenance Insurance DENTAL - HSN PARTIAL (MEDICAID) DENTAL - HSN PARTIAL (MEDICAID)
== END 2025-01-27 16:25 | disposition home or self-care (01) ==
LOC: HO.US 16:24
PROVIDERS: PCP Nurse Practitioner Family; Visit Provider Urology
DX: N20.0 Calculus of kidney (principal)
CPT/HCPCS: 76775

== ENCOUNTER → 2025-01-27 16:26 | Outpatient (BNV) | payer OTHER, SELFPAY | PROVIDERS: PCP Nurse Practitioner Family; Visit Provider Radiology Diagnostic Radiology | DX: N20.0 Calculus of kidney (principal); N28.1 Cyst of kidney, acquired | CPT/HCPCS: 76775 ==

== ENCOUNTER 2025-02-16 08:56 | Outpatient (AMB) | payer OTHER, SELFPAY ==
--- OUTSIDE RECORDS SUMMARY | 2024-02-27 09:30 | XMS_ITS | Encounter Summary ---
Author Name [facility] Address [address] [place] [address] Care Team Providers Care Retail Warehouse Associate Name Role Phone TRINH FRANCO Primary Care Provider Unavailmatheus e Insurance Providers: All historical and current Section Date Range: From patient's date of to the date document was created. This section includes the names of all active insurance providers for the patient. Insurance Provider Type of Coverage Plan Name Start of Policy Coverage End of Policy Coverage Group Number Member ID Insurance Provider's Telephone Number Policy Gibson's Name Patient's Relationship to Policy Gibson [employer] ([id number]) PRESCRIPT ION [facility] Jun 07, 2022 [id number] PATIENT Selected Encounter This section includes the information on record at [place] for the Encounter. Date/Time Encounter Type Encounter Description Reason Provider Source Feb 27, 2024 01:30 PM OFFICE O/P EST LOW 20 [facility] - IND ICD-10-CM F34.1 Dysthymic disorder JENNIFER PALUMBO Junior Encounter Template Text not used by [facility] Assessments - Encounter Diagnoses This section includes the primary and secondary diagnoses documented for the Encounter. Date/Time Primary/Secondary Diagnosis Diagnosis Name Provider Source Feb 27, 2024 01:49 PM PRIMARY Dysthymic disorder JENNIFER PALUMBO Plan of Treatment: Future Appointments (+ 6 months) and Future Tests (+/- 45 days) The Plan of Treatment section includes future care activities for the patient [facility] This section includes future appointments and future orders which are active, pending or scheduled. Future Appointments This section includes appointments that were scheduled to occur 6 months from the date of the Encounter, up to a maximum of 20 appointments. The data comes from all [place] treatment facilities. Appointment Date/Time Appointment Type Appointme nt Facility Name Mar 09, 2024 08:45 AM [facility]BULATORY [facility] [place] [facility] Apr 16, 2024 11:00 AM AMBULATORY - PSYCHIATRY [facility] [place] [facility] May 06, 2024 01:00 PM AMBULATORY - MEDICINE [facility] [place] [facility] May 14, 2024 11:00 AM AMBULATORY - PS[facility]CHIATRY [facility] [place] [facility] May 14, 2024 01:00 PM AMBULATORY - PS[facility]CHIATRY [facility] [place] [facility] May 28, 2024 01:00 PM AMBULATORY - PS[facility]CHIATRY [facility] [place] [facility] Jun 11, 2024 01:30 PM AMBULATORY - PSYCHIATRY [facility] [place] [facility] Jun 11, 2024 02:00 PM AMBULATORY - PS[facility]CHIATRY [facility] [place] [facility] Jun 15, 2024 10:45 AM AMBULATORY - MEDICINE [facility] [place] [facility] Jun 18, 2024 01:00 PM AMBULATORY - PSYCHIATRY [facility] [place] [facility] Jul 02, 2024 01:00 PM AMBULATORY - PS[facility]CHIATRY [facility] [place] [facility] Jul 09, 2024 01:00 PM AMBULATORY - PS[facility]CHIATRY [facility] [place] [facility] Jul 16, 2024 01:00 PM AMBULATORY - PSYCHIATRY [facility] [place] [facility] Jul 19, 2024 10:00 AM AMBULATORY - PSYCHIATRY [facility] [place] [facility] Jul 23, 2024 01:00 PM AMBULATORY - PSYCHIATRY [facility] [place] [facility] Jul 30, 2024 01:00 PM AMBULATORY - PSYCHIATRY [facility] [place] [facility] Aug 13, 2024 01:00 PM AMBULATORY - PSYCHIATRY [facility] [place] [facility] Aug 19, 2024 02:00 PM AM[facility]ULATORY [facility] MEDICINE [facility] [place] [facility] Aug 20, 2024 01:00 PM AMBULATORY - PSYCHIATRY [facility] Social History: Smoking Status (Most current) and Tobacco Use (All prior to encounter date) This section includes the most current, and the historical, smoking and tobacco- related health factors from the [place] facility where the Encounter took place. Current Smoking Status This section includes the most current smoking, or tobacco-related health factor, from the [place] facility where the Encounter took place. Date/Time Current Smoking Status Comment Claudia tello Mar 18, 2023 09:00 AM [place]-TOBACCO NEVER USED [place] Advance Directives: All historical and current Section Date Range: From patient's date of to the date document was created. This section includes ALL of a patient's completed or amended [place] Advance and Rescinded Directives. The entries below indicate that a directive exists for the patient, but an actual copy is not included with this document. The data comes from all [place] facilities. Date Advance Directives Provider Source Mar 25, 2023 ADVANCE DIRECTIVE PETROS MOTLEY [facility] Radiology Reports: +/- 30 days of the encounter Radiology Reports For cases when an order for radiology services may have been completed prior to the date of the Encounter, the report list includes the Radiology Reports that were completed up to 30 days before dateof the Encounter. For cases when an order for radiology services may have been completed after the date of the Encounter, the report list also includes the Radiology Reports that were completed up to30 days after date of the Encounter. The data comes from all [place] treatment facilities. Date/Time Radiology Report Provider Source Mar 09, 2024 08:45 AM OUTSIDE MAMMO/SCRE ENING, INCLUDING CAD, BILAT: JAYLAN ALVAREZ [id number] -[phone] F Exm Date: MAR 09, 2024@08:45 Req Phys: TRINH FRANCO Pat Loc: CWM/NO/PACT 5 (Req'g Loc) Img Loc: OUTSIDE GENERAL RADIOLOGY Service: Unknown Screen: Patient is unable to answer or is unsure Screen Comment: cc exam (Case [id number] COMPLETE) OUTSIDE MAMMO/SCREENING, INCLUDIN(RAD Detailed) CPT:29726 Reason for Study: screening Clinical History: Report Status: Electronically Filed Date Reported: MAR 09, 2024 Report: Community care exam; see CPRS/JLV for outside radiology report/results Impression: Community care exam; see CPRS/JLV for outside radiology report/results Primary Diagnostic Code: BI-RADS CATEGORY 2 (Benign) VERIFIED BY: / *ELECTRONICALLY FILED* [facility] [place] [facility] Encounter Notes: All associated encounter notes This section contains the clinical notes associated to the Encounter. Date/Time Encounter Note(s) Provider Source Feb 27, 2024 01:30 PM TELEHEALTH NOTE: LOCAL TITLE: [place] [facility] PSYCHIATRIST NOTE STANDARD TITLE: TELEHEALTH NOTE DATE OF NOTE: FEB 27, 2024@13:30 ENTRY DATE: FEB 27, 2024@13:31:06 AUTHOR: JENNIFER PALUMBO COSIGNER: URGENCY: STATUS: COMPLETED Dynamics Direct Connect (VVC) Standard Documentation VVC Clinician Resources Only: E911 (Emergency Call Relay Center): [phone] National Veterans Crisis Line - 988 then press #1. [facility] Suicide Coordinator [phone], Ext. [phone]; Back-up Ext. [phone] [place] Police, Kassandra HERNANDEZ [phone] Introduction: Visit is being conducted by [place] [facility]. [place] identified with 2 identifiers: [X] Full Name [X] Date of [ ] [place] ID Card Emergency Plan: [place] confirmed and/or provided the following information in case of emergency or technology failure. PATIENT PHONE - PHONE NUMBER [CELLULAR] - Is patient phone number correct, if not, enter below: 's phone number: JAYLAN ALVAREZ [address], [place], [address] [place]'s present location and address for appointment: same as above [place]'s emergency contact name and phone number: unchanged reported that location is private and safe: Yes Informed Consent: [place] informed of the risks and benefits of Telehealth video care. [place] has the right to refuse video services. If refuses video visit, a [id number] visit will be scheduled. [place] verbalized consent for this video visit: Yes [place] provided consent for any other persons present for visit: N/A If yes, who and relationship to patient: Secure visit: Visit was locked for security and privacy:Yes CHART REVIEW: seen for initial MH Consult 03/18/23 noting: Nash is a [address] [facility] , [facility] and presenting for mental health due to frequent tearfulness. She presents with with depression and also screens positive for PTSD due to her job, which was in [employer] services in [facility] and reports that this, along with seeing people not come back was difficult and stays with her. This should be further assessed to determine the presence of PTSD but PCL5 does suggest the possibility of this (score of 47). Other factors that increase her stress include caring for her 18 year old son who has autism and her guilt over asking her 13 year old daughter to help her brother with many different things since she is a single, working mother. She also mentions being affected by the relationship she's currently in with a man she's been seeing for the past 4 years but who comes in and out of her life, sometimes on a weekly basis, so she has no security in the stability of this relationship and admits that this has greatly impacted her mood/tearfulness. Nash is interested in and would benefit from and is interested individual psychotherapy (such as CBT for depression or possibly an EBP for PTSD) and psychiatric care. PHQ-9 Depression Scale Score: 10 1. Little interest or pleasure in doing things Nearly every day 2. Feeling down, depressed, or hopeless Several days 3. Trouble falling or staying asleep, or sleeping too much More than half the days 4. Feeling tired or having little energy Several days 5. Poor appetite or overeating Not at all 6. Feeling bad about yourself or that you are a failure or have let yourself or your family down Several days 7. Trouble concentrating on things, such as reading the newspaper or watching television Several days 8. Moving or speaking so slowly that other people could have noticed. Or the opposite being so fidgety or restless that you have been moving around a lot more than usual Several days 9. Thoughts that you would be better off or of hurting yourself in some way Not at all 10. If you checked off any problems, how DIFFICULT have these problems made It for you to do your work, take care of things at home or get along with other people? Somewhat difficult PRESENTATION AT TIME OF INITIAL VISIT WITH MYSELF 04/29/23: reports no prior MH treatment. She states she has been feeling depressed as long as I can remember since her teens. States I get emotional easily, I can start crying all the sudden . She states she tries to occupy her time to make me feel there's some kind of purpose. If I don't there's no purpose. I always feel I need to accomplish something. I turn to the fitness world. I went to the b/c there was no plan for me. When not occupied the less I want to do, I isolate. There's an emptiness. It creates a loneliness . Family lacked communication, denies any specific circumstance . Triggers for crying thoughts of someone not being there. My grandmother 2 weeks ago. Then I think about my kids having to deal with that. The thoughts about not being there . Mostly can settle herself down after a few minutes. However depression remains in the background affects every aspect of your life . She states her children see her as a strong person, this isn't something I want them to deal with . Also experiences a sense of disconnect from her partner, an ex-Marine who is fearful of closeness. PSYCHIATRIC HISTORY: Hospitalizations: Patient denies. Suicide Attempts: Patient denies Violence: denies Depressive Episodes: chronic, may go for up to a couple of weeks when not present Manic episodes: denies; hx exercising 5 hours/day ([employer], [place] [employer]) plus a 5 mile hike, daily for as long as I can remember , in 2010 did body building x 3 years; body image I'm happy with how I am Trauma Hx/Symptoms: memories of mortuary affairs every couple of days Outpatient Treatment: none Past Medication Trials: none CURRENT MEDICATIONS: none SUBSTANCE USE HISTORY: Alcohol: a drink or two per month Drugs: none Tobacco: ( x )none; ( ) + use: ppd; ( ) tobacco cessation intervention provided REVIEW OF SYSTEMS A focused review of systems was performed, which noted chronic pain PMH: RA on Enbrel injections weekly; no BC (BF had vasectomy) ALL: NKDA FAMILY PSYCHIATRIC HISTORY: negative SOCIAL STATUS: has full custody of 2 children ages 13 and 18 year old, (18 year old with autism) HISTORY: Joined at age 17 in Jun, 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 [place] guards[employer]. She built a good group of friends who she stayed in touch with for a long time. 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 She was working in [employer] in [facility], in Jul 2002 and saw a lot of bodies as a result of that and friends that didn't come home. Is planning to pursue a claim about possible link between her RA and the anthrax vaccine. 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 She is open to trying an SSRI for mood. Will begin on Lexapro 10mg daily. NOTED AT LAST OP VISIT: partial improvement seen since starting Lexapro but this is offset by ongoing c/o fatigue since starting the medication. We agreed to taper off this (cut to 5mg daily) and start on Wellbutrin 150mg daily increase to 300mg daily. PRESENTING SYMPTOMS AND CONDITION ON TODAY'S VISIT: reports the Lexapro was more effective, it was putting me to sleep ; Wellbutrin I didn't find it as effective but was only on the higher dose for a couple of weeks while on it heart rate didn't go down lower than the 80s. REVIEW OF SYSTEMS MENTAL HEALTH: SLEEP: good MOOD: moods up and down , down a couple of days, don't want to deal with anyone, upset and crying, then I'm OK again for a week or so PTSD symptoms: denied ANXIETY: Feeling overwhelmed. Anxiety comes first, then the depression ANGER/IRRITABILITY/AGGRESSION: Denies SUBSTANCE USE: Alcohol: rare Illegal/non-prescribed drugs: denies TOBACCO: Non-smoker RAJIV/HYPOMANIA: None evident PSYCHOTIC FEATURES: None evident Suicidal Thoughts/Intent/plan: denied Social Status/ Stressors: new house (Apr 2023), work CURRENT PSYCH meds: none ADVERSE EFFECTS: n/a MED REC: on new meds for GI and allergies (in CPRS) MENTAL STATUS EXAMINATION - Appearance and behavior: Appears stated age, appropriately groomed and dressed, pleasant and cooperative - Speech and language: without impairment of rate, rhythm, inflection, volume, or fluency, without latency - Mood: as noted above - Affect: without lability or agitation, mildly constricted - Thought Process: Linear, logical; no loosening of associations or FOI - Thought Content: without delusions (paranoia, thought broadcasting, thought withdrawal, thought insertion, ideas of reference) - Perceptions: Denies auditory and visual hallucinations - IMPULSES/HARM: - Self-harm: denied - Harm to others: denied - Cognition: No noted impairment - Insight: no impairment evident - Judgment: no impairment evident NARRATIVE SUMMARY OF CURRENT CONDITION AND OVERALL PROGRESS TOWARD TREATMENT GOALS: best improvement seen was on Lexapro 10mg but was too sedating (less so at 5mg daily) vs Wellbutrin. Reviewing options she would like to try 5mg dose again, take QHS vs trying a different agent. i. Severity of Illness: ()none (x)mild (x )moderately ill ()severely ill ()very severely ill ii. Global Improvement: ()very much ( )much ( )min (x)none ()min worse ()much worse ()very much worse iii. RISK ASSESSEMENT: currently (x) no evidence of acute risk, no increase in risk factors () elevated based on: () acute risk noted but agrees to Safety Plan: () acute risk noted, emergency plan implemented INTERVENTION: -THERAPY: at least 16 minutes spend in individual counseling discussing psychological issues, coping strategies, current stressors -SOMATIC: reviewed and discussed medication options: risks, side effects alternatives understood and accepted; answered patient questions PLAN OF CARE/ RECOMMENDATIONS: 1. Recommended and discussed the following medications changes: as noted above 2. Tests or specialist referrals recommended, or old records desired, if any: none 3. Medical Necessity/ Psychiatric treatment goals for future visits: ( x) Sustain improvement ( x) Gain improvement toward remission ( x) Prevent decline in functioning ( x) Prevent hospitalization 4. Considered referral to psychotherapy program for any counseling needs: n/a 5. Considered referral to inpatient/IOP care: n/a 6. Considered referral nutrition program for any lifestyle/dietary needs: n/a 7. Follow-up plans; patient is scheduled for a follow-up appointment with myself in: 6 weeks, sooner if needed Additional Follow-Up instructions: 1. Reinforced: If urgent treatment is needed, call [phone] or go to the nearest Emergency Room 2. To schedule or change an appointment, inquire about medication refills, etc: call office number during normal office hours Suicide Screen: C-SSRS Screening [place]-Suicide Severity Rating Scale (C-SSRS Screener) 1. Over the past month, have you wished you were or wished you could go to sleep and not wake up? Yes 2. Over the past month, have you had any actual thoughts of killing yourself? No 3. Over the past month, have you been thinking about how you might do this? Response not required due to responses to other questions. 4. Over the past month, have you had these thoughts and had some intention of acting on them? Response not required due to responses to other questions. 5. Over the past month, have you started to work out or worked out the details of how to kill yourself? Response not required due to responses to other questions. 6. If yes, at any time in the past month did you intend to carry out this plan? Response not required due to responses to other questions. 7. In your lifetime, have you ever done anything, started to do anything, or prepared to do anything to end your life (for example, collected pills, obtained a gun, gave away valuables, went to the roof but didn't jump)? No 8. If YES, was this within the past 3 months? Response not required due to responses to other questions. /mat/ JENNIFER PALUMBO M.D. Signed: 02/27/2024 13:50 JENNIFER PALUMBO
--- OUTSIDE RECORDS SUMMARY | 2024-02-27 09:58 | XMS_ITS | Encounter Summary ---
Author Name [facility] Address [address] [place] [address] Care Team Providers Care Detonator Assembler Name Role Phone TRINH FRANCO Primary Care Provider Unavailabl e Insurance Providers: All historical and current [...] Patient's Relationship to Policy [employer] ([id number]) PRESCRIPT ION [facility] Jun 07, 2022 [id number] [phone] Jealni ALVAREZ PATIENT Selected Encounter This section includes the information on record at [place] for the Encounter. Date/Time Encounter Type Encounter Description Reason Provider Source Feb 27, 2024 01:58 PM QNHP OL DIG ASSMT&MGMT 11-20 CLINICAL PHARMACY ICD-10-CM J30.9 Allergic rhinitis, unspecified [facility] IHE Encounter Template Text not used by [place] Assessments - Encounter Diagnoses This section includes the primary and secondary diagnoses documented for the Encounter. Date/Time Primary/Secondary Diagnosis Diagnosis Name Provider Source Feb 27, 2024 02:30 PM PRIMARY Allergic rhinitis, unspecified WHEELER,QUE N [facility] ([id number]) Plan of Treatment: Future Appointments (+ 6 months) and Future Tests (+/- 45 days) The Plan of Treatment section includes future care activities for the patient [facility] This section includes future appointments and future orders which are active, pending or scheduled. Future Appointments This section includes appointments that were scheduled to occur 6 months from the date of the Encounter, up to a maximum of 20 appointments. The data comes from all [place] treatment facilities. Appointment Date/Time Appointment Type Appointme nt Facility Name Mar 09, 2024 08:45 AM AMBULATORY [facility] Apr 16, 2024 11:00 AM AMBULATORY - PSYCHIATRY [facility] May 06, 2024 01:00 PM AMBULATORY - MEDICINE [facility] [place] May 14, 2024 11:00 AM AMBULATORY - PS[facility]CHIATRY [facility] May 14, 2024 01:00 PM AMBULATORY - PS[facility]CHIATRY [facility] May 28, 2024 01:00 PM AMBULATORY - PS[facility]CHIATRY [facility] Jun 11, 2024 01:30 PM AMBULATORY - PS[facility]CHIATRY [facility] Jun 11, 2024 02:00 PM AMBULATORY - PS[facility]CHIATRY [facility] Jun 15, 2024 10:45 AM AMBULATORY - MEDICINE [facility] Jun 18, 2024 01:00 PM AMBULATORY - PS[facility]CHIATRY [facility] Jul 02, 2024 01:00 PM AMBULATORY - PS[facility]CHIATRY [facility] Jul 09, 2024 01:00 PM AMBULATORY - PSYCHIATRY [facility] Jul 16, 2024 01:00 PM AMBULATORY - PS[facility]CHIATRY [facility] Jul 19, 2024 10:00 AM AMBULATORY - PS[facility]CHIATRY [facility] Jul 23, 2024 01:00 PM AMBULATORY - PS[facility]CHIATRY [facility] [place] Jul 30, 2024 01:00 PM AMBULATORY - PSYCHIATRY [facility] Aug 13, 2024 01:00 PM AMBULATORY - PS[facility]CHIATRY [facility] Aug 19, 2024 02:00 PM AM[facility]ULATORY - [facility]IC[facility] Aug 20, 2024 01:00 PM AMBULATORY - PSYCHIATRY [facility] Advance Directives: All historical and current Section Date Range: From patient's date of to the date document was created. This section includes ALL of a patient's completed or amended [place] Advance and Rescinded Directives. The entries below indicate that a directive exists for the patient, but an actual copy is not included with this document. The data comes from all [place] facilities. Date Advance Directives Provider Source Mar 25, 2023 ADVANCE DIRECTIVE [facility] Rad[facility] Reports: +/- 30 days of the [...] the Encounter. The data comes from all [place] treatment facilities. Date/Time Radiology Report Provider Source Mar 09, 2024 08:45 AM OUTSIDE MAMMO/SCRE ENING, INCLUDING CAD, BILAT: JAYLAN ALVAREZ [id number] -1980 F Exm Date: MAR 09, 2024@08:45 Req Phys: TRINH FRANCO Pat Loc: C[facility]/NO/PACT 5 (Req'g Loc) Img Loc: OUTSIDE GENERAL RADIOLOGY Service: Unknown Screen: Patient is unable to answer or is unsure Screen Comment: cc exam (Case [id number] COMPLETE) OUTSIDE MAMMO/SCREENING, INCLUDIN(RAD Detailed) CPT:79690 Reason for Study: screening Clinical History: Report Status: Electronically Filed Date Reported: MAR 09, 2024 Report: Community care exam; see CPRS/JLV for outside radiology report/results Impression: Community care exam; see CPRS/JLV for outside radiology report/results Primary Diagnostic Code: BI-RADS CATEGORY 2 (Benign) VERIFIED BY: / *ELECTRONICALLY FILED* [facility] Encounter Notes: All associated encounter notes This section contains the clinical notes associated to the Encounter. Date/Time Encounter Note(s) Provider Source Feb 27, 2024 01:58 PM PHARMACY OUTPATIEN T MEDICATION MGT NOTE: LOCAL TITLE: [facility] PRESCRIPTION NOTE STANDARD TITLE: PHARMACY OUTPATIENT MEDICATION MGT NOTE DATE OF NOTE: FEB 27, 2024@13:58 ENTRY DATE: FEB 27, 2024@13:58:33 AUTHOR: LINNEA WHEELER EXP COSIGNER: URGENCY: STATUS: COMPLETED [place] was approved for community care [facility] [id number] option 3 Tax ID: [id number] GROUP Referral Number: [id number] Priority: Routine Referral Issue Date: 2024-01-19 Expiration Date: 2025-01-27 First Appointment Date: 2024-01-28 Received prescription for the following: eRx Drug : cromolyn 100 mg/5 mL oral concentrate eRx SIG : 100mg (1 amp) po BID,may increase to TID if needed Drug Form: Strength: Qty Qualifier: Original Quantity Qty Unit of Measure: MILLILITER Qty: 300 Days Supply: 30 Refills: 6 Substitutions: YES THE ABOVE MEDICATION(S) ARE NON-FORMULARY NON-VA PRESCRIPTION DETAILS Medical history relevant to this request: - Per 12/18/23 Office visit note: CC: the patient/guardian complains of allergic rhinitis, pruritus, and urticaria HPI: pt here for environmental testing for c/o hives and itching that breaks out w/o known trigger, no hive noted today, she also has bloating, gas, and vomiting sometimes. - P: isaías 180mg daily; Zyrtec 10mg at bedtime; Senismist 2 sprays each nostril daily, Cromolyn 1 vial in water twice a day. Follow up for food testing . - Per 02/17/24 Office visit note: Jaylan here for food testing for some GI symptoms, has not started Cromolyn as insurance would not pay for it, no distress noted during visit, previous record reviewed. + Current med list: allergra 180mg daily, Cromolyn 100mg/5ml oral conc, 1 vial in 8oz water BID may increase TID (not taking); Enbrel 50mg/ml weekly + Plan: isaías 180mg daily; Zyrtec 10mg at bedtime; Senismist 2 sprays each nostril daily, Cromolyn 1 vial in water twice a day ACTION TAKEN/STATUS OF NON-VA RX: [+] Initiate request for Non-formulary or Prior Authorization medication ( ) Contacted provider's office to consider a formulary therapeutic alternative ( ) Contacted provider's office for additional necessary information to review PA & N/F ( ) Requested PA & NF to be reviewed by Clinical Pharmacist Specialist ( ) Medication approved (+) Medication does not meet criteria and therapeutic alternative suggested PLEASE FAX TO CC OFFICE RE: Jaylan Alvarez (1980) From 02/17/24 office note, it is unclear if patient had tried Zyrtec 10mg at bedtime. It is also unclear if patient was found to be hypersensitive to any of the food. All the scores were listed as 0+. Of note, patient is on Enbrel 50mg weekly, unclear exactly when pt started this medication. Common side effects for Engrel include skin rash (1%-13%); diarrhea (3%-16%); pruritus (2%-5%); urticaria (1%-2%). Has patient tried to hold Enbrel or try a different medication to see if urticaria/GI adrs would resolve? Please provide any addition information regarding the use of Zyrtec 10mg as well as temporarily holding of Enbrel before Cromolyn conc. can be considered. Time Spent: 30 MIN /mat/ LINNEA WHEELER PHARMD CLINICAL DIRECTOR [facility] Signed: 02/27/2024 14:30 Receipt Acknowledged By: 02/27/2024 15:24 /mat/ PERLA ARANDA Assembly Detailer LINNEA WHEELER [facility] ([id number])
--- OUTSIDE RECORDS SUMMARY | 2024-04-16 07:00 | XMS_ITS | Encounter Summary ---
Author Name [facility] [place] [facility] [place] [facility] [place] Address [address] [place] [address] Care Team Providers Care Training Engineer Name Role Phone TRINH FRANCO Primary Care [...] Patient's Relationship to Policy [facility] [employer] ([id number]) PRESCRIPT ION [facility] Jun 07, 2022 [id number] ALVAREZ PATIENT Selected Encounter This section includes the information on record at [place] for the Encounter. Date/Time Encounter Type Encounter Description Reason Provider Source Apr 16, 2024 11:00 AM OFFICE O/P EST MOD 30 MIN [facility] - IND ICD-10-CM F34.1 Dysthymic disorder JENNIFER PALUMBO Junior Encounter Template Text not used by VA Assessments - Encounter Diagnoses This section includes the primary and secondary diagnoses documented for the Encounter. Date/Time Primary/Secondary Diagnosis Diagnosis Name Provider Source Apr 16, 2024 11:15 AM PRIMARY Dysthymic disorder JENNIFER PALUMBO Plan of Treatment: Future Appointments (+ 6 months) and Future Tests (+/- 45 days) The Plan of Treatment section includes future care activities for the patient from all VA treatmentfaunc healthities. This section includes future appointments and future orders which are active, pending or scheduled. Future Appointments This section includes appointments that were scheduled to occur 6 months from the date of the Encounter, up to a maximum of 20 appointments. The data comes from all [place] treatment facilities. Appointment Date/Time Appointment Type Appointme nt Facility Name May 06, 2024 01:00 PM AMBULATORY [facility]ICINE [facility] [place] [facility] May 14, 2024 11:00 AM AMBULATORY - PSYCHIATRY [facility] [place] [facility] May 14, 2024 01:00 PM AMBULATORY - PSYCHIATRY [facility] [place] [facility] May 28, 2024 01:00 PM AMBULATORY - PSYCHIATRY [facility] [place] [facility] Jun 11, 2024 01:30 PM AMBULATORY - PSYCHIATRY [facility] [place] [facility] Jun 11, 2024 02:00 PM AMBULATORY - PSYCHIATRY [facility] [place] [facility] Jun 15, 2024 10:45 AM AMBULATORY - MEDICINE [facility] [place] [facility] Jun 18, 2024 01:00 PM AMBULATORY - PSYCHIATRY [facility] [place] [facility] Jul 02, 2024 01:00 PM AMBULATORY - PSYCHIATRY [facility] [place] [facility] Jul 09, 2024 01:00 PM AMBULATORY - PSYCHIATRY [facility] [place] [facility] Jul 16, 2024 01:00 PM AMBULATORY - PSYCHIATRY [facility] [place] [facility] Jul 19, 2024 10:00 AM AMBULATORY - PSYCHIATRY [facility] [place] [facility] Jul 23, 2024 01:00 PM AMBULATORY - PSYCHIATRY [facility] [place] [facility] Jul 30, 2024 01:00 PM AMBULATORY - PSYCHIATRY [facility] [place] [facility] Aug 13, 2024 01:00 PM AMBULATORY - PSYCHIATRY [facility] [place] [facility] Aug 19, 2024 02:00 PM AMBULATORY - MEDICINE [facility] [place] [facility] Aug 20, 2024 01:00 PM AMBULATORY - PSYCHIATRY [facility] [place] [facility] Aug 27, 2024 01:00 PM AMBULATORY [facility]RY [facility] [place] [facility] Sep 10, 2024 01:00 PM AMBULATORY - PSYCHIATRY [facility] Sep 16, 2024 09:00 AM AMBULATORY - MEDICINE [facility] Lab Results: +/- 30 days of the encounter This section includes the Chemistry and Hematology Lab Results on record with VA for the patient. Radiology Reports and Pathology Reports are provided separately, in subsequent sections. Lab Results This section contains the Chemistry/Hematology Results that were resulted 30 days before or 30 daysafter the date of the Encounter. Date/Time Source Result Type Result - Unit Interpretation Reference Range Specimen Type Comment May 10, 2024 08:51 AM [facility] HLA-B27 (QU) BLOOD Specimen Type: BLOOD Comment: normalcy status - Abnormal Test Performed by [employer], [facility], [address] [place] [address] Rodger Bender M.D., Ph.D., Director of Laboratories , [facility] [id number] TEST PERFORMED AT: , Ordering Provider: LEANDRA BAEZ V Report Released Date/Time: May 06, 2024 01:47 PM Reporting Lab: [facility] [address] [facility] [address] Performing Lab: [facility] [address] [address] HLA-B27 Positive Negative May 10, 2024 08:51 AM [facility] T-SPOT TB PANEL BLOOD Specimen Type: BLOOD Comment: A negative test result does not exclude the possibility of exposure to or infection with Mycobacterium tuberculosis (M. tuberculosis). Patients with recent exposure to TB infected individuals exhibiting a negative T-SPOT.TB result should be considered for retesting within 6 weeks or if other relevant clinical symptoms indicate. Results from T-SPOT.TB testing must be used in conjunction with each individual's epidemiological history, current medical status, and results of other diagnostic evaluations. The T-SPOT.TB test is qualitative and results are reported as positive, borderline, or negative, given that the test controls perform as expected. In line with the Centers for Disease Control and Prevention's 2010 recommendation to report quantitative measurements alongside the qualitative result, the laboratory provides spot counts for informational purposes only. The T-SPOT.TB test should not be interpreted as a quantitative test. For additional information, please refer to http://education.[employer]/faq/FAQ21 5 (This link is being provided for informational/ educational purposes only.) Test Performed by [facility], [employer] [facility], [address] [place] [address] Rodger Bender M.D., Ph.D., Director of Laboratories , [place] [id number] TEST PERFORMED AT: , Ordering Provider: LEANDRA BAEZ V Report Released Date/Time: May 06, 2024 01:47 PM Reporting Lab: [address] [address] Performing Lab: [facility] [address] [address] [id number] (o) Negative Negative T-SPOT-PNLA 0 T-SPOT-PNLB 2 [id number] Passed [id number] Passed May 10, 2024 08:51 AM [facility] JOSEPH SCREEN/TITER SERUM Specimen Type: SERUM No comment entered. Ordering Provider: LEANDRA BAEZ V Report Released Date/Time: May 06, 2024 01:47 PM Reporting Lab: [facility] [address] [facility] [address] Performing Lab: [facility] [address] [facility] [address] JOSEPH SCREEN NEG NEG <1:40 May 10, 2024 08:51 AM [facility] HEPATITIS B SURFACE ANTIBODY (HBsAb)-WH SERUM Specimen Type: SERUM Comment: Hep B Core, Total: This test detects both IgG and IgM antibodies. A nonreactive final interpretation indicates that anti-HBc antibodies were not detected in the sample. Hep B Surface Ab: A 'Reactive' result indicates HBsAb results >/= 12.0 mIU/mL and immunity to HBV infection. This test detects both IgG and IgM antibodies. A Reactive result ( Positive prior to 04/05/13) may indicate either current or previous hepatitis B infection. Antibodies to Hepatitis B Core may be the only marker of recent hepatitis B infection during the window period when Hepatitis B surface antigen has disappeared and Hepatitis B surface antibodies are not yet detectable. Ordering Provider: LEANDRA BAEZ V Report Released Date/Time: May 06, 2024 01:47 PM Reporting Lab: [address] [address] Performing Lab: [address] [address] HBsAb REACTIVE Non Reactive May 10, 2024 08:51 AM [facility] HEPATITIS B CORE (Total) Ab SERUM Specimen Ty pe: SERUM Comment: Hep B Core, Total: This test detects both IgG and IgM antibodies. A nonreactive final interpretation indicates that anti-HBc antibodies were not detected in the sample. Hep B Surface Ab: A 'Reactive' result indicates HBsAb results >/= 12.0 mIU/mL and immunity to HBV infection. This test detects both IgG and IgM antibodies. A Reactive result ( Positive prior to 04/05/13) may indicate either current or previous hepatitis B infection. Antibodies to Hepatitis B Core may be the only marker of recent hepatitis B infection during the window period when Hepatitis B surface antigen has disappeared and Hepatitis B surface antibodies are not yet detectable. Ordering Provider: LEANDRA BAEZ V Report Released Date/Time: May 06, 2024 01:47 PM Reporting Lab: [address] [address] Performing Lab: [address] [address] HEPATITIS B CORE (Total) Ab Non Reactive Non Reactive May 10, 2024 08:51 AM [facility] HEPATITIS C ANTIBODY (HCV)-ARC SERUM Specimen Type: SERUM Comment: Hep C Ab: No HCV antibody detected. If recent infection is suspected or other evidence suggests HCV infection, consider HCV nucleic acid testing Ordering Provider: LEANDRA BAEZ V Report Released Date/Time: May 06, 2024 01:47 PM Reporting [facility]: [facility] [address] [facility] [address] Performing [facility]: [facility] [address] [address] HEPATITIS C ANTIBODY NON-REACTIVE NON-RE ACTIVE May 10, 2024 08:51 AM [facility] CBC BLOOD Specimen Type: BLOOD No comment entered. Ordering Provider: LEANDRA BAEZ V Report Released Date/Time: May 06, 2024 01:47 PM Reporting Lab: [facility] [address] [facility] [address] Performing Lab: [facility] [address] [address] WBC 5.62 10*3/uL 4.50-11.00 RBC 3.76 10*6/uL L 3.93-5.16 HGB 12.3 g/dL 12-15.2 HCT 35.8 L 36.6-45.6 MCV 95.2 fL 82-99 MCHC 34.4 g/dL 30.8-35.1 PLT 322 10*3/uL 140-360 RDW-CV 11.8 L 12.0-16.0 MCH 32.7 pg H 26.2-32.6 May 10, 2024 08:51 AM [facility] LIVER FUNCTION SERUM Specimen Type: SERUM No comment entered. Ordering Provider: LEANDRA BAEZ V Report Released Date/Time: May 06, 2024 01:47 PM Reporting Lab: [address] [address] Performing Lab: [address] [address] PROTEIN,TOTAL 6.3 g/dL 6.0-8.3 ALBUMIN 3.5 g/dL 3.5-5.0 ALKALINE PHOSPHATASE 46 U/L 40-150 AST 14 U/L 5-34 ALT 11 U/L BILIRUBIN, TOTAL 0.4 mg/dL 0.2-1.2 May 10, 2024 08:51 AM [facility] URIC ACID SERUM Specimen Type: SERUM No comment entered. Ordering Provider: LEANDRA BAEZ V Report Released Date/Time: May 06, 2024 01:47 PM Reporting Lab[facility] [address] [address] Performing Lab: [facility] [address] [facility] [address] URIC ACID 4.4 mg/dL 2.6-6 May 10, 2024 08:51 AM [facility] TSH SERUM Specimen Type: SERUM No comment entered. Ordering Provider: LEANDRA BAEZ V Report Released Date/Time: May 06, 2024 01:47 PM Reporting Lab: [facility] [address] [address] Performing Lab: [facility] [address] [address] TSH 1.38 u[IU]/mL 0.35-5.00 May 10, 2024 08:51 AM [facility] PO4 SERUM Specimen Type: SERUM No comment entered. Ordering Provider: LEANDRA BAEZ V Report Released Date/Time: May 06, 2024 01:47 PM Reporting Lab: [facility] [address] [address] Performing Lab: [facility] [address] PO4 4.0 mg/dL 2.5-5.0 May 10, 2024 08:51 AM [facility] BASIC METABOLIC PANEL (non-fasting) SERUM Spe cimen Type: SERUM No comment entered. Ordering Provider: LEANDRA BAEZ V Report Released Date/Time: May 06, 2024 01:47 PM Reporting Lab: [facility] [address] Performing [facility]: [facility] [address] [address] UREA NITROGEN 20 mg/dL 7-25 GLUCOSE 83 mg/dL 65-100 SODIUM 136 mmol/L 135-145 POTASSIUM 4.4 mmol/L 3.5-5.0 CHLORIDE 107 mmol/L 100-110 CO2 21 meq/L 20-30 CREATININE, Serum 0.75 mg/dL 0.50-1.40 eGFR(CKD-EPI 2020) >90 mL/min >60 Social History: Smoking Status (Most current) and Tobacco Use (All prior to encounter date) This section includes the most current, and the historical, smoking and tobacco- related health factors from the [place] facility where the Encounter took place. Current Smoking Status This section includes the most current smoking, or tobacco-related health factor, from the [place] facility where the Encounter took place. Date/Time Current Smoking Status Comment Facil ity Mar 18, 2023 09:00 AM [place]-TOBACCO NEVER USED [place] Advance Directives: All historical and current Section Date Range: From patient's date of to the date document was created. This section includes ALL of a patient's completed or amended [place] Advance and Rescinded Directives. The entries below indicate that a directive exists for the patient, but an actual copy is not included with this document. The data comes from all [place] facilities. Date Advance Directives Provider Source Mar 25, 2023 ADVANCE DIRECTIVE PETROS MOTLEY [facility] Radiology Reports: +/- 30 days of [...] the Encounter. The data comes from all [place] treatment facilities. Date/Time Radiology Report Provider Source May 10, 2024 10:36 AM HAND 3 OR MORE VIEWS: JAYLAN ALVAREZ Zhou [id number] -1980 F Exm Date: MAY 10, 2024@10:36 Req Phys: LEANDRA BAEZ V Pat Loc: CWM/NO/RHEUMATOLOGY B (Req'g L Img Loc: [facility] 1 Service: Unknown Screen: Patient answered no [facility] [place] [facility] [place] [address] (Case 27 COMPLETE) FOOT 3 OR MORE VIEWS (RIGHT) (RAD Detailed) CPT:29126 Proc Modifiers : RIGHT CPT Modifiers : RT RIGHT SIDE Reason for Study: Evaluate for evid of spondyloarthropathy/erosion (Case 28 COMPLETE) FOOT 3 OR MORE VIEWS(LEFT) (RAD Detailed) CPT:05309 Proc Modifiers : LEFT CPT Modifiers : LT LEFT SIDE Clinical History: Pt with hx of on etanercept. Reports hand swelling Report Status: Verified Date Reported: MAY 10, 2024 Date Verified: MAY 10, 2024 Broacher E-Sig:/ES/ANTONELLA BEARD JR Report: Study: Weight-bearing AP, lateral, and oblique views of the left and right feet. Comparison: None. Findings: The soft tissues appear normal with no soft tissue swelling, calcifications or radiopaque foreign body identified. The bony mineralization is normal. There is no bony fracture, dislocation or subluxation. The plantar arch is maintained bilaterally. No calcaneal spurs are identified. Mild hallux valgus deformity bilaterally with adjacent medial bunions. The foot joint spaces are normal and well-maintained. No joint space erosions are identified. No acute bony abnormality is seen. Impression: Hallux valgus with no arthropathy identified, as described above. Primary Diagnostic Code: No immediate attention required Primary Interpreting Staff: ANTONELLA BEARD JR, Radiologist (Broacher) /EAD ANTONELLA BEARD JR [facility] May 10, 2024 10:35 AM SPINE LUMBOSACRAL MIN 4 VIEWS: JAYLAN ALVAREZ [id number] -1980 F Exm Date: MAY 10, 2024@10:35 Req Phys: LEANDRA BAEZ V Pat Loc: CWM/NO/RHEUMATOLOGY B (Req'g L Img Loc: [facility] 1 Service: Unknown Screen: Patient answered no [facility] [place] [address] (Case 25 COMPLETE) SPINE LUMBOSACRAL MIN 4 VIEWS (RAD Detailed) CPT:66565 Reason for Study: Evaluate for evid of spondyloarthropathy Clinical History: Pt with hx of on etanercept Report Status: Verified Date Reported: MAY 10, 2024 Date Verified: MAY 10, 2024 Broacher E-Sig:/ES/ANTONELLA BEARD JR Report: Study: AP, left and right oblique, and lateral views of the lumbar spine. COMPARISON: None. FINDINGS: There are 5 lumbar type vertebral bodies identified. No pars interarticularis defects are identified. There is no radiographic evidence of ankylosing spondylitis. The lumbar spine intervertebral disc spaces are normal. The lumbar spine alignment is normal. The vertebral body heights are normal. The bony mineralization is normal. The sacroiliac joints are normal for age. The paraspinal soft tissues appear normal. Impression: No focal abnormality identified, as described above. Primary Diagnostic Code: No immediate attention required Primary Interpreting Staff: ANTONELLA BEARD JR, Radiologist (Broacher) /ANTONELLA CANO JR [facility]ROC[facility] May 10, 2024 10:35 AM SPINE CERVICAL, 4 OR 5 VIEWS: JAYLAN ALVAREZ [id number] -1980 F Exm Date: MAY 10, 2024@10:35 Req Phys: LEANDRA BAZE V Pat Loc: CWM/NO/RHEUMATOLOGY B (Req'g L Img Loc: [facility] 1 Service: Unknown Screen: Patient answered no [place] [facility] [employer] [facility] [place] [address] (Case 26 COMPLETE) SPINE CERVICAL, 4 OR 5 VIEWS (RAD Detailed) CPT:68936 Reason for Study: Evaluate for evid of spondyloarthropathy Clinical History: Pt with hx of on etanercept Report Status: Verified Date Reported: MAY 10, 2024 Date Verified: MAY 10, 2024 Broacher E-Sig:/ES/ANTONELLA BEARD JR Report: Study: AP, lateral and oblique views of the cervical spine. Comparison: None. Findings: The paraspinal soft tissues appear normal. The bony mineralization is normal. The cervical spine alignment is normal. The cervical spine intervertebral discs spaces appear normal. The vertebral body heights are normal. No bony fracture, dislocation or subluxation is identified. No bony neural foraminal impingement is identified on oblique views. Impression: No radiographic evidence of ankylosing spondylitis. Primary Diagnostic Code: No immediate attention required Primary Interpreting Staff: ANTONELLA BEARD JR, Radiologist (Broacher) /ANTONELLA CANO JR [place] [facility] SafeRoomsTRN [facility]OSPITALcitiserviROCKE[facility] May 10, 2024 10:34 AM FOOT 3 OR MORE VIEWS (RIGHT): JAYLAN ALVAREZ [id number] -1980 F Exm Date: MAY 10, 2024@10:34 Req Phys: LEANDRA BAEZ V Pat Loc: CWM/NO/RHEUMATOLOGY B (Req'g L Img Loc: [facility] 1 Service: Unknown Screen: Patient answered no [place] [address] (Case 23 COMPLETE) HAND 3 OR MORE VIEWS(LEFT) (RAD Detailed) CPT:70581 Reason for Study: Evaluate for evid of erosion - bilateral exam (Case 24 COMPLETE) HAND3 OR MORE VIEWS(RIGHT) (RAD Detailed) CPT:18176 Clinical History: Pt with hx of on etanercept. Reports foot swelling also hx of kidney stones Report Status: Verified Date Reported: MAY 10, 2024 Date Verified: MAY 10, 2024 Broacher E-Sig:/ES/ANTONELLA BEARD JR Report: Study: AP, Nordgaard, lateral, and oblique views of the left and right hands. COMPARISON: None. FINDINGS: The soft tissues are normal. No abnormal soft tissue calcifications are seen. The bony mineralization is normal. No juxta articular osteopenia is identified. No joint space erosions are seen. The hand joint spaces are normal and well-maintained. No bony fracture, dislocation or subluxation is identified. Impression: Normal bilateral hand radiographs. Primary Diagnostic Code: No immediate attention required Primary Interpreting Staff: ANTONELLA BEARD JR, Radiologist (Broacher) /ANTONELLA CANO JR [facility] Encounter Notes: All associated encounter notes This section contains the clinical notes associated to the Encounter. Date/Time Encounter Note(s) Provider Source Apr 16, 2024 11:01 AM TELEHEALTH NOTE: LOCAL TITLE: [place] VIDEO CONNECT PSYCHIATRIST NOTE STANDARD TITLE: TELEHEALTH NOTE DATE OF NOTE: APR 16, 2024@11:01 ENTRY DATE: APR 16, 2024@11:02:17 AUTHOR: JENNIFER PALUMBO EXP COSIGNER: URGENCY: STATUS: COMPLETED [facility] Connect (VVC) Standard Documentation VVC Clinician Resources Only: E911 (Emergency Call Relay Center): [phone] [facility] Crisis Line - 988 then press #1. CW Suicide Coordinator [phone], Ext. [phone]; Back-up Ext. [phone] [place] Police, Kassandra HERNANDEZ [phone] Introduction: Visit is being conducted by [place] [facility]. [place] identified with 2 identifiers: [X] Full Name [X] Date of [ ] VA ID Card Emergency Plan: [place] confirmed and/or provided the following information in case of emergency or technology failure. PATIENT PHONE - PHONE NUMBER [CELLULAR] - Is patient phone number correct, if not, enter below: [place]'s phone number: JAYLAN ALVAREZ [address], [place], [address] [place]'s present location and address for appointment: same as above 's emergency contact name and phone number: unchanged reported that location is private and safe: Yes Informed Consent: informed of the risks and benefits of Telehealth video care. [place] has the right to refuse video services. If refuses video visit, a [id number] visit will be scheduled. [place] verbalized consent for this video visit: Yes [place] provided consent for any other persons present for visit: N/A If yes, who and relationship to patient: Secure visit: Visit was locked for security and privacy:Yes CHART REVIEW: seen for initial MH Consult 03/18/23 noting: Nash is a [address] [facility] [employer] , presenting [facility] the [facility] to [facility] services and presenting for mental health due to frequent tearfulness. 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 [place] is interested in and would benefit from [...] TIME OF INITIAL VISIT WITH MYSELF 04/29/23: [place] reports no prior MH treatment. 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 [facility] She built a good group of friends who she stayed in touch with for a long time. 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 Is planning to pursue a claim about possible link between her RA and the anthrax vaccine. 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 She is open to trying an SSRI for mood. Will begin on Lexapro 10mg daily. NEXT VISIT NOTED: partial improvement seen since starting Lexapro but this is offset by ongoing c/o fatigue since starting the medication. We agreed to taper off this (cut to 5mg daily) and start on Wellbutrin 150mg daily increase to 300mg daily. NOTED AT LAST OP VISIT: reports the Lexapro was more effective, it was putting me to sleep ; Wellbutrin I didn't find it as effective but was only on the higher dose for a couple of weeks while on it heart rate didn't go down lower than the 80s. A/P: best improvement seen was on Lexapro 10mg but was too sedating (less so at 5mg daily) vs Wellbutrin. Reviewing options she would like to try 5mg dose again, take QHS vs trying a different agent. --------- -- PRESENTING SYMPTOMS AND CONDITION ON TODAY'S VISIT: reports less crying. Some anxiety but I recently traveled with my kids to [facility]. It was good. REVIEW OF SYSTEMS MENTAL HEALTH: SLEEP: good MOOD: not as emotional. I'm more productive PTSD symptoms: denied ANXIETY: Feeling overwhelmed ANGER/IRRITABILITY/AGGRESSION: Denies SUBSTANCE USE: Alcohol: rare Illegal/non-prescribed drugs: denies TOBACCO: Non-smoker RAJIV/HYPOMANIA: None evident PSYCHOTIC FEATURES: None evident Suicidal Thoughts/Intent/plan: denied Social Status/ Stressors: work is busy, kids CURRENT PSYCH meds: Lexapro 5mg daily ADVERSE EFFECTS: none MED REC: on new meds for GI and allergies (in CPRS), On embril lowers my immune system MENTAL STATUS EXAMINATION - Appearance and behavior: [...] CONDITION AND OVERALL PROGRESS TOWARD TREATMENT GOALS: improvement seen back on Lexapro 5mg dose again. No changes indicated or desired. i. Severity of Illness: ()none (x)mild ( )moderately ill ()severely ill ()very severely ill ii. Global Improvement: ()very much ( x)much ( x)min ( )none ()min worse ()much worse ()very much worse [...] for a follow-up appointment with myself in: 7-8 weeks, sooner if needed Additional Follow-Up instructions: 1. Reinforced: If urgent treatment is needed, call [phone] or go to the nearest Emergency Room 2. To schedule or change an appointment, inquire about medication refills, etc: call office number during normal office hours Diagnoses: History of dysthymia ([facility] [id number]) - Dysthymic disorder (ICD-10-CM F34.1) (Primary) /mat/ JENNIFER PALUMBO M.D. Signed: 04/16/2024 11:16 JENNIFER PALUMBO
--- OUTSIDE RECORDS SUMMARY | 2024-05-06 09:00 | XMS_ITS ---
Author Name [facility] Organization [facility] Address [address] [place] [address] Care Team Providers Care Cloud Services Architect Name Role Phone TRINH FRANCO Primary Care [...] Patient's Relationship to Policy [facility] [employer] ([id number]) PRESCRIPT ION [facility] Jun 07, 2022 [id number] ALVAREZ PATIENT Selected Encounter This section includes the information on record at NE for the Encounter. Date/Time Encounter Type Encounter Description Reason Pro vider Source May 06, 2024 01:00 PM Outpatient Encounter RHEUMATOLOGY/ARTHRITI S IHE Encounter Template Text not used by NE Plan of Treatment: Future Appointments (+ 6 months) and Future Tests (+/- 45 days) The Plan of Treatment section includes future care activities for the patient from all [place] treatmentfacilities. This section includes future appointments and future orders which are active, pending or scheduled. Future Appointments This section includes appointments that were scheduled to occur 6 months from the date of the Encounter, up to a maximum of 20 appointments. The data comes from all [place] treatment facilities. Appointment Date/Time Appointment Type Appointme nt Facility Name May 14, 2024 11:00 AM AMBULATORY [facility] [place] [facility] May 14, 2024 01:00 PM AMBULATORY [facility] [place] [facility] May 28, 2024 01:00 PM AMBULATORY [facility] [place] [facility] Jun 11, 2024 01:30 PM AMBULATORY - [facility]IAT[facility] [place] [facility] Jun 11, 2024 02:00 PM AMBULATORY - [facility] [place] [facility] Jun 15, 2024 10:45 AM [facility] [place] [facility] Jun 18, 2024 01:00 PM AMBULATORY [facility] [place] [facility] Jul 02, 2024 01:00 PM AMBULATORY - [facility] [place] [facility] Jul 09, 2024 01:00 PM AMBULATORY - [facility] [place] [facility] Jul 16, 2024 01:00 PM AMBULATORY [facility] [place] [facility] Jul 19, 2024 10:00 AM AMBULATORY - [facility] [place] [facility] Jul 23, 2024 01:00 PM AMBULATORY [facility] [place] [facility] Jul 30, 2024 01:00 PM AMBULATORY - [facility] [place] [facility] Aug 13, 2024 01:00 PM AMBULATORY [facility] [place] [facility] Aug 19, 2024 02:00 PM AM[facility]ULATORY [facility] [place] [facility] Aug 20, 2024 01:00 PM AMBULATORY [facility] [place] [facility] Aug 27, 2024 01:00 PM AMBULATORY - [facility] [place] [facility] Sep 10, 2024 01:00 PM AMBULATORY [facility] [place] [facility] Sep 16, 2024 09:00 AM AM[facility]ULATORY [facility]IC[facility] [place] [facility] Sep 17, 2024 01:00 PM AMBULATORY [facility] PS[facility]AT[facility] [place] [facility] Lab Results: +/- 30 days of the encounter This section includes the Chemistry and Hematology Lab Results on record with NE for the patient. Radiology Reports and Pathology Reports are provided separately, in subsequent sections. Lab Results This section contains the Chemistry/Hematology Results that were resulted 30 days before or 30 daysafter the date of the Encounter. Date/Time Source Result Type Result - Unit Interpretation Reference Range Specimen Type Comment May 10, 2024 08:51 AM [facility] HLA-B27 (QU) BLOOD Specimen Type: BLOOD Comment: normalcy status - Abnormal Test Performed by [facility], [facility], [address] [place] [address] Rodger Bender M.D., Ph.D., Director of Laboratories , [facility] [id number] TEST PERFORMED AT: , Ordering Provider: LEANDRA BAEZ V Report Released Date/Time: May 06, 2024 01:47 PM Reporting Lab: [facility] [address] [facility] [address] Performing Lab: [facility] [address] [address] HLA-B27 Positive Negative May 10, 2024 08:51 AM [facility] T-SPOT TB PANEL BLOOD Specimen Type: BLOOD [...] test. For additional information, please refer to http://education.Fluid.PernixData/faq/FAQ21 5 (This link is being provided for informational/ educational purposes only.) Test Performed by [facility], [facility], [address] [place], [place] Rodger Bender M.D., Ph.D., Director of Laboratories , CLIA [id number] TEST PERFORMED AT: , Ordering Provider: LEANDRA BAEZ V Report Released Date/Time: May 06, 2024 01:47 PM Reporting Lab: [facility] [address] [facility] [address] Performing Lab: [facility] [address] [address] O-EXHF-EXRPHR (o) Negative Negative T-SPOT-PNLA 0 T-SPOT-PNLB 2 B-DNJH-EATDXVA Passed W-JEFU-ROCKFNM Passed May 10, 2024 08:51 AM [facility] JOSEPH SCREEN/TITER SERUM Specimen Type: SERUM No comment entered. Ordering Provider: LEANDRA BAEZ V Report Released Date/Time: May 06, 2024 01:47 PM Reporting Lab: [facility] [address] [facility] [address] Performing Lab: [facility] [address] [facility] [address] JOSEPH SCREEN NEG NEG <1:40 May 10, 2024 08:51 AM [facility] HEPATITIS B SURFACE ANTIBODY (HBsAb)-WH SERUM Specimen [...] May 06, 2024 01:47 PM Reporting Lab: [address] [address] Performing Lab: [address] [address] HBsAb REACTIVE Non Reactive May 10, 2024 08:51 AM [facility] HEPATITIS B CORE (Total) Ab SERUM Specimen [...] May 06, 2024 01:47 PM Reporting Lab: [address] [address] Performing Lab: [address] [address] HEPATITIS B CORE (Total) Ab Non Reactive Non Reactive May 10, 2024 08:51 AM [facility] HEPATITIS C ANTIBODY (HCV)-ARC SERUM Specimen Type: SERUM Comment: Hep C Ab: No HCV antibody detected. If recent infection is suspected or other evidence suggests HCV infection, consider HCV nucleic acid testing Ordering Provider: LEANDRA BAEZ V Report Released Date/Time: May 06, 2024 01:47 PM Reporting Lab: [address] [address] Performing Lab: [address] [address] HEPATITIS C ANTIBODY NON-REACTIVE NON-RE ACTIVE May 10, 2024 08:51 AM [facility] CBC BLOOD Specimen Type: BLOOD No comment entered. Ordering Provider: LEANDRA BAEZ V Report Released Date/Time: May 06, 2024 01:47 PM Reporting Lab: [facility] [address] [facility] [address] Performing Lab: [facility] [address] [address] WBC 5.62 10*3/uL 4.50-11.00 RBC 3.76 10*6/uL L 3.93-5.16 HGB 12.3 g/dL 12-15.2 HCT 35.8 L 36.6-45.6 MCV 95.2 fL 82-99 MCHC 34.4 g/dL 30.8-35.1 PLT 322 10*3/uL 140-360 RDW-CV 11.8 L 12.0-16.0 MCH 32.7 pg H 26.2-32.6 May 10, 2024 08:51 AM [facility] LIVER FUNCTION SERUM Specimen Type: SERUM No comment entered. Ordering Provider: LEANDRA BAEZ V Report Released Date/Time: May 06, 2024 01:47 PM Reporting Lab: [address] [address] Performing Lab: [address] [address] PROTEIN,TOTAL 6.3 g/dL 6.0-8.3 ALBUMIN 3.5 g/dL 3.5-5.0 ALKALINE PHOSPHATASE 46 U/L 40-150 AST 14 U/L 5-34 ALT 11 U/L BILIRUBIN, TOTAL 0.4 mg/dL 0.2-1.2 May 10, 2024 08:51 AM [facility] URIC ACID SERUM Specimen Type: SERUM No comment entered. Ordering Provider: LEANDRA BAEZ V Report Released Date/Time: May 06, 2024 01:47 PM Reporting Lab: [address] [address] Performing Lab: [facility] [address] [facility] [address] URIC ACID 4.4 mg/dL 2.6-6 May 10, 2024 08:[address] [facility] TSH SERUM Specimen Type: SERUM No comment entered. Ordering Provider: LEANDRA BAEZ V Report Released Date/Time: May 06, 2024 01:47 PM Reporting Lab: [facility] [place] [facility] [address] [facility] [address] Performing Lab: [facility] [place] [facility] [address] [facility] [address] TSH 1.38 u[IU]/mL 0.35-5.00 May 10, 2024 08:[address] [facility] PO4 SERUM Specimen Type: SERUM No comment entered. Ordering Provider: LEANDRA BAEZ V Report Released Date/Time: May 06, 2024 01:47 PM Reporting Lab: [facility] [place] [facility] [address] [facility] [address] Performing Lab: [facility] [place] [facility] [address] [facility] [address] PO4 4.0 mg/dL 2.5-5.0 May 10, 2024 08:51 AM [facility] BASIC METABOLIC PANEL (non-fasting) SERUM Spe cimen Type: SERUM No comment entered. Ordering Provider: LEANDRA BAEZ V Report Released Date/Time: May 06, 2024 01:47 PM Reporting Lab: [facility] [place] [facility] [address] [facility] [address] Performing Lab: [facility] [address] [address] UREA NITROGEN 20 mg/dL 7-25 GLUCOSE 83 mg/dL 65-100 SODIUM 136 mmol/L 135-145 POTASSIUM 4.4 mmol/L 3.5-5.0 CHLORIDE 107 mmol/L 100-110 CO2 21 meq/L 20-30 CREATININE, Serum 0.75 mg/dL 0.50-1.40 eGFR(CKD-EPI 2020) >90 mL/min >60 Vital Signs: All taken on the encounter date This section contains inpatient and outpatient Vital Signs collected on the date of the Encounter. Date/Time Temperature Pulse Blood Pressure Respiratory Rate SP02 Pain Height Weight Body Mass Index Source May 06, 2024 01:09 PM 97.8 64 134/95 16 100 8 139 26 [facility] Advance Directives: All historical and current Section Date Range: From patient's date of to the date document was created. This section includes ALL of a patient's completed or amended [place] Advance and Rescinded Directives. The entries below indicate that a directive exists for the patient, but an actual copy is not included with this document. The data comes from all [place] facilities. Date Advance Directives Provider Source Mar 25, [address] [facility] Radiology Reports: +/- 30 days of [...] the Encounter. The data comes from all [place] treatment facilities. Date/Time Radiology Report Provider Source May 10, 2024 10:36 AM HAND 3 OR MORE VIEWS: KIMJAYLAN [id number] -1980 F Exm Date: MAY 10, 2024@10:36 Req Phys: LEANDRA BAEZ V Pat Loc: CWM/NO/RHEUMATOLOGY B (Req'g L Img Loc: [facility] 1 Service: Unknown Screen: Patient [place] [address] (Case 27 COMPLETE) FOOT 3 OR MORE VIEWS (RIGHT) (RAD Detailed) CPT:22998 Proc Modifiers : RIGHT CPT Modifiers : RT RIGHT SIDE Reason for Study: Evaluate for evid of spondyloarthropathy/erosion (Case 28 COMPLETE) FOOT 3 OR MORE VIEWS(LEFT) (RAD Detailed) CPT:71172 Proc Modifiers : LEFT CPT Modifiers : LT LEFT SIDE Clinical History: Pt with hx of on etanercept. Reports hand swelling Report Status: Verified Date Reported: MAY 10, 2024 Date Verified: MAY 10, 2024 Clay Temperer E-Sig:/ES/ANTONELLA BEARD JR Report: Study: Weight-bearing AP, [...] Primary Interpreting Staff: ANTONELLA BEARD JR, Radiologist (Clay Temperer) /ANTONELLA CANO JR [facility] May 10, 2024 10:35 AM SPINE LUMBOSACRAL MIN 4 VIEWS: JAYLAN ALVAREZ [id number] -1980 F Exm Date: MAY 10, 2024@10:35 Req Phys: LEANDRA BAEZ V Pat Loc: CWM/NO/RHEUMATOLOGY B (Req'g L Img Loc: [facility] 1 Service: Unknown Screen: Patient answered no [facility] [place] [address] (Case 25 COMPLETE) SPINE LUMBOSACRAL MIN 4 VIEWS (RAD Detailed) CPT:72946 Reason for Study: Evaluate for evid of spondyloarthropathy Clinical History: Pt with hx of on etanercept Report Status: Verified Date Reported: MAY 10, 2024 Date Verified: MAY 10, 2024 Clay Temperer E-Sig:/ES/ANTONELLA BEARD JR Report: Study: AP, left [...] Primary Interpreting Staff: ANTONELLA BEARD JR, Radiologist (Clay Temperer) /ANTONELLA CANO JR [facility] [place] [facility] May 10, 2024 10:35 AM SPINE CERVICAL, 4 OR 5 VIEWS: JAYLAN ALVAREZ [id number] -1980 F Exm Date: MAY 10, 2024@10:35 Req Phys: LEANDRA BAEZ V Pat Loc: CWM/NO/RHEUMATOLOGY B (Req'g L Img Loc: [facility] 1 Service: Unknown Screen: Patient answered no [facility] [place] [address] (Case 26 COMPLETE) SPINE CERVICAL, 4 OR 5 VIEWS (RAD Detailed) CPT:42666 Reason for Study: Evaluate for evid of spondyloarthropathy Clinical History: Pt with hx of on etanercept Report Status: Verified Date Reported: MAY 10, 2024 Date Verified: MAY 10, 2024 Clay Temperer E-Sig:/ES/ANTONELLA BEARD JR Report: Study: AP, lateral [...] Primary Interpreting Staff: ANTONELLA BEARD JR, Radiologist (Clay Temperer) /ANTONELLA CANO JR [facility] [place] [facility] May 10, 2024 10:34 AM FOOT 3 OR MORE VIEWS (RIGHT): JAYLAN ALVAREZ [id number] -1980 F Exm Date: MAY 10, 2024@10:34 Req Phys: LEANDRA BAEZ V Pat Loc: CWM/NO/RHEUMATOLOGY B (Req'g L Img Loc: [facility] 1 Service: Unknown Screen: Patient answered no [facility] [place] [address] (Case 23 COMPLETE) HAND 3 OR MORE VIEWS(LEFT) (RAD Detailed) CPT:99474 Reason for Study: Evaluate for evid of erosion - bilateral exam (Case 24 COMPLETE) HAND3 OR MORE VIEWS(RIGHT) (RAD Detailed) CPT:46039 Clinical History: Pt with hx of on etanercept. Reports foot swelling also hx of kidney stones Report Status: Verified Date Reported: MAY 10, 2024 Date Verified: MAY 10, 2024 Clay Temperer E-Sig:/ES/ANTONELLA BEARD JR Report: Study: AP, [place], [...] Primary Interpreting Staff: ANTONELLA BEARD JR, Radiologist (Clay Temperer) /ANTONELLA CANO JR [facility] Encounter Notes: All associated encounter notes This section contains the clinical notes associated to the Encounter. Date/Time Encounter Note(s) Provider Source May 06, 2024 01:11 PM RHEUMATOLOGY CONSULT: LOCAL TITLE: CONSULT REPORT/RHEUMATOLOGY STANDARD TITLE: RHEUMATOLOGY CONSULT DATE OF NOTE: MAY 06, 2024@13:11 ENTRY DATE: MAY 06, 2024@13:11:51 AUTHOR: LEANDRA BAEZ COSIGNER: URGENCY: STATUS: COMPLETED CONSULT REPORT/RHEUMATOLOGY Has ADDENDA Pt is a 43 yo transferring care from the community for treatment of spondyloarthropathy. 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 Currently still taking 50mg weekly states fingers swell sometimes no psoriasis in pt or family no hx of IBD in family - pt states 2 years ago - was in [facility] and diagnosed with colitis - but on Abx - she has had recurrence of bowel symptoms - getting colonoscopy week before Thanks. September [facility] + pain in outer hips. She is unaware of any xray changes no hx of red eyes or scleritis/uveitis + diffuse hair loss, no oral ulcer fingertips turn white in the cold One blood test for TB came back equivicol and she was sent to ID and determined not to have TB NKDA is allergic to trees, dogs and cats per allergy testing The following VA and Non-VA medications were reconciled with the patient: Active Outpatient Medications (including Supplies): CHOLECALCIF 50MCG (D3-2,000UNIT) TAB TAKE ONE TABLET BY ACTIVE MOUTH ONCE DAILY FOR VITAMIN SUPPLEMENTATION CREON 24,000UNIT EC CAP TAKE 2 CAPSULES BY MOUTH TWICE ACTIVE (S) DAILY ESCITALOPRAM OXALATE 10MG TAB TAKE ONE-HALF TABLET BY ACTIVE MOUTH EVERY EVENING FOR MOOD/DEPRESSION FEXOFENADINE HCL 180MG TAB TAKE ONE TABLET BY MOUTH ONCE ACTIVE DAILY FOR ALLERGIES Non-VA ETANERCEPT 25MG/0.5ML INJ SYRINGE 25MG ACTIVE SUBCUTANEOUSLY ON FRIDAY PMHX Kidney stones - she is not sure what type broken ankle (lateral maleolus last summer Frequent UTIs - last in October 2023 FamHx GM and brother kidney stones 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 Courtney's 10->14.5cm, Occiput to wall normal no achilles thickening, No trochanteric tenderness today. 7.29/36/308 normal diff; normal lytes, lfts and renal function; last glucose 108 tsh 1.67 no documented Hep serologies or TB test in our system Imp/plan - Spondyloarthropathy - well controlled for years on Etanercept for years - transferring care to [place] - will get baseline studies so NF can be entered (hep serologies and t-spot). Unclear reason why went straight to TNF inhibitor - no apparent spine involvement.Will check baseline films. Discussed that if swollen joint, should aspirate, jaleesa given hx of kidney stones, since that can be associated wtih crystalline arthritis. For now continue etanercept - if continues to be well controlled. At some point, may be able to decrease frequency. RTC 3-4 months; message or call with any issues /es/ LEANDRA BAEZ STAFF PHYSICIAN Signed: 05/12/2024 12:43 05/13/2024 ADDENDUM STATUS: COMPLETED T-spot negative. 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 /mat/ LEANDRA BAEZ STAFF PHYSICIAN Signed: 05/13/2024 13:49 LEANDRA BAEZ V [facility]
--- OUTSIDE RECORDS SUMMARY | 2024-05-14 07:00 | XMS_ITS | Encounter Summary ---
Author Name [facility] [place] Organization [facility] [place] [facility] [place] Address [address] [place] [address] Care Team Providers Care Manager Export Name Role Phone TRINH FRANCO Primary Care [...] Patient's Relationship to Policy [employer] ([phone]) PRESCRIPT ION [facility] Jun 07, 2022 [id number] ALVAREZ PATIENT Selected Encounter This section includes the information on record at [place] for the Encounter. Date/Time Encounter Type Encounter Description Reason Provider Source May 14, 2024 11:00 AM OFFICE O/P EST LOW 20 [facility] - IND ICD-10-CM F34.1 Dysthymic disorder JENNIFER PALUMBO Junior Encounter Template Text not used by [facility] Assessments - Encounter Diagnoses This section includes the primary and secondary diagnoses documented for the Encounter. Date/Time Primary/Secondary Diagnosis Diagnosis Name Provider Source May 14, 2024 11:15 AM PRIMARY Dysthymic disorder JENNIFER PALUMBO May 14, 2024 11:15 AM SECONDARY Post-traumatic stress disorder, chronic JENNIFER PALUMBO Plan of Treatment: Future Appointments (+ 6 months) and Future Tests (+/- 45 days) The Plan of Treatment section includes future care activities for the patient [facility] [place] [facility] This section includes future appointments and future orders which are active, pending or scheduled. Future Appointments This section includes appointments that were scheduled to occur 6 months from the date of the Encounter, up to a maximum of 20 appointments. The data comes from all [place] treatment facilities. Appointment Date/Time Appointment Type Appointme nt Facility Name May 28, 2024 01:00 PM AMBULATORY [facility]AT[facility] [place] [facility] Jun 11, 2024 01:30 PM AMBULATORY - PS[facility]RY [facility] [place] [facility] Jun 11, 2024 02:00 PM AMBULATORY - [facility]RY [facility] [place] [facility] Jun 15, 2024 10:45 AM AMBULATORY - MEDICINE [facility] [place] [facility] Jun 18, 2024 01:00 PM AMBULATORY [facility] PS[facility]RY [facility] [place] [facility] Jul 02, 2024 01:00 PM AMBULATORY - PS[facility]IATRY [facility] [place] [facility] Jul 09, 2024 01:00 PM AMBULATORY - PS[facility]IATRY [facility] [place] [facility] Jul 16, 2024 01:00 PM AMBULATORY - PS[facility]IATRY [facility] [place] [facility] Jul 19, 2024 10:00 AM AMBULATORY - PS[facility]IATRY [facility] [place] [facility] Jul 23, 2024 01:00 PM AMBULATORY - PS[facility]CHIATRY [facility] [place] [facility] Jul 30, 2024 01:00 PM AMBULATORY - PS[facility]IATRY [facility] [place] [facility] Aug 13, 2024 01:00 PM AMBULATORY - PS[facility]CHIATRY [facility] [place] [facility] Aug 19, 2024 02:00 PM AMBULATORY - MEDICINE [facility] [place] [facility] Aug 20, 2024 01:00 PM AMBULATORY - PS[facility]CHIATRY [facility] [place] [facility] Aug 27, 2024 01:00 PM AMBULATORY - PS[facility]CHIATRY [facility] [place] [facility] Sep 10, 2024 01:00 PM AMBULATORY - PS[facility]CHIATRY [facility] [place] [facility] Sep 16, 2024 09:00 AM AM[facility]ULATORY [facility] MEDICINE [facility] Sep 17, 2024 01:00 PM [facility] Sep 24, 2024 11:30 AM AMBULATORY - PSYCHIATRY [facility] Oct 08, 2024 01:00 PM AMBULATORY - PSYCHIATRY [facility] Lab Results: +/- 30 days of the encounter This section includes the Chemistry and Hematology Lab Results on record with [place] for the patient. Radiology Reports and Pathology Reports are provided separately, in subsequent sections. Lab Results This section contains the Chemistry/Hematology Results that were resulted 30 days before or 30 daysafter the date of the Encounter. Date/Time Source Result Type Result - Unit Interpretation Reference Range Specimen Type Comment May 10, 2024 08:51 AM [facility] HLA-B27 (QU) BLOOD Specimen Type: BLOOD Comment: normalcy status - Abnormal Test Performed by [facility], [facility], [address] [place] [address] Rodger Bender M.D., Ph.D., Director of Laboratories , [facility] [id number] TEST PERFORMED AT: , Ordering Provider: LEANDRA BAEZ V Report Released Date/Time: May 06, 2024 01:47 PM Reporting Lab: [facility] [address] [facility] [address] Performing Lab: [facility] [address] [address] HLA-B27 Positive Negative May 10, 2024 08:51 AM [facility] T-SPOT TB PANEL BLOOD Specimen Type: [...] test. For additional information, please refer to http://education.[place]/faq/FAQ21 5 (This link is being provided for informational/ educational purposes only.) Test Performed by [employer], [facility], [address] [place] [address] Rodger Bender M.D., Ph.D., Director of Laboratories , [place] [id number] TEST PERFORMED AT: , Ordering Provider: LEANDRA BAEZ V Report Released Date/Time: May 06, 2024 01:47 PM Reporting Lab: [facility] [address] [facility] [address] Performing Lab: [facility] [address] [address] R-[id number] (o) Negative Negative T-SPOT-PNLA 0 T-SPOT-PNLB 2 D-[id number] Passed F-SLDW-GWQRHUK Passed May 10, 2024 08:51 AM [facility] JOSEPH SCREEN/TITER SERUM Specimen Type: SERUM No comment entered. Ordering Provider: LEANDRA BAEZ V Report Released Date/Time: May 06, 2024 01:47 PM Reporting Lab: [facility] [address] [facility] [address] Performing Lab: [facility] [address] [facility] [address] JOSEPH SCREEN NEG NEG <1:40 May 10, 2024 08:51 AM [facility] HEPATITIS B CORE (Total) Ab SERUM [...] May 06, 2024 01:47 PM Reporting Lab: [address] [address] Performing Lab: [address] [address] HEPATITIS B CORE (Total) Ab Non Reactive Non Reactive May 10, 2024 08:51 AM [facility] HEPATITIS B SURFACE ANTIBODY (HBsAb)- SERUM Specimen Type: SERUM Comment: Hep B [...] May 06, 2024 01:47 PM Reporting Lab: [address] [address] Performing Lab: [address] [address] HBsAb REACTIVE Non Reactive May 10, 2024 08:51 AM [facility] HEPATITIS C ANTIBODY (HCV)-ARC SERUM Specimen Type: SERUM Comment: Hep C Ab: No HCV antibody detected. If recent infection is suspected or other evidence suggests HCV infection, consider HCV nucleic acid testing Ordering Provider: LEANDRA BAEZ V Report Released Date/Time: May 06, 2024 01:47 PM Reporting Lab: [address] [address] Performing Lab: [facility] [address] [address] HEPATITIS C ANTIBODY NON-REACTIVE NON-RE ACTIVE May 10, 2024 08:51 AM [facility] CBC BLOOD Specimen Type: BLOOD No comment entered. Ordering Provider: LEANDRA BAEZ V Report Released Date/Time: May 06, 2024 01:47 PM Reporting Lab: [address] [address] Performing Lab: [facility] [address] [address] WBC 5.62 10*3/uL 4.50-11.00 RBC 3.76 10*6/uL L 3.93-5.16 HGB 12.3 g/dL 12-15.2 HCT 35.8 L 36.6-45.6 MCV 95.2 fL 82-99 MCHC 34.4 g/dL 30.8-35.1 PLT 322 10*3/uL 140-360 RDW-CV 11.8 L 12.0-16.0 MCH 32.7 pg H 26.2-32.6 May 10, 2024 08:51 AM [facility] URIC ACID SERUM Specimen Type: SERUM No comment entered. Ordering Provider: LEANDRA BAEZ V Report Released Date/Time: May 06, 2024 01:47 PM Reporting Lab: [address] [address] Performing Lab: [address] [address] URIC ACID 4.4 mg/dL 2.6-6 May 10, 2024 08:51 AM [facility] LIVER FUNCTION SERUM Specimen Type: SERUM No comment entered. Ordering Provider: LEANDRA BAEZ V Report Released Date/Time: May 06, 2024 01:47 PM Reporting Lab: [facility] [place] [facility] [address] [facility] [address] Performing Lab: [facility] [place] [facility] [address] [facility] [address] PROTEIN,TOTAL 6.3 g/dL 6.0-8.3 ALBUMIN 3.5 g/dL 3.5-5.0 ALKALINE PHOSPHATASE 46 U/L 40-150 AST 14 U/L 5-34 ALT 11 U/L BILIRUBIN, TOTAL 0.4 mg/dL 0.2-1.2 May 10, 2024 08:51 AM [facility] [place] [facility] PO4 SERUM Specimen Type: SERUM No comment entered. Ordering Provider: LEANDRA BAEZ V Report Released Date/Time: May 06, 2024 01:47 PM Reporting Lab: [facility] [address] [facility] [address] Performing Lab: [facility] [address] [address] PO4 4.0 mg/dL 2.5-5.0 May 10, 2024 08:51 AM [facility] TSH SERUM Specimen Type: SERUM No comment entered. Ordering Provider: LEANDRA BAEZ V Report Released Date/Time: May 06, 2024 01:47 PM Reporting Lab: [facility] [place] [facility] [address] [facility] [address] Performing Lab: [place] [facility] [place] [place] [address] [address] TSH 1.38 u[IU]/mL 0.35-5.00 May 10, 2024 08:51 AM [facility] BASIC METABOLIC PANEL (non-fasting) SERUM Spe cimen Type: SERUM No comment entered. Ordering Provider: LEANDRA BAEZ V Report Released Date/Time: May 06, 2024 01:47 PM Reporting Lab: [facility] [place] [facility] [address] [facility] [address] Performing Lab: [facility] [place] [place] [address] [address] UREA NITROGEN 20 mg/dL 7-25 GLUCOSE 83 [...] and tobacco- related health factors from the [place] facility where the Encounter took place. Current Smoking Status This section includes the most current smoking, or tobacco-related health factor, from the [place] facility where the Encounter took place. Date/Time Current Smoking Status Comment Facil ity Mar 18, 2023 09:00 AM [place]-TOBACCO NEVER USED [place] Advance Directives: All historical and current Section Date Range: From patient's date of to the date document was created. This section includes ALL of a patient's completed or amended [place] Advance and Rescinded Directives. The entries below indicate that a directive exists for the patient, but an actual copy is not included with this document. The data comes from all [place] facilities. Date Advance Directives Provider Source Mar 25, 2023 ADVANCE DIRECTIVE PETROS MOTLEY [facility] Radiology Reports: +/- 30 days of [...] the Encounter. The data comes from all [place] treatment facilities. Date/Time Radiology Report Provider Source May 10, 2024 10:36 AM HAND 3 OR MORE VIEWS: JAYLAN ALVAREZ [id number] -1980 F Exm Date: MAY 10, 2024@10:36 Req Phys: LEANDRA BAEZ V Pat Loc: CWM/NO/RHEUMATOLOGY B (Req'g L Img Loc: [facility] 1 Service: Unknown Screen: Patient answered no [facility] [place] [facility] [place] [address] (Case 27 COMPLETE) FOOT 3 OR MORE VIEWS (RIGHT) (RAD Detailed) CPT:86906 Proc Modifiers : RIGHT CPT Modifiers : RT RIGHT SIDE Reason for Study: Evaluate for evid of spondyloarthropathy/erosion (Case 28 COMPLETE) FOOT 3 OR MORE VIEWS(LEFT) (RAD Detailed) CPT:62080 Proc Modifiers : LEFT CPT Modifiers : LT LEFT SIDE Clinical History: Pt with hx of on etanercept. Reports hand swelling Report Status: Verified Date Reported: MAY 10, 2024 Date Verified: MAY 10, 2024 Agate Setter E-Sig:/ES/ANTONELLA BEARD JR Report: Study: Weight-bearing AP, [...] Primary Interpreting Staff: ANTONELLA BEARD JR, Radiologist (Agate Setter) /ANTONELLA CANO JR [facility] May 10, 2024 10:35 AM SPINE CERVICAL, 4 OR 5 VIEWS: KIMJAYLAN Zhou [id number] -1980 F Exm Date: MAY 10, 2024@10:35 Req Phys: LEANDRA BAEZ V Pat Loc: CWM/NO/RHEUMATOLOGY B (Req'g L Img Loc: [facility] 1 Service: Unknown Screen: [place] [address] (Case 26 COMPLETE) SPINE CERVICAL, 4 OR 5 VIEWS (RAD Detailed) CPT:68849 Reason for Study: Evaluate for evid of spondyloarthropathy Clinical History: Pt with hx of on etanercept Report Status: Verified Date Reported: MAY 10, 2024 Date Verified: MAY 10, 2024 Agate Setter E-Sig:/ES/ANTONELLA BERAD JR Report: Study: AP, lateral and oblique [...] Primary Interpreting Staff: ANTONELLA BEARD JR, Radiologist (Agate Setter) /ANTONELLA CANO JR [place] [facility] May 10, 2024 10:35 AM SPINE LUMBOSACRAL MIN 4 VIEWS: JAYLAN ALVAREZ [id number] -1980 F Exm Date: MAY 10, 2024@10:35 Req Phys: LEANDRA BAEZ V Pat Loc: CWM/NO/RHEUMATOLOGY B (Req'g L Img Loc: [facility] 1 Service: Unknown Screen: Patient answered no [place] [facility] [place] [address] (Case 25 COMPLETE) SPINE LUMBOSACRAL MIN 4 VIEWS (RAD Detailed) CPT:22444 Reason for Study: Evaluate for evid of spondyloarthropathy Clinical History: Pt with hx of on etanercept Report Status: Verified Date Reported: MAY 10, 2024 Date Verified: MAY 10, 2024 Agate Setter E-Sig:/ES/ANTONELLA BEARD JR Report: Study: AP, left [...] Primary Interpreting Staff: ANTONELLA BEARD JR, Radiologist (Agate Setter) /ANTONELLA CANO JR [place] [facility] May 10, 2024 10:34 AM FOOT 3 OR MORE VIEWS (RIGHT): JAYLAN ALVAREZ [id number] -1980 F Exm Date: MAY 10, 2024@10:34 Req Phys: LEANDRA BAEZ V Pat Loc: CWM/NO/RHEUMATOLOGY B (Req'g L Img Loc: [facility] 1 Service: Unknown Screen: Patient answered no [place] [address] (Case 23 COMPLETE) HAND 3 OR MORE VIEWS(LEFT) (RAD Detailed) CPT:73470 Reason for Study: Evaluate for evid of erosion - bilateral exam (Case 24 COMPLETE) HAND3 OR MORE VIEWS(RIGHT) (RAD Detailed) CPT:49078 Clinical History: Pt with hx of on etanercept. Reports foot swelling also hx of kidney stones Report Status: Verified Date Reported: MAY 10, 2024 Date Verified: MAY 10, 2024 Agate Setter E-Sig:/ES/ANTONELLA BEARD JR Report: Study: AP, [place], [...] Primary Interpreting Staff: ANTONELLA BEARD JR, Radiologist (Agate Setter) /EAANTONELLA ODEN JR [facility] Encounter Notes: All associated encounter notes This section contains the clinical notes associated to the Encounter. Date/Time Encounter Note(s) Provider Source May 14, 2024 11:02 AM TELEHEALTH NOTE: LOCAL TITLE: [place] VIDEO CONNECT PSYCHIATRIST NOTE STANDARD TITLE: TELEHEALTH NOTE DATE OF NOTE: MAY 14, 2024@11:02 ENTRY DATE: MAY 14, 2024@11:03:01 AUTHOR: JENNIFER PALUMBO EXP COSIGNER: URGENCY: STATUS: COMPLETED [facility] Connect (VVC) Standard Documentation VVC Clinician Resources Only: E911 (Emergency Call Relay Center): [phone] National Veterans Crisis Line - 988 then press #1. DEYALorenzo Suicide Coordinator [phone], Ext. [phone]; Back-up Ext. [phone] [place] Police, Kassandra HERNANDEZ [phone] Introduction: Visit is being conducted by [place] Video Connect. [place] identified with 2 identifiers: [X] Full Name [X] Date of [ ] VA ID Card Emergency Plan: confirmed and/or provided the following information in case of emergency or technology failure. PATIENT PHONE - PHONE NUMBER [CELLULAR] - Is patient phone number correct, if not, enter below: 's phone number: JAYLAN ALVAREZ [address], [place], [address] 's present location and address for appointment: same as above [place]'s emergency contact name and phone number: unchanged reported that location is private and safe: Yes Informed Consent: [place] informed of the risks and benefits of Telehealth video care. [place] has the right to refuse video services. If refuses video visit, a jfxx-eo-[id number] visit will be scheduled. [place] verbalized consent for this video visit: Yes provided consent for any other persons present for visit: N/A If yes, who and relationship to patient: Secure visit: Visit was locked for security and privacy:Yes CHART REVIEW: seen for initial MH Consult 03/18/23 noting: [place] is a 42 year old [facility] [employer] [place], [facility] the [facility] to [facility] services and presenting for mental health due to frequent tearfulness. She presents with with depression and also screens positive for PTSD due to her job, which was in [employer] services in [facility], [place] and reports that this, along with seeing [...] that this has greatly impacted her mood/tearfulness. [place] is interested in and would benefit from [...] TIME OF INITIAL VISIT WITH MYSELF 04/29/23: [place] reports no prior MH treatment. 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 She built a good group of friends who she stayed in touch with for a long time. 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 Is planning to pursue a claim about possible link between her RA and the anthrax vaccine. 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 Works 65 hours/ week [...] Wellbutrin 150mg daily increase to 300mg daily. NEXT VISIT NOTED: best improvement seen was on Lexapro 10mg but was too sedating (less so at 5mg daily) vs Wellbutrin. Reviewing options she would like to try 5mg dose again, take QHS vs trying a different agent. NOTED AT LAST OP VISIT: improvement seen back on Lexapro 5mg dose again. No changes indicated or desired. --------- -- PRESENTING SYMPTOMS AND CONDITION ON TODAY'S VISIT: [place] reports my emotions are up and down. Crying easily. Going on the last 3 weeks. I had a situation at work a month ago when she came across a letter by a colleague which seemed like a suicide note, reminds her about loss of coworkers in . She is starting therapy today. REVIEW OF SYSTEMS MENTAL HEALTH: SLEEP: good [...] CONDITION AND OVERALL PROGRESS TOWARD TREATMENT GOALS: experiencing increased depression with reminder of losses in . We agree to increase Lexapro to 10mg dose again, hoping she can tolerate sedation this time. i. Severity of Illness: ()none (x)mild ( x)moderately ill ()severely ill ()very severely ill ii. Global Improvement: ()very much ( )much ( )min ( )none (x)min worse (x)much worse ()very much worse iii. RISK ASSESSEMENT: [...] for a follow-up appointment with myself in: 4 weeks, sooner if needed Additional Follow-Up instructions: 1. Reinforced: If urgent treatment is needed, call [phone] or go to the nearest Emergency Room 2. To schedule or change an appointment, inquire about medication refills, etc: call office number during normal office hours Diagnoses: History of dysthymia ([facility] [id number]) - Dysthymic disorder (ICD-10-CM F34.1) (Primary) Chronic post-traumatic stress disorder ([facility] [id number]) - Post-traumatic stress disorder, chronic (ICD-10-CM F43.12) /mat/ JENNIFER PALUMBO M.D. Signed: 05/14/2024 11:16 JENNIFER PALUMBOFIELD
--- OUTSIDE RECORDS SUMMARY | 2024-05-14 09:00 | XMS_ITS ---
Author Name [facility] Organization [facility] Address [address] [place] [address] Care Team Providers Care Escrow Secretary Name Role Phone TRINH FRANCO Primary Care [...] Patient's Relationship to Policy [facility] [employer] ([id number]) PRESCRIPT ION [facility] Jun 07, 2022 [id number] PATIENT Selected Encounter This section includes the information on record at NH for the Encounter. Date/Time Encounter Type Encounter Description Reason Provider Source May 14, 2024 01:00 PM PSYTX W PT 45 MINUTES [facility] - IND ICD-10-CM F43.12 Post-traumatic stress disorder, chronic CAMPONOGARA,SA LIYAH E Encounter Template Text not used by [place] Assessments - Encounter Diagnoses This section includes the primary and secondary diagnoses documented for the Encounter. Date/Time Primary/Secondary Diagnosis Diagnosis Name Provider Source May 14, 2024 03:38 PM PRIMARY Post-traumatic stress disorder, chronic CAMPONOGARA,SA LIYAH [place] [facility] [place] [facility] May 14, 2024 03:38 PM SECONDARY Major depressive disorder, recurrent, moderate CAMPONOGARA,SA LIYAH [facility] [place] [facility] Plan of Treatment: Future Appointments (+ 6 months) and Future Tests (+/- 45 days) The Plan of Treatment section includes future care activities for the patient from all [place] treatmentfacilities. This section includes future appointments and [...] AMBULATORY - PSYCHIATRY [facility] [place] [facility] Jun 11, 2024 01:30 PM AMBULATORY - PSYCHIATRY [facility] [place] [facility] Jun 11, 2024 02:00 PM AMBULATORY - PSYCHIATRY [facility] [place] [facility] Jun 15, 2024 10:45 AM AMBULATORY - MEDICINE [facility] [place] [facility] Jun 18, 2024 01:00 PM AMBULATORY - PSYCHIATRY [facility] [place] [facility] Jul 02, 2024 01:00 PM AMBULATORY - PSYCHIATRY [facility] [place] [facility] Jul 09, 2024 01:00 PM AMBULATORY - PSYCHIATRY [facility] [place] [facility] Jul 16, 2024 01:00 PM AMBULATORY - PSYCHIATRY [facility] [place] [facility] Jul 19, 2024 10:00 AM AMBULATORY - PSYCHIATRY [facility] [place] [facility] Jul 23, 2024 01:00 PM AMBULATORY - PSYCHIATRY [facility] [place] [facility] Jul 30, 2024 01:00 PM AMBULATORY - PSYCHIATRY [facility] [place] [facility] Aug 13, 2024 01:00 PM AMBULATORY - PSYCHIATRY [facility] [place] [facility] Aug 19, 2024 02:00 PM AMBULATORY - MEDICINE [facility] [place] [facility] Aug 20, 2024 01:00 PM AMBULATORY - PSYCHIATRY [facility] [place] [facility] Aug 27, 2024 01:00 PM AMBULATORY - PSYCHIATRY [facility] [place] [facility] Sep 10, 2024 01:00 PM AMBULATORY - [facility]IATRY [facility] Sep 16, 2024 09:00 AM AMBULATORY - MEDICINE [facility] Sep 17, 2024 01:00 PM [facility]BUL[facility] Sep 24, 2024 11:30 AM [facility]UL[facility] Oct 08, 2024 01:00 PM [facility] Lab Results: +/- 30 days of the encounter This section includes the Chemistry and Hematology Lab Results on record with NH for the patient. Radiology Reports and Pathology Reports are provided separately, in subsequent sections. Lab Results This section contains the Chemistry/Hematology Results that were resulted 30 days before or 30 daysafter the date of the Encounter. Date/Time Source Result Type Result - Unit Interpretation Reference Range Specimen Type Comment May 10, 2024 08:51 AM [facility] HLA-B27 (QU) BLOOD Specimen Type: BLOOD Comment: normalcy status - Abnormal Test Performed by [facility], [facility], [address] [place] [address] Rodger Bender M.D., Ph.D., Director of Laboratories , [facility] [id number] TEST PERFORMED AT: , Ordering Provider: LEANDRA BAEZ V Report Released Date/Time: May 06, 2024 01:47 PM Reporting Lab: [facility] [address] [facility] [address] Performing Lab: [facility] [address] [address] HLA-B27 Positive Negative May 10, 2024 08:51 AM [facility] T-SPOT TB PANEL BLOOD Specimen Type: BLOOD [...] test. For additional information, please refer to http://education.[employer]/faq/FAQ21 5 (This link is being provided for informational/ educational purposes only.) Test Performed by [facility], [employer] [facility], [address] [place] [address] Rodger Bender M.D., Ph.D., Director of Laboratories , [facility] [id number] TEST PERFORMED AT: , Ordering Provider: LEANDRA BAEZ V Report Released Date/Time: May 06, 2024 01:47 PM Reporting Lab: [address] [address] Performing Lab: [facility] [address] [address] J-[id number] (o) Negative Negative T-SPOT-PNLA 0 T-SPOT-PNLB 2 X-ETDD-CMEXFLE Passed W-WNMS-EGZITHG Passed May 10, 2024 08:51 AM [facility] JOSEPH SCREEN/TITER SERUM Specimen Type: SERUM No comment entered. Ordering Provider: LEANDRA BAEZ V Report Released Date/Time: May 06, 2024 01:47 PM Reporting Lab: [facility] [address] [facility] [address] Performing Lab: [facility] [address] [facility] [address] JOSEPH SCREEN NEG NEG <1:40 May 10, 2024 08:51 AM [facility] HEPATITIS B SURFACE ANTIBODY (HBsAb)-WH SERUM Specimen [...] May 06, 2024 01:47 PM Reporting Lab: [address] [address] Performing Lab: [address] [address] HBsAb REACTIVE Non Reactive May 10, 2024 08:51 AM [facility] HEPATITIS B CORE (Total) Ab SERUM Specimen [...] May 06, 2024 01:47 PM Reporting Lab: [address] [address] Performing Lab: [address] [address] HEPATITIS B CORE (Total) Ab Non Reactive Non Reactive May 10, 2024 08:51 AM [facility] HEPATITIS C ANTIBODY (HCV)-ARC SERUM Specimen Type: SERUM Comment: Hep C Ab: No HCV antibody detected. If recent infection is suspected or other evidence suggests HCV infection, consider HCV nucleic acid testing Ordering Provider: LEANDRA BAEZ V Report Released Date/Time: May 06, 2024 01:47 PM Reporting Lab: [address] [address] Performing Lab: [address] [address] HEPATITIS C ANTIBODY NON-REACTIVE NON-RE ACTIVE May 10, 2024 08:51 AM [facility] CBC BLOOD Specimen Type: BLOOD No comment entered. Ordering Provider: LEANDRA BAEZ V Report Released Date/Time: May 06, 2024 01:47 PM Reporting Lab: [address] [address] Performing Lab: [address] [address] WBC 5.62 10*3/uL 4.50-11.00 RBC 3.76 10*6/uL L 3.93-5.16 HGB 12.3 g/dL 12-15.2 HCT 35.8 L 36.6-45.6 MCV 95.2 fL 82-99 MCHC 34.4 g/dL 30.8-35.1 PLT 322 10*3/uL 140-360 RDW-CV 11.8 L 12.0-16.0 MCH 32.7 pg H 26.2-32.6 May 10, 2024 08:51 AM [facility] LIVER FUNCTION SERUM Specimen Type: SERUM No comment entered. Ordering Provider: LEANDRA BAEZ V Report Released Date/Time: May 06, 2024 01:47 PM Reporting Lab: [address] [address] Performing Lab: [address] [address] PROTEIN,TOTAL 6.3 g/dL 6.0-8.3 ALBUMIN 3.5 g/dL 3.5-5.0 ALKALINE PHOSPHATASE 46 U/L 40-150 AST 14 U/L 5-34 ALT 11 U/L BILIRUBIN, TOTAL 0.4 mg/dL 0.2-1.2 May 10, 2024 08:51 AM [facility] URIC ACID SERUM Specimen Type: SERUM No comment entered. Ordering Provider: LEANDRA BAEZ V Report Released Date/Time: May 06, 2024 01:47 PM Reporting Lab: [facility] [place] [facility] [address] [facility] [address] Performing Lab: [facility] [place] [address] [facility] [address] URIC ACID 4.4 mg/dL 2.6-6 May 10, 2024 08:51 AM [facility] TSH SERUM Specimen Type: SERUM No comment entered. Ordering Provider: LEANDRA BAEZ V Report Released Date/Time: May 06, 2024 01:47 PM Reporting Lab: [facility] [place] [facility] [address] [facility] [address] Performing Lab: [facility] [address] [facility] [address] TSH 1.38 u[IU]/mL 0.35-5.00 May 10, 2024 08:51 AM [facility] PO4 SERUM Specimen Type: SERUM No comment entered. Ordering Provider: LEANDRA BAEZ V Report Released Date/Time: May 06, 2024 01:47 PM Reporting Lab: [facility] [place] [facility] [address] [facility] [address] Performing Lab: [facility] [place] [facility] [address] [address] PO4 4.0 mg/dL 2.5-5.0 May 10, 2024 08:51 AM [facility] BASIC METABOLIC PANEL (non-fasting) SERUM Spe cimen Type: SERUM No comment entered. Ordering Provider: LEANDRA BAEZ V Report Released Date/Time: May 06, 2024 01:47 PM Reporting Lab: [facility] [place] [facility] [address] [facility] [address] Performing Lab: [facility] [address] [facility] [address] UREA NITROGEN 20 mg/dL 7-25 GLUCOSE 83 [...] Date/Time Current Smoking Status Comment Facil ity May 14, 2024 01:00 PM NH-TOBACCO NEVER U SED OTHER TYPE [facility] Tobacco Use History This section includes a history of the smoking, or tobacco-related health factors, that were collected on or before the date of the Encounter. The data comes from the [place] facility where the Encounter took place. Date/Time Smoking Status/Tobacco Use Comment F acility May 14, 2024 01:00 PM NH-TOBACCO NEVER U SED OTHER TYPE [facility] Advance Directives: All historical and current Section [...] Mar 25, 2023 ADVANCE DIRECTIVE PETROS MOTLEY Radiology Reports: +/- 30 days of the [...] HAND 3 OR MORE VIEWS: JAYLAN ALVAREZ [id number] -1980 F Exm Date: MAY 10, 2024@10:36 Req Phys: BAEZLEANDRA BARTON V Pat Loc: CWM/NO/RHEUMATOLOGY B (Req'g L Img Loc: [facility]/BUILDING 1 Service: Unknown Screen: Patient answered no [facility] [place] [address] (Case 27 COMPLETE) FOOT 3 OR MORE VIEWS (RIGHT) (RAD Detailed) CPT:45961 Proc Modifiers : RIGHT CPT Modifiers : RT RIGHT SIDE Reason for Study: Evaluate for evid of spondyloarthropathy/erosion (Case 28 COMPLETE) FOOT 3 OR MORE VIEWS(LEFT) (RAD Detailed) CPT:92466 Proc Modifiers : LEFT CPT Modifiers : LT LEFT SIDE Clinical History: Pt with hx of on etanercept. Reports hand swelling Report Status: Verified Date Reported: MAY 10, 2024 Date Verified: MAY 10, 2024 Wood Furniture Assembler E-Sig:/ES/ANTONELLA BEARD JR Report: Study: Weight-bearing AP, [...] Primary Interpreting Staff: ANTONELLA BEARD JR, Radiologist (Wood Furniture Assembler) /ANTONELLA CANO JR [facility] May 10, 2024 10:35 AM SPINE LUMBOSACRAL MIN 4 VIEWS: JAYLAN ALVAREZ [id number] -1980 F Exm Date: MAY 10, 2024@10:35 Req Phys: LEANDRA BAEZ V Pat Loc: CWM/NO/RHEUMATOLOGY B (Req'g L Img Loc: [facility] 1 Service: Unknown Screen: Patient answered no [facility] [place] [address] (Case 25 COMPLETE) SPINE LUMBOSACRAL MIN 4 VIEWS (RAD Detailed) CPT:26716 Reason for Study: Evaluate for evid of spondyloarthropathy Clinical History: Pt with hx of on etanercept Report Status: Verified Date Reported: MAY 10, 2024 Date Verified: MAY 10, 2024 Wood Furniture Assembler E-Sig:/ES/ANTONELLA BEARD JR Report: Study: AP, left [...] Primary Interpreting Staff: ANTONELLA BEARD JR, Radiologist (Wood Furniture Assembler) /EAANTONELLA ODEN JR [facility] May 10, 2024 10:35 AM SPINE CERVICAL, 4 OR 5 VIEWS: JAYLAN ALVAREZ [id number] -1980 F Exm Date: MAY 10, 2024@10:35 Req Phys: LEANDRA BAEZ V Pat Loc: CWM/NO/RHEUMATOLOGY B (Req'g L Img Loc: [facility] 1 Service: Unknown Screen: Patient answered no [facility] [place] [address] (Case 26 COMPLETE) SPINE CERVICAL, 4 OR 5 VIEWS (RAD Detailed) CPT:27481 Reason for Study: Evaluate for evid of spondyloarthropathy Clinical History: Pt with hx of on etanercept Report Status: Verified Date Reported: MAY 10, 2024 Date Verified: MAY 10, 2024 Wood Furniture Assembler E-Sig:/ES/ANTONELLA BEARD JR Report: Study: AP, lateral [...] Primary Interpreting Staff: ANTONELLA BEARD JR, Radiologist (Wood Furniture Assembler) /ANTONELLA CANO JR [facility] May 10, 2024 10:34 AM FOOT 3 OR MORE VIEWS (RIGHT): JAYLAN ALVAREZ [id number] -1980 F Exm Date: MAY 10, 2024@10:34 Req Phys: LEANDRA BAEZ V Pat Loc: CWM/NO/RHEUMATOLOGY B (Req'g L Img Loc: [facility] 1 Service: Unknown Screen: [place] [address] (Case 23 COMPLETE) HAND 3 OR MORE VIEWS(LEFT) (RAD Detailed) CPT:91919 Reason for Study: Evaluate for evid of erosion - bilateral exam (Case 24 COMPLETE) HAND3 OR MORE VIEWS(RIGHT) (RAD Detailed) CPT:42408 Clinical History: Pt with hx of on etanercept. Reports foot swelling also hx of kidney stones Report Status: Verified Date Reported: MAY 10, 2024 Date Verified: MAY 10, 2024 Wood Furniture Assembler E-Sig:/ES/ANTONELLA BEARD JR Report: Study: AP, [place], [...] Primary Interpreting Staff: ANTONELLA BEARD JR, Radiologist (Wood Furniture Assembler) /ANTONELLA CANO JR [facility] Encounter Notes: All associated encounter notes This section contains the clinical notes associated to the Encounter. Date/Time Encounter Note(s) Provider Source May 14, 2024 02:56 PM TELEHEALTH CONSULT: LOCAL TITLE: CONSULT REPORT/[employer] CONNECT PSYCHOLOGY NOTE STANDARD TITLE: TELEHEALTH CONSULT DATE OF NOTE: MAY 14, 2024@14:56 ENTRY DATE: MAY 14, 2024@14:56:34 AUTHOR: ROBERT RODRIGUEZ COSIGNER: URGENCY: STATUS: COMPLETED [facility] Video Connect (VVC) Standard Documentation VVC Clinician Resources Only: E911 (Emergency Call Relay Center): [phone] National [employer] Crisis Line - 988 then press #1. [facility] Suicide Coordinator [phone], Ext. [phone]; Back-up Ext. [phone] [place] Police, Kassandra HERNANDEZ [phone] Introduction: Visit is being conducted by [employer]. identified with 2 identifiers: [X] Full Name [X] Date of [ ] VA ID Card Emergency Plan: confirmed and/or provided the following information in case of emergency or technology failure. PATIENT PHONE - PHONE NUMBER [CELLULAR] - Is patient phone number correct, if not, enter below: 's phone number: JAYLAN ALVAREZ [address], [place], [address] 's present location and address for appointment: see chart [place]'s emergency contact name and phone number: see chart [place] reported that location is private and safe: Yes Informed Consent: informed of the risks and benefits of Telehealth video care. has the right to refuse video services. If refuses video visit, a [id number]-[id number]-vhkb visit will be scheduled. verbalized consent for this video visit: Yes provided consent for any other persons present for visit: N/A If yes, who and relationship to patient: Secure visit: Visit was locked for security and privacy:Yes INFORMED CONSENT TO PARTICIPATE IN ASSESSMENT: At beginning of session reviewed rights and limits of confidentiality, mandatory reporting situations, duty to warn and protect, Brizuela Warning, (if treatment team finds patient to be an acute danger to himself or others, that this information could be relayed to a court of law and presented to a food services coordinator), and DOD access for active duty service members. Provided Suicide Prevention Hotline number, and other contact numbers as necessary. Nash identified with 2 identifiers: [X] Patient Name [X] Visual recognition SESSION: 1 VISIT DURATION: 50 min SESSION FOCUS: history gathering, building rapport, identifying treatment goals PSYCHOSOCIAL HISTORY: Nash reported that her parents took good care of her physical needs but not her emotional needs. She described feeling unheard much of the time. Nash stated that her parents emphasized going to work and not taking a day off. She stated that her upbringing influenced her parenting style and work ethic. She has focused on providing more emotional support for her children. Nash reported that she has a 19-year-old son with autism spectrum disorder and a 15-year-old daughter. She is proud of how she has parented them and her emotional connection with both of them. Nash reported that she has a small support system. She described having a close friend who she grew up with and that they see eachother inconsistently. She does not feel she can confide in her parents for emotional support. 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 She typically works 2nd shift. Her hobbies include Jiu Jitsu, Yoga, and Biking for special causes. SESSION CONTENT: Nash reported that that she is seeking psychotherapy to address depressive episodes. She stated that her depressed moods accompany crying spells, low motivation, anhedonia, isolation, feelings of hopelessness and purposelessness, thoughts of , and fatigue. She described not wanting to deal with anything so she stays in bed when she is not working. Nash shared that her depressive episodes can last weeks to months, and return after 2-6 week reprieve. She indicated that her depressive episodes in part appear to be triggered by losses (i.e., grandmother's passing in Mar 2023) or reminders of loss (i.e., finding a coworker's suicide note). Nash reported that she has not engaged in her hobbies in the past 3 months due to depressed mood and her work schedule. She added that she had a 5-6 month depressive episode in 2022, around the time her grandmother passed, where she stopped engaging in non- essential activities. Nash explained that she went to work, but mostly laid in bed outside of work. She added that she stopped engaging in home projects and laundry. Nash explained that she had brief bouts of depression as a child and teenager when thinking about the day she may lose the people she loves. She stated that this would result in crying spells and low mood for several hours or days. Nash reported that she did not lose anyone close with her until she was in the but often had a sense of impending loss. Nash shared that she also struggles with feeling overwhelmed much of the time. She connected her overwhelm to fear and worry of losing her loved ones (i.e., her son going missing; her daughter not being situationally aware and possibly getting into situations that are not safe). Nash has been working with Dr. Louie for psychiatric medication management since May 2023. Substance use history, full trauma history, and PTSD will be assessed in the next session. HISTORY: Nash joined the [employer] in 1998 and served for 8 years. Nash worked in [employer] affairs in [facility] and was deployed twice. She reported seeing many bodies and that she lost friends in that deployment. See more below. 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 She stated that this was her first experience with loss. Nash noted that her aunt in a car accident a week later while she was still deployed. She lost her close friend from the to suicide years later. RISK ASSESSMENT: Nash reported that she feels purposeless when she is depressed. She endorsed passive suicidal ideation (i.e,. If something happened to me, I wouldn't mind My kids would be okay if I was gone Nothing matters ) but denied thoughts of killing or harming herself. She denied a history of suicidal intent and behavior (attempts and preparatory behavior). Nash is aware of actions to take if he/she feels unsafe including the use of the VCL ([phone]), 911, walk in services, and urgent care/emergency room. The is aware of how to contact the clinic should he/she require additional services prior to the next appointment. Please see CSSR below. MENTAL STATUS AND BEHAVIORAL OBSERVATIONS: [place] arrived to the appointment on time and was dressed appropriate to context. [place] was oriented x4, and her thought process was linear, logical, and coherent. There was no evidence of a thought disorder. She described her mood as depressed and her affect was expressive, stable, and consistent with stated mood. She was tearful at times. Speech and motor activity fell within normal limits. [place] was polite, cooperative, and engaged. DSM5 DIAGNOSES: Major Depressive Disorder, Moderate, Recurrent; R/O PTSD NEXT STEPS: Our next session is scheduled for 05/28 at 1pm [facility]. The plan is to continue diagnostic assessment, focused on PTSD, in the next session. Suicide Screen: C-SSRS Screening Rich-Suicide Severity Rating Scale (C-SSRS Screener) 1. Over the past month, have you wished you were or wished you could go to sleep and not wake up? No 2. Over the past month, have you [...] required due to responses to other questions. Tobacco Use Screening: The patient has never smoked cigarettes. The patient has never used other types of tobacco. Sexual Orientation: The patient thinks of their sexual orientation as: Straight or Heterosexual /mat/ Robert Rodriguez Psy.D. SEXUAL TRAUMA/WOMEN'S PSYCHOLOGIST Signed: 05/14/2024 15:39 ROBERT RODRIGUEZ CNTRL WSTRN [facility]
--- OUTSIDE RECORDS SUMMARY | 2024-05-14 09:34 | XMS_ITS ---
Author Name [facility] [facility] [place] [facility] [facility] [place] Address [address] [place] [address] Care Team Providers Care Sectionizer Name Role Phone TRINH FRANCO Primary Care [...] Patient's Relationship to Policy [facility] [employer] ([phone]) PRESCRIPT ION [facility] Jun 07, 2022 [id number] ALVAREZ PATIENT Selected Encounter This section includes the information on record at [place] for the Encounter. Date/Time Encounter Type Encounter Description Reason Provider Source May 14, 2024 01:34 PM QNHP OL DIG ASSMT&MGMT 21+ CLINICAL PHARMACY ICD-10-CM M45.9 Ankylosing spondylitis of unspecified sites in spine [facility] Encounter Template Text not used by [place] Assessments - Encounter Diagnoses This section includes the primary and secondary diagnoses documented for the Encounter. Date/Time Primary/Secondary Diagnosis Diagnosis Name Provider Source May 14, 2024 01:54 PM PRIMARY Ankylosing spondylitis of unspecified sites in spine VILMA,RICHELLE MICHELLE III [facility] Plan of Treatment: Future Appointments (+ 6 months) and Future Tests (+/- 45 days) The Plan of Treatment section includes [facility] care activities for the [facility] [place] [facility] This section includes future appointments and future orders which are active, pending or scheduled. Future Appointments This section includes appointments that were scheduled to occur 6 months from the date of the Encounter, up to a maximum of 20 appointments. The data comes from all [place] treatment facilities. Appointment Date/Time Appointment Type Appointme nt Facility Name May 28, 2024 01:00 PM AMBULATORY - PSYCHIATRY [facility] Jun 11, 2024 01:30 PM AMBULATORY - PSYCHIATRY [facility] [place] Jun 11, 2024 02:00 PM AMBULATORY - PSYCHIATRY [facility] [place] Jun 15, 2024 10:45 AM AMBULATORY - MEDICINE [facility] [place] [facility] Jun 18, 2024 01:00 PM AMBULATORY - PSYCHIATRY [facility] [place] Jul 02, 2024 01:00 PM AMBULATORY - PSYCHIATRY [facility] [place] Jul 09, 2024 01:00 PM AMBULATORY - PSYCHIATRY [facility] [place] Jul 16, 2024 01:00 PM AMBULATORY - PSYCHIATRY [facility] [place] Jul 19, 2024 10:00 AM AMBULATORY - PSYCHIATRY [facility] [place] Jul 23, 2024 01:00 PM AMBULATORY - PSYCHIATRY [facility] [place] Jul 30, 2024 01:00 PM AMBULATORY - PSYCHIATRY [facility] [place] Aug 13, 2024 01:00 PM AMBULATORY - PSYCHIATRY [facility] [place] Aug 19, 2024 02:00 PM AMBULATORY - MEDICINE [facility] [place] [facility] Aug 20, 2024 01:00 PM AMBULATORY - PSYCHIATRY [facility] [place] Aug 27, 2024 01:00 PM AMBULATORY - PSYCHIATRY [facility] [place] Sep 10, 2024 01:00 PM AMBULATORY - PSYCHIATRY [facility] [place] Sep 16, 2024 09:00 AM [facility] Sep 17, 2024 01:00 PM [facility] Sep 24, 2024 11:30 AM [facility] Oct 08, 2024 01:00 PM AMBULATORY - PSYCHIATRY [facility] Lab Results: +/- 30 days of the encounter This section includes the Chemistry and Hematology Lab Results on record with [place] for the patient. Radiology Reports and Pathology Reports are provided separately, in subsequent sections. Lab Results This section contains the Chemistry/Hematology Results that were resulted 30 days before or 30 daysafter the date of the Encounter. Date/Time Source Result Type Result - Unit Interpretation Reference Range Specimen Type Comment May 10, 2024 08:51 AM [facility] HLA-B27 (QU) BLOOD Specimen Type: BLOOD Comment: normalcy status - Abnormal Test Performed by [employer], [employer] [facility], [address] [place] [address] Rodger Bender M.D., Ph.D., Director of Laboratories , [facility] [id number] TEST PERFORMED AT: , Ordering Provider: LEANDRA BAEZ V Report Released Date/Time: May 06, 2024 01:47 PM Reporting Lab: [facility] [address] [facility] [address] Performing Lab: [facility] [address] [address] HLA-B27 Positive Negative May 10, 2024 08:51 AM [facility] T-SPOT TB PANEL BLOOD Specimen Type: [...] test. For additional information, please refer to http://education.DiObex/faq/FAQ21 5 (This link is being provided for informational/ educational purposes only.) Test Performed by [employer], [employer] [facility], [address] [place] [address] Rodger Bender M.D., Ph.D., Director of Laboratories , [place] [id number] TEST PERFORMED AT: , Ordering Provider: LEANDRA BAEZ V Report Released Date/Time: May 06, 2024 01:47 PM Reporting Lab: [facility] [address] [facility] [address] Performing Lab: [facility] [address] [address] C-[id number] (o) Negative Negative T-SPOT-PNLA 0 T-SPOT-PNLB 2 D-[id number] Passed E-[id number]-HCWRYIN Passed May 10, 2024 08:51 AM [facility] JOSEPH SCREEN/TITER SERUM Specimen Type: SERUM No comment entered. Ordering Provider: LEANDRA BAEZ V Report Released Date/Time: May 06, 2024 01:47 PM Reporting Lab: [facility] [address] [facility] [address] Performing Lab: [facility] [address] [facility] [address] JOSEPH SCREEN NEG NEG <1:40 May 10, 2024 08:51 AM [facility] HEPATITIS B SURFACE ANTIBODY (HBsAb)-WH SERUM [...] May 06, 2024 01:47 PM Reporting Lab: [address] [address] Performing Lab: [address] [address] HBsAb REACTIVE Non Reactive May 10, 2024 08:51 AM [facility] HEPATITIS B CORE (Total) Ab SERUM [...] May 06, 2024 01:47 PM Reporting Lab: [address] [address] Performing Lab: [address] [address] HEPATITIS B CORE (Total) Ab Non Reactive Non Reactive May 10, 2024 08:51 AM [facility] HEPATITIS C ANTIBODY (HCV)-ARC SERUM Specimen Type: SERUM Comment: Hep C Ab: No HCV antibody detected. If recent infection is suspected or other evidence suggests HCV infection, consider HCV nucleic acid testing Ordering Provider: LEANDRA BAEZ V Report Released Date/Time: May 06, 2024 01:47 PM Reporting Lab: [address] [address] Performing Lab: [address] [address] HEPATITIS C ANTIBODY NON-REACTIVE NON-RE ACTIVE May 10, 2024 08:51 AM [facility] CBC BLOOD Specimen Type: BLOOD No comment entered. Ordering Provider: LEANDRA BAEZ V Report Released Date/Time: May 06, 2024 01:47 PM Reporting Lab: [address] [address] Performing Lab: [address] [address] WBC 5.62 10*3/uL 4.50-11.00 RBC 3.76 10*6/uL L 3.93-5.16 HGB 12.3 g/dL 12-15.2 HCT 35.8 L 36.6-45.6 MCV 95.2 fL 82-99 MCHC 34.4 g/dL 30.8-35.1 PLT 322 10*3/uL 140-360 RDW-CV 11.8 L 12.0-16.0 MCH 32.7 pg H 26.2-32.6 May 10, 2024 08:51 AM [facility] LIVER FUNCTION SERUM Specimen Type: SERUM No comment entered. Ordering Provider: LEANDRA BAEZ V Report Released Date/Time: May 06, 2024 01:47 PM Reporting Lab: [address] [address] Performing Lab: [address] [address] PROTEIN,TOTAL 6.3 g/dL 6.0-8.3 ALBUMIN 3.5 g/dL 3.5-5.0 ALKALINE PHOSPHATASE 46 U/L 40-150 AST 14 U/L 5-34 ALT 11 U/L BILIRUBIN, TOTAL 0.4 mg/dL 0.2-1.2 May 10, 2024 08:51 AM [facility] [place] URIC ACID SERUM Specimen Type: SERUM No comment entered. Ordering Provider: LEANDRA BAEZ V Report Released Date/Time: May 06, 2024 01:47 PM Reporting Lab: [facility] [place] [facility] [address] [facility] [address] Performing Lab: [facility] [place] [facility] [address] [facility] [address] URIC ACID 4.4 mg/dL 2.6-6 May 10, 2024 08:51 AM [facility] [place] [facility] TSH SERUM Specimen Type: SERUM No comment entered. Ordering Provider: LEANDRA BAEZ V Report Released Date/Time: May 06, 2024 01:47 PM Reporting Lab: [facility] [place] [facility] [address] [facility] [address] Performing Lab: [facility] [place] [facility] [address] [facility] [address] TSH 1.38 u[IU]/mL 0.35-5.00 May 10, 2024 08:51 AM [facility] [place] [facility] PO4 SERUM Specimen Type: SERUM No comment entered. Ordering Provider: LEANDRA BAEZ V Report Released Date/Time: May 06, 2024 01:47 PM Reporting Lab: [facility] [place] [facility] [address] [facility] [address] Performing Lab: [place] [facility] [place] [facility] [address] [facility] [address] PO4 4.0 mg/dL 2.5-5.0 May 10, 2024 08:51 AM [facility] BASIC METABOLIC PANEL (non-fasting) SERUM Spe cimen Type: SERUM No comment entered. Ordering Provider: LEANDRA BAEZ V Report Released Date/Time: May 06, 2024 01:47 PM Reporting Lab: [facility] [place] [address] [address] Performing Lab: [place] [facility] [place] [address] [address] UREA NITROGEN 20 mg/dL 7-25 GLUCOSE 83 [...] and tobacco- related health factors from the [place] facility where the Encounter took place. Current Smoking Status This section includes the most current smoking, or tobacco-related health factor, from the [place] facility where the Encounter took place. Date/Time Current Smoking Status Comment Facil ity May 14, 2024 01:00 PM [place]-TOBACCO NEVER U SED OTHER TYPE [facility] Tobacco Use History This section includes a history of the smoking, or tobacco-related health factors, that were collected on or before the date of the Encounter. The data comes from the [place] facility where the Encounter took place. Date/Time Smoking Status/Tobacco Use Comment F acility May 14, 2024 01:00 [facility] Advance Directives: All historical and current Section Date Range: From patient's date of to the date document was created. This section includes ALL of a patient's completed or amended [place] Advance and Rescinded Directives. The entries below indicate that a directive exists for the patient, but an actual copy is not included with this document. The data comes from all [place] facilities. Date Advance Directives Provider Source Mar 25, 2023 ADVANCE DIRECTIVE [facility] Radiology Reports: +/- 30 days of the [...] the Encounter. The data comes from all [place] treatment facilities. Date/Time Radiology Report Provider Source May 10, 2024 10:36 AM HAND 3 OR MORE VIEWS: JAYLAN ALVAREZ [id number] -1980 F Exm Date: MAY 10, 2024@10:36 Req Phys: LEANDRA BAEZ V Pat Loc: [facility]/NO/RHEUMATOLOGY B (Req'g L Img Loc: [facility] 1 Service: Unknown Screen: Patient [place] [address] (Case 27 COMPLETE) FOOT 3 OR MORE VIEWS (RIGHT) (RAD Detailed) CPT:91761 Proc Modifiers : RIGHT CPT Modifiers : RT RIGHT SIDE Reason for Study: Evaluate for evid of spondyloarthropathy/erosion (Case 28 COMPLETE) FOOT 3 OR MORE VIEWS(LEFT) (RAD Detailed) CPT:46890 Proc Modifiers : LEFT CPT Modifiers : LT LEFT SIDE Clinical History: Pt with hx of on etanercept. Reports hand swelling Report Status: Verified Date Reported: MAY 10, 2024 Date Verified: MAY 10, 2024 Statistical Secretary E-Sig:/ES/ANTONELLA BEARD JR Report: Study: Weight-bearing AP, [...] Primary Interpreting Staff: ANTONELLA BEARD JR, Radiologist (Statistical Secretary) /EAANTONELLA ODEN JR [facility] May 10, 2024 10:35 AM SPINE LUMBOSACRAL MIN 4 VIEWS: JAYLAN ALVAREZ [id number] -1980 F Exm Date: MAY 10, 2024@10:35 Req Phys: LEANDRA BAEZ V Pat Loc: C[facility]/NO/RHEUMATOLOGY B (Req'g L Img Loc: [facility] 1 Service: Unknown Screen: Patient answered no [place] [address] (Case 25 COMPLETE) SPINE LUMBOSACRAL MIN 4 VIEWS (RAD Detailed) CPT:13827 Reason for Study: Evaluate for evid of spondyloarthropathy Clinical History: Pt with hx of on etanercept Report Status: Verified Date Reported: MAY 10, 2024 Date Verified: MAY 10, 2024 Statistical Secretary E-Sig:/ES/ANTONELLA BEARD JR Report: Study: AP, left [...] Primary Interpreting Staff: ANTONELLA BEARD JR, Radiologist (Statistical Secretary) /ANTONELLA CANO JR [facility] May 10, 2024 10:35 AM SPINE CERVICAL, 4 OR 5 VIEWS: JAYLAN ALVAREZ [id number] -1980 F Exm Date: MAY 10, 2024@10:35 Req Phys: LEANDRA BAEZ V Pat Loc: [facility]/NO/RHEUMATOLOGY B (Req'g L Img Loc: [facility] 1 Service: Unknown Screen: Patient answered no [place] [facility] [place] [address] (Case 26 COMPLETE) SPINE CERVICAL, 4 OR 5 VIEWS (RAD Detailed) CPT:47182 Reason for Study: Evaluate for evid of spondyloarthropathy Clinical History: Pt with hx of on etanercept Report Status: Verified Date Reported: MAY 10, 2024 Date Verified: MAY 10, 2024 Statistical Secretary E-Sig:/ES/ANTONELLA BEARD JR Report: Study: AP, lateral [...] Primary Interpreting Staff: ANTONELLA BEARD JR, Radiologist (Statistical Secretary) /ANTONELLA CANO JR [facility] May 10, 2024 10:34 AM FOOT 3 OR MORE VIEWS (RIGHT): JAYLAN ALVAREZ [id number] -1980 F Exm Date: MAY 10, 2024@10:34 Req Phys: LEANDRA BAEZ V Pat Loc: [facility]/NO/RHEUMATOLOGY B (Req'g L Img Loc: [facility] 1 Service: Unknown Screen: [place] [address] (Case 23 COMPLETE) HAND 3 OR MORE VIEWS(LEFT) (RAD Detailed) CPT:62545 Reason for Study: Evaluate for evid of erosion - bilateral exam (Case 24 COMPLETE) HAND3 OR MORE VIEWS(RIGHT) (RAD Detailed) CPT:07036 Clinical History: Pt with hx of on etanercept. Reports foot swelling also hx of kidney stones Report Status: Verified Date Reported: MAY 10, 2024 Date Verified: MAY 10, 2024 Statistical Secretary E-Sig:/ES/ANTONELLA BEARD JR Report: Study: AP, [place], [...] Primary Interpreting Staff: ANTONELLA BEARD JR, Radiologist (Statistical Secretary) /ANTONELLA CANO JR [facility] Encounter Notes: All associated encounter notes This section contains the clinical notes associated to the Encounter. Date/Time Encounter Note(s) Provider Source May 14, 2024 01:36 PM PHARMACY CONSULT: LOCAL TITLE: CONSULT REPORT/PRIOR AUTH FACILITY PADR STANDARD TITLE: PHARMACY CONSULT DATE OF NOTE: MAY 14, 2024@13:36 ENTRY DATE: MAY 14, 2024@13:37:03 AUTHOR: RICHELLE ESPARZA EXP COSIGNER: URGENCY: STATUS: COMPLETED The medical record has been reviewed with regard to this restricted drug request. Medication requested: ETANERCEPT 50MG/ML INJ SYRINGE Medication indication: Spondyloarthropathy Medical history relevant to this request: 43 y/o female with HTN, GERD, and Ankylosing spondylitis. Rheumatology note on 05/06/24: In 2006, developed knee pain and swelling - said blood work was positive for the gene for Ankylosing spondylitis - has been on Enbrel since 2006 - no other DMARDs. Currently still taking 50mg weekly T-spot negative. Hep c nonreactive, Hep B consistent with immunization (works in [facility]) The request is approved - The patient previously responded to a non-formulary or non-preferred agent and serious risk is associated with a change the preferred formulary alternative(s) /mat/ RICHELLE ESPARZA III Pharm.D Clinical Pharmacy Provider Signed: 05/14/2024 13:54 RICHELLE ESPARZA III [facility]
--- OUTSIDE RECORDS SUMMARY | 2024-05-28 09:00 | XMS_ITS | Encounter Summary ---
Author Name [facility] [place] [facility] [place] Address [address] [place] [address] Care Team Providers Care Head Bone Grinder Name Role Phone TRINH FRANCO Primary Care [...] Patient's Relationship to Policy [employer] ([id number]) PRESCRIPT ION GIC Jun 07, 2022 [id number] Jel[address] ALVAREZ PATIENT Selected Encounter This section includes the information on record at [place] for the Encounter. Date/Time Encounter Type Encounter Description Reason Provider Source May 28, 2024 01:00 PM PSYTX W PT 45 MINUTES [facility] - IND ICD-10-CM F43.12 Post-traumatic stress disorder, chronic CAMPONOGARA,SA LIYAH E Encounter Template Text not used by [place] Assessments - Encounter Diagnoses This section includes the primary and secondary diagnoses documented for the Encounter. Date/Time Primary/Secondary Diagnosis Diagnosis Name Provider Source May 28, 2024 03:18 PM PRIMARY Post-traumatic stress disorder, chronic CAMPONOGARA,SA LIYAH [place] [facility] [place] [facility] May 28, 2024 03:18 PM SECONDARY Dysthymic disorder SA LIYAH RODRIGUEZ [place] [facility] [place] [facility] Plan of Treatment: Future Appointments (+ 6 months) and Future Tests (+/- 45 days) The Plan of Treatment section includes future care activities for the patient from all [place] treatmentfacilities. This section includes future appointments and future orders which are active, pending or scheduled. Future Appointments This section includes appointments that were scheduled to occur 6 months from the date of the Encounter, up to a maximum of 20 appointments. The data comes from all [place] treatment facilities. Appointment Date/Time Appointment Type Appointme nt Facility Name Jun 11, 2024 01:30 PM AMBULATORY - PS[facility]CHIATRY [facility] [place] [facility] Jun 11, 2024 02:00 PM AMBULATORY - PSYCHIATRY [facility] [place] [facility] Jun 15, 2024 10:45 AM AMBULATORY - MEDICINE [facility] [place] [facility] Jun 18, 2024 01:00 PM AMBULATORY - PSYCHIATRY [facility] [place] [facility] Jul 02, 2024 01:00 PM AMBULATORY - PSYCHIATRY [facility] [place] [facility] Jul 09, 2024 01:00 PM AMBULATORY - PSYCHIATRY [facility] [place] [facility] Jul 16, 2024 01:00 PM AMBULATORY - PSYCHIATRY [facility] [place] [facility] Jul 19, 2024 10:00 AM AMBULATORY - PSYCHIATRY [facility] [place] [facility] Jul 23, 2024 01:00 PM AMBULATORY - PSYCHIATRY [facility] [place] [facility] Jul 30, 2024 01:00 PM AMBULATORY - PSYCHIATRY [facility] [place] [facility] Aug 13, 2024 01:00 PM AMBULATORY - PS[facility]CHIATRY [facility] [place] [facility] Aug 19, 2024 02:00 PM AMBULATORY - MEDICINE [facility] [place] [facility] Aug 20, 2024 01:00 PM AMBULATORY - PSYCHIATRY [facility] [place] [facility] Aug 27, 2024 01:00 PM AMBULATORY - PSYCHIATRY [facility] [place] [facility] Sep 10, 2024 01:00 PM AMBULATORY - PS[facility]CHIATRY [facility] [place] [facility] Sep 16, 2024 09:00 AM AMBULATORY - MED[facility] Sep 17, 2024 01:00 PM [facility] Sep 24, 2024 11:30 AM [facility] Oct 08, 2024 01:00 PM [facility] October 29, 2024 01:00 PM AMBULATORY - PSYCHIATRY [facility] Lab Results: +/- 30 days of the encounter This section includes the Chemistry and Hematology Lab Results on record with [place] for the patient. Radiology Reports and Pathology Reports are provided separately, in subsequent sections. Lab Results This section contains the Chemistry/Hematology Results that were resulted 30 days before or 30 daysafter the date of the Encounter. Date/Time Source Result Type Result - Unit Interpretation Reference Range Specimen Type Comment May 10, 2024 08:51 AM [facility] HLA-B27 (QU) BLOOD Specimen Type: BLOOD Comment: normalcy status - Abnormal Test Performed by [facility], [email or web address] [facility], [address] [place] [address] Rodger Bender M.D., Ph.D., Director of Laboratories , [facility] [id number] TEST PERFORMED AT: , Ordering Provider: LEANDRA BAEZ V Report Released Date/Time: May 06, 2024 01:47 PM Reporting Lab: [facility] [address] [facility] [address] Performing Lab: [facility] [address] [address] HLA-B27 Positive Negative May 10, 2024 08:51 AM [facility] T-SPOT TB PANEL BLOOD Specimen Type: [...] test. For additional information, please refer to http://education.[employer]/faq/FAQ21 5 (This link is being provided for informational/ educational purposes only.) Test Performed by [employer], [email or web address] [facility], [address] [place] [address] Rodger Bender M.D., Ph.D., Director of Laboratories , [place] [id number] TEST PERFORMED AT: , Ordering Provider: LEANDRA BAEZ V Report Released Date/Time: May 06, 2024 01:47 PM Reporting Lab: [facility] [address] [facility] [address] Performing Lab: [facility] [address] [address] A-[id number] (o) Negative Negative T-SPOT-PNLA 0 T-SPOT-PNLB 2 W-UKRU-[id number] Passed I-KRQQ-[id number] Passed May 10, 2024 08:51 AM [facility] JOSEPH SCREEN/TITER SERUM Specimen Type: SERUM No comment entered. Ordering Provider: LEANDRA BAEZ V Report Released Date/Time: May 06, 2024 01:47 PM Reporting Lab: [facility] [address] [facility] [address] Performing Lab: [facility] ADAC[facility] [address] [facility] [address] JOSEPH SCREEN NEG NEG <1:40 May 10, 2024 08:51 AM [facility] HEPATITIS B CORE (Total) Ab SERUM [...] May 06, 2024 01:47 PM Reporting Lab: [facility] [employer] [address] Performing Lab: [address] [address] HEPATITIS B CORE (Total) Ab Non Reactive Non Reactive May 10, 2024 08:51 AM [facility] HEPATITIS B SURFACE ANTIBODY (HBsAb)-WH SERUM [...] May 06, 2024 01:47 PM Reporting Lab: [facility] [employer] [address] Performing Lab: [address] [address] HBsAb REACTIVE Non Reactive May 10, 2024 08:51 AM [facility] HEPATITIS C ANTIBODY (HCV)-ARC SERUM Specimen Type: SERUM Comment: Hep C Ab: No HCV antibody detected. If recent infection is suspected or other evidence suggests HCV infection, consider HCV nucleic acid testing Ordering Provider: LEANDRA BAEZ V Report Released Date/Time: May 06, 2024 01:47 PM Reporting Lab: [address] [address] Performing Lab: [address] [address] HEPATITIS C ANTIBODY NON-REACTIVE NON-RE ACTIVE May 10, 2024 08:51 AM [facility] CBC BLOOD Specimen Type: BLOOD No comment entered. Ordering Provider: LEANDRA BAEZ V Report Released Date/Time: May 06, 2024 01:47 PM Reporting Lab: [address] [address] Performing Lab: [address] [address] WBC 5.62 10*3/uL 4.50-11.00 RBC 3.76 10*6/uL L 3.93-5.16 HGB 12.3 g/dL 12-15.2 HCT 35.8 L 36.6-45.6 MCV 95.2 fL 82-99 MCHC 34.4 g/dL 30.8-35.1 PLT 322 10*3/uL 140-360 RDW-CV 11.8 L 12.0-16.0 MCH 32.7 pg H 26.2-32.6 May 10, 2024 08:51 AM [facility] URIC ACID SERUM Specimen Type: SERUM No comment entered. Ordering Provider: LEANDRA BAEZ V Report Released Date/Time: May 06, 2024 01:47 PM Reporting Lab: [address] [address] Performing Lab: [address] [address] URIC ACID 4.4 mg/dL 2.6-6 May 10, 2024 08:51 AM [facility] LIVER FUNCTION SERUM Specimen Type: SERUM No comment entered. Ordering Provider: LEANDRA BAEZ V Report Released Date/Time: May 06, 2024 01:47 PM Reporting Lab: [facility] [address] [facility] [address] Performing [facility]: [facility]USE[facility] [address] [facility] [address] PROTEIN,TOTAL 6.3 g/dL 6.0-8.3 ALBUMIN 3.5 g/dL 3.5-5.0 ALKALINE PHOSPHATASE 46 U/L 40-150 AST 14 U/L 5-34 ALT 11 U/L BILIRUBIN, TOTAL 0.4 mg/dL 0.2-1.2 May 10, 2024 08:51 AM [facility] PO4 SERUM Specimen Type: SERUM No comment entered. Ordering Provider: LEANDRA BAEZ V Report Released Date/Time: May 06, 2024 01:47 PM Reporting Lab: [facility] [address] [facility] [address] Performing [facility]: [facility]ENTERUSETS [address] [address] PO4 4.0 mg/dL 2.5-5.0 May 10, 2024 08:51 AM [facility] TSH SERUM Specimen Type: SERUM No comment entered. Ordering Provider: LEANDRA BAEZ V Report Released Date/Time: May 06, 2024 01:47 PM Reporting Lab: [facility] [address] [facility] [address] Performing [facility]: [facility]ENTER[facility]ETS [address] [address] TSH 1.38 u[IU]/mL 0.35-5.00 May 10, 2024 08:51 AM [facility] BASIC METABOLIC PANEL (non-fasting) SERUM Spe cimen Type: SERUM No comment entered. Ordering Provider: LEANDRA BAEZ V Report Released Date/Time: May 06, 2024 01:47 PM Reporting Lab: [facility] [address] [address] Performing Lab: [facility] [address] [facility] [address] UREA NITROGEN 20 mg/dL 7-25 GLUCOSE 83 [...] and tobacco- related health factors from the [place] facility where the Encounter took place. Current Smoking Status This section includes the most current smoking, or tobacco-related health factor, from the [place] facility where the Encounter took place. Date/Time Current Smoking Status Comment Facil ity May 14, 2024 01:00 PM [place]-TOBACCO NEVER U SED CIGARETTES [facility] Tobacco Use History This section includes a history of the smoking, or tobacco-related health factors, that were collected on or before the date of the Encounter. The data comes from the [place] facility where the Encounter took place. Date/Time Smoking Status/Tobacco Use Comment F acility May 14, 2024 01:00 PM [place]-TOBACCO NEVER U SED OTHER TYPE [facility] Advance Directives: All historical and current Section Date Range: From patient's date of to the date document was created. This section includes ALL of a patient's completed or amended [place] Advance and Rescinded Directives. The entries below indicate that a directive exists for the patient, but an actual copy is not included with this document. The data comes from all [place] facilities. Date Advance Directives Provider Source Mar 25, 2023 ADVANCE DIRECTIVE [facility] Radiology Reports: +/- 30 days of the [...] the Encounter. The data comes from all [place] treatment facilities. Date/Time Radiology Report Provider Source May 10, 2024 10:36 AM HAND 3 OR MORE VIEWS: JAYLAN ALVAREZ [id number] -1980 F Exm Date: MAY 10, 2024@10:36 Req Phys: BAEZLEANDRA V Pat Loc: CWM/NO/RHEUMATOLOGY B (Req'g L Img Loc: [facility] 1 Service: Unknown Screen: Patient answered no [place] [address] (Case 27 COMPLETE) FOOT 3 OR MORE VIEWS (RIGHT) (RAD Detailed) CPT:90680 Proc Modifiers : RIGHT CPT Modifiers : RT RIGHT SIDE Reason for Study: Evaluate for evid of spondyloarthropathy/erosion (Case 28 COMPLETE) FOOT 3 OR MORE VIEWS(LEFT) (RAD Detailed) CPT:45597 Proc Modifiers : LEFT CPT Modifiers : LT LEFT SIDE Clinical History: Pt with hx of on etanercept. Reports hand swelling Report Status: Verified Date Reported: MAY 10, 2024 Date Verified: MAY 10, 2024 Hydraulic Jack Operator E-Sig:/ES/ANTONELLA BEARD JR Report: Study: Weight-bearing AP, [...] Primary Interpreting Staff: ANTONELLA BEARD JR, Radiologist (Hydraulic Jack Operator) /ANTONELLA CANO JR [facility] May 10, 2024 10:35 AM SPINE LUMBOSACRAL MIN 4 VIEWS: JAYLAN ALVAREZ [id number] -1980 F Exm Date: MAY 10, 2024@10:35 Req Phys: LEANDRA BAEZ V Pat Loc: CWM/NO/RHEUMATOLOGY B (Req'g L Img Loc: [facility] 1 Service: Unknown Screen: Patient answered no [facility] [place] [address] (Case 25 COMPLETE) SPINE LUMBOSACRAL MIN 4 VIEWS (RAD Detailed) CPT:02749 Reason for Study: Evaluate for evid of spondyloarthropathy Clinical History: Pt with hx of on etanercept Report Status: Verified Date Reported: MAY 10, 2024 Date Verified: MAY 10, 2024 Hydraulic Jack Operator E-Sig:/ES/ANTONELLA BEARD JR Report: Study: AP, left [...] Primary Interpreting Staff: ANTONELLA BEARD JR, Radiologist (Hydraulic Jack Operator) /ANTONELLA CANO JR [facility] May 10, 2024 10:35 AM SPINE CERVICAL, 4 OR 5 VIEWS: JAYLAN ALVAREZ [id number] -1980 F Exm Date: MAY 10, 2024@10:35 Req Phys: LEANDRA BAEZ Loc: CWM/NO/RHEUMATOLOGY B (Req'g L Img Loc: [facility] 1 Service: Unknown Screen: Patient answered no [facility] [place] [address] (Case 26 COMPLETE) SPINE CERVICAL, 4 OR 5 VIEWS (RAD Detailed) CPT:42834 Reason for Study: Evaluate for evid of spondyloarthropathy Clinical History: Pt with hx of on etanercept Report Status: Verified Date Reported: MAY 10, 2024 Date Verified: MAY 10, 2024 Hydraulic Jack Operator E-Sig:/ES/ANTONELLA BEARD JR Report: Study: AP, lateral [...] Primary Interpreting Staff: ANTONELLA BEARD JR, Radiologist (Hydraulic Jack Operator) /ANTONELLA CANO JR [facility] May 10, 2024 10:34 AM FOOT 3 OR MORE VIEWS (RIGHT): JAYLAN ALVAREZ [id number] -1980 F Exm Date: MAY 10, 2024@10:34 Req Phys: LEANDRA BAEZ V Pat Loc: CWM/NO/RHEUMATOLOGY B (Req'g L Img Loc: [facility] 1 Service: Unknown Screen: [place] [address] (Case 23 COMPLETE) HAND 3 OR MORE VIEWS(LEFT) (RAD Detailed) CPT:01933 Reason for Study: Evaluate for evid of erosion - bilateral exam (Case 24 COMPLETE) HAND3 OR MORE VIEWS(RIGHT) (RAD Detailed) CPT:25052 Clinical History: Pt with hx of on etanercept. Reports foot swelling also hx of kidney stones Report Status: Verified Date Reported: MAY 10, 2024 Date Verified: MAY 10, 2024 Hydraulic Jack Operator E-Sig:/ES/ANTONELLA BEARD JR Report: Study: AP, [place], [...] Primary Interpreting Staff: ANTONELLA BEARD JR, Radiologist (Hydraulic Jack Operator) /ANTONELLA CANO JR [facility] Encounter Notes: All associated encounter notes This section contains the clinical notes associated to the Encounter. Date/Time Encounter Note(s) Provider Source May 28, 2024 03:19 PM ADMINISTRATIVE NOTE: LOCAL TITLE: ADMINISTRATIVE NOTE STANDARD TITLE: ADMINISTRATIVE NOTE DATE OF NOTE: MAY 28, 2024@15:19 ENTRY DATE: MAY 28, 2024@15:20:01 AUTHOR: AZALEA RODRIGUEZ COSIGNER: URGENCY: STATUS: COMPLETED requested to cancel 06/11 1pm VVC appointment due to a conflicting appointment. We rescheduled for 06/11 at 2pm VV. /mat/ Azalea Rodriguez Psy.D. SEXUAL TRAUMA/WOMEN'S PSYCHOLOGIST Signed: 05/28/2024 15:20 Receipt Acknowledged By: 05/31/2024 14:15 /es/ NOBLE BURCH SUB PLANT MANAGER AZALEA RODRIGUEZ [place] [facility] May 28, 2024 02:55 PM TELEHEALTH NOTE: LOCAL TITLE: [place] VIDEO CONNECT PSYCHOLOGY NOTE STANDARD TITLE: TELEHEALTH NOTE DATE OF NOTE: MAY 28, 2024@14:55 ENTRY DATE: MAY 28, 2024@14:55:51 AUTHOR: AZALEA RODRIGUEZ COSIGNER: URGENCY: STATUS: COMPLETED [facility] ([facility]) Standard Documentation [facility] Clinician Resources Only: E911 (Emergency Call Relay Center): [phone] [facility] Crisis Line - 988 then press #1. [facility] Suicide Coordinator [phone], Ext. [phone]; Back-up Ext. [phone] [place] Police, Kassandra HERNANDEZ [phone] Introduction: Visit is being conducted by [place] [employer]. [place] identified with 2 identifiers: [X] Full Name [X] Date of [ ] VA ID Card Emergency Plan: confirmed and/or provided the following information in case of emergency or technology failure. PATIENT PHONE - PHONE NUMBER [CELLULAR] - Is patient phone number correct, if not, enter below: [place]'s phone number: JAYLAN ALVAREZ [address], [place], [address] 's present location and address for appointment: see chart [place]'s emergency contact name and phone number: see chart [place] reported that location is private and safe: Yes Informed Consent: [place] informed of the risks and benefits of Telehealth video care. [place] has the right to refuse video services. If refuses video visit, a [id number] visit will be scheduled. verbalized consent for this video visit: Yes [place] provided consent for any other persons present [...] court of law and presented to a warp tying machine tender), and DOD access for active duty service members. Provided Suicide Prevention Hotline number, and other contact numbers as necessary. Nash identified with 2 identifiers: [X] Patient Name [X] Visual recognition SESSION: 1 VISIT DURATION: 50 min SESSION FOCUS: history gathering, building rapport, identifying treatment goals PSYCHOSOCIAL HISTORY: Nash reported that her daughter's father is in recovery from substance use disorder (opiates). She stated that he remains inconsistently engaged in her daughter's life, but they have a positive relationship. She added that her daughter has recently started therapy to help cope and safely explore her gender identity, sexual orientation, and relationship with her father. Nash reported that she has been in an on-again, off-again relationship with a man for 5 years. She stated that he is dependable and demonstrates care by acts of service. Nash reported that they get along well when they are together and that he is happy in her presence. Nash reported that he has been unfaithful in the past and has excluded her from meeting anyone important to him (i.e., family, his teenage children). This is a source of a resentment, hurt, and distrust for her. Nash said that he is familiar, that they enjoy spending time together, and she has not been able to fully let him go when she's ended the relationship in the past. SESSION CONTENT: Nash was asked about additional traumatic and/or impactful experiences. Nash denied additional trauma history other than what was already shared in the previous session. 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 Nash explained that she frequently thinks about the service members who , especially those who in tragic ways, and how their loved ones must be experiencing their absence. Nash stated that she avoids watching crime related shows where there are autopsies and bodies, as it reminds her of it. SUBSTANCE USE: Nash denied history of substance misuse, abuse, and dependence. She reported consuming an average of 12 alcoholic beverages per year with no more than one drink per occasion. RISK ASSESSMENT: Nash endorsed passive suicidal ideation (i.e,. If something happened to me, I wouldn't mind My kids would be okay if I was gone Nothing matters ) but denied thoughts of killing or harming herself. She denied a history of suicidal intent and behavior (attempts and preparatory behavior). Nash is aware of actions to take if he/she feels unsafe including the use of the VCL ([phone]), 911, walk in services, and urgent care/emergency room. The is aware of how to contact the clinic should he/she require additional services prior to the next appointment. Please see CSSR below. MENTAL STATUS AND BEHAVIORAL OBSERVATIONS: Nash arrived to the appointment on time and was dressed appropriate to context. Nash was oriented x4, and her thought process was linear, logical, and coherent. There was no evidence of a thought disorder. She described her mood as depressed and her affect was expressive, stable, and consistent with stated mood. Speech and motor activity fell within normal limits. Nash was polite, cooperative, and engaged. DSM5 DIAGNOSES: Major Depressive Disorder, Moderate, Recurrent; R/O PTSD NEXT STEPS: Our next session is scheduled for 06/11 at 2pm [facility]. The plan is to continue diagnostic assessment, focused on PTSD, in the next session. Alcohol Use Screen (AUDIT-C): Alcohol Screen: SCREEN FOR ALCOHOL (AUDIT-C) An alcohol screening test (AUDIT-C) was negative (score=1). 1. How often did you have a drink containing alcohol in the past year? Consider a drink to be a 12 ounce can or bottle of regular beer, 8 ounces of malt liquor, a 5 ounce glass of table wine, or a 1.5 ounce shot of liquor (like scotch, gin, or vodka). Monthly or less 2. How many drinks containing alcohol did you have on a typical day when you were drinking in the past year? One or two drinks 3. How often did you have 4 or more drinks on one occasion in the past year? Never /es/ Azalea Rodriguez Psy.D. SEXUAL TRAUMA/WOMEN'S PSYCHOLOGIST Signed: 05/28/2024 15:19 AZALEA RODRIGUEZ [facility]
--- OUTSIDE RECORDS SUMMARY | 2024-06-11 09:30 | XMS_ITS | Encounter Summary ---
Author Name [facility] [place] Organization [place] Address [address] [place] [address] Care Team Providers Care Application Technician Name Role Phone TRINH FRANCO Primary Care [...] Patient's Relationship to Policy [facility] [employer] ([id number]) PRESCRIPT ION [facility] Jun 07, 2022 [id number] PATIENT Selected Encounter This section includes the information on record at [place] for the Encounter. Date/Time Encounter Type Encounter Description Reason Provider Source Jun 11, 2024 01:30 PM OFFICE O/P EST LOW 20 MIN [facility] - IND ICD-10-CM F34.1 Dysthymic disorder JENNIFER PALUMBO Junior Encounter Template Text not used by VA Assessments - Encounter Diagnoses This section includes the primary and secondary diagnoses documented for the Encounter. Date/Time Primary/Secondary Diagnosis Diagnosis Name Provider Source Jun 11, 2024 01:46 PM PRIMARY Dysthymic disorder JENNIFER PALUMBO Plan of Treatment: Future Appointments (+ 6 months) and Future Tests (+/- 45 days) The Plan of Treatment section includes future care activities for the patient [facility] This section includes future appointments and future orders which are active, pending or scheduled. Future Appointments This section includes appointments that were scheduled to occur 6 months from the date of the Encounter, up to a maximum of 20 appointments. The data comes from all [place] treatment facilities. Appointment Date/Time Appointment Type Appointme nt Facility Name Jun 15, 2024 10:45 AM AMBULATORY - MEDICINE [facility] [place] [facility] Jun 18, 2024 01:00 PM AMBULATORY - PSYCHIATRY [facility] [place] [facility] Jul 02, 2024 01:00 PM AMBULATORY - PSYCHIATRY [facility] [place] [facility] Jul 09, 2024 01:00 PM AMBULATORY - PSYCHIATRY [facility] [place] [facility] Jul 16, 2024 01:00 PM AMBULATORY - PSYCHIATRY [facility] [place] [facility] Jul 19, 2024 10:00 AM AMBULATORY - PSYCHIATRY [facility] [place] [facility] Jul 23, 2024 01:00 PM AMBULATORY - PSYCHIATRY [facility] [place] [facility] Jul 30, 2024 01:00 PM AMBULATORY - PSYCHIATRY [facility] [place] [facility] Aug 13, 2024 01:00 PM AMBULATORY - PSYCHIATRY [facility] [place] [facility] Aug 19, 2024 02:00 PM AMBULATORY - MEDICINE [facility] [place] [facility] Aug 20, 2024 01:00 PM AMBULATORY - PSYCHIATRY [facility] [place] [facility] Aug 27, 2024 01:00 PM AMBULATORY - PSYCHIATRY [facility] [place] [facility] Sep 10, 2024 01:00 PM AMBULATORY - PSYCHIATRY [facility] [place] [facility] Sep 16, 2024 09:00 AM AMBULATORY - MEDICINE [facility] [place] [facility] Sep 17, 2024 01:00 PM AMBULATORY - PSYCHIATRY [facility] [place] [facility] Sep 24, 2024 11:30 AM AMBULATORY - PSYCHIATRY [facility] [place] [facility] Oct 08, 2024 01:00 PM AMBULATORY - PSYCHIATRY [facility] [place] [facility] October 29, 2024 01:00 PM AMBULATORY - PSYCHIATRY [facility] [place] [facility] November 05, 2024 01:00 PM AMBULATORY PSYCHIATRY [place] [facility] [place] [facility] November 12, 2024 01:00 PM [facility]ORY [facility] Social History: Smoking Status (Most current) and Tobacco Use (All prior to encounter date) This section includes the most current, and the historical, smoking and tobacco- related health factors from the [place] facility where the Encounter took place. Current Smoking Status This section includes the most current smoking, or tobacco-related health factor, from the [place] facility where the Encounter took place. Date/Time Current Smoking Status Comment Facil ity Mar 18, 2023 09:00 AM [facility] [place] [facility] Advance Directives: All historical and current Section Date Range: From patient's date of to the date document was created. This section includes ALL of a patient's completed or amended VA Advance and Rescinded Directives. The entries below indicate that a directive exists for the patient, but an actual copy is not included with this document. The data comes from all [place] facilities. Date Advance Directives Provider Source Mar 25, 2023 ADVANCE DIRECTIVE [facility]ROS [facility] Encounter Notes: All associated encounter notes This section contains the clinical notes associated to the Encounter. Date/Time Encounter Note(s) Provider Source Jun 11, 2024 01:30 PM TELEHEALTH NOTE: LOCAL TITLE: VA VIDEO CONNECT PSYCHIATRIST NOTE STANDARD TITLE: TELEHEALTH NOTE DATE OF NOTE: JUN 11, 2024@13:30 ENTRY DATE: JUN 11, 2024@13:31:41 AUTHOR: JENNIFER PALUMBO COSIGNER: URGENCY: STATUS: COMPLETED VA Video Connect (VVC) Standard Documentation VVC Clinician Resources Only: E911 (Emergency Call Relay Center): [phone] National Veterans Crisis Line - 988 then press #1. DAVID Suicide Coordinator [phone], Ext. [phone]; Back-up Ext. [phone] [place] PoliceDAVID [place] [phone] Introduction: Visit is being conducted by [place] [employer] [facility]. [place] identified with 2 identifiers: [X] Full Name [X] Date of [ ] VA ID Card Emergency Plan: confirmed and/or provided the following information in case of emergency or technology failure. PATIENT PHONE - PHONE NUMBER [CELLULAR] - Is patient phone number correct, if not, enter below: 's phone number: JAYLAN ALVAREZ [address], [place], [address] [place]'s present location and address for appointment: same as above 's emergency contact name and phone number: unchanged reported that location is private and safe: Yes Informed Consent: [place] informed of the risks and benefits of Telehealth video care. [place] has the right to refuse video services. If refuses video visit, a hsob-ao-deyy visit will be scheduled. [place] verbalized consent for this video visit: Yes provided consent for any other persons present for visit: N/A If yes, who and relationship to patient: Secure visit: Visit was locked for security and privacy:Yes CHART REVIEW: seen for initial MH Consult 03/18/23 noting: Nash is a 42 year old [employer] [employer] , [facility] to [facility] services and presenting for mental health due to frequent tearfulness. 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 [place] [employer]. She built a good group of friends who she stayed in touch with for a long time. 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 Is planning to pursue a claim about possible link between her RA and the anthrax vaccine. 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 She [...] different agent. NOTED AT LAST OP VISIT: reports my emotions are up and down. Crying easily. Going on the last 3 weeks. I had a situation at work a month ago when she came across a letter by a colleague which seemed like a suicide note, reminds her about loss of coworkers in . She is starting therapy today. We agree to increase Lexapro to 10mg dose again, hoping she can tolerate sedation this time PRESENTING SYMPTOMS AND CONDITION ON TODAY'S VISIT: [place] reports I've been good. Meeting with the therapist every week. Lexapro has been working well. My moods are less up and down, less outbursts. It takes more to get me to cry. I don't feel as overwhelmed. REVIEW OF SYSTEMS MENTAL HEALTH: SLEEP: good MOOD: at times doesn't feel like doing things, feels down much of the time, not really enjoying things. Winter more challenging , deployment was in May PTSD symptoms: seasonal reminder friend took his life while deployed ANXIETY: improved ANGER/IRRITABILITY/AGGRESSION: Denies SUBSTANCE USE: Alcohol: rare Illegal/non-prescribed drugs: denies TOBACCO: Non-smoker RAJIV/HYPOMANIA: None evident PSYCHOTIC FEATURES: None evident Suicidal Thoughts/Intent/plan: denied Social Status/ Stressors: work is busy, kids CURRENT PSYCH meds: Lexapro 10mg daily ADVERSE EFFECTS: slight tiredness MED REC: on new meds for GI [...] AND OVERALL PROGRESS TOWARD TREATMENT GOALS: experiencing improvement since the increase in Lexapro to 10mg dose but remains dysphoric. She agrees to try increasing to 15mg daily. Note Wellbutrin not tolerated (c/o heart racing). i. Severity of Illness: ()none (x)mild ( x)moderately ill ()severely ill ()very severely ill ii. Global Improvement: ()very much ( )much (x )min ( )none (x)min worse ( )much worse ()very much worse iii. RISK ASSESSEMENT: [...] Reinforced: If urgent treatment is needed, call [phone] or go to the nearest Emergency Room 2. To schedule or change an appointment, inquire about medication refills, etc: call office number during normal office hours Diagnoses: History of dysthymia ([facility] [id number]) - Dysthymic disorder (ICD-10-CM F34.1) (Primary) Chronic post-traumatic stress disorder ([facility] [id number]) - Post-traumatic stress disorder, chronic (ICD-10-CM F43.12) /mat/ JENNIFER PALUMBO M.D. Signed: 06/11/2024 13:46 JENNIFER PALUMBOFIELD
--- OUTSIDE RECORDS SUMMARY | 2024-06-11 10:00 | XMS_ITS | Encounter Summary ---
Author Name [facility] [place] [place] Organization [place] Address [address] [place] [address] Care Team Providers Care Over Hauler Helper Name Role Phone TRINH FRANCO Primary Care [...] Patient's Relationship to Policy [facility] [employer] ([id number]) PRESCRIPT [facility]ON [facility] Jun 07, 2022 [id number] PATIENT Selected Encounter This section includes the information on record at [place] for the Encounter. Date/Time Encounter Type Encounter Description Reason Provider Source Jun 11, 2024 02:00 PM PSYTX W PT 45 MINUTES [facility]ENTAL [facility] CLINIC - IND ICD-10-CM F43.12 Post-traumatic stress disorder, chronic CAMPONOGARA,SA LIYAH E Encounter Template Text not used by [place] Assessments - Encounter Diagnoses This section includes the primary and secondary diagnoses documented for the Encounter. Date/Time Primary/Secondary Diagnosis Diagnosis Name Provider Source Jun 11, 2024 04:04 PM PRIMARY Post-traumatic stress disorder, chronic CAMPONOGARA,SA LIYAH [place] [facility] [place] [facility] Jun 11, 2024 04:04 PM SECONDARY Major depressive disorder, recurrent, moderate CAMPONOGARA,SA LIYAH [facility] [place] [facility] Plan of Treatment: Future Appointments (+ 6 months) and Future Tests (+/- 45 days) The Plan of Treatment section includes future care activities for the patient from all [place] treatmentfacilities. This section includes future appointments and future orders which are active, pending or scheduled. Future Appointments This section includes appointments that were scheduled to occur 6 months from the date of the Encounter, up to a maximum of 20 appointments. The data comes from all [place] treatment facilities. Appointment Date/Time Appointment Type Appointme nt Facility Name Jun 15, 2024 10:45 AM AMBULATORY - MEDICINE [facility] [place] [facility] Jun 18, 2024 01:00 PM AMBULATORY - PSYCHIATRY [facility] [place] [facility] Jul 02, 2024 01:00 PM AMBULATORY - PSYCHIATRY [facility] [place] [facility] Jul 09, 2024 01:00 PM AMBULATORY - PSYCHIATRY [facility] [place] [facility] Jul 16, 2024 01:00 PM AMBULATORY - PSYCHIATRY [facility] [place] [facility] Jul 19, 2024 10:00 AM AMBULATORY - PSYCHIATRY [facility] [place] [facility] Jul 23, 2024 01:00 PM AMBULATORY - PSYCHIATRY [facility] [place] [facility] Jul 30, 2024 01:00 PM AMBULATORY - PSYCHIATRY [facility] [place] [facility] Aug 13, 2024 01:00 PM AMBULATORY - PSYCHIATRY [facility] [place] [facility] Aug 19, 2024 02:00 PM AMBULATORY - MEDICINE [facility] [place] [facility] Aug 20, 2024 01:00 PM AMBULATORY - PSYCHIATRY [facility] [place] [facility] Aug 27, 2024 01:00 PM AMBULATORY - PSYCHIATRY [facility] [place] [facility] Sep 10, 2024 01:00 PM AMBULATORY - PSYCHIATRY [facility] [place] [facility] Sep 16, 2024 09:00 AM AMBULATORY - MEDICINE [facility] [place] [facility] Sep 17, 2024 01:00 PM AMBULATORY - PSYCHIATRY [facility] [place] [facility] Sep 24, 2024 11:30 AM AMBULATORY - PSYCHIATRY [facility] Oct 08, 2024 01:00 PM AMBULATORY - PSYCHIATRY [facility] October 29, 2024 01:00 PM [facility] November 05, 2024 01:00 PM AMBULATORY PSYCHIATRY [facility] November 12, 2024 01:00 PM AMBULATORY PSYCHIATRY [facility] Social History: Smoking Status (Most current) and Tobacco Use (All prior to encounter date) This section includes the most current, and the historical, smoking and tobacco- related health factors from the [place] facility where the Encounter took place. Current Smoking Status This section includes the most current smoking, or tobacco-related health factor, from the [place] facility where the Encounter took place. Date/Time Current Smoking Status Comment Facil ity May 14, 2024 01:00 PM [place]-TOBACCO NEVER U SED CIGARETTES [facility] Tobacco Use History This section includes a history of the smoking, or tobacco-related health factors, that were collected on or before the date of the Encounter. The data comes from the [place] facility where the Encounter took place. Date/Time Smoking Status/Tobacco Use Comment F acility May 14, 2024 01:00 PM [place]-TOBACCO NEVER U SED OTHER TYPE [facility] Advance Directives: All historical and current Section Date Range: From patient's date of to the date document was created. This section includes ALL of a patient's completed or amended [place] Advance and Rescinded Directives. The entries below indicate that a directive exists for the patient, but an actual copy is not included with this document. The data comes from all [place] facilities. Date Advance Directives Provider Source Mar 25, 2023 ADVANCE DIRECTIVE PETROS MOTLEY Encounter Notes: All associated encounter notes This section contains the clinical notes associated to the Encounter. Date/Time Encounter Note(s) Provider Source Jun 11, 2024 01:46 PM TELEHEALTH NOTE: LOCAL TITLE: [place] VIDEO CONNECT PSYCHOLOGY NOTE STANDARD TITLE: TELEHEALTH NOTE DATE OF NOTE: JUN 11, 2024@13:46 ENTRY DATE: JUN 11, 2024@13:46:07 AUTHOR: ROBERT RODRIGUEZ EXP COSIGNER: URGENCY: STATUS: COMPLETED VA Video Connect (VVC) Standard Documentation VVC Clinician Resources Only: E911 (Emergency Call Relay Center): [phone] National Veterans Crisis Line - 988 then press #1. [place] Suicide Coordinator [phone], Ext. [phone]; Back-up Ext. [phone] [place] Police, [place], [place] [phone] Introduction: Visit is being conducted by [place] [employer] Connect. identified with 2 identifiers: [X] Full Name [X] Date of [ ] VA ID Card Emergency Plan: confirmed and/or provided the following information in case of emergency or technology failure. PATIENT PHONE - PHONE NUMBER [CELLULAR] - Is patient phone number correct, if not, enter below: [place]'s phone number: JAYLAN ALVAREZ [address], [place], [address] [place]'s present location and address for appointment: see chart 's emergency contact name and phone number: see chart reported that location is private and safe: Yes Informed Consent: informed of the risks and benefits of Telehealth video care. [place] has the right to refuse video services. If refuses video visit, a iwfa-vv-rhby visit will be scheduled. verbalized consent for this video visit: Yes [place] provided consent for any other persons present [...] court of law and presented to a environmental officer), and DOD access for active duty service members. Provided Suicide Prevention Hotline number, and other contact numbers as necessary. identified with 2 identifiers: [X] Patient Name [X] Visual recognition SESSION: 3 VISIT DURATION: 50 min DSM5 DIAGNOSES: PTSD; Major Depressive Disorder, Moderate, Recurrent RISK ASSESSMENT: Nash endorsed passive suicidal ideation [...] unsafe including the use of the VCL ([phone]), 911, walk in services, and urgent care/emergency room. The is aware of how to contact the clinic should he/she require additional services prior to the next appointment. MENTAL STATUS AND BEHAVIORAL OBSERVATIONS: Nash arrived [...] limits. Nash was polite, cooperative, and engaged. ASSESSMENT: PCL-5 Monthly: 39, indicative of moderate PTSD symptoms. MEASUREMENT BASED CARE: Nash was educated about measurement based care (MBC). Nash agreed to utilize PCL-5 and PHQ-9 as outcome measures, to be completed prior to each session and reviewed weekly. Material Assistant reviewed with Nash the use of [facility] ([facility]) to facilitate Measurement Based Care (MBC). Nash requested the questionnaires be sent 30 minutes prior to sessions via TEXT. SESSION CONTENT: Nash completed PCL-5 interview to assess current PTSD symptomology. She had difficulty identifying an index trauma, as all her traumatic events occurred within a similar time frame and shared themes of loss. Nash ultimately identified her index trauma as her close friend's suicide. This was the first traumatic event to occur to her and it occurred around Christmastime. Her PTSD symptoms emerged when she returned home from deployment in 2002. Nash stated that she currently avoids trauma memories by avoiding gatherings with other people. She stated that social gatherings increase her anxiety and fear that she will lose others if she becomes a part of things. Nash denied feelings of self-blame and negative beliefs about others associated with her trauma history. She described negative beliefs about herself (i.e., I am not good enough for certain things in life) and the belief that if she becomes close to someone, she will lose them. reported that her belief that she is not good enough for others stems from a series of romantic relationships that follow a similar pattern. She described spending time one on one with her partners but never being integrated into their lives or introduced to other important people in their life. stated that this results in her feeling hidden and produces feelings of shame. In addition, accepted information about online educational resources about PTSD and depression treatment options including https://www.ptsd.va.gov/a pps/decisionaid/ and https://www.ptsd.va.gov/a pps/AboutFace/. The plan is to engage in shared decision making and collaborative treatment planning in the next session. NEXT STEPS: Our next session is scheduled for 06/18 at 1pm [facility]. The plan is to engage in shared decision making regarding treatment plan. /mat/ Robert Rodriguez Psy.D. SEXUAL TRAUMA/WOMEN'S PSYCHOLOGIST Signed: 06/11/2024 16:08 ROB[facility]
--- OUTSIDE RECORDS SUMMARY | 2024-06-18 09:00 | XMS_ITS | Encounter Summary ---
Author Name [facility] [place] Address [address] [place] [address] Care Team Providers Care Neon Glass Bender Name Role Phone TRINH FRANCO Primary Care [...] Patient's Relationship to Policy [facility] ([id number]) [facility] Jun 07, 2022 [id number] PATIENT Selected Encounter This section includes the information on record at [place] for the Encounter. Date/Time Encounter Type Encounter Description Reason Provider Source Jun 18, 2024 01:00 PM PSYTX W PT 45 MINUTES [facility] - IND ICD-10-CM F43.12 Post-traumatic stress disorder, chronic CAMPONOGARA,SA LIYAH E Encounter Template Text not used by [place] Assessments - Encounter Diagnoses This section includes the primary and secondary diagnoses documented for the Encounter. Date/Time Primary/Secondary Diagnosis Diagnosis Name Provider Source Jun 18, 2024 02:09 PM PRIMARY Post-traumatic stress disorder, chronic CAMPONOGARA,SA LIYAH [place] [facility] Plan of Treatment: Future Appointments (+ 6 months) and Future Tests (+/- 45 days) The Plan of Treatment section includes future care activities for the [facility] [place] [facility] This section includes future appointments and future orders which are active, pending or scheduled. Future Appointments This section includes appointments that were scheduled to occur 6 months from the date of the Encounter, up to a maximum of 20 appointments. The data comes from all [place] treatment facilities. Appointment Date/Time Appointment Type Appointme nt Facility Name Jul 02, 2024 01:00 PM [facility]UL[facility] [place] [facility] Jul 09, 2024 01:00 PM AMBULATORY [facility] [place] [facility] Jul 16, 2024 01:00 PM AMBULATORY [facility] [place] [facility] Jul 19, 2024 10:00 AM AMBULATORY [facility] [place] [facility] Jul 23, 2024 01:00 PM AMBUL[facility] [place] [facility] Jul 30, 2024 01:00 PM AMBULATORY [facility] [place] [facility] Aug 13, 2024 01:00 PM AMBULAT[facility] [place] [facility] Aug 19, 2024 02:00 PM AMBULATORY [facility] MEDICINE [facility] [place] [facility] Aug 20, 2024 01:00 PM AMBULATORY [facility] [place] [facility] Aug 27, 2024 01:00 PM AMBULATORY - [facility] [place] [facility] Sep 10, 2024 01:00 PM AMBULATORY [facility] [place] [facility] Sep 16, 2024 09:00 AM AMBULATORY - MEDICINE [facility] [place] [facility] Sep 17, 2024 01:00 PM AMBULATORY [facility] [place] [facility] Sep 24, 2024 11:30 AM AMBULATORY - [facility] [place] [facility] Oct 08, 2024 01:00 PM AMBULATORY - [facility] [place] [facility] October 29, 2024 01:00 PM AMBULATORY - [facility] [place] [facility] November 05, 2024 01:00 PM [facility] [place] [facility] November 12, 2024 01:00 PM AMBULATORY PSYCHIATRY [facility] November 19, 2024 01:00 PM AMBULATORY - PSYCHIATRY [facility] Dec 10, 2024 01:00 PM AMBULATORY PSYCHIATRY [facility] Social History: Smoking Status (Most current) and Tobacco Use (All prior to encounter date) This section includes the most current, and the historical, smoking and tobacco- related health factors from the [place] facility where the Encounter took place. Current Smoking Status This section includes the most current smoking, or tobacco-related health factor, from the [place] facility where the Encounter took place. Date/Time Current Smoking Status Comment Facil ity May 14, 2024 01:00 PM VA-TOBACCO NEVER U SED CIGARETTES [facility] Tobacco Use History This section includes a history of the smoking, or tobacco-related health factors, that were collected on or before the date of the Encounter. The data comes from the [place] facility where the Encounter took place. Date/Time Smoking Status/Tobacco Use Comment F acility May 14, 2024 01:00 PM VA-TOBACCO NEVER U SED OTHER TYPE [facility] Advance Directives: All historical and current Section Date Range: From patient's date of to the date document was created. This section includes ALL of a patient's completed or amended [place] Advance and Rescinded Directives. The entries below indicate that a directive exists for the patient, but an actual copy is not included with this document. The data comes from all [place] facilities. Date Advance Directives Provider Source Mar 25, 2023 ADVANCE DIRECTIVE PETROS MOTLEY [facility] Encounter Notes: All associated encounter notes This section contains the clinical notes associated to the Encounter. Date/Time Encounter Note(s) Provider Source Jun 18, 2024 02:16 PM MENTAL HEALTH TREATMENT PLAN NOTE: LOCAL TITLE: MH TREATMENT PLAN STANDARD TITLE: MENTAL HEALTH TREATMENT PLAN NOTE DATE OF NOTE: JUN 18, 2024@14:16:50 ENTRY DATE: JUN 18, 2024@14:17:12 AUTHOR: ROBERT RODRIGUEZ COSIGNER: URGENCY: STATUS: COMPLETED MH TREATMENT PLAN - May, @ 02:16PM Visit Date: May, @ 13:00 - CWM/NO/VVC/MHC/TERRIE JONES TC not assigned PRESENTING PROBLEM: Caballo presented to [facility] for individual psychotherapy to treat chronic depression and PTSD. STRENGTHS: Expressed desire/motivation for change Active partnership in T[place] Ability to care for others NEEDS: Good insight into problem(s) and is actively addressing the problem(s) TREATMENT PLAN: Problem: Problem/Need: [DEPRESSION]: I am experiencing depressive symptoms that include: depressed mood, crying spells, feelings of hopelessness, anhedonia, fatigue . Status: ACTIVE Goal: I want to decrease depression and improve mood. Status: ACTIVE Objective: I will engage more frequently in pleasant activities. Progress will be measured through PHQ-9 and PCL-5 Status: ACTIVE Projected Target: 07/18/2024 Intervention: [PSYCHOTHERAPY] My provider will work with me to achieve this goal and objective through CBT Status: ACTIVE Discipline: Mental Health Clinic Time Frame: One time per week for 20 weeks Providers: ROBERT RODRIGUEZ: PSYCHOLOGIST DISCIPLINE: Mental Health Clinic Entered Treatment: 06/18/2024 @ 02:15PM Review Date: 06/18/2025 Anticipated Discharge: 06/17/2025 Discharge Criteria: Caballo successfully completed treatment goals utilizes effective coping skills PATIENT ACTION: PATIENT AGREED TO PLAN DISCUSSED. FAMILY ACTION: PATIENT DECLINED FAMILY PARTICIPATION. INTERDISCIPLINARY TEAM: ROBERT RODRIGUEZ: PSYCHOLOGIST COMMUNICATION: Relevant treatment options, including evidence-based interventions, were considered and discussed with the Caballo. YES A copy of the treatment plan was given to the Caballo. YES Risks, benefits, and potential complications were discussed with the Caballo. YES /mat/ Robert Rodriguez Psy.D. SEXUAL TRAUMA/WOMEN'S PSYCHOLOGIST Signed: 06/18/2024 14:17 ROBERT RODRIGUEZ [place] [facility] [place] [facility] Jun 18, 2024 02:01 PM MENTAL HEALTH NOTE: LOCAL TITLE: CBT DEPRESSION THERAPY NOTE STANDARD TITLE: MENTAL HEALTH NOTE DATE OF NOTE: JUN 18, 2024@14:01 ENTRY DATE: JUN 18, 2024@14:02 AUTHOR: ROBERT RODRIGUEZ EXP COSIGNER: URGENCY: STATUS: COMPLETED [facility] Connect (VVC) Standard Documentation VVC Clinician Resources Only: E911 (Emergency Call Relay Center): [phone] National Veterans Crisis Line - 988 then press #1. DAVID Suicide Coordinator [phone], Ext. [phone]; Back-up Ext. [phone] [place] Police, Kassandra HERNANDEZ [phone] Introduction: Visit is being conducted by [place] [employer]. identified with 2 identifiers: [X] Full Name [X] Date of [ ] VA ID Card Emergency Plan: confirmed and/or provided the following information in case of emergency or technology failure. PATIENT PHONE - PHONE NUMBER [CELLULAR] - Is patient phone number correct, if not, enter below: Caballo's phone number: JAYLAN ALVAREZ [address], [place], [address] Caballo's present location and address for appointment: see chart Caballo's emergency contact name and phone number: see chart reported that location is private and safe: Yes Informed Consent: Caballo informed of the risks and benefits of Telehealth video care. has the right to refuse video services. If refuses video visit, a [id number] visit will be scheduled. verbalized consent for [...] court of law and presented to a judge's clerk), and [facility] access for active duty service members. Provided Suicide Prevention Hotline number, and other contact numbers as necessary. Caballo identified with 2 identifiers: [X] Patient Name [X] Visual recognition COGNITIVE BEHAVIORAL THERAPY FOR DEPRESSION (CBT-D): INITIAL PHASE Time in session (in minutes): 50 SESSION NUMBER: 1 DIAGNOSIS: Primary (focus of treatment): Major Depressive Disorder, Moderate, Recurrent Secondary (if applicable): PTSD, Chronic ASSESSMENT Date Instrument Raw Trans Scale 06/18/2024 12:38 PHQ9 21 PHQ9 03/18/2023 10:12 PHQ9 10 PHQ9 RISK ASSESSMENT: Nash endorsed passive suicidal ideation [...] unsafe including the use of the VCL ([phone]), 911, walk in services, and urgent care/emergency [...] thought disorder. She described her mood as frustrated and her affect was expressive, stable, and consistent with stated mood. She was tearful at times. Speech and motor activity fell within normal limits. Nash was polite, cooperative, and engaged. SESSION CONTENT: In this initial phase session of Cognitive Behavioral Therapy for Depression (CBT-D), the following therapeutic activities were performed: MOTIVATIONAL ENHANCEMENT --Identified short-term goals in several areas of functioning. --Identified the consequences or impact of the target diagnosis/problem (or other symptoms). --Identified the benefits of reducing the severity of the target diagnosis/problem. --Assessed attitude toward therapy. SOCIALIZATION TO CBT Nash reviewed evidence based treatment options for PTSD and Major Depressive Disorder. She chose CBT-D. Provided a brief description of CBT and how CBT relates to the treatment goals. Provided information about the efficacy of CBT. Described prioritized agenda setting. Described how the PHQ-9 will be completed and scored for each session. Described how homework will be assigned and discussed each session. Reviewed the length (16 sessions) and frequency (weekly or biweekly) of treatment. TREATMENT GOALS 's presenting problem: chronic depression with crying spells and feelings of hopelessness Treatment goals: increase engagement in valued and meaningful activities, reduce crying spells, experience more connection to others COLLABORATIVE HOMEWORK ASSIGNMENT: No assignment in today's session. FINAL SUMMARY AND FEEDBACK: reported that she relates to having a negative cognitive triad with particularly negative beliefs about herself (e.g., I am inadequate) and the future (e.g., things will not get better). Caballo described feeling frustrated by others at her job and in her personal life who do not put effort into improving themselves or their circumstances. PLAN Next session planned for agreed upon date/time of: 06/25 at 1pm [facility], continue CBT-D /es/ Robert Rodriguez Psy.D. SEXUAL TRAUMA/WOMEN'S PSYCHOLOGIST Signed: 06/18/2024 14:10 ROBERT RODRIGUEZ [place] [facility] [place] [facility] Jun 18, 2024 12:43 PM MENTAL HEALTH DIAGNOSTIC STUDY NOTE: LOCAL TITLE: MENTAL HEALTH DIAGNOSTIC STUDY STANDARD TITLE: MENTAL HEALTH DIAGNOSTIC STUDY NOTE DATE OF NOTE: JUN 18, 2024@12:43:59 ENTRY DATE: JUN 18, 2024@12:43:59 AUTHOR: ROBERT RODRIGUEZ EXP COSIGNER: URGENCY: STATUS: COMPLETED Assessments were sent to the Caballo via text/email. These assessments were completed by JAYLAN ALVAREZ) on their own device on 06/18/2024 12:38:48 PM. PATIENT HEALTH QUESTIONNAIRE-9 (PHQ-9) The patient reported symptoms consistent with a major depressive episode. Patient reported being bothered by the following over the last 2 weeks: 1. Little interest or pleasure: Nearly every day 2. Feeling down, depressed or hopeless: Nearly every day 3. Trouble sleeping: Several Days 4. Tired, low energy: Nearly every day 5. Poor appetite, over-eating: Nearly every day 6. Feelings of failure, guilt: Nearly every day 7. Trouble concentrating: More than half the days 8. Motor retardation, agitation: Nearly every day 9. Thoughts better off /hurting self: Not at all PHQ-9 total score = 21 1-4 = minimal symptoms 5-9= mild symptoms 10-14= moderate symptoms 15-19= moderately severe symptoms 20-27= severe depressive symptoms The patient stated that the depressive symptoms made it extremely difficult to work, take care of things at home, or get along with others. PTSD CHECKLIST (PCL-5) - WEEKLY Patient reported being bothered by the following over the past week: 1. Disturbing memories: Moderately 2. Disturbing dreams: Moderately 3. Re-experiencing events: Moderately 4. Cued distress: Moderately 5. Cued physical symptoms: Moderately 6. Avoiding internal reminders: Moderately 7. Avoiding external reminders: Quite a bit 8. Trouble with recall: Extremely 9. Negative beliefs: Quite a bit 10. Blaming self/others: Moderately 11. Negative feelings: Moderately 12. Loss of interest: Extremely 13. Feeling distant from others: Moderately 14. Feeling numb: Quite a bit 15. Feeling irritable: Moderately 16. Reckless behavior: A little bit 17. Being super-alert : Moderately 18. Feeling easily startled: Moderately 19. Difficulty concentrating: Extremely 20. Trouble sleeping: Quite a bit PCL-5 total score = 49 This measure assesses an individual's perception of [...] DSM-5, is recommended to confirm diagnostic status. /mat/ Robert Rodriguez Psy.D. SEXUAL TRAUMA/WOMEN'S PSYCHOLOGIST Signed: 06/18/2024 14:00 [facility]
--- OUTSIDE RECORDS SUMMARY | 2024-06-25 09:00 | XMS_ITS ---
Author Name [facility] ([place]) Address [address] [place] [address] Care Team Providers Care Recycling Collections Driver Name Role Phone TRINH FRANCO Primary Care [...] Patient's Relationship to Policy [employer] ([phone]) [facility] Jun 07, 2022 [id number] ALVAREZ PATIENT Selected Encounter This section includes the information on record at [place] for the Encounter. Date/Time Encounter Type Encounter Description Reason Pro vider Source Jun 25, 2024 01:00 PM Outpatient Encounter MENTAL HEALTH [facility] IHE Encounter Template Text not used by [place] Plan of Treatment: Future Appointments (+ 6 months) and Future Tests (+/- 45 days) The Plan of Treatment section includes future care activities for the patient from all [place] treatmentfacilities. This section includes future appointments and future orders which are active, pending or scheduled. Future Appointments This section includes appointments that were scheduled to occur 6 months from the date of the Encounter, up to a maximum of 20 appointments. The data comes from all [place] treatment facilities. Appointment Date/Time Appointment Type Appointme nt Facility Name Jul 02, 2024 01:00 PM AMBULATORY - [facility]IATRY [facility] [place] [facility] Jul 09, 2024 01:00 PM AMBULATORY - PS[facility]IATRY [facility] [place] [facility] Jul 16, 2024 01:00 PM AMBULATORY - PS[facility]IATRY [facility] [place] [facility] Jul 19, 2024 10:00 AM AMBULATORY - PS[facility]IATRY [facility] [place] [facility] Jul 23, 2024 01:00 PM AMBULATORY - PS[facility]CHIATRY [facility] [place] [facility] Jul 30, 2024 01:00 PM AMBULATORY - PS[facility]CHIATRY [facility] [place] [facility] Aug 13, 2024 01:00 PM AMBULATORY - PS[facility]CHIATRY [facility] [place] [facility] Aug 19, 2024 02:00 PM AMBULATORY - MEDICINE [facility] [place] [facility] Aug 20, 2024 01:00 PM AMBULATORY - PS[facility]CHIATRY [facility] [place] [facility] Aug 27, 2024 01:00 PM AMBULATORY - PSYCHIATRY [facility] [place] [facility] Sep 10, 2024 01:00 PM AMBULATORY - PSYCHIATRY [facility] [place] [facility] Sep 16, 2024 09:00 AM AMBULATORY - MEDICINE [facility] [place] [facility] Sep 17, 2024 01:00 PM AMBULATORY - PSYCHIATRY [facility] [place] [facility] Sep 24, 2024 11:30 AM AMBULATORY - PSYCHIATRY [facility] [place] [facility] Oct 08, 2024 01:00 PM AMBULATORY - PSYCHIATRY [facility] [place] [facility] October 29, 2024 01:00 PM AMBULATORY - PSYCHIATRY [facility] [place] [facility] November 05, 2024 01:00 PM AMBULATORY - PSYCHIATRY [facility] [place] [facility] November 12, 2024 01:00 PM AMBULATORY - PSYCHIATRY [facility] [place] [facility] November 19, 2024 01:00 PM AMBULATORY - PSYCHIATRY [facility] [place] [facility] Dec 10, 2024 01:00 PM AMBULATORY - PSYCHIATRY [facility] [place] [facility] Social History: Smoking Status (Most current) and Tobacco Use (All prior to encounter date) This section includes the most current, and the historical, smoking and tobacco- related health factors from the [place] facility where the Encounter took place. Current Smoking Status This section includes the most current smoking, or tobacco-related health factor, from the [place] facility where the Encounter took place. Date/Time Current Smoking Status Comment Facil ity May 14, 2024 01:00 PM VA-TOBACCO NEVER U SED CIGARETTES [facility] Tobacco Use History This section includes a history of the smoking, or tobacco-related health factors, that were collected on or before the date of the Encounter. The data comes from the [place] facility where the Encounter took place. Date/Time Smoking Status/Tobacco Use Comment F acility May 14, 2024 01:00 PM VA-TOBACCO NEVER U SED OTHER TYPE [facility] Advance Directives: All historical and current Section Date Range: From patient's date of to the date document was created. This section includes ALL of a patient's completed or amended [place] Advance and Rescinded Directives. The entries below indicate that a directive exists for the patient, but an actual copy is not included with this document. The data comes from all [place] facilities. Date Advance Directives Provider Source Mar 25, 2023 [facility] Encounter Notes: All associated encounter notes This section contains the clinical notes associated to the Encounter. Date/Time Encounter Note(s) Provider Source Jun 25, 2024 12:43 PM ADMINISTRATIVE NOTE: LOCAL TITLE: ADMINISTRATIVE NOTE STANDARD TITLE: ADMINISTRATIVE NOTE DATE OF NOTE: JUN 25, 2024@12:43 ENTRY DATE: JUN 25, 2024@12:44 AUTHOR: ROBERT RODRIGUEZ EXP COSIGNER: URGENCY: STATUS: COMPLETED sent a secure message requesting to cancel 06/25 1pm [facility] appointment. We are scheduled for 07/02 at 1pm [facility]. /mat/ Robert Rodriguez Psy.D. SEXUAL TRAUMA/WOMEN'S PSYCHOLOGIST Signed: 06/25/2024 12:44 Receipt Acknowledged By: * AWAITING SIGNATURE * NOBLE BURCH SABINA [facility]
--- OUTSIDE RECORDS SUMMARY | 2024-07-02 09:00 | XMS_ITS | Encounter Summary ---
Author Name [facility] Organization [facility] Address [address] [place] [address] Care Team Providers Care Lead Inspector Name Role Phone TRINH FRANCO Primary Care [...] Patient's Relationship to Policy [employer] ([id number]) PRESCRIPT ION [facility] Jun 07, 2022 [id number] PATIENT Selected Encounter This section includes the information on record at [place] for the Encounter. Date/Time Encounter Type Encounter Description Reason Provider Source Jul 02, 2024 01:00 PM PSYTX W PT 45 MINUTES [facility] - IND ICD-10-CM F43.12 Post-traumatic stress disorder, chronic CAMPONOGARA,SA LIYAH E Encounter Template Text not used by [place] Assessments - Encounter Diagnoses This section includes the primary and secondary diagnoses documented for the Encounter. Date/Time Primary/Secondary Diagnosis Diagnosis Name Provider Source Jul 02, 2024 02:43 PM PRIMARY Post-traumatic stress disorder, chronic CAMPONOGARA,SA LIYAH [facility] [place] [facility] Jul 02, 2024 02:43 PM SECONDARY Major depressive disorder, recurrent, moderate CAMPONOGARA,SA LIYAH [facility] [place] [facility] Plan of Treatment: Future Appointments (+ 6 months) and Future Tests (+/- 45 days) The Plan of Treatment section includes future care activities for the patient from all [place] treatmentfacilities. This section includes future appointments and future orders which are active, pending or scheduled. Future Appointments This section includes appointments that were scheduled to occur 6 months from the date of the Encounter, up to a maximum of 20 appointments. The data comes from all [place] treatment facilities. Appointment Date/Time Appointment Type Appointme nt Facility Name Jul 09, 2024 01:00 PM AMBULATORY - PSYCHIATRY [facility] [place] [facility] Jul 16, 2024 01:00 PM AMBULATORY - PS[facility]CHIATRY [facility] [place] [facility] Jul 19, 2024 10:00 AM AMBULATORY - PS[facility]CHIATRY [facility] [place] [facility] Jul 23, 2024 01:00 PM AMBULATORY - PS[facility]CHIATRY [facility] [place] [facility] Jul 30, 2024 01:00 PM AMBULATORY - PS[facility]CHIATRY [facility] [place] [facility] Aug 13, 2024 01:00 PM AMBULATORY - PS[facility]CHIATRY [facility] [place] [facility] Aug 19, 2024 02:00 PM AMBULATORY - MEDICINE [facility] [place] [facility] Aug 20, 2024 01:00 PM AMBULATORY - PS[facility]CHIATRY [facility] [place] [facility] Aug 27, 2024 01:00 PM AMBULATORY - PS[facility]CHIATRY [facility] [place] [facility] Sep 10, 2024 01:00 PM AMBULATORY - PS[facility]CHIATRY [facility] [place] [facility] Sep 16, 2024 09:00 AM AMBULATORY - MEDICINE [facility] [place] [facility] Sep 17, 2024 01:00 PM AMBULATORY - PSYCHIATRY [facility] [place] [facility] Sep 24, 2024 11:30 AM AMBULATORY - PS[facility]CHIATRY [facility] [place] [facility] Oct 08, 2024 01:00 PM AMBULATORY - PS[facility]CHIATRY [facility] [place] [facility] October 29, 2024 01:00 PM AMBULATORY - PS[facility]CHIATRY [facility] [place] [facility] November 05, 2024 01:00 PM [facility] November 12, 2024 01:00 PM [facility] November 19[facility] 2024 01:00 PM [facility] Dec 10, 2024 01:00 PM AMBULATORY - PSYCHIATRY [facility] Dec 17, 2024 01:00 PM AMBULATORY PSYCHIATRY [facility] Social History: Smoking Status (Most [...] 01:00 PM VA-TOBACCO NEVER U SED CIGARETTES [facility] Tobacco [...] the Encounter. Date/Time Encounter Note(s) Provider Source Jul 02, 2024 02:18 PM MENTAL HEALTH NOTE: LOCAL TITLE: CBT DEPRESSION THERAPY NOTE STANDARD TITLE: MENTAL HEALTH NOTE DATE OF NOTE: JUL 02, 2024@14:18 ENTRY DATE: JUL 02, 2024@14:18:15 AUTHOR: ROBERT RODRIGUEZ EXP COSIGNER: URGENCY: STATUS: COMPLETED [facility] ([facility]) Standard Documentation [facility] Clinician Resources Only: E911 (Emergency Call Relay Center): [phone] [facility] Crisis Line - 988 then press #1. CWLorenzo Suicide Coordinator [phone], Ext. [phone]; Back-up Ext. [phone] [place] Police, DEYALorenzo, Kassandra [phone] Introduction: Visit is being conducted by [place] [facility]. [place] identified with 2 identifiers: [X] Full Name [X] Date of [ ] VA ID Card Emergency Plan: [place] confirmed and/or provided the following information in case of emergency or technology failure. PATIENT PHONE - PHONE NUMBER [CELLULAR] - Is patient phone number correct, if not, enter below: 's phone number: JAYLAN ALVAREZ [address], [place], [address] 's present location and address for appointment: see chart 's emergency contact name and phone number: see chart [place] reported that location is private and safe: Yes Informed Consent: [place] informed of the risks and benefits of Telehealth video care. has the right to refuse video services. If refuses video visit, a [id number] visit will be scheduled. [place] verbalized consent for this video visit: Yes [place] provided consent for any other persons present for visit: N/A If yes, who and relationship to patient: Secure visit: Visit was locked for security and privacy:Yes --------- COGNITIVE BEHAVIORAL THERAPY FOR DEPRESSION (CBT-D): MIDDLE PHASE Time in session (in minutes): 50 SESSION NUMBER: 2 DIAGNOSIS: Major Depressive Disorder, Moderate, Recurrent Secondary (if applicable): PTSD, Chronic ASSESSMENT Date Instrument Raw Trans Scale 07/02/2024 12:34 PHQ9 13 PHQ9 06/18/2024 12:38 PHQ9 21 PHQ9 03/18/2023 10:12 PHQ9 10 PHQ9 Click below to perform PHQ-9 CHANGE IN PHQ-9 SCORE CHANGES IN ASSESSMENT SCORES FROM EARLIER ADMINISTRATIONS: [place] reported a reduction in her depressed mood. She stated that she has been engaging in more exercise and working less overtime which helped improve mood. Nash continues to report drowsiness in the morning and difficulty getting out of bed due to sleepiness. She attributes this to medication changes. MENTAL STATUS AND BEHAVIORAL OBSERVATIONS: Nash arrived [...] cooperative, and engaged. SESSION CONTENT: In this middle phase session of Cognitive Behavioral Therapy (CBT) for depression, the following therapeutic activities were performed: BRIDGE FROM LAST SESSION Therapist inquired about what the [place] found important or helpful from the last session and if the had any concerns about the last session. Therapist inquired about the degree to which the homework was completed and what was learned from the homework assessment. PRIORITIZED AGENDA The therapist and collaboratively developed a prioritized agenda. BEHAVIORAL STRATEGIES: The following behavioral strategies were discussed during the session: Identified Rojas Behaviors Activity Monitoring Identified Pleasant or Meaningful Activities Nash reported that she would like to increase engagement in exercise classes (jiu jitsu or boxing, yoga) and solo-exercise (hiking, pelaton bike at home). 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 Nash added that she finds it meaningful and pleasurable to bring her son to [employer] in the Spring and Fall too. Depression has made it difficult for her to feel motivated to attend exercise classes in recent months. Working significant overtime hours has been an added barrier in the past to engaging in other activities. She noted that prolonged drowsiness upon waking also makes it difficult for her to engage in some classes. Nash shared her tendency to want to lay in bed where she feels safe. She stated that she does not have much interest in creating or strengthening social relationships. Nash described a pattern of feeling like she does not belong or is not accepted. She stated that she often is in between extreme groups of people and provided several examples. Therapist employed the Guided Discovery method when incorporating cognitive and/or behavioral strategies COLLABORATIVE HOMEWORK ASSIGNMENT: The homework assignment for this session was: weekly activity monitoring The homework assignment and goal of the assignment was written down. The therapist inquired about 's understanding of the homework assignment and its rationale. Therapist and [place] discussed the likelihood that the will do the homework. Specific roadblocks or challenges for doing the homework were discussed. FINAL SUMMARY AND FEEDBACK: [place] reported that completing her activity log will be helpful for seeing how she is spending her time and where she can increase pleasurable or meaningful activities. [place] added that it also helps give her a sense of accountability. PLAN Next session planned for agreed upon date/time of: Fri 1pm [facility], continue CBT-D Homelessness/Food Insecurity Screen: In the past 2 months, have you been living in stable housing that you own, rent, or stay in as part of a household? Yes - Living in stable housing. Are you worried or concerned that in the next 2 months you may NOT have stable housing that you own, rent, or stay in as part of a household? No - Not worried about housing near future The [place] reports the following: Within the past 12 months, you worried whether your food would run out before you got money to buy more. Never true Within the past 12 months, the food you bought just didn't last and you didn't have money to get more. Never true /mat/ Robert Rodriguez Psy.D. SEXUAL TRAUMA/WOMEN'S PSYCHOLOGIST Signed: 07/02/2024 14:44 ROBERT RODRIGUEZ [facility] [place] [facility] Jul 02, 2024 12:39 PM MENTAL HEALTH DIAGNOSTIC STUDY NOTE: LOCAL TITLE: MENTAL HEALTH DIAGNOSTIC STUDY STANDARD TITLE: MENTAL HEALTH DIAGNOSTIC STUDY NOTE DATE OF NOTE: JUL 02, 2024@12:39:19 ENTRY DATE: JUL 02, 2024@12:39:20 AUTHOR: ROBERT RODRIGUEZ COSIGNER: URGENCY: STATUS: COMPLETED Assessments were sent to the [place] via text/email. These assessments were completed by JAYLAN ALVAREZ) on their own device on 07/02/2024 12:34:21 PM. PATIENT HEALTH QUESTIONNAIRE-9 (PHQ-9) The patient reported some symptoms of depression; symptoms are not consistent with a major depressive episode. Patient reported being bothered by the following over the last 2 weeks: 1. Little interest or pleasure: More than half the days 2. Feeling down, depressed or hopeless: More than half the days 3. Trouble sleeping: Several Days 4. Tired, low energy: Nearly every day 5. Poor appetite, over-eating: More than half the days 6. Feelings of failure, guilt: Several Days 7. Trouble concentrating: Several Days 8. Motor retardation, agitation: Several Days 9. Thoughts better off /hurting self: Not at all PHQ-9 total score = 13 1-4 = minimal symptoms 5-9= mild symptoms 10-14= moderate symptoms 15-19= moderately severe symptoms 20-27= severe depressive symptoms The patient stated that the depressive symptoms made it somewhat difficult to work, take care of things at home, or get along with others. PHQ-9 Total Score (past 180 days): 07/02/2024 13 06/18/2024 21 PTSD CHECKLIST (PCL-5) - WEEKLY Patient reported being bothered by the following over the past week: 1. Disturbing memories: Moderately 2. Disturbing dreams: Moderately 3. Re-experiencing events: Moderately 4. Cued distress: Quite a bit 5. Cued physical symptoms: Moderately 6. Avoiding internal reminders: Quite a bit 7. Avoiding external reminders: Quite a bit 8. Trouble with recall: Quite a bit 9. Negative beliefs: Quite a bit 10. Blaming self/others: Quite a bit 11. Negative feelings: Moderately 12. Loss of interest: Quite a bit 13. Feeling distant from others: Quite a bit 14. Feeling numb: Quite a bit 15. Feeling irritable: Quite a bit 16. Reckless behavior: A little bit 17. Being super-alert : Moderately 18. Feeling easily startled: Moderately 19. Difficulty concentrating: Extremely 20. Trouble sleeping: Moderately PCL-5 total score = 51 This measure assesses an individual's perception of [...] DSM-5, is recommended to confirm diagnostic status. PCL-5 Weekly Total Score (past 180 days): 07/02/2024 51 06/18/2024 Kevin /mat/ Robert Rodriguez Psy.D. SEXUAL TRAUMA/WOMEN'S PSYCHOLOGIST Signed: 07/02/2024 12:51 [facility]
--- OUTSIDE RECORDS SUMMARY | 2024-07-09 09:00 | XMS_ITS | Encounter Summary ---
Author Name [facility] [facility] Address [address] [place] [address] Care Team Providers Care Operations Project Manager Name Role Phone TRINH FRANCO Primary [...] Patient's Relationship to Policy [employer] ([phone]) PRESCRIPT ION [facility] Jun 07, 2022 [id number] [phone] Jelani ALVAREZ PATIENT Selected Encounter This section includes the information on record at [place] for the Encounter. Date/Time Encounter Type Encounter Description Reason Provider Source Jul 09, 2024 01:00 PM PSYTX W PT 45 MINUTES [facility] - IND ICD-10-CM F43.12 Post-traumatic stress disorder, chronic CAMPONOGARA,SA LIYAH E Encounter Template Text not used by [place] Assessments - Encounter Diagnoses This section includes the primary and secondary diagnoses documented for the Encounter. Date/Time Primary/Secondary Diagnosis Diagnosis Name Provider Source Jul 09, 2024 02:32 PM PRIMARY Post-traumatic stress disorder, chronic CAMPONOGARA,SA LIYAH [facility] [place] [facility] Jul 09, 2024 02:32 PM SECONDARY Major depressive disorder, recurrent, moderate CAMPONOGARA,SA LIYAH [facility] [place] [facility] Plan of Treatment: Future Appointments (+ 6 months) and Future Tests (+/- 45 days) The Plan of Treatment section includes future care activities for the patient from all [place] treatmentfacilities. This section includes future appointments and future orders which are active, pending or scheduled. Future Appointments This section includes appointments that were scheduled to occur 6 months from the date of the Encounter, up to a maximum of 20 appointments. The data comes from all [place] treatment facilities. Appointment Date/Time Appointment Type Appointme nt Facility Name Jul 16, 2024 01:00 PM AMBULATORY - [facility]IATRY [facility] [place] [facility] Jul 19, 2024 10:00 AM AMBULATORY - [facility] [place] [facility] Jul 23, 2024 01:00 PM AMBULATORY [facility] [place] [facility] Jul 30, 2024 01:00 PM [facility]UL[facility]ORY [facility] [place] [facility] Aug 13, 2024 01:00 PM [facility]UL[facility] [place] [facility] Aug 19, 2024 02:00 PM [facility]ULATORY [facility]ICINE [facility] [place] [facility] Aug 20, 2024 01:00 PM AMBULATORY [facility] [place] [facility] Aug 27, 2024 01:00 PM AMBUL[facility]ORY - [facility] [place] [facility] Sep 10, 2024 01:00 PM AMBUL[facility]ORY - [facility] [place] [facility] Sep 16, 2024 09:00 AM [facility] [place] [facility] Sep 17, 2024 01:00 PM AMBULATORY - PS[facility]CHIATRY [facility] [place] [facility] Sep 24, 2024 11:30 AM AMBULATORY - PS[facility]IAT[facility] [place] [facility] Oct 08, 2024 01:00 PM AMBULATORY - PS[facility]CHIATRY [facility] [place] [facility] October 29, 2024 01:00 PM AMBULATORY - PS[facility]CHIAT[facility] [place] [facility] November 05, 2024 01:00 PM AMBULATORY - PS[facility]IAT[facility] [place] [facility] November 12, 2024 01:00 PM [facility] [place] November 19, 2024 01:00 PM [facility] [place] [facility] [place] Dec 10, 2024 01:00 PM [facility] [place] Dec 17, 2024 01:00 PM [facility] [place] [facility] [place] Dec 22, 2024 10:15 AM [facility] Social History: Smoking Status (Most current) and Tobacco Use (All prior to encounter date) This section includes the most current, and the historical, smoking and tobacco- related health factors from the [place] facility where the Encounter took place. Current Smoking Status This section includes the most current smoking, or tobacco-related health factor, from the [place] facility where the Encounter took place. Date/Time Current Smoking Status Comment Facil ity May 14, 2024 01:00 PM VA-TOBACCO NEVER U SED CIGARETTES [facility] Tobacco Use History This section includes a history of the smoking, or tobacco-related health factors, that were collected on or before the date of the Encounter. The data comes from the [place] facility where the Encounter took place. Date/Time Smoking Status/Tobacco Use Comment F acility May 14, 2024 01:00 PM VA-TOBACCO NEVER U SED OTHER TYPE [facility] Advance Directives: All historical and current Section Date Range: From patient's date of to the date document was created. This section includes ALL of a patient's completed or amended [place] Advance and Rescinded Directives. The entries below indicate that a directive exists for the patient, but an actual copy is not included with this document. The data comes from all [place] facilities. Date Advance Directives Provider Source Mar 25, 2023 ADVANCE DIRECTIVE PETROS MOTLEY Encounter Notes: All associated encounter notes This section contains the clinical notes associated to the Encounter. Date/Time Encounter Note(s) Provider Source Jul 09, 2024 02:22 PM MENTAL HEALTH NOTE: LOCAL TITLE: CBT DEPRESSION THERAPY NOTE STANDARD TITLE: MENTAL HEALTH NOTE DATE OF NOTE: JUL 09, 2024@14:22 ENTRY DATE: JUL 09, 2024@14:22:44 AUTHOR: ROBERT RODRIGUEZ EXP COSIGNER: URGENCY: STATUS: COMPLETED [facility] ([facility]) Standard Documentation [facility] Clinician Resources Only: E911 (Emergency Call Relay Center): [phone] [facility] Crisis Line - 988 then press #1. CWLorenzo Suicide Coordinator [phone], Ext. [phone]; Back-up Ext. [phone] [place] Police, DEYALorenzo, Kassandra [phone] Introduction: Visit is being conducted by [place] [facility]. identified with 2 identifiers: [X] Full Name [X] Date of [ ] VA ID Card Emergency Plan: [place] confirmed and/or provided the following information in case of emergency or technology failure. PATIENT PHONE - PHONE NUMBER [CELLULAR] - Is patient phone number correct, if not, enter below: [place]'s phone number: JAYLAN ALVAREZ [address], [place], [address] [place]'s present location and address for appointment: see chart 's emergency contact name and phone number: see chart [place] reported that location is private and safe: Yes Informed Consent: informed of the risks and benefits of Telehealth video care. has the right to refuse video services. If refuses video visit, a [id number] visit will be scheduled. verbalized consent for this video visit: Yes provided consent for any other persons present for visit: N/A If yes, who and relationship to patient: Secure visit: Visit was locked for security and privacy:Yes --------- COGNITIVE BEHAVIORAL THERAPY FOR DEPRESSION (CBT-D): MIDDLE PHASE Time in session (in minutes): 50 SESSION NUMBER: 3 ASSESSMENT Date Instrument Raw Trans Scale 07/09/2024 12:34 PHQ9 23 PHQ9 07/02/2024 12:34 PHQ9 13 PHQ9 06/18/2024 12:38 PHQ9 21 PHQ9 03/18/2023 10:12 PHQ9 10 PHQ9 MENTAL STATUS/BEHAVIORAL OBSERVATIONS arrived to the appointment on time and was dressed appropriate to context. was oriented x4, and her thought process was linear, logical, and coherent. She described her mood as depressed and her affect was expressive, stable, and consistent with stated mood. Speech and motor activity fell within normal limits. Nash was polite, cooperative, and engaged. Nash denied suicidal and homicidal ideation, plan, and intent. SESSION CONTENT: In this middle phase session of Cognitive Behavioral Therapy (CBT) for depression, the following therapeutic activities were performed: BRIDGE FROM LAST SESSION Therapist inquired about what the found important or helpful from the last session and if the [place] had any concerns about the last session. Therapist inquired about the degree to which the homework was completed and what was learned from the homework assessment. PRIORITIZED AGENDA The therapist and [place] collaboratively developed a prioritized agenda. BEHAVIORAL STRATEGIES: The following behavioral strategies were discussed during the session: Identified Rojas Behaviors Activity Monitoring Behavioral Activation Nash did not complete the weekly activity log. She internally noted which activities result in pleasure and mastery. Nash shared a number of activities that brought her a sense of pleasure and mastery, including sleeping/resting ( I feel safe and comfortable ), working, exercise bike, and helping her son on the exercise bike. She stated that she did not feel motivated to do many activities outside of work. Nash discussed the sequence of thoughts and feelings that arose preventing her from attending her planned workouts. We discussed strategies for attending the workout when motivation is low (i.e., remember the rationale, the consequences of not moving). COGNITIVE STRATEGIES: The following cognitive strategies were discussed during the session: Identified Automatic Thoughts Noted and discussed in-session mood shift Monitored automatic thoughts and mood Identified Core Beliefs/Intermediate Beliefs/Compensatory Strategies Nash identified the belief that she does not matter. She noted that much of her time in recent years has been spent focusing on caring for others and her home while not taking care of herself. Nash stated that when she is not chosen for a job despite meeting qualifications, she wonders what she is doing wrong and what more she can do to fix it. Historically, Nash then extends herself further to be more involved and volunteer for more things in hopes of making helpful connections. Therapist employed the Guided Discovery method when incorporating cognitive and/or behavioral strategies COLLABORATIVE HOMEWORK ASSIGNMENT: The homework assignment for this session was: weekly activity log The homework assignment and goal of the assignment was written down. The therapist inquired about 's understanding of the homework assignment and its rationale. Therapist and discussed the likelihood that the will do the homework. Specific roadblocks or challenges for doing the homework were discussed. FINAL SUMMARY AND FEEDBACK: [place] denied any concerns about the therapeutic process thus far. She added that exposure to working in an environment that exposes her to a lot of traumatized individuals, and where trauma sometimes occurs (i.e., overdosed person), also impacts her mood. PLAN: The next session is scheduled for Fri at 1pm [facility]. Continue CBT-D. /es/ Robert Rodriguez Psy.D. SEXUAL TRAUMA/WOMEN'S PSYCHOLOGIST Signed: 07/09/2024 14:33 ROBERT RODRIGUEZ [facility] [place] [facility] Jul 09, 2024 12:52 PM MENTAL HEALTH DIAGNOSTIC STUDY NOTE: LOCAL TITLE: MENTAL HEALTH DIAGNOSTIC STUDY STANDARD TITLE: MENTAL HEALTH DIAGNOSTIC STUDY NOTE DATE OF NOTE: JUL 09, 2024@12:52:57 ENTRY DATE: JUL 09, 2024@12:52:57 AUTHOR: ROBERT RODRIGUEZ EXP COSIGNER: URGENCY: STATUS: COMPLETED Assessments were sent to the via text/email. These assessments were completed by JAYLAN ALVAREZ) on their own device on 07/09/2024 12:34:48 PM. PATIENT HEALTH QUESTIONNAIRE-9 (PHQ-9) The patient reported symptoms consistent with a major depressive episode. Patient reported being bothered by the following over the last 2 weeks: 1. Little interest or pleasure: Nearly every day 2. Feeling down, depressed or hopeless: Nearly every day 3. Trouble sleeping: Nearly every day 4. Tired, low energy: Nearly every day 5. Poor appetite, over-eating: Nearly every day 6. Feelings of failure, guilt: Nearly every day 7. Trouble concentrating: Nearly every day 8. Motor retardation, agitation: More than half the days 9. Thoughts better off /hurting self: Not at all PHQ-9 total score = 23 1-4 = minimal symptoms 5-9= mild symptoms 10-14= moderate symptoms 15-19= moderately severe symptoms 20-27= severe depressive symptoms The patient stated that the depressive symptoms made it extremely difficult to work, take care of things at home, or get along with others. PHQ-9 Total Score (past 180 days): 07/09/2024 23 07/02/2024 13 06/18/2024 21 PTSD CHECKLIST (PCL-5) - WEEKLY Patient reported being bothered by the following over the past week: 1. Disturbing memories: Quite a bit 2. Disturbing dreams: Extremely 3. Re-experiencing events: Quite a bit 4. Cued distress: Moderately 5. Cued physical symptoms: Quite a bit 6. Avoiding internal reminders: Quite a bit 7. Avoiding external reminders: Extremely 8. Trouble with recall: Extremely 9. Negative beliefs: Extremely 10. Blaming self/others: Quite a bit 11. Negative feelings: Quite a bit 12. Loss of interest: Extremely 13. Feeling distant from others: Quite a bit 14. Feeling numb: Quite a bit 15. Feeling irritable: Quite a bit 16. Reckless behavior: Moderately 17. Being super-alert : Quite a bit 18. Feeling easily startled: Quite a bit 19. Difficulty concentrating: Extremely 20. Trouble sleeping: Extremely PCL-5 total score = 65 This measure assesses an individual's perception of [...] PCL-5 Weekly Total Score (past 180 days): 07/09/2024 65 07/02/2024 51 06/18/2024 Kevin /mat/ Robert Rodriguez Psy.D. SEXUAL TRAUMA/WOMEN'S PSYCHOLOGIST Signed: 07/09/2024 14:22 ROBERT RODRIGUEZ [facility] [place]
--- OUTSIDE RECORDS SUMMARY | 2024-07-16 09:00 | XMS_ITS | Encounter Summary ---
Author Name [facility] Organization [facility] Address [address] [place] [address] Care Team Providers Care Quarter Folder Name Role Phone TRINH FRANCO Primary Care [...] Patient's Relationship to Policy [facility] [employer] ([id number]) PRESCRIPT [facility] Jun 07, 2022 [id number] PATIENT Selected Encounter This section includes the information on record at [place] for the Encounter. Date/Time Encounter Type Encounter Description Reason Provider Source Jul 16, 2024 01:00 PM PSYTX W PT 60 MINUTES [facility] - IND ICD-10-CM F33.1 Major depressive disorder, recurrent, moderate CAMPONOGARA,SA LIYAH E Encounter Template Text not used by [place] Assessments - Encounter Diagnoses This section includes the primary and secondary diagnoses documented for the Encounter. Date/Time Primary/Secondary Diagnosis Diagnosis Name Provider Source Jul 16, 2024 03:38 PM PRIMARY Major depressive disorder, recurrent, moderate CAMPONOGARA,SA LIYAH [facility] [place] [facility] Jul 16, 2024 03:38 PM SECONDARY Post-traumatic stress disorder, chronic CAMPONOGARA,SA LIYAH [facility] [place] [facility] Plan of Treatment: Future Appointments (+ 6 months) and Future Tests (+/- 45 days) The Plan of Treatment section includes future care activities for the patient from all [place] treatmentfacilities. This section includes future appointments and future orders which are active, pending or scheduled. Future Appointments This section includes appointments that were scheduled to occur 6 months from the date of the Encounter, up to a maximum of 20 appointments. The data comes from all [place] treatment facilities. Appointment Date/Time Appointment Type Appointme nt Facility Name Jul 19, 2024 10:00 AM AMBULATORY - PSYCHIATRY [facility] [place] [facility] Jul 23, 2024 01:00 PM AMBULATORY - PS[facility]IATRY [facility] [place] [facility] Jul 30, 2024 01:00 PM AMBULATORY - PS[facility]IATRY [facility] [place] [facility] Aug 13, 2024 01:00 PM AMBULATORY - PS[facility]CHIATRY [facility] [place] [facility] Aug 19, 2024 02:00 PM AMBULATORY - MEDICINE [facility] [place] [facility] Aug 20, 2024 01:00 PM AMBULATORY - PS[facility]CHIATRY [facility] [place] [facility] Aug 27, 2024 01:00 PM AMBULATORY - PS[facility]CHIATRY [facility] [place] [facility] Sep 10, 2024 01:00 PM AMBULATORY - PS[facility]CHIATRY [facility] [place] [facility] Sep 16, 2024 09:00 AM AMBULATORY - MEDICINE [facility] [place] [facility] Sep 17, 2024 01:00 PM AMBULATORY - PS[facility]CHIATRY [facility] [place] [facility] Sep 24, 2024 11:30 AM AMBULATORY - PS[facility]CHIATRY [facility] [place] [facility] Oct 08, 2024 01:00 PM AMBULATORY - PSYCHIATRY [facility] [place] [facility] October 29, 2024 01:00 PM AMBULATORY - PS[facility]CHIATRY [facility] [place] [facility] November 05, 2024 01:00 PM AMBULATORY - PS[facility]CHIATRY [facility] [place] [facility] November 12, 2024 01:00 PM AMBULATORY - PS[facility]CHIATRY [facility] [place] [facility] November 19, 2024 01:00 PM AMBULATORY - [facility]IATRY [facility] Dec 10, 2024 01:00 PM AMBULATORY - [facility]CHIATRY [facility] Dec 17, 2024 01:00 PM [facility] Dec 22, 2024 10:15 AM AM[facility]UL[facility] Dec 23, 2024 01:30 PM AMBULATORY - MEDICINE [facility] Social History: Smoking Status (Most current) and Tobacco Use (All prior to encounter date) This section includes the most current, and the historical, smoking and tobacco- related health factors from the [place] facility where the Encounter took place. Current Smoking Status This section includes the most current smoking, or tobacco-related health factor, from the [place] facility where the Encounter took place. Date/Time Current Smoking Status Comment Facil ity May 14, 2024 01:00 PM VA-TOBACCO NEVER U SED CIGARETTES [facility] Tobacco Use History This section includes a history of the smoking, or tobacco-related health factors, that were collected on or before the date of the Encounter. The data comes from the [place] facility where the Encounter took place. Date/Time Smoking Status/Tobacco Use Comment F acility May 14, 2024 01:00 PM VA-TOBACCO NEVER U SED OTHER TYPE [facility] Advance Directives: All historical and current Section Date Range: From patient's date of to the date document was created. This section includes ALL of a patient's completed or amended [place] Advance and Rescinded Directives. The entries below indicate that a directive exists for the patient, but an actual copy is not included with this document. The data comes from all [place] facilities. Date Advance Directives Provider Source Mar 25, 2023 ADVANCE DIRECTIVE PETROS MOTLEY Encounter Notes: All associated encounter notes This section contains the clinical notes associated to the Encounter. Date/Time Encounter Note(s) Provider Source Jul 16, 2024 03:31 PM MENTAL HEALTH NOTE: LOCAL TITLE: CBT DEPRESSION THERAPY NOTE STANDARD TITLE: MENTAL HEALTH NOTE DATE OF NOTE: JUL 16, 2024@15:31 ENTRY DATE: JUL 16, 2024@15:31:12 AUTHOR: ROBERT RODRIGUEZ EXP COSIGNER: URGENCY: STATUS: COMPLETED [facility] ([facility]VC) Standard Documentation [facility] Clinician Resources Only: E911 (Emergency Call Relay Center): [phone] [facility] Crisis Line - 988 then press #1. CWLorenzo Suicide Coordinator [phone], Ext. [phone]; Back-up Ext. [phone] [place] Police, Kassandra HERNANDEZ [phone] Introduction: Visit is being conducted by [place] [facility]. [place] identified with 2 identifiers: [X] Full Name [X] Date of [ ] VA ID Card Emergency Plan: confirmed and/or provided the following information in case of emergency or technology failure. PATIENT PHONE - PHONE NUMBER [CELLULAR] - Is patient phone number correct, if not, enter below: [place]'s phone number: JAYLAN ALVAREZ [address], [place], [address] 's present location and address for appointment: see chart [place]'s emergency contact name and phone number: see chart [place] reported that location is private and safe: Yes Informed Consent: informed of the risks and benefits of Telehealth video care. [place] has the right to refuse video services. If refuses video visit, a [id number] visit will be scheduled. verbalized consent for this video visit: Yes provided consent for any other persons present for visit: N/A If yes, who and relationship to patient: Secure visit: Visit was locked for security and privacy:Yes --------- COGNITIVE BEHAVIORAL THERAPY FOR DEPRESSION (CBT-D): MIDDLE PHASE Time in session (in minutes): 55. The length of this appt was necessary in order to attend to evidence-based practice, measurement-based care, safety concerns, and conducting effective and ethical psychotherapy. SESSION NUMBER: 4 DIAGNOSIS: Major Depressive Disorder, Moderate, Recurrent Secondary (if applicable): PTSD, Chronic ASSESSMENT Date Instrument Raw Trans Scale 07/16/2024 12:34 PHQ9 23 PHQ9 07/09/2024 12:34 PHQ9 23 PHQ9 07/02/2024 12:34 PHQ9 13 PHQ9 06/18/2024 12:38 PHQ9 21 PHQ9 03/18/2023 10:12 PHQ9 10 PHQ9 MENTAL STATUS/BEHAVIORAL OBSERVATIONS Nash arrived to the appointment on time and was dressed appropriate to context. Nash was oriented x4, and her thought process was linear, logical, and coherent. She described her mood as depressed and her affect was expressive, stable, and consistent with stated mood. Speech and motor activity fell within normal limits. was polite, cooperative, and engaged. denied suicidal and homicidal ideation, plan, and [...] behavioral strategies were discussed during the session: Activity Monitoring Identified Pleasant or Meaningful Activities Activity Scheduling [place] completed the weekly activity log. She noticed that she experiences less pleasure and mastery when she is less active (i.e., sleeping, laying in bed, mindless work) compared to when she is active (i.e., exercising, walking, running errands, helping the kids, working). Nash reported high pleasure and mastery when she engages in tasks that benefit others. She noted feeling energized, but not less depressed, when she engages in pleasurable or masterful activities. We discussed the rationale for increasing meaningful activities on a daily basis, especially in the mornings when her depression is most severe. She identified 1 task to do daily: stretching; and 1 task to do 2x this week: organize the basement. Therapist employed the Guided Discovery method when incorporating cognitive and/or behavioral strategies COLLABORATIVE HOMEWORK ASSIGNMENT: The homework assignment for this session was: weekly activity log, increase pleasurable activities The homework assignment and goal of the assignment was written down. The therapist inquired about 's understanding of the homework assignment and its rationale. Therapist and discussed the likelihood that the will do the homework. Specific roadblocks or challenges for doing the homework were discussed. FINAL SUMMARY AND FEEDBACK: noted that she ended the relationship with her partner of five years. She has blocked him to prevent future communications or opening that door back up. [place] processed her thoughts and feelings related to the end of their relationship and how it impacts her teenage daughter. PLAN Next session planned for agreed upon date/time of: Fri 1pm, continue CBT-D Additional notes regarding scheduling or plan: /mat/ Robert Rodriguez Psy.D. SEXUAL TRAUMA/WOMEN'S PSYCHOLOGIST Signed: 07/16/2024 15:39 ROBERT RODRIGUEZ [facility] [place] [facility] Jul 16, 2024 12:52 PM MENTAL HEALTH DIAGNOSTIC STUDY NOTE: LOCAL TITLE: MENTAL HEALTH DIAGNOSTIC STUDY STANDARD TITLE: MENTAL HEALTH DIAGNOSTIC STUDY NOTE DATE OF NOTE: JUL 16, 2024@12:52:04 ENTRY DATE: JUL 16, 2024@12:52:04 AUTHOR: ROBERT RODRIGUEZ EXP COSIGNER: URGENCY: STATUS: COMPLETED Assessments were sent to the via text/email. These assessments were completed by JAYLAN ALVAREZ) on their own device on 07/16/2024 12:34:54 PM. PATIENT HEALTH QUESTIONNAIRE-9 (PHQ-9) The patient [...] every day 6. Feelings of failure, guilt: More than half the days 7. Trouble concentrating: Nearly every day 8. Motor retardation, agitation: Nearly every day [...] others. PHQ-9 Total Score (past 180 days): 07/16/2024 23 07/09/2024 23 07/02/2024 13 06/18/2024 21 PTSD CHECKLIST (PCL-5) - WEEKLY Patient reported being bothered by the following over the past week: 1. Disturbing memories: Quite a bit 2. Disturbing dreams: Quite a bit 3. Re-experiencing events: Moderately 4. Cued distress: Moderately 5. Cued physical symptoms: Moderately 6. Avoiding internal reminders: Quite a bit 7. Avoiding external reminders: Moderately 8. Trouble with recall: Quite a bit 9. Negative beliefs: Quite a bit 10. Blaming self/others: Extremely 11. Negative feelings: Moderately 12. Loss of interest: Quite a bit 13. Feeling distant from others: Quite a bit 14. Feeling numb: Quite a bit 15. Feeling irritable: Quite a bit 16. Reckless behavior: A little bit 17. Being super-alert : Quite a bit 18. Feeling easily startled: Quite a bit 19. Difficulty concentrating: Quite a bit 20. Trouble sleeping: Extremely PCL-5 total score = 55 This measure assesses an individual's perception of [...] PCL-5 Weekly Total Score (past 180 days): 07/16/2024 55 07/09/2024 65 07/02/2024 51 06/18/2024 49 /mat/ Robert TatumDKitty SEXUAL TRAUMA/WOMEN'S PSYCHOLOGIST Signed: 07/16/2024 15:39 [facility]
--- OUTSIDE RECORDS SUMMARY | 2024-07-19 06:00 | XMS_ITS | Encounter Summary ---
Author Name [facility] Organization [facility] [place] Address [address] [place] [address] Care Team Providers Care Personal Trainer Name Role Phone TRINH FRANCO Primary Care [...] Patient's Relationship to Policy [facility] [employer] ([id number]) PRESCRIPT ION [facility] Jun 07, 2022 [id number] PATIENT Selected Encounter This section includes the information on record at [place] for the Encounter. Date/Time Encounter Type Encounter Description Reason Provider Source Jul 19, 2024 10:00 AM OFFICE O/P EST LOW 20 [facility] - IND ICD-10-CM F34.1 Dysthymic disorder SAUD LOUIE Junior Encounter Template Text not used by [facility] Assessments - Encounter Diagnoses This section includes the primary and secondary diagnoses documented for the Encounter. Date/Time Primary/Secondary Diagnosis Diagnosis Name Provider Source Jul 19, 2024 10:15 AM PRIMARY Dysthymic disorder SAUD LOUIE Jul 19, 2024 10:15 AM SECONDARY Post-traumatic stress disorder, chronic SAUD LOUIE Plan of Treatment: Future Appointments (+ 6 months) and Future Tests (+/- 45 days) The Plan of Treatment section includes future care activities for the patient from all [place] [facility]. This section includes future appointments and future orders which are active, pending or scheduled. Future Appointments This section includes appointments that were scheduled to occur 6 months from the date of the Encounter, up to a maximum of 20 appointments. The data comes from all [place] treatment facilities. Appointment Date/Time Appointment Type Appointme nt Facility Name Jul 23, 2024 01:00 PM AMBULATORY [facility] [place] [facility] Jul 30, 2024 01:00 PM AMBULATORY [facility] [place] [facility] Aug 13, 2024 01:00 PM AMBULATORY - [facility] [place] [facility] Aug 19, 2024 02:00 PM [facility]ULATORY [facility]ICINE [facility] [place] [facility] Aug 20, 2024 01:00 PM AM[facility]ULATORY [facility] [place] [facility] Aug 27, 2024 01:00 PM AMBULATORY - PS[facility] [place] [facility] Sep 10, 2024 01:00 PM AMBULATORY [facility] [place] [facility] Sep 16, 2024 09:00 AM [facility]ORY [facility] [place] [facility] Sep 17, 2024 01:00 PM AMBULATORY [facility] PS[facility] [place] [facility] Sep 24, 2024 11:30 AM AMBULATORY - PS[facility] [place] [facility] Oct 08, 2024 01:00 PM AMBULATORY - PS[facility] [place] [facility] October 29, 2024 01:00 PM AMBULATORY [facility] PS[facility] [place] [facility] November 05, 2024 01:00 PM AMBULATORY - PS[facility] [place] [facility] November 12, 2024 01:00 PM AMBULATORY - PS[facility] [place] [facility] November 19, 2024 01:00 PM AMBULATORY - PS[facility] [place] [facility] Dec 10, 2024 01:00 PM AMBULATORY - PS[facility] [place] [facility] Dec 17, 2024 01:00 PM AMBULATORY [facility] [place] [facility] Dec 22, 2024 10:15 AM AMBULATORY [facility] MEDICINE [facility] [place] [facility] Dec 23, 2024 01:30 PM AM[facility]ORY [facility]ICINE [facility] [place] [facility] Dec 31, 2024 01:00 PM AMBULATORY - PSYCHIATRY [facility] Social History: Smoking Status (Most current) and Tobacco Use (All prior to encounter date) This section includes the most current, and the historical, smoking and tobacco- related health factors from the [facility] facility where the Encounter took place. Current Smoking Status This section includes the most current smoking, or tobacco-related health factor, from the [place] facility where the Encounter took place. Date/Time Current Smoking Status Comment Facil ity Mar 18, 2023 09:00 AM VA-TOBACCO NEVER USED [place] Advance Directives: All historical and current Section Date Range: From patient's date of to the date document was created. This section includes ALL of a patient's completed or amended VA Advance and Rescinded Directives. The entries below indicate that a directive exists for the patient, but an actual copy is not included with this document. The data comes from all [place] facilities. Date Advance Directives Provider Source Mar 25, 2023 ADV[facility] DIRECTIVE [facility] Encounter Notes: All associated encounter notes This section contains the clinical notes associated to the Encounter. Date/Time Encounter Note(s) Provider Source Jul 19, 2024 10:16 AM ACCOUNTING OF DISC LOSURES NOTE: LOCAL TITLE: STATE PRESCRIPTION DRUG MONITORING PROGRAM STANDARD TITLE: ACCOUNTING OF DISCLOSURES NOTE DATE OF NOTE: JUL 19, 2024@10:16:16 ENTRY DATE: JUL 19, 2024@10:16:16 AUTHOR: SAUD LOUIE EXP COSIGNER: URGENCY: STATUS: COMPLETED This PDMP query was submitted by Saud Louie The clinical justification for this PDMP query is to review controlled substances prescribed outside of the VA, and any additional information that may become available, as an important component of standard clinical care, and in accordance with [facility] policy. Patient information was shared with the PDMP Appriss [place]. No prescription(s) for controlled substances outside the VA were found in the last 90 days. /mat/ SAUD LOUIE M.D. Signed: 07/19/2024 10:16 SAUD LOUIE [place] Jul 19, 2024 10:02 AM TELEHEALTH NOTE: LOCAL TITLE: VA VIDEO CONNECT PSYCHIATRIST NOTE STANDARD TITLE: TELEHEALTH NOTE DATE OF NOTE: JUL 19, 2024@10:02 ENTRY DATE: JUL 19, 2024@10:02:29 AUTHOR: SAUD LOUIE EXP COSIGNER: URGENCY: STATUS: COMPLETED VA Video Connect (VVC) Standard Documentation VVC Clinician Resources Only: E911 (Emergency Call Relay Center): [phone] [place] [facility] Crisis Line - 988 then press #1. [facility] Suicide Coordinator [phone], Ext. [phone]; Back-up Ext. [phone] [place] Police, Kassandra HERNANDEZ [phone] Introduction: Visit is being conducted by [place] [facility]. Banks identified with 2 identifiers: [X] Full Name [X] Date of [ ] VA ID Card Emergency Plan: Banks confirmed and/or provided the following information in case of emergency or technology failure. PATIENT PHONE - PHONE NUMBER [CELLULAR] - Is patient phone number correct, if not, enter below: Banks's phone number: JAYLAN ALVAREZ [address], [place], [address] 's present location and address for appointment: same as above Banks's emergency contact name and phone number: unchanged Banks reported that location is private and safe: Yes Informed Consent: informed of the risks and benefits of Telehealth video care. has the right to refuse video services. If refuses video visit, a iwxz-ce-avhw visit will be scheduled. verbalized consent for this video visit: Yes provided consent for any other persons present for visit: N/A If yes, who and relationship to patient: Secure visit: Visit was locked for security and privacy:Yes CHART REVIEW: seen for initial MH Consult 03/18/23 noting: is a 42 year old [employer] [employer] , [facility] to [facility] and presenting for mental health due to frequent tearfulness. She presents with with depression and also screens positive for PTSD due to her job, which was in [employer]gig services in [facility] and reports that this, along with [...] TIME OF INITIAL VISIT WITH MYSELF 04/29/23: Banks reports no prior MH treatment. 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 [employer]. She built a good group of friends who she stayed in touch with for a long time. 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 Is planning to pursue a claim about possible link between her RA and the anthrax vaccine. 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 She [...] take QHS vs trying a different agent. NEXT VISIT NOTED: We agree to increase Lexapro to 10mg dose again, hoping she can tolerate sedation this time NOTED AT LAST OP VISIT: Nash reports I've been good. Meeting with the therapist every week. Lexapro has been working well. My moods are less up and down, less outbursts. It takes more to get me to cry. I don't feel as overwhelmed. A: she remains dysphoric. She agrees to try increasing to 15mg daily. Note Wellbutrin not tolerated (c/o heart racing). Per psychologist 07/16/24: PHQ-9 total score = 23 The patient stated that the depressive symptoms made it extremely difficult to work, take care of things at home, or get along with others. PCL-5 Weekly Total Score (past 180 days): 07/16/2024 55 07/09/2024 65 07/02/2024 51 06/18/2024 49 Nash noted that she ended the relationship with her partner of five years. She has blocked him to prevent future communications or opening that door back up. Nash processed her thoughts and feelings related to the end of their relationship and how it impacts her teenage daughter. PRESENTING SYMPTOMS AND CONDITION ON TODAY'S VISIT: Banks reports we went up to 15mg Lexapro: I think I'm a little more under control with the emotions. Sometimes I feel fatigued. Sometimes I feel like I want to go back to bed. REVIEW OF SYSTEMS MENTAL HEALTH: SLEEP: good MOOD: some ups and downs but not with the emotions PTSD symptoms: its lessened ANXIETY: improved ANGER/IRRITABILITY/AGGRESSION: Denies SUBSTANCE USE: Alcohol: rare Illegal/non-prescribed drugs: denies TOBACCO: Non-smoker RAJIV/HYPOMANIA: None evident PSYCHOTIC FEATURES: None evident Suicidal Thoughts/Intent/plan: denied Social Status/ Stressors: work is busy, kids CURRENT PSYCH meds: Lexapro 15mg daily ADVERSE EFFECTS: slight tiredness MED REC: on new meds for GI and allergies (in CPRS), On embril lowers my immune system VS: 05/06/2024 13:09 97.8 64 16 134/95 139 MENTAL STATUS EXAMINATION - Appearance and behavior: [...] improvement since the increase in Lexapro to 15mg daily. Only signifant complaint is lethargy. She asks about trying a low dose of a stimulant. I told her I am not comfortable doing so at this time due to recent elevated BP readings and asked her to address this with her PCP. I did suggest she try using light therapy to help with winter blues. i. Severity of Illness: ()none (x)mild ( x)moderately ill ()severely ill ()very severely ill ii. Global Improvement: ()very much (x )much (x )min ( )none ( )min worse ( )much worse ()very much worse [...] for a follow-up appointment with myself in: 12 weeks, sooner if needed Additional Follow-Up instructions: 1. Reinforced: If urgent treatment is needed, call 211, [phone], 911 or go to the nearest Emergency Room 2. To schedule or change an appointment, inquire about medication refills, etc: call office number during normal office hours Diagnoses: History of dysthymia (SCT [id number]) - Dysthymic disorder (ICD-10-CM F34.1) (Primary) Chronic post-traumatic stress disorder (SCT [id number]) - Post-traumatic stress disorder, chronic (ICD-10-CM F43.12) /mat/ SAUD LOUIE M.D. Signed: 07/19/2024 10:16 SAUD LOUIE
--- OUTSIDE RECORDS SUMMARY | 2024-07-23 09:00 | XMS_ITS | Encounter Summary ---
Author Name [facility] Organization [facility] Address [address] [place] [address] Care Team Providers Care Director Of Logistics Name Role Phone TRINH FRANCO Primary Care [...] Patient's Relationship to Policy [facility] [employer] ([id number]) PRESCRIPT ION [facility] Jun 07, 2022 [id number] ALVAREZ PATIENT Selected Encounter This section includes the information on record at [place] for the Encounter. Date/Time Encounter Type Encounter Description Reason Provider Source Jul 23, 2024 01:00 PM PSYTX W PT 45 MINUTES [facility] - IND ICD-10-CM F43.12 Post-traumatic stress disorder, chronic CAMPONOGARA,SA LIYAH E Encounter Template Text not used by [place] Assessments - Encounter Diagnoses This section includes the primary and secondary diagnoses documented for the Encounter. Date/Time Primary/Secondary Diagnosis Diagnosis Name Provider Source Jul 23, 2024 03:36 PM PRIMARY Post-traumatic stress disorder, chronic CAMPONOGARA,SA LIYAH [facility] [place] [facility] Jul 23, 2024 03:36 PM SECONDARY Major depressive disorder, recurrent, moderate CAMPONOGARA,SA LIYAH [facility] [place] [facility] Plan of Treatment: Future Appointments (+ 6 months) and Future Tests (+/- 45 days) The Plan of Treatment section includes future care activities for the patient from all [place] treatmentfacilities. This section includes future appointments and future orders which are active, pending or scheduled. Future Appointments This section includes appointments that were scheduled to occur 6 months from the date of the Encounter, up to a maximum of 20 appointments. The data comes from all [place] treatment facilities. Appointment Date/Time Appointment Type Appointme nt Facility Name Jul 30, 2024 01:00 PM AMBULATORY - PSYCHIATRY [facility] [place] [facility] Aug 13, 2024 01:00 PM AMBULATORY - PSYCHIATRY [facility] [place] [facility] Aug 19, 2024 02:00 PM AMBULATORY - MEDICINE [facility] [place] [facility] Aug 20, 2024 01:00 PM AMBULATORY - PSYCHIATRY [facility] [place] [facility] Aug 27, 2024 01:00 PM AMBULATORY - PSYCHIATRY [facility] [place] [facility] Sep 10, 2024 01:00 PM AMBULATORY - PSYCHIATRY [facility] [place] [facility] Sep 16, 2024 09:00 AM AMBULATORY - MEDICINE [facility] [place] [facility] Sep 17, 2024 01:00 PM AMBULATORY - PSYCHIATRY [facility] [place] [facility] Sep 24, 2024 11:30 AM AMBULATORY - PSYCHIATRY [facility] [place] [facility] Oct 08, 2024 01:00 PM AMBULATORY - PSYCHIATRY [facility] [place] [facility] October 29, 2024 01:00 PM AMBULATORY - PSYCHIATRY [facility] [place] [facility] November 05, 2024 01:00 PM AMBULATORY - PSYCHIATRY [facility] [place] [facility] November 12, 2024 01:00 PM AMBULATORY - PSYCHIATRY [facility] [place] [facility] November 19, 2024 01:00 PM AMBULATORY - PSYCHIATRY [facility] [place] [facility] Dec 10, 2024 01:00 PM AMBULATORY - PSYCHIATRY [facility] [place] [facility] Dec 17, 2024 01:00 PM AMBULATORY - PSYCHIATRY [facility] [place] [facility] Dec 22, 2024 10:15 AM AMBULATORY - MEDICINE [facility] [place] [facility] Dec 23, 2024 01:30 PM AMBULATORY - MEDICINE [facility] [place] [facility] Dec 31, 2024 01:00 PM AMBULATORY - PSYCHIATRY [facility] [place] [facility] Jan 04, 2025 10:00 AM [facility]ULATORY - MEDICINE [facility] Lab Results: +/- 30 days of the encounter This section includes the Chemistry and Hematology Lab Results on record with [place] for the patient. Radiology Reports and Pathology Reports are provided separately, in subsequent sections. Lab Results This section contains the Chemistry/Hematology Results that were resulted 30 days before or 30 daysafter the date of the Encounter. Date/Time Source Result Type Result - Unit Interpretation Reference Range Specimen Type Comment Aug 19, 2024 02:32 PM [facility] VITAMIN D (25-OH) SERUM Specimen Type: SERUM No comment entered. Ordering Provider: LEANDRA BAEZ V Report Released Date/Time: Aug 19, 2024 02:18 PM Reporting Lab: [address] [address] Performing Lab: [facility] [address] [id number] VITAMIN D (25-OH) 18 ng/mL L 20-50 Aug 19, 2024 02:32 PM [facility] LIVER FUNCTION SERUM Specimen Type: SERUM No comment entered. Ordering Provider: LEANDRA BAEZ V Report Released Date/Time: Aug 19, 2024 02:18 PM Reporting Lab: [facility] [address] [address] Performing Lab: [facility] [address] [address] PROTEIN,TOTAL 7.0 g/dL 6.0-8.3 ALBUMIN 3.7 g/dL 3.5-5.0 ALKALINE PHOSPHATASE 49 U/L 40-150 AST 15 U/L 5-34 ALT 14 U/L BILIRUBIN, TOTAL 0.4 mg/dL 0.2-1.2 Aug 19, 2024 02:32 PM [facility] CBC BLOOD Specimen Type: BLOOD No comment entered. Ordering Provider: LEANDRA BAEZ V Report Released Date/Time: Aug 19, 2024 02:18 PM Reporting Lab: [address] [address] Performing Lab: [address] [address] WBC 6.15 10*3/uL 4.50-11.00 RBC 3.96 10*6/uL 3.93-5.16 HGB 13.2 g/dL 12-15.2 HCT 38.1 36.6-45.6 MCV 96.2 fL 82-99 MCHC 34.6 g/dL 30.8-35.1 PLT 295 10*3/uL 140-360 RDW-CV 11.6 L 12.0-16.0 MCH 33.3 pg H 26.2-32.6 Aug 19, 2024 02:32 PM [facility] BASIC METABOLIC PANEL (non-fasting) SERUM Spe cimen Type: SERUM No comment entered. Ordering Provider: LEANDRA BAEZ V Report Released Date/Time: Aug 19, 2024 02:18 PM Reporting Lab: [address] [address] Performing Lab: [address] [address] UREA NITROGEN 15 mg/dL 7-25 GLUCOSE 84 mg/dL 65-100 SODIUM 136 mmol/L 135-145 POTASSIUM 4.4 mmol/L 3.5-5.0 CHLORIDE 104 mmol/L 100-110 CO2 24 meq/L 20-30 CALCIUM 9.1 mg/dL 8.5-10.2 CREATININE, Serum 0.80 mg/dL 0.50-1.40 eGFR(CKD-EPI 2020) >90 mL/min >60 Social History: Smoking Status (Most current) and Tobacco Use (All prior to encounter date) This section includes the most current, and the historical, smoking and tobacco- related health factors from the [place] facility where the Encounter took place. Current Smoking Status This section includes the most current smoking, or tobacco-related health factor, from the [place] facility where the Encounter took place. Date/Time Current Smoking Status Comment Facil ity May 14, 2024 01:00 PM VA-TOBACCO NEVER U SED CIGARETTES [facility] Tobacco Use History This section includes a history of the smoking, or tobacco-related health factors, that were collected on or before the date of the Encounter. The data comes from the [place] facility where the Encounter took place. Date/Time Smoking Status/Tobacco Use Comment F acility May 14, 2024 01:00 PM VA-TOBACCO NEVER U SED OTHER TYPE [facility] Advance Directives: All historical and current Section Date Range: From patient's date of to the date document was created. This section includes ALL of a patient's completed or amended VA Advance and Rescinded Directives. The entries below indicate that a directive exists for the patient, but an actual copy is not included with this document. The data comes from all [place] facilities. Date Advance Directives Provider Source Mar 25, 2023 ADVANCE DIRECTIVE PETROS MOTLEY [facility] Encounter Notes: All associated encounter notes This section contains the clinical notes associated to the Encounter. Date/Time Encounter Note(s) Provider Source Jul 23, 2024 03:28 PM MENTAL HEALTH NOTE: LOCAL TITLE: CBT DEPRESSION THERAPY NOTE STANDARD TITLE: MENTAL HEALTH NOTE DATE OF NOTE: JUL 23, 2024@15:28 ENTRY DATE: JUL 23, 2024@15:29:02 AUTHOR: ROBERT RODRIGUEZ COSIGNER: URGENCY: STATUS: COMPLETED [facility] Connect ([facility]) Standard Documentation [facility] Clinician Resources Only: E911 (Emergency Call Relay Center): [phone] [facility] Crisis Line - 988 then press #1. DAVID Suicide Coordinator [phone], Ext. [phone]; Back-up Ext. [phone] [place] Police, Kassandra HERNANDEZ [phone] Introduction: Visit is being conducted by [place] [employer]. identified with 2 identifiers: [X] Full Name [X] Date of [ ] VA ID Card Emergency Plan: Parlier confirmed and/or provided the following information in case of emergency or technology failure. PATIENT PHONE - PHONE NUMBER [CELLULAR] - Is patient phone number correct, if not, enter below: 's phone number: JAYLAN ALVAREZ [address], [place], [address] Parlier's present location and address for appointment: see chart Parlier's emergency contact name and phone number: see chart reported that location is private and safe: Yes Informed Consent: informed of the risks and benefits of Telehealth video care. has the right to refuse video services. If refuses video visit, a [id number] visit will be scheduled. verbalized consent for this video visit: Yes provided consent for any other persons present for visit: N/A If yes, who and relationship to patient: Secure visit: Visit was locked for security and privacy:Yes --------- COGNITIVE BEHAVIORAL THERAPY FOR DEPRESSION (CBT-D): MIDDLE PHASE Time in session (in minutes): 60. The length of this appt was necessary in order to attend to evidence-based practice, measurement-based care, safety concerns, and conducting effective and ethical psychotherapy. SESSION NUMBER: 5 DIAGNOSIS: Major Depressive Disorder, Moderate, Recurrent Secondary [...] normal limits. was polite, cooperative, and engaged. Parlier denied suicidal and homicidal ideation, plan, and intent. ASSESSMENT Date Instrument Raw Trans Scale 07/23/2024 12:45 PHQ9 18 PHQ9 07/16/2024 12:34 PHQ9 23 PHQ9 07/09/2024 12:34 PHQ9 23 PHQ9 07/02/2024 12:34 PHQ9 13 PHQ9 06/18/2024 12:38 PHQ9 21 PHQ9 03/18/2023 10:12 PHQ9 10 PHQ9 CHANGE IN PHQ-9 SCORE CHANGES IN ASSESSMENT SCORES FROM EARLIER ADMINISTRATIONS: Reduction in depression this past week. SESSION CONTENT: In this middle phase session of Cognitive Behavioral Therapy (CBT) for depression, the following therapeutic activities were performed: BRIDGE FROM LAST SESSION Therapist inquired about what the Parlier found important or helpful from the last [...] Identified Pleasant or Meaningful Activities Activity Scheduling noticed a pattern of being less active and more depressed mid-week when she is usually around less people. She also noticed that she struggles to engage in pleasurable activities that are not also productive. Parlier identified intermediate beliefs that she must engage in productive activities in order to be successful and grow. She also shared that this results in a pattern of either engaging in productive, high exercise activities or very inactive periods (i.e., sleeping, laying in bed). Lethargy and fatigue continues to present as a barrier to getting out of bed in the mornings. She is addressing this side effect of lexapro with her psychiatrist. 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 Therapist employed the Guided Discovery method when incorporating cognitive and/or behavioral strategies COLLABORATIVE HOMEWORK ASSIGNMENT: The homework assignment for this session was: weekly activity log The homework assignment and goal of the assignment was written down. The therapist inquired about Parlier's understanding of the homework assignment and its rationale. Therapist and Parlier discussed the likelihood that the will do the homework. Specific roadblocks or challenges for doing the homework were discussed. FINAL SUMMARY AND FEEDBACK: Parlier reported that she finds the weekly activity logs helpful. She also started looking through the Pleasant Activities List. PLAN Next session planned for agreed upon date/time of: Fri 1pm [facility], continue CBT-D /es/ Robert Rodriguez PsZahra SEXUAL TRAUMA/WOMEN'S PSYCHOLOGIST Signed: 07/23/2024 15:37 ROBERT RODRIGUEZ [facility] [place] [facility] Jul 23, 2024 12:51 PM MENTAL HEALTH DIAGNOSTIC STUDY NOTE: LOCAL TITLE: MENTAL HEALTH DIAGNOSTIC STUDY STANDARD TITLE: MENTAL HEALTH DIAGNOSTIC STUDY NOTE DATE OF NOTE: JUL 23, 2024@12:51:47 ENTRY DATE: JUL 23, 2024@12:51:47 AUTHOR: ROBERT RODRIGUEZ EXP COSIGNER: URGENCY: STATUS: COMPLETED Assessments were sent to the via text/email. These assessments were completed by JAYLAN ALVAREZ) on their own device on 07/23/2024 12:45:13 PM. PATIENT HEALTH QUESTIONNAIRE-9 (PHQ-9) The patient reported symptoms consistent with a major depressive episode. Patient reported being bothered by the following over the last 2 weeks: 1. Little interest or pleasure: Nearly every day 2. Feeling down, depressed or hopeless: More than half the days 3. Trouble sleeping: Nearly every day 4. Tired, low energy: More than half the days 5. Poor appetite, over-eating: More than half the days 6. Feelings of failure, guilt: More than half the days 7. Trouble concentrating: More than half the days 8. Motor retardation, agitation: More than half the days 9. Thoughts better off /hurting self: Not at all PHQ-9 total score = 18 1-4 = minimal symptoms 5-9= mild symptoms 10-14= moderate symptoms 15-19= moderately severe symptoms 20-27= severe depressive symptoms The patient stated that the depressive symptoms made it very difficult to work, take care of things at home, or get along with others. PHQ-9 Total Score (past 180 days): 07/23/2024 18 07/16/2024 23 07/09/2024 23 07/02/2024 13 06/18/2024 21 PTSD CHECKLIST (PCL-5) - WEEKLY Patient reported being bothered by the following over the past week: 1. Disturbing memories: Quite a bit 2. Disturbing dreams: Quite a bit 3. Re-experiencing events: Quite a bit 4. Cued distress: Moderately 5. Cued physical symptoms: Moderately 6. Avoiding internal reminders: Moderately 7. Avoiding external reminders: Moderately 8. Trouble with recall: Quite a bit 9. Negative beliefs: Quite a bit 10. Blaming self/others: Quite a bit 11. Negative feelings: Moderately 12. Loss of interest: Extremely 13. Feeling distant from others: Quite a bit 14. Feeling numb: Quite a bit 15. Feeling irritable: Quite a bit 16. Reckless behavior: Moderately 17. Being super-alert : Moderately 18. Feeling easily startled: Quite a bit 19. Difficulty concentrating: Extremely 20. Trouble sleeping: Extremely PCL-5 total score = 56 This measure assesses an individual's perception of [...] PCL-5 Weekly Total Score (past 180 days): 07/23/2024 56 07/16/2024 55 07/09/2024 65 07/02/2024 51 06/18/2024 49 /mat/ Robert TatumD. SEXUAL TRAUMA/WOMEN'S PSYCHOLOGIST Signed: 07/23/2024 15:27 ROBERT RODRIGUEZ [facility]
--- OUTSIDE RECORDS SUMMARY | 2024-07-30 09:00 | XMS_ITS | Encounter Summary ---
Author Name [facility] Organization [facility] [place] Address [address] [place] [address] Care Team Providers Care Corrections Unit Supervisor Name Role Phone TRINH FRANCO Primary [...] Patient's Relationship to Policy [employer] ([phone]) PRESCRIPT ION [facility] Jun 07, 2022 [id number] AL[address] PATIENT Selected Encounter This section includes the information on record at [place] for the Encounter. Date/Time Encounter Type Encounter Description Reason Provider Source Jul 30, 2024 01:00 PM PSYTX W PT 45 MINUTES [facility] ICD-10-CM F33.1 Major depressive disorder, recurrent, moderate CAMPONOGARA,SA LIYAH E Encounter Template Text not used by [place] Assessments - Encounter Diagnoses This section includes the primary and secondary diagnoses documented for the Encounter. Date/Time Primary/Secondary Diagnosis Diagnosis Name Provider Source Aug 20, 2024 02:18 PM PRIMARY Major depressive disorder, recurrent, moderate CAMPONOGARA,SA LIYAH [place] [facility] [place] [facility] Aug 20, 2024 02:18 PM SECONDARY Post-traumatic stress disorder, chronic CAMPONOGARA,SA LIYAH [facility] [place] [facility] Plan of Treatment: Future Appointments (+ 6 months) and Future Tests (+/- 45 days) The Plan of Treatment section includes future care activities for the patient from all [place] treatmentfacilities. This section includes future appointments and future orders which are active, pending or scheduled. Future Appointments This section includes appointments that were scheduled to occur 6 months from the date of the Encounter, up to a maximum of 20 appointments. The data comes from all [place] treatment facilities. Appointment Date/Time Appointment Type Appointme nt Facility Name Aug 13, 2024 01:00 PM AMBULATORY - PSYCHIATRY [facility] [place] [facility] Aug 19, 2024 02:00 PM AMBULATORY - MEDICINE [facility] [place] [facility] Aug 20, 2024 01:00 PM AMBULATORY - PSYCHIATRY [facility] [place] [facility] Aug 27, 2024 01:00 PM AMBULATORY - PSYCHIATRY [facility] [place] [facility] Sep 10, 2024 01:00 PM AMBULATORY - PSYCHIATRY [facility] [place] [facility] Sep 16, 2024 09:00 AM AMBULATORY - MEDICINE [facility] [place] [facility] Sep 17, 2024 01:00 PM AMBULATORY - PSYCHIATRY [facility] [place] [facility] Sep 24, 2024 11:30 AM AMBULATORY - PSYCHIATRY [facility] [place] [facility] Oct 08, 2024 01:00 PM AMBULATORY - PSYCHIATRY [facility] [place] [facility] October 29, 2024 01:00 PM AMBULATORY - PSYCHIATRY [facility] [place] [facility] November 05, 2024 01:00 PM AMBULATORY - PSYCHIATRY [facility] [place] [facility] November 12, 2024 01:00 PM AMBULATORY - PSYCHIATRY [facility] [place] [facility] November 19, 2024 01:00 PM AMBULATORY - PSYCHIATRY [facility] [place] [facility] Dec 10, 2024 01:00 PM AMBULATORY - PSYCHIATRY [facility] [place] [facility] Dec 17, 2024 01:00 PM AMBULATORY - PSYCHIATRY [facility] [place] [facility] Dec 22, 2024 10:15 AM AMBULATORY - MEDICINE [facility] [place] [facility] Dec 23, 2024 01:30 PM AMBULATORY - MEDICINE [place] [facility] [place] [facility] Dec 31, 2024 01:00 PM AMBULATORY - PSYCHIATRY [place] [facility] [place] [facility] Jan 04, 2025 10:00 AM AMBULATORY - MEDICINE [facility] Lab Results: +/- 30 days of the encounter This section includes the Chemistry and Hematology Lab Results on record with [place] for the patient. Radiology Reports and Pathology Reports are provided separately, in subsequent sections. Lab Results This section contains the Chemistry/Hematology Results that were resulted 30 days before or 30 daysafter the date of the Encounter. Date/Time Source Result Type Result - Unit Interpretation Reference Range Specimen Type Comment Aug 19, 2024 02:32 PM [facility] VITAMIN D (25-OH) SERUM Specimen Type: SERUM No comment entered. Ordering Provider: LEANDRA BAEZ V Report Released Date/Time: Aug 19, 2024 02:18 PM Reporting [facility] [address] [facility] [phone] Performing Lab: [facility] [address] [facility] [address] VITAMIN D (25-OH) 18 ng/mL L 20-50 Aug 19, 2024 02:32 PM [facility] LIVER FUNCTION SERUM Specimen Type: SERUM No comment entered. Ordering Provider: LEANDRA BAEZ V Report Released Date/Time: Aug 19, 2024 02:18 PM Reporting [facility] [address] [facility] [phone] Performing Lab: [facility] [address] [facility] [address] PROTEIN,TOTAL 7.0 g/dL 6.0-8.3 ALBUMIN 3.7 g/dL 3.5-5.0 ALKALINE PHOSPHATASE 49 U/L 40-150 AST 15 U/L 5-34 ALT 14 U/L BILIRUBIN, TOTAL 0.4 mg/dL 0.2-1.2 Aug 19, 2024 02:[address] [facility] CBC BLOOD Specimen Type: BLOOD No comment entered. Ordering Provider: LEANDRA BAEZ V Report Released Date/Time: Aug 19, 2024 02:18 PM Reporting Lab: [facility] [address] [facility] [address] Performing Lab: [facility] [address] [facility] [address] WBC 6.15 10*3/uL 4.50-11.00 RBC 3.96 10*6/uL 3.93-5.16 HGB 13.2 g/dL 12-15.2 HCT 38.1 36.6-45.6 MCV 96.2 fL 82-99 MCHC 34.6 g/dL 30.8-35.1 PLT 295 10*3/uL 140-360 RDW-CV 11.6 L 12.0-16.0 MCH 33.3 pg H 26.2-32.6 Aug 19, 2024 02:[address] [facility] BASIC METABOLIC PANEL (non-fasting) SERUM Spe cimen Type: SERUM No comment entered. Ordering Provider: LEANDRA BAEZ V Report Released Date/Time: Aug 19, 2024 02:18 PM Reporting Lab: [facility] [address] [facility] [id number] Performing Lab: [address] [address] UREA NITROGEN 15 mg/dL 7-25 GLUCOSE 84 [...] and tobacco- related health factors from the [place] facility where the Encounter took place. Current Smoking Status This section includes the most current smoking, or tobacco-related health factor, from the [place] facility where the Encounter took place. Date/Time Current Smoking Status Comment Facil ity May 14, 2024 01:00 PM VA-TOBACCO NEVER U SED CIGARETTES [facility] Tobacco Use History This section includes a history of the smoking, or tobacco-related health factors, that were collected on or before the date of the Encounter. The data comes from the [place] facility where the Encounter took place. Date/Time Smoking Status/Tobacco Use Comment F acility May 14, 2024 01:00 PM VA-TOBACCO NEVER U SED OTHER TYPE [facility] Advance Directives: All historical and current Section Date Range: From patient's date of to the date document was created. This section includes ALL of a patient's completed or amended [place] Advance and Rescinded Directives. The entries below indicate that a directive exists for the patient, but an actual copy is not included with this document. The data comes from all [place] facilities. Date Advance Directives Provider Source Mar 25, [address] [facility] Encounter Notes: All associated encounter notes This section contains the clinical notes associated to the Encounter. Date/Time Encounter Note(s) Provider Source Jul 30, 2024 03:41 PM MENTAL HEALTH NOTE: LOCAL TITLE: CBT DEPRESSION THERAPY NOTE STANDARD TITLE: MENTAL HEALTH NOTE DATE OF NOTE: JUL 30, 2024@15:41 ENTRY DATE: JUL 30, 2024@15:41:45 AUTHOR: ROBERT RODRIGUEZ EXP COSIGNER: URGENCY: STATUS: COMPLETED [facility] Connect (VVC) Standard Documentation V[facility] Clinician Resources Only: E911 (Emergency Call Relay Center): [phone] National [facility] Crisis Line - 988 then press #1. [facility] Suicide Coordinator [phone], Ext. [phone]; Back-up Ext. [phone] JOHN Police, Kassandra HERNANDEZ [phone] Introduction: Visit is being conducted by [employer]. Hood identified with 2 identifiers: [X] Full Name [X] Date of [ ] VA ID Card Emergency Plan: Hood confirmed and/or provided the following information in case of emergency or technology failure. PATIENT PHONE - PHONE NUMBER [CELLULAR] - Is patient phone number correct, if not, enter below: 's phone number: JAYLAN ALVAREZ [address], [place], [address] 's present location and address for appointment: see chart 's emergency contact name and phone number: see chart reported that location is private and safe: Yes Informed Consent: informed of the risks and benefits of Telehealth video care. has the right to refuse video services. If refuses video visit, a [id number] visit will be scheduled. Hood verbalized consent for this video visit: Yes Hood provided consent for any other persons present for visit: N/A If yes, who and relationship to patient: Secure visit: Visit was locked for security and privacy:Yes --------- COGNITIVE BEHAVIORAL THERAPY FOR DEPRESSION (CBT-D): MIDDLE PHASE Time in session (in minutes): 50. The length of this appt was necessary in order to attend to evidence-based practice, measurement-based care, safety concerns, and conducting effective and ethical psychotherapy. SESSION NUMBER: 6 DIAGNOSIS: Major Depressive Disorder, Moderate, Recurrent Secondary (if applicable): PTSD, Chronic ASSESSMENT Date Instrument Raw Trans Scale 07/30/2024 12:37 PHQ9 18 PHQ9 07/23/2024 12:45 PHQ9 18 PHQ9 07/16/2024 12:34 [...] stable, and consistent with stated mood. She appeared sleepy during today's session. Speech and motor activity fell within normal limits. Nash was polite, cooperative, and engaged. Hood denied suicidal and homicidal ideation, plan, and intent. OTHER RELEVANT ASSESSMENT OBSERVATIONS reported that high levels of sleepiness and fatigue continue to interfere with behavioral activation. The onset of the fatigue suggests it is likely side effect to medication. This provider consulted with Hood's prescriber, Dr. Louie, who advised to request to move up her follow up appointment. SESSION CONTENT: In this middle phase session of Cognitive Behavioral Therapy (CBT) for depression, the following therapeutic activities were performed: BRIDGE FROM LAST SESSION Therapist inquired about what the Hood found important or helpful from the last session and if the Hood had any concerns about the last session. Therapist inquired about the degree to which the homework was completed and what was learned from the homework assessment. PRIORITIZED AGENDA The therapist and collaboratively developed a prioritized agenda. BEHAVIORAL STRATEGIES: The following behavioral strategies were discussed during the session: Identified Pleasant or Meaningful Activities Activity Scheduling Behavioral Activation reported that she is most motivated to do activities that help others or where others are depending on her. She struggled to do tasks that are only for herself due to fatigue and interfering automatic cognitions (i.e., I just want to sleep, it won't matter, the activity won't help me). We discussed triggers for sleepiness including: stress, warmth, being home when her kids are not, returning from dropping the children at school. identified activities that energize her or wake her up: walking in the cold, touching something cold, brief intense exercise, and lights on. She agreed to practice these strategies in circumstances where she is more prone to going back to bed and sleeping during the day. She also identified coping statements: ( I can sleep later, I won't wake up feeling refreshed anyway It's important to me to be productive ) COGNITIVE STRATEGIES: The following cognitive strategies were discussed during the session: Identified Automatic Thoughts Noted and discussed in-session mood shift Used 3-Column Thought Record Monitored automatic thoughts and mood Introduced the 3 column thought record as a way to track thought patterns. We went through several examples. Therapist employed the Guided Discovery method when incorporating cognitive and/or behavioral strategies COLLABORATIVE HOMEWORK ASSIGNMENT: The homework assignment for this session was: thought record, continue activity scheduling The homework assignment and goal of the assignment was written down. The therapist inquired about 's understanding of the homework assignment and its rationale. Therapist and Hood discussed the likelihood that the will do the homework. FINAL SUMMARY AND FEEDBACK: Hood reported that she would like to print out the thought records to work on them when she is upset or depression arises. PLAN Next session planned for agreed upon date/time of: 08/06 at 1pm [facility], continue CBT-D /es/ Robert Rodriguez Psy.D. SEXUAL TRAUMA/WOMEN'S PSYCHOLOGIST Signed: 07/30/2024 15:51 ROBERT RODRIGUEZ [place] [facility] [place] [facility] Jul 30, 2024 12:45 PM MENTAL HEALTH DIAGNOSTIC STUDY NOTE: LOCAL TITLE: MENTAL HEALTH DIAGNOSTIC STUDY STANDARD TITLE: MENTAL HEALTH DIAGNOSTIC STUDY NOTE DATE OF NOTE: JUL 30, 2024@12:45:52 ENTRY DATE: JUL 30, 2024@12:45:52 AUTHOR: ROBERT RODRIGUEZ COSIGNER: URGENCY: STATUS: COMPLETED Assessments were sent to the Hood via text/email. These assessments were completed by JAYLAN ALVAREZ) on their own device on 07/30/2024 12:37:33 PM. PATIENT HEALTH QUESTIONNAIRE-9 (PHQ-9) The patient reported symptoms consistent with a major depressive episode. Patient reported being bothered by the following over the last 2 weeks: 1. Little interest or pleasure: Nearly every day 2. Feeling down, depressed or hopeless: More than half the days 3. Trouble sleeping: More than half the days 4. Tired, low energy: Nearly every day [...] others. PHQ-9 Total Score (past 180 days): 07/30/2024 18 07/23/2024 18 07/16/2024 23 07/09/2024 23 07/02/2024 13 06/18/2024 21 PTSD CHECKLIST (PCL-5) - WEEKLY Patient reported being bothered by the following over the past week: 1. Disturbing memories: Extremely 2. Disturbing dreams: Extremely 3. Re-experiencing events: Quite a bit 4. Cued distress: Quite a bit 5. Cued physical symptoms: Quite a bit 6. Avoiding internal reminders: Quite a bit 7. Avoiding external reminders: Quite a bit 8. Trouble with recall: Quite a bit 9. Negative beliefs: Moderately 10. Blaming self/others: Moderately 11. Negative feelings: Moderately 12. Loss of interest: Extremely 13. Feeling distant from others: Quite a bit 14. Feeling numb: Quite a bit 15. Feeling irritable: Moderately 16. Reckless behavior: Moderately 17. Being super-alert : Quite a bit 18. Feeling easily startled: Quite a bit 19. Difficulty concentrating: Extremely 20. Trouble sleeping: Extremely PCL-5 total score = 60 This measure assesses an individual's perception of [...] PCL-5 Weekly Total Score (past 180 days): 07/30/2024 60 07/23/2024 56 07/16/2024 55 07/09/2024 65 07/02/2024 51 06/18/2024 49 /mat/ Robert Rodriguez Psy.D. SEXUAL TRAUMA/WOMEN'S PSYCHOLOGIST Signed: 07/30/2024 12:50 [facility]
--- OUTSIDE RECORDS SUMMARY | 2024-08-13 09:00 | XMS_ITS | Encounter Summary ---
Author Name [facility] [place] [facility] [place] Address [address] [place] [address] Care Team Providers Care Indian Trader Name Role Phone TRINH FRANCO Primary Care [...] Patient's Relationship to Policy [facility] [employer] ([id number]) [facility] Jun 07, 2022 [id number] AL[address] PATIENT Selected Encounter This section includes the information on record at [place] for the Encounter. Date/Time Encounter Type Encounter Description Reason Provider Source Aug 13, 2024 01:00 PM PSYTX W PT 60 MINUTES [facility] ICD-10-CM F33.1 Major depressive disorder, recurrent, moderate CAMPONOGARA,SA LIYAH E Encounter Template Text not used by [place] Assessments - Encounter Diagnoses This section includes the primary and secondary diagnoses documented for the Encounter. Date/Time Primary/Secondary Diagnosis Diagnosis Name Provider Source Aug 13, 2024 04:22 PM PRIMARY Major depressive disorder, recurrent, moderate CAMPONOGARA,SA LIYAH [facility] Aug 13, 2024 04:22 PM SECONDARY Post-traumatic stress disorder, chronic CAMPONOGARA,SA LIYAH [facility] Plan of Treatment: Future Appointments (+ 6 months) and Future Tests (+/- 45 days) The Plan of Treatment section includes future care activities for the patient from all [place] treatmentfacilities. This section includes future appointments and future orders which are active, pending or scheduled. Future Appointments This section includes appointments that were scheduled to occur 6 months from the date of the Encounter, up to a maximum of 20 appointments. The data comes from all [place] treatment facilities. Appointment Date/Time Appointment Type Appointme nt Facility Name Aug 19, 2024 02:00 PM [facility]ULATORY [facility]ICINE [facility] Aug 20, 2024 01:00 PM AMBULATORY - PS[facility]CHIATRY [facility] Aug 27, 2024 01:00 PM [facility]UL[facility] Sep 10, 2024 01:00 PM AMBULATORY - PS[facility]IATRY [facility] Sep 16, 2024 09:00 AM [facility]ULATORY [facility]ICINE [facility] Sep 17, 2024 01:00 PM AMBULATORY - PS[facility]IATRY [facility] Sep 24, 2024 11:30 AM AMBUL[facility] - [facility]ATRY [facility] Oct 08, 2024 01:00 PM AMBULATORY - PS[facility]IATRY [facility] October 29, 2024 01:00 PM AMBULATORY - PS[facility]AT[facility] November 05, 2024 01:00 PM AMBULATORY - PS[facility]ATRY [facility] November 12, 2024 01:00 PM AMBULATORY - PS[facility]IATRY [facility] November 19, 2024 01:00 PM AMBULATORY - PS[facility]IATRY [facility] Dec 10, 2024 01:00 PM AMBUL[facility] - [facility]AT[facility] Dec 17, 2024 01:00 PM AMBULATORY - PS[facility]IATRY [facility] Dec 22, 2024 10:15 AM [facility]UL[facility]ORY - MEDICINE [facility] Dec 23, 2024 01:30 PM AMBULATORY - MEDICINE [facility] Dec 31, 2024 01:00 PM AMBULATORY - PSYCHIATRY [facility] Jan 04, 2025 10:00 AM AMBULATORY - MEDICINE [facility] Jan 28, 2025 08:00 AM AMBULATORY - MEDICINE [facility] Jan 28, 2025 02:00 PM [facility] Lab Results: +/- 30 days of the encounter This section includes the Chemistry and Hematology Lab Results on record with [place] for the patient. Radiology Reports and Pathology Reports are provided separately, in subsequent sections. Lab Results This section contains the Chemistry/Hematology Results that were resulted 30 days before or 30 daysafter the date of the Encounter. Date/Time Source Result Type Result - Unit Interpretation Reference Range Specimen Type Comment Aug 19, 2024 02:32 PM [facility] LIVER FUNCTION SERUM Specimen Type: SERUM No comment entered. Ordering Provider: LEANDRA BAEZ V Report Released Date/Time: Aug 19, 2024 02:18 PM Reporting Lab: [address] [address] Performing Lab: [address] [address] PROTEIN,TOTAL 7.0 g/dL 6.0-8.3 ALBUMIN 3.7 g/dL 3.5-5.0 ALKALINE PHOSPHATASE 49 U/L 40-150 AST 15 U/L 5-34 ALT 14 U/L BILIRUBIN, TOTAL 0.4 mg/dL 0.2-1.2 Aug 19, 2024 02:32 PM [facility] VITAMIN D (25-OH) SERUM Specimen Type: SERUM No comment entered. Ordering Provider: LEANDRA BAEZ V Report Released Date/Time: Aug 19, 2024 02:18 PM Reporting Lab: [address] [address] Performing Lab: [address] [address] VITAMIN D (25-OH) 18 ng/mL L 20-50 Aug 19, 2024 02:32 PM [facility] CBC BLOOD Specimen Type: BLOOD No comment entered. Ordering Provider: LEANDRA BAEZ V Report Released Date/Time: Aug 19, 2024 02:18 PM Reporting Lab: [facility] [address] [facility] [address] Performing Lab: [address] [address] WBC 6.15 10*3/uL 4.50-11.00 RBC 3.96 10*6/uL 3.93-5.16 HGB 13.2 g/dL 12-15.2 HCT 38.1 36.6-45.6 MCV 96.2 fL 82-99 MCHC 34.6 g/dL 30.8-35.1 PLT 295 10*3/uL 140-360 RDW-CV 11.6 L 12.0-16.0 MCH 33.3 pg H 26.2-32.6 Aug 19, 2024 02:32 PM [facility] BASIC METABOLIC PANEL (non-fasting) SERUM Spe cimen Type: SERUM No comment entered. Ordering Provider: LEANDRA BAEZ V Report Released Date/Time: Aug 19, 2024 02:18 PM Reporting Lab: [address] [address] Performing Lab: [address] [address] UREA NITROGEN 15 mg/dL 7-25 GLUCOSE 84 [...] and tobacco- related health factors from the [place] facility where the Encounter took place. Current Smoking Status This section includes the most current smoking, or tobacco-related health factor, from the [place] facility where the Encounter took place. Date/Time Current Smoking Status Comment Facil ity May 14, 2024 01:00 PM VA-TOBACCO NEVER U SED OTHER TYPE [facility] Tobacco Use History This section includes a history of the smoking, or tobacco-related health factors, that were collected on or before the date of the Encounter. The data comes from the [place] facility where the Encounter took place. Date/Time Smoking Status/Tobacco Use Comment F acility May 14, 2024 01:00 PM VA-TOBACCO NEVER U SED OTHER TYPE [facility] [...] Encounter. Date/Time Encounter Note(s) Provider Source Aug 13, 2024 04:14 PM MENTAL HEALTH NOTE: LOCAL TITLE: CBT DEPRESSION THERAPY NOTE STANDARD TITLE: MENTAL HEALTH NOTE DATE OF NOTE: AUG 13, 2024@16:14 ENTRY DATE: AUG 13, 2024@16:14:44 AUTHOR: ROBERT RODRIGUEZ EXP COSIGNER: URGENCY: STATUS: COMPLETED [facility] ([facility]) Standard Documentation [facility] Clinician Resources Only: E911 (Emergency Call Relay Center): [phone] [facility] Crisis Line - 988 then press #1. DEYA Suicide Coordinator [phone], Ext. [phone]; Back-up Ext. [phone] [place] , Kassandra HERNANDEZ [phone] Introduction: Visit is being conducted by [facility]. identified with 2 identifiers: [X] Full Name [X] Date of [ ] VA ID Card Emergency Plan: confirmed and/or provided the following information in case of emergency or technology failure. PATIENT PHONE - PHONE NUMBER [CELLULAR] - Is patient phone number correct, if not, enter below: Penrose's phone number: JAYLAN ALVAREZ [address] [place], [place], [address] Penrose's present location and address for appointment: see chart Penrose's emergency contact name and phone number: see chart Penrose reported that location is private and safe: Yes Informed Consent: Penrose informed of the risks and benefits of Telehealth video care. Penrose has the right to refuse video services. If refuses video visit, a [id number] visit will be scheduled. Penrose verbalized consent for this video visit: Yes Penrose provided consent for any other persons present [...] conducting effective and ethical psychotherapy. SESSION NUMBER: 7 DIAGNOSIS: Major Depressive Disorder, Moderate, Recurrent Secondary (if applicable): PTSD, Chronic MENTAL STATUS/BEHAVIORAL OBSERVATIONS arrived to the appointment on time and was dressed appropriate to context. Nash was oriented x4, and her thought process was linear, logical, and coherent. She described her mood as depressed and her affect was expressive, stable, and consistent with stated mood. Speech and motor activity fell within normal limits. Penrose was polite, cooperative, and engaged. Penrose denied suicidal and homicidal ideation, plan, and intent. ASSESSMENT Date Instrument Raw Trans Scale 08/13/2024 12:59 PHQ9 14 PHQ9 07/30/2024 12:37 PHQ9 18 PHQ9 07/23/2024 12:45 PHQ9 18 PHQ9 07/16/2024 12:34 PHQ9 23 PHQ9 07/09/2024 12:34 PHQ9 23 PHQ9 07/02/2024 12:34 PHQ9 13 PHQ9 06/18/2024 12:38 PHQ9 21 PHQ9 03/18/2023 10:12 PHQ9 10 PHQ9 SESSION CONTENT: In this middle phase session of Cognitive Behavioral Therapy (CBT) for depression, the following therapeutic activities were performed: BRIDGE FROM LAST SESSION Therapist inquired about what the found important or helpful from the last session and if the Penrose had any concerns about the last session. Therapist inquired about the degree to which the homework was completed and what was learned from the homework assessment. PRIORITIZED AGENDA The therapist and Penrose collaboratively developed a prioritized agenda. BEHAVIORAL STRATEGIES: The following behavioral strategies were discussed during the session: Identified Pleasant or Meaningful Activities Activity Scheduling Behavioral Activation Nash reported a reduction in depression and PTSD symptoms that she attributes to increased activity. 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 Nash continues to report fatigue but noted she pushed through it. She stated that it was difficult to complete non-pleasurable tasks like groceries and laundry and asked her daughter to help. Nash felt content with increasing her activity. She stated that she reminded herself that it does not have to be an intense workout to be worthwhile. She also focused on having good sleep hygeine to improve rest, rather than pushing to stay up late and complete more tasks. COGNITIVE STRATEGIES: The following cognitive strategies were discussed during the session: Identified Automatic Thoughts Used 3-Column Thought Record Modified Dysfunctional Automatic Thoughts Identified cognitive errors Penrose reported that she had automatic thoughts like, Something is wrong with me that I cannot complete everything I need to. She was introduced to cognitive errors and stated that she relates to personalization and over-generalization. plans to review the cognitive distortion list further prior to next session. Therapist employed the Guided Discovery method when incorporating cognitive and/or behavioral strategies COLLABORATIVE HOMEWORK ASSIGNMENT: The homework assignment for this session was: review cognitive distortions, thought record The homework assignment and goal of the assignment was written down. The therapist inquired about Penrose's understanding of the homework assignment and its rationale. Therapist and discussed the likelihood that the will do the homework. Specific roadblocks or challenges for doing the homework were discussed. PLAN Next session planned for agreed upon date/time of: 08/20 at 1pm [facility], continue CBT-D /es/ Robert Camponogara Psy.D. SEXUAL TRAUMA/WOMEN'S PSYCHOLOGIST Signed: 08/13/2024 16:22 ROBERT RODRIGUEZ [facility] Aug 13, 2024 01:01 PM MENTAL HEALTH DIAGNOSTIC STUDY NOTE: LOCAL TITLE: MENTAL HEALTH DIAGNOSTIC STUDY STANDARD TITLE: MENTAL HEALTH DIAGNOSTIC STUDY NOTE DATE OF NOTE: AUG 13, 2024@13:01:51 ENTRY DATE: AUG 13, 2024@13:01:51 AUTHOR: ROBERT RODRIGUEZ EXP COSIGNER: URGENCY: STATUS: COMPLETED Assessments were sent to the Penrose via text/email. These assessments were completed by JAYLAN ALVAREZ) on their own device on 08/13/2024 12:59:45 PM. PATIENT HEALTH QUESTIONNAIRE-9 (PHQ-9) The patient reported some symptoms of depression; symptoms are not consistent with a major depressive episode. Patient reported being bothered by the following over the last 2 weeks: 1. Little interest or pleasure: Several Days 2. Feeling down, depressed or hopeless: Several Days 3. Trouble sleeping: Nearly every day 4. Tired, low energy: More than half the days 5. Poor appetite, over-eating: Several Days 6. Feelings of failure, guilt: More than half the days 7. Trouble concentrating: Several Days 8. Motor retardation, agitation: Nearly every day 9. Thoughts better off /hurting self: Not at all PHQ-9 total score = 14 1-4 = minimal symptoms 5-9= mild symptoms 10-14= moderate symptoms 15-19= moderately severe symptoms 20-27= severe depressive symptoms The patient stated that the depressive symptoms made it very difficult to work, take care of things at home, or get along with others. PHQ-9 Total Score (past 180 days): 08/13/2024 14 07/30/2024 18 07/23/2024 18 07/16/2024 23 07/09/2024 23 07/02/2024 13 06/18/2024 21 PTSD CHECKLIST (PCL-5) - WEEKLY Patient reported being bothered by the following over the past week: 1. Disturbing memories: Moderately 2. Disturbing dreams: Moderately 3. Re-experiencing events: Moderately 4. Cued distress: Moderately 5. Cued physical symptoms: Moderately 6. Avoiding internal reminders: Moderately 7. Avoiding external reminders: Moderately 8. Trouble with recall: Extremely 9. Negative beliefs: Moderately 10. Blaming self/others: Moderately 11. Negative feelings: Moderately 12. Loss of interest: Moderately 13. Feeling distant from others: Moderately 14. Feeling numb: Moderately 15. Feeling irritable: Moderately 16. Reckless behavior: Moderately 17. Being super-alert : Moderately 18. Feeling easily startled: Moderately 19. Difficulty concentrating: Moderately 20. Trouble sleeping: Extremely PCL-5 total score = 44 This measure assesses an individual's perception of [...] PCL-5 Weekly Total Score (past 180 days): 08/13/2024 44 07/30/2024 60 07/23/2024 56 07/16/2024 55 07/09/2024 65 07/02/2024 51 06/18/2024 49 /mat/ Robert Rodriguez Psy.D. SEXUAL TRAUMA/WOMEN'S PSYCHOLOGIST Signed: 08/13/2024 16:14 ROBERT RODRIGUEZ [facility]
--- OUTSIDE RECORDS SUMMARY | 2024-08-19 10:00 | XMS_ITS | Encounter Summary ---
Author Name [facility] [place] Address [address] [place] [address] Care Team Providers Care Technology Education Teacher Name Role Phone TRINH FRANCO Primary Care [...] Patient's Relationship to Policy [employer] ([id number]) PRESCRIPT ION [facility] Jun 07, 2022 [id number] [id number] [phone] Jelani ALVAREZ PATIENT Selected Encounter This section includes the information on record at [place] for the Encounter. Date/Time Encounter Type Encounter Description Reason Provider Source Aug 19, 2024 02:00 PM OFFICE O/P EST LOW 20 MIN RHEUMATOLOGY/ARTH RITIS ICD-10-CM M45.9 Ankylosing spondylitis of unspecified sites in spine LEANDRA BAEZ V Junior Encounter Template Text not used by [place] Assessments - Encounter Diagnoses This section includes the primary and secondary diagnoses documented for the Encounter. Date/Time Primary/Secondary Diagnosis Diagnosis Name Provider Source Sep 20, 2024 01:02 PM PRIMARY Ankylosing spondylitis of unspecified sites in spine [facility] [place] [facility] Sep 20, 2024 01:02 PM SECONDARY Personal history of urinary calculi LEANDRA BAEZ V [place] [facility] [place] [facility] Plan of Treatment: Future Appointments (+ 6 months) and Future Tests (+/- 45 days) The Plan of Treatment section includes future care activities for the patient from all [facility] treatmentfacilities. This section includes future appointments and future orders which are active, pending or scheduled. Future Appointments This section includes appointments that were scheduled to occur 6 months from the date of the Encounter, up to a maximum of 20 appointments. The data comes from all [place] treatment facilities. Appointment Date/Time Appointment Type Appointme nt Facility Name Aug 20, 2024 01:00 PM AMBULATORY - [facility]IATRY [facility] [place] [facility] Aug 27, 2024 01:00 PM AMBULATORY - PS[facility]IATRY [facility] [place] [facility] Sep 10, 2024 01:00 PM AMBULATORY - PS[facility]CHIATRY [facility] [place] [facility] Sep 16, 2024 09:00 AM AMBULATORY - MEDICINE [facility] [place] [facility] Sep 17, 2024 01:00 PM AMBULATORY - PSYCHIATRY [facility] [place] [facility] Sep 24, 2024 11:30 AM AMBULATORY - PS[facility]IATRY [facility] [place] [facility] Oct 08, 2024 01:00 PM AMBULATORY - PS[facility]CHIATRY [facility] [place] [facility] October 29, 2024 01:00 PM AMBULATORY - PS[facility]CHIATRY [facility] [place] [facility] November 05, 2024 01:00 PM AMBULATORY - PSYCHIATRY [facility] [place] [facility] November 12, 2024 01:00 PM AMBULATORY - PSYCHIATRY [facility] [place] [facility] November 19, 2024 01:00 PM AMBULATORY - PSYCHIATRY [facility] [place] [facility] Dec 10, 2024 01:00 PM AMBULATORY - PSYCHIATRY [facility] [place] [facility] Dec 17, 2024 01:00 PM AMBULATORY - PSYCHIATRY [facility] [place] [facility] Dec 22, 2024 10:15 AM AMBULATORY - MEDICINE [facility] [place] [facility] Dec 23, 2024 01:30 PM AMBULATORY - MEDICINE [facility] [place] [facility] Dec 31, 2024 01:00 PM AMBULATORY - PSYCHIATRY [facility] [place] [facility] Jan 04, 2025 10:00 AM AM[facility]ULATORY [facility] MEDIC[facility] [place] [facility] Jan 28, 2025 08:00 AM AM[facility]ULATORY [facility] MEDICINE [facility] [place] [facility] Jan 28, 2025 02:00 PM AMBULATORY - PSYCHIATRY [facility] [place] [facility] Jan 28, 2025 02:00 PM [facility] Lab Results: +/- 30 days of the [...] Type Comment Aug 19, 2024 02:32 PM [facility] LIVER FUNCTION SERUM Specimen Type: SERUM No comment entered. Ordering Provider: LEANDRA BAEZ V Report Released Date/Time: Aug 19, 2024 02:18 PM Reporting Lab: [address] [address] Performing Lab: [address] [address] PROTEIN,TOTAL 7.0 g/dL 6.0-8.3 ALBUMIN 3.7 g/dL 3.5-5.0 ALKALINE PHOSPHATASE 49 U/L 40-150 AST 15 U/L 5-34 ALT 14 U/L BILIRUBIN, TOTAL 0.4 mg/dL 0.2-1.2 Aug 19, 2024 02:32 PM [facility] VITAMIN D (25-OH) SERUM Specimen Type: SERUM No comment entered. Ordering Provider: LEANDRA BAEZ V Report Released Date/Time: Aug 19, 2024 02:18 PM Reporting Lab: [address] [address] Performing Lab: [address] [address] VITAMIN D (25-OH) 18 ng/mL L 20-50 Aug 19, 2024 02:32 PM [facility] CBC BLOOD Specimen Type: BLOOD No comment entered. Ordering Provider: LEANDRA BAEZ V Report Released Date/Time: Aug 19, 2024 02:18 PM Reporting Lab: [address] [address] Performing Lab: [address] [address] WBC 6.15 10*3/uL 4.50-11.00 RBC 3.96 10*6/uL 3.93-5.16 HGB 13.2 g/dL 12-15.2 HCT 38.1 36.6-45.6 MCV 96.2 fL 82-99 MCHC 34.6 g/dL 30.8-35.1 PLT 295 10*3/uL 140-360 RDW-CV 11.6 L 12.0-16.0 MCH 33.3 pg H 26.2-32.6 Aug 19, 2024 02:32 PM [facility] BASIC METABOLIC PANEL (non-fasting) SERUM Spe cimen Type: SERUM No comment entered. Ordering Provider: LEANDRA BAEZ V Report Released Date/Time: Aug 19, 2024 02:18 PM Reporting Lab: [address] [address] Performing Lab: [address] [address] UREA NITROGEN 15 mg/dL 7-25 GLUCOSE 84 [...] Pain Height Weight Body Mass Index Source Aug 19, 2024 02:08 PM 96.9 64 133/91 16 99 7 146 28 [facility] Social History: Smoking Status (Most current) and Tobacco Use (All prior to encounter date) This section includes the most current, and the historical, smoking and tobacco- related health factors from the [place] facility where the Encounter took place. Current Smoking Status This section includes the most current smoking, or tobacco-related health factor, from the [place] facility where the Encounter took place. Date/Time Current Smoking Status Comment Facil ity May 14, 2024 01:00 PM VA-TOBACCO NEVER U SED OTHER TYPE [facility] Tobacco Use History This section includes a history of the smoking, or tobacco-related health factors, that were collected on or before the date of the Encounter. The data comes from the [place] facility where the Encounter took place. Date/Time Smoking Status/Tobacco Use Comment F acility May 14, 2024 01:00 PM VA-TOBACCO NEVER U SED OTHER TYPE [facility] Advance Directives: All historical and [...] Source Mar 25, 2023 [facility]ANCE [facility]IVE [facility] Encounter Notes: All associated encounter notes This section contains the clinical notes associated to the Encounter. Date/Time Encounter Note(s) Provider Source Aug 19, 2024 02:20 PM RHEUMATOLOGY NOTE: LOCAL TITLE: RHEUMATOLOGY PROGRESS NOTE STANDARD TITLE: RHEUMATOLOGY NOTE DATE OF NOTE: AUG 19, 2024@14:20 ENTRY DATE: AUG 19, 2024@14:21:08 AUTHOR: LEANDRA BAEZ COSIGNER: URGENCY: STATUS: COMPLETED 43 yo with spondyloartrhopathy on etanercept. Still filling from outside. She has had a couple of canker sores - inside cheek - resolved. Had EGD Colon in APR - told ulcer in stomach - started on pantoprazole - no mention of inflam bowel disease. no side effects from etandercept - no injection site reactiions, no fever or infections. exam BP 132/90 by me HEENT no mm lesions, sclera/conjuctiva clear, hair is thin no focal alopecia chest CTA CV reg no edema abd benign msk no synovitis or effusion. no achilles thickening, DATA Clinical History: Pt with hx of on etanercept. Reports foot swelling also hx of kidney stones Report Status: Verified Date Reported: MAY 10, 2024 Date Verified: MAY 10, 2024 Marine Engineer Cpvec E-Sig:/ES/ANTONELLA BEARD JR Report: Study: AP, [place], [...] is identified. Impression: Normal bilateral hand radiographs. Foot films Clinical History: Pt with hx of on etanercept. Reports hand swelling Report Status: Verified Date Reported: MAY 10, 2024 Date Verified: MAY 10, 2024 Marine Engineer Cpvec E-Sig:/ES/ANTONELLA BEARD JR Report: Study: Weight-bearing AP, [...] with no arthropathy identified, as described above. (Case [id number] COMPLETE) SPINE LUMBOSACRAL MIN 4 VIEWS (RAD Detailed) CPT:31630 Reason for Study: Evaluate for evid of spondyloarthropathy Clinical History: Pt with hx of on etanercept Report Status: Verified Date Reported: MAY 10, 2024 Date Verified: MAY 10, 2024 Marine Engineer Cpvec E-Sig:/ES/ANTONELLA BEARD JR Report: Study: AP, left [...] No focal abnormality identified, as described above. Imp/plan - Spondyloarthropathy - well controlled on Etanercept RTC 3-4 months; message or call with any issues - tolerating without side effects. Wrote prescription from here - reminded her she can reach out in [facility] with med or other issues. labs today The following VA and Non-VA medications were reconciled with the patient: Active Outpatient Medications (including Supplies): CETIRIZINE HCL 10MG TAB TAKE ONE TABLET BY MOUTH ONCE ACTIVE (S) DAILY Indication: FOR ALLERGIES CHOLECALCIF 50MCG (D3-2,000UNIT) TAB TAKE ONE TABLET BY ACTIVE (S) MOUTH ONCE DAILY FOR VITAMIN SUPPLEMENTATION Indication: FOR VITAMIN D DEFICIENCY CREON 24,000UNIT EC CAP TAKE 2 CAPSULES BY MOUTH TWICE ACTIVE (S) DAILY ESCITALOPRAM OXALATE 10MG TAB TAKE ONE AND ONE-HALF ACTIVE (S) TABLETS BY MOUTH EVERY EVENING FOR MOOD/DEPRESSION Indication: FOR REPEATED EPISODES OF ANXIETY ETANERCEPT 50MG/ML INJ SURECLICK INJECT 50MG PENDING SUBCUTANEOUSLY Q FRIDAY Indication: SPONDYLOARTHROPATHY FEXOFENADINE HCL 180MG TAB TAKE ONE TABLET BY MOUTH ONCE ACTIVE (S) DAILY Indication: FOR ALLERGIES VIENVA TAB 28 TAKE 1 TABLET BY MOUTH ONCE DAILY FOR REYNA ACTIVE MENOPAUSE HORMONE TREATMENT Indication: FOR REYNA MENOPAUSE HORMONE TREATMENT Non-VA PANTOPRAZOLE NA 20MG EC TAB 20MG BY MOUTH EVERY ACTIVE MORNING 30 MINUTES BEFORE BREAKFAST Indication: Ulcer /es/ LEANDRA BAEZ STAFF PHYSICIAN Signed: 09/20/2024 13:02 LEANDRA BAEZ V [place] [facility]
--- OUTSIDE RECORDS SUMMARY | 2024-08-20 09:00 | XMS_ITS | Encounter Summary ---
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 Date/Time Encounter Type Encounter Description Reason Provider Source Aug 20, 2024 01:00 PM PSYTX W PT 45 MINUTES [facility] - IND ICD-10-CM F33.1 Major depressive disorder, recurrent, moderate CAMPONOGARA,SA LIYAH E Encounter Template Text not used by [place] Assessments - Encounter Diagnoses This section includes the primary and secondary diagnoses documented for the Encounter. Date/Time Primary/Secondary Diagnosis Diagnosis Name Provider Source Aug 20, 2024 04:02 PM PRIMARY Major depressive disorder, recurrent, moderate CAMPONOGARA,SA LIYAH [place] [facility] [place] [facility] Aug 20, 2024 04:02 PM SECONDARY Post-traumatic stress disorder, chronic CAMPONOGARA,SA LIYAH [facility] [place] [facility] Plan of Treatment: Future Appointments (+ 6 months) and Future Tests (+/- 45 days) The Plan of Treatment section includes future care activities for the patient from all [place] treatmentfacilities. This section includes future appointments and future orders which are active, pending or scheduled. Future Appointments This section includes appointments that were scheduled to occur 6 months from the date of the Encounter, up to a maximum of 20 appointments. The data comes from all [place] treatment facilities. Appointment Date/Time Appointment Type Appointme nt Facility Name Aug 27, 2024 01:00 PM AMBULATORY - PSYCHIATRY [facility] [place] [facility] Sep 10, 2024 01:00 PM AMBULATORY - PSYCHIATRY [facility] [place] [facility] Sep 16, 2024 09:00 AM AMBULATORY - MEDICINE [facility] [place] [facility] Sep 17, 2024 01:00 PM AMBULATORY - PSYCHIATRY [facility] [place] [facility] Sep 24, 2024 11:30 AM AMBULATORY - PSYCHIATRY [facility] [place] [facility] Oct 08, 2024 01:00 PM AMBULATORY - PSYCHIATRY [facility] [place] [facility] October 29, 2024 01:00 PM AMBULATORY - PSYCHIATRY [facility] [place] [facility] November 05, 2024 01:00 PM AMBULATORY - PSYCHIATRY [facility] [place] [facility] November 12, 2024 01:00 PM AMBULATORY - PSYCHIATRY [facility] [place] [facility] November 19, 2024 01:00 PM AMBULATORY - PSYCHIATRY [facility] [place] [facility] Dec 10, 2024 01:00 PM AMBULATORY - PSYCHIATRY [facility] [place] [facility] Dec 17, 2024 01:00 PM AMBULATORY - PSYCHIATRY [facility] [place] [facility] Dec 22, 2024 10:15 AM AMBULATORY - MEDICINE [facility] [place] [facility] Dec 23, 2024 01:30 PM AMBULATORY - MEDICINE [facility] [place] [facility] Dec 31, 2024 01:00 PM AMBULATORY - PSYCHIATRY [facility] [place] [facility] Jan 04, 2025 10:00 AM AMBULATORY - MEDICINE [place] [facility] [place] [facility] Jan 28, 2025 08:00 AM AMBULATORY - MEDICINE [facility] [place] [facility] Jan 28, 2025 02:00 PM AMBULATORY - PSYCHIATRY [facility] [place] [facility] Jan 28, 2025 02:00 PM AM[facility]ULATORY - [facility]RY [place] [facility] Jan 31, 2025 03:00 PM AMBULATORY - [facility]IATRY [place] [facility] Lab Results: +/- 30 days of [...] Type Comment Aug 19, 2024 02:32 PM [facility] LIVER FUNCTION SERUM Specimen Type: SERUM No comment entered. Ordering Provider: LEANDRA BAEZ V Report Released Date/Time: Aug 19, 2024 02:18 PM Reporting Lab: [address] [address] Performing Lab: [address] [address] PROTEIN,TOTAL 7.0 g/dL 6.0-8.3 ALBUMIN 3.7 g/dL 3.5-5.0 ALKALINE PHOSPHATASE 49 U/L 40-150 AST 15 U/L 5-34 ALT 14 U/L BILIRUBIN, TOTAL 0.4 mg/dL 0.2-1.2 Aug 19, 2024 02:32 PM [facility] VITAMIN D (25-OH) SERUM Specimen Type: SERUM No comment entered. Ordering Provider: LEANDRA BAEZ V Report Released Date/Time: Aug 19, 2024 02:18 PM Reporting Lab: [address] [address] Performing Lab: [address] [address] VITAMIN D (25-OH) 18 ng/mL L 20-50 Aug 19, 2024 02:32 PM [facility] CBC BLOOD Specimen Type: BLOOD No comment entered. Ordering Provider: LEANDRA BAEZ V Report Released Date/Time: Aug 19, 2024 02:18 PM Reporting Lab: [address] [address] Performing Lab: [address] [address] WBC 6.15 10*3/uL 4.50-11.00 RBC 3.96 10*6/uL 3.93-5.16 HGB 13.2 g/dL 12-15.2 HCT 38.1 36.6-45.6 MCV 96.2 fL 82-99 MCHC 34.6 g/dL 30.8-35.1 PLT 295 10*3/uL 140-360 RDW-CV 11.6 L 12.0-16.0 MCH 33.3 pg H 26.2-32.6 Aug 19, 2024 02:32 PM [facility] BASIC METABOLIC PANEL (non-fasting) SERUM Spe cimen Type: SERUM No comment entered. Ordering Provider: LEANDRA BAEZ V Report Released Date/Time: Aug 19, 2024 02:18 PM Reporting Lab: [address] [address] Performing Lab: [address] [address] UREA NITROGEN 15 mg/dL 7-25 GLUCOSE 84 [...] and tobacco- related health factors from the [place] facility where the Encounter took place. Current Smoking Status This section includes the most current smoking, or tobacco-related health factor, from the [place] facility where the Encounter took place. Date/Time Current Smoking Status Comment Facil ity May 14, 2024 01:00 PM VA-TOBACCO NEVER U SED OTHER TYPE [facility] Tobacco Use History This section includes a history of the smoking, or tobacco-related health factors, that were collected on or before the date of the Encounter. The data comes from the [place] facility where the Encounter took place. Date/Time Smoking Status/Tobacco Use Comment F acility May 14, 2024 01:00 PM VA-TOBACCO NEVER U SED OTHER TYPE [facility] Advance Directives: All historical and [...] 25, 2023 ADVANCE DIRECTIVE PETROS [facility] Encounter Notes: All associated encounter notes This section contains the clinical notes associated to the Encounter. Date/Time Encounter Note(s) Provider Source Aug 20, 2024 03:55 PM MENTAL HEALTH NOTE: LOCAL TITLE: CBT DEPRESSION THERAPY NOTE STANDARD TITLE: MENTAL HEALTH NOTE DATE OF NOTE: AUG 20, 2024@15:55 ENTRY DATE: AUG 20, 2024@15:55:59 AUTHOR: ROBERT RODRIGUEZ EXP COSIGNER: URGENCY: STATUS: COMPLETED [facility] ([facility]VC) Standard Documentation V[facility] Clinician Resources Only: E911 (Emergency Call Relay Center): [phone] National Veterans Crisis Line - 988 then press #1. DAVID Suicide Coordinator [phone], Ext. [phone]; Back-up Ext. [phone] [place] Police, Kassandra HERNANDEZ [phone] Introduction: Visit is being conducted by [facility] [employer] [facility]. identified with 2 identifiers: [X] Full Name [X] Date of [ ] VA ID Card Emergency Plan: confirmed and/or provided the following information in case of emergency or technology failure. PATIENT PHONE - PHONE NUMBER [CELLULAR] - Is patient phone number correct, if not, enter below: [place]'s phone number: JAYLAN ALVAREZ [address], [place], [address] [place]'s present location and address for appointment: see chart 's emergency contact name and phone number: see chart reported that location is private and safe: Yes Informed Consent: informed of the risks and benefits of Telehealth video care. [place] has the right to refuse video services. If refuses video visit, a [facility] visit will be scheduled. verbalized consent for this video visit: Yes [place] provided consent for any other persons present for visit: N/A If yes, who and relationship to patient: Secure visit: Visit was locked for security and privacy:Yes -------- COGNITIVE BEHAVIORAL THERAPY FOR DEPRESSION (CBT-D): MIDDLE PHASE Time in session (in minutes): 45. The length of this appt was necessary in order to attend to evidence-based practice, measurement-based care, safety concerns, and conducting effective and ethical psychotherapy. SESSION NUMBER: 8 DIAGNOSIS: Major Depressive Disorder, Moderate, Recurrent Secondary [...] and motor activity fell within normal limits. [place] was polite, cooperative, and engaged. denied suicidal and homicidal ideation, plan, and intent. ASSESSMENT Date Instrument Raw Trans Scale 08/20/2024 12:42 PHQ9 24 PHQ9 08/13/2024 12:59 PHQ9 14 PHQ9 07/30/2024 12:37 PHQ9 18 PHQ9 07/23/2024 12:45 PHQ9 18 PHQ9 07/16/2024 12:34 PHQ9 23 PHQ9 07/09/2024 12:34 PHQ9 23 PHQ9 07/02/2024 12:34 PHQ9 13 PHQ9 06/18/2024 12:38 PHQ9 21 PHQ9 03/18/2023 10:12 PHQ9 10 PHQ9 CHANGE IN PHQ-9 SCORE CHANGES IN ASSESSMENT SCORES FROM EARLIER ADMINISTRATIONS: Nash reported a significant increase in depression and PTSD symptoms. She stated that there were a number of events that upset her and led her to disengage in activities. She reported a significant decrease in physical and social activity. We discussed the role of automatic cognitions in magnifying depression. SESSION CONTENT: In this middle phase session of Cognitive Behavioral Therapy (CBT) for depression, the following therapeutic activities were performed: BRIDGE FROM LAST SESSION Therapist inquired about what the [place] found important or helpful from the last session and if the had any concerns about the last session. Therapist inquired about the degree to which the homework was completed and what was learned from the homework assessment. PRIORITIZED AGENDA The therapist and collaboratively developed a prioritized agenda. BEHAVIORAL STRATEGIES: The following behavioral strategies were discussed during the session: Activity Scheduling We briefly reviewed the role of behavioral inactivity in maintaining depression. She recognized her past experience of reduced depression on weeks she is more physically active. We discussed the connection between thoughts and behaviors, noting how automatic thoughts directly contribute to reduced activity. COGNITIVE STRATEGIES: The following cognitive strategies were discussed during the session: Identified Core Beliefs/Intermediate Beliefs/Compensatory Strategies Completed conceptualization diagram Used Downward Arrow technique Nash described several events this week that led her to feel let down and depressed. Each incident resulted in automatic beliefs like, I am not a priority, I am stuck here and can't move forward . Nash connected these automatic thoughts, and previously discussed automatic thoughts, to the core belief, Something is wrong with me. She reported that she has had few people in her life prioritize her emotional needs. Nash has experienced a pattern of interpersonal disappointment where her needs are not prioritized and she is not fully accepted. Therapist employed the Guided Discovery method when incorporating cognitive and/or behavioral strategies COLLABORATIVE HOMEWORK ASSIGNMENT: The homework assignment for this session was: 5 column thought log The homework assignment and goal of the assignment was written down. The therapist inquired about 's understanding of the homework assignment and its rationale. Therapist and [place] discussed the likelihood that the [place] will do the homework. PLAN Next session planned for agreed upon date/time of: Fri 1pm 50 min VVC, continue CBT-D /es/ Robert Rodriguez Psy.D. SEXUAL TRAUMA/WOMEN'S PSYCHOLOGIST Signed: 08/20/2024 16:07 ROBERT RODRIGUEZ [facility] [place] [facility] Aug 20, 2024 12:45 PM MENTAL HEALTH DIAGNOSTIC STUDY NOTE: LOCAL TITLE: MENTAL HEALTH DIAGNOSTIC STUDY STANDARD TITLE: MENTAL HEALTH DIAGNOSTIC STUDY NOTE DATE OF NOTE: AUG 20, 2024@12:45:20 ENTRY DATE: AUG 20, 2024@12:45:20 AUTHOR: ROBERT RODRIGUEZ EXP COSIGNER: URGENCY: STATUS: COMPLETED Assessments were sent to the [place] via text/email. These assessments were completed by JAYLAN ALVAREZ) on their own device on 08/20/2024 12:42:49 PM. PATIENT HEALTH QUESTIONNAIRE-9 (PHQ-9) The patient [...] Not at all PHQ-9 total score = 24 1-4 = minimal symptoms 5-9= mild symptoms 10-14= moderate symptoms 15-19= moderately severe symptoms 20-27= severe depressive symptoms The patient stated that the depressive symptoms made it extremely difficult to work, take care of things at home, or get along with others. PHQ-9 Total Score (past 180 days): 08/20/2024 24 08/13/2024 14 07/30/2024 18 07/23/2024 18 07/16/2024 23 07/09/2024 23 07/02/2024 13 06/18/2024 21 PTSD CHECKLIST (PCL-5) - WEEKLY Patient reported being bothered by the following over the past week: 1. Disturbing memories: Quite a bit 2. Disturbing dreams: Quite a bit 3. Re-experiencing events: Quite a bit 4. Cued distress: Extremely 5. Cued physical symptoms: Extremely 6. Avoiding internal reminders: Extremely 7. Avoiding external reminders: Extremely 8. Trouble with recall: Extremely 9. Negative beliefs: Extremely 10. Blaming self/others: Quite a bit 11. Negative feelings: Extremely 12. Loss of interest: Extremely 13. Feeling distant from others: Extremely 14. Feeling numb: Extremely 15. Feeling irritable: Extremely 16. Reckless behavior: Moderately 17. Being super-alert : Extremely 18. Feeling easily startled: Extremely 19. Difficulty concentrating: Extremely 20. Trouble sleeping: Extremely PCL-5 total score = 74 This measure assesses an individual's perception of [...] PCL-5 Weekly Total Score (past 180 days): 08/20/2024 74 08/13/2024 44 07/30/2024 60 07/23/2024 56 07/16/2024 55 07/09/2024 65 07/02/2024 51 06/18/2024 49 /mat/ Robert Rodriguez Psy.D. SEXUAL TRAUMA/WOMEN'S PSYCHOLOGIST Signed: 08/20/2024 14:51 ROBERT RODRIGUEZ [facility]
--- OUTSIDE RECORDS SUMMARY | 2024-08-27 09:00 | XMS_ITS | Encounter Summary ---
Author Name [facility] [facility] [place] Address [address] [place] [address] Care Team Providers Care Fleet Coordinator Name Role Phone TRINH FRANCO Primary [...] Patient's Relationship to Policy [employer] ([id number]) PRESCRIPT ION [facility] Jun 07, 2022 [id number] Jelani ALVAREZ PATIENT Selected Encounter This section includes the information on record at [place] for the Encounter. Date/Time Encounter Type Encounter Description Reason Provider Source Aug 27, 2024 01:00 PM PSYTX W PT 45 MINUTES [facility] - IND ICD-10-CM F43.12 Post-traumatic stress disorder, chronic CAMPONOGARA,SA LIYAH E Encounter Template Text not used by [place] Assessments - Encounter Diagnoses This section includes the primary and secondary diagnoses documented for the Encounter. Date/Time Primary/Secondary Diagnosis Diagnosis Name Provider Source Aug 27, 2024 03:29 PM PRIMARY Post-traumatic stress disorder, chronic CAMPONOGARA,SA LIYAH [facility] [place] [facility] Aug 27, 2024 03:29 PM SECONDARY Major depressive disorder, recurrent, moderate CAMPONOGARA,SA LIYAH [facility] [place] [facility] Plan of Treatment: Future Appointments (+ 6 months) and Future Tests (+/- 45 days) The Plan of Treatment section includes future care activities for the patient from all [place] treatmentfacilities. This section includes future appointments and future orders which are active, pending or scheduled. Future Appointments This section includes appointments that were scheduled to occur 6 months from the date of the Encounter, up to a maximum of 20 appointments. The data comes from all [place] treatment facilities. Appointment Date/Time Appointment Type Appointme nt Facility Name Sep 10, 2024 01:00 PM AMBULATORY - [facility]IATRY [facility] [place] [facility] Sep 16, 2024 09:00 AM AMBULATORY [facility] MEDICINE [facility] [place] [facility] Sep 17, 2024 01:00 PM AMBULATORY - PS[facility]IATRY [facility] [place] [facility] Sep 24, 2024 11:30 AM AMBULATORY - [facility]IATRY [facility] [place] [facility] Oct 08, 2024 01:00 PM AMBULATORY - [facility]IATRY [facility] [place] [facility] October 29, 2024 01:00 PM AMBULATORY - [facility]IATRY [facility] [place] [facility] November 05, 2024 01:00 PM AMBULATORY - PS[facility]IATRY [facility] [place] [facility] November 12, 2024 01:00 PM AMBULATORY - PS[facility]IATRY [facility] [place] [facility] November 19, 2024 01:00 PM AMBULATORY - PS[facility]IATRY [facility] [place] [facility] Dec 10, 2024 01:00 PM AM[facility]UL[facility]ORY - [facility]ATRY [facility] [place] [facility] Dec 17, 2024 01:00 PM AMBULATORY - [facility]IATRY [facility] [place] [facility] Dec 22, 2024 10:15 AM AM[facility]UL[facility]ORY [facility] MEDICINE [facility] [place] [facility] Dec 23, 2024 01:30 PM AM[facility]UL[facility]ORY [facility] MEDICINE [facility] [place] [facility] Dec 31, 2024 01:00 PM AMBULATORY - PS[facility]CHIATRY [facility] [place] [facility] Jan 04, 2025 10:00 AM AM[facility]ULATORY [facility]ICINE [facility] [place] [facility] Jan 28, 2025 08:00 AM [facility]UL[facility]ORY [facility] MEDICINE [facility] [place] [facility] Jan 28, 2025 02:00 PM AMBULATORY [facility] PS[facility]IATRY [facility] [place] [facility] Jan 28, 2025 02:00 PM [facility] Jan 31, 2025 03:00 PM [facility]ATRY [facility] [place] [facility] Feb 03, 2025 08:00 AM [facility] Lab Results: +/- 30 days of the encounter This section includes the Chemistry and Hematology Lab Results on record with [place] for the patient. Radiology Reports and Pathology Reports are provided separately, in subsequent sections. Lab Results This section contains the Chemistry/Hematology Results that were resulted 30 days before or 30 daysafter the date of the Encounter. Date/Time Source Result Type Result - Unit Interpretation Reference Range Specimen Type Comment Aug 19, 2024 02:32 PM [facility] LIVER FUNCTION SERUM Specimen Type: SERUM No comment entered. Ordering Provider: LEANDRA BAEZ V Report Released Date/Time: Aug 19, 2024 02:18 PM Reporting Lab: [address] [id number] Performing Lab: [address] [address] PROTEIN,TOTAL 7.0 g/dL 6.0-8.3 ALBUMIN 3.7 g/dL 3.5-5.0 ALKALINE PHOSPHATASE 49 U/L 40-150 AST 15 U/L 5-34 ALT 14 U/L BILIRUBIN, TOTAL 0.4 mg/dL 0.2-1.2 Aug 19, 2024 02:32 PM [facility] VITAMIN D (25-OH) SERUM Specimen Type: SERUM No comment entered. Ordering Provider: LEANDRA BAEZ V Report Released Date/Time: Aug 19, 2024 02:18 PM Reporting Lab: [facility] [address] [facility] [address] Performing Lab: [address] [address] VITAMIN D (25-OH) 18 ng/mL L 20-50 Aug 19, 2024 02:32 PM [facility] CBC BLOOD Specimen Type: BLOOD No comment entered. Ordering Provider: LEANDRA BAEZ V Report Released Date/Time: Aug 19, 2024 02:18 PM Reporting Lab: [facility] [address] [facility] [address] Performing Lab: [address] [address] WBC 6.15 10*3/uL 4.50-11.00 RBC 3.96 10*6/uL 3.93-5.16 HGB 13.2 g/dL 12-15.2 HCT 38.1 36.6-45.6 MCV 96.2 fL 82-99 MCHC 34.6 g/dL 30.8-35.1 PLT 295 10*3/uL 140-360 RDW-CV 11.6 L 12.0-16.0 MCH 33.3 pg H 26.2-32.6 Aug 19, 2024 02:32 PM [facility] BASIC METABOLIC PANEL (non-fasting) SERUM Spe cimen Type: SERUM No comment entered. Ordering Provider: LEANDRA BAEZ V Report Released Date/Time: Aug 19, 2024 02:18 PM Reporting Lab: [address] [address] Performing Lab: [address] [address] UREA NITROGEN 15 mg/dL 7-25 GLUCOSE 84 [...] and tobacco- related health factors from the [place] facility where the Encounter took place. Current Smoking Status This section includes the most current smoking, or tobacco-related health factor, from the [place] facility where the Encounter took place. Date/Time Current Smoking Status Comment Facil ity May 14, 2024 01:00 PM VA-TOBACCO NEVER U SED OTHER TYPE [facility] Tobacco Use History This section includes a history of the smoking, or tobacco-related health factors, that were collected on or before the date of the Encounter. The data comes from the [place] facility where the Encounter took place. Date/Time Smoking Status/Tobacco Use Comment F acility May 14, 2024 01:00 PM VA-TOBACCO NEVER U SED OTHER TYPE [facility] Advance Directives: All historical and current Section Date Range: From patient's date of to the date document was created. This section includes ALL of a patient's completed or amended [place] Advance and Rescinded Directives. The entries below indicate that a directive exists for the patient, but an actual copy is not included with this document. The data comes from all [place] facilities. Date Advance Directives Provider Source Mar 25, 2023 ADVANCE DIRECTIVE PETROS MOTLEY [facility] Encounter Notes: All associated encounter notes This section contains the clinical notes associated to the Encounter. Date/Time Encounter Note(s) Provider Source Aug 27, 2024 03:23 PM MENTAL HEALTH NOTE: LOCAL TITLE: CBT DEPRESSION THERAPY NOTE STANDARD TITLE: MENTAL HEALTH NOTE DATE OF NOTE: AUG 27, 2024@15:23 ENTRY DATE: AUG 27, 2024@15:23:06 AUTHOR: AZALEA RODRIGUEZ EXP COSIGNER: URGENCY: STATUS: COMPLETED [facility] ([facility]) Standard Documentation [facility] Clinician Resources Only: E911 (Emergency Call Relay Center): [phone] [facility] Crisis Line - 988 then press #1. DEYA Suicide Coordinator [phone], Ext. [phone]; Back-up Ext. [phone] [facility] [employer], Kassandra HERNANDEZ [phone] Introduction: Visit is being conducted by [facility]. identified with 2 identifiers: [X] Full Name [X] Date of [ ] [facility] ID Card Emergency Plan: confirmed and/or provided the following information in case of emergency or technology failure. PATIENT PHONE - PHONE NUMBER [CELLULAR] - Is patient phone number correct, if not, enter below: Clayton's phone number: JAYLAN ALVAREZ [address] [place], [place], [address] Clayton's present location and address for appointment: see chart Clayton's emergency contact name and phone number: see chart Clayton reported that location is private and safe: Yes Informed Consent: Clayton informed of the risks and benefits of Telehealth video care. has the right to refuse video services. If refuses video visit, a [id number] visit will be scheduled. Clayton verbalized consent for this video visit: Yes Clayton provided consent for any other persons present [...] conducting effective and ethical psychotherapy. SESSION NUMBER: 9 DIAGNOSIS: Major Depressive Disorder, Moderate, Recurrent Secondary (if applicable): PTSD, Chronic MENTAL STATUS/BEHAVIORAL OBSERVATIONS Clayton arrived to the appointment on time and [...] intent. ASSESSMENT Date Instrument Raw Trans Scale 08/27/2024 12:31 PHQ9 24 PHQ9 08/20/2024 12:42 PHQ9 24 PHQ9 08/13/2024 12:59 PHQ9 14 PHQ9 07/30/2024 12:37 PHQ9 18 PHQ9 07/23/2024 12:45 PHQ9 18 PHQ9 07/16/2024 12:34 PHQ9 23 PHQ9 07/09/2024 12:34 PHQ9 23 PHQ9 07/02/2024 12:34 PHQ9 13 PHQ9 06/18/2024 12:38 PHQ9 21 PHQ9 03/18/2023 10:12 PHQ9 10 PHQ9 OTHER ASSESSMENT MEASURES Nash reported that she continues to feel very fatigued. She has not set an appointment with her prescriber yet, as her blood pressure was high during the last visit. She is planning to monitor her pressure at home to see if stress is contributing to high blood pressure during medical appointments at [place]. SESSION CONTENT: In this middle phase session of Cognitive Behavioral Therapy (CBT) for depression, the following therapeutic activities were performed: BRIDGE FROM LAST SESSION Therapist inquired about what the Clayton found important or helpful from the last session and if the had any concerns about the last session. Therapist inquired about the degree to which the homework was completed and what was learned from the homework assessment. PRIORITIZED AGENDA The therapist and Clayton collaboratively developed a prioritized agenda. COGNITIVE STRATEGIES: The following cognitive strategies were discussed during the session: Identified Automatic Thoughts Modified Dysfunctional Automatic Thoughts Examined the evidence Identified cognitive errors Used 5-Column Thought Record Nash noticed the pattern in her automatic thinking to include, Nothing ever works out. She stated that she tends to think positive and assume good things will occur, and that when they don't, she feels very disapointed and believes nothing ever works out for her. Nash also noticed a theme of feeling upset if she waited for her partner who then cancelled plans because she didn't accomplish anything. Clayton considered the impact of believiing this thought, the evidence for and against, and identified cognitive distortion (i.e., over-generalizing). She noted that she has plenty of evidence for. Clayton was asked about evidence against that she is not including and was able to identify some, but her mind would [place] back to the evidence for. Therapist employed the Guided Discovery method when incorporating cognitive and/or behavioral strategies COLLABORATIVE HOMEWORK ASSIGNMENT: The homework assignment for this session was: thought record The homework assignment and goal of the assignment was written down. The therapist inquired about Clayton's understanding of the homework assignment and its rationale. Therapist and Clayton discussed the likelihood that the will do the homework. Specific roadblocks or challenges for doing the homework were discussed. PLAN Next session planned for agreed upon date/time of: Fri 1pm VVC, continue CBt-D /es/ Azalea Rodriguez PsZahra SEXUAL TRAUMA/WOMEN'S PSYCHOLOGIST Signed: 08/27/2024 15:29 AZALEA RODRIGUEZ [facility] [place] Aug 27, 2024 12:41 PM MENTAL HEALTH DIAGNOSTIC STUDY NOTE: LOCAL TITLE: MENTAL HEALTH DIAGNOSTIC STUDY STANDARD TITLE: MENTAL HEALTH DIAGNOSTIC STUDY NOTE DATE OF NOTE: AUG 27, 2024@12:41:09 ENTRY DATE: AUG 27, 2024@12:41:09 AUTHOR: AZALEA RODRIGUEZ COSIGNER: URGENCY: STATUS: COMPLETED Assessments were sent to the Clayton via text/email. These assessments were completed by JAYLAN ALVAREZ) on their own device on 08/27/2024 12:31:10 PM. PATIENT HEALTH QUESTIONNAIRE-9 (PHQ-9) The patient [...] others. PHQ-9 Total Score (past 180 days): 08/27/2024 24 08/20/2024 24 08/13/2024 14 07/30/2024 18 07/23/2024 [...] Trouble sleeping: Extremely PCL-5 total score = 66 This measure assesses an individual's perception of [...] PCL-5 Weekly Total Score (past 180 days): 08/27/2024 66 08/20/2024 74 08/13/2024 44 07/30/2024 60 07/23/2024 56 07/16/2024 55 07/09/2024 65 07/02/2024 51 06/18/2024 49 /mat/ Azalea Rodriguez Psy.D. SEXUAL TRAUMA/WOMEN'S PSYCHOLOGIST Signed: 08/27/2024 15:22 [facility]
--- OUTSIDE RECORDS SUMMARY | 2024-09-10 09:00 | XMS_ITS | Encounter Summary ---
Author Name [facility] [facility] [place] Address [address] [place] [address] Care Team Providers Care [facility] Orderly Name Role Phone TRINH FRANCO Primary Care [...] Patient's Relationship to Policy [facility] [employer] ([phone]) PRESCRIPT ION [facility] Jun 07, 2022 [id number] J[address] ALVAREZ PATIENT Selected Encounter This section includes the information on record at [place] for the Encounter. Date/Time Encounter Type Encounter Description Reason Provider Source Sep 10, 2024 01:00 PM PSYTX W PT 45 MINUTES [facility] - IND ICD-10-CM F33.1 Major depressive disorder, recurrent, moderate CAMPONOGARA,SA LIYAH E Encounter Template Text not used by [place] Assessments - Encounter Diagnoses This section includes the primary and secondary diagnoses documented for the Encounter. Date/Time Primary/Secondary Diagnosis Diagnosis Name Provider Source Sep 10, 2024 04:20 PM PRIMARY Major depressive disorder, recurrent, moderate CAMPONOGARA,SA LIYAH [place] [facility] [place] [facility] Sep 10, 2024 04:20 PM SECONDARY Post-traumatic stress disorder, chronic CAMPONOGARA,SA LIYAH [facility] [place] [facility] Plan of Treatment: Future Appointments (+ 6 months) and Future Tests (+/- 45 days) The Plan of Treatment section includes future care activities for the patient from all [place] treatmentfacilities. This section includes future appointments and future orders which are active, pending or scheduled. Future Appointments This section includes appointments that were scheduled to occur 6 months from the date of the Encounter, up to a maximum of 20 appointments. The data comes from all [place] treatment facilities. Appointment Date/Time Appointment Type Appointme nt Facility Name Sep 16, 2024 09:00 AM AMBULATORY - MEDICINE [facility] [place] [facility] Sep 17, 2024 01:00 PM AMBULATORY - PSYCHIATRY [facility] [place] [facility] Sep 24, 2024 11:30 AM AMBULATORY - PSYCHIATRY [facility] [place] [facility] Oct 08, 2024 01:00 PM AMBULATORY - PSYCHIATRY [facility] [place] [facility] October 29, 2024 01:00 PM AMBULATORY - PSYCHIATRY [facility] [place] [facility] November 05, 2024 01:00 PM AMBULATORY - PSYCHIATRY [facility] [place] [facility] November 12, 2024 01:00 PM AMBULATORY - PSYCHIATRY [facility] [place] [facility] November 19, 2024 01:00 PM AMBULATORY - PSYCHIATRY [facility] [place] [facility] Dec 10, 2024 01:00 PM AMBULATORY - PSYCHIATRY [facility] [place] [facility] Dec 17, 2024 01:00 PM AMBULATORY - PSYCHIATRY [facility] [place] [facility] Dec 22, 2024 10:15 AM AMBULATORY - MEDICINE [facility] [place] [facility] Dec 23, 2024 01:30 PM AMBULATORY - MEDICINE [facility] [place] [facility] Dec 31, 2024 01:00 PM AMBULATORY - PSYCHIATRY [facility] [place] [facility] Jan 04, 2025 10:00 AM AMBULATORY - MEDICINE [facility] [place] [facility] Jan 28, 2025 08:00 AM AMBULATORY - MEDICINE [facility] [place] [facility] Jan 28, 2025 02:00 PM AMBULATORY - PSYCHIATRY [place] [facility] [place] [facility] Jan 28, 2025 02:00 PM AMBULATORY - [place]ATRY [place] [facility] Jan 31, 2025 03:00 PM AMBULATORY - PSYCHIATRY [place] [facility] [place] [facility] Feb 03, 2025 08:00 AM [facility] Feb 16, 2025 03:00 PM AMBULATORY - PSYCHIATRY [facility] Lab Results: +/- 30 days of the encounter This section includes the Chemistry and Hematology Lab Results on record with [place] for the patient. Radiology Reports and Pathology Reports are provided separately, in subsequent sections. Lab Results This section contains the Chemistry/Hematology Results that were resulted 30 days before or 30 daysafter the date of the Encounter. Date/Time Source Result Type Result - Unit Interpretation Reference Range Specimen Type Comment Aug 19, 2024 02:32 PM [facility] LIVER FUNCTION SERUM Specimen Type: SERUM No comment entered. Ordering Provider: LEANDRA BAEZ V Report Released Date/Time: Aug 19, 2024 02:18 PM Reporting Lab: [address] [id number] Performing Lab: [address] [address] PROTEIN,TOTAL 7.0 g/dL 6.0-8.3 ALBUMIN 3.7 g/dL 3.5-5.0 ALKALINE PHOSPHATASE 49 U/L 40-150 AST 15 U/L 5-34 ALT 14 U/L BILIRUBIN, TOTAL 0.4 mg/dL 0.2-1.2 Aug 19, 2024 02:32 PM [facility] VITAMIN D (25-OH) SERUM Specimen Type: SERUM No comment entered. Ordering Provider: LEANDRA BAEZ V Report Released Date/Time: Aug 19, 2024 02:18 PM Reporting Lab: [address] [address] Performing Lab: [address] [address] VITAMIN D (25-OH) 18 ng/mL L 20-50 Aug 19, 2024 02:32 PM [facility] CBC BLOOD Specimen Type: BLOOD No comment entered. Ordering Provider: LEANDRA BAEZ V Report Released Date/Time: Aug 19, 2024 02:18 PM Reporting Lab: [facility] [address] [facility] [address] Performing Lab: [address] [address] WBC 6.15 10*3/uL 4.50-11.00 RBC 3.96 10*6/uL 3.93-5.16 HGB 13.2 g/dL 12-15.2 HCT 38.1 36.6-45.6 MCV 96.2 fL 82-99 MCHC 34.6 g/dL 30.8-35.1 PLT 295 10*3/uL 140-360 RDW-CV 11.6 L 12.0-16.0 MCH 33.3 pg H 26.2-32.6 Aug 19, 2024 02:32 PM [facility] BASIC METABOLIC PANEL (non-fasting) SERUM Spe cimen Type: SERUM No comment entered. Ordering Provider: LEANDRA BAEZ V Report Released Date/Time: Aug 19, 2024 02:18 PM Reporting Lab: [address] [address] Performing Lab: [address] [address] UREA NITROGEN 15 mg/dL 7-25 GLUCOSE 84 [...] and tobacco- related health factors from the [place] facility where the Encounter took place. Current Smoking Status This section includes the most current smoking, or tobacco-related health factor, from the [place] facility where the Encounter took place. Date/Time Current Smoking Status Comment Facil ity May 14, 2024 01:00 PM VA-TOBACCO NEVER U SED CIGARETTES [facility] Tobacco Use History This section includes a history of the smoking, or tobacco-related health factors, that were collected on or before the date of the Encounter. The data comes from the [place] facility where the Encounter took place. Date/Time Smoking Status/Tobacco Use Comment F acility May 14, 2024 01:00 PM VA-TOBACCO NEVER U SED OTHER TYPE [facility] Advance Directives: All historical and current Section Date Range: From patient's date of to the date document was created. This section includes ALL of a patient's completed or amended [place] Advance and Rescinded Directives. The entries below indicate that a directive exists for the patient, but an actual copy is not included with this document. The data comes from all [place] facilities. Date Advance Directives Provider Source Mar 25, 2023 ADVANCE DIRECTIVE PETROS MOTLEY [facility] Encounter Notes: All associated encounter notes This section contains the clinical notes associated to the Encounter. Date/Time Encounter Note(s) Provider Source Sep 10, 2024 04:16 PM MENTAL HEALTH NOTE: LOCAL TITLE: CBT DEPRESSION THERAPY NOTE STANDARD TITLE: MENTAL HEALTH NOTE DATE OF NOTE: SEP 10, 2024@16:16 ENTRY DATE: SEP 10, 2024@16:16:55 AUTHOR: ROBERT RODRIGUEZ EXP COSIGNER: URGENCY: STATUS: COMPLETED [facility] ([facility]VC) Standard Documentation [facility] Clinician Resources Only: E911 (Emergency Call Relay Center): [phone] National [employer] Crisis Line - 988 then press #1. DEYA Suicide Coordinator [phone], Ext. [phone]; Back-up Ext. [phone] JOHN PoliceDAVID [place] [phone] Introduction: Visit is being conducted by [employer]. identified with 2 identifiers: [X] Full Name [X] Date of [ ] VA ID Card Emergency Plan: Ki[place]ha [place] confirmed and/or provided the following information in case of emergency or technology failure. PATIENT PHONE - PHONE NUMBER [CELLULAR] - Is patient phone number correct, if not, enter below: Kiamesha Lake's phone number: JAYLAN ALVAREZ [address] [place], [place], [address] Ki[place]ha Lake's present location and address for appointment: see chart Kiamesha Lake's emergency contact name and phone number: see chart reported that location is private and safe: Yes Informed Consent: Ki[place]ha Lake informed of the risks and benefits of Telehealth video care. Ki[place]ha Lake has the right to refuse video services. If refuses video visit, a [id number] visit will be scheduled. verbalized consent for [...] conducting effective and ethical psychotherapy. SESSION NUMBER: 10 DIAGNOSIS: Major Depressive Disorder, Moderate, Recurrent Secondary (if applicable): PTSD, Chronic MENTAL STATUS/BEHAVIORAL OBSERVATIONS arrived to the appointment on time and was dressed appropriate to context. was oriented x4, and her thought process was linear, logical, and coherent. She described her mood as depressed and her affect was expressive, stable, and consistent with stated mood. Speech and motor activity fell within normal limits. Ki[place]ha Lake was polite, cooperative, and engaged. denied suicidal and homicidal ideation, plan, and intent. ASSESSMENT Date Instrument Raw Trans Scale 09/10/2024 13:00 PHQ9 21 PHQ9 08/27/2024 12:31 PHQ9 24 PHQ9 08/20/2024 12:42 [...] from the last session and if the [place]ha Lake had any concerns about the last session. Therapist inquired about the degree to which the homework was completed and what was learned from the homework assessment. PRIORITIZED AGENDA The therapist and Kiamesha Lake collaboratively developed a prioritized agenda. COGNITIVE STRATEGIES: The following cognitive strategies were discussed during the session: Modified Dysfunctional Automatic Thoughts Examined the evidence Identified cognitive errors Used 5-Column Thought Record reported that she completed one thought record over the past week. She noticed how her negative automatic thought added suffering to a potentially good situation. considered alternative explanations to her automatic belief. Her automatic belief remained stuck, as she stated that there is sufficient evidence to suggest it is accurate. reported that she received feedback from a coworker that she does not work well with others. She also reflected that she engages in cognitive distortions related to perfectionism, which we connected to her service and to intermediate beliefs about lack of belonging. Therapist employed the Guided Discovery method when incorporating cognitive and/or behavioral strategies COLLABORATIVE HOMEWORK ASSIGNMENT: The homework assignment for this session was: The homework assignment and goal of the assignment was written down. The therapist inquired about 's understanding of the homework assignment and its rationale. Therapist and discussed the likelihood that the will do the homework. FINAL SUMMARY AND FEEDBACK: Kiamesha Lake reported that her belief remained stuck. PLAN Next session planned for agreed upon date/time of: 09/16 at 1pm [facility], continue CBT-D /es/ Robert Rodriguez Psy.D. SEXUAL TRAUMA/WOMEN'S PSYCHOLOGIST Signed: 09/10/2024 16:21 ROBERT RODRIGUEZ [facility] [place] [facility] Sep 10, 2024 01:02 PM MENTAL HEALTH DIAGNOSTIC STUDY NOTE: LOCAL TITLE: MENTAL HEALTH DIAGNOSTIC STUDY STANDARD TITLE: MENTAL HEALTH DIAGNOSTIC STUDY NOTE DATE OF NOTE: SEP 10, 2024@13:02:10 ENTRY DATE: SEP 10, 2024@13:02:10 AUTHOR: ROBERT RODRIGUEZ EXP COSIGNER: URGENCY: STATUS: COMPLETED Assessments were sent to the via text/email. These assessments were completed by JAYLAN ALVAREZ) on their own device on 09/10/2024 1:00:27 PM. PATIENT HEALTH QUESTIONNAIRE-9 (PHQ-9) The patient [...] others. PHQ-9 Total Score (past 180 days): 09/10/2024 21 08/27/2024 24 08/20/2024 24 08/13/2024 14 07/30/2024 [...] Quite a bit 12. Loss of interest: Quite a bit [...] PCL-5 Weekly Total Score (past 180 days): 09/10/2024 60 08/27/2024 66 08/20/2024 74 08/13/2024 44 07/30/2024 60 07/23/2024 56 07/16/2024 55 07/09/2024 65 07/02/2024 51 06/18/2024 49 /mat/ Robert TatumDKitty SEXUAL TRAUMA/WOMEN'S PSYCHOLOGIST Signed: 09/10/2024 16:16 [facility]
--- OUTSIDE RECORDS SUMMARY | 2024-09-16 05:00 | XMS_ITS | Encounter Summary ---
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 Date/Time Encounter Type Encounter Description Reason Provider Source Sep 16, 2024 09:00 AM OFFICE O/P EST MOD 30 MIN PRIMARY CARE/MEDICINE ICD-10-CM N95.8 Other specified menopausal and perimenopausal disorders TRINH FRANCO [facility] Encounter Template Text not used by [place] Assessments - Encounter Diagnoses This section includes the primary and secondary diagnoses documented for the Encounter. Date/Time Primary/Secondary Diagnosis Diagnosis Name Provider Source Sep 17, 2024 07:58 AM PRIMARY Other specified menopausal and perimenopausal disorders TRINH FRANCO [facility] Plan of Treatment: Future Appointments (+ 6 months) and Future Tests (+/- 45 days) The Plan of Treatment section includes future care activities for the [facility] [place] [facility] This section includes future appointments and future orders which are active, pending or scheduled. Future Appointments This section includes appointments that were scheduled to occur 6 months from the date of the Encounter, up to a maximum of 20 appointments. The data comes from all [place] treatment facilities. Appointment Date/Time Appointment Type Appointme nt Facility Name Sep 17, 2024 01:00 PM [facility]ULAT[facility] [place] [facility] Sep 24, 2024 11:30 AM [facility]ULATORY [facility] [place] [facility] Oct 08, 2024 01:00 PM AMBULATORY [facility] [place] [facility] October 29, 2024 01:00 PM AMBULATORY [facility] [place] [facility] November 05, 2024 01:00 PM AMBULATORY [facility] [place] [facility] November 12, 2024 01:00 PM AMBULATORY [facility] [place] [facility] November 19, 2024 01:00 PM AMBULATORY [facility] [place] [facility] Dec 10, 2024 01:00 PM AMBULATORY [facility] [place] [facility] Dec 17, 2024 01:00 PM AMBULATORY [facility] [place] [facility] Dec 22, 2024 10:15 AM AMBULATORY [facility] MEDICINE [facility] [place] [facility] Dec 23, 2024 01:30 PM [facility]ULATORY [facility]ICINE [facility] [place] [facility] Dec 31, 2024 01:00 PM AMBULATORY [facility] PS[facility] [place] [facility] Jan 04, 2025 10:00 AM AMBULATORY [facility] MEDICINE [facility] [place] [facility] Jan 28, 2025 08:00 AM AM[facility]ULATORY [facility] MEDICINE [facility] [place] [facility] Jan 28, 2025 02:00 PM AMBULATORY [facility] PS[facility] [place] [facility] Jan 28, 2025 02:00 PM AM[place]UL[place]ORY [place] [facility] Jan 31, 2025 03:00 PM AMBUL[facility]ORY [facility] [place] [facility] Feb 03, 2025 08:00 AM [facility] Feb 16, 2025 03:00 PM [facility] Feb 22, 2025 02:00 PM AMBULATORY - PSYCHIATRY [facility] Lab Results: +/- 30 days of the encounter This section includes the Chemistry and Hematology Lab Results on record with [place] for the patient. Radiology Reports and Pathology Reports are provided separately, in subsequent sections. Lab Results This section contains the Chemistry/Hematology Results that were resulted 30 days before or 30 daysafter the date of the Encounter. Date/Time Source Result Type Result - Unit Interpretation Reference Range Specimen Type Comment Aug 19, 2024 02:32 PM [facility] VITAMIN D (25-OH) SERUM Specimen Type: SERUM No comment entered. Ordering Provider: LEANDRA BAEZ V Report Released Date/Time: Aug 19, 2024 02:18 PM Reporting Lab: [address] [address] Performing Lab: [address] [address] VITAMIN D (25-OH) 18 ng/mL L 20-50 Aug 19, 2024 02:32 PM [facility] LIVER FUNCTION SERUM Specimen Type: SERUM No comment entered. Ordering Provider: LEANDRA BAEZ V Report Released Date/Time: Aug 19, 2024 02:18 PM [facility] [address] Performing Lab: [address] [address] PROTEIN,TOTAL 7.0 g/dL 6.0-8.3 ALBUMIN 3.7 g/dL 3.5-5.0 ALKALINE PHOSPHATASE 49 U/L 40-150 AST 15 U/L 5-34 ALT 14 U/L BILIRUBIN, TOTAL 0.4 mg/dL 0.2-1.2 Aug 19, 2024 02:32 PM [facility] BASIC METABOLIC PANEL (non-fasting) SERUM Spe cimen Type: SERUM No comment entered. Ordering Provider: LEANDRA BAEZ V Report Released Date/Time: Aug 19, 2024 02:18 PM Reporting Lab: [facility] [address] [facility] [address] Performing Lab: [facility] [address] [facility] [address] UREA NITROGEN 15 mg/dL 7-25 GLUCOSE 84 mg/dL 65-100 SODIUM 136 mmol/L 135-145 POTASSIUM 4.4 mmol/L 3.5-5.0 CHLORIDE 104 mmol/L 100-110 CO2 24 meq/L 20-30 CALCIUM 9.1 mg/dL 8.5-10.2 CREATININE, Serum 0.80 mg/dL 0.50-1.40 eGFR(CKD-EPI 2020) >90 mL/min >60 Aug 19, 2024 02:32 PM [facility] CBC BLOOD Specimen Type: BLOOD No comment entered. Ordering Provider: LEANDRA BAEZ V Report Released Date/Time: Aug 19, 2024 02:18 PM Reporting Lab: [facility] [address] [facility] [address] Performing Lab: [facility] [address] [facility] [address] WBC 6.15 10*3/uL 4.50-11.00 RBC 3.96 10*6/uL 3.93-5.16 HGB 13.2 g/dL 12-15.2 HCT 38.1 36.6-45.6 MCV 96.2 fL 82-99 MCHC 34.6 g/dL 30.8-35.1 PLT 295 10*3/uL 140-360 RDW-CV 11.6 L 12.0-16.0 MCH 33.3 pg H 26.2-32.6 Vital Signs: All taken on the encounter date This section contains inpatient and outpatient Vital Signs collected on the date of the Encounter. Date/Time Temperature Pulse Blood Pressure Respiratory Rate SP02 Pain Height Weight Body Mass Index Source Sep 16, 2024 09:09 AM 97.5 97 118/64 16 99 0 61 144 27 [facility] Social History: Smoking Status (Most current) and Tobacco Use (All prior to encounter date) This section includes the most current, and the historical, smoking and tobacco- related health factors from the [place] facility where the Encounter took place. Current Smoking Status This section includes the most current smoking, or tobacco-related health factor, from the [place] facility where the Encounter took place. Date/Time Current Smoking Status Comment Facil ity May 14, 2024 01:00 PM [place]-TOBACCO NEVER U SED OTHER TYPE [facility] Tobacco Use History This section includes a history of the smoking, or tobacco-related health factors, that were collected on or before the date of the Encounter. The data comes from the [place] facility where the Encounter took place. Date/Time Smoking Status/Tobacco Use Comment F acility May 14, 2024 01:00 PM [place]-TOBACCO NEVER U SED OTHER TYPE [facility] Advance Directives: All historical and current Section Date Range: From patient's date of to the date document was created. This section includes ALL of a patient's completed or amended [place] Advance and Rescinded Directives. The entries below indicate that a directive exists for the patient, but an actual copy is not included with this document. The data comes from all [place] facilities. Date Advance Directives Provider Source Mar 25, 2023 ADVANCE DIRECTIVE [facility] Encounter Notes: All associated encounter notes This section contains the clinical notes associated to the Encounter. Date/Time Encounter Note(s) Provider Source Sep 16, 2024 09:17 AM PRIMARY CARE NURSE PRACTITIONER OUTPATIENT NOTE: LOCAL TITLE: NURSE PRACTITIONER OUTPATIENT NOTE STANDARD TITLE: PRIMARY CARE NURSE PRACTITIONER OUTPATIENT NOTE DATE OF NOTE: SEP 16, 2024@09:17 ENTRY DATE: SEP 16, 2024@09:17:57 AUTHOR: TRINH FRANCO EXP COSIGNER: URGENCY: STATUS: COMPLETED Chief complaint: Pt is a 43 who comes in for follow up of medical problems as noted below. HPI: Getting monthly menses q 28-29 days-they are regular, lasting 5-6 days in that week denies painful menses or cramping denies large clots Prior to menses will get sick with vomiting and diarrhea, also a few occasions of body aches and she reports occasional fevers unsure of actual temps, she has Autoimmune dz with Ankylosing spondlitys and on biologic she discussed with her nurse ortho, tells me no concerns from Rheum perspective. She denies having any premenstrual sx in her past Menarched age 12-13 menses always reg she is not concerned about had cancer with radiation was told likely no ability to get her has been on Enbrel for since 2006 denies these sx while on DMARDs Has seasonal allergies and on two antihistamines per pulp roller does not feels like hayfever like sx denies pelvic pain vaginal dryness hot flashes although gets hot more easliy deines mood changes is on lexapro and following with , she is thinking about asking if stimulent would help her daytime sleepiness she does not think she has JOSE G but amenable to bang sleep study She would like to try hormones to see if that helps sx PMH: Active problems - Computerized Problem List is the source for the followin. Major depressive disorder 2. Chronic post-traumatic stress disorder 3. Exposure to potentially hazardous substance Connect Snomed Code to ICD 10 Code refer to note dated 03/25/23 4. Blood in stool 5. History of dysthymia 6. HTN - Hypertension ([facility] [id number]) 7. Vitamin D Deficiency ([facility] [id number]) 8. GERD - Gastro-Esophageal Reflux Disease ([facility] [id number]) 9. Allergic Rhinitis ([facility] [id number]) 10. History of nephrolithiasis 11. - Ankylosing spondylitis Allergies: Patient has answered NKA The following VA and Non-VA meds were reconciled with patient: Active and Recently Outpatient Medications (excluding Supplies): Active Outpatient Medications Status 1) CHOLECALCIF 50MCG (D3-2,000UNIT) TAB TAKE ONE TABLET BY ACTIVE (S) MOUTH ONCE DAILY FOR VITAMIN SUPPLEMENTATION Indication: FOR VITAMIN D DEFICIENCY 2) CREON 24,000UNIT EC CAP TAKE 2 CAPSULES BY MOUTH TWICE DAILY ACTIVE (S) 3) ESCITALOPRAM OXALATE 10MG TAB TAKE ONE AND ONE-HALF TABLETS ACTIVE (S) BY MOUTH EVERY EVENING FOR MOOD/DEPRESSION Indication: FOR REPEATED EPISODES OF ANXIETY 4) ETANERCEPT 50MG/ML INJ SURECLICK INJECT 50MG SUBCUTANEOUSLY ACTIVE (S) Q FRIDAY Indication: SPONDYLOARTHROPATHY 5) FEXOFENADINE HCL 180MG TAB TAKE ONE TABLET BY MOUTH ONCE ACTIVE (S) DAILY Indication: FOR ALLERGIES Active Non-VA Medications Status 1) Non-VA PANTOPRAZOLE NA 20MG EC TAB 20MG BY MOUTH EVERY ACTIVE MORNING 30 MINUTES BEFORE BREAKFAST Indication: Ulcer 6 Total Medications Allergies: Patient has answered NKA VITAL SIGNS: 97.5 F [36.4 C] (09/16/2024 09:09) 97 (09/16/2024 09:09) 16 (09/16/2024 09:09) 118/64 (09/16/2024 09:09) 0 (09/16/2024 09:09) 61 in [154.9 cm] (09/16/2024 09:09) 144 lb [65.32 kg] (09/16/2024 09:09) BMI: 27.3 ROS: General: no fever, no unexplained weight loss or gain CV: denies CP, SOB, palpitations Lung: denies Dyspnea or wheezing Abd: denies n/v/d Breast: denies discharge, lumps or pain : denies discharge, pruritis, dysuria; no urinary incontinence Ext: denies edema Skin: denies rash or other lesions Psych: denies SI Neuro: denies dizziness, falls PHYSICAL EXAM General: No acute distress, speech is clear, forming sentences. CV: S1S2, RRR, no m/r/g Lung: CTAB, no wheeze, rhonchi, or crackles no audible cough Neuro: CN 2-12 grossly intact Psych: A&Ox3, appropriate mood and affect WBC: 6.15 RBC: 3.96 HGB: 13.2 HCT: 38.1 MCV: 96.2 MCHC: 34.6 RDW: 11.6 L PLT: 295 MCH: 33.3 H VITAMIN D TOTAL: 18 L GLUCOSE: 84 UREA NITROGEN: 15 SODIUM: 136 POTASSIUM: 4.4 CHLORIDE: 104 CO2: 24 CALCIUM: 9.1 PROTEIN,TOTAL: 7.0 ALBUMIN: 3.7 ALKALINE PHOSPHATASE: 49 SGOT: 15 SGPT: 14 BILIRUBIN,TOT.: 0.4 CREATININE-EGFR: 0.80 eGFR CKD-EPI 2020: >90 Future Clinic Visits 09/17/2024 13:00 [facility] 1 2024 10:30 [facility] AM 01/13/2025 13:00 [facility] RHEUMATOLOGY MD 2 01/18/2025 09:00 [facility] 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 Clinical Reminders HIV Screening: Patient has been offered HIV testing and has declined. I have explained that HIV testing is recommended for all adults, even if all risk factors are absent. The patient was educated on the risk of delayed screening. Medication Reconciliation: Outpatient: Has the patient been taking medications as documented in the EMLR? YES: The patient has been taking medications as documented in the EMLR. Essential Medication List for Review used to complete this medication reconciliation. INCLUDED IN THIS LIST: Alphabetical list of active outpatient prescriptions dispensed from this [facility] (local) and dispensed from another [place] or [place] facility (remote) as well as [...] with a VA or non-VA provider. /mat/ CLAUDIA DE LOS SANTOS Nurse Practitioner Signed: 09/17/2024 07:57 TRINH FRANCO [place] [facility] [place] [facility] Sep 16, 2024 09:12 AM PREVENTIVE MEDICINE NURSING NOTE: LOCAL TITLE: CLINICAL REMINDERS/NURSING STANDARD TITLE: PREVENTIVE MEDICINE NURSING NOTE DATE OF NOTE: SEP 16, 2024@09:12 ENTRY DATE: SEP 16, 2024@09:12:34 AUTHOR: SHARON HUIZAR COSIGNER: URGENCY: STATUS: COMPLETED RHS Screen: RHS Screen Session Format: Face to Face Environmental Check Upon inquiry, the individual reports that the environment is safe to proceed. Informed Consent to Screen and Document The individual consents to proceed with screening. The individual consents to documentation of responses. PRIMARY SCREEN: In the past 12 months, how often did a current or former intimate partner (e.g., boyfriend, girlfriend, , , sexual partner): 1. Scream or curse at you Never 2. Insult or talk down to you Never 3. Threaten you with harm Never 4. Physically hurt you Never 5. Force or pressure you to have sexual contact against your will, or when you were unable to say no Never The HITS tool (items 1-4 above) is [place] copyright protected by Benjie Grimes MD, and the user has full rights to use it throughout the [place] system. PRIMARY SCREEN RESULT: The Primary Screen is NEGATIVE. The individual answered never to all forms of IPV above (i.e., answered never to all 5 items) The individual accepts education and/or resources: Other: N/A EDUCATION: Other: N/A Screen for Embedded Fragments: SCREEN FOR EMBEDDED FRAGMENTS The patient reports no embedded fragments. COVID-19 Immunization: Refused Moderna Monovalent COVID-19 vaccine Immunization: COVID-19 (MODERNA), MRNA, LNP-S, PF, 50 MCG/0.5 ML (AGES 12+ YEARS) Refusal Reason: PATIENT DECISION Patient refuses all immunization(s) in the COVID-19 group Date Documented: 09/16/24 09:15 Herpes Zoster (Shingles) Vaccine: The patient declines to receive the recommended dose of zoster (shingles) vaccine. Immunization: ZOSTER RECOMBINANT Refusal Reason: PATIENT DECISION Patient refuses all immunization(s) in the ZOSTER group Date Documented: 09/16/24 09:16 Pneumococcal Conjugate Vaccine (PCV15/PCV20/PCV21): Refuses PCV vaccine Immunization: PNEUMOCOCCAL CONJUGATE, UNSPECIFIED FORMULATION Refusal Reason: PATIENT DECISION Patient refuses all immunization(s) in the PneumoPCV group Date Documented: 09/16/24 09:16 Advance Directive Screen MH AD: Patient has an Advance Directive on file at this [facility]. No updates are needed at this time. The patient received education about Advance Directives and written notification of his/her rights. Comment: up to date Influenza Immunization: Deferral / Refusal The patient declines to receive the recommended dose of seasonal influenza vaccine. Immunization: INFLUENZA, UNSPECIFIED FORMULATION Refusal Reason: PATIENT DECISION Patient refuses all immunization(s) in the FLU group Date Documented: 09/16/24 09:17 /mat/ SHARON HUIZAR LPN GED TEACHER Signed: 09/16/2024 09:17 SHARON HUIZAR [place] [facility]
--- OUTSIDE RECORDS SUMMARY | 2024-09-17 09:00 | XMS_ITS | Encounter Summary ---
Author Name [facility] [place] Organization [facility] [place] Address [address] [place] [address] Care Team Providers Care Broom Stitcher Name Role Phone TRINH FRANCO Primary Care [...] Patient's Relationship to Policy [facility] [employer] ([id number]) [facility]CRIPT [facility] Jun 07, 2022 GICRXS1 [id number] Jelani ALVAREZ PATIENT Selected Encounter This section includes the information on record at [place] for the Encounter. Date/Time Encounter Type Encounter Description Reason Provider Source Sep 17, 2024 01:00 PM PSYTX W PT 45 MINUTES [facility]ENTAL [facility] CLINIC - IND ICD-10-CM F33.1 Major depressive disorder, recurrent, moderate CAMPONOGARA,SA LIYAH E Encounter Template Text not used by [place] Assessments - Encounter Diagnoses This section includes the primary and secondary diagnoses documented for the Encounter. Date/Time Primary/Secondary Diagnosis Diagnosis Name Provider Source Sep 17, 2024 03:23 PM PRIMARY Major depressive disorder, recurrent, moderate CAMPONOGARA,SA LIYAH [place] [facility] [place] [facility] Sep 17, 2024 03:23 PM SECONDARY Post-traumatic stress disorder, chronic CAMPONOGARA,SA LIYAH [place] [facility] [place] [facility] Plan of Treatment: Future Appointments (+ [...] Appointment Type Appointme nt Facility Name Sep 24, 2024 11:30 AM AMBULATORY - PSYCHIATRY [facility] [place] [facility] Oct 08, 2024 01:00 PM AMBULATORY - PSYCHIATRY [facility] [place] [facility] October 29, 2024 01:00 PM AMBULATORY - PSYCHIATRY [facility] [place] [facility] November 05, 2024 01:00 PM AMBULATORY - PSYCHIATRY [facility] [place] [facility] November 12, 2024 01:00 PM AMBULATORY - PSYCHIATRY [facility] [place] [facility] November 19, 2024 01:00 PM AMBULATORY - PSYCHIATRY [facility] [place] [facility] Dec 10, 2024 01:00 PM AMBULATORY - PSYCHIATRY [facility] [place] [facility] Dec 17, 2024 01:00 PM AMBULATORY - PSYCHIATRY [facility] [place] [facility] Dec 22, 2024 10:15 AM AMBULATORY - MEDICINE VA C [facility] [place] [facility] Dec 23, 2024 01:30 PM AMBULATORY - MEDICINE VA C [facility] [place] [facility] Dec 31, 2024 01:00 PM AMBULATORY - PSYCHIATRY [facility] [place] [facility] Jan 04, 2025 10:00 AM AMBULATORY - MEDICINE VA C [facility] [place] [facility] Jan 28, 2025 08:00 AM AMBULATORY - MEDICINE VA C [facility] [place] [facility] Jan 28, 2025 02:00 PM AMBULATORY - PSYCHIATRY [facility] [place] [facility] Jan 28, 2025 02:00 PM AMBULATORY [place] [facility] Jan 31, 2025 03:00 PM AMBULATORY - PSYCHIATRY [place] [facility] [place] [facility] Feb 03, 2025 08:00 AM AMBULATORY - MEDICINE [place] C [facility] [place] [facility] Feb 16, 2025 03:00 PM AMBULATORY - PSYCHIATRY [place] [facility] [place] [facility] Feb 22, 2025 02:00 PM AMBULATORY - PSYCHIATRY [place] [facility] [place] [facility] Feb 28, 2025 03:00 PM AMBULATORY - PS[place]CHIATRY [place] [facility] Lab Results: +/- 30 days of the encounter This section includes the Chemistry and Hematology Lab Results on record with [place] for the patient. Radiology Reports and Pathology Reports are provided separately, in subsequent sections. Lab Results This section contains the Chemistry/Hematology Results that were resulted 30 days before or 30 daysafter the date of the Encounter. Date/Time Source Result Type Result - Unit Interpretation Reference Range Specimen Type Comment Aug 19, 2024 02:32 PM [facility] LIVER FUNCTION SERUM Specimen Type: SERUM No comment entered. Ordering Provider: LEANDRA BAEZ V Report Released Date/Time: Aug 19, 2024 02:18 PM Reporting [facility] [address] [address] Performing Lab: [address] [address] PROTEIN,TOTAL 7.0 g/dL 6.0-8.3 ALBUMIN 3.7 g/dL 3.5-5.0 ALKALINE PHOSPHATASE 49 U/L 40-150 AST 15 U/L 5-34 ALT 14 U/L BILIRUBIN, TOTAL 0.4 mg/dL 0.2-1.2 Aug 19, 2024 02:32 PM [facility] VITAMIN D (25-OH) SERUM Specimen Type: SERUM No comment entered. Ordering Provider: LEANDRA BAEZ V Report Released Date/Time: Aug 19, 2024 02:18 PM Reporting Lab: [facility] [address] [facility] [facility] [address] Performing Lab: [address] [address] VITAMIN D (25-OH) 18 ng/mL L 20-50 Aug 19, 2024 02:32 PM [facility] CBC BLOOD Specimen Type: BLOOD No comment entered. Ordering Provider: LEANDRA BAEZ V Report Released Date/Time: Aug 19, 2024 02:18 PM Reporting Lab: [facility] [address] [facility] [address] Performing Lab: [address] [address] WBC 6.15 10*3/uL 4.50-11.00 RBC 3.96 10*6/uL 3.93-5.16 HGB 13.2 g/dL 12-15.2 HCT 38.1 36.6-45.6 MCV 96.2 fL 82-99 MCHC 34.6 g/dL 30.8-35.1 PLT 295 10*3/uL 140-360 RDW-CV 11.6 L 12.0-16.0 MCH 33.3 pg H 26.2-32.6 Aug 19, 2024 02:32 PM [facility] BASIC METABOLIC PANEL (non-fasting) SERUM Spe cimen Type: SERUM No comment entered. Ordering Provider: LEANDRA BAEZ V Report Released Date/Time: Aug 19, 2024 02:18 PM Reporting Lab: [address] [address] Performing Lab: [address] [address] UREA NITROGEN 15 mg/dL 7-25 GLUCOSE 84 [...] 01:00 PM VA-TOBACCO NEVER U SED CIGARETTES [facility] Tobacco Use History This section includes a history of the smoking, or tobacco-related health factors, that were collected on or before the date of the Encounter. The data comes from the [place] facility where the Encounter took place. Date/Time Smoking Status/Tobacco Use Comment F acility May 14, 2024 01:00 PM VA-TOBACCO NEVER U SED OTHER TYPE [facility] Advance Directives: All historical and [...] ADVANCE DIRECTIVE PETROS MOTLEY [facility] Encounter Notes: All associated encounter notes This section contains the clinical notes associated to the Encounter. Date/Time Encounter Note(s) Provider Source Sep 17, 2024 03:15 PM MENTAL HEALTH NOTE: LOCAL TITLE: CBT DEPRESSION THERAPY NOTE STANDARD TITLE: MENTAL HEALTH NOTE DATE OF NOTE: SEP 17, 2024@15:15 ENTRY DATE: SEP 17, 2024@15:15:11 AUTHOR: ROBERT RODRIGUEZ EXP COSIGNER: URGENCY: STATUS: COMPLETED [facility] Video Connect (VVC) Standard Documentation VVC Clinician Resources Only: E911 (Emergency Call Relay Center): [phone] National Veterans Crisis Line - 988 then press #1. DEYA Suicide Coordinator [phone], Ext. [phone]; Back-up Ext. [phone] JOHN Police, Kassandra HERNANDEZ [phone] Introduction: Visit is being conducted by [facility] [facility]. identified with 2 identifiers: [X] Full Name [X] Date of [ ] VA ID Card Emergency Plan: confirmed and/or provided the following information in case of emergency or technology failure. PATIENT PHONE - PHONE NUMBER [CELLULAR] - Is patient phone number correct, if not, enter below: [place]'s phone number: JAYLAN ALVAREZ [address], [place], [address] [place]'s present location and address for appointment: see chart 's emergency contact name and phone number: see chart reported that location is private and safe: Yes Informed Consent: informed of the risks and benefits of Telehealth video care. [place] has the right to refuse video services. If refuses video visit, a vfmy-xt-tosh visit will be scheduled. verbalized consent for this video visit: Yes [place] provided consent for any other persons present [...] conducting effective and ethical psychotherapy. SESSION NUMBER: 11 DIAGNOSIS: Major Depressive Disorder, Moderate, Recurrent Secondary (if applicable): PTSD, Chronic MENTAL STATUS/BEHAVIORAL OBSERVATIONS Nash was initially not in the video conference but answered the phone when this provider called. Nash apologized, stating she had fallen asleep on accident, and then promptly transitioned to the video appointment. She was dressed appropriate to the context. Nash was oriented x4, and her thought process was linear, logical, and coherent. She described her mood as tired and her affect was expressive, stable, and consistent with stated mood. Speech and motor activity fell within normal limits. Nash was polite, cooperative, and engaged. Nash denied suicidal and homicidal ideation, plan, and intent. OTHER ASSESSMENT MEASURES This is the 11th session of CBT-D. We engaged in a thorough check-in about treatment progress thus far. Nash did not complete outcome measures in today's session due to starting late. She reported that she has been more active and engaged in meaningful and productive activities (i.e., yoga), and engaging in less napping/sedantary activities since the onset of treatment. She noticed how much she enjoys being in the sun and walking outside. [place] reported that the winter makes it harder for her to engage in some pleasurable experiences (walking, hiking). She stated that increased activity has positively impacted her mood and helps shape what she believes about herself. noted that she is continuing to work on challenging maladaptive negative beliefs about self and others, but finds cognitive restructuring to be a helpful framework for her. SESSION CONTENT: In this middle phase session of Cognitive Behavioral Therapy (CBT) for depression, the following therapeutic activities were performed: BRIDGE FROM LAST SESSION Therapist inquired about what the [place] found important or helpful from the last session and if the [place] had any concerns about the last session. Therapist inquired about the degree to which the homework was completed and what was learned from the homework assessment. PRIORITIZED AGENDA The therapist and [place] collaboratively developed a prioritized agenda. COGNITIVE STRATEGIES: The following cognitive strategies were discussed during the session: Therapist employed the Guided Discovery method when incorporating cognitive and/or behavioral strategies COLLABORATIVE HOMEWORK ASSIGNMENT: The homework assignment for this session was: thought record focused on negative beliefs about self The homework assignment and goal of the assignment was written down. The therapist inquired about 's understanding of the homework assignment and its rationale. Therapist and [place] discussed the likelihood that the will do the homework. FINAL SUMMARY AND FEEDBACK: reported that she is finding this treatment episode helpful. She denied having any constructive feedback for future sessions thus far. PLAN Next session planned for agreed upon date/time of: Fri 1pm 50 min continue CBT-D /mat/ Robert Rodriguez Psy.D. SEXUAL TRAUMA/WOMEN'S PSYCHOLOGIST Signed: 09/17/2024 15:23 ROBERT RODRIGUEZ [place] [facility]
--- OUTSIDE RECORDS SUMMARY | 2024-09-24 07:30 | XMS_ITS | Encounter Summary ---
Author Name [facility] [place] [place] Organization [facility] [place] Address [address] [place] [address] Care Team Providers Care Radiation Oncologist Name Role Phone TRINH FRANCO Primary Care [...] Patient's Relationship to Policy [facility] [employer] ([phone]) PRESCRIPT ION [facility] Jun 07, 2022 [id number] Jelani ALVAREZ PATIENT Selected Encounter This section includes the information on record at [place] for the Encounter. Date/Time Encounter Type Encounter Description Reason Provider Source Sep 24, 2024 11:30 AM OFFICE O/P EST LOW 20 MIN [facility]ENTAL [facility]ALTH CLINIC - IND ICD-10-CM F34.1 Dysthymic disorder JENNIFER PALUMBO Junior Encounter Template Text not used by VA Assessments - Encounter Diagnoses This section includes the primary and secondary diagnoses documented for the Encounter. Date/Time Primary/Secondary Diagnosis Diagnosis Name Provider Source Sep 24, 2024 11:48 AM PRIMARY Dysthymic disorder JENNIFER PALUMBO Sep 24, 2024 11:48 AM SECONDARY Post-traumatic stress disorder, chronic JENNIFER PALUMBO Plan of Treatment: Future Appointments (+ 6 months) and Future Tests (+/- 45 days) The Plan of Treatment section includes future care activities for the patient from all [place] [facility]. This section includes future appointments and future orders which are active, pending or scheduled. Future Appointments This section includes appointments that were scheduled to occur 6 months from the date of the Encounter, up to a maximum of 20 appointments. The data comes from all [place] treatment facilities. Appointment Date/Time Appointment Type Appointme nt Facility Name Oct 08, 2024 01:00 PM AMBULATORY - [...] [place] [facility] November 19, 2024 01:00 PM AMBULATORY - PSYCHIATRY [place] [facility] [place] [facility] Dec 10, 2024 01:00 PM AMBULATORY - PSYCHIATRY [place] [facility] [place] [facility] Dec 17, 2024 01:00 PM AMBULATORY - PSYCHIATRY [place] [facility] [place] [facility] Dec 22, 2024 10:15 AM AMBULATORY - MEDICINE VA C [facility] [place] [facility] Dec 23, 2024 01:30 PM AMBULATORY - MEDICINE [place] [facility] [place] [facility] Dec 31, 2024 01:00 PM AMBULATORY - PSYCHIATRY [place] [facility] [place] [facility] Jan 04, 2025 10:00 AM AMBULATORY - MEDICINE [place] [facility] [place] [facility] Jan 28, 2025 08:00 AM AMBULATORY - MEDICINE [place] [facility] [place] [facility] Jan 28, 2025 02:00 PM AMBULATORY - PSYCHIATRY [place] [facility] [place] [facility] Jan 28, 2025 02:00 PM AM[place]ULATORY [place] [facility] Jan 31, 2025 03:00 PM AMBULATORY - PSYCHIATRY [facility] [place] [facility] Feb 03, 2025 08:00 AM AMBULATORY - MEDICINE VA C [facility] [place] [facility] Feb 16, 2025 03:00 PM AMBULATORY - PSYCHIATRY [facility] [place] [facility] Feb 22, 2025 02:00 PM AMBULATORY [facility] Feb 28, 2025 03:00 PM [facility] Social History: Smoking Status (Most current) and [...] 18, 2023 09:00 AM [place]-TOBACCO NEVER USED [place] Advance Directives: All historical and current Section [...] DIRECTIVE PETROS [facility] Encounter Notes: All associated encounter notes This section contains the clinical notes associated to the Encounter. Date/Time Encounter Note(s) Provider Source Sep 24, 2024 11:31 AM TELEHEALTH NOTE: LOCAL TITLE: [place] VIDEO CONNECT PSYCHIATRIST NOTE STANDARD TITLE: TELEHEALTH NOTE DATE OF NOTE: SEP 24, 2024@11:31 ENTRY DATE: SEP 24, 2024@11:32:20 AUTHOR: JENNIFER PALUMBO COSIGNER: URGENCY: STATUS: COMPLETED VA Video Connect (VVC) Standard Documentation VVC Clinician Resources Only: E911 (Emergency Call Relay Center): [phone] National Veterans Crisis Line - 988 then press #1. DAVID Suicide Coordinator [phone], Ext. [phone]; Back-up Ext. [phone] JOHN PoliceDAVID [place] [phone] Introduction: Visit is being conducted by [place] [employer]. Lannon identified with 2 identifiers: [X] Full Name [X] Date of [ ] VA ID Card Emergency Plan: confirmed and/or provided the following information in case of emergency or technology failure. PATIENT PHONE - PHONE NUMBER [CELLULAR] - Is patient phone number correct, if not, enter below: 's phone number: JAYLAN ALVAREZ [address], [place], [address] 's present location and address for appointment: same as above Lannon's emergency contact name and phone number: unchanged Lannon reported that location is private and safe: Yes Informed Consent: Lannon informed of the risks and benefits of Telehealth video care. has the right to refuse video services. If refuses video visit, a sndk-qj-skyq visit will be scheduled. Lannon verbalized consent for this video visit: Yes Lannon provided consent for any other persons present for visit: N/A If yes, who and relationship to patient: Secure visit: Visit was locked for security and privacy:Yes Does this visit involve laterality/specific side of body? N/A CHART REVIEW: seen for initial MH Consult 03/18/23 noting: Nash is a 42 year old [employer] [facility] [employer] , presenting newly to the [...] TIME OF INITIAL VISIT WITH MYSELF 04/29/23: Lannon reports no prior MH treatment. 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 [place] [employer]. She built a good group of friends who she stayed in touch with for a long time. 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 She was working in mort[employer] affairs in [facility], in Jul 2002 and saw a lot of bodies as a result of that and friends that didn't come home. Is planning to pursue a claim about possible link between her RA and the anthrax vaccine. 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 She [...] hoping she can tolerate sedation this time. NEXT VISIT NOTED: she remains dysphoric. She agrees to try increasing to 15mg daily. Note Wellbutrin not tolerated (c/o heart racing). NOTED AT LAST OP VISIT: reports we went up to 15mg Lexapro: I think I'm a little more under control with the emotions. Sometimes I feel fatigued. Sometimes I feel like I want to go back to bed. A/P: experiencing improvement since the increase in Lexapro to 15mg daily. Only significant complaint is lethargy. She asks about trying a low dose of a stimulant. I told her I am not comfortable doing so at this time due to recent elevated BP readings and asked her to address this with her PCP. I did suggest she try using light therapy to help with winter blues. PRESENTING SYMPTOMS AND CONDITION ON TODAY'S VISIT: reports I've been taking the medication regularly in the evening. I'm having some fatigue during the day. I've been pushing through. I'm doing counseling weekly. My emotions are more under control than they were. REVIEW OF SYSTEMS MENTAL HEALTH: SLEEP: good, occasional DFA MOOD: not as emotional crying as I was, more upbeat PTSD symptoms: up and down, some things pop up, bring up memories on occasion occurs a few times a week may last a day or so , no longer a daily issue, feels it is lessened ANXIETY: improved ANGER/IRRITABILITY/AGGRESSION: Denies SUBSTANCE USE: Alcohol: rare Illegal/non-prescribed drugs: denies TOBACCO: Non-smoker RAJIV/HYPOMANIA: None evident PSYCHOTIC FEATURES: None evident Suicidal Thoughts/Intent/plan: denied Social Status/ Stressors: work is busy, kids CURRENT PSYCH meds: Lexapro 15mg daily ADVERSE EFFECTS: fatigue MED REC: on new meds for GI and allergies (in CPRS), On Embrel lowers my immune system VS: 09/16/2024 09:09 97.5 97 16 118/64 61 144 BMI 27 MENTAL STATUS EXAMINATION - Appearance and behavior: Appears stated age, appropriately groomed and dressed, pleasant and cooperative - Speech and language: without impairment of rate, rhythm, inflection, volume, or fluency, without latency - Mood: as noted above - Affect: without lability or agitation, not constricted - Thought Process: Linear, logical; no [...] CONDITION AND OVERALL PROGRESS TOWARD TREATMENT GOALS: Lannon is still experiencing improvement since the increase in Lexapro to 15mg daily. Only significant complaint is lethargy. I am still reluctant to try her on a stimulant as her BP and Pulse readings do not remain wnl. No changes made at this time. i. Severity of Illness: ()none [...] counseling needs: n/a 5. Considered referral to inpatient/[facility] care: n/a 6. Considered referral nutrition program for any lifestyle/dietary needs: n/a 7. Follow-up plans; patient is scheduled for a follow-up appointment with a new provider in: 12 weeks, sooner if needed Additional Follow-Up instructions: 1. Reinforced: If urgent treatment is needed, call [phone] or go to the nearest Emergency Room 2. To schedule or change an appointment, inquire about medication refills, etc: call office number during normal office hours Diagnoses: History of dysthymia ([facility] [id number]) - Dysthymic disorder (ICD-10-CM F34.1) (Primary) Chronic post-traumatic stress disorder ([facility] [id number]) - Post-traumatic stress disorder, chronic (ICD-10-CM F43.12) /es/ JENNIFER PALUMBO M.D. Signed: 09/24/2024 11:49 JENNIFER PALUMBO [facility]
--- OUTSIDE RECORDS SUMMARY | 2024-10-08 09:00 | XMS_ITS | Encounter Summary ---
Author Name [facility] [place] Organization [facility] [place] [facility] [place] Address [address] [place] [address] Care Team Providers Care Funder Name Role Phone TRINH FRANCO Primary Care [...] Patient's Relationship to Policy [employer] ([phone]) PRESCRIPT [facility]ON [facility] Jun 07, 2022 [id number] Jel[address] ALVAREZ PATIENT Selected Encounter This section includes the information on record at [place] for the Encounter. Date/Time Encounter Type Encounter Description Reason Provider Source Oct 08, 2024 01:00 PM PSYTX W PT 45 MINUTES [facility] - IND ICD-10-CM F43.12 Post-traumatic stress disorder, chronic CAMPONOGARA,SA LIYAH E Encounter Template Text not used by [place] Assessments - Encounter Diagnoses This section includes the primary and secondary diagnoses documented for the Encounter. Date/Time Primary/Secondary Diagnosis Diagnosis Name Provider Source Oct 08, 2024 04:06 PM PRIMARY Post-traumatic stress disorder, chronic CAMPONOGARA,SA LIYAH [facility] [place] [facility] Oct 08, 2024 04:06 PM SECONDARY Major depressive disorder, recurrent, moderate CAMPONOGARA,SA LIYAH [facility] [place] [facility] Plan of Treatment: Future Appointments (+ 6 months) and Future Tests (+/- 45 days) The Plan of Treatment section includes future care activities for the patient from all [place] treatmentfacilities. This section includes future appointments and future orders which are active, pending or scheduled. Future Appointments This section includes appointments that were scheduled to occur 6 months from the date of the Encounter, up to a maximum of 20 appointments. The data comes from all [place] treatment facilities. Appointment Date/Time Appointment Type Appointme nt Facility Name October 29, 2024 01:00 PM AMBULATORY - [facility]CHIATRY [facility] [place] [facility] November 05, 2024 01:00 PM AMBULATORY - PS[facility]IATRY [facility] [place] [facility] November 12, 2024 01:00 PM AMBULATORY - PS[facility]CHIATRY [facility] [place] [facility] November 19, 2024 01:00 PM AMBULATORY - PS[facility]CHIATRY [facility] [place] [facility] Dec 10, 2024 01:00 PM AMBULATORY - PS[facility]CHIATRY [facility] [place] [facility] Dec 17, 2024 01:00 PM AMBULATORY - PS[facility]CHIATRY [facility] [place] [facility] Dec 22, 2024 10:15 AM AMBULATORY - MEDICINE [facility] [place] [facility] Dec 23, 2024 01:30 PM AMBULATORY - MEDICINE [facility] [place] [facility] Dec 31, 2024 01:00 PM AMBULATORY - PS[facility]CHIATRY [facility] [place] [facility] Jan 04, 2025 10:00 AM AMBULATORY - MEDICINE [facility] [place] [facility] Jan 28, 2025 08:00 AM AMBULATORY - MEDICINE [facility] [place] [facility] Jan 28, 2025 02:00 PM AMBULATORY - PS[facility]CHIATRY [facility] [place] [facility] Jan 28, 2025 02:00 PM AMBULATORY [place] [facility] Jan 31, 2025 03:00 PM AMBULATORY - PS[facility]CHIATRY [facility] [place] [facility] Feb 03, 2025 08:00 AM AMBULATORY - MEDICINE [facility] [place] [facility] Feb 16, 2025 03:00 PM [facility] Feb 22, 2025 02:00 PM [facility] Feb 28, 2025 03:00 PM [facility] Mar 29, 2025 01:00 PM [facility] Social History: Smoking Status (Most current) and Tobacco Use (All prior to encounter date) This section includes the most current, and the historical, smoking and tobacco- related health factors from the [place] facility where the Encounter took place. Current Smoking Status This section includes the most current smoking, or tobacco-related health factor, from the [place] facility where the Encounter took place. Date/Time Current Smoking Status Comment Facil ity May 14, 2024 01:00 PM VA-TOBACCO NEVER U SED CIGARETTES [facility] Tobacco Use History This section includes a history of the smoking, or tobacco-related health factors, that were collected on or before the date of the Encounter. The data comes from the [place] facility where the Encounter took place. Date/Time Smoking Status/Tobacco Use Comment F acility May 14, 2024 01:00 PM VA-TOBACCO NEVER U SED OTHER TYPE [facility] Advance Directives: All historical and current Section Date Range: From patient's date of to the date document was created. This section includes ALL of a patient's completed or amended VA Advance and Rescinded Directives. The entries below indicate that a directive exists for the patient, but an actual copy is not included with this document. The data comes from all [place] facilities. Date Advance Directives Provider Source Mar 25, 2023 ADVANCE DIRECTIVE PETROS MOTLEY [facility] Encounter Notes: All associated encounter notes This section contains the clinical notes associated to the Encounter. Date/Time Encounter Note(s) Provider Source Oct 08, 2024 02:56 PM MENTAL HEALTH NOTE: LOCAL TITLE: CBT DEPRESSION THERAPY NOTE STANDARD TITLE: MENTAL HEALTH NOTE DATE OF NOTE: OCT 08, 2024@14:56 ENTRY DATE: OCT 08, 2024@14:56:37 AUTHOR: AZALEA RODRIGUEZ COSIGNER: URGENCY: STATUS: COMPLETED [facility] Video Connect (VVC) Standard Documentation [facility] Clinician Resources Only: E911 (Emergency Call Relay Center): [phone] National Veterans Crisis Line - 988 then press #1. DAVID Suicide Coordinator [phone], Ext. [phone]; Back-up Ext. [phone] [place] , Kassandra HERNANDEZ [phone] Introduction: Visit is being conducted by [place] Video Connect. Benezett identified with 2 identifiers: [X] Full Name [X] Date of [ ] VA ID Card Emergency Plan: confirmed and/or provided the following information in case of emergency or technology failure. PATIENT PHONE - PHONE NUMBER [CELLULAR] - Is patient phone number correct, if not, enter below: Benezett's phone number: JAYLAN ALVAREZ [address], [place], [address] 's present location and address for appointment: see chart 's emergency contact name and phone number: see chart reported that location is private and safe: Yes Informed Consent: informed of the risks and benefits of Telehealth video care. has the right to refuse video services. If refuses video visit, a rjgb-go-juud visit will be scheduled. verbalized consent for [...] conducting effective and ethical psychotherapy. SESSION NUMBER: 12 DIAGNOSIS: Major Depressive Disorder, Moderate, Recurrent Secondary (if applicable): PTSD, Chronic MENTAL STATUS/BEHAVIORAL OBSERVATIONS was on time to the appointment and dressed appropriate to context. She was dressed appropriate to the context. Benezett was oriented x4, and her thought process was linear, logical, and coherent. She described her mood as tired and her affect was expressive, stable, and consistent with stated mood. Speech and motor activity fell within normal limits. Benezett was polite, cooperative, and engaged. denied suicidal and homicidal ideation, plan, and intent. ASSESSMENT Date Instrument Raw Trans Scale 10/08/2024 12:33 PHQ9 18 PHQ9 09/10/2024 13:00 PHQ9 21 PHQ9 08/27/2024 12:31 [...] what was learned from the homework assessment. reported that she did not complete any homework assignments but has been more aware of her thoughts and has practiced challenging them internally (but did not write it down). We problem-solved barriers to engaging in thought records. PRIORITIZED AGENDA The therapist and Benezett collaboratively developed a prioritized agenda. COGNITIVE STRATEGIES: The following cognitive strategies were discussed during the session: Therapist employed the Guided Discovery method when incorporating cognitive and/or behavioral strategies Nash reported that she has applied to another job within the company. She noticed the automatic belief that she will be rejected again. Nash was encouraged to explore the underlying core belief and identified: There must be something wrong with me which triggers her to try to improve herself via over- working, taking on extra courses, trainings and certifications, and seeking feedback to improve herself. Nash noticed that this is a common pattern in her life of not wanting to be stagnant or complacent, and feeling that something is wrong with her, and pushing herself to be better. She also explored how following rules rigidly is another compensatory strategy. added that it makes it difficult for her to understand why others do not try to better themselves more or why they do not follow the same code of conduct she does. 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 She described him as reliable, integrity, always pushing himself to make others happy. This leader writer noted that this is the opposite of how she describes many individuals in her life. COLLABORATIVE HOMEWORK ASSIGNMENT: The homework assignment for this session was: thought record focused on negative beliefs about self The homework assignment and goal of the assignment was written down. The therapist inquired about Benezett's understanding of the homework assignment and its rationale. Therapist and Benezett discussed the likelihood that the will do the homework. FINAL SUMMARY AND FEEDBACK: is interested to consider whether her thoughts vary significantly while she is out of her routine contexts (work and home), as she is going on vacation. PLAN Next session planned for agreed upon date/time of: Fri 1pm 50 min continue CBT-D in two weeks /mat/ Azalea Rodriguez Psy.D. SEXUAL TRAUMA/WOMEN'S PSYCHOLOGIST Signed: 10/08/2024 16:06 AZALEA RODRIGUEZ [place] [facility] [place] [facility] Oct 08, 2024 12:55 PM MENTAL HEALTH DIAGNOSTIC STUDY NOTE: LOCAL TITLE: MENTAL HEALTH DIAGNOSTIC STUDY STANDARD TITLE: MENTAL HEALTH DIAGNOSTIC STUDY NOTE DATE OF NOTE: OCT 08, 2024@12:55:55 ENTRY DATE: OCT 08, 2024@12:55:55 AUTHOR: AZALEA RODRIGUEZ EXP COSIGNER: URGENCY: STATUS: COMPLETED Assessments were sent to the Benezett via text/email. These assessments were completed by JAYLAN ALVAREZ on their own device on 10/08/2024 12:33:21 PM. PATIENT HEALTH QUESTIONNAIRE-9 (PHQ-9) The patient [...] others. PHQ-9 Total Score (past 180 days): 10/08/2024 18 09/10/2024 21 08/27/2024 24 08/20/2024 24 08/13/2024 [...] Quite a bit 6. Avoiding internal reminders: Extremely 7. Avoiding external reminders: Extremely 8. Trouble with recall: Quite a bit 9. Negative beliefs: Extremely 10. Blaming self/others: Quite a bit 11. Negative feelings: Extremely 12. Loss of interest: Extremely 13. Feeling distant from others: Extremely 14. Feeling numb: Extremely 15. Feeling irritable: Extremely 16. Reckless behavior: Quite a bit 17. Being super-alert : Extremely 18. Feeling easily startled: Quite a bit 19. Difficulty concentrating: Extremely 20. Trouble sleeping: Extremely PCL-5 total score = 70 This measure assesses an individual's perception of [...] PCL-5 Weekly Total Score (past 180 days): 10/08/2024 70 09/10/2024 60 08/27/2024 66 08/20/2024 74 08/13/2024 44 07/30/2024 60 07/23/2024 56 07/16/2024 55 07/09/2024 65 07/02/2024 51 06/18/2024 Kevin /mat/ Azalea TatumDKitty SEXUAL TRAUMA/WOMEN'S PSYCHOLOGIST Signed: 10/08/2024 14:56 AZALEA RODRIGUEZ [facility] [place] [facility]
--- OUTSIDE RECORDS SUMMARY | 2024-11-05 09:00 | XMS_ITS | Encounter Summary ---
Author Name [facility] [place] Organization [place] Address [address] [place] [address] Care Team Providers Care Golf Cart Attendant Name Role Phone TRINH FRANCO Primary Care [...] Patient's Relationship to Policy [employer] ([phone]) [facility] Jun 07, 2022 [id number] ALVAREZ PATIENT Selected Encounter This section includes the information on record at [place] for the Encounter. Date/Time Encounter Type Encounter Description Reason Provider Source November 05, 2024 01:00 PM PSYTX W PT 45 MINUTES [facility] - IND ICD-10-CM F33.1 Major depressive disorder, recurrent, moderate CAMPONOGARA,SA LIYAH E Encounter Template Text not used by [place] Assessments - Encounter Diagnoses This section includes the primary and secondary diagnoses documented for the Encounter. Date/Time Primary/Secondary Diagnosis Diagnosis Name Provider Source November 05, 2024 02:54 PM PRIMARY Major depressive disorder, recurrent, moderate CAMPONOGARA,SA LIYAH [place] [facility] [place] [facility] November 05, 2024 02:54 PM SECONDARY Post-traumatic stress disorder, chronic CAMPONOGARA,SA LIYAH [facility] [place] [facility] Plan of Treatment: Future Appointments (+ 6 months) and Future Tests (+/- 45 days) The Plan of Treatment section includes future care activities for the patient from all [place] treatmentfacilities. This section includes future appointments and future orders which are active, pending or scheduled. Future Appointments This section includes appointments that were scheduled to occur 6 months from the date of the Encounter, up to a maximum of 20 appointments. The data comes from all [place] treatment facilities. Appointment Date/Time Appointment Type Appointme nt Facility Name November 12, 2024 01:00 PM AMBULATORY - PS[facility]CHIATRY [facility] [place] [facility] November 19, 2024 01:00 PM AMBULATORY - PSYCHIATRY [facility] [place] [facility] Dec 10, 2024 01:00 PM AMBULATORY - PS[facility]CHIATRY [facility] [place] [facility] Dec 17, 2024 01:00 PM AMBULATORY - PS[facility]CHIATRY [facility] [place] [facility] Dec 22, 2024 10:15 AM AMBULATORY - MEDICINE [facility] [place] [facility] Dec 23, 2024 01:30 PM AMBULATORY - MEDICINE [facility] [place] [facility] Dec 31, 2024 01:00 PM AMBULATORY - PS[facility]CHIATRY [facility] [place] [facility] Jan 04, 2025 10:00 AM AMBULATORY - MEDICINE [facility] [place] [facility] Jan 28, 2025 08:00 AM AMBULATORY - MEDICINE [facility] [place] [facility] Jan 28, 2025 02:00 PM AMBULATORY - PS[facility]CHIATRY [facility] [place] [facility] Jan 28, 2025 02:00 PM [place] [facility] Jan 31, 2025 03:00 PM AMBULATORY - PSYCHIATRY [facility] [place] [facility] Feb 03, 2025 08:00 AM AMBULATORY - MEDICINE [facility] [place] [facility] Feb 16, 2025 03:00 PM AMBULATORY - PSYCHIATRY [facility] [place] [facility] Feb 22, 2025 02:00 PM AMBULATORY - PS[facility]CHIATRY [facility] [place] [facility] Feb 28, 2025 03:00 PM AMBULATORY - PSYCHIATRY [facility] Mar 29, 2025 01:00 PM AMBULATORY - MEDICINE [facility] Apr 21, 2025 03:30 PM AMBULATORY - MEDICINE [facility] Social History: Smoking Status (Most current) and Tobacco Use (All prior to encounter date) This section includes the most current, and the historical, smoking and tobacco- related health factors from the [place] facility where the Encounter took place. Current Smoking Status This section includes the most current smoking, or tobacco-related health factor, from the [place] facility where the Encounter took place. Date/Time Current Smoking Status Comment Facil ity May 14, 2024 01:00 PM VA-TOBACCO NEVER U SED CIGARETTES [facility] Tobacco Use History This section includes a history of the smoking, or tobacco-related health factors, that were collected on or before the date of the Encounter. The data comes from the [place] facility where the Encounter took place. Date/Time Smoking Status/Tobacco Use Comment F acility May 14, 2024 01:00 PM VA-TOBACCO NEVER U SED OTHER TYPE [facility] Advance Directives: All historical and [...] Date/Time Encounter Note(s) Provider Source November 05, 2024 02:45 PM MENTAL HEALTH NOTE: LOCAL TITLE: CBT DEPRESSION THERAPY NOTE STANDARD TITLE: MENTAL HEALTH NOTE DATE OF NOTE: NOVEMBER 05, 2024@14:45 ENTRY DATE: NOVEMBER 05, 2024@14:45:09 AUTHOR: ROBERT RODRIGUEZ COSIGNER: URGENCY: STATUS: COMPLETED [facility] Video Connect ([facility]) Standard Documentation [facility] Clinician Resources Only: E911 (Emergency Call Relay Center): [phone] National Veterans Crisis Line - 988 then press #1. [place] Suicide Coordinator [phone], Ext. [phone]; Back-up Ext. [phone] [place] Police, Kassandra HERNANDEZ [phone] Introduction: Visit is being conducted by [place] Video Connect. Austin identified with 2 identifiers: [X] Full Name [X] Date of [ ] VA ID Card Emergency Plan: confirmed and/or provided the following information in case of emergency or technology failure. PATIENT PHONE - PHONE NUMBER [CELLULAR] - Is patient phone number correct, if not, enter below: 's phone number: JAYLAN ALVAREZ [address], [place], [address] Austin's present location and address for appointment: see chart Austin's emergency contact name and phone number: see chart reported that location is private and safe: Yes Informed Consent: Austin informed of the risks and benefits of Telehealth video care. has the right to refuse video services. If refuses video visit, a [id number]-ok-[id number] visit will be scheduled. verbalized consent for this video visit: Yes Austin provided consent for any other persons present [...] conducting effective and ethical psychotherapy. SESSION NUMBER: 13 DIAGNOSIS: Major Depressive Disorder, Moderate, Recurrent Secondary (if applicable): PTSD, Chronic MENTAL STATUS/BEHAVIORAL OBSERVATIONS Austin was on time to the appointment and dressed appropriate to context. She was dressed appropriate to the context. Austin was oriented x4, and her thought process was linear, logical, and coherent. She described her mood as depressed and her affect was expressive, stable, and consistent with stated mood. Speech and motor activity fell within normal limits. was polite, cooperative, and engaged. denied suicidal and homicidal ideation, plan, and intent. ASSESSMENT Date Instrument Raw Trans Scale 11/05/2024 12:59 PHQ9 24 PHQ9 10/08/2024 12:33 PHQ9 18 PHQ9 09/10/2024 13:00 [...] ASSESSMENT SCORES FROM EARLIER ADMINISTRATIONS: Nash reported an increase in symptoms due to reduced activity and more lethargy in the past few weeks. She explained that she had the flu and since then has felt unmotivated to be more active. This was explored further in session. SESSION CONTENT: In this middle phase session of Cognitive Behavioral Therapy (CBT) for depression, the following therapeutic activities were performed: BRIDGE FROM LAST SESSION Therapist inquired about what the found important or helpful from the last session and if the Austin had any concerns about the last session. Therapist inquired about the degree to which the homework was completed and what was learned from the homework assessment. PRIORITIZED AGENDA The therapist and Austin collaboratively developed a prioritized agenda. BEHAVIORAL STRATEGIES: The following behavioral strategies were discussed during the session: Identified Pleasant or Meaningful Activities Activity Scheduling Austin reported that she had the intention to engage in various pleasurable activities this past week but ultimately did not. Barriers including: falling asleep on the couch, not having anyone to go with, and waiting on her boyfriend to possibly go. Nash reported that when she has no one to do activities with, she feels lonely. She indicated that she enjoys exercise and outdoor activities even if no one is with her, but, as she has aged, she has felt the absence of company more. We discussed how her social ione is quite small and unreliable (i.e., her boyfriend's work schedule, her teenage daughter naps in the afternoons and has other activities). In addition, considered what helped her engage in behavioral activation when motivation was low earlier in this treatment episode. She noted that not laying in bed or on the couch during the day, not waiting on others to go do the activity, and remembering that she will enjoy it once she starts were all helpful strategies. She plans to implement these this week as well. Other contributors to her depressed mood included: realizing she likely did not get the job, and some miscommunications with her boyfriend. COGNITIVE STRATEGIES: The following cognitive strategies were discussed during the session: Modified Dysfunctional Automatic Thoughts Examined the evidence Therapist employed the Guided Discovery method when incorporating cognitive and/or behavioral strategies COLLABORATIVE HOMEWORK ASSIGNMENT: The homework assignment for this session was: behavioral activation The homework assignment and goal of the assignment was written down. The therapist inquired about Austin's understanding of the homework assignment and its rationale. Therapist and discussed the likelihood that the Austin will do the homework. Specific roadblocks or challenges for doing the homework were discussed. FINAL SUMMARY AND FEEDBACK: Austin agreed that continuing to address feelings of loneliness and building up a support network is important to her. PLAN Next session planned for agreed upon date/time of: Fri 1pm [facility] Additional notes regarding scheduling or plan: continue CBT-D /es/ Robert Rodriguez Psy.D. SEXUAL TRAUMA/WOMEN'S PSYCHOLOGIST Signed: 11/05/2024 14:54 ROBERT RODRIGUEZ [place] [facility] [place] [facility] November 05, 2024 01:01 PM MENTAL HEALTH DIAGNOSTIC STUDY NOTE: LOCAL TITLE: MENTAL HEALTH DIAGNOSTIC STUDY STANDARD TITLE: MENTAL HEALTH DIAGNOSTIC STUDY NOTE DATE OF NOTE: NOVEMBER 05, 2024@13:01:19 ENTRY DATE: NOVEMBER 05, 2024@13:01:20 AUTHOR: ROBERT RODRIGUEZ EXP COSIGNER: URGENCY: STATUS: COMPLETED Assessments were sent to the Austin via text/email. These assessments were completed by JAYLAN ALVAREZ on their own device on 11/05/2024 12:59:29 PM. PATIENT HEALTH QUESTIONNAIRE-9 (PHQ-9) The patient [...] others. PHQ-9 Total Score (past 180 days): 11/05/2024 24 10/08/2024 18 09/10/2024 21 08/27/2024 24 08/20/2024 [...] physical symptoms: Moderately 6. Avoiding internal reminders: Extremely 7. Avoiding external reminders: Quite a bit 8. Trouble with recall: Quite a bit 9. Negative beliefs: Quite a bit 10. Blaming self/others: Quite a bit 11. Negative feelings: Extremely 12. Loss of interest: Extremely 13. Feeling distant from others: Extremely 14. Feeling numb: Extremely 15. Feeling irritable: Extremely 16. Reckless behavior: A little bit 17. Being super-alert : Extremely 18. [...] PCL-5 Weekly Total Score (past 180 days): 11/05/2024 66 10/08/2024 70 09/10/2024 60 08/27/2024 66 08/20/2024 74 08/13/2024 44 07/30/2024 60 07/23/2024 56 07/16/2024 55 07/09/2024 65 07/02/2024 51 06/18/2024 49 /mat/ Robert Rodriguez PsrikyDKitty SEXUAL TRAUMA/WOMEN'S PSYCHOLOGIST Signed: 11/05/2024 14:44 ROBERT RODRIGUEZ [facility] [place] [facility]
--- OUTSIDE RECORDS SUMMARY | 2024-11-12 09:00 | XMS_ITS | Encounter Summary ---
Author Name [facility] [place] Organization [place] Address [address] [place] [address] Care Team Providers Care Booking Officer Name Role Phone TRINH FRANCO Primary Care [...] Patient's Relationship to Policy [facility] [employer] ([phone]) PRESCRIPT ION [facility] Jun 07, 2022 [id number] PATIENT Selected Encounter This section includes the information on record at [place] for the Encounter. Date/Time Encounter Type Encounter Description Reason Provider Source November 12, 2024 01:00 PM PSYTX W PT 45 MINUTES [facility] - IND ICD-10-CM F33.1 Major depressive disorder, recurrent, moderate CAMPONOGARA,SA LIYAH E Encounter Template Text not used by [place] Assessments - Encounter Diagnoses This section includes the primary and secondary diagnoses documented for the Encounter. Date/Time Primary/Secondary Diagnosis Diagnosis Name Provider Source November 12, 2024 02:57 PM PRIMARY Major depressive disorder, recurrent, moderate CAMPONOGARA,SA LIYAH [place] [facility] [place] [facility] November 12, 2024 02:57 PM SECONDARY Post-traumatic stress disorder, chronic CAMPONOGARA,SA LIYAH [facility] [place] [facility] Plan of Treatment: Future Appointments (+ 6 months) and Future Tests (+/- 45 days) The Plan of Treatment section includes future care activities for the patient from all [place] treatmentfacilities. This section includes future appointments and future orders which are active, pending or scheduled. Future Appointments This section includes appointments that were scheduled to occur 6 months from the date of the Encounter, up to a maximum of 20 appointments. The data comes from all [place] treatment facilities. Appointment Date/Time Appointment Type Appointme nt Facility Name November 19, 2024 01:00 PM AMBULATORY - PSYCHIATRY [facility] [place] [facility] Dec 10, 2024 01:00 PM AMBULATORY - PSYCHIATRY [facility] [place] [facility] Dec 17, 2024 01:00 PM AMBULATORY - PSYCHIATRY [facility] [place] [facility] Dec 22, 2024 10:15 AM AMBULATORY - MEDICINE [facility] [place] [facility] Dec 23, 2024 01:30 PM AMBULATORY - MEDICINE [facility] [place] [facility] Dec 31, 2024 01:00 PM AMBULATORY - PSYCHIATRY [facility] [place] [facility] Jan 04, 2025 10:00 AM AMBULATORY - MEDICINE [facility] [place] [facility] Jan 28, 2025 08:00 AM AMBULATORY - MEDICINE [facility] [place] [facility] Jan 28, 2025 02:00 PM AMBULATORY - PSYCHIATRY [facility] [place] [facility] Jan 28, 2025 02:00 PM AMBULATORY - [place] [facility] Jan 31, 2025 03:00 PM AMBULATORY - PSYCHIATRY [facility] [place] [facility] Feb 03, 2025 08:00 AM AMBULATORY - MEDICINE [facility] [place] [facility] Feb 16, 2025 03:00 PM AMBULATORY - PSYCHIATRY [facility] [place] [facility] Feb 22, 2025 02:00 PM AMBULATORY - PSYCHIATRY [facility] [place] [facility] Feb 28, 2025 03:00 PM AMBULATORY - PSYCHIATRY [facility] [place] [facility] Mar 29, 2025 01:00 PM AMBULATORY - MEDICINE [facility] Apr 21, 2025 03:30 PM AMBULATORY - MEDICINE [facility] Active, Pending, and Scheduled Orders This section includes a listing of several types of active, pending, and scheduled orders, including clinic medications orders, diagnostic test orders, procedure orders and consult orders; where the start date of the order is 45 days before the date of the Encounter or 45 days after the date of theEncounter. The data comes from all [place] treatment facilities. Test Date/Time Test Type Test Details Facility Name Dec 27, 2024 04:40 PM Consult Order COMMUNITY CARE-MAMMOGRAPHY FEMALE SCREEN Cons Human Resource Statistician's Choice [facility] Social History: Smoking Status (Most current) and Tobacco Use (All prior to encounter date) This section includes the most current, and the historical, smoking and tobacco- related health factors from the [place] facility where the Encounter took place. Current Smoking Status This section includes the most current smoking, or tobacco-related health factor, from the [place] facility where the Encounter took place. Date/Time Current Smoking Status Comment Facil ity May 14, 2024 01:00 PM VA-TOBACCO NEVER U SED OTHER TYPE [facility] Tobacco Use History This section includes a history of the smoking, or tobacco-related health factors, that were collected on or before the date of the Encounter. The data comes from the [place] facility where the Encounter took place. Date/Time Smoking Status/Tobacco Use Comment F acility May 14, 2024 01:00 PM AL-TOBACCO NEVER U SED OTHER TYPE [facility] Advance Directives: All historical and current Section Date Range: From patient's date of to the date document was created. This section includes ALL of a patient's completed or amended [place] Advance and Rescinded Directives. The entries below indicate that a directive exists for the patient, but an actual copy is not included with this document. The data comes from all [place] facilities. Date Advance Directives Provider Source Mar 25, 2023 ADV[facility]IVE [facility] Encounter Notes: All associated encounter notes This section contains the clinical notes associated to the Encounter. Date/Time Encounter Note(s) Provider Source November 16, 2024 08:13 AM MENTAL HEALTH DIAGNOSTIC STUDY NOTE: [facility] TITLE: MENTAL HEALTH DIAGNOSTIC STUDY STANDARD TITLE: MENTAL HEALTH DIAGNOSTIC STUDY NOTE DATE OF NOTE: NOVEMBER 16, 2024@08:13:28 ENTRY DATE: NOVEMBER 16, 2024@08:13:28 AUTHOR: ROBERT RODRIGUEZ COSIGNER: URGENCY: STATUS: COMPLETED Assessments were sent to the via text/email. These assessments were completed by JAYLAN ALVAREZ on their own device on 11/12/2024 10:30:41 PM. PATIENT HEALTH QUESTIONNAIRE-9 (PHQ-9) The patient reported symptoms consistent with a major depressive episode. Patient reported being bothered by the following over the last 2 weeks: 1. Little interest or pleasure: Nearly every day 2. Feeling down, depressed or hopeless: Nearly every day 3. Trouble sleeping: More than half the [...] others. PHQ-9 Total Score (past 180 days): 11/12/2024 23 11/05/2024 24 10/08/2024 18 09/10/2024 21 08/27/2024 24 08/20/2024 24 08/13/2024 14 07/30/2024 18 07/23/2024 18 07/16/2024 23 07/09/2024 23 07/02/2024 13 06/18/2024 21 PTSD CHECKLIST (PCL-5) - WEEKLY Patient reported being bothered by the following over the past week: 1. Disturbing memories: Extremely 2. Disturbing dreams: Extremely 3. Re-experiencing events: Extremely 4. Cued distress: Quite a bit 5. Cued physical symptoms: Quite a bit 6. Avoiding internal reminders: Quite a bit 7. Avoiding external reminders: Extremely 8. Trouble with recall: Extremely 9. Negative beliefs: Extremely 10. Blaming self/others: Extremely 11. Negative feelings: Extremely 12. Loss of interest: Extremely 13. Feeling distant from others: Extremely 14. Feeling numb: Extremely 15. Feeling irritable: Extremely 16. Reckless behavior: Moderately 17. Being super-alert : Quite a bit 18. Feeling easily startled: Moderately 19. Difficulty concentrating: Extremely 20. Trouble sleeping: Quite a bit PCL-5 total score = 71 This measure assesses an individual's perception of [...] PCL-5 Weekly Total Score (past 180 days): 11/12/2024 71 11/05/2024 66 10/08/2024 70 09/10/2024 60 08/27/2024 66 08/20/2024 74 08/13/2024 44 07/30/2024 60 07/23/2024 56 07/16/2024 55 07/09/2024 65 07/02/2024 51 06/18/2024 49 /es/ Robert Rodriguez Psy.D. SEXUAL TRAUMA/WOMEN'S PSYCHOLOGIST Signed: 11/16/2024 08:22 ROBERT RODRIGUEZ [place] [facility] [place] [facility] November 12, 2024 01:09 PM MENTAL HEALTH NOTE: LOCAL TITLE: CBT DEPRESSION THERAPY NOTE STANDARD TITLE: MENTAL HEALTH NOTE DATE OF NOTE: NOVEMBER 12, 2024@13:09 ENTRY DATE: NOVEMBER 12, 2024@13:09:53 AUTHOR: ROBERT RODRIGUEZ EXP COSIGNER: URGENCY: STATUS: COMPLETED [facility] Video Connect ([facility]VC) Standard Documentation VVC Clinician Resources Only: E911 (Emergency Call Relay Center): [phone] [place] [facility] Crisis Line - 988 then press #1. [place] Suicide Coordinator [phone], Ext. [phone]; Back-up Ext. [phone] [place] Police, Kassandra HERNANDEZ [phone] Introduction: Visit is being conducted by [place] [employer]. Amelia identified with 2 identifiers: [X] Full Name [X] Date of [ ] [place] ID Card Emergency Plan: Amelia confirmed and/or provided the following information in case of emergency or technology failure. PATIENT PHONE - PHONE NUMBER [CELLULAR] - Is patient phone number correct, if not, enter below: Amelia's phone number: JAYLAN ALVAREZ [address], [place], [address] 's present location and address for appointment: see chart 's emergency contact name and phone number: see chart reported that location is private and safe: Yes Informed Consent: informed of the risks and benefits of Telehealth video care. Amelia has the right to refuse video services. If refuses video visit, a [id number]-[id number]-oswv visit will be scheduled. Amelia verbalized consent for this video visit: Yes Amelia provided consent for any other persons present for visit: N/A If yes, who and relationship to patient: Secure visit: Visit was locked for security and privacy:Yes --------- COGNITIVE BEHAVIORAL THERAPY FOR DEPRESSION (CBT-D): MIDDLE PHASE Time in session (in minutes): 50. SESSION NUMBER: 14 DIAGNOSIS: Major Depressive Disorder, Moderate, Recurrent Secondary (if applicable): PTSD, Chronic MENTAL STATUS/BEHAVIORAL OBSERVATIONS Nash notified this principal technical writer earlier in the day that she might be late for the appointment as she was at work. She was about 20 minutes late, stating that her lunch break was delayed. She was dressed appropriate to the context. Amelia was oriented x4, and her thought process was linear, logical, and coherent. She described her mood as depressed and her affect was expressive, stable, and consistent with stated mood. Speech and motor activity fell within normal limits. was polite, cooperative, and engaged. Amelia denied suicidal and homicidal ideation, plan, and [...] from the last session and if the Amelia had any concerns about the last session. Therapist inquired about the degree to which the homework was completed and what was learned from the homework assessment. PRIORITIZED AGENDA The therapist and collaboratively developed a prioritized agenda. BEHAVIORAL STRATEGIES: The following behavioral strategies were discussed during the session: Identified Pleasant or Meaningful Activities Activity Scheduling Amelia reported that she engaged in physical activity daily, except for Fri- Fri, where she slept until noon or so. She reported hypersomnia that made it difficult to stay awake as the primary barrier to being more active on those days. Amelia denied changes to medication, diet, and sleep schedule that could have contributed to her hypersomnia. She reported that she was tested for sleep disorders a few years ago but did not have any. The last time she felt the excessive daytime sleepiness was two months ago. She stated that on morning, she changed this pattern and offered to do over-time at work or go to yoga. She did the same today. Nash reported that her yoga event went well. She stated that two individuals have not spoken to her since she declined their assistance with the event. noted that she has not acknowledged their feelings, stating that it would take away from her happiness about the event and make it difficult to move past their feelings. She explained that she has difficulty tolerating and regulating negative feelings in general and prefers to push them away. We discussed the costs of that strategy, including fluctuations between numbness and overwhelming emotion. agreed that learning how to navigate strong feelings via CBT skills is essential first step that can then be tied back to relationships. COGNITIVE STRATEGIES: The following cognitive strategies were [...] homework were discussed. FINAL SUMMARY AND FEEDBACK: none PLAN Next session planned for agreed upon date/time of: Fri 1pm [facility] Additional notes regarding scheduling or plan: continue CBT-D /es/ Robert Rodriguez Psy.DKitty SEXUAL TRAUMA/WOMEN'S PSYCHOLOGIST Signed: 11/12/2024 14:57 ROBERT RODRIGUEZ [place] [facility]
--- OUTSIDE RECORDS SUMMARY | 2024-11-19 09:00 | XMS_ITS | Encounter Summary ---
Author Name [facility] [place] Address [address] [place] [address] Care Team Providers Care Security Operations Analyst Name Role Phone TRINH FRANCO Primary Care [...] Patient's Relationship to Policy [employer] ([phone]) PRESCRIPT ION [facility] Jun 07, 2022 [id number] J[address] ALVAREZ PATIENT Selected Encounter This section includes the information on record at [place] for the Encounter. Date/Time Encounter Type Encounter Description Reason Provider Source November 19, 2024 01:00 PM PSYTX W PT 45 MINUTES [facility] CLINIC - IND ICD-10-CM F43.12 Post-traumatic stress disorder, chronic CAMPONOGARA,SA LIYAH E Encounter Template Text not used by [place] Assessments - Encounter Diagnoses This section includes the primary and secondary diagnoses documented for the Encounter. Date/Time Primary/Secondary Diagnosis Diagnosis Name Provider Source November 19, 2024 03:50 PM PRIMARY Post-traumatic stress disorder, chronic CAMPONOGARA,SA LIYAH [facility] November 19, 2024 03:50 PM SECONDARY Major depressive disorder, recurrent, moderate CAMPONOGARA,SA LIYAH [facility] [place] [facility] Plan of Treatment: Future Appointments (+ 6 months) and Future Tests (+/- 45 days) The Plan of Treatment section includes future care activities for the patient from all [place] treatmentfacilities. This section includes future appointments and future orders which are active, pending or scheduled. Future Appointments This section includes appointments that were scheduled to occur 6 months from the date of the Encounter, up to a maximum of 20 appointments. The data comes from all [place] treatment facilities. Appointment Date/Time Appointment Type Appointme nt Facility Name Dec 10, 2024 01:00 PM AMBULATORY - PSYCHIATRY [facility] [place] [facility] Dec 17, 2024 01:00 PM AMBULATORY - PSYCHIATRY [facility] [place] [facility] Dec 22, 2024 10:15 AM AMBULATORY - MEDICINE [facility] [place] [facility] Dec 23, 2024 01:30 PM AMBULATORY - MEDICINE [facility] [place] [facility] Dec 31, 2024 01:00 PM AMBULATORY - PSYCHIATRY [facility] [place] [facility] Jan 04, 2025 10:00 AM AMBULATORY - MEDICINE [facility] [place] [facility] Jan 28, 2025 08:00 AM AMBULATORY - MEDICINE [facility] [place] [facility] Jan 28, 2025 02:00 PM AMBULATORY - PSYCHIATRY [facility] [place] [facility] Jan 28, 2025 02:00 PM AMBULATORY [place] [facility] Jan 31, 2025 03:00 PM AMBULATORY - PSYCHIATRY [facility] [place] [facility] Feb 03, 2025 08:00 AM AMBULATORY - MEDICINE [facility] [place] [facility] Feb 16, 2025 03:00 PM AMBULATORY - PSYCHIATRY [facility] [place] [facility] Feb 22, 2025 02:00 PM AMBULATORY - PSYCHIATRY [facility] [place] [facility] Feb 28, 2025 03:00 PM AMBULATORY - PSYCHIATRY [facility] [place] [facility] Mar 29, 2025 01:00 PM AMBULATORY - MEDICINE [facility] [place] [facility] Apr 21, 2025 03:30 PM AMBULATORY - MEDICINE [facility] Active, Pending, and Scheduled Orders This section includes a listing of several types of active, pending, and scheduled orders, including clinic medications orders, diagnostic test orders, procedure orders and consult orders; where the start date of the order is 45 days before the date of the Encounter or 45 days after the date of theEncounter. The data comes from all [place] treatment facilities. Test Date/Time Test Type Test Details Facility Name Dec 27, 2024 04:40 PM Consult Order COMMUNITY CARE-MAMMOGRAPHY FEMALE SCREEN Cons Security Operations Center Analyst's Choice [facility] Social History: Smoking Status (Most current) and Tobacco Use (All prior to encounter date) This section includes the most current, and the historical, smoking and tobacco- related health factors from the [place] facility where the Encounter took place. Current Smoking Status This section includes the most current smoking, or tobacco-related health factor, from the [place] facility where the Encounter took place. Date/Time Current Smoking Status Comment Facil ity May 14, 2024 01:00 PM [place]-TOBACCO NEVER [place] SED [place]ARET[place] [facility] Tobacco Use History This section includes a history of the smoking, or tobacco-related health factors, that were collected on or before the date of the Encounter. The data comes from the [place] facility where the Encounter took place. Date/Time Smoking Status/Tobacco Use Comment F acility May 14, 2024 01:00 PM [place]-TOBACCO NEVER U SED OTHER TYPE [facility] Advance Directives: All historical and current Section Date Range: From patient's date of to the date document was created. This section includes ALL of a patient's completed or amended [place] Advance and Rescinded Directives. The entries below [...] Encounter. Date/Time Encounter Note(s) Provider Source November 19, 2024 03:46 PM MENTAL HEALTH NOTE: LOCAL TITLE: CBT DEPRESSION THERAPY NOTE STANDARD TITLE: MENTAL HEALTH NOTE DATE OF NOTE: NOVEMBER 19, 2024@15:46 ENTRY DATE: NOVEMBER 19, 2024@15:46:05 AUTHOR: ROBERT RODRIGUEZ EXP COSIGNER: URGENCY: STATUS: COMPLETED [facility] Video Connect (VVC) Standard Documentation VVC Clinician Resources Only: E911 (Emergency Call Relay Center): [phone] [employer] Crisis Line - 988 then press #1. [place] Suicide Coordinator [phone], Ext. [phone]; Back-up Ext. [phone] [place] Police, [place], [place] [phone] Introduction: Visit is being conducted by [place] [employer] [facility]. [place] identified with 2 identifiers: [X] Full Name [X] Date of [ ] VA ID Card Emergency Plan: confirmed and/or provided the following information in case of emergency or technology failure. PATIENT PHONE - PHONE NUMBER [CELLULAR] - Is patient phone number correct, if not, enter below: [place]'s phone number: JAYLAN ALVAREZ [address], [place], [address] 's present location and address for appointment: see chart 's emergency contact name and phone number: see chart [place] reported that location is private and safe: Yes Informed Consent: informed of the risks and benefits of Telehealth video care. [place] has the right to refuse video services. If refuses video visit, a gcyy-ay-wamp visit will be scheduled. [place] verbalized consent for this video visit: Yes [place] provided consent for any other persons present for visit: N/A If yes, who and relationship to patient: Secure visit: Visit was locked for security and privacy:Yes --------- COGNITIVE BEHAVIORAL THERAPY FOR DEPRESSION (CBT-D): MIDDLE PHASE Time in session (in minutes): 50. SESSION NUMBER: 15 DIAGNOSIS: Major Depressive Disorder, Moderate, Recurrent Secondary (if applicable): PTSD, Chronic MENTAL STATUS/BEHAVIORAL OBSERVATIONS [place] was on time and she was dressed appropriate to the context. was oriented x4, and her thought process was linear, logical, and coherent. She described her mood as euthymic and her affect was expressive, stable, and consistent with stated mood. Speech and motor activity fell within normal limits. was polite, cooperative, and engaged. denied suicidal and homicidal ideation, plan, and intent. 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 Nash reported that she aimed to honor the service members by playing patriotic music during her yoga class and ending it with a candle lighting. She was disappointed and annoyed that only one person stayed for the candle lighting. Nash reported that her automatic thought was that people are self-centered. She stated this is a thought she often has about people. was able to identify cognitive distortions and challenge her belief. She created the alternative belief that people may not have been prepared for that in that moment and that not everyone is self-centered. [place] stated that the mood associated with this belief is neutral. COLLABORATIVE HOMEWORK ASSIGNMENT: The homework assignment for this session was: behavioral activation and thought logs The homework assignment and goal of the assignment was written down. The therapist inquired about 's understanding of the homework assignment and its rationale. Therapist and [place] discussed the likelihood that the will do the homework. Specific roadblocks or challenges for doing the homework were discussed. FINAL SUMMARY AND FEEDBACK: none PLAN Next session planned for agreed upon date/time of: Fri 1pm [facility] Additional notes regarding scheduling or plan: continue CBT-D /es/ Robert Rodriguez Pssharmila.DKitty SEXUAL TRAUMA/WOMEN'S PSYCHOLOGIST Signed: 11/19/2024 15:50 ROBERT RODRIGUEZ [place] [facility] [place] [facility] November 19, 2024 12:59 PM MENTAL HEALTH DIAGNOSTIC STUDY NOTE: LOCAL TITLE: MENTAL HEALTH DIAGNOSTIC STUDY STANDARD TITLE: MENTAL HEALTH DIAGNOSTIC STUDY NOTE DATE OF NOTE: NOVEMBER 19, 2024@12:59:28 ENTRY DATE: NOVEMBER 19, 2024@12:59:28 AUTHOR: ROBERT RODRIGUEZ EXP COSIGNER: URGENCY: STATUS: COMPLETED Assessments were sent to the [place] via text/email. These assessments were completed by JAYLAN ALVAREZ on their own device on 11/19/2024 12:52:01 PM. PATIENT HEALTH QUESTIONNAIRE-9 (PHQ-9) The patient [...] others. PHQ-9 Total Score (past 180 days): 11/19/2024 23 11/13/2024 23 11/05/2024 24 10/08/2024 18 09/10/2024 21 [...] Cued distress: Extremely 5. Cued physical symptoms: Quite a bit [...] Trouble sleeping: Extremely PCL-5 total score = 73 This measure assesses an individual's perception of [...] PCL-5 Weekly Total Score (past 180 days): 11/19/2024 73 11/13/2024 71 11/05/2024 66 10/08/2024 70 09/10/2024 60 08/27/2024 66 08/20/2024 74 08/13/2024 44 07/30/2024 60 07/23/2024 56 07/16/2024 55 07/09/2024 65 07/02/2024 51 06/18/2024 49 /es/ Robert Rodriguez Psy.D. SEXUAL TRAUMA/WOMEN'S PSYCHOLOGIST Signed: 11/19/2024 15:45 ROBERT RODRIGUEZ [facility] [place] [facility]
--- OUTSIDE RECORDS SUMMARY | 2024-11-26 09:00 | XMS_ITS ---
Author Name [facility] ([place]) Organization [facility] ([place]) Address [address] [place] [address] Care Team Providers Care Pier Master Assistant Name Role Phone TRINH FRANCO Primary Care [...] Patient's Relationship to Policy [employer] ([phone]) PRESCRIPT ION [facility] Jun 07, 2022 [id number] Jelani ALVAREZ PATIENT Selected Encounter This section includes the information on record at [place] for the Encounter. Date/Time Encounter Type Encounter Description Reason Pro vider Source Nov 26, 2024 01:00 PM Outpatient Encounter [facility] IHE Encounter Template Text not used by [place] Plan of Treatment: Future Appointments (+ 6 months) and Future Tests (+/- 45 days) The Plan of Treatment section includes future care activities for the patient from all [place] treatmentfacilities. This section includes future appointments and future orders which are active, pending or scheduled. Future Appointments This section includes appointments that were scheduled to occur 6 months from the date of the Encounter, up to a maximum of 20 appointments. The data comes from all [place] treatment facilities. Appointment Date/Time Appointment Type Appointme nt Facility Name Dec 10, 2024 01:00 PM AM[facility] [place] [facility] Dec 17, 2024 01:00 PM AMBUL[facility] [place] [facility] Dec 22, 2024 10:15 AM AMBULATORY [facility] MEDICINE [facility] [place] [facility] Dec 23, 2024 01:30 PM AMBULATORY [facility] MEDICINE [facility] [place] [facility] Dec 31, 2024 01:00 PM AMBULATORY [facility] [place] [facility] Jan 04, 2025 10:00 AM AMBULATORY [facility] MEDICINE [facility] [place] [facility] Jan 28, 2025 08:00 AM AMBULATORY [facility] MEDICINE [facility] [place] [facility] Jan 28, 2025 02:00 PM AMBULATORY [facility]IATRY [facility] [place] [facility] Jan 28, 2025 02:00 PM AMBULATORY [place] [facility] Jan 31, 2025 03:00 PM AMBULATORY [facility]IATRY [facility] [place] [facility] Feb 03, 2025 08:00 AM AMBULATORY [facility] MEDICINE [facility] [place] [facility] Feb 16, 2025 03:00 PM AMBULATORY [facility] PS[facility]IATRY [facility] [place] [facility] Feb 22, 2025 02:00 PM AMBULATORY [facility] PS[facility]IATRY [facility] [place] [facility] Feb 28, 2025 03:00 PM AMBULATORY [facility] PS[facility]IATRY [facility] [place] [facility] Mar 29, 2025 01:00 PM AMBULATORY [facility] MEDICINE [facility] [place] [facility] Apr 21, 2025 03:30 PM AMBULATORY - MEDICINE [facility] [place] [facility] Active, Pending, and Scheduled Orders This section includes a listing of several types of active, pending, and scheduled orders, including clinic medications orders, diagnostic test orders, procedure orders and consult orders; where the start date of the order is 45 days before the date of the Encounter or 45 days after the date of theEncounter. The data comes from all [place] treatment facilities. Test Date/Time Test Type Test Details Facility Name Dec 27, 2024 04:40 PM Consult Order [facility]ITY [facility]ARE-MAMMOGRAPHY FEMALE SCREEN Cons Client Account Representative's Choice [facility] [place] [facility] Jan 04, 2025 10:20 AM Consult Order [facility] SERVICE ATTENDANT Cons Client Account Representative's Choice [facility] Lab Results: +/- 30 days of the encounter This section includes the Chemistry and Hematology Lab Results on record with [place] for the patient. Radiology Reports and Pathology Reports are provided separately, in subsequent sections. Lab Results This section contains the Chemistry/Hematology Results that were resulted 30 days before or 30 daysafter the date of the Encounter. Date/Time Source Result Type Result - Unit Interpretation Reference Range Specimen Type Comment Dec 23, 2024 02:09 PM [facility] LIVER FUNCTION SERUM Specimen Type: SERUM No comment entered. Ordering Provider: LEANDRA BAEZ V Report Released Date/Time: Dec 23, 2024 01:51 PM Reporting Lab: [address] [address] Performing Lab: [address] [address] PROTEIN,TOTAL 6.9 g/dL 6.4-8.3 ALBUMIN 3.8 g/dL 3.5-5.2 ALKALINE PHOSPHATASE 51 U/L 40-150 AST 20 U/L 5-34 ALT 12 U/L 0-55 BILIRUBIN, TOTAL 0.5 mg/dL 0.2-1.2 Dec 23, 2024 02:09 PM [facility] BASIC METABOLIC PANEL (fasting) SERUM Specime n Type: SERUM No comment entered. Ordering Provider: LEANDRA BAEZ V Report Released Date/Time: Dec 23, 2024 01:51 PM Reporting Lab: [address] [address] Performing Lab: [address] [address] UREA NITROGEN 19 mg/dL 7-19 GLUCOSE 62 mg/dL L 65-100 SODIUM 138 mmol/L 136-145 POTASSIUM 4.2 mmol/L 3.5-5.1 CHLORIDE 106 mmol/L 98-107 CO2 25 meq/L 22-29 CALCIUM 8.3 mg/dL L 8.4-10.2 CREATININE, Serum 0.90 mg/dL .57-1.11 eGFR(CKD-EPI 2020) 81 mL/min >60 Dec 23, 2024 02:09 PM [facility] CBC AND DIFF (AUTO) BLOOD Specimen Type: ROSEMARIE Pittman No comment entered. Ordering Provider: LEANDRA BAEZ V Report Released Date/Time: Dec 23, 2024 01:51 PM Reporting Lab: [facility] [address] [address] Performing Lab: [facility] [address] [address] WBC 6.64 10*3/uL 4.50-11.00 RBC 4.12 10*6/uL 3.93-5.16 HGB 13.5 g/dL 12-15.2 HCT 38.8 36.6-45.6 MCV 94.2 fL 82-99 MCHC 34.8 g/dL 30.8-35.1 PLT 314 10*3/uL 140-360 MPV 9.8 fL 9.2-12.4 RDW-CV 12.1 12.0-16.0 MONO, ABS 0.47 10*3/uL 0.30-1.10 MCH 32.8 pg H 26.2-32.6 NEUT % 66.4 43.7-75.8 LYMPH % 24.2 14.0-42.3 MONO % 7.1 5.1-13.7 EOS % 1.5 0.4-6.8 BASO % 0.5 0.1-2.0 NEUT, ABS 4.41 10*3/uL 2.20-7.60 LYMPH, ABS 1.61 10*3/uL 1.00-3.20 EOS, ABS 0.10 10*3/uL 0.03-0.44 BASO, ABS 0.03 10*3/uL 0.01-0.13 IMMATURE GRAN % 0.3 0.0-0.7 IMMATURE GRAN, ABS 0.02 10*3/uL 0.00-0.0 6 NRBC % 0.0 0.0-0.0 NRBC, ABS 0.00 10*3/uL 0.00-0.00 Dec 23, 2024 02:09 PM [facility] TSH SERUM Specimen Type: SERUM No comment entered. Ordering Provider: LEANDRA BAEZ V Report Released Date/Time: Dec 23, 2024 01:51 PM Reporting Lab: [facility] [address] [phone] Performing Lab: [facility] [address] [address] TSH 1.66 u[IU]/mL 0.35-4.94 Social History: Smoking Status (Most current) and Tobacco Use (All prior to encounter date) This section includes the most current, and the historical, smoking and tobacco- related health factors from the [place] facility where the Encounter took place. Current Smoking Status This section includes the most current smoking, or tobacco-related health factor, from the [place] facility where the Encounter took place. Date/Time Current Smoking Status Comment Facil ity May 14, 2024 01:00 PM [place]-TOBACCO NEVER U SED CIGARETTES [facility] Tobacco Use History This section includes a history of the smoking, or tobacco-related health factors, that were collected on or before the date of the Encounter. The data comes from the [place] facility where the Encounter took place. Date/Time Smoking Status/Tobacco Use Comment F acility May 14, 2024 01:00 PM [place]-TOBACCO NEVER U SED OTHER TYPE [facility] Advance Directives: All historical and current Section Date Range: From patient's date of to the date document was created. This section includes ALL of a patient's completed or amended [place] Advance and Rescinded Directives. The entries below indicate that a directive exists for the patient, but an actual copy is not included with this document. The data comes from all [place] facilities. Date Advance Directives Provider Source Mar 25, 2023 [facility] Encounter Notes: All associated encounter notes This section contains the clinical notes associated to the Encounter. Date/Time Encounter Note(s) Provider Source Nov 26, 2024 01:13 PM MENTAL HEALTH DIAGNOSTIC STUDY NOTE: LOCAL TITLE: MENTAL HEALTH DIAGNOSTIC STUDY STANDARD TITLE: MENTAL HEALTH DIAGNOSTIC STUDY NOTE DATE OF NOTE: NOV 26, 2024@13:13:36 ENTRY DATE: NOV 26, 2024@13:13:36 AUTHOR: ROBERT RODRIGUEZ EXP COSIGNER: URGENCY: STATUS: COMPLETED Assessments were sent to the [place] via text/email. These assessments were completed by JAYLAN ALVAREZ on their own device on 11/26/2024 1:10:31 PM. PATIENT HEALTH QUESTIONNAIRE-9 (PHQ-9) The patient [...] others. PHQ-9 Total Score (past 180 days): 11/26/2024 21 11/19/2024 23 11/13/2024 23 11/05/2024 24 10/08/2024 [...] distant from others: Extremely 14. Feeling numb: Quite a bit 15. Feeling irritable: Extremely 16. Reckless behavior: Moderately 17. Being super-alert : Quite a bit 18. Feeling easily startled: Quite a bit 19. Difficulty concentrating: Extremely 20. Trouble sleeping: Quite a bit PCL-5 total score = 72 This measure assesses an individual's perception of [...] PCL-5 Weekly Total Score (past 180 days): 11/26/2024 72 11/19/2024 73 11/13/2024 71 11/05/2024 66 10/08/2024 70 09/10/2024 60 08/27/2024 66 08/20/2024 74 08/13/2024 44 07/30/2024 60 07/23/2024 56 07/16/2024 55 07/09/2024 65 07/02/2024 51 06/18/2024 49 /mat/ Robert Rodriguez Psy.D. SEXUAL TRAUMA/WOMEN'S PSYCHOLOGIST Signed: 11/26/2024 13:47 ROBERT R[facility]IGUE[facility] [place] [facility]
--- OUTSIDE RECORDS SUMMARY | 2024-12-10 09:00 | XMS_ITS | Encounter Summary ---
Author Name [facility] [place]) Organization [facility] [place] Address [address] [place] [address] Care Team Providers Care Green Promotions Specialist Name Role Phone TRINH FRANCO Primary Care [...] Patient's Relationship to Policy [employer] ([phone]) PRESCRIPT ION [facility] Jun 07, 2022 [id number] Jelani ALVAREZ PATIENT Selected Encounter This section includes the information on record at [place] for the Encounter. Date/Time Encounter Type Encounter Description Reason Provider Source Dec 10, 2024 01:00 PM PSYTX W PT 45 MINUTES [facility] - IND ICD-10-CM F43.12 Post-traumatic stress disorder, chronic CAMPONOGARA,SA LIAYH E Encounter Template Text not used by [place] Assessments - Encounter Diagnoses This section includes the primary and secondary diagnoses documented for the Encounter. Date/Time Primary/Secondary Diagnosis Diagnosis Name Provider Source Dec 10, 2024 02:50 PM PRIMARY Post-traumatic stress disorder, chronic CAMPONOGARA,SA LIYAH [place] [facility] [place] [facility] Dec 10, 2024 02:50 PM SECONDARY Major depressive disorder, recurrent, moderate CAMPONOGARA,SA LIYAH [facility] [place] [facility] Plan of Treatment: Future Appointments (+ 6 months) and Future Tests (+/- 45 days) The Plan of Treatment section includes future care activities for the patient from all [place] treatmentfacilities. This section includes future appointments and future orders which are active, pending or scheduled. Future Appointments This section includes appointments that were scheduled to occur 6 months from the date of the Encounter, up to a maximum of 20 appointments. The data comes from all [place] treatment facilities. Appointment Date/Time Appointment Type Appointme nt Facility Name Dec 17, 2024 01:00 PM AMBULATORY - PS[facility]IATRY [facility] [place] [facility] Dec 22, 2024 10:15 AM AMBULATORY - MEDICINE [facility] [place] [facility] Dec 23, 2024 01:30 PM AMBULATORY - MEDICINE [facility] [place] [facility] Dec 31, 2024 01:00 PM AMBULATORY - PS[facility]IATRY [facility] [place] [facility] Jan 04, 2025 10:00 AM AMBULATORY - MEDICINE [facility] [place] [facility] Jan 28, 2025 08:00 AM AMBULATORY - MEDICINE [facility] [place] [facility] Jan 28, 2025 02:00 PM AMBULATORY - PS[facility]IATRY [facility] [place] [facility] Jan 28, 2025 02:00 PM AMBULATORY - [place]ATRY [place] [facility] Jan 31, 2025 03:00 PM AMBULATORY - PS[facility]CHIATRY [facility] [place] [facility] Feb 03, 2025 08:00 AM AMBULATORY - MEDICINE [facility] [place] [facility] Feb 16, 2025 03:00 PM AMBULATORY - PS[facility]CHIATRY [facility] [place] [facility] Feb 22, 2025 02:00 PM AMBULATORY - PSYCHIATRY [facility] [place] [facility] Feb 28, 2025 03:00 PM AMBULATORY - PS[facility]CHIATRY [facility] [place] [facility] Mar 29, 2025 01:00 PM AMBULATORY - MEDICINE [facility] [place] [facility] Apr 21, 2025 03:30 PM AMBULATORY - MEDICINE [facility] [place] [facility] Active, Pending, and Scheduled Orders This section includes a listing of several types of active, pending, and scheduled orders, including clinic medications orders, diagnostic test orders, procedure orders and consult orders; where the start date of the order is 45 days before the date of the Encounter or 45 days after the date of theEncounter. The data comes from all [place] treatment facilities. Test Date/Time Test Type Test Details Facility Name Dec 27, 2024 04:40 PM Consult Order [facility]-MAMMOGRAPHY FEMALE SCREEN Cons Worm Picker's Choice [facility] Jan 04, 2025 10:20 AM Consult Order [facility]-PARTS REMOVER Cons Worm Picker[facility] Choice [facility] Lab Results: +/- 30 days of the encounter This section includes the Chemistry and Hematology Lab Results on record with [place] for the patient. Radiology Reports and Pathology Reports are provided separately, in subsequent sections. Lab Results This section contains the Chemistry/Hematology Results that were resulted 30 days before or 30 daysafter the date of the Encounter. Date/Time Source Result Type Result - Unit Interpretation Reference Range Specimen Type Comment Dec 23, 2024 02:09 PM [facility] LIVER FUNCTION SERUM Specimen Type: SERUM No comment entered. Ordering Provider: LEANDRA BAEZ V Report Released Date/Time: Dec 23, 2024 01:51 PM Reporting Lab: [address] [address] Performing Lab: [address] [address] PROTEIN,TOTAL 6.9 g/dL 6.4-8.3 ALBUMIN 3.8 g/dL 3.5-5.2 ALKALINE PHOSPHATASE 51 U/L 40-150 AST 20 U/L 5-34 ALT 12 U/L 0-55 BILIRUBIN, TOTAL 0.5 mg/dL 0.2-1.2 Dec 23, 2024 02:09 PM [facility] BASIC METABOLIC PANEL (fasting) SERUM Specime n Type: SERUM No comment entered. Ordering Provider: LEANDRA BAEZ V Report Released Date/Time: Dec 23, 2024 01:51 PM Reporting Lab: [address] [address] Performing Lab: [facility] [address] [address] UREA NITROGEN 19 mg/dL 7-19 GLUCOSE 62 mg/dL L 65-100 SODIUM 138 mmol/L 136-145 POTASSIUM 4.2 mmol/L 3.5-5.1 CHLORIDE 106 mmol/L 98-107 CO2 25 meq/L 22-29 CALCIUM 8.3 mg/dL L 8.4-10.2 CREATININE, Serum 0.90 mg/dL .57-1.11 eGFR(CKD-EPI 2020) 81 mL/min >60 Dec 23, 2024 02:09 PM [facility] CBC AND DIFF (AUTO) BLOOD Specimen Type: ROSEMARIE Pittman No comment entered. Ordering Provider: LEANDRA BAEZ V Report Released Date/Time: Dec 23, 2024 01:51 PM Reporting Lab: [address] [address] Performing Lab: [address] [address] WBC 6.64 10*3/uL 4.50-11.00 RBC 4.12 10*6/uL [...] 10*3/uL 0.00-0.00 Dec 23, 2024 02:09 PM [facility] TSH SERUM Specimen Type: SERUM No comment entered. Ordering Provider: LEANDRA BAEZ V Report Released Date/Time: Dec 23, 2024 01:51 PM Reporting Lab: [facility] [address] [address] Performing Lab: [facility] [address] [address] TSH 1.66 u[IU]/mL 0.35-4.94 Social History: Smoking [...] Facil ity May 14, 2024 01:00 PM [place]-TOBACCO NEVER U SED CIGARETTES [facility] Tobacco Use History This section includes a history of the smoking, or tobacco-related health factors, that were collected on or before the date of the Encounter. The data comes from the [place] facility where the Encounter took place. Date/Time Smoking Status/Tobacco Use Comment F acility May 14, 2024 01:00 PM [place]-TOBACCO NEVER U SED OTHER TYPE [facility] Advance Directives: All historical and [...] Encounter. Date/Time Encounter Note(s) Provider Source Dec 10, 2024 02:42 PM MENTAL HEALTH NOTE: LOCAL TITLE: CBT DEPRESSION THERAPY NOTE STANDARD TITLE: MENTAL HEALTH NOTE DATE OF NOTE: DEC 10, 2024@14:42 ENTRY DATE: DEC 10, 2024@14:42:05 AUTHOR: ROBERT RODRIGUEZ EXP COSIGNER: URGENCY: STATUS: COMPLETED [facility] Video Connect (VVC) Standard Documentation VVC Clinician Resources Only: E911 (Emergency Call Relay Center): [phone] [facility] Crisis Line - 988 then press #1. [facility] Suicide Coordinator [phone], Ext. [phone]; Back-up Ext. [phone] [place] Police, Kassandra HERNANDEZ [phone] Introduction: Visit is being conducted by [place] Vilynx. [place] identified with 2 identifiers: [X] Full Name [X] Date of [ ] [place] ID Card Emergency Plan: confirmed and/or provided the following information in case of emergency or technology failure. PATIENT PHONE - PHONE NUMBER [CELLULAR] - Is patient phone number correct, if not, enter below: 's phone number: JAYLAN ALVAREZ [address], [place], [address] 's present location and address for appointment: see chart Bourbon's emergency contact name and phone number: see chart reported that location is private and safe: Yes Informed Consent: Bourbon informed of the risks and benefits of Telehealth video care. Bourbon has the right to refuse video services. If refuses video visit, a qdej-kt-[id number] visit will be scheduled. Bourbon verbalized consent for this video visit: Yes provided consent for any other persons present for visit: N/A If yes, who and relationship to patient: Secure visit: Visit was locked for security and privacy:Yes --------- COGNITIVE BEHAVIORAL THERAPY FOR DEPRESSION (CBT-D): MIDDLE PHASE Time in session (in minutes): 50. SESSION NUMBER: 16 DIAGNOSIS: Major Depressive Disorder, Moderate, Recurrent Secondary (if applicable): PTSD, Chronic MENTAL STATUS/BEHAVIORAL OBSERVATIONS Bourbon was on time and she was dressed appropriate to the context. Bourbon was oriented x4, and her thought process was linear, logical, and coherent. She described her mood as depressed and her affect was expressive, stable, and consistent with stated mood. Speech and motor activity fell within normal limits. was polite, cooperative, and engaged. denied suicidal and homicidal ideation, plan, and intent. ASSESSMENT Date Instrument Raw Trans Scale 12/10/2024 12:36 PHQ9 23 PHQ9 11/26/2024 13:10 PHQ9 21 PHQ9 11/19/2024 12:52 PHQ9 23 PHQ9 11/12/2024 22:30 PHQ9 23 PHQ9 11/05/2024 12:59 PHQ9 24 PHQ9 10/08/2024 12:33 [...] 10:12 PHQ9 10 PHQ9 OTHER ASSESSMENT MEASURES reported that she had trouble sleeping one night and ended up sleeping all day. This then started a cycle over the past 4 days of not sleeping at night and sleeping during the day. We discussed strategies to stay awake during the day to return to a more helpful sleep schedule. SESSION CONTENT: In this middle phase session of Cognitive Behavioral Therapy (CBT) for depression, the following therapeutic activities were performed: BRIDGE FROM LAST SESSION Therapist inquired about what the found important or helpful from the last session and if the Bourbon had any concerns about the last session. Therapist inquired about the degree to which the homework was completed and what was learned from the homework assessment. PRIORITIZED AGENDA The therapist and Bourbon collaboratively developed a prioritized agenda. BEHAVIORAL STRATEGIES: The following behavioral strategies were discussed during the session: Activity Scheduling Bourbon identified activities to engage in this week, including hiking, laying on a floatie in the pool, cleaning the pool, biking, yoga, and attending a concert. COGNITIVE STRATEGIES: The following cognitive strategies were discussed during the session: Modified Dysfunctional Automatic Thoughts Used 5-Column Thought Record identified negative automatic cognitions that arose regarding her expectations of others. She worked through them by considering her role in not advocating for herself sufficiently. Therapist employed the Guided Discovery method when incorporating cognitive and/or behavioral strategies COLLABORATIVE HOMEWORK ASSIGNMENT: The homework assignment for this session was: activity scheduling, thought record The homework assignment and goal of the assignment was written down. The therapist inquired about 's understanding of the homework assignment and its rationale. Therapist and discussed the likelihood that the will do the homework. Specific roadblocks or challenges for doing the homework were discussed. FINAL SUMMARY AND FEEDBACK: PLAN Next session planned for agreed upon date/time of: Fri 1pm [facility] Additional notes regarding scheduling or plan: continue CBT-D /es/ Robert Rodriguez PsZahra SEXUAL TRAUMA/WOMEN'S PSYCHOLOGIST Signed: 12/10/2024 14:50 ROBERT RODRIGUEZ [place] [facility] [place] [facility] Dec 10, 2024 01:00 PM MENTAL HEALTH DIAGNOSTIC STUDY NOTE: LOCAL TITLE: MENTAL HEALTH DIAGNOSTIC STUDY STANDARD TITLE: MENTAL HEALTH DIAGNOSTIC STUDY NOTE DATE OF NOTE: DEC 10, 2024@13:00:50 ENTRY DATE: DEC 10, 2024@13:00:50 AUTHOR: ROBERT RODRIGUEZ EXP COSIGNER: URGENCY: STATUS: COMPLETED Assessments were sent to the via text/email. These assessments were completed by JAYLAN ALVAREZ on their own device on 12/10/2024 12:36:32 PM. PATIENT HEALTH QUESTIONNAIRE-9 (PHQ-9) The patient reported symptoms consistent with a major depressive episode. Patient reported being bothered by the following over the last 2 weeks: 1. Little interest or pleasure: More than half the days 2. Feeling down, depressed or hopeless: Nearly [...] others. PHQ-9 Total Score (past 180 days): 12/10/2024 23 11/26/2024 21 11/19/2024 23 11/13/2024 23 11/05/2024 24 10/08/2024 18 09/10/2024 21 08/27/2024 24 08/20/2024 24 08/13/2024 14 07/30/2024 18 07/23/2024 18 07/16/2024 23 07/09/2024 23 07/02/2024 13 06/18/2024 21 PTSD CHECKLIST (PCL-5) - WEEKLY Patient reported being bothered by the following over the past week: 1. Disturbing memories: Quite a bit 2. Disturbing dreams: Quite a bit 3. Re-experiencing events: Extremely 4. Cued distress: Extremely 5. Cued physical symptoms: Extremely 6. Avoiding internal reminders: Extremely 7. Avoiding external reminders: Extremely 8. Trouble with recall: Extremely 9. Negative beliefs: Extremely 10. Blaming self/others: Quite a bit 11. Negative feelings: Extremely 12. Loss of interest: Quite a bit 13. Feeling distant from others: Extremely 14. Feeling numb: Extremely 15. Feeling irritable: Extremely 16. Reckless behavior: Extremely 17. Being super-alert : Extremely 18. Feeling easily startled: Quite a bit 19. Difficulty concentrating: Extremely 20. Trouble sleeping: Extremely PCL-5 total score = 75 This measure assesses an individual's perception of [...] PCL-5 Weekly Total Score (past 180 days): 12/10/2024 75 11/26/2024 72 11/19/2024 73 11/13/2024 71 11/05/2024 66 10/08/2024 70 09/10/2024 60 08/27/2024 66 08/20/2024 74 08/13/2024 44 07/30/2024 60 07/23/2024 56 07/16/2024 55 07/09/2024 65 07/02/2024 51 06/18/2024 49 /mat/ Robert Rodriguez Psy.D. SEXUAL TRAUMA/WOMEN'S PSYCHOLOGIST Signed: 12/10/2024 14:41 ROBERT RODRIGUEZ [facility] [place] [facility]
--- OUTSIDE RECORDS SUMMARY | 2024-12-17 09:00 | XMS_ITS | Encounter Summary ---
Author Name [facility] [place] Address [address] [place] [address] Care Team Providers Care Disaster Recovery Specialist Name Role Phone TRINH FRANCO Primary [...] Patient's Relationship to Policy [facility] [employer] ([phone]) PRESCRIPT ION [facility] Jun 07, 2022 [id number] ALVAREZ PATIENT Selected Encounter This section includes the information on record at [place] for the Encounter. Date/Time Encounter Type Encounter Description Reason Provider Source Dec 17, 2024 01:00 PM PSYTX W PT 45 MINUTES [facility] - IND ICD-10-CM F43.12 Post-traumatic stress disorder, chronic CAMPONOGARA,SA LIYAH E Encounter Template Text not used by [place] Assessments - Encounter Diagnoses This section includes the primary and secondary diagnoses documented for the Encounter. Date/Time Primary/Secondary Diagnosis Diagnosis Name Provider Source Dec 17, 2024 03:24 PM PRIMARY Post-traumatic stress disorder, chronic CAMPONOGARA,SA LIYAH [place] [facility] [place] [facility] Dec 17, 2024 03:24 PM SECONDARY Major depressive disorder, recurrent, moderate CAMPONOGARA,SA LIYAH [place] [facility] [place] [facility] Plan of Treatment: Future Appointments (+ 6 months) and Future Tests (+/- 45 days) The Plan of Treatment section includes future care activities for the patient from all [place] treatmentfacilities. This section includes future appointments and future orders which are active, pending or scheduled. Future Appointments This section includes appointments that were scheduled to occur 6 months from the date of the Encounter, up to a maximum of 20 appointments. The data comes from all [place] treatment facilities. Appointment Date/Time Appointment Type Appointme nt Facility Name Dec 22, 2024 10:15 AM AMBULATORY - MEDICINE [place] [facility] [place] [facility] Dec 23, 2024 01:30 PM AMBULATORY - MEDICINE [place] [facility] [place] [facility] Dec 31, 2024 01:00 PM AMBULATORY - PSYCHIATRY [place] [facility] [place] [facility] Jan 04, 2025 10:00 AM AMBULATORY - MEDICINE [place] [facility] [place] [facility] Jan 28, 2025 08:00 AM AMBULATORY - MEDICINE [place] [facility] [place] [facility] Jan 28, 2025 02:00 PM AMBULATORY - PSYCHIATRY [place] [facility] [place] [facility] Jan 28, 2025 02:00 PM AMBULATORY [place]CHIATRY [place] [facility] Jan 31, 2025 03:00 PM AMBULATORY - PSYCHIATRY [facility] [place] [facility] Feb 03, 2025 08:00 AM AMBULATORY - MEDICINE [place] [facility] [place] [facility] Feb 16, 2025 03:00 PM AMBULATORY - PSYCHIATRY [facility] [place] [facility] Feb 22, 2025 02:00 PM AMBULATORY - PSYCHIATRY [facility] [place] [facility] Feb 28, 2025 03:00 PM AMBULATORY - PSYCHIATRY [facility] [place] [facility] Mar 29, 2025 01:00 PM AMBULATORY - MEDICINE [place] [facility] [place] [facility] Apr 21, 2025 03:30 PM AMBULATORY - MEDICINE [place] [facility] [place] [facility] Active, Pending, and Scheduled Orders This [...] Dec 27, 2024 04:40 PM Consult Order [facility]-MAMMOGRAPHY FEMALE SCREEN Cons [place] [facility] Jan 04, 2025 10:20 AM Consult Order [facility]-PIN MAKER Cons [place] [facility] Jan 28, 2025 12:00 AM Laboratory - Chemi stry Order VITAMIN D (25-OH) BLOOD (SST-SERUM) [facility] Jan 28, 2025 12:00 AM Laboratory - Chemi stry Order VITAMIN B12 BLOOD (SST-SERUM) [facility] Jan 28, 2025 12:00 AM Laboratory - Chemi stry Order FOLATE BLOOD (SST-GOLD) SERUM [facility] Lab Results: +/- 30 days of the [...] Type Comment Dec 23, 2024 02:09 PM [facility] LIVER FUNCTION SERUM Specimen Type: SERUM No comment entered. Ordering Provider: LEANDRA BAEZ V Report Released Date/Time: Dec 23, 2024 01:51 PM Reporting Lab: [address] [address] Performing Lab: [address] [address] PROTEIN,TOTAL 6.9 g/dL 6.4-8.3 ALBUMIN 3.8 g/dL 3.5-5.2 ALKALINE PHOSPHATASE 51 U/L 40-150 AST 20 U/L 5-34 ALT 12 U/L 0-55 BILIRUBIN, TOTAL 0.5 mg/dL 0.2-1.2 Dec 23, 2024 02:09 PM [facility] BASIC METABOLIC PANEL (fasting) SERUM Specime n Type: SERUM No comment entered. Ordering Provider: LEANDRA BAEZ V Report Released Date/Time: Dec 23, 2024 01:51 PM Reporting Lab: [facility] [address] [facility] [facility] [address] Performing Lab: [address] [address] UREA NITROGEN 19 mg/dL 7-19 GLUCOSE 62 mg/dL L 65-100 SODIUM 138 mmol/L 136-145 POTASSIUM 4.2 mmol/L 3.5-5.1 CHLORIDE 106 mmol/L 98-107 CO2 25 meq/L 22-29 CALCIUM 8.3 mg/dL L 8.4-10.2 CREATININE, Serum 0.90 mg/dL .57-1.11 eGFR(CKD-EPI 2020) 81 mL/min >60 Dec 23, 2024 02:09 PM [facility] CBC AND DIFF (AUTO) BLOOD Specimen Type: BLOO D No comment entered. Ordering Provider: LEANDRA BAEZ V Report Released Date/Time: Dec 23, 2024 01:51 PM Reporting Lab: [address] [address] Performing Lab: [address] [address] WBC 6.64 10*3/uL 4.50-11.00 RBC 4.12 10*6/uL [...] 10*3/uL 0.00-0.00 Dec 23, 2024 02:09 PM [facility] TSH SERUM Specimen Type: SERUM No comment entered. Ordering Provider: LEANDRA BAEZ V Report Released Date/Time: Dec 23, 2024 01:51 PM Reporting Lab: [facility] [address] [facility] [address] Performing Lab: [address] [address] TSH 1.66 u[IU]/mL 0.35-4.94 Social History: Smoking [...] [place]-TOBACCO NEVER U SED OTHER TYPE [facility] Tobacco Use History This section includes a history of the smoking, or tobacco-related health factors, that were collected on or before the date of the Encounter. The data comes from the [place] facility where the Encounter took place. Date/Time Smoking Status/Tobacco Use Comment F acility May 14, 2024 01:00 PM [place]-TOBACCO NEVER U SED OTHER TYPE [facility] Advance Directives: All historical and current [...] 25, 2023 ADVANCE DIRECTIVE KAIA MOTLEYFIORDALIZAMONICA WHITFIELD [facility] Encounter Notes: All associated encounter notes This section contains the clinical notes associated to the Encounter. Date/Time Encounter Note(s) Provider Source Dec 17, 2024 01:05 PM MENTAL HEALTH NOTE: LOCAL TITLE: CBT DEPRESSION THERAPY NOTE STANDARD TITLE: MENTAL HEALTH NOTE DATE OF NOTE: DEC 17, 2024@13:05 ENTRY DATE: DEC 17, 2024@13:05:09 AUTHOR: AZALEA RODRIGUEZ COSIGNER: URGENCY: STATUS: COMPLETED [place] Video Connect (VVC) Standard Documentation VVC Clinician Resources Only: E911 (Emergency Call Relay Center): [phone] [facility] Crisis Line - 988 then press #1. [facility] Suicide Coordinator [phone], Ext. [phone]; Back-up Ext. [phone] [place] Police, Kassandra HERNANDEZ [phone] Introduction: Visit is being conducted by [place] [employer]. identified with 2 identifiers: [X] Full Name [X] Date of [ ] VA ID Card Emergency Plan: [place] confirmed and/or provided the following information in case of emergency or technology failure. PATIENT PHONE - PHONE NUMBER [CELLULAR] - Is patient phone number correct, if not, enter below: [place]'s phone number: JAYLAN ALVAREZ [address], [place], [address] [place]'s present location and address for appointment: see chart 's emergency contact name and phone number: see chart [place] reported that location is private and safe: Yes Informed Consent: [place] informed of the risks and benefits of Telehealth video care. has the right to refuse video services. If refuses video visit, a [id number] visit will be scheduled. verbalized consent for this video visit: Yes [place] provided consent for any other persons present for visit: N/A If yes, who and relationship to patient: Secure visit: Visit was locked for security and privacy:Yes --------- COGNITIVE BEHAVIORAL THERAPY FOR DEPRESSION (CBT-D): MIDDLE PHASE Time in session (in minutes): 50 SESSION NUMBER: 17 DIAGNOSIS: Major Depressive Disorder, Moderate, Recurrent Secondary (if applicable): PTSD, Chronic MENTAL STATUS/BEHAVIORAL OBSERVATIONS was on time and she was dressed appropriate to the context. Nash was oriented x4, and her thought process was linear, logical, and coherent. She described her mood as euthymic and her affect was expressive, stable, and consistent with stated mood. Speech and motor activity fell within normal limits. was polite, cooperative, and engaged. [place] denied suicidal and homicidal ideation, plan, and [...] CHANGES IN ASSESSMENT SCORES FROM EARLIER ADMINISTRATIONS: did not complete outcome measures today, as this personal lines underwriter did not realize that [facility] timed out. They were sent for completion after session. [place] self-reported reduced feelings of depression. SESSION CONTENT: In this middle phase session of Cognitive Behavioral Therapy (CBT) for depression, the following therapeutic activities were performed: BRIDGE FROM LAST SESSION Therapist inquired about what the [place] found important or helpful from the last session and if the had any concerns about the last session. Therapist inquired about the degree to which the homework was completed and what was learned from the homework assessment. PRIORITIZED AGENDA The therapist and collaboratively developed a prioritized agenda. BEHAVIORAL STRATEGIES: The following behavioral strategies were discussed during the session: COGNITIVE STRATEGIES: The following cognitive strategies were discussed during the session: Therapist employed the Guided Discovery method when incorporating cognitive and/or behavioral strategies Nash reported that she did not feel depressed this week. She stated that she was much more active (i.e., went on a hike, biked several times, yoga 3x, stationary bike, cleaned her pool daily). She described feeling more accomplished, as she spent less time in bed and more time completing tasks. 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 Nash also reported that she studied for an exam and felt she did well on it. She feels hopeful about her strategy for promotion. Nash was also able to engage in other valued actions, such as helping others (i.e., studying for exam) and engage in hospitality (i.e., invited work friends over to her pool/yard). She stated she felt happy and more connected to others by watching them have fun and participating in conversations. Nash also stated that she noticed negative thoughts and was able to shift her perspective to not take Jn's lack of follow through personally. We discussed the role of her increased activity, increased sunlight, cognitive restructuring, and social activity in improving her mood. COLLABORATIVE HOMEWORK ASSIGNMENT: The homework assignment for this session was: continue increased activity, valued action, and cognitive restructuring The homework assignment and goal of the assignment was written down. The therapist inquired about 's understanding of the homework assignment and its rationale. Therapist and discussed the likelihood that the will do the homework. Specific roadblocks or challenges for doing the homework were discussed. PLAN Next session planned for agreed upon date/time of: 12/31 1pm VVC Additional notes regarding scheduling or plan: continue CBT-D /es/ Azalea Rodriguez Psy.D. SEXUAL TRAUMA/WOMEN'S PSYCHOLOGIST Signed: 12/17/2024 15:24 AZALEA RODRIGUEZ [facility]L [facility]
--- OUTSIDE RECORDS SUMMARY | 2024-12-23 09:30 | XMS_ITS ---
Author Name [facility] [place] Organization [place] Address [address] [place] [address] Care Team Providers Care Mortgage Loan Interviewer Name Role Phone TRINH FRANCO Primary Care [...] Patient's Relationship to Policy [employer] ([phone]) PRESCRIPT ION [facility] Jun 07, 2022 [id number] AL[address] PATIENT Selected Encounter This section includes the information on record at [place] for the Encounter. Date/Time Encounter Type Encounter Description Reason Provider Source Dec 23, 2024 01:30 PM OFFICE O/P EST MOD 30 MIN RHEUMATOLOGY/ARTH RITIS ICD-10-CM M45.9 Ankylosing spondylitis of unspecified sites in spine LEANDRA BAEZ V Junior Encounter Template Text not used by [place] Assessments - Encounter Diagnoses This section includes the primary and secondary diagnoses documented for the Encounter. Date/Time Primary/Secondary Diagnosis Diagnosis Name Provider Source Dec 23, 2024 02:05 PM PRIMARY Ankylosing spondylitis of unspecified sites in spine DIANN BAEZ V [place] [facility] [facility] [place] [facility] Dec 23, 2024 02:05 PM SECONDARY Lng trm (crnt) use of immunomodulator & immunosuppressant DIANN BAEZ V [place] [facility] [facility] Plan of Treatment: Future Appointments (+ 6 months) and Future Tests (+/- 45 days) The Plan of Treatment section includes future care activities for the patient from all [place] treatmentfacilities. This section includes future appointments and future orders which are active, pending or scheduled. Future Appointments This section includes appointments that were scheduled to occur 6 months from the date of the Encounter, up to a maximum of 20 appointments. The data comes from all [place] treatment facilities. Appointment Date/Time Appointment Type Appointme nt Facility Name Dec 31, 2024 01:00 PM AMBULATORY - PSYCHIATRY [place] [facility] [place] [facility] Jan 04, 2025 10:00 AM AMBULATORY - MEDICINE [place] [facility] [facility] Jan 28, 2025 08:00 AM AMBULATORY - MEDICINE [place] [place] [facility] Jan 28, 2025 02:00 PM AMBULATORY - PSYCHIATRY [place] [facility] [place] [facility] Jan 28, 2025 02:00 PM AMBULATORY - [place]CHIATRY [place] [facility] Jan 31, 2025 03:00 PM AMBULATORY - PSYCHIATRY [place] [facility] [place] [facility] Feb 03, 2025 08:00 AM AMBULATORY - MEDICINE [place] [facility] [facility] Feb 16, 2025 03:00 PM AMBULATORY - PSYCHIATRY [place] [facility] [place] [facility] Feb 22, 2025 02:00 PM AMBULATORY - PSYCHIATRY [place] [facility] [place] [facility] Feb 28, 2025 03:00 PM AMBULATORY - PSYCHIATRY [place] [facility] [place] [facility] Mar 29, 2025 01:00 PM AMBULATORY - MEDICINE [place] [facility] [facility] Apr 21, 2025 03:30 PM AMBULATORY - MEDICINE [place] [facility] [facility] Active, Pending, and Scheduled Orders This section includes a listing of several types of active, pending, and scheduled orders, including clinic medications orders, diagnostic test orders, procedure orders and consult orders; where the start date of the order is 45 days before the date of the Encounter or 45 days after the date of theEncounter. The data comes from all [place] treatment facilities. Test Date/Time Test Type Test Details Facility Name Dec 27, 2024 04:40 PM Consult Order [facility]-MAMMOGRAPHY FEMALE SCREEN Cons [place] [facility] Jan 04, 2025 10:20 AM Consult Order [facility]-VICE PRESIDENT Cons [place] [facility] Jan 28, 2025 12:00 AM Laboratory - Chemi stry Order VITAMIN D (25-OH) BLOOD (SST-SERUM) SP [facility] Jan 28, 2025 12:00 AM Laboratory - Chemi stry Order VITAMIN B12 BLOOD (SST-SERUM) [facility] Jan 28, 2025 12:00 AM Laboratory - Chemi stry Order FOLATE BLOOD (SST-GOLD) [facility] Feb 02, 2025 12:31 PM Consult Order [facility]-GI GENERAL Cons [place] [facility] Lab Results: +/- 30 days of the encounter This section includes the Chemistry and Hematology Lab Results on record with [place] for the patient. Radiology Reports and Pathology Reports are provided separately, in subsequent sections. Lab Results This section contains the Chemistry/Hematology Results that were resulted 30 days before or 30 daysafter the date of the Encounter. Date/Time Source Result Type Result - Unit Interpretation Reference Range Specimen Type Comment Dec 23, 2024 02:09 PM [facility] LIVER FUNCTION SERUM Specimen Type: SERUM No comment entered. Ordering Provider: LEANDRA BAEZ V Report Released Date/Time: Dec 23, 2024 01:51 PM Reporting Lab: [facility] [address] [facility] [address] Performing Lab: [facility] [address] [facility] [address] PROTEIN,TOTAL 6.9 g/dL 6.4-8.3 ALBUMIN 3.8 g/dL 3.5-5.2 ALKALINE PHOSPHATASE 51 U/L 40-150 AST 20 U/L 5-34 ALT 12 U/L 0-55 BILIRUBIN, TOTAL 0.5 mg/dL 0.2-1.2 Dec 23, 2024 02:09 PM [facility] BASIC METABOLIC PANEL (fasting) SERUM Specime n Type: SERUM No comment entered. Ordering Provider: LEANDRA BAEZ V Report Released Date/Time: Dec 23, 2024 01:51 PM Reporting Lab: [facility] [address] [facility] [address] Performing Lab: [facility] [address] [facility] [address] UREA NITROGEN 19 mg/dL 7-19 GLUCOSE 62 mg/dL L 65-100 SODIUM 138 mmol/L 136-145 POTASSIUM 4.2 mmol/L 3.5-5.1 CHLORIDE 106 mmol/L 98-107 CO2 25 meq/L 22-29 CALCIUM 8.3 mg/dL L 8.4-10.2 CREATININE, Serum 0.90 mg/dL .57-1.11 eGFR(CKD-EPI 2020) 81 mL/min >60 Dec 23, 2024 02:09 PM [facility] TSH SERUM Specimen Type: SERUM No comment entered. Ordering Provider: LEANDRA BAEZ V Report Released Date/Time: Dec 23, 2024 01:51 PM Reporting Lab: [facility] [address] [facility] [address] Performing Lab: [address] [address] TSH 1.66 u[IU]/mL 0.35-4.94 Dec 23, 2024 02:09 PM [facility] CBC AND DIFF (AUTO) BLOOD Specimen Type: BLOO D No comment entered. Ordering Provider: LEANDRA BAEZ V Report Released Date/Time: Dec 23, 2024 01:51 PM Reporting Lab: [facility] [address] [facility] [address] Performing Lab: [address] [address] WBC 6.64 10*3/uL 4.50-11.00 RBC 4.12 10*6/uL [...] 0.0 0.0-0.0 NRBC, ABS 0.00 10*3/uL 0.00-0.00 Vital Signs: All taken on the encounter date This section contains inpatient and outpatient Vital Signs collected on the date of the Encounter. Date/Time Temperature Pulse Blood Pressure Respiratory Rate SP02 Pain Height Weight Body Mass Index Source Dec 23, 2024 01:36 PM 97.6 F 76 /min 124/85 mm[Hg] 16 /min 100 % 6 147 lb 28 [facility] Social History: Smoking Status (Most current) and [...] Claudia ity May 14, 2024 01:00 PM [place]-TOBACCO NEVER U SED CIGARETTES [facility] Tobacco Use History This section includes a history of the smoking, or tobacco-related health factors, that were collected on or before the date of the Encounter. The data comes from the [place] facility where the Encounter took place. Date/Time Smoking Status/Tobacco Use Comment Rebecca guan May 14, 2024 01:00 PM [place]-TOBACCO NEVER U SED OTHER TYPE [facility] Advance Directives: All historical and [...] DIRECTIVE PETROS MOTLEY [facility] Encounter Notes: All associated encounter notes This section contains the clinical notes associated to the Encounter. Date/Time Encounter Note(s) Provider Source Dec 23, 2024 01:35 PM RHEUMATOLOGY NOTE: LOCAL TITLE: RHEUMATOLOGY PROGRESS NOTE STANDARD TITLE: RHEUMATOLOGY NOTE DATE OF NOTE: DEC 23, 2024@13:35 ENTRY DATE: DEC 23, 2024@13:35:18 AUTHOR: LEANDRA BAEZ COSIGNER: URGENCY: STATUS: COMPLETED 43 yo with spondyloartrhopathy on etanercept. Still filling from outside. She has had a couple of canker sores - inside cheek - resolved. 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 The following VA and Non-VA medications were reconciled with the patient: Active Outpatient Medications (including Supplies): CETIRIZINE HCL 10MG TAB TAKE ONE TABLET BY MOUTH ONCE ACTIVE (S) DAILY Indication: FOR ALLERGIES CHOLECALCIF 50MCG (D3-2,000UNIT) TAB TAKE ONE TABLET BY ACTIVE MOUTH ONCE DAILY FOR VITAMIN SUPPLEMENTATION Indication: FOR VITAMIN D DEFICIENCY CREON 24,000UNIT EC CAP TAKE 2 CAPSULES BY MOUTH TWICE ACTIVE DAILY ESCITALOPRAM OXALATE 10MG TAB TAKE ONE AND ONE-HALF ACTIVE TABLETS BY MOUTH EVERY EVENING FOR MOOD/DEPRESSION Indication: FOR REPEATED EPISODES OF ANXIETY ETANERCEPT 50MG/ML INJ SURECLICK INJECT 50MG ACTIVE (S) SUBCUTANEOUSLY EVERY FRIDAY Indication: SPONDYLOARTHROPATHY FEXOFENADINE HCL 180MG TAB TAKE ONE TABLET BY MOUTH ONCE ACTIVE DAILY Indication: FOR ALLERGIES VIENVA TAB 28 TAKE 1 TABLET BY MOUTH ONCE DAILY FOR REYNA ACTIVE (S) MENOPAUSE HORMONE TREATMENT Indication: FOR REYNA MENOPAUSE HORMONE TREATMENT Non-VA PANTOPRAZOLE NA 20MG EC TAB 20MG BY MOUTH EVERY ACTIVE MORNING 30 MINUTES BEFORE BREAKFAST Indication: Ulcer exam BP 124/85, P 76, 100% HEENT no mm lesions, no sclera/conjuctiva injection hair is thin no focal alopecia chest CTA CV reg no edema abd benign msk no synovitis or effusion. no achilles thickening, small healing cut on R dorsum lateral foot (cologne bottle fell and glass cut) Imp/plan - Spondyloarthroopathy - well controlled on Etanercept tolerating without side effects. Has refills for 6 months RTC 3-4 months;labs after visit - call/message if issues/problems Drowsy - takes lexipro at night - will try taking earlier to see if helps. currently taking when goes to bed at 12 or 1 - hopefully switching to day schedule will help. Wt gain - check TSH with labs. /mat/ LEANDRA BAEZ STAFF PHYSICIAN Signed: 12/23/2024 14:05 LEANDRA BAEZ [facility]TRL [facility]
--- OUTSIDE RECORDS SUMMARY | 2024-12-31 09:00 | XMS_ITS | Encounter Summary ---
Author Name [facility] [place] [facility] [place] Address [address] [place] [address] Care Team Providers Care General Ledger Bookkeeper Name Role Phone TRINH FRANCO Primary Care [...] Patient's Relationship to Policy [facility] [employer] ([phone]) [facility] Jun 07, 2022 [id number] PATIENT Selected Encounter This section includes the information on record at [place] for the Encounter. Date/Time Encounter Type Encounter Description Reason Provider Source Dec 31, 2024 01:00 PM PSYTX W PT 45 MINUTES [facility] - IND ICD-10-CM F33.1 Major depressive disorder, recurrent, moderate CAMPONOGARA,SA LIYAH E Encounter Template Text not used by [place] Assessments - Encounter Diagnoses This section includes the primary and secondary diagnoses documented for the Encounter. Date/Time Primary/Secondary Diagnosis Diagnosis Name Provider Source Dec 31, 2024 01:54 PM PRIMARY Major depressive disorder, recurrent, moderate CAMPONOGARA,SA LIYAH [place] [facility] [place] [facility] Dec 31, 2024 01:54 PM SECONDARY Post-traumatic stress disorder, chronic CAMPONOGARA,SA LIYAH [place] [facility] [place] [facility] Plan of Treatment: Future Appointments (+ 6 months) and Future Tests (+/- 45 days) The Plan of Treatment section includes future care activities for the patient from all [place] [facility] This section includes future appointments and future orders which are active, pending or scheduled. Future Appointments This section includes appointments that were scheduled to occur 6 months from the date of the Encounter, up to a maximum of 20 appointments. The data comes from all [place] treatment facilities. Appointment Date/Time Appointment Type Appointme nt Facility Name Jan 04, 2025 10:00 AM AMBULATORY - MEDICINE [place] [facility] [place] [facility] Jan 28, 2025 08:00 AM AMBULATORY [place]IC[place] [facility] [place] [facility] Jan 28, 2025 02:00 PM AMBULATORY - PSYCHIATRY [place] [facility] [place] [facility] Jan 28, 2025 02:00 PM AMBULATORY [place]AT[place] [facility] Jan 31, 2025 03:00 PM AMBULATORY - PSYCHIATRY [place] [facility] [place] [facility] Feb 03, 2025 08:00 AM AMBULATORY [place]IC[place] [facility] [place] [facility] Feb 16, 2025 03:00 PM AMBULATORY - PS[place]CHIATRY [place] [facility] [place] [facility] Feb 22, 2025 02:00 PM AMBULATORY - PSYCHIATRY [place] [facility] [place] [facility] Feb 28, 2025 03:00 PM AMBULATORY - PS[place]CHIATRY [place] [facility] [place] [facility] Mar 29, 2025 01:00 PM AMBULATORY [place]ICINE [place] [facility] [place] [facility] Apr 21, 2025 03:30 PM AMBULATORY - [place]ICINE [place] [facility] [place] [facility] Active, Pending, and Scheduled Orders This section includes a listing of several types of active, pending, and scheduled orders, including clinic medications orders, diagnostic test orders, procedure orders and consult orders; where the start date of the order is 45 days before the date of the Encounter or 45 days after the date of theEncounter. The data comes from all [place] treatment [facility]. Test Date/Time Test Type Test Details Facility Name Dec 27, 2024 04:40 PM Consult Order [facility]-MAMMOGRAPHY FEMALE SCREEN Cons System Administration Advisor's Choice [facility] Jan 04, 2025 10:20 AM Consult Order [facility] Cons System Administration Advisor's [facility] Jan 28, 2025 12:00 AM Laboratory - Chemi stry Order VITAMIN D (25-OH) BLOOD (SST-SERUM) SP [facility] Jan 28, 2025 12:00 AM Laboratory - Chemi stry Order VITAMIN B12 BLOOD (SST-SERUM) SP [facility] Jan 28, 2025 12:00 AM Laboratory - Chemi stry Order FOLATE BLOOD (SST-GOLD) SERUM SP [facility] Feb 02, 2025 12:31 PM Consult Order [facility] Cons System Administration Advisor's Choice [facility] Feb 07, 2025 07:58 AM Consult Order [facility]/ENT ONE Cons System Administration Advisor's Choice [facility] Lab Results: +/- 30 days of [...] Type Comment Dec 23, 2024 02:09 PM [facility] LIVER FUNCTION SERUM Specimen Type: SERUM No comment entered. Ordering Provider: LEANDRA BAEZ V Report Released Date/Time: Dec 23, 2024 01:51 PM Reporting Lab: [address] [address] Performing Lab: [address] [address] PROTEIN,TOTAL 6.9 g/dL 6.4-8.3 ALBUMIN 3.8 g/dL 3.5-5.2 ALKALINE PHOSPHATASE 51 U/L 40-150 AST 20 U/L 5-34 ALT 12 U/L 0-55 BILIRUBIN, TOTAL 0.5 mg/dL 0.2-1.2 Dec 23, 2024 02:09 PM [facility] BASIC METABOLIC PANEL (fasting) SERUM Specime n Type: SERUM No comment entered. Ordering Provider: LEANDRA BAEZ V Report Released Date/Time: Dec 23, 2024 01:51 PM Reporting Lab: [address] [address] Performing Lab: [address] [address] UREA NITROGEN 19 mg/dL 7-19 GLUCOSE 62 mg/dL L 65-100 SODIUM 138 mmol/L 136-145 POTASSIUM 4.2 mmol/L 3.5-5.1 CHLORIDE 106 mmol/L 98-107 CO2 25 meq/L 22-29 CALCIUM 8.3 mg/dL L 8.4-10.2 CREATININE, Serum 0.90 mg/dL .57-1.11 eGFR(CKD-EPI 2020) 81 mL/min >60 Dec 23, 2024 02:09 PM [facility] CBC AND DIFF (AUTO) BLOOD Specimen Type: BLOO D No comment entered. Ordering Provider: LEANDRA BAEZ V Report Released Date/Time: Dec 23, 2024 01:51 PM Reporting Lab: [address] [address] Performing Lab: [address] [address] WBC 6.64 10*3/uL 4.50-11.00 RBC 4.12 10*6/uL [...] 10*3/uL 0.00-0.00 Dec 23, 2024 02:09 PM [facility] TSH SERUM Specimen Type: SERUM No comment entered. Ordering Provider: LEANDRA BAEZ V Report Released Date/Time: Dec 23, 2024 01:51 PM Reporting Lab: [facility] [address] [facility] [address] Performing Lab: [facility] [address] [facility] [address] TSH 1.66 u[IU]/mL 0.35-4.94 Social History: Smoking [...] 01:00 PM VA-TOBACCO NEVER U SED CIGARETTES [facility] Tobacco Use History This section includes a history of the smoking, or tobacco-related health factors, that were collected on or before the date of the Encounter. The data comes from the [place] facility where the Encounter took place. Date/Time Smoking Status/Tobacco Use Comment F acility May 14, 2024 01:00 PM VA-TOBACCO NEVER U SED OTHER TYPE [facility] Advance Directives: All historical and current Section [...] ADVANCE DIRECTIVE PETROS [facility] Encounter Notes: All associated encounter notes This section contains the clinical notes associated to the Encounter. Date/Time Encounter Note(s) Provider Source Dec 31, 2024 01:01 PM MENTAL HEALTH NOTE: LOCAL TITLE: CBT DEPRESSION THERAPY NOTE STANDARD TITLE: MENTAL HEALTH NOTE DATE OF NOTE: DEC 31, 2024@13:01 ENTRY DATE: DEC 31, 2024@13:02:07 AUTHOR: ROBERT RODRIGUEZ COSIGNER: URGENCY: STATUS: COMPLETED [facility] Video Connect (VVC) Standard Documentation VVC Clinician Resources Only: E911 (Emergency Call Relay Center): [phone] [facility] Crisis Line - 988 then press #1. [facility] Suicide Coordinator [phone], Ext. [phone]; Back-up Ext. [phone] [place] Police, Kassandra HERNANDEZ [phone] Introduction: Visit is being conducted by [place] [employer]. Parker identified with 2 identifiers: [X] Full Name [X] Date of [ ] [facility] ID Card Emergency Plan: Parker confirmed and/or provided the following information in case of emergency or technology failure. PATIENT PHONE - PHONE NUMBER [CELLULAR] - Is patient phone number correct, if not, enter below: Parker's phone number: JAYLAN ALVAREZ [address], [place], [address] Parker's present location and address for appointment: see chart Parker's emergency contact name and phone number: see chart Parker reported that location is private and safe: Yes Informed Consent: informed of the risks and benefits of Telehealth video care. has the right to refuse video services. If refuses video visit, a [id number] visit will be scheduled. verbalized consent for this video visit: Yes provided consent for any other persons present for visit: N/A If yes, who and relationship to patient: Secure visit: Visit was locked for security and privacy:Yes --------- COGNITIVE BEHAVIORAL THERAPY FOR DEPRESSION (CBT-D): MIDDLE PHASE Time in session (in minutes): 50 SESSION NUMBER: 18 ASSESSMENT Date Instrument Raw Trans Scale 12/31/2024 12:54 PHQ9 20 PHQ9 12/10/2024 12:36 PHQ9 23 PHQ9 11/26/2024 13:10 [...] 21 PHQ9 03/18/2023 10:12 PHQ9 10 PHQ9 DIAGNOSIS: Major Depressive Disorder, Moderate, Recurrent Secondary (if applicable): PTSD, Chronic MENTAL STATUS/BEHAVIORAL OBSERVATIONS Parker was on time and she was dressed appropriate to the context. Parker was oriented x4, and her thought process was linear, logical, and coherent. She described her mood as euthymic and her affect was expressive, stable, and consistent with stated mood. Speech and motor activity fell within normal limits. was polite, cooperative, and engaged. Parker denied suicidal and homicidal ideation, plan, and intent. SESSION CONTENT: In this middle phase session of Cognitive Behavioral Therapy (CBT) for depression, the following therapeutic activities were performed: BRIDGE FROM LAST SESSION Therapist inquired about what the Parker found important or helpful from the last session and if the had any concerns about the last session. Therapist inquired about the degree to which the homework was completed and what was learned from the homework assessment. PRIORITIZED AGENDA The therapist and collaboratively developed a prioritized agenda. BEHAVIORAL STRATEGIES: The following behavioral strategies were discussed during the session: Therapist employed the Guided Discovery method when incorporating cognitive and/or behavioral strategies COLLABORATIVE HOMEWORK ASSIGNMENT: The homework assignment for this session was: thought records focused on thoughts that arise during feelings of abandonment The homework assignment and goal of the assignment was written down. The therapist inquired about Parker's understanding of the homework assignment and its rationale. Therapist and discussed the likelihood that the Parker will do the homework. Specific roadblocks or challenges for doing the homework were discussed. FINAL SUMMARY AND FEEDBACK: reported that when her boyfriend stops answering her and withdraws from the relationship, she experiences feelings of abandonment and her approaching behaviors escalate (calling 20-25x). Parker stated that her boyfriend reminds her of Quintin, who by suicide. She identified cognitive distortions associated with feelings of abandonment (i.e., there is no point, my needs will not be met, no one cares about me, no one shows up for me). Parker added that she continues to have hope that she and her boyfriend can meet eachother's needs in the long-run although she notices the consistent pattern they fall into. PLAN Next session planned for agreed upon date/time of: 01/07 3pm Additional notes regarding scheduling or plan: continue CBT-D /es/ Robert Rodriguez Psy.D. SEXUAL TRAUMA/WOMEN'S PSYCHOLOGIST Signed: 12/31/2024 13:54 ROBERT RODRIGUEZ [facility] [facility] Dec 31, 2024 12:58 PM MENTAL HEALTH DIAGNOSTIC STUDY NOTE: LOCAL TITLE: MENTAL HEALTH DIAGNOSTIC STUDY STANDARD TITLE: MENTAL HEALTH DIAGNOSTIC STUDY NOTE DATE OF NOTE: DEC 31, 2024@12:58:23 ENTRY DATE: DEC 31, 2024@12:58:23 AUTHOR: ROBERT RODRIGUEZ EXP COSIGNER: URGENCY: STATUS: COMPLETED Assessments were sent to the via text/email. These assessments were completed by JAYLAN ALVAREZ on their own device on 12/31/2024 12:54:49 PM. PATIENT HEALTH QUESTIONNAIRE-9 (PHQ-9) The patient [...] Not at all PHQ-9 total score = 20 1-4 = minimal symptoms 5-9= mild symptoms 10-14= moderate symptoms 15-19= moderately severe symptoms 20-27= severe depressive symptoms The patient stated that the depressive symptoms made it extremely difficult to work, take care of things at home, or get along with others. PHQ-9 Total Score (past 180 days): 12/31/2024 20 12/10/2024 23 11/26/2024 21 11/19/2024 23 11/13/2024 23 11/05/2024 24 10/08/2024 18 09/10/2024 21 08/27/2024 24 08/20/2024 24 08/13/2024 14 07/30/2024 18 07/23/2024 18 07/16/2024 23 07/09/2024 23 PTSD CHECKLIST (PCL-5) - WEEKLY Patient reported being bothered by the following over the past week: 1. Disturbing memories: Extremely 2. Disturbing dreams: Extremely 3. Re-experiencing events: Extremely 4. Cued distress: Extremely 5. Cued physical symptoms: Extremely 6. Avoiding internal reminders: Quite a bit 7. Avoiding external reminders: Extremely 8. Trouble with recall: Extremely 9. Negative beliefs: Extremely 10. Blaming self/others: Extremely 11. Negative feelings: Quite a bit 12. [...] PCL-5 Weekly Total Score (past 180 days): 12/31/2024 74 12/10/2024 75 11/26/2024 72 11/19/2024 73 11/13/2024 71 11/05/2024 66 10/08/2024 70 09/10/2024 60 08/27/2024 66 08/20/2024 74 08/13/2024 44 07/30/2024 60 07/23/2024 56 07/16/2024 55 07/09/2024 65 /mat/ Robert TatumDKitty SEXUAL TRAUMA/WOMEN'S PSYCHOLOGIST Signed: 12/31/2024 12:59 ROBERT RODRIGUEZ [facility] [place] [facility]
--- OUTSIDE RECORDS SUMMARY | 2025-01-04 06:00 | XMS_ITS | Encounter Summary ---
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 Date/Time Encounter Type Encounter Description Reason Provider Source Jan 04, 2025 10:00 AM OFFICE O/P EST MOD 30 MIN PRIMARY CARE/MEDICINE ICD-10-CM Z00.00 Encntr for general adult medical exam w/o abnormal findings TRINH FRANCO Junior Encounter Template Text not used by [place] Assessments - Encounter Diagnoses This section includes the primary and secondary diagnoses documented for the Encounter. Date/Time Primary/Secondary Diagnosis Diagnosis Name Provider Source Jan 05, 2025 12:28 PM PRIMARY Encntr for general adult medical exam w/o abnormal findings TRINH FRANCO [place] [facility] Plan of Treatment: Future Appointments (+ 6 months) and Future Tests (+/- 45 days) The Plan of Treatment section includes future care activities for the patient from [facility] [place] [facility] This section includes future appointments and future orders which are active, pending or scheduled. Future Appointments This section includes appointments that were scheduled to occur 6 months from the date of the Encounter, up to a maximum of 20 appointments. The data comes from all [place] treatment facilities. Appointment Date/Time Appointment Type Appointme nt Facility Name Jan 28, 2025 08:00 AM AMBULATORY - [place]ICINE [place] [facility] Jan 28, 2025 02:00 PM AMBULATORY - [place] [facility] Jan 28, 2025 02:00 PM AMBULATORY - [place]ATRY [place] [facility] Jan 31, 2025 03:00 PM AMBULATORY [place] [facility] Feb 03, 2025 08:00 AM AMBULATORY - [place]IC[place] [facility] Feb 16, 2025 03:00 PM AMBULATORY [place] [facility] Feb 22, 2025 02:00 PM AMBUL[place]ORY [place] [facility] Feb 28, 2025 03:00 PM AMBULATORY [place] [facility] Mar 29, 2025 01:00 PM AM[place]UL[place]ORY [place] [facility] Apr 21, 2025 03:30 PM AMBULATORY - MEDICINE [facility] Active, Pending, and Scheduled Orders This section includes a listing of several types of active, pending, and scheduled orders, including clinic medications orders, diagnostic test orders, procedure orders and consult orders; where the start date of the order is 45 days before the date of the Encounter or 45 days after the date of theEncounter. The data comes from all [facility]. Test Date/Time Test Type Test Details Facility Name Dec 27, 2024 04:40 PM Consult Order COMMUNITY CARE-MAMMOGRAPHY FEMALE SCREEN Cons Press Assistant's Choice [place] [facility] Jan 04, 2025 10:20 AM Consult Order COMMUNITY CARE-CITY RECORDER Cons Press Assistant's Choice [place] [facility] Jan 28, 2025 12:00 AM Laboratory - Chemi stry Order VITAMIN D (25-OH) BLOOD (SST-SERUM) SP [facility] Jan 28, 2025 12:00 AM Laboratory - Chemi stry Order VITAMIN B12 BLOOD (SST-SERUM) SP [facility] Jan 28, 2025 12:00 AM Laboratory - Chemi stry Order FOLATE BLOOD (SST-GOLD) SERUM SP [facility] Feb 02, 2025 12:31 PM Consult Order COMMUNITY CARE-GI GENERAL Cons Press Assistant's Choice [facility] Feb 07, 2025 07:58 AM Consult Order OTOLARYNGO LOGY/ENT ONE Cons Press Assistant's Choice [facility] Lab Results: +/- 30 days of [...] Type Comment Dec 23, 2024 02:09 PM [facility] LIVER FUNCTION SERUM Specimen Type: SERUM No comment entered. Ordering Provider: LEANDRA BAEZ V Report Released Date/Time: Dec 23, 2024 01:51 PM Reporting Lab: [address] [address] Performing Lab: [address] [address] PROTEIN,TOTAL 6.9 g/dL 6.4-8.3 ALBUMIN 3.8 g/dL 3.5-5.2 ALKALINE PHOSPHATASE 51 U/L 40-150 AST 20 U/L 5-34 ALT 12 U/L 0-55 BILIRUBIN, TOTAL 0.5 mg/dL 0.2-1.2 Dec 23, 2024 02:09 PM [facility] BASIC METABOLIC PANEL (fasting) SERUM Specime n Type: SERUM No comment entered. Ordering Provider: LEANDRA BAEZ V Report Released Date/Time: Dec 23, 2024 01:51 PM Reporting Lab: [facility] [address] [facility] [address] Performing Lab: [facility] [address] [facility] [address] UREA NITROGEN 19 mg/dL 7-19 GLUCOSE 62 mg/dL L 65-100 SODIUM 138 mmol/L 136-145 POTASSIUM 4.2 mmol/L 3.5-5.1 CHLORIDE 106 mmol/L 98-107 CO2 25 meq/L 22-29 CALCIUM 8.3 mg/dL L 8.4-10.2 CREATININE, Serum 0.90 mg/dL .57-1.11 eGFR(CKD-EPI 2020) 81 mL/min >60 Dec 23, 2024 02:09 PM [facility] CBC AND DIFF (AUTO) BLOOD Specimen Type: BLOO D No comment entered. Ordering Provider: LEANDRA BAEZ V Report Released Date/Time: Dec 23, 2024 01:51 PM Reporting Lab: [facility] [address] [facility] [address] Performing Lab: [address] [address] WBC 6.64 10*3/uL 4.50-11.00 RBC 4.12 10*6/uL [...] 10*3/uL 0.00-0.00 Dec 23, 2024 02:09 PM [facility] TSH SERUM Specimen Type: SERUM No comment entered. Ordering Provider: LEANDRA BAEZ V Report Released Date/Time: Dec 23, 2024 01:51 PM Reporting Lab: [address] [address] Performing Lab: [address] [address] TSH 1.66 u[IU]/mL 0.35-4.94 Vital Signs: All taken on the encounter date This section contains inpatient and outpatient Vital Signs collected on the date of the Encounter. Date/Time Temperature Pulse Blood Pressure Respiratory Rate SP02 Pain Height Weight Body Mass Index Source Jan 04, 2025 10:08 AM 151/105 mm[Hg] [place] [facility] [facility] Jan 04, 2025 10:05 AM 97.2 F 67 /min 18 /min 100 % [facility] Social History: Smoking Status (Most current) and Tobacco Use (All prior to encounter date) This section includes the most current, and the historical, smoking and tobacco- related health factors from the [place] facility where the Encounter took place. Current Smoking Status This section includes the most current smoking, or tobacco-related health factor, from the [place] facility where the Encounter took place. Date/Time Current Smoking Status Comment Claudia tello May 14, 2024 01:00 PM VA-TOBACCO NEVER U SED OTHER TYPE [facility] Tobacco Use History This section includes a history of the smoking, or tobacco-related health factors, that were collected on or before the date of the Encounter. The data comes from the [place] facility where the Encounter took place. Date/Time Smoking Status/Tobacco Use Comment F acility May 14, 2024 01:00 PM VA-TOBACCO NEVER U SED OTHER TYPE [facility] Advance Directives: All historical and current [...] Mar 25, 2023 ADVANCE DIRECTIVE [facility] Encounter Notes: All associated encounter notes This section contains the clinical notes associated to the Encounter. Date/Time Encounter Note(s) Provider Source Jan 04, 2025 10:14 AM PREVENTIVE MEDICINE NURSING NOTE: LOCAL TITLE: CLINICAL REMINDERS/NURSING STANDARD TITLE: PREVENTIVE MEDICINE NURSING NOTE DATE OF NOTE: JAN 04, 2025@10:14 ENTRY DATE: JAN 04, 2025@10:14:46 AUTHOR: CAMILLE RIVERA EXP COSIGNER: URGENCY: STATUS: COMPLETED Influenza Immunization: No influenza vaccination was received during the recent influenza season. Tdap Immunization: The patient declines to receive the recommended dose of Tdap vaccine. Immunization: TDAP Refusal Reason: PATIENT DECISION Patient refuses all immunization(s) in the TDAP group Date Documented: 01/04/25 10:15 [email or web address]/ CAMILLE RIVERA REGISTERED NURSE Signed: 01/04/2025 10:15 CAMILLE RIVERA [facility] Jan 04, 2025 10:14 AM PRIMARY CARE NURSE PRACTITIONER OUTPATIENT NOTE: LOCAL TITLE: NURSE PRACTITIONER OUTPATIENT NOTE STANDARD TITLE: PRIMARY CARE NURSE PRACTITIONER OUTPATIENT NOTE DATE OF NOTE: JAN 04, 2025@10:14 ENTRY DATE: JAN 04, 2025@10:14:29 AUTHOR: TRINH FRANCO EXP COSIGNER: URGENCY: STATUS: COMPLETED Chief complaint: Pt is a 44 who comes in for follow up of medical problems as noted below. HPI: Ankylosing spondylitis Follows with Baez Cont Enbrel as rx'd by Rheum Celebrex PRN HTN BP stable at this time Cont to monitor diarrhea follows with GI at [facility] [address] [facility] Stephania scott in [facility] Allergies Referral to continue care through [facility] takes daily Joselin has allergy to cats and just adopted two kittens Kidney stones Follows with urology Monitor renal function PTSD established with [facility] stable on [place] Takes OCPs for menses reg PMH: Active problems - Computerized Problem List is the source for the followin. Major depressive disorder 2. Chronic post-traumatic stress disorder 3. Exposure to potentially hazardous substance Connect Snomed Code to ICD 10 Code refer to note dated 03/25/23 4. Blood in stool 5. History of dysthymia 6. HTN - Hypertension ([facility] [id number]) 7. Vitamin D Deficiency ([facility] [id number]) 8. GERD - Gastro-Esophageal Reflux Disease ([facility] [id number]) 9. Allergic Rhinitis ([facility] [id number]) 10. History of nephrolithiasis 11. - Ankylosing spondylitis Allergies: Patient has answered NKA The following VA and Non-VA meds were reconciled with patient: Active and Recently Outpatient Medications (excluding Supplies): Active Outpatient Medications Status 1) CETIRIZINE HCL 10MG TAB TAKE ONE TABLET BY MOUTH ONCE DAILY ACTIVE (S) Indication: FOR ALLERGIES 2) CHOLECALCIF 50MCG (D3-2,000UNIT) TAB TAKE ONE TABLET BY ACTIVE MOUTH ONCE DAILY FOR VITAMIN SUPPLEMENTATION Indication: FOR VITAMIN D DEFICIENCY 3) CREON 24,000UNIT EC CAP TAKE 2 CAPSULES BY MOUTH TWICE DAILY ACTIVE 4) ESCITALOPRAM OXALATE 10MG TAB TAKE ONE AND ONE-HALF TABLETS ACTIVE BY MOUTH EVERY EVENING FOR MOOD/DEPRESSION Indication: FOR REPEATED EPISODES OF ANXIETY 5) ETANERCEPT 50MG/ML INJ SURECLICK INJECT 50MG SUBCUTANEOUSLY ACTIVE (S) EVERY FRIDAY Indication: SPONDYLOARTHROPATHY 6) FEXOFENADINE HCL 180MG TAB TAKE ONE TABLET BY MOUTH ONCE ACTIVE DAILY Indication: FOR ALLERGIES 7) VIENVA TAB 28 TAKE 1 TABLET BY MOUTH ONCE DAILY FOR REYNA ACTIVE (S) MENOPAUSE HORMONE TREATMENT Indication: FOR REYNA MENOPAUSE HORMONE TREATMENT Active Non-VA Medications Status 1) Non-VA PANTOPRAZOLE NA 20MG EC TAB 20MG BY MOUTH EVERY ACTIVE MORNING 30 MINUTES BEFORE BREAKFAST Indication: Ulcer 8 Total Medications Allergies: Patient has answered NKA VITAL SIGNS: 97.2 F [36.2 C] (01/04/2025 10:05) 67 (01/04/2025 10:05) 18 (01/04/2025 10:05) 151/105 (01/04/2025 10:08) 6 (12/23/2024 13:36) 61 in [154.9 cm] (09/16/2024 09:09) 147 lb [66.68 kg] (12/23/2024 13:36) BMI: 27.8 ROS: 10 POINT ROS NEGATIVE UNLESS MENTIONED ABOVE IN HPI PHYSICAL EXAM General: No acute distress, speech is clear, forming sentences. CV: S1S2, RRR, no m/r/g Lung: CTAB, no wheeze, rhonchi, or crackles no audible cough Ext: no edema, warm and well perfused bilat. Neuro: CN 2-12 grossly intact Psych: A&Ox3, appropriate mood and affect WBC: 6.64 RBC: 4.12 HGB: 13.5 HCT: 38.8 MCV: 94.2 MCHC: 34.8 RDW: 12.1 PLT: 314 MPV: 9.8 MCH: 32.8 H Neut %: 66.4 Lymph %: 24.2 [place] %: 7.1 Eos %: 1.5 Baso %: 0.5 Neut, Abs: 4.41 Lymph, Abs: 1.61 [place], Abs: 0.47 Eos, Abs: 0.10 Baso, Abs: 0.03 Immature Granulocytes %: 0.3 Immature Granulocytes, Abs: 0.02 NRBC%: 0.0 NRBC#: 0.00 TSH (Access): 1.66 GLUCOSE: 62 L UREA NITROGEN: 19 SODIUM: 138 POTASSIUM: 4.2 CHLORIDE: 106 CO2: 25 CALCIUM: 8.3 L PROTEIN,TOTAL: 6.9 ALBUMIN: 3.8 ALKALINE PHOSPHATASE: 51 SGOT: 20 SGPT: 12 BILIRUBIN,TOT.: 0.5 CREATININE-EGFR: 0.90 eGFR CKD-EPI 2020: 81 Future Clinic Visits 01/07/2025 13:00 [facility] VVC MHC PSYLG 1 01/28/2025 14:00 CWM V01 [facility] ADM MH 14 04/21/2025 15:30 [facility] RHEUMATOLOGY MD 2 ASSESSMENT AND PLAN: 1)Encounter for adult physical without abnormal findings -Encouraged continued healthy diet and exercise -Routine labs done reviewd with vetern check in 1 year -Counseled on STI prevention offered testing declined -[facility] Today I spent 25 minutes on some or all of the following: chart review, history, physical examination, treatment planning education and counseling of the patient/family/home care music therapist, placing orders, communicating with other health care providers, and documentation in the electronic health record Return to clinic to see me in 12 months, RTC sooner if needed. Clinical Reminders /Intentions/Contrace ption: The patient is medically able to conceive. The patient states that they are not . Action following medication review: Patient's provider notified of medications that are known/potential teratogens. Name of Provider notified: ocp The patient does not desire within the next year. The patient is using either a contraceptive pill, ring or patch to prevent . Folic Acid for Women [...] this [facility] (local) and dispensed from another VA or [facility] facility (remote) as well as [...] CLAUDIA DE LOS SANTOS Nurse Practitioner Signed: 01/05/2025 12:27 TRINH FRANCO [place] [facility]
--- OUTSIDE RECORDS SUMMARY | 2025-01-28 10:00 | XMS_ITS | Encounter Summary ---
Author Name [facility] [place] [facility] [place] Address [address] [place] [address] Care Team Providers Care Manager Performance Improvement Name Role Phone TRINH FRANCO Primary Care [...] Patient's Relationship to Policy [employer] ([phone]) PRESCRIPT ION [facility] Jun 07, 2022 [id number] PATIENT Selected Encounter This section includes the information on record at [place] for the Encounter. Date/Time Encounter Type Encounter Description Reason Provider Source Jan 28, 2025 02:00 PM BRIEF EMOTIONAL/BEHAV [facility] - IND ICD-10-CM F43.12 Post-traumatic stress disorder, chronic MOISES BARRETT [facility] Encounter Template Text not used by [place] Assessments - Encounter Diagnoses This section includes the primary and secondary diagnoses documented for the Encounter. Date/Time Primary/Secondary Diagnosis Diagnosis Name Provider Source Jan 28, 2025 02:31 PM PRIMARY Post-traumatic stress disorder, chronic MOISES BARRETT [facility] Jan 28, 2025 02:31 PM SECONDARY Generalized anxiety disorder MOISES BARRETT [facility] Jan 28, 2025 02:31 PM SECONDARY Major depressv disorder, recurrent severe w/o psych features MOISES BARRETT [facility] Plan of Treatment: Future Appointments (+ 6 months) and Future Tests (+/- 45 days) The Plan of Treatment section includes future care activities for the patient [facility] [place] [facility] This section includes future appointments and future orders which are active, pending or scheduled. Future Appointments This section includes appointments that were scheduled to occur 6 months from the date of the Encounter, up to a maximum of 20 appointments. The data comes from all [facility] [address] Appointment Date/Time Appointment Type Appointme nt Facility Name Jan 31, 2025 03:00 PM AMBULAT[facility] Feb 03, 2025 08:00 AM AMBULATORY - MEDICINE [place] [facility] Feb 16, 2025 03:00 PM [facility] Feb 22, 2025 02:00 PM [facility] Feb 28, 2025 03:00 PM [facility] Mar 29, 2025 01:00 PM AMBULATORY - MEDICINE [facility] N[facility] Apr 21, 2025 03:30 PM AMBULATORY MEDICINE [facility] Active, Pending, and Scheduled Orders This section includes a listing of several types of active, pending, and scheduled orders, including clinic medications orders, diagnostic test orders, procedure orders and consult orders; where the start date of the order is 45 days before the date of the Encounter or 45 days after the date of theEncounter. The data comes from all [facility] [address]. Test Date/Time Test Type Test Details Facility Name Dec 27, 2024 04:40 PM Consult Order COMMUNITY CARE-MAMMOGRAPHY FEMALE SCREEN Cons Baggage Handler's Choice [facility] Jan 04, 2025 10:20 AM Consult Order COMMUNITY CARE-DOLL REPAIRER Cons Baggage Handler's [facility] Jan 28, 2025 12:00 AM Laboratory - Chemi stry Order VITAMIN D (25-OH) BLOOD (SST-SERUM) SP [facility] Jan 28, 2025 12:00 AM Laboratory - Chemi stry Order VITAMIN B12 BLOOD (SST-SERUM) SP [facility] Jan 28, 2025 12:00 AM Laboratory - Chemi stry Order FOLATE BLOOD (SST-GOLD) SERUM SP [facility] Feb 02, 2025 12:31 PM Consult Order COMMUNITY CARE-GI GENERAL Cons Baggage Handler's Choice [facility] Feb 07, 2025 07:58 AM Consult Order OTOLARYNGO LOGY/ENT ONE Cons Baggage Handler's Choice [facility] Advance Directives: All historical and current Section Date Range: From patient's date of to the date document was created. This section includes ALL of a patient's completed or amended [place] Advance and Rescinded Directives. The entries below indicate that a directive exists for the patient, but an actual copy is not included with this document. The data comes from all [place] facilities. Date Advance Directives Provider Source Mar 25, 2023 ADVANCE DIRECTIVE PETROS MOTLEY Encounter Notes: All associated encounter notes This section contains the clinical notes associated to the Encounter. Date/Time Encounter Note(s) Provider Source Jan 28, 2025 02:12 PM MENTAL HEALTH CONS ULT: LOCAL TITLE: TELEMENTAL HEALTH CONSULT NOTE STANDARD TITLE: MENTAL HEALTH CONSULT DATE OF NOTE: JAN 28, 2025@14:12 ENTRY DATE: JAN 28, 2025@14:13:03 AUTHOR: MOISES BARRETT EXP COSIGNER: URGENCY: STATUS: COMPLETED Clinical services provided by Moises Barrett MD. Clinical services are being provided via [employer] from the [facility] ([place]) to the 's remote site located at the [facility]. Clinical Service Provided: Psychiatric Evaluation Service Delivery Method: VVC/Secq-Xgz-Bprg Length of Service: 90 minutes, which includes time spent before the visit reviewing the chart, time spent during the visit and time spent after the visit on documentation. Primary Diagnosis: PTSD, MDD, KEYA For a complete progress note including a mental status examination and risk assessment, please see the [facility] medical record (accessible through [facility]). /es/ MOISES BARRETT MD ATTENDING PSYCHIATRIST, PSYCHIATRY Signed: 01/28/2025 14:33 MOISES BARRETT [facility]
--- OUTSIDE RECORDS SUMMARY | 2025-01-28 10:00 | XMS_ITS ---
Author Name [facility] ([place]) Organization [facility]) Address [address] [place] [address] Care Team Providers Care Complex Manager Name Role Phone TRINH FRANCO Primary [...] Patient's Relationship to Policy [facility] ([id number]) [facility] Jun 07, 2022 [id number] Jelani ALVAREZ PATIENT Selected Encounter This section includes the information on record at ID for the Encounter. Date/Time Encounter Type Encounter Description Reason Pro vider Source Jan 28, 2025 02:00 PM Outpatient Encounter ADMIN PAT ACTIVTIES (MASNONCT) IHE Encounter Template Text not used by ID Plan of Treatment: Future Appointments (+ 6 [...] 31, 2025 03:00 PM AMBULATORY - [facility]YCHIATRY [facility] Feb 03, 2025 08:00 AM AMBULATORY - MEDICINE [facility] Feb 16, 2025 03:00 PM AMBULATORY - PSYCHIATRY [facility] Feb 22, 2025 02:00 PM AMBULATORY - PSYCHIATRY ID [facility] Feb 28, 2025 03:00 PM [facility] Mar 29, 2025 01:00 PM AMBULATORY - MEDIC[facility] Apr 21, 2025 03:30 PM AMBULATORY - MEDICINE [facility] NTRL [facility] Active, Pending, and [...] of theEncounter. The data comes from all [facility]. Test Date/Time Test Type Test Details Facility Name Dec 27, 2024 04:40 PM Consult Order COMMUNITY CARE-MAMMOGRAPHY FEMALE SCREEN Cons Sterile Tech's Choice [facility] Jan 04, 2025 10:20 AM Consult Order COMMUNITY CARE-OTA Cons [facility]ile [facility]'s [facility] Jan 28, 2025 12:00 AM Laboratory - Chemi stry Order VITAMIN D (25-OH) BLOOD (SST-SERUM) [facility] CN[facility]L [facility] Jan 28, 2025 12:00 AM Laboratory - Chemi stry Order VITAMIN B12 BLOOD (SST-SERUM) SP ID CNTRL [facility]STR[facility] Jan 28, 2025 12:00 AM Laboratory - Chemi stry Order FOLATE BLOOD (SST-GOLD) SERUM [facility] CNTRL [facility] Feb 02, 2025 12:31 PM Consult Order COMMUNITY CARE-GI GENERAL Cons [facility]ile Tech's [facility] Feb 07, 2025 07:58 AM Consult Order OTOLARYNGO LOGY/ENT ONE Cons Sterile Tech's Choice [facility] Social History: Smoking Status (Most current) [...] PM VA-TOBACCO NEVER U SED OTHER TYPE [facility] Tobacco Use History This section includes a history of the smoking, or tobacco-related health factors, that were collected on or before the date of the Encounter. The data comes from the ID facility where the Encounter took place. Date/Time Smoking Status/Tobacco Use Comment F acility May 14, 2024 01:00 PM VA-TOBACCO NEVER U SED OTHER TYPE [facility] Advance Directives: [...] Mar 25, 2023 ADVANCE DIRECTIVE [facility] Encounter Notes: All associated encounter notes This section contains the clinical notes associated to the Encounter. Date/Time Encounter Note(s) Provider Source Jan 28, 2025 02:34 PM ACCOUNTING OF DISCLOSURES NOTE: LOCAL TITLE: STATE PRESCRIPTION DRUG MONITORING PROGRAM (SPDMP) STANDARD TITLE: ACCOUNTING OF DISCLOSURES NOTE DATE OF NOTE: JAN 28, 2025@14:34 ENTRY DATE: JAN 28, 2025@14:34:40 AUTHOR: MOISES BARRETT COSIGNER: URGENCY: STATUS: COMPLETED State Prescription Drug Monitoring Program (SPDMP) Review The following State Prescription Drug Monitoring Program was queried for this patient: [place] Report Number: The purpose of this query was a part of the medication reconciliation process for the: Prior to initial consultation visit. The findings of the query are as follows: No duplicate therapy prescriptions for controlled substances outside the [facility] were found. /mat/ MOISES BARERTT MD ATTENDING PSYCHIATRIST, PSYCHIATRY Signed: 01/28/2025 14:35 MOISES BARRETT ID CNTRL W[facility]N [facility] Jan 28, 2025 02:21 PM MENTAL HEALTH DIAGNOSTIC STUDY NOTE: LOCAL TITLE: MENTAL HEALTH DIAGNOSTIC STUDY STANDARD TITLE: MENTAL HEALTH DIAGNOSTIC STUDY NOTE DATE OF NOTE: JAN 28, 2025@14:21:07 ENTRY DATE: JAN 28, 2025@14:21:07 AUTHOR: MOISES BARRETT EXP COSIGNER: URGENCY: STATUS: COMPLETED These assessments were completed by ERENDIRA ALVAREZ via provider direct entry on 01/28/2025 2:20:32 PM. PATIENT HEALTH QUESTIONNAIRE-9 (PHQ-9) The patient reported symptoms consistent with a major depressive episode. The patient answered the following questions as indicated: Over the last two weeks, how often have you been bothered by any of the following problems: 1. Little interest or pleasure in doing things: More than half the days 2. Feeling down, depressed or hopeless: More than half the days 3. Trouble falling or staying asleep or sleeping too much: More than half the days 4. Feeling tired or having little energy: Nearly every day 5. Poor appetite or over-eating: Nearly every day 6. Feeling bad about yourself - or that you are a failure, or have let yourself or your family down: More than half the days 7. Trouble concentrating on things, such as reading the newspaper or watching television: Nearly every day 8. Moving or speaking so slowly that other people could have noticed. Or the opposite - being so fidgety or restless that you have been moving around a lot more than usual: Several Days 9. Thoughts that you would be better off , or of hurting yourself in some way: Not at all PHQ-9 total score = 18 1-4 = minimal symptoms 5-9= mild symptoms 10-14= moderate symptoms 15-19= moderately severe symptoms 20-27= severe depressive symptoms How difficult have these problems made it for you to do work, difficult to work, take care of things at home, or get along with others: very. PHQ-9 Total Score (past 180 days): 01/28/2025 18 12/31/2024 20 12/10/2024 23 11/26/2024 21 11/19/2024 23 11/13/2024 23 11/05/2024 24 10/08/2024 18 09/10/2024 21 08/27/2024 24 08/20/2024 24 08/13/2024 14 GENERAL ANXIETY DISORDER-7 (KEYA-7) Patient reported being bothered by the following over the last two weeks: 1. Feeling nervous, anxious or on edge: Nearly every day 2. Not being able to stop or control worrying: Nearly every day 3. Worrying too much about different things: Nearly every day 4. Trouble relaxing: Nearly every day 5. Feeling restless (hard to sit still): Several days 6. Becoming easily annoyed or irritable: Nearly every day 7. Afraid as if something awful might happen: Nearly every day KEYA-7 total score = 19 0-4=minimal symptoms 5-9=mild symptoms 10-14=moderate symptoms 15-21=severe symptoms The patient stated that the anxiety symptoms made it very difficult to work, take care of things at home, or get along with others. PRIMARY CARE PTSD SCREEN FOR DSM-5 (PC-PTSD-5) The patient answered the following questions as indicated: Sometimes things happen to people that are unusually or especially frightening, horrible, or traumatic. For example: * a serious accident or fire * a physical or sexual assault or abuse * an earthquake or flood * a war * seeing someone be killed or seriously injured * having a loved one through homicide or suicide. Have you ever experienced this kind of event: Yes In the past month, have you: 1. Had nightmares about the event(s) or thought about the event(s) when you did not want to: No 2. Tried hard not to think about the event(s) or went out of your way to avoid situations that reminded you of the event(s): Yes 3. Been constantly on guard, watchful or easily startled: Yes 4. Ponce numb or detached from people, activities, or your surroundings: No 5. Ponce guilty or unable to stop blaming self or others for the event(s) or any problems the event(s) may have caused: No PC-PTSD-5 score = 2 PC-PTSD-5 result = NEGATIVE PC-PTSD-5 scores range from 0 to 5. The screening result is considered positive if the score >= 4. /mat/ MOISES BARRETT MD ATTENDING PSYCHIATRIST, PSYCHIATRY Signed: 01/28/2025 14:35 MOISES BARRETT ID CNTRL [facility] Jan 28, 2025 02:06 PM TELEHEALTH NOTE: LOCAL TITLE: ID VIDEO CONNECT PSYCHIATRIST NOTE STANDARD TITLE: TELEHEALTH NOTE DATE OF NOTE: JAN 28, 2025@14:06 ENTRY DATE: JAN 28, 2025@14:06:04 AUTHOR: MOISES BARRETT EXP COSIGNER: URGENCY: STATUS: COMPLETED ======= MENTAL HEALTH OUTPATIENT CONSULT NOTE ======= === ENCOUNTER DETAILS === Attending: Moises Barrett MD Duration: 90 minutes, which includes time spent before the visit reviewing the chart, time spent during the visit and time spent after the visit on documentation. Chief Complaint: The medication makes me tired, but it helps. Setting: consented to be seen via synchronous audio-visual modality through [facility]. Protocols for privacy and confidentiality in place. Confirmed 's location and contact number for emergency. Session locked. Address: [place] [address] === PATIENT ID === ERENDIRA ALVAREZ is a 44 year old FEMALE, no service connection for mental health, with a history of PTSD, depression, previously in treatment with Dr. Louie who presents to the clinic for psychiatric evaluation. === SUBJECTIVE === The shares that she has been taking lexapro as prescribed with some positive benefit. She notes side effects including fatigue and weight gain, and plans to change the administration time of her SSRI to earlier in the evening given her morning grogginess. She has been trialed on vienva due to perimenopausal symptoms and has not seen effect from the medication. Erendira participates in therapy with Dr. Price and finds the sessions to be helpful. PHQ9/GAD7 performed today, with significant symptoms of depression and anxiety noted. We discussed her current regimen at length and agreed to a direct switch from lexapro to fluoxetine; risks and benefits discussed at length with the patient expressing understanding and agreement. She is aware of the plan to discontinue lexapro upon receipt and initiation of fluoxetine, and to take the medication in the morning with the goal of decreased fatigue and more weight neutrality - Ms. Alvarez reports a 30 pound weight gain since 2023. The patient is open to lifestyle modifications, therapy options, and medication options as part of the treatment regimen. Denies SI/HI/AVH/no manic or psychotic symptoms. Please see below for further details regarding psychiatry ROS. Psychiatry ROS: DEPRESSION: The patient reported symptoms consistent with a major depressive episode. The patient answered the following questions as indicated: Over the last two weeks, how often have you been bothered by any of the following problems: 1. Little interest or pleasure in doing things: More than half the days 2. Feeling down, depressed or hopeless: More than half the days 3. Trouble falling or staying asleep or sleeping too much: More than half the days 4. Feeling tired or having little energy: Nearly every day 5. Poor appetite or over-eating: Nearly every day 6. Feeling bad about yourself - or that you are a failure, or have let yourself or your family down: More than half the days 7. Trouble concentrating on things, such as reading the newspaper or watching television: Nearly every day 8. Moving or speaking so slowly that other people could have noticed. Or the opposite - being so fidgety or restless that you have been moving around a lot more than usual: Several Days 9. Thoughts that you would be better off , or of hurting yourself in some way: Not at all PHQ-9 total score = 18 1-4 = minimal symptoms 5-9= mild symptoms 10-14= moderate symptoms 15-19= moderately severe symptoms 20-27= severe depressive symptoms How difficult have these problems made it for you to do work, difficult to work, take care of things at home, or get along with others: very. ANXIETY: Patient reported being bothered by the following over the last two weeks: 1. Feeling nervous, anxious or on edge: Nearly every day 2. Not being able to stop or control worrying: Nearly every day 3. Worrying too much about different things: Nearly every day 4. Trouble relaxing: Nearly every day 5. Feeling restless (hard to sit still): Several days 6. Becoming easily annoyed or irritable: Nearly every day 7. Afraid as if something awful might happen: Nearly every day KEYA-7 total score = 19 PANIC ATTACKS: denies PTSD: memories of mortuary affairs every couple of days - PCL-5 screening negative at this time. === MEDICATIONS === Active Outpatient Medications (including Supplies): Active Outpatient Medications Status 1) CETIRIZINE [...] ONCE ACTIVE (S) DAILY Indication: FOR ALLERGIES 7) PANTOPRAZOLE NA 20MG EC TAB TAKE ONE TABLET BY MOUTH EVERY ACTIVE (S) MORNING 30 MINUTES BEFORE BREAKFAST Indication: FOR EXCESSIVE PRODUCTION OF STOMACH ACID 8) VIENVA TAB 28 TAKE 1 TABLET BY MOUTH ONCE DAILY FOR REYNA ACTIVE (S) MENOPAUSE HORMONE TREATMENT Indication: FOR REYNA MENOPAUSE HORMONE TREATMENT === ALLERGIES === Patient has answered NKA === VITALS === B/P:138/85 (01/05/2025 12:25) Temperature:97.2 F [36.2 C] (01/04/2025 10:05) Pulse:67 (01/04/2025 10:05) Respiration:18 (01/04/2025 10:05) HT:61 in [154.9 cm] (09/16/2024 09:09) WT:147 lb [66.68 kg] (12/23/2024 13:36) Pain:6 (12/23/2024 13:36) BMI:BMI: 27.8 === PAST PSYCHIATRIC HX === Outpatient psychiatrist/national sales associate: Dr. Louie (psychiatry); Dr. Price (therapy) Historical Diagnosis: PTSD, depression, anxiety Medication trials: lexapro (fatigue), wellbutrin (ineffective) Hospitalizations: denies Suicide attempts: denies History of trauma, abuse, neglect or exploitation: see above, otherwise denies === PAST MEDICAL HX === HTN, GERD, ankylosing spondylitis === SOCIAL HX === Born/raised: Born and raised in [place], lived with both parents and brother. Graduated HS, describes childhood as financial needs met, but not supportive. 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 x1, no other children. Feels safe at home, well treated, well respected. === SUBSTANCE USE HX === Alcohol: every few months Nicotine: denies current use Drugs: denies Herbal: denies Caffeine: one coffee per day === FAMILY HX === denies family history of suicide, mental illness, AUD, OUD === HX === [phone], [employer], +active combat, honorably discharged. === LABS === Specimen: BLOOD. LEX 0703 [id number] Specimen Collection Date: Dec 23, 2024@14:09 Test name Result units Ref. range Site Code WBC 6.64 10*3/uL 4.50 - 11.00 [631] RBC 4.12 10*6/uL 3.93 - 5.16 [631] HGB 13.5 g/dL 12 - 15.2 [631] HCT 38.8 % 36.6 - 45.6 [631] MCV 94.2 fl 82 - 99 [631] MCH 32.8 H pg 26.2 - 32.6 [631] MCHC 34.8 g/dL 30.8 - 35.1 [631] RDW-CV 12.1 % 12.0 - 16.0 [631] PLT 314 10*3/uL 140 - 360 [631] MPV 9.8 fL 9.2 - 12.4 [631] NEUT % 66.4 % 43.7 - 75.8 [631] LYMPH % 24.2 % 14.0 - 42.3 [631] MONO % 7.1 % 5.1 - 13.7 [631] EOS % 1.5 % 0.4 - 6.8 [631] BASO % 0.5 % 0.1 - 2.0 [631] IMMATURE GRAN % 0.3 % 0.0 - 0.7 [631] NRBC % 0.0 % 0.0 - 0.0 [631] NEUT, ABS 4.41 10*3/uL 2.20 - 7.60 [631] LYMPH, ABS 1.61 10*3/uL 1.00 - 3.20 [631] MONO, ABS 0.47 10*3/uL 0.30 - 1.10 [631] EOS, ABS 0.10 10*3/uL 0.03 - 0.44 [631] BASO, ABS 0.03 10*3/uL 0.01 - 0.13 [631] IMMATURE GRAN, ABS 0.02 10*3/uL 0.00 - 0.06 [631] NRBC, ABS 0.00 10*3/uL 0.00 - 0.00 [631] Reporting Lab: [facility] [CLIA# [id number]] [address] [place] [phone] Report Released Date/Time: Dec 23, 2024@15:48 Provider: LEANDRA BAEZ V Specimen: SERUM. [facility] [id number] Specimen Collection Date: Dec 23, 2024@14:09 Test name Result units Ref. range Site Code TSH 1.66 uIU/mL 0.35 - 4.94 [631] Reporting Lab: [facility] [CLIA# [id number]] [address] [place] [address] Report Released Date/Time: Dec 23, 2024@15:43 Provider: LEANDRA BAEZ V Specimen: SERUM. 0703 [id number] Specimen Collection Date: Dec 23, 2024@14:09 Test name Result units Ref. range Site Code CALCIUM 8.3 L mg/dL 8.4 - 10.2 [631] CREATININE, Serum 0.90 mg/dL .57 - 1.11 [631] eGFR(CKD-EPI 2020) 81 mL/min Ref: >=60 [631] SODIUM 138 mmol/L 136 - 145 [631] POTASSIUM 4.2 mmol/L 3.5 - 5.1 [631] CHLORIDE 106 mmol/L 98 - 107 [631] CO2 25 mEq/L 22 - 29 [631] UREA NITROGEN 19 mg/dL 7 - 19 [631] GLUCOSE 62 L mg/dL 65 - 100 [631] PROTEIN,TOTAL 6.9 g/dL 6.4 - 8.3 [631] ALBUMIN 3.8 g/dL 3.5 - 5.2 [631] ALKALINE PHOSPHATASE 51 U/L 40 - 150 [631] AST 20 U/L 5 - 34 [631] BILIRUBIN, TOTAL 0.5 mg/dL 0.2 - 1.2 [631] ALT 12 U/L 0 - 55 [631] Reporting Lab: [facility] [CLIA# [id number]] [address] [place] [phone] Report Released Date/Time: Aug 19, 2024@14:46 Provider: LEANDRA BAEZ V Specimen: BLOOD. HE [id number] Specimen Collection Date: Aug 19, 2024@14:32 Test name Result units Ref. range Site Code WBC 6.15 10*3/uL 4.50 - 11.00 [631] RBC 3.96 10*6/uL 3.93 - 5.16 [631] HGB 13.2 g/dL 12 - 15.2 [631] HCT 38.1 % 36.6 - 45.6 [631] MCV 96.2 fl 82 - 99 [631] MCH 33.3 H pg 26.2 - 32.6 [631] MCHC 34.6 g/dL 30.8 - 35.1 [631] RDW-CV 11.6 L % 12.0 - 16.0 [631] PLT 295 10*3/uL 140 - 360 [631] Reporting Lab: [facility] W[facility]N [facility] [CLIA# [id number]] [address] [place] [phone] Report Released Date/Time: Aug 19, 2024@16:41 Provider: LEANDRA BAEZ V Specimen: SERUM. [facility] [id number] Specimen Collection Date: Aug 19, 2024@14:32 Test name Result units Ref. range Site Code VITAMIN D (25-OH) 18 L ng/mL 20 - 50 [631] Eval: ____ Eval: Vitamin D (ng/mL) Health Status Eval: ---- Eval: <12 Associated with Vitamin D Eval: deficiency, leading to rickets Eval: in infants and children and Eval: osteomalacia in adults Eval: Eval: 12-20 Generally considered inadequate Eval: for both bone and overall health Eval: in healthy individuals. Eval: Eval: >= 20 Generally considered adequate for Eval: bone and overall health in healthy Eval: individuals Eval: Eval: >50 Emerging evidence links potential Eval: adverse effects to such levels, Eval: particularly >60 ng/mL. Eval: Eval: REFERENCE: [place] [employer], Food and Nutrition Board. Dietary Eval: reference intakes for calcium and vitamin D. [place], [place]. The National Eval: Academy Press 2010. Reporting Lab: [facility] [CLIA# [id number]] [address] [place] [phone] Report Released Date/Time: Aug 19, 2024@16:24 Provider: LEANDRA BAEZ V Specimen: SERUM. [id number] Specimen Collection Date: Aug 19, 2024@14:32 Test name Result units Ref. range Site Code CALCIUM 9.1 mg/dL 8.5 - 10.2 [631] CREATININE, Serum 0.80 mg/dL 0.50 - 1.40 [631] eGFR(CKD-EPI 2020) >90 mL/min Ref: >=60 [631] SODIUM 136 mmol/L 135 - 145 [631] POTASSIUM 4.4 mmol/L 3.5 - 5.0 [631] CHLORIDE 104 mmol/L 100 - 110 [631] CO2 24 mEq/L 20 - 30 [631] UREA NITROGEN 15 mg/dL 7 - 25 [631] GLUCOSE 84 mg/dL 65 - 100 [631] PROTEIN,TOTAL 7.0 g/dL 6.0 - 8.3 [631] ALBUMIN 3.7 g/dL 3.5 - 5.0 [631] ALKALINE PHOSPHATASE 49 U/L 40 - 150 [631] AST 15 U/L 5 - 34 [631] BILIRUBIN, TOTAL 0.4 mg/dL 0.2 - 1.2 [631] ALT 14 U/L <6 - 55 [631] Reporting Lab: [facility] [CLIA# [id number]] [address] [place] [address] Report Released Date/Time: May 13, 2024@13:20 Provider: LEANDRA BAEZ V Specimen: BLOOD. [employer] 24 [id number] Specimen Collection Date: May 10, 2024@08:51 Test name Result units Ref. range Site Code R-[id number]-[id number] (o) Negative Ref: Negative [84420] T-SPOT-PNLA 0 [08919] T-SPOT-PNLB 2 [03606] A-WHNL-GBNQCPR Passed [83532] V-EOSW-GHEMDDL Passed [63052] Comment: A negative test result does not [...] test. For additional information, please refer to http://education.[employer].com/faq/RDV616 (This link is being provided for informational/ educational purposes only.) Test Performed by Gaetano Thomas, [employer] [facility], [address] [place] [address] Rodger Bender M.D., Ph.D., Director of Laboratories , [place] [id number] TEST PERFORMED AT: , Reporting Lab: [facility] [CLIA# [id number]] [address] [place] [phone] Report Released Date/Time: May 10, 2024@11:36 Provider: LEANDRA BAEZ V Specimen: SERUM. [facility] [id number] Specimen Collection Date: May 10, 2024@08:51 Test name Result units Ref. range Site Code HEPATITIS C ANTIBODY NON-REACTIVE Ref: NON-REACTIVE [631] Comment: Hep C Ab: No HCV antibody detected. If recent infection is suspected or other evidence suggests HCV infection, consider HCV nucleic acid testing Reporting Lab: [facility] [CLIA# [id number]] [address] [place] [phone] Report Released Date/Time: May 10, 2024@13:03 Provider: LEANDRA BAEZ V Specimen: SERUM. [facility] [id number] Specimen Collection Date: May 10, 2024@08:51 Test name Result units Ref. range Site Code TSH 1.38 uIU/mL 0.35 - 5.00 [631] Reporting Lab: [facility] [CLIA# [id number]] [address] [place] [phone] Report Released Date/Time: May 11, 2024@11:02 Provider: LEANDRA BAEZ V Specimen: SERUM. V 24 [id number] Specimen Collection Date: May 10, 2024@08:51 Test name Result units Ref. range Site Code HBsAb REACTIVE Ref: Non Reactive [689] HEPATITIS B CORE (Total) AbNon Reactive Ref: Non Reactive [689] Eval: Hepatitis B Core Ab (Total) Comment: Hep B Core, Total: This test [...] B surface antibodies are not yet detectable. Reporting Lab: [facility] [CLIA# [id number]] [address] [place] [phone] Report Released Date/Time: May 10, 2024@11:25 Provider: LEANDRA BAEZ V Specimen: SERUM. [place] [id number] Specimen Collection Date: May 10, 2024@08:51 Test name Result units Ref. range Site Code CREATININE, Serum 0.75 mg/dL 0.50 - 1.40 [631] eGFR(CKD-EPI 2020) >90 mL/min Ref: >=60 [631] SODIUM 136 mmol/L 135 - 145 [631] POTASSIUM 4.4 mmol/L 3.5 - 5.0 [631] CHLORIDE 107 mmol/L 100 - 110 [631] CO2 21 mEq/L 20 - 30 [631] UREA NITROGEN 20 mg/dL 7 - 25 [631] GLUCOSE 83 mg/dL 65 - 100 [631] PO4 4.0 mg/dL 2.5 - 5.0 [631] PROTEIN,TOTAL 6.3 g/dL 6.0 - 8.3 [631] ALBUMIN 3.5 g/dL 3.5 - 5.0 [631] ALKALINE PHOSPHATASE 46 U/L 40 - 150 [631] AST 14 U/L 5 - 34 [631] BILIRUBIN, TOTAL 0.4 mg/dL 0.2 - 1.2 [631] ALT 11 U/L <6 - 55 [631] URIC ACID 4.4 mg/dL 2.6 - 6 [631] Reporting Lab: [facility] [CLIA# [id number]] [address] [place] [address] Report Released Date/Time: May 12, 2024@09:09 Provider: LEANDRA BAEZ V Specimen: SERUM. [employer] [id number] Specimen Collection Date: May 10, 2024@08:51 Test name Result units Ref. range Site Code JOSEPH SCREEN NEG Ref: NEG <1:40 [690] Reporting Lab: [facility] [CLIA# [id number]] [address] [place] [address] Report Released Date/Time: May 13, 2024@08:54 Provider: LEANDRA BAEZ V Specimen: BLOOD. [facility] 9010 Specimen Collection Date: May 10, 2024@08:51 Test name Result units Ref. range Site Code HLA-B27 Positive Ref: Negative [85761] Comment: normalcy status - Abnormal Test Performed by Gaetano Thomas, Martha Gu[employer] [facility], [address] [place] [address], [place] Rodger Bender M.D., Ph.D., Director of Laboratories , CLIA [id number] TEST PERFORMED AT: , Reporting Lab: [facility] [CLIA# [id number]] [address] [place] [phone] Report Released Date/Time: May 10, 2024@11:19 Provider: LEANDRA BAEZ V Specimen: BLOOD. [id number] Specimen Collection Date: May 10, 2024@08:51 Test name Result units Ref. range Site Code WBC 5.62 K/cmm 4.50 - 11.00 [631] RBC 3.76 L M/cmm 3.93 - 5.16 [631] HGB 12.3 g/dL 12 - 15.2 [631] HCT 35.8 L % 36.6 - 45.6 [631] MCV 95.2 fl 82 - 99 [631] MCH 32.7 H pg 26.2 - 32.6 [631] MCHC 34.4 g/dL 30.8 - 35.1 [631] RDW-CV 11.8 L % 12.0 - 16.0 [631] PLT 322 K/cmm 140 - 360 [631] === MSE === APPEARANCE: Appropriately attired, good hygiene, good eye contact BEHAVIOR: Cooperative, calm, open SPEECH: Normal rate, rhythm, prosody MOOD: Okay AFFECT: Appears congruent with stated mood, full range of affect THOUGHT PROCESS: Linear, logical, goal-oriented THOUGHT CONTENT: No psychotic content elicited. No SI/HI/AVH/delusions/paranoia expressed INSIGHT/JUDGMENT: Fair/Fair COGNITIVE: Appears grossly intact at this appointment === RISK ASSESSMENT === Risk Factors: [ ] no [ x ] yes Anxiety/agitation [ x ] no [ ] yes Substance Abuse [ ] no [ x ] yes Access to means to carry out a plan (including firearms) [ x ] no [ ] yes Hopelessness [ x ] no [ ] yes Acute/recent/impending loss [ x ] no [ ] yes Worsening medical condition [ x ] no [ ] yes History of impulsivity [ x ] no [ ] yes Psychosis [ x ] no [ ] yes Chronic pain (pain score 6+) [ ] no [ x ] yes Passive SI (historical or current) [ ] no [ x ] yes History of trauma [ x ] no [ ] yes Recent discharge from inpatient unit [ x ] no [ ] yes Family history of suicide Protective Factors: [ ] no [ x ] yes Social Supports [ ] no [ x ] yes Therapeutic [place] [ ] no [ x ] yes Dependent Children/Family Responsibility [ ] no [ x ] yes Future-oriented Plans and Commitments [ ] no [ ] yes Spirituality [ ] no [ x ] yes Good Problem Solving Skills Assessment of Immediate Suicide Risk: [ x ] Low [ ] Moderate [ ] High Assessment of Chronic Suicide Risk: [ x ] Low [ ] Moderate [ ] High Assessment of Violence Risk: [ x ] Low [ ] Moderate [ ] High The patient appears to be at low risk for suicide at this time and is appropriate for continued outpatient care. While the patient has several risk factors, numerous protective factors are present including identified reasons for living, help seeking, denies plan for suicide, hopeful for the future, meaningful relationship with children. Safety: The has agreed to call 911 or go to the closest ER if feeling unsafe and/or having any suicidal or homicidal ideations. === DIAGNOSIS === PTSD, MDD, KEYA === ASSESSMENT/PLAN === #General - Will continue to build therapeutic alliance with the - Will consider obtaining future collateral from patient's family as needed - Supportive therapy as part of treatment - Recommend 3-5 days per week of 20-30 minutes of cardiovascular exercise - pt agrees to set this goal. Will monitor - Nutrition discussed at length, with recommendation of limiting fried foods, processed foods, excess sugars, excess carbohydrates, large meals, meals close to bedtime and encouraged consumption of whole grains, small/balanced meals, vegetables - Sleep hygiene discussed at length - Labs reviewed; vit D low (07/2024), TSH WNL (12/2024), additional tests ordered #PTSD/Depression/Anxiety - Will plan for direct switch from lexapro 15mg PO daily to fluoxetine 60mg PO daily given pt's report of weight gain and fatigue; risks and benefits discussed with the who expresses understanding and agreement - Pt taking vienva due to likely perimenopausal symptoms - will continue to monitor for potential impact on mood symptoms - PHQ9: 18 - GAD7: 19 - PDMP last queried 01/2025 - Recommend participation in therapy; [facility] - Resource provided for [facility] PTSD website #Safety/RTC - Patient provided with info on how to contact this television writer and emergency resources including: 's Crisis Line, 911, psychiatry ER at the ID - Follow up in 2-3 weeks via [facility] Medication Reconciliation: Outpatient: Has the patient been taking medications as documented in the EMLR? YES: The patient has been taking medications as documented in the EMLR. Essential Medication List for Review used to complete this medication reconciliation. INCLUDED IN THIS LIST: Alphabetical list of active outpatient prescriptions dispensed from this ID (local) and dispensed from another VA or [...] with a VA or non-VA provider. /mat/ MOISES BARRETT MD ATTENDING PSYCHIATRIST, PSYCHIATRY Signed: 01/28/2025 14:37 MOISES BARRETT [facility]
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
--- NOTE | 2025-02-16 09:16 | A.OFFVIS_ITS ---
Intake Visit Reasons: 6m/US Intake Note: Patient is present for: 6mo follow up Urology Medication: vit-c Blood Thinner:NONE Microstrategy Reports Developer Required: No Accompanied by: Self / Same As Patient Allergies cat dander Allergy (Mild, Verified 02/16/25 09:17) Unknown dog dander Allergy (Mild, Verified 02/16/25 09:17) Unknown Seasonal Allergies Allergy (Mild, Verified 02/16/25 09:17) Unknown No Known Drug Allergies Allergy (Unknown, Verified 02/16/25 09:17) none HPI Comments Details: Erendira is a pleasant female. She is a patient of Dr. Javier. She is seen for the following urologic conditions - nephrolithiasis - recurring UTI No UTI since last visit Discussed ultrasound findings with bilateral small cysts and stone Brother and grandmother have had stones previously Encourage fluid intake Remains on Enbrel for RA Has later [facility] detailing that custodial Embrel use is associated with an immunocompromised state that can result in recurrent UTIs. Urinary Tract Infection:?They present for recurrent UTI's - has had symptoms 5 times early 2015. Embrel since 2004 for RA ?The first infection began years ago.?The frequency of recurrences has been 2016 3 over past 6 months.?Therapy has included symptomatic use of antibiotics ? 2016 suppressive antibiotic regimen - doxy with side effects, macrobid ? - probiotic ? - symptomatic.?Prior cultures have shown 04/07 streptococcus.?Recent labs included a urinalysis, showing significant pyruria and blood. ?Recent testing included Jan 2016 - KUB - possible renal stone ? an ultrasound, Feb 2016 - bilateral 4mm stones, emptying bladder effectively ? , a cystoscopy - cystitis 03/08.?Relevant medical history? diabetes? No ? constipation? No ? incomplete bladder emptying? No ? renal stones? Yes ? genitourinary surgery? No ? association of infections with intercourse? No ? history of vesicoureteral reflux? No ?Self-administered antibiotics 11/06 - Normal cystoscopy. Biopsies taken. Moderate edema. Suppression antibiotics for 3 months..?Therapeutic plan will include see in 6m - imaging for stones.?Risk, benefits and alternatives to therapy were discussed regarding the use and timing of prescribed medications. Pertinent side effects and interactions for medications were highlighted and adherence emphasized. Nephrolithiasis/Urolithiasis:?They are here for further evaluation of nephrolithiasis.?24 Hour urine evaluation 08/09 - Low Urine volume < 2.0 liters, High oxalate > 30mg, Low calcium <200, High Citrate.?Prior imaging includes 04/08 , a renal ultrasound, showing radiodense stone(s), bilaterally 5mm - 10/08 , a renal ultrasound, showing radiodense stone(s) 3mm R, 4mm L - 09/11 renal ultrasound with small stone on left, right renal cyst - 07/15 renal ultrasound multiple bilateral small 3 mm stones - 02/14 renal ultrasound small 2 mm stone ?The stone's maximum size is <5mm.?UA today shows high specific gravity suggestive of relative dehydration.?Current therapeutic plan will be to continue with imaging surveillance, General advice to maintain good fluid intake for urine greater than 1.5 L per day, reduce salt and reduce protein and acid loads was provided [facility] Medical History (Updated 06/30/24 @ 15:55 by BEENA Chow) Blood in stool Hematochezia Pre-op examination Fecal urgency Left ankle pain Closed left ankle fracture Nephrolithiasis Mood disorder Positive QuantiFERON-TB Gold test Urinary frequency Echocardiogram abnormal (~12/2009) GERD without esophagitis Vitamin D deficiency History of kidney stones Ankylosing spondylitis Tachycardia Benign essential hypertension Surgical History (Updated 06/30/24 @ 14:55 by DONTE Valentin) H/O colonoscopy History of augmentation of both breasts History of esophagogastroduodenoscopy (EGD) History of cystoscopy History of arthroscopy of left knee History of section Family History Father Hypercholesteremia Hypertension Mother Hypercholesteremia Hypertension Diabetes Maternal Grandmother History of breast cancer Social History (Reviewed 06/30/24 @ 14:55 by VIRGILIO Valentin Housing: House Are you a primary lawn care worker to a significant other at home: No Do you presently have visiting nurse or other home services: No Alcohol intake: never Patient Tobacco Use Status: Never used Tobacco e-Cigarette/Vaping Use: Never Used Second Hand Smoke Exposure: No service: No Current occupational status: employed 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 Current occupational exposures/hazards: No Cognitive needs: No Hearing needs: No Vision needs: Yes Review of Systems Const Denies chills and Denies fever(s) Card Reports no additional complaints and Denies syncope Resp Denies cough GI Denies abdominal pain and Denies heartburn Reports as per HPI and Denies change in libido Neuro Denies syncope Psych Denies change in libido Endo Denies change in libido Physical Exam Const General: cooperative, healthy appearing, comfortable and no acute distress Orientation/consciousness: patient oriented x3 HEENT Face and sinus: Yes normal facial exam Mouth: moist mucous membranes Neck Neck: Yes normal visual inspection, Yes full ROM and Yes trachea midline Chest Chest palpation & inspection: normal inspection of the chest Resp Effort & Inspection: normal respiratory effort, able to speak in complete sentences and no respiratory distress GI Inspection: Yes normal to inspection Back/Spine/Pelvis Cervical Spine: normal cervical lordosis Thoracic/Lumbar Spine: thoracic and lumbar spine normal to inspection Skin General skin exam: no rashes or lesions noted Neuro General: patient oriented x3, gait normal, tone normal and moves all extremities Extrem General: Yes normal to inspection and Yes capillary refill normal Assessment & Plan Assessment & Plan (1) Nephrolithiasis: Code(s): N20.0 - Calculus of kidney Category: Medical (2) Chronic UTI (urinary tract infection): Code(s): N39.0 - Urinary tract infection, site not specified Category: Medical Plan Twelve month follow-up renal ultrasound Orders: Orders US renal BI 12 Months N20.0 - Calculus of kidney Patient Instructions: This note is constructed using voice recognition software. While every effort has been made to ensure accuracy wire communications engineer errors may have been included. Imaging studies, laboratory and physical exam results were discussed and reviewed in detail. No major barriers to patient understanding were identified. An opportunity to ask questions regarding the treatment plan was provided. All questions were answered. The patient expressed understanding and agreement with the above treatment plan. The patient is aware they should contact our office by phone for worsening of their current condition or the appearance of new urologic symptoms. Compliance is encouraged with any medications and followup testing that is ordered. It is a privilege to participate in the urologic care of your patient. If you have any questions or concerns regarding treatment for the above conditions, or other urologic issues, please do not hesitate to contact me. The office telephone contact is [phone]. Sincerely, Dr Tariq Celis MD, [facility] - Urology Compassionate Specialist Care for the Genitourinary System Coding Level of Care Code Est Pt Level 4 (12453) Diagnoses Nephrolithiasis N20.0 Chronic UTI (urinary tract infection) N39.0
--- OUTSIDE RECORDS SUMMARY | 2025-02-16 09:25 | XMS_ITS | Encounter Summary ---
Author Name [place] Organization [place] Address [address] [place] [address] Care Team Providers Care Plant Operations Worker Name Role Phone TRINH FRANCO Primary Care [...] Patient's Relationship to Policy [employer] ([phone]) PRESCRIPT ION [facility] Jun 07, 2022 GICRXS1 [id number] DAILY PATIENT Selected Encounter This section includes the [...]
--- OUTSIDE RECORDS SUMMARY | 2025-02-16 11:00 | XMS_ITS ---
Author Name [facility] ([place]) Organization [facility] ([place]) Address [address] [place] [address] Care Team Providers Care Supervisor Wet End Name Role Phone TRINH FRANCO Primary Care [...] Patient's Relationship to Policy [employer] ([phone]) PRESCRIPT ION [facility] Jun 07, 2022 [id number] Jelani ALVAREZ PATIENT Selected Encounter This section includes the information on record at [place] for the Encounter. Date/Time Encounter Type Encounter Description Reason Pro vider Source Feb 16, 2025 03:00 PM Outpatient Encounter [facility] Encounter Template Text not used by [place] Plan of Treatment: Future Appointments (+ 6 [...] Appointment Type Appointme nt Facility Name Feb 22, 2025 02:00 [facility] Feb 28, 2025 03:00 PM [facility] Mar 29, 2025 01:00 PM [facility] Apr 21, 2025 03:30 PM AMBULATORY - MEDICINE [facility] Active, Pending, and Scheduled Orders This [...] Date/Time Test Type Test Details Facility Name Jan 04, 2025 10:20 AM Consult Order COMMUNITY CARE-BATTERY CONTAINER TESTER ALUMINUM Cons Production Line [facility] Jan 28, 2025 12:00 AM Laboratory - Chemi stry Order VITAMIN D (25-OH) BLOOD (SST-SERUM) [facility] Jan 28, 2025 12:00 AM Laboratory - Chemi stry Order VITAMIN B12 [facility]LO[facility] ([facility] Jan 28, 2025 12:00 AM Laboratory - Chemi stry Order FOLATE BLOOD (SST-GOLD) [facility] Feb 02, 2025 12:31 PM Consult Order COMMUNITY CARE-GI GENERAL Cons Production Line Welder's Choice [facility] Feb 07, 2025 07:58 AM Consult Order OTOLARYNGO LOGY/ENT ONE Cons Production Line Welder's Choice [facility] Social History: Smoking Status (Most [...] PM VA-TOBACCO NEVER U SED OTHER TYPE [facility] Tobacco Use History This section includes a history of the smoking, or tobacco-related health factors, that were collected on or before the date of the Encounter. The data comes from the [place] facility where the Encounter took place. Date/Time Smoking Status/Tobacco Use Comment Rebecca acbertha May 14, 2024 01:00 PM VA-TOBACCO NEVER U SED OTHER TYPE [facility] Advance Directives: All historical and [...] Encounter. Date/Time Encounter Note(s) Provider Source Feb 03, 2025 08:11 AM MENTAL HEALTH DIAGNOSTIC STUDY NOTE: LOCAL TITLE: MENTAL HEALTH DIAGNOSTIC STUDY STANDARD TITLE: MENTAL HEALTH DIAGNOSTIC STUDY NOTE DATE OF NOTE: FEB 03, 2025@08:11:54 ENTRY DATE: FEB 03, 2025@08:11:54 AUTHOR: ROBERT RODRIGUEZ COSIGNER: URGENCY: STATUS: COMPLETED Assessments were sent to the via text/email. These assessments were completed by JAYLAN ALVAREZ on their own device on 02/03/2025 5:00:50 AM. PATIENT HEALTH QUESTIONNAIRE-9 (PHQ-9) The patient reported symptoms consistent with a major depressive episode. The patient answered the following questions as indicated: Over the last two weeks, how often have you been bothered by any of the following problems: 1. Little interest or pleasure in doing things: Nearly every day 2. Feeling down, depressed or hopeless: Nearly every day 3. Trouble falling or staying asleep or sleeping too much: Nearly every day 4. Feeling tired or having little energy: [...] at home, or get along with others: extremely. PHQ-9 Total Score (past 180 days): 02/03/2025 21 01/28/2025 18 12/31/2024 20 12/10/2024 23 11/26/2024 [...] 5. Feeling restless (hard to sit still): Nearly every day 6. Becoming easily annoyed or irritable: More than half the days 7. Afraid as if something awful might happen: Nearly every day KEYA-7 total score = 20 0-4=minimal symptoms 5-9=mild symptoms 10-14=moderate symptoms 15-21=severe symptoms The patient stated that the anxiety symptoms made it extremely difficult to work, take care of things at home, or get along with others. KEYA-7 Total Score (past 180 days): 02/03/2025 20 01/28/2025 19 /mat/ Robert Rodriguez Psy.D. SEXUAL TRAUMA/WOMEN'S PSYCHOLOGIST Signed: 02/03/2025 13:16 ROBERT RODRIGUEZ CNTRL W[facility]N [facility]
--- OUTSIDE RECORDS SUMMARY | 2025-02-16 11:00 | XMS_ITS | Continuity of Care Document ---
Author Name [facility] Organization [facility] Care Team Providers Care Inspection Supervisor Name Role Phone [facility] Unavailable Unavailable Problems Combined list of problems from Department of Defense and Veterans Affairs facilities. It does not include entries that were removed or entered in error. Problem Status Onset Date Problem Type Date of Resolution Comments Source Allergic Rhinitis ([facility] [id number]) Active Condition [facility] D - Ankylosing spondylitis Active Condition [place] Blood in stool Active Condition [facility] IELD Chronic post-traumatic stress disorder Active Condition [facility] Exposure to potentially hazardous substance Active Condition Sep 02, 2023 Entered By: SHASTA SORIANO Comment: Connect Snomed Code to ICD 10 Code refer to note dated 03/25/23 [facility] - Gastro-Esophageal Reflux Disease ([facility] [id number]) Active Condition [place] History of dysthymia Active Condition [place] History of nephrolithiasis Active Condition [facility] LD HTN - Hypertension ([facility] 73182006) Active Condition [facility] Major depressive disorder Active [facility] [place] [facility] Vitamin D Deficiency ([facility] [id number]) Active Condition [place] Diagnosis: ICD-10-CM F43.12 Post-traumatic stress disorder, chronic Active Diagnosis [facility] [place] [facility] Diagnosis: ICD-10-CM Z00.00 Encntr for general adult medical exam w/o abnormal findings Active Diagnosis [facility] [place] [facility] Diagnosis: ICD-10-CM F33.1 Major depressive disorder, recurrent, moderate Active Diagnosis [facility] [place] [facility] Diagnosis: ICD-10-CM M45.9 Ankylosing spondylitis of unspecified sites in spine Active Diagnosis [facility] [place] [facility] Diagnosis: ICD-10-CM F34.1 Dysthymic disorder Active Diagnosis [facility] Diagnosis: ICD-10-CM N95.8 Other specified menopausal and perimenopausal disorders Active Diagnosis [facility] [place] [facility] Diagnosis: ICD-10-CM J30.9 Allergic rhinitis, unspecified Active Diagnosis [facility] (631GE) Diagnosis: ICD-10-CM M84.472A Pathological fracture, left ankle, init encntr for fracture Active Diagnosis [place] Diagnosis: ICD-10-CM I10 Essential (primary) hypertension Active Diagnosis [facility] WSD[facility]OD[facility]GUEZ [place] [facility] Medications Combined list of outpatient medications from Department of Defense and Veterans Affairs facilities.Medications provided include 1) outpatient medications from the last 15 months, and 2) patient-reported medications. Medication Details Route Status Patient Instructions Prescription Expires Prescription Number Last Dispense Date Ordering Provider Order Date Order Qty Source AMYLASE 120,000UNIT /LIPASE 24,000UNIT/ PROTEASE 76,000UNIT CAP,EC TAKE 2 CAPSULES BY MOUTH TWICE DAILY ORAL ACTIVE 07/01/2025 [id number] HUMBERTO MOSLEY E 2024 200 [place] AMYLASE 120,000UNIT /LIPASE 24,000UNIT/ PROTEASE 76,000UNIT CAP,EC TAKE 2 CAPSULES BY MOUTH TWICE DAILY ORAL DISCONT INUED 02/24/2025 [id number] HUMBERTO MOSLEY E 2023 200 [place] CETIRIZINE HCL 10MG TAB TAKE ONE TABLET BY MOUTH ONCE DAILY FOR ALLERGIE S ORAL SUSPEND ED 09/17/2025 [id number] 5 CHRISTI FRANCOA LEO 2024 90 [facility] [place] [facility] CHOLECALCIF MURTAZA 50MCG (2,000UNIT) TAB TAKE ONE TABLET BY MOUTH ONCE DAILY FOR VITAMIN SUPPLEME NTATION ORAL ACTIVE 02/24/2025 [id number] 5 SALVADOR TRINH LEO 2023 100 [facility] ESCITALOPRA M OXALATE 10MG TAB TAKE ONE AND ONE-HALF TABLETS BY MOUTH EVERY EVENING FOR MOOD/DEP RESSION ORAL DISCONT INUED BY PROVIDE R 07/20/2025 [id number] 5 Cecilio PALUMBO 2024 135 [place] ESCITALOPRA M OXALATE 10MG TAB TAKE ONE AND ONE-HALF TABLETS BY MOUTH EVERY EVENING FOR REPEATED EPISODES OF ANXIETY FOR MOOD/DEP RESSION ORAL DISCONT INUED (EDIT) 06/12/2025 [id number] 5 Cecilio PALUMBO G 2023 45 [facility] IELD ESCITALOPRA M OXALATE 10MG TAB TAKE ONE TABLET BY MOUTH EVERY EVENING FOR MOOD/DEP RESSION ORAL DISCONT INUED (EDIT) 06/13/2024 [id number] 4 Cecilio PALUMBO G 2023 30 [place] ESCITALOPRA M OXALATE 10MG TAB TAKE ONE-HALF TABLET BY MOUTH EVERY EVENING FOR MOOD/DEP RESSION ORAL DISCONT INUED (EDIT) 05/31/2024 [id number] 4 Cecilio PALUMBO G 2023 23 [facility] IELD ESCITALOPRA M OXALATE 10MG TAB TAKE ONE-HALF TABLET BY MOUTH EVERY EVENING FOR MOOD/DEP RESSION ORAL DISCONT INUED 04/12/2024 [id number] 4 Cecilio PALUMBO G 2023 23 [facility] IELD ETANERCEPT 50MG/ML INJ SURECLICK INJECT 50MG SUBCUTAN EOUSLY EVERY FRINES Y SUBCUT ANEOUS SUSPEND ED 10/28/2025 [id number] 5 LEANDRA BAEZ V 2024 12 [facility] [place] ETANERCEPT 50MG/ML INJ SURECLICK INJECT 50MG SUBCUTAN EOUSLY Q Y SUBCUT ANEOUS DISCONT INUED (EDIT) 08/20/2025 [id number] 5 LEANDRA BAEZ V 2024 12 [facility] [place] [facility] FEXOFENADIN E HCL 180MG TAB TAKE ONE TABLET BY MOUTH ONCE DAILY FOR ALLERGIE S ORAL SUSPEND ED 01/05/2026 [id number] 5 SALVADOR, TRINH LEO 2024 90 [facility] [place] [facility] FEXOFENADIN E HCL 180MG TAB TAKE ONE TABLET BY MOUTH ONCE DAILY FOR ALLERGIE S ORAL DISCONT INUED 02/24/2025 [id number] 5 TRINH FRANCO 2023 90 [facility] [place] [facility] FLUOXETINE HCL 20MG CAP TAKE THREE CAPSULES BY MOUTH EVERY MORNING FOR DEPRESSI ON AND ANXIETY ORAL SUSPEND ED 01/29/2026 [id number] 5 ADAM MCCLURE AM 2024 270 [facility] [place] [facility] PANTOPRAZOL E NA 20MG TAB,EC TAKE ONE TABLET BY MOUTH EVERY MORNING 30 MINUTES BEFORE BREAKFAS T FOR EXCESSIV E PRODUCTI ON OF STOMACH ACID ORAL SUSPEND ED 01/05/2026 [id number] 5 CHRISTI FRANCOA LEO 2024 90 [facility] [place] [facility] [facility] VIENVA TAB,28 TAKE 1 TABLET BY MOUTH ONCE DAILY FOR REYNA MENOPAUS E HORMONE TREATMEN T ORAL SUSPEND ED 12/08/2025 [id number] 5 CHRISTI FRANCOA LEO 2024 3 [facility] [place] [facility] [facility] VIENVA TAB,28 TAKE 1 TABLET BY MOUTH ONCE DAILY FOR REYNA MENOPAUS E HORMONE TREATMEN T ORAL DISCONT INUED 12/09/2024 [id number] 5 TRINH FRANCO 2024 3 [facility] [place] [facility] Results Combined list of recent chemistry, hematology and other laboratory results from Department of Defense and Veterans Affairs, ranging from 15 months to all on record, depending upon the facility. Order Name Results Value Reference Range Date Interpretation Specimen Comments Source LIVER FUNCTION PROTEIN [MASS/VOLU ME] IN SERUM OR PLASMA 6.9 g/dL 6.4 - 8.3 12/23 Specimen Type: SERUM No comment entered. Ordering Provider: MESSI BAEZ V Report Released Date/Time: Dec 23, 2024 01:51 PM Reporting Lab: [facility] [place] [facility] [address] [facility] [address] Performing Lab: [facility] [address] [address] [facility] [facility] LIVER FUNCTION ALBUMIN [MASS/VOLU ME] IN SERUM OR PLASMA BY BROMOCRESO L PURPLE (BCP) DYE BINDING METHOD 3.8 g/dL 3.5 - 5.2 12/23 Specimen Type: SERUM No comment entered. Ordering Provider: MESSI BAEZ V Report Released Date/Time: Dec 23, 2024 01:51 PM Reporting Lab: [facility] [address] Performing Lab: [facility] [address] [facility] LIVER FUNCTION ALKALINE PHOSPHATAS E [ENZYMATIC ACTIVITY/V OLUME] IN SERUM OR PLASMA 51 U/L 40 - 150 12/23 Specimen Type: SERUM No comment entered. Ordering Provider: MESSI BAEZ V Report Released Date/Time: Dec 23, 2024 01:51 PM Reporting Lab: [facility] [address] Performing Lab: [facility] [address] [facility] LIVER FUNCTION ASPARTATE AMINOTRANS FERASE [ENZYMATIC ACTIVITY/V OLUME] IN SERUM OR PLASMA BY WITH P-5'-P 20 U/L 5 - 34 12/23 Specimen Type: SERUM No comment entered. Ordering Provider: MESSI BAEZ V Report Released Date/Time: Dec 23, 2024 01:51 PM Reporting Lab: [facility] [address] Performing Lab: [facility] [address] [address] [facility] LIVER FUNCTION ALANINE AMINOTRANS FERASE [ENZYMATIC ACTIVITY/V OLUME] IN SERUM OR PLASMA BY WITH P-5'-P 12 U/L 0 - 55 12/23 Specimen Type: SERUM No comment entered. Ordering Provider: MESSI BAEZ V Report Released Date/Time: Dec 23, 2024 01:51 PM Reporting Lab: [facility] [address] Performing Lab: [facility] [place] [facility] [address] [facility] [address] [facility] LIVER FUNCTION BILIRUBIN. TOTAL [MASS/VOLU ME] IN SERUM OR PLASMA 0.5 mg/dL 0.2 - 1.2 12/23 Specimen Type: SERUM No comment entered. Ordering Provider: MESSI BAEZ V Report Released Date/Time: Dec 23, 2024 01:51 PM Reporting Lab: [facility] [address] [facility] [address] Performing Lab: [facility] [address] [facility] [address] [facility] BASIC METABOLI C PANEL (fasting ) UREA NITROGEN [MASS/VOLU ME] IN SERUM OR PLASMA 19 mg/dL 7 - 19 12/23 Specimen Type: SERUM No comment entered. Ordering Provider: MESSI BAEZ V Report Released Date/Time: Dec 23, 2024 01:51 PM Reporting Lab: [facility] [address] [facility] [address] Performing Lab: [facility] [address] [facility] BASIC METABOLI C PANEL (fasting ) GLUCOSE [MASS/VOLU ME] IN SERUM OR PLASMA 62 mg/dL 65 - 100 12/23 L Specimen Type: SERUM No comment entered. Ordering Provider: MESSI BAEZ V Report Released Date/Time: Dec 23, 2024 01:51 PM Reporting Lab: [facility] [address] [facility] [address] Performing Lab: [facility] [address] [address] [facility] BASIC METABOLI C PANEL (fasting ) SODIUM [MOLES/VOL UME] IN SERUM OR PLASMA 138 mmol/L 136 - 145 12/23 Specimen Type: SERUM No comment entered. Ordering Provider: MESSI BAEZ V Report Released Date/Time: Dec 23, 2024 01:51 PM Reporting Lab: [facility] [place] [facility] [address] [facility] [address] Performing Lab: [facility] [place] [facility] [address] [facility] [address] [facility] [place] [facility] BASIC METABOLI C PANEL (fasting ) POTASSIUM [MOLES/VOL UME] IN SERUM OR PLASMA 4.2 mmol/L 3.5 - 5.1 12/23 Specimen Type: SERUM No comment entered. Ordering Provider: MESSI BAEZ V Report Released Date/Time: Dec 23, 2024 01:51 PM Reporting Lab: [facility] [place] [facility] [address] [facility] [address] Performing Lab: [facility] [place] [facility] [address] [facility] [address] [facility] [place] [facility] BASIC METABOLI C PANEL (fasting ) CHLORIDE [MOLES/VOL UME] IN SERUM OR PLASMA 106 mmol/L 98 - 107 12/23 Specimen Type: SERUM No comment entered. Ordering Provider: MESSI BAEZ V Report Released Date/Time: Dec 23, 2024 01:51 PM Reporting Lab: [facility] [place] [facility] [address] [facility] [address] Performing Lab: [facility] [place] [facility] [address] [facility] [address] [facility] [place] [facility] BASIC METABOLI C PANEL (fasting ) CARBON DIOXIDE, TOTAL [MOLES/VOL UME] IN SERUM OR PLASMA 25 meq/L 22 - 29 12/23 Specimen Type: SERUM No comment entered. Ordering Provider: MESSI BAEZ V Report Released Date/Time: Dec 23, 2024 01:51 PM Reporting Lab: [facility] [place] [facility] [address] [facility] [address] Performing Lab: [facility] [place] [facility] [address] [facility] [address] [facility] [place] [facility] BASIC METABOLI C PANEL (fasting ) CALCIUM [MASS/VOLU ME] IN SERUM OR PLASMA 8.3 mg/dL 8.4 - 10.2 12/23 L Specimen Type: SERUM No comment entered. Ordering Provider: MESSI BAEZ V Report Released Date/Time: Dec 23, 2024 01:51 PM Reporting Lab: [facility] [address] [facility] [address] Performing Lab: [facility] [address] [address] [facility]ENTERUSE [facility] BASIC METABOLI C PANEL (fasting ) CREATININE [MASS/VOLU ME] IN SERUM OR PLASMA 0.90 mg/dL .57 - 1.11 12/23 Specimen Type: SERUM No comment entered. Ordering Provider: MESSI BAEZ V Report Released Date/Time: Dec 23, 2024 01:51 PM Reporting Lab: [facility] [address] [address] Performing Lab: [facility] [address] [address] [facility] BASIC METABOLI C PANEL (fasting ) GLOMERULAR FILTRATION RATE/1.73 SQ M.PREDICTE D [VOLUME RATE/AREA] IN SERUM, PLASMA OR BLOOD BY CREATININE -BASED FORMULA (CKD-EPI 2020) 81 mL/min 60 12/23 Specimen Type: SERUM No comment entered. Ordering Provider: MESSI BAEZ V Report Released Date/Time: Dec 23, 2024 01:51 PM Reporting Lab: [facility] [address] Performing Lab: [facility] [address] [facility] CBC AND DIFF (AUTO) LEUKOCYTES [#/VOLUME] IN BLOOD BY AUTOMATED COUNT 6.64 10*3/uL 4.50 - 11.00 12/23 Specimen Type: BLOOD No comment entered. Ordering Provider: MESSI BAEZ V Report Released Date/Time: Dec 23, 2024 01:51 PM Reporting Lab: [facility] [address] [address] Performing Lab: [facility] [place] [facility] [address] [facility] [address] [facility] [place] [facility] CBC AND DIFF (AUTO) ERYTHROCYT ES [#/VOLUME] IN BLOOD BY AUTOMATED COUNT 4.12 10*6/uL 3.93 - 5.16 12/23 Specimen Type: BLOOD No comment entered. Ordering Provider: MESSI BAEZ V Report Released Date/Time: Dec 23, 2024 01:51 PM Reporting Lab: [facility] [place] [facility] [address] [facility] [address] Performing Lab: [facility] [place] [facility] [address] [facility] [address] [facility] [place] [facility] CBC AND DIFF (AUTO) HEMOGLOBIN [MASS/VOLU ME] IN BLOOD 13.5 g/dL 12 - 15.2 12/23 Specimen Type: BLOOD No comment entered. Ordering Provider: MESSI BAEZ V Report Released Date/Time: Dec 23, 2024 01:51 PM Reporting Lab: [facility] [place] [facility] [address] [facility] [address] Performing Lab: [facility] [place] [facility] [address] [facility] [address] [facility] [place] [facility] CBC AND DIFF (AUTO) HEMATOCRIT [VOLUME FRACTION] OF BLOOD BY AUTOMATED COUNT 38.8 36.6 - 45.6 12/23 Specimen Type: BLOOD No comment entered. Ordering Provider: MESSI BAEZ V Report Released Date/Time: Dec 23, 2024 01:51 PM Reporting Lab: [facility] [place] [facility] [address] [facility] [address] Performing Lab: [facility] [place] [facility] [address] [facility] [address] [facility] [place] [facility] CBC AND DIFF (AUTO) MCV [ENTITIC VOLUME] BY AUTOMATED COUNT 94.2 fL 82 - 99 12/23 Specimen Type: BLOOD No comment entered. Ordering Provider: MESSI BAEZ V Report Released Date/Time: Dec 23, 2024 01:51 PM Reporting Lab: [facility] [place] [facility] [address] [facility] [address] Performing Lab: [facility] [place] [facility] [address] [facility] [address] [facility] [place] [facility] CBC AND DIFF (AUTO) MCHC [MASS/VOLU ME] BY AUTOMATED COUNT 34.8 g/dL 30.8 - 35.1 12/23 Specimen Type: BLOOD No comment entered. Ordering Provider: MESSI BAEZ V Report Released Date/Time: Dec 23, 2024 01:51 PM Reporting Lab: [facility] [place] [facility] [address] [facility] [address] Performing Lab: [facility] [place] [facility] [address] [facility] [address] [facility] [place] [facility] CBC AND DIFF (AUTO) PLATELETS [#/VOLUME] IN BLOOD BY AUTOMATED COUNT 314 10*3/uL 140 - 360 12/23 Specimen Type: BLOOD No comment entered. Ordering Provider: MESSI BAEZ V Report Released Date/Time: Dec 23, 2024 01:51 PM Reporting Lab: [facility] [place] [facility] [address] [facility] [address] Performing Lab: [facility] [place] [facility] [address] [facility] [address] [facility] [place] [facility] CBC AND DIFF (AUTO) PLATELET MEAN VOLUME [ENTITIC VOLUME] IN BLOOD BY AUTOMATED COUNT 9.8 fL 9.2 - 12.4 12/23 Specimen Type: BLOOD No comment entered. Ordering Provider: MESSI BAEZ V Report Released Date/Time: Dec 23, 2024 01:51 PM Reporting Lab: [facility] [place] [facility] [address] [facility] [address] Performing Lab: [facility] [place] [facility] [address] [facility] [address] [facility] [place] [facility] CBC AND DIFF (AUTO) ERYTHROCYT E DISTRIBUTI ON WIDTH [RATIO] BY AUTOMATED COUNT 12.1 12.0 - 16.0 07/03 /2025 Specimen Type: BLOOD No comment entered. Ordering Provider: MESSI BAEZ V Report Released Date/Time: Dec 23, 2024 01:51 PM Reporting Lab: [facility] [place] [facility] [address] [facility] [address] Performing Lab: [facility] [place] [facility] [address] [facility] [address] [facility] [place] [facility] CBC AND DIFF (AUTO) MONOCYTES [#/VOLUME] IN BLOOD BY AUTOMATED COUNT 0.47 10*3/uL 0.30 - 1.10 12/23 Specimen Type: BLOOD No comment entered. Ordering Provider: MESSI BAEZ V Report Released Date/Time: Dec 23, 2024 01:51 PM Reporting Lab: [facility] [place] [facility] [address] [facility] [address] Performing Lab: [facility] [place] [facility] [address] [facility] [address] [facility] [place] [facility] CBC AND DIFF (AUTO) MCH [ENTITIC MASS] BY AUTOMATED COUNT 32.8 pg 26.2 - 32.6 12/23 H Specimen Type: BLOOD No comment entered. Ordering Provider: MESSI BAEZ V Report Released Date/Time: Dec 23, 2024 01:51 PM Reporting Lab: [facility] [place] [address] [address] Performing Lab: [facility] [place] [facility] [address] [facility] [address] [facility] [place] [facility] CBC AND DIFF (AUTO) NEUTROPHIL S/100 LEUKOCYTES IN BLOOD BY AUTOMATED COUNT 66.4 43.7 - 75.8 12/23 Specimen Type: BLOOD No comment entered. Ordering Provider: MESSI BAEZ V Report Released Date/Time: Dec 23, 2024 01:51 PM Reporting Lab: [facility] [place] [facility] [address] [facility] [address] Performing Lab: [facility] [place] [address] [address] [facility] [place] CBC AND DIFF (AUTO) LYMPHOCYTE S/100 LEUKOCYTES IN BLOOD BY AUTOMATED COUNT 24.2 14.0 - 42.3 12/23 Specimen Type: BLOOD No comment entered. Ordering Provider: MESSI BAEZ V Report Released Date/Time: Dec 23, 2024 01:51 PM Reporting Lab: [facility] [place] [facility] [address] [facility] [address] Performing Lab: [facility] [place] [facility] [address] [facility] [address] [facility] [place] [facility] CBC AND DIFF (AUTO) MONOCYTES/ 100 LEUKOCYTES IN BLOOD BY AUTOMATED COUNT 7.1 5.1 - 13.7 12/23 Specimen Type: BLOOD No comment entered. Ordering Provider: MESSI BAEZ V Report Released Date/Time: Dec 23, 2024 01:51 PM Reporting Lab: [facility] [place] [address] [address] Performing Lab: [facility] [place] [facility] [address] [place] [address] [facility] [place] [facility] CBC AND DIFF (AUTO) EOSINOPHIL S/100 LEUKOCYTES IN BLOOD BY AUTOMATED COUNT 1.5 0.4 - 6.8 12/23 Specimen Type: BLOOD No comment entered. Ordering Provider: MESSI BAEZ V Report Released Date/Time: Dec 23, 2024 01:51 PM Reporting Lab: [facility] [place] [address] [address] Performing Lab: [facility] [place] [facility] [address] [facility] [address] [facility] [place] CBC AND DIFF (AUTO) BASOPHILS/ 100 LEUKOCYTES IN BLOOD BY AUTOMATED COUNT 0.5 0.1 - 2.0 12/23 Specimen Type: BLOOD No comment entered. Ordering Provider: MESSI BAEZ V Report Released Date/Time: Dec 23, 2024 01:51 PM Reporting Lab: [facility] [place] [address] [address] Performing Lab: [facility] [place] [facility] [address] [facility] [address] [facility] CBC AND DIFF (AUTO) NEUTROPHIL S [#/VOLUME] IN BLOOD BY AUTOMATED COUNT 4.41 10*3/uL 2.20 - 7.60 12/23 Specimen Type: BLOOD No comment entered. Ordering Provider: MESSI BAEZ V Report Released Date/Time: Dec 23, 2024 01:51 PM Reporting Lab: [facility] [address] [facility] [address] Performing Lab: [facility] [address] [facility] [address] [facility] CBC AND DIFF (AUTO) LYMPHOCYTE S [#/VOLUME] IN BLOOD BY AUTOMATED COUNT 1.61 10*3/uL 1.00 - 3.20 12/23 Specimen Type: BLOOD No comment entered. Ordering Provider: MESSI BAEZ V Report Released Date/Time: Dec 23, 2024 01:51 PM Reporting Lab: [facility] [address] [address] Performing Lab: [facility] [place] [address] [address] [facility] CBC AND DIFF (AUTO) EOSINOPHIL S [#/VOLUME] IN BLOOD BY AUTOMATED COUNT 0.10 10*3/uL 0.03 - 0.44 12/23 Specimen Type: BLOOD No comment entered. Ordering Provider: MESSI BAEZ V Report Released Date/Time: Dec 23, 2024 01:51 PM Reporting Lab: [facility] [address] [address] Performing Lab: [facility] [address] [address] [facility] CBC AND DIFF (AUTO) BASOPHILS [#/VOLUME] IN BLOOD BY AUTOMATED COUNT 0.03 10*3/uL 0.01 - 0.13 12/23 Specimen Type: BLOOD No comment entered. Ordering Provider: MESSI BAEZ V Report Released Date/Time: Dec 23, 2024 01:51 PM Reporting Lab: [facility] [address] [facility] [address] Performing Lab: [facility] [address] [facility] [address] [facility] CBC AND DIFF (AUTO) IMMATURE GRANULOCYT ES/100 LEUKOCYTES IN BLOOD BY AUTOMATED COUNT 0.3 0.0 - 0.7 12/23 Specimen Type: BLOOD No comment entered. Ordering Provider: MESSI BAEZ V Report Released Date/Time: Dec 23, 2024 01:51 PM Reporting Lab: [facility] [address] [facility] [address] Performing Lab: [facility] [address] [facility] [address] [facility] CBC AND DIFF (AUTO) IMMATURE GRANULOCYT ES [#/VOLUME] IN BLOOD BY AUTOMATED COUNT 0.02 10*3/uL 0.00 - 0.06 12/23 Specimen Type: BLOOD No comment entered. Ordering Provider: MESSI BAEZ V Report Released Date/Time: Dec 23, 2024 01:51 PM Reporting Lab: [facility] [address] [facility] [address] Performing Lab: [facility] [facility] [address] [facility] [address] [facility] CBC AND DIFF (AUTO) NUCLEATED ERYTHROCYT ES/100 LEUKOCYTES [RATIO] IN BLOOD BY AUTOMATED COUNT 0.0 0.0 - 0.0 12/23 Specimen Type: BLOOD No comment entered. Ordering Provider: MESSI BAEZ V Report Released Date/Time: Dec 23, 2024 01:51 PM Reporting Lab: [facility] [address] [facility] [address] Performing Lab: [facility] [address] [place] [address] [facility] CBC AND DIFF (AUTO) NUCLEATED ERYTHROCYT ES [#/VOLUME] IN BLOOD BY AUTOMATED COUNT 0.00 10*3/uL 0.00 - 0.00 12/23 Specimen Type: BLOOD No comment entered. Ordering Provider: MESSI BAEZ V Report Released Date/Time: Dec 23, 2024 01:51 PM Reporting Lab: [facility] [facility] [address] [facility] [address] Performing Lab: [facility] [facility] [address] [facility] [address] [facility] TSH THYROTROPI N [UNITS/VOL UME] IN SERUM OR PLASMA BY DETECTION LIMIT <= 0.005 MIU/L 1.66 u[IU]/mL 0.35 - 4.94 12/23 Specimen Type: SERUM No comment entered. Ordering Provider: MESSI BAEZ V Report Released Date/Time: Dec 23, 2024 01:51 PM Reporting Lab: [facility] [place] [facility] [address] [facility] [address] Performing Lab: [facility] [place] [facility] [address] [facility] [address] [facility] LIVER FUNCTION PROTEIN [MASS/VOLU ME] IN SERUM OR PLASMA 7.0 g/dL 6.0 - 8.3 08/19 Specimen Type: SERUM No comment entered. Ordering Provider: MESSI BAEZ V Report Released Date/Time: Aug 19, 2024 02:18 PM Reporting Lab: [facility] [facility] [address] [facility] [address] Performing Lab: [facility] [place] [facility] [address] [facility] [address] [facility] LIVER FUNCTION ALBUMIN [MASS/VOLU ME] IN SERUM OR PLASMA 3.7 g/dL 3.5 - 5.0 08/19 Specimen Type: SERUM No comment entered. Ordering Provider: MESSI BAEZ V Report Released Date/Time: Aug 19, 2024 02:18 PM Reporting Lab: [facility] [place] [facility] [address] [facility] [address] Performing Lab: [facility] [address] [facility] [address] [facility] LIVER FUNCTION ALKALINE PHOSPHATAS E [ENZYMATIC ACTIVITY/V OLUME] IN SERUM OR PLASMA 49 U/L 40 - 150 08/19 Specimen Type: SERUM No comment entered. Ordering Provider: MESSI BAEZ V Report Released Date/Time: Aug 19, 2024 02:18 PM Reporting Lab: [facility] [address] [facility] [address] Performing Lab: [facility] [place] [facility] [address] [facility] [address] [facility] LIVER FUNCTION ASPARTATE AMINOTRANS FERASE [ENZYMATIC ACTIVITY/V OLUME] IN SERUM OR PLASMA 15 U/L 5 - 34 08/19 Specimen Type: SERUM No comment entered. Ordering Provider: MESSI BAEZ V Report Released Date/Time: Aug 19, 2024 02:18 PM Reporting Lab: [facility] [facility] [address] [facility] [address] Performing Lab: [facility] [facility] [address] [facility] [address] [facility] LIVER FUNCTION ALANINE AMINOTRANS FERASE [ENZYMATIC ACTIVITY/V OLUME] IN SERUM OR PLASMA 14 U/L 08/19 Specimen Type: SERUM No comment entered. Ordering Provider: MESSI BAEZ V Report Released Date/Time: Aug 19, 2024 02:18 PM Reporting Lab: [facility] [place] [facility] [address] [facility] [address] Performing Lab: [facility] [address] [facility] [address] [facility] LIVER FUNCTION BILIRUBIN. TOTAL [MASS/VOLU ME] IN SERUM OR PLASMA 0.4 mg/dL 0.2 - 1.2 08/19 Specimen Type: SERUM No comment entered. Ordering Provider: MESSI BAEZ V Report Released Date/Time: Aug 19, 2024 02:18 PM Reporting Lab: [facility] [address] [facility] [address] Performing Lab: [facility] [address] [facility] [address] [facility] VITAMIN D (25-OH) 25-HYDROXY VITAMIN D3 [MASS/VOLU ME] IN SERUM OR PLASMA 18 ng/mL 20 - 50 08/19 L Specimen Type: SERUM No comment entered. Ordering Provider: MESSI BAEZ V Report Released Date/Time: Aug 19, 2024 02:18 PM Reporting Lab: [facility] [address] [facility] [address] Performing Lab: [facility] [address] [facility] [address] [facility] CBC LEUKOCYTES [#/VOLUME] IN BLOOD BY AUTOMATED COUNT 6.15 10*3/uL 4.50 - 11.00 08/19 Specimen Type: BLOOD No comment entered. Ordering Provider: MESSI BAEZ V Report Released Date/Time: Aug 19, 2024 02:18 PM Reporting Lab: [facility] [address] [facility] [address] Performing Lab: [facility] [address] [facility] [address] [facility] CBC ERYTHROCYT ES [#/VOLUME] IN BLOOD BY AUTOMATED COUNT 3.96 10*6/uL 3.93 - 5.16 08/19 Specimen Type: BLOOD No comment entered. Ordering Provider: MESSI BAEZ V Report Released Date/Time: Aug 19, 2024 02:18 PM Reporting Lab: [facility] [address] [facility] [address] Performing Lab: [facility] [address] [facility] [address] [facility] CBC HEMOGLOBIN [MASS/VOLU ME] IN BLOOD 13.2 g/dL 12 - 15.2 08/19 Specimen Type: BLOOD No comment entered. Ordering Provider: MESSI BAEZ V Report Released Date/Time: Aug 19, 2024 02:18 PM Reporting Lab: [facility] [address] [facility] [address] Performing Lab: [facility] [address] [facility] [address] [facility] CBC HEMATOCRIT [VOLUME FRACTION] OF BLOOD BY AUTOMATED COUNT 38.1 36.6 - 45.6 08/19 Specimen Type: BLOOD No comment entered. Ordering Provider: MESSI BAEZ V Report Released Date/Time: Aug 19, 2024 02:18 PM Reporting Lab: [facility] [address] [facility] [address] Performing Lab: [facility] [place] [facility] [address] [facility] [address] [facility] CBC MCV [ENTITIC VOLUME] BY AUTOMATED COUNT 96.2 fL 82 - 99 08/19 Specimen Type: BLOOD No comment entered. Ordering Provider: MESSI BAEZ V Report Released Date/Time: Aug 19, 2024 02:18 PM Reporting Lab: [facility] [address] [facility] [address] Performing Lab: [facility] [place] [facility] [address] [facility] [address] [facility] CBC MCHC [MASS/VOLU ME] BY AUTOMATED COUNT 34.6 g/dL 30.8 - 35.1 08/19 Specimen Type: BLOOD No comment entered. Ordering Provider: MESSI BAEZ V Report Released Date/Time: Aug 19, 2024 02:18 PM Reporting Lab: [facility] [address] [facility] [address] Performing Lab: [facility] [address] [facility] [address] [facility] CBC PLATELETS [#/VOLUME] IN BLOOD BY AUTOMATED COUNT 295 10*3/uL 140 - 360 08/19 Specimen Type: BLOOD No comment entered. Ordering Provider: MESSI BAEZ V Report Released Date/Time: Aug 19, 2024 02:18 PM Reporting Lab: [facility] [place] [facility] [address] [facility] [address] Performing Lab: [facility] [place] [facility] [address] [facility] [address] [facility] CBC ERYTHROCYT E DISTRIBUTI ON WIDTH [RATIO] BY AUTOMATED COUNT 11.6 12.0 - 16.0 08/19 L Specimen Type: BLOOD No comment entered. Ordering Provider: MESSI BAEZ V Report Released Date/Time: Aug 19, 2024 02:18 PM Reporting Lab: [facility] [place] [facility] [address] [facility] [address] Performing Lab: [facility] [place] [facility] [address] [facility] [address] [facility] CBC MCH [ENTITIC MASS] BY AUTOMATED COUNT 33.3 pg 26.2 - 32.6 08/19 H Specimen Type: BLOOD No comment entered. Ordering Provider: MESSI BAEZ V Report Released Date/Time: Aug 19, 2024 02:18 PM Reporting Lab: [facility] [place] [facility] [address] [facility] [address] Performing Lab: [facility] [place] [facility] [address] [facility] [address] [facility] BASIC METABOLI C PANEL (non-fas ting) UREA NITROGEN [MASS/VOLU ME] IN SERUM OR PLASMA 15 mg/dL 7 - 25 08/19 Specimen Type: SERUM No comment entered. Ordering Provider: MESSI BAEZ V Report Released Date/Time: Aug 19, 2024 02:18 PM Reporting Lab: [facility] [place] [facility] [address] [facility] [address] Performing Lab: [facility] [place] [address] [address] [facility] BASIC METABOLI C PANEL (non-fas ting) GLUCOSE [MASS/VOLU ME] IN SERUM OR PLASMA 84 mg/dL 65 - 100 08/19 Specimen Type: SERUM No comment entered. Ordering Provider: MESSI BAEZ V Report Released Date/Time: Aug 19, 2024 02:18 PM Reporting Lab: [facility] [address] Performing Lab: [facility] [address] [address] [facility] BASIC METABOLI C PANEL (non-fas ting) SODIUM [MOLES/VOL UME] IN SERUM OR PLASMA 136 mmol/L 135 - 145 08/19 Specimen Type: SERUM No comment entered. Ordering Provider: MESSI BAEZ V Report Released Date/Time: Aug 19, 2024 02:18 PM Reporting Lab: [facility] [address] [address] Performing Lab: [facility] [address] [facility] BASIC METABOLI C PANEL (non-fas ting) POTASSIUM [MOLES/VOL UME] IN SERUM OR PLASMA 4.4 mmol/L 3.5 - 5.0 08/19 Specimen Type: SERUM No comment entered. Ordering Provider: MESSI BAEZ V Report Released Date/Time: Aug 19, 2024 02:18 PM Reporting Lab: [place] [facility] [place] [address] [address] Performing Lab: [facility] [address] [address] [facility] BASIC METABOLI C PANEL (non-fas ting) CHLORIDE [MOLES/VOL UME] IN SERUM OR PLASMA 104 mmol/L 100 - 110 08/19 Specimen Type: SERUM No comment entered. Ordering Provider: MESSI BAEZ V Report Released Date/Time: Aug 19, 2024 02:18 PM Reporting Lab: [facility] [place] [facility] [address] [facility] [address] Performing Lab: [facility] [place] [facility] [address] [facility] [address] [facility] BASIC METABOLI C PANEL (non-fas ting) CARBON DIOXIDE, TOTAL [MOLES/VOL UME] IN SERUM OR PLASMA 24 meq/L 20 - 30 08/19 Specimen Type: SERUM No comment entered. Ordering Provider: MESSI BAEZ V Report Released Date/Time: Aug 19, 2024 02:18 PM Reporting Lab: [place] [facility] [address] [address] Performing Lab: [place] [facility] [address] [address] [facility] BASIC METABOLI C PANEL (non-fas ting) CALCIUM [MASS/VOLU ME] IN SERUM OR PLASMA 9.1 mg/dL 8.5 - 10.2 08/19 Specimen Type: SERUM No comment entered. Ordering Provider: MESSI BAEZ V Report Released Date/Time: Aug 19, 2024 02:18 PM Reporting Lab: [facility] [place] [facility] [address] [facility] [address] Performing Lab: [facility] [address] [address] [facility] BASIC METABOLI C PANEL (non-fas ting) CREATININE [MASS/VOLU ME] IN SERUM OR PLASMA 0.80 mg/dL 0.50 - 1.40 08/19 Specimen Type: SERUM No comment entered. Ordering Provider: MESSI BAEZ V Report Released Date/Time: Aug 19, 2024 02:18 PM Reporting Lab: [facility] [place] [address] [address] Performing Lab: [facility] [address] [address] [facility] BASIC METABOLI C PANEL (non-fas ting) GLOMERULAR FILTRATION RATE/1.73 SQ M.PREDICTE D [VOLUME RATE/AREA] IN SERUM, PLASMA OR BLOOD BY CREATININE -BASED FORMULA (CKD-EPI 2020) >90mL/mi n 60 08/19 Specimen Type: SERUM No comment entered. Ordering Provider: MESSI BAEZ V Report Released Date/Time: Aug 19, 2024 02:18 PM Reporting Lab: [address] [address] Performing Lab: [address] [address] [facility] HLA-B27 (QU) HLA-B27 [PRESENCE] Positive 05/10 Specimen Type: BLOOD Comment: normalcy status - Abnormal Test Performed by [facility], [facility], [address] [place] [address] Rodger Bender M.D., Ph.D., Director of Laboratorie s , CLIA [id number] TEST PERFORMED AT: , Ordering Provider: MESSI BAEZ V Report Released Date/Time: May 06, 2024 01:47 PM Reporting Lab: [address] [address] Performing Lab: [facility] [address] [address] [facility] T-SPOT TB PANEL MYCOBACTER IUM TUBERCULOS IS STIMULATED GAMMA INTERFERON [INTERPRET ATION] IN BLOOD QUALITATIV E Negative 05/10 Specimen Type: BLOOD Comment: A negative test result does not exclude the possibility of exposure to or infection with Mycobacteri um tuberculosi s (M. tuberculosi s). Patients with recent exposure to TB infected individuals exhibiting a negative T-SPOT.TB result should be considered for retesting within 6 weeks or if other relevant clinical symptoms indicate. Results from T-SPOT.TB testing must be used in conjunction with each individual' s epidemiolog ical history, current medical status, and results of other diagnostic evaluations . The T-SPOT.TB test is qualitative and results are reported as positive, borderline, or negative, given that the test controls perform as expected. In line with the Centers for Disease Control and Prevention' s 2010 recommendat ion to report quantitativ e measurement s alongside the qualitative result, the laboratory provides spot counts for information al purposes only. The T-SPOT.TB test should not be interpreted as a quantitativ e test. For additional information , please refer to http://educ atOCP Collective.City[employer] Media/faq/FA Q215 (This link is being provided for information al/ educational purposes only.) Test Performed by [employer], [facility], [address] [place] [address] Rodger Bender M.D., Ph.D., Director of Laboratorie s , AMALIAIA [id number] TEST PERFORMED AT: , Ordering Provider: MESSI BAEZ V Report Released Date/Time: May 06, 2024 01:47 PM Reporting Lab: [facility] [address] [facility] [address] Performing Lab: [facility] [address] [address] [facility] T-SPOT TB PANEL MYCOBACTER IUM TUBERCULOS IS STIMULATED GAMMA INTERFERON ESAT-6 AG SPOT COUNT [#] IN BLOOD 0 05/10 Specimen Type: BLOOD Comment: A negative test result does not exclude the possibility of exposure to or infection with Mycobacteri um tuberculosi s (M. tuberculosi s). Patients with recent exposure to TB infected individuals exhibiting a negative T-SPOT.TB result should be considered for retesting within 6 weeks or if other relevant clinical symptoms indicate. Results from T-SPOT.TB testing must be used in conjunction with each individual' s epidemiolog ical history, current medical status, and results of other diagnostic evaluations . The T-SPOT.TB test is qualitative and results are reported as positive, borderline, or negative, given that the test controls perform as expected. In line with the Centers for Disease Control and Prevention' s 2010 recommendat ion to report quantitativ e measurement s alongside the qualitative result, the laboratory provides spot counts for information al purposes only. The T-SPOT.TB test should not be interpreted as a quantitativ e test. For additional information , please refer to http://Sunrun/faq/FA Q215 (This link is being provided for information al/ educational purposes only.) Test Performed by [employer], [facility], [address] [place] [address] Rodger Bender M.D., Ph.D., Director of Laboratorie s , [place] [id number] TEST PERFORMED AT: , Ordering Provider: MESSI BAEZ V Report Released Date/Time: May 06, 2024 01:47 PM Reporting Lab: [facility] [address] [facility] [address] Performing Lab: [facility] [address] [address] [facility] T-SPOT TB PANEL MYCOBACTER IUM TUBERCULOS IS STIMULATED GAMMA INTERFERON [id number] AG SPOT COUNT [#] IN BLOOD 2 05/10 Specimen Type: BLOOD Comment: A negative test result does not exclude the possibility of exposure to or infection with Mycobacteri um tuberculosi s (M. tuberculosi s). Patients with recent exposure to TB infected individuals exhibiting a negative T-SPOT.TB result should be considered for retesting within 6 weeks or if other relevant clinical symptoms indicate. Results from T-SPOT.TB testing must be used in conjunction with each individual' s epidemiolog ical history, current medical status, and results of other diagnostic evaluations . The T-SPOT.TB test is qualitative and results are reported as positive, borderline, or negative, given that the test controls perform as expected. In line with the Centers for Disease Control and Prevention' s 2010 recommendat ion to report quantitativ e measurement s alongside the qualitative result, the laboratory provides spot counts for information al purposes only. The T-SPOT.TB test should not be interpreted as a quantitativ e test. For additional information , please refer to http://Sunrun/faq/FA Q215 (This link is being provided for information al/ educational purposes only.) Test Performed by [employer], [id number] [place], [place] Rodger Bender M.D., Ph.D., Director of Laboratorie s , CLIA [id number] TEST PERFORMED AT: , Ordering Provider: MESSI BAEZ V Report Released Date/Time: May 06, 2024 01:47 PM Reporting Lab: [facility] [address] [facility] [address] Performing Lab: [facility] [address] [address] [facility] T-SPOT TB PANEL MITOGEN STIMULATED GAMMA INTERFERON POSITIVE CONTROL SPOT COUNT [#] IN BLOOD Passed 05/10 Specimen Type: BLOOD Comment: A negative test result does not exclude the possibility of exposure to or infection with Mycobacteri um tuberculosi s (M. tuberculosi s). Patients with recent exposure to TB infected individuals exhibiting a negative T-SPOT.TB result should be considered for retesting within 6 weeks or if other relevant clinical symptoms indicate. Results from T-SPOT.TB testing must be used in conjunction with each individual' s epidemiolog ical history, current medical status, and results of other diagnostic evaluations . The T-SPOT.TB test is qualitative and results are reported as positive, borderline, or negative, given that the test controls perform as expected. In line with the Centers for Disease Control and Prevention' s 2010 recommendat ion to report quantitativ e measurement s alongside the qualitative result, the laboratory provides spot counts for information al purposes only. The T-SPOT.TB test should not be interpreted as a quantitativ e test. For additional information , please refer to http://educ ation.Connected .Spacious App/faq/FA Q215 (This link is being provided for information al/ educational purposes only.) Test Performed by [employer] [address] [place], [place] Rodger Bender M.D., Ph.D., Director of Laboratorie s , CLIA [id number] TEST PERFORMED AT: , Ordering Provider: MESSI BAEZ V Report Released Date/Time: May 06, 2024 01:47 PM Reporting Lab: [facility] [address] [facility] [address] Performing Lab: [facility] [address] [address] [facility] T-SPOT TB PANEL GAMMA INTERFERON NEGATIVE CONTROL SPOT COUNT [#] IN BLOOD Passed 05/10 Specimen Type: BLOOD Comment: A negative test result does not exclude the possibility of exposure to or infection with Mycobacteri um tuberculosi s (M. tuberculosi s). Patients with recent exposure to TB infected individuals exhibiting a negative T-SPOT.TB result should be considered for retesting within 6 weeks or if other relevant clinical symptoms indicate. Results from T-SPOT.TB testing must be used in conjunction with each individual' s epidemiolog ical history, current medical status, and results of other diagnostic evaluations . The T-SPOT.TB test is qualitative and results are reported as positive, borderline, or negative, given that the test controls perform as expected. In line with the Centers for Disease Control and Prevention' s 2010 recommendat ion to report quantitativ e measurement s alongside the qualitative result, the laboratory provides spot counts for information al purposes only. The T-SPOT.TB test should not be interpreted as a quantitativ e test. For additional information , please refer to http://educ ation.Connected .com/faq/FA Q215 (This link is being provided for information al/ educational purposes only.) Test Performed by [employer], [facility], [address] [place] [address] Rodger Bender M.D., Ph.D., Director of Laboratorie s , CLIA [id number] TEST PERFORMED AT: , Ordering Provider: MESSI BAEZ V Report Released Date/Time: May 06, 2024 01:47 PM Reporting Lab: [facility] [address] [facility] [id number] Performing Lab: [facility] [address] [facility], [address] [place] [id number] [facility] Vital Signs Combined list of inpatient and outpatient Vital Signs from Department of Defense and Veterans Affairs, ranging from 12 months to all on record, depending upon the facility. Vital Sign Value Date Comments Source SYSTOLIC BLOOD PRESSURE 138 01/06/20 25 12:25:04 [facility] DIASTOLIC BLOOD PRESSURE 85 025 12:25:04 [facility] PULSE OXIMETRY 100 % 01/04/2025 10:05:46 [facility] TEMPERATURE 97.2 01/04/2025 10:05:46 [facility] PULSE 67 01/04/2025 10:05:46 [facility] RESPIRATION 18 01/04/2025 10:05:46 [facility] SYSTOLIC BLOOD PRESSURE 124 12/24/19 25 13:36:05 [facility] DIASTOLIC BLOOD PRESSURE 85 025 13:36:05 [facility] PULSE OXIMETRY 100 % 12/23/2024 13:36:05 [facility] WEIGHT 147 12/23/2024 13:36:05 [facility] BMI 28 kg/m2 12/23/2024 13:36:05 [facility] PAIN 6 12/23/2024 13:36:05 [facility] TEMPERATURE 97.6 12/23/2024 13:36:05 [facility] PULSE 76 12/23/2024 13:36:05 [facility] RESPIRATION 16 12/23/2024 13:36:05 [facility] SYSTOLIC BLOOD PRESSURE 118 09/17/19 25 09:09:04 [facility] DIASTOLIC BLOOD PRESSURE 64 025 09:09:04 [facility] PULSE OXIMETRY 99 09/16/2024 09:09:04 [facility] WEIGHT 144 09/16/2024 09:09:04 [facility] BMI 27 kg/m2 09/16/2024 09:09:04 [facility] PAIN 0 09/16/2024 09:09:04 [facility] HEIGHT 61 09/16/2024 09:09:04 [facility] TEMPERATURE 97.5 09/16/2024 09:09:04 [facility] PULSE 97 09/16/2024 09:09:04 [facility] RESPIRATION 16 09/16/2024 09:09:04 [facility] SYSTOLIC BLOOD PRESSURE 133 08/19/19 25 14:08:05 [facility] DIASTOLIC BLOOD PRESSURE 91 025 14:08:05 [facility] PULSE OXIMETRY 99 08/19/2024 14:08:05 [facility] WEIGHT 146 08/19/2024 14:08:05 [facility] BMI 28 kg/m2 08/19/2024 14:08:05 [facility] PAIN 7 08/19/2024 14:08:05 [facility] TEMPERATURE 96.9 08/19/2024 14:08:05 [facility] PULSE 64 08/19/2024 14:08:05 [facility] RESPIRATION 16 08/19/2024 14:08:05 [facility] Encounters Combined list of: 1) Encounters from Department of Veterans Affairs facilities going backup to the last 18 months, not all VA inpatient encounters are included; 2) Encounters from the Department of Defense facilities going backup to 280 months. Location Location Details Encounter Type Encounter Number Reason For Visit Attending Provider ADM Date DC Date Status Disposition Source [facility] Outpatient Encounter [id number] 10/21 [facility] Outpatient Encounter [id number] 11/02 [facility] Outpatient Encounter [id number] JOHNGENO THORNTON KWAN 11/04 [facility] Out[facility] Encounter [id number] JOHNGENO 12/04 [facility] Outpatient Encounter [id number] 12/07 [facility] Outpatient Encounter [id number] 12/29 [facility] Outpatient Encounter [id number] DIONNE DESHPANDE 12/31 [facility] OFFICE O/P EST MOD 30 MIN [id number] Diagnos is: ICD-10- CM I10 Essenti al (primar y) hyperte nsion Yuli FRANCO 01/11 [facility] Outpatient Encounter [id number] 01/12 [facility] Outpatient Encounter [id number] DIONNE DESHPANDE 01/13 [facility] SELF CARE MNGMENT TRAINING [id number] Diagnos is: ICD-10- CM M84.472 A Patholo gical fractur e, left ankle, init encntr for fractur e ANNA LEDESMA 01/15 [facility] IE [facility] Outpatient Encounter [id number] 01/18 [facility] Outpatient Encounter [id number] 1.01/21 [facility] Outpatient Encounter [id number] 02/16 [facility] Outpatient Encounter [id number] JOSHUA SIMON P 02/19 [facility] Outpatient Encounter [id number] 02/24 [facility] OFFICE O/P EST LOW 20 MIN [id number] Diagnos is: ICD-10- CM F34.1 Dysthym ic disorde r [facility] [place] EVEN G 02/26 [facility] (631GE) QNHP OL DIG ASSMT&MGMT 11-20 [id number] Diagnos is: ICD-10- CM J30.9 Allergi c rhiniti s, unspeci fied SUMMER,QUE N 02/26 [facility] (631GE) [facility] Outpatient Encounter [id number] 03/09 [facility] Out[facility] Encounter [id number] [facility] Out[facility] Encounter [id number] [facility] Out[facility] Encounter [id number] 1.04/06 [facility] O/P EST MOD 30 MIN [id number] Diagnos is: ICD-10- CM F34.1 Dysthym ic disorde r [facility] [place] [place]UMBO G 04/16 [place] [facility] Outpatient Encounter [id number] 1.05/06 [facility] Out[facility]counter [id number] 1. DIONNE DESHPANDE 05/10 [facility] Out[facility] Encounter [id number] 1. Marc BAEZ V 05/13 [facility] OFF[facility] O/P EST LOW 20 MIN [id number] 1BY. 35 Diagnos is: ICD-10- CM F34.[address] FLACA Oconnor G 05/14 [place] [facility] PSYTX W PT 45 MINUTES [id number] Diagnos is: ICD-10- CM F43.12 Post-tr aumatic stress disorde r, chronic CAMPONOGAR A,ROBERT 05/14 [facility] QNHP OL DIG ASSMT&MGMT 21+ [id number] 1. Diagnos is: ICD-10- CM M45.9 Ankylos ing spondyl itis of unspeci fied sites in [place], [place] DARRON MARTINEZ III 05/14 [facility] Outpatient Encounter [id number] 1.05/18 [facility] PSYTX W PT 45 MINUTES [id number] 1. Diagnos is: ICD-10- CM F43.12 Post-tr aumatic stress disorde r, chronic CAMPONOGAR A,ROBERT 05/28 [facility] OFFICE O/P EST LOW 20 MIN [id number] Diagnos is: ICD-10- CM F34.1 Dysthym ic disorde r PAL[place], EVEN G 06/11 [place] [facility] PSYTX W PT 45 MINUTES [id number] 1. Diagnos is: ICD-10- CM F43.12 Post-tr aumatic stress disorde r, chronic CAMPONOGAR A,ROBERT 06/11 [facility] Out[facility] Encounter [id number] CAMPONOGAR A,ROBERT 06/11 [facility] Out[facility] Encounter [id number] 1.06/15 [facility] Outpatient Encounter [id number] [facility] Outpatient Encounter [id number] [facility] PSYTX W PT 45 MINUTES [id number] Diagnos is: ICD-10- CM F43.12 Post-tr aumatic stress disorde r, chronic CAMPONOGAR A,ROBERT 06/18 [facility] Out[facility] Encounter [id number] [facility] PSYTX W PT 45 MINUTES [id number] Diagnos is: ICD-10- CM F43.12 Post-tr aumatic stress disorde r, chronic CAMPONOGAR A,ROBERT 07/02 [facility] Out[facility] Encounter [id number] CAMPONOGAR A,ROBERT 07/02 [facility] PSYTX W PT 45 MINUTES [id number] Diagnos is: ICD-10- CM F43.12 Post-tr aumatic stress disorde r, chronic CAMPONOGAR A,ROBERT 07/09 [facility] PSYTX W PT 60 MINUTES [id number] Diagnos is: ICD-10- CM F33.1 Major depress lizzie disorde r, recurre nt, moderat e CAMPONOGAR A,ROBERT 07/16 [facility] [place] OFFICE O/P EST LOW 20 MIN [id number] Diagnos is: ICD-10- CM F34.1 [address] disorde r [facility] [place] EVEN G 07/19 [place] [facility] PSYTX W PT 45 MINUTES [id number] Diagnos is: ICD-10- CM F43.12 Post-tr aumatic stress disorde r, chronic CAMPONOGAR A,ROBERT 07/23 [facility] PSYTX W PT 45 MINUTES [id number] Diagnos is: ICD-10- CM F33.1 Major depress lizzie disorde r, recurre nt, moderat e CAMPONOGAR A,ROBERT 07/30 [facility] PSYTX W PT 60 MINUTES [id number] Diagnos is: ICD-10- CM F33.1 Major depress lizzie disorde r, recurre nt, moderat e CAMPONOGAR A,ROBERT 08/13 [facility] OFFICE O/P EST LOW 20 MIN [id number] Diagnos is: ICD-10- CM M45.9 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 BAEZ,K AREN V 08/19 [facility] PSYTX W PT 45 MINUTES [id number] Diagnos is: ICD-10- CM F33.1 Major depress lizzie disorde r, recurre nt, moderat e CAMPONOGAR A,ROBERT 08/20 [facility] PSYTX W PT 45 MINUTES [id number] Diagnos is: ICD-10- CM F43.12 Post-tr aumatic stress disorde r, chronic CAMPONOGAR A,ROBERT 08/27 [facility] Outpatient Encounter [id number] Lorenzo RIVERA KARENA H 09/06 [facility] Outpatient Encounter [id number] Lorenzo RIVERA KARENA H 09/07 [facility] PSYTX W PT 45 MINUTES [id number] Diagnos is: ICD-10- CM F33.1 Major depress lizzie disorde r, recurre nt, moderat e CAMPONOGAR A,ROBERT 09/10 [facility] Outpatient Encounter [id number] 09/10 [facility] OFFICE O/P EST MOD 30 MIN [id number] Diagnos is: ICD-10- CM N95.8 Other specifi ed menopau carola and perimen opausal disorde rs Yuli FRANCO MASTER LEO 09/16 [facility] PSYTX W PT 45 MINUTES [id number] Diagnos is: ICD-10- CM F33.1 Major depress lizzie disorde r, recurre nt, moderat e CAMPONOGAR A,ROBERT 09/17 [facility] Outpatient Encounter [id number] 09/17 [facility] Outpatient Encounter [id number] 09/24 [facility] OFFICE O/P EST LOW 20 MIN [id number] Diagnos is: ICD-10- CM F34.1 Dysthym ic disorde r [place],ST EVEN G 09/24 [place] [facility] PSYTX W PT 45 MINUTES [id number] Diagnos is: ICD-10- CM F43.12 Post-tr aumatic stress disorde r, chronic CAMPONOGAR A,ROBERT 10/08 [facility] PSYTX W PT 45 MINUTES [id number] Diagnos is: ICD-10- CM F33.1 Major depress lizzie disorde r, recurre nt, moderat e CAMPONOGAR A,ROBERT 10/29 [facility] PSYTX W PT 45 MINUTES [id number] Diagnos is: ICD-10- CM F33.1 Major depress lizzie disorde r, recurre nt, moderat e CAMPONOGAR A,ROBERT 11/05 [facility] Outpatient Encounter [id number] 11/08 [facility] PSYTX W PT 45 MINUTES [id number] Diagnos is: ICD-10- CM F33.1 Major depress lizzie disorde r, recurre nt, moderat e CAMPONOGAR A,ROBERT 11/12 [facility] PSYTX W PT 45 MINUTES [id number] Diagnos is: ICD-10- CM F43.12 Post-tr aumatic stress disorde r, chronic CAMPONOGAR A,ROBERT 11/19 [facility] Out[facility] Encounter [id number] 11/26 [facility] Out[facility] Encounter [id number] 12/06 [facility] Out[facility] Encounter [id number] Lorenzo RIVERA 12/06 [facility] PSYTX W PT 45 MINUTES [id number] Diagnos is: ICD-10- CM F43.12 Post-tr aumatic stress disorde r, chronic CAMPONOGAR A,ROBERT 12/10 [facility] PSYTX W PT 45 MINUTES [id number] Diagnos is: ICD-10- CM F43.12 Post-tr aumatic stress disorde r, chronic CAMPONOGAR A,ROBERT 12/17 [facility] Out[facility] En[facility] [id number] 12/21 [facility] OFFICE O/P EST MOD 30 MIN [id number] Diagnos is: ICD-10- CM 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.9 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 BAEZ,K AREN V 12/23 [facility] PSYTX W PT 45 MINUTES [id number] Diagnos is: ICD-10- CM F33.1 Major depress lizzie disorde r, recurre nt, moderat e CAMPONOGAR A,ROBERT 12/31 [facility] Out[facility] Encounter [id number] Marc BAEZ AREN V 01/03 [facility] Out[facility] Encounter [id number] 01/03 [facility] OFFICE O/P EST MOD 30 MIN [id number] Diagnos is: ICD-10- CM Z00.00 Encntr for general adult medical exam w/o abnorma l finding s SALVADOR,L MASTER LEO 01/04 [facility] Out[facility] Encounter [id number] CAMPONOGAR A,ROBERT 01/07 [facility] Out[facility] Encounter [id number] CAMPONOGAR A,ROBERT 01/07 [facility] Out[facility] Encounter [id number] 01/27 [facility] BRIEF EMOTIONAL/ BEHAV ASSMT [id number] Diagnos is: ICD-10- CM F43.12 Post-tr aumatic stress disorde r, chronic CIPRIANO MCCLURE 01/28 [facility] Out[facility] Encounter [id number] 01/28 [facility] En[facility] [id number] 01/31 [place] [facility] PSYTX W PT 45 MINUTES [id number] Diagnos is: ICD-10- CM F43.12 Post-tr aumatic stress disorde r, chronic CAMPONOGAR A,ROBERT 01/31 [place] [facility] Outpatient Encounter [id number] 02/01 [facility] Outpatient Encounter [id number] Lorenzo RIVERA 02/02 [place] [facility] Outpatient Encounter [id number] VELVET LENTZ A 02/06 [place] [facility] Outpatient Encounter [id number] 02/16 [place] [facility] Social History Combined list of available smoking, tobacco, and other social history from Department of Defense and Veterans Affairs facilities. Social History Type Response Date Comment Sourc e Tobacco smoking status NHIS [place]-TOBACCO NEVER USED OTHER TYPE 05/14/2024 [facility] [place] [facility] History of tobacco use NV-TOBACCO NEVER USED CIGARETTES 05/14/2024 [facility] [place] [facility] History of tobacco use VA-TOBACCO NEVER USED 03/18/2023 [place] This section is an empty social history section. DoD Plan of Care List of future care activities from Department of Veterans Affairs facilities. Additional future care activities may be listed in the Assessment and Plan section. Date/Time Care Activity Care Activity Detail Facili ty 02/16/2025 AMBULATORY - PSYCHIATRY AMBULATORY - PS[facility]C [facility]RY [facility] Advance Directives List of completed, amended, or rescinded Advance Directives on record at Department of Veterans Affairs facilities. An actual copy of the Directive is not included. Date Advance Directive Provider Source 03/25/2023 ADVANCE DIRECTIVE PETROS MOTLEY [facility]
== END 2025-02-16 09:47 | disposition home or self-care (01) ==
LOC: HO.HUSH 08:56
PROVIDERS: PCP Internal Medicine; Visit Provider Urology
DX: N20.0 Calculus of kidney (principal); N39.0 Urinary tract infection, site not specified
CPT/HCPCS: 99214

== ENCOUNTER → 2025-02-16 08:56 | Outpatient (BNVA) | payer OTHER, SELFPAY | PROVIDERS: PCP Internal Medicine; Visit Provider Urology | DX: N20.0 Calculus of kidney (principal); N39.0 Urinary tract infection, site not specified | CPT/HCPCS: 99212 ==

== ENCOUNTER → 2025-03-18 15:15 | Outpatient (BNV) | payer OTHER, SELFPAY | PROVIDERS: PCP Internal Medicine; Visit Provider Radiology Body Imaging | DX: Z12.31 Encounter for screening mammogram for malignant neoplasm of breast (principal) | CPT/HCPCS: 77063; 77067 ==

== ENCOUNTER 2025-03-18 15:16 | Outpatient (REF) | payer OTHER, SELFPAY ==
--- NOTE | ~2025-03-18 | MM_ITS ---
EXAMINATION: MM SCREENING DIGITAL BREAST TOMOSYNTHESIS, BILATERAL CLINICAL INFORMATION: Screening. Asymptomatic. COMPARISON: Comparison made to multiple prior, most recent March 09, 2024, and most remote July 26, 2021. TECHNIQUE: Digital mammography is performed in craniocaudal and mediolateral oblique views along with computer-aided detection (CAD). Digital breast tomosynthesis is performed in implant-displaced craniocaudal and implant-displaced mediolateral oblique views along with computer-aided detection (CAD). Synthesized 2D images are generated from the tomosynthesis. FINDINGS: BREAST COMPOSITION: The breasts are heterogeneously dense, which may obscure small masses. BILATERAL BREASTS: Bilateral retropectoral silicone implants are mammographically intact. No significant masses, suspicious calcifications or other abnormalities are seen in either breast. MM/MM tomosynthesis screen imp BI IMPRESSION: BILATERAL BREASTS: Benign, no mammographic evidence of malignancy. Normal interval follow-up is recommended in 12 months. ASSESSMENT: BI-RADS: Category 2: Benign RECOMMENDATION: Routine annual mammography screening. FOLLOW-UP: 1 year F/U This examination should not preclude the clinical evaluation of a suspicious palpable abnormality. This patient's information was entered into a reminder system with a target due date for their next mammogram. Electronically signed by: Ruiz Manuel MD 03/22/2025 07:16 AM EDT
--- OUTSIDE RECORDS SUMMARY | 2025-03-18 15:44 | XMS_ITS | Clinical Summary ---
Author Organization [employer] Address [address] [place] [address] [address] [place] [address] Care Team Providers Care Intermediate Teacher Name Role Phone Unavailable Primary Care Provider [...] Cancer Screening 2010 HPV/Cotest 2010 Mammogram 2020 Dental X-Ray: Full Mouth 04/26/2024 04/25/2021 Dental Oral Exam 04/30/2024 10/28/2023, 06/07/2022 Dental Prophylaxis 04/30/2024 10/28/2023, 06/07/2022 Tobacco Screening 10/27/2024 10/28/2023 Dental X-Ray: Bitewings 10/28/2024 10/28/19 24, 06/07/2022 COVID-19 Vaccine ( - 2023-2 5 season) 2025 Influenza Vaccine (#1) 2025 Zoster Vaccines (1 [...]
--- OUTSIDE RECORDS SUMMARY | 2025-03-18 15:44 | XMS_ITS | Encounter Summary ---
Author Organization [employer] [facility] Address [address] [place] [address] Care Team Providers Care Shift Commander Name Role Phone Unavailable Primary Care Provider Unavailabl e Encounter Details Date Type Department Care Team (Latest Contact Info) Description 04/25/2021 Abstract [facility] CONVERSIONS Dental, Provider, DDS Social History Tobacco Use Types Packs/Day Years Used Date Smoking Tobacco: Never Assessed Comments Unknown Sex and Gender Information Value Date Recorded Sex Assigned at Female 04/22/2022 10:33 AM EDT Legal Sex Female 10:33 AM EDT Gender Identity Female 04/22/2022 10:33 AM EDT Sexual Orientation Straight 06/07/2022 2: 47 PM EST documented as of this encounter Plan of Treatment Not on file documented as of this encounter Visit Diagnoses Not on filedocumented in this encounter
== END 2025-03-18 15:17 | disposition home or self-care (01) ==
LOC: HO.MAMMO 15:16
PROVIDERS: PCP Internal Medicine; Visit Provider Nurse Practitioner Family
DX: Z12.31 Encounter for screening mammogram for malignant neoplasm of breast (principal)
CPT/HCPCS: 77063; 77067